=== PATIENT | female | born 1960 | race Caucasian/White ===

== ENCOUNTER → 2018-01-16 12:26 | Outpatient (CLI) | payer OTHER, SELFPAY ==
--- NOTE | 2018-01-16 12:26 | DT_ITS ---
This patient was seen during an EMR downtime January 14, 2018 - January 21, 2018. This patient may have a combination of paper and electronic documentation or all paper documentation. All documentation is viewable within the e-chart portion of [facility] for each patient visit.
[2018-01-21 12:39] LABS: AST(SGOT) 19 U/L (15-37); Alanine Aminotransfer ALT/SGPT 33 U/L (13-56); Albumin, Serum 4.2 g/dL (3.2-5.0); Alkaline Phosphatase 57 U/L (45-117); Bilirubin, Direct 0.09 mg/dL (0.00-0.30); Cholesterol 226 mg/dL (200); Globulin 3.7 g/dL (2.2-4.2); High Density Lipoprotein 50 mg/dL; Protein, Total 7.9 g/dL (6.4-8.2); Triglycerides 173 mg/dL; Very Low Density Lipoprotein 35 mg/dL (5-40)
== END ==
PROVIDERS: Family Provider Family Medicine; PCP Family Medicine; Visit Provider Internal Medicine Cardiovascular Disease
DX: I10 Essential (primary) hypertension (principal); I35.1 Nonrheumatic aortic (valve) insufficiency
CPT/HCPCS: 36415; 80061; 80076

== ENCOUNTER 2018-01-16 12:56 | Emergency (ER) | payer OTHER, SELFPAY ==
--- NOTE | 2018-01-16 12:56 | DT_ITS ---
This patient was seen during an EMR downtime January 14, 2018 - January 21, 2018. This patient may have a combination of paper and electronic documentation or all paper documentation. All documentation is viewable within the e-chart portion of [facility] for each patient visit.
== END 2018-01-16 13:50 | disposition home or self-care (01) ==
LOC: ED 01-17 13:41
PROVIDERS: Emergency Provider Emergency Medicine; Family Provider Family Medicine; PCP Family Medicine
DX: L03.115 Cellulitis of right lower limb (principal); I10 Essential (primary) hypertension; R01.1 Cardiac murmur, unspecified; Z90.710 Acquired absence of both cervix and uterus; Z90.89 Acquired absence of other organs; Z79.899 Other long term (current) drug therapy; Z87.891 Personal history of nicotine dependence
CPT/HCPCS: 99282

== ENCOUNTER → 2018-01-24 08:03 | Outpatient (CLI) | payer OTHER, SELFPAY ==
--- NOTE | 2018-01-24 08:06 | ECHOD_ITS ---
Reason For Study: Non rheumatic AV insufficiency, HTN. Procedure This was a 2D Doppler, Color Flow transthoracic echocardiogram. Exam performed in department. Left Ventricle Moderate concentric left ventricular hypertrophy. The estimated ejection fraction is 65 %. Stage 1 diastolic dysfunction. No regional wall motion abnormalities noted. Right Ventricle Normal size and thickness. Normal systolic function. Atria The left atrium is mildly enlarged. Normal right atrium. Normal atrial septum. Mitral Valve The mitral valve is structurally normal. No prolapse or stenosis seen. Tricuspid Valve Normal tricuspid valve. Trivial tricuspid valve insufficiency. Right ventricular systolic pressure estimated to be 27 mmHg. Aortic Valve Trisinus/trileaflet aortic valve. Mild diffuse aortic valve thickening. Mild-Moderate (1-2+) eccentric aortic valve insufficiency. Pulmonic Valve Normal pulmonic valve. Great Vessels Normal aortic root. Normal arch. Normal inferior vena cava. Inferior vena cava collapse with sniff. Pericardium/Pleural No pericardial effusion. MMode/2D Measurements & Calculations LVIDd: 4.6 cm IVSd: 1.4 cm Ao root diam: 3.1 cm LVIDs: 3.0 cm LVPWd: 1.4 cm LA dimension: 4.8 cm RVDd: 2.7 cm FS: 35.4 % LAV(MOD-bp): 59.5 ml LA A4 area: 20.5 cm2 RA A4 area: 18.6 cm2 LAV(MOD-bp) Indexed: 30.2 ml/m2 LAV(MOD-sp2): 55.7 ml LAV(MOD-sp4): 55.6 ml Doppler Measurements & Calculations MV E max tigre: 58.4 cm/sec Lat Peak E' Tigre: 6.7 cm/sec Med Peak E' Tigre: 7.3 cm/sec MV A max tigre: 113.1 cm/sec E/E' lat: 8.7 E/E' med: 8.0 MV E/A: 0.52 Ao V2 max: 206.0 cm/sec AI max tigre: 452.9 cm/sec LV V1 max: 141.4 cm/sec Ao max P.0 mmHg AI max P.1 mmHg LV V1 max P.0 mmHg Ao V2 mean: 138.3 cm/sec AI dec slope: 193.1 cm/sec2 LV V1 mean P.6 mmHg Ao mean P.7 mmHg AI P1/2t: 686.9 msec LV V1 mean: 103.1 cm/sec Ao V2 VTI: 45.9 cm LV V1 VTI: 34.1 cm PA V2 max: 99.0 cm/sec TR max tigre: 240.6 cm/sec TR max P.2 mmHg Interpretation Summary Moderate concentric left ventricular hypertrophy. The estimated ejection fraction is 65 %. Stage 1 diastolic dysfunction. Trivial tricuspid valve insufficiency. Right ventricular systolic pressure estimated to be 27 mmHg. Mild-Moderate (1-2+) eccentric aortic valve insufficiency. Compared to echo report dated 04/25/2010, no appreciable changes noted. Would consider a transesophageal echocardiogram if clinically indicated. Ordering Physician: Jimi Yi Referring Physician: Benny Ivy Performed By: Sharon Morillo, RDCS, RVT
== END ==
PROVIDERS: Family Provider Family Medicine; PCP Family Medicine; Visit Provider Internal Medicine Cardiovascular Disease
DX: I35.1 Nonrheumatic aortic (valve) insufficiency (principal); I10 Essential (primary) hypertension
CPT/HCPCS: 93306

== ENCOUNTER 2018-02-02 09:20 | Emergency (ER) | payer OTHER, SELFPAY ==
[2018-02-02 09:21] VITALS: BP 163/93; PULSE 74; RESP 16; TEMP 36.7; O2SAT 98; BMI 29.5
--- NOTE | 2018-02-02 09:32 | CT_ITS ---
STUDY: CT ABDOMEN AND PELVIS WITHOUT CONTRAST REASON FOR EXAM: Female, 57 years old. Abdominal pain and nausea RADIATION DOSAGE (If Supplied By Facility): CTDIvol = ( 11.37 ) mGy, DLP = ( 587.89 ) mGycm TECHNIQUE: Transaxial images were obtained from the lower chest to the upper thighs without oral contrast, and without intravenous contrast. Sagittal and coronal images were reconstructed. Individualized dose optimization techniques were used for this CT. COMPARISON: November 08, 2015 FINDINGS: There is minimal dependent atelectasis in both lung bases. There is no pleural effusion. The heart is normal in size. The liver is unremarkable. The gallbladder and biliary ducts are unremarkable. The spleen is unremarkable. The pancreas is unremarkable. The adrenal glands are unremarkable. The right kidney is unremarkable. There is no dilatation of the collecting system in the right kidney. The left kidney is unremarkable. There is no dilatation of the collecting system in the left kidney. The stomach is unremarkable. The small bowel is unremarkable. There are diverticula scattered throughout the colon without adjacent stranding. The appendix is surgically absent. There are minimal scattered vascular calcifications. The IVC is unremarkable. The retroperitoneum is unremarkable. There is no free fluid in the abdomen. The urinary bladder is unremarkable. There is absence of the uterus consistent with a prior hysterectomy. There are no abnormal masses in the adnexal regions. There are surgical changes along the anterior abdominal wall. There are mild degenerative changes in the visualized spine. CT/Abdomen/Pelvis without Cont IMPRESSION: No acute abnormalities are seen in the abdomen or pelvis. There is diverticulosis of the colon without findings to suggest acute diverticulitis. There are no acute bowel abnormalities. There is no ascites, free air, inflammation or significant lymphadenopathy. Electronically Signed: Angela Cherry MD at 10:40 EDT Tel Direct: [phone], Service support ,
--- NOTE | 2018-02-02 09:33 | ED.VISSUMM ---
- ER Visit Summary Date of Service: 02/02/18 Chief Complaint: []abdominal pain nausea since Sunday History of Present Illness: The patient is a 57 F [] history of being born with a twisted bowel , than 7 years ago she had a bowel obstruction related to adhesions, appendectomy, reports on Sunday she ate some unspecified food at a restaurant since then she has had protracted sense of nausea and abdominal pressure she is having normal bowel bladder habits she is not vomited and she is actually hungry, the sense of nausea intensified and she came in today for evaluation, no fever no cough bowel and bladder habits have been normal, she has a leaky heart valve being seen by Dr. Yi and that is stable otherwise she denies a past history except as above Physical Examination: [] Her vital signs are within normal range she is in no distress head exam is unremarkable nose and throat are clear the neck is supple the lungs are clear the heart tones are normal the abdomen is soft is a vague pain to the right upper quadrant, there is no rebound guarding organomegaly the upper lower extremities are unremarkable the backs unremarkable neurologically she is awake alert answering questions moving all 4 extremities with a negative neurologic exam Test Results: [] Emergency Department Course and Treatment: [] IV fluids pain management labs CT abdomen Patient's labs CT abdomen pelvis show nothing acute please see those reports on reevaluation she is feeling better She is asking if maybe lifting boxes could have caused her abdominal pain I respond to the exact etiology is unclear some of her pain was right-sided, some of it related to eating food at a restaurant have explained her the concept of hepatobiliary dysfunction need for follow-up avoid lifting the boxes bland diet she will see her surgeon Dr. saha for further management and return for change in symptoms Treatment Plan: [] Disposition: [] Home stable Impression: [] Abdominal pain and nausea resolved This note was generated with [employer] dictation software. It may contain incorrect words, spelling, and punctuation that were not noted in review of the chart prior to signing ED Disposition - Plan for ED Patient: Chief Complaint: Abd Pain Referrals: Sailaja Elizalde MD [Primary Care Provider] -
[2018-02-02 09:48] LABS: Bacteria 0 SEEN /hpf (None Seen); Mucous, Urine 0 SEEN /hpf (<or=2+); Squamous Epithelial Cells - UA 0 SEEN /hpf (5-10); White Blood Cells 0 SEEN /hpf (0-5)
[2018-02-02 09:50] LABS: Color, Urine Yellow (Yellow); Glucose, Dipstick Normal (Normal); Ketone-Dipstick Negative (Negative); Leukocyte Esterase-Dipstick Negative /ul (Negative); Nitrite-Dipstick Negative (Negative); Occult Blood-Urine 10 /ul (Negative); Protein-Dipstick Negative (Negative); Urine Bilirubin Dipstick Negative (Negative); Urine Clarity Clear (Clear); Urine Urobilinogen Normal (Normal)
[2018-02-02] MEDS: 0.9% Normal Saline 1,000 ML 1000 ML IV (09:56)
[2018-02-02] MEDS: Ondansetron 4 MG/2 ML Vial IV (09:56)
[2018-02-02 10:01] LABS: Red Blood Cells-Urine 0-5 SEEN /hpf (0-5)
[2018-02-02 10:06] LABS: Absolute Lymphocyte Count 2.01 X10^3/ul (0.83-4.51); Absolute Neutrophil Count 5.2 X10^3/uL (2.0-7.7); Basophil# 0.06 X10^3/uL; Basophil% 0.8 % (0-1); Eosinophil# 0.11 X10^3/uL; Eosinophils% 1.4 % (0-5); Hematocrit 41.7 % (37-47); Hemoglobin 14.3 g/dl (12.0-15.0); Lymphocyte # 2.01 X10^3/ul (4.0); Lymphocyte % 25.3 % (19-41); Mean Corp Hgb Conc 34.3 g/gl (32-36); Mean Corpuscular Hgb 30.2 pg (27.0-32.0); Mean Platelet Vol. 9.5 fl (6.2-12.0); Monocyte# 0.55 X10^3/uL; Monocyte% 6.9 % (0-10); Neutrophil % 65.3 % (47-70); POSITIVE COUNT NO; POSITIVE DIFFERENTIAL NO; POSITIVE MORPHOLOGY NO; Platelet Count 367 K/mm3 (150-450); RBC Distribution Width CV 13.9 % (11.6-14.6); RBC Distribution Width SD 44.5 fl (35.1-43.9); Red Blood Count 4.74 M/mm3 (4.2-5.4)
[2018-02-02 10:23] LABS: AST(SGOT) 19 U/L (15-37); Alanine Aminotransfer ALT/SGPT 33 U/L (13-56); Albumin, Serum 4.3 g/dL (3.2-5.0); Alkaline Phosphatase 85 U/L (45-117); Anion Gap 6 (5-15); BUN 13 mg/dL (7-18); BUN/Creat Ratio 16.4 RATIO (10-20); Bilirubin, Direct 0.16 mg/dL (0.00-0.30); Calcium,Total 9.5 mg/dL (8.5-10.1); Chloride 105 mmol/L (98-107); Creatinine, Serum 0.79 mg/dL (0.55-1.02); EST Glomerular Filtration Rate 79 mL/min (>60); Est Glom Filt Rate - Afr Amer 95 mL/min (>60); Estimated Creatinine Clearance 74.56 ml/min; Globulin 3.8 g/dL (2.2-4.2); Glucose 101 mg/dL (74-106); Lipase 100 U/L (73-393); Potassium 3.6 mmol/L (3.5-5.1); Protein, Total 8.1 g/dL (6.4-8.2); Sodium Level 138 mmol/L (136-145)
--- NOTE | 2018-02-02 11:22 | ED.DEP ---
ED Disposition - Plan for ED Patient: Chief Complaint: Abd Pain Instructions: ED Abdominal Pain Unkn Cause Prescriptions: Ondansetron [Zofran Odt] 4 mg PO Q8H PRN PRN #10 tab PRN Reason: Nausea Referrals: Sailaja Elizalde MD [Primary Care Provider] -
[2018-02-02 11:30] VITALS: BP 151/90; PULSE 63; RESP 16; O2SAT 94
== END 2018-02-02 11:32 | disposition home or self-care (01) ==
PROVIDERS: Emergency Provider Emergency Medicine; Family Provider Internal Medicine; PCP Internal Medicine
DX: R10.11 Right upper quadrant pain (principal); R11.0 Nausea; I38 Endocarditis, valve unspecified; Z87.19 Personal history of other diseases of the digestive system; Z90.89 Acquired absence of other organs; Z79.899 Other long term (current) drug therapy
CPT/HCPCS: 74176; 80048; 80076; 81001; 83690; 85025; 96361; 96374; 96375; 99284; J7030; A4216; J2405

== ENCOUNTER → 2018-02-18 08:27 | Outpatient (CLI) | payer OTHER, SELFPAY ==
--- NOTE | 2018-02-18 08:30 | STEWCON_ITS ---
Reason For Study: Valve Replacement-Eval Stress Results Protocol: Bobo Protocol Maximum Predicted HR: 161 bpm Target HR: 137 bpm% Max imum Predicted HR: 103 % DurationHeart Rate Stage (mm:ss) (bpm) BPCom ment Baseline 63 138/80 No Chest Pain; Definity 2 ML Diluted Given Bobo Protocol Stage I 3:00 12 9 140/72No Chest Pain; Mild Dyspnea Bobo Protocol Stage II 3:00 15 3 172/80No Chest Pain; Mild to Moderate Dyspnea Bobo Protocol Stage III 1:15 16 6 / No Chest Pain; Moderate Dyspnea Recovery 90 122/84 No Chest Pain Stress Duration: 7:15 mm:ss Maximum Stress HR: 166 bpmM ETS: 10 Baseline Echocardiogram Findings The estimated ejection fraction is 65 %. Stress Echo Wall motion Data Resting WMIntermediate WMStress WM Resting Wall Motion Wall Motion Stress No regional wall motion No regional wall motion abnormalities noted. abnormalities noted. EKG Data Normal intervals are noted. The patient exercised according to the regular Bobo protocol for a total duration of 7:15. The maximum heart rate attained was 171 beats per minute. This was 106% of maximum predicted heart rate. The patient exercised into stage 3 of the Bobo protocol. During stress, there were no ST or T wave changes noted to suggest ischemia. No clinical angina was noted. No arrhythmias noted. Interpretation Summary The study was technically difficult. Contrast injection was performed. The estimated ejection fraction is 65 %. Normal, adequate, treadmill echocardiogram. Negative for ischemia by EKG and echocardiographic criteria. No anginal symptoms noted. No arrhythmias noted. Appropriate blood pressure response to exercise. Average exercise capacity for age. Decreased sensitivity due to poor echo windows requiring Definity enhancement agent. Final LVEF of 75%. Ordering Physician: Jimi Yi Referring Physician: Jimi Yi Performed By: Sharon Morillo, MARIA INESCS, RVT
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
[2018-02-18 11:37] LABS: Anion Gap 12 (5-15); BUN 16 mg/dL (7-18); BUN/Creat Ratio 17.2 RATIO (10-20); Calcium,Total 9.3 mg/dL (8.5-10.1); Chloride 101 mmol/L (98-107); Creatinine, Serum 0.93 mg/dL (0.55-1.02); EST Glomerular Filtration Rate 66 mL/min (>60); Est Glom Filt Rate - Afr Amer 79 mL/min (>60); Glucose 96 mg/dL (74-106); Potassium 3.3 mmol/L (3.5-5.1); Sodium Level 143 mmol/L (136-145)
== END ==
PROVIDERS: Family Provider Internal Medicine; PCP Internal Medicine; Visit Provider Internal Medicine Cardiovascular Disease
DX: I10 Essential (primary) hypertension (principal); I35.1 Nonrheumatic aortic (valve) insufficiency; M51.26 Other intervertebral disc displacement, lumbar region; M99.03 Segmental and somatic dysfunction of lumbar region
CPT/HCPCS: 36415; 72100; 80048; 93017; 93350; Q9957; A4216; C8928

== ENCOUNTER 2018-03-11 16:36 | Outpatient (RCR) | payer OTHER, SELFPAY | END 2018-03-11 23:59 | LOC: NS 16:36 | PROVIDERS: Family Provider Internal Medicine; PCP Internal Medicine; Visit Provider Internal Medicine | DX: E66.3 Overweight (principal); Z71.3 Dietary counseling and surveillance | CPT/HCPCS: 97802 ==

== ENCOUNTER 2018-06-19 09:07 | Emergency (ER) | payer OTHER, SELFPAY ==
[2018-06-19 09:08] VITALS: BP 140/77; PULSE 98; RESP 16; TEMP 35.5; O2SAT 96; BMI 29.0
--- NOTE | 2018-06-19 09:35 | ED.DCSUM_ITS ---
- ER Visit Summary Date of Service: 06/19/18 Chief Complaint: Abdominal pain History of Present Illness: The patient is a 57 F who states that yesterday she developed a epigastric abdominal pain described as sharp and constant radiating around the sides and into her back. She notes nausea. She has had a prior bowel movements. She states that she has a history of malrotation with subsequent surgery, appendectomy, hysterectomy, as well as small bowel obstruction with adhesion of lysis. She denies any fevers. She states that today the pain was significantly worse she called her doctor's office and they advised her to come to the hospital. Physical Examination: Afebrile vital signs are stable Gen: Well-nourished well-developed Head: Normocephalic atraumatic Eyes: Perrl EOMI ENT: TMs clear no rhinorrhea moist mucous membranes Neck: Supple no lymphadenopathy no JVD nontender CVS: Regular rate rhythm 2 out of 6 diastolic murmur Respiratory: No distress clear to auscultation bilaterally chest nontender Abdomen: Soft tender to palpation in the upper abdomen with guarding. Nondistended normal bowel sounds no masses Back: Nontender Extremity: Nontender no edema Skin: Normal color no rash Neuro: alert orientated ?3 CN II-XII intact normal strength sensation reflexes gait cerebellar Psych: Normal affect normal mood Test Results: CBC CMP and lipase were normal except for potassium of 2.7. Magnesium 2.2. EKG shows sinus rhythm with first-degree AV block at a rate of 54. I have no old EKG to compare to. CT of the abdomen pelvis demonstrates sigmoid diverticulosis but no obvious intra-abdominal acute pathology. Emergency Department Course and Treatment: Patient received p.o. and IV potassium. We will increase the patient's potassium. I spoke with Dr. Yi who would prefer the patient to be on a diuretic with her aortic insufficiency. Patient is comfortable with her plan and will follow up return if worsening or concerns Impression: 1. Acute abdominal pain 2. Hypokalemia This note was generated with [employer] dictation software. It may contain incorrect words, spelling, and punctuation that were not noted in review of the chart prior to signing ED Disposition - Plan for ED Patient: Disposition: Home or Assisted Living Chief Complaint: Abd Pain Instructions: ED Potassium Deficiency Prescriptions: Potassium Chloride 20 meq PO DAILY #1 tab.er.prt Referrals: Sailaja Elizalde MD [Primary Care Provider] - 1 Week Additional Instructions: For the next 4 days take 40 mEq of potassium. Then after that take 20 mEq a day.
[2018-06-19 09:53] LABS: Absolute Lymphocyte Count 2.25 X10^3/ul (0.83-4.51); Basophil# 0.02 X10^3/uL; Basophil% 0.3 % (0-1); Eosinophil# 0.09 X10^3/uL; Eosinophils% 1.1 % (0-5); Hemoglobin 13.5 g/dl (12.0-15.0); Lymphocyte # 2.25 X10^3/ul (4.0); Lymphocyte % 28.3 % (19-41); Mean Corp Hgb Conc 32.9 g/gl (32-36); Mean Corpuscular Hgb 30.1 pg (27.0-32.0); Mean Corpuscular Volume 91.3 fL (81-99); Mean Platelet Vol. 9.3 fl (6.2-12.0); Monocyte# 0.57 X10^3/uL; Monocyte% 7.2 % (0-10); Neutrophil # 5.01 X10^3/uL (2.7-7.7); Neutrophil % 62.8 % (47-70); Platelet Count 337 K/mm3 (150-450); RBC Distribution Width CV 13.7 % (11.6-14.6); RBC Distribution Width SD 44.9 fl (35.1-43.9); Red Blood Count 4.49 M/mm3 (4.2-5.4)
[2018-06-19] MEDS: Ondansetron 4 MG/2 ML Vial IV (09:54)
[2018-06-19] MEDS: 0.9% Normal Saline 1,000 ML 1000 ML IV (09:54)
[2018-06-19 09:58] LABS: POSITIVE COUNT NO; POSITIVE DIFFERENTIAL NO; POSITIVE MORPHOLOGY NO
--- NOTE | 2018-06-19 10:17 | ED.RN ---
LAB RESULTED POTASSIUM 2.7, PHYSICIAN NOTIFIED
[2018-06-19 10:18] LABS: ALB/GLOB Ratio 0.9 RATIO (0.9-2.4); AST(SGOT) 23 U/L (15-37); Alanine Aminotransfer ALT/SGPT 36 U/L (13-56); Albumin, Serum 3.7 g/dL (3.2-5.0); Alkaline Phosphatase 85 U/L (45-117); Anion Gap 7 (5-15); BUN 13 mg/dL (7-18); Calcium,Total 8.8 mg/dL (8.5-10.1); Chloride 100 mmol/L (98-107); Creatinine, Serum 0.87 mg/dL (0.55-1.02); EST Glomerular Filtration Rate 71 mL/min (>60); Est Glom Filt Rate - Afr Amer 86 mL/min (>60); Estimated Creatinine Clearance 70.23 ml/min; Glucose 101 mg/dL (74-106); Lipase 97 U/L (73-393); Potassium 2.7 mmol/L (3.5-5.1); Protein, Total 7.7 g/dL (6.4-8.2); Sodium Level 141 mmol/L (136-145)
--- NOTE | 2018-06-19 10:18 | EKG12_ITS ---
Test Reason : HYPOKALEMIA Blood Pressure : / mmHG Vent. Rate : 054 BPM Atrial Rate : 054 BPM P-R Int : 220 ms QRS Dur : 096 ms QT Int : 514 ms P-R-T Axes : 043 -04 068 degrees QTc Int : 487 ms Sinus bradycardia with 1st degree A-V block Left ventricular hypertrophy with repolarization abnormality Prolonged QT Abnormal ECG Confirmed by MISSY MARTINEZ, PERRY ([id number]), editor magazine QUIN PHAM ([id number]) on 06/20/2018 3:45:29 PM Referred By: GLENN Confirmed By:PERRY LOUIS MD
--- NOTE | 2018-06-19 10:20 | CT_ITS ---
STUDY: CT ABDOMEN AND PELVIS WITH CONTRAST REASON FOR EXAM: Female, 57 years old. Abdominal pain and nausea. RADIATION DOSAGE (If Supplied By Facility): CTDIvol = ( 21.80 ) mGy, DLP = ( 1319.46 ) mGycm TECHNIQUE: Transaxial images were obtained from the dome of the diaphragm to the symphysis pubis without oral contrast. 100ML ml of Isovue 300 contrast was administered. Sagittal and coronal images were reconstructed. Individualized dose optimization techniques were used for this CT. COMPARISON: Comparison is made with prior study dated February 02, 2018. FINDINGS: Minimal degree of dependent bibasilar atelectasis. Coronary artery calcification. Normal liver. Normal gallbladder and extrahepatic biliary system. Normal spleen. Normal pancreas. Normal bilateral adrenal glands. Normal right kidney. Normal left kidney. Normal visualized stomach. Normal small intestine. There are multiple colonic diverticula consistent with diverticulosis. The appendix is visualized and appears normal. There is scattered atherosclerotic calcification of the abdominal aorta, without a demonstrated aneurysm. Normal inferior vena cava. Normal retroperitoneum. Normal urinary bladder. There is absence of the uterus consistent with a prior hysterectomy. Stable postsurgical changes in the anterior abdominal wall. There are mild degenerative changes of the visualized lumbar spine. CT/Abdomen/Pelvis W IV Cont ONLY IMPRESSION: Sigmoid diverticulosis. No acute abnormality is seen. Electronically Signed: Duy Coppola MD at 11:31 EST Tel [phone], Service support ,
--- NOTE | 2018-06-19 10:22 | NURSING ---
NO OLD EKGS
[2018-06-19 10:46] LABS: Magnesium 2.2 mg/dL (1.6-2.6)
[2018-06-19 11:07] VITALS: BP 114/68; PULSE 59; RESP 16; O2SAT 95
[2018-06-19 12:47] LABS: Bacteria 0 SEEN /hpf (None Seen); Mucous, Urine 0 SEEN /hpf (<or=2+); Red Blood Cells-Urine 0 SEEN /hpf (0-5); White Blood Cells 0 SEEN /hpf (0-5)
[2018-06-19 12:50] LABS: Color, Urine Yellow (Yellow); Specific Gravity, Urine 1.005 (1.002-1.030); Urine Clarity Sl Cldy (Clear)
[2018-06-19 12:51] LABS: Glucose, Dipstick NEGATIVE (Normal); Leukocyte Esterase-Dipstick Negative /ul (Negative); Nitrite-Dipstick Negative (Negative); Protein-Dipstick 15 mg/dl (Negative)
[2018-06-19 12:52] LABS: Ketone-Dipstick Negative (Negative); Occult Blood-Urine Negative /ul (Negative); Urine Bilirubin Dipstick Negative (Negative); Urine Urobilinogen Normal (Normal)
[2018-06-19 13:00] VITALS: PULSE 65; RESP 16; O2SAT 95
[2018-06-19 13:00] LABS: Squamous Epithelial Cells - UA 0-5 SEEN /hpf (5-10)
== END 2018-06-19 13:21 | disposition home or self-care (01) ==
PROVIDERS: Emergency Provider Emergency Medicine; Family Provider Internal Medicine; PCP Internal Medicine
DX: R10.13 Epigastric pain (principal); E87.6 Hypokalemia; R01.1 Cardiac murmur, unspecified; I44.0 Atrioventricular block, first degree; K57.30 Diverticulosis of large intestine without perforation or abscess without bleeding; I10 Essential (primary) hypertension; I35.1 Nonrheumatic aortic (valve) insufficiency; Z87.19 Personal history of other diseases of the digestive system; Z79.899 Other long term (current) drug therapy; Z72.0 Tobacco use
CPT/HCPCS: 74177; 80053; 81001; 83690; 83735; 85025; 93005; 96361; 96365; 96374; 99284; J7030; Q9967; A4216; J2405

== ENCOUNTER → 2018-06-25 12:24 | Outpatient (CLI) | payer OTHER, SELFPAY ==
[2018-06-25 14:03] LABS: Anion Gap 6 (5-15); BUN 13 mg/dL (7-18); Calcium,Total 8.9 mg/dL (8.5-10.1); Chloride 106 mmol/L (98-107); Creatinine, Serum 0.81 mg/dL (0.55-1.02); EST Glomerular Filtration Rate 76 mL/min (>60); Est Glom Filt Rate - Afr Amer 92 mL/min (>60); Glucose 82 mg/dL (74-106); Potassium 3.6 mmol/L (3.5-5.1); Sodium Level 143 mmol/L (136-145)
== END ==
PROVIDERS: Family Provider Internal Medicine; PCP Internal Medicine; Referring Provider Internal Medicine; Visit Provider Internal Medicine
DX: E87.6 Hypokalemia (principal)
CPT/HCPCS: 36415; 80048

== ENCOUNTER → 2018-11-14 07:25 | Outpatient (CLI) | payer OTHER, SELFPAY ==
[2018-09-20 14:45] VITALS: BMI 29.6
--- NOTE | 2018-11-14 07:00 | BI_ITS ---
MAMMOGRAPHY - BILATERAL SCREENING REASON FOR EXAM: Female, 58 years old. Routine annual screening examination. PERTINENT HISTORY: Non-contributory. TECHNIQUE: Digital bilateral breast vishnu (3D mammographic acquisition) in the CC and MLO projections. 2-D mediolateral oblique (MLO) and craniocaudad (CC) views of both breasts were obtained. CAD: Full Field Digital Mammography with Computer Added Detection was performed. COMPARISON: Comparison is made with prior osseous examination dated October 06, 2016. FINDINGS: Breast Composition: There are scattered areas of fibroglandular density. There are no dominant masses or suspicious calcifications. Stable bilateral axillary lymph nodes. No other significant abnormalities are identified. There has been no significant change since the prior study. BI/SCREEN MAMM (CAD) W/VISHNU BILAT IMPRESSION: Stable bilateral screening mammogram. Yearly follow-up mammogram recommended. (A) ASSESSMENT CATEGORY: BIRADS Category 2: Benign. A letter regarding these results will be sent to the patient by the facility within 30 days. Approximately 10% of breast cancers are not detected by mammography. A normal mammogram should not delay biopsy of a clinically suspicious abnormality. [id number] Electronically Signed: Duy Coppola, at 8:06 EDT , Service support ,
== END ==
PROVIDERS: Family Provider Internal Medicine; PCP Internal Medicine; Referring Provider Obstetrics & Gynecology; Visit Provider Obstetrics & Gynecology
DX: Z12.31 Encounter for screening mammogram for malignant neoplasm of breast (principal)
CPT/HCPCS: 77063; 77067

== ENCOUNTER → 2019-02-04 | Outpatient (CLI) | payer OTHER, SELFPAY ==
[2019-02-04 11:26] VITALS: BMI 31.1
--- NOTE | 2019-02-04 12:37 | RAD_ITS ---
STUDY: X-RAY CHEST REASON FOR EXAM: Female, 58 years old. Shortness of breath TECHNIQUE: PA and lateral views of the chest. COMPARISON: 08/18/2014 FINDINGS: The lungs are clear and expanded. There is no demonstrated pleural abnormality. Normal size heart. Normal mediastinum and alexandre. Normal visualized pulmonary arteries. There is atherosclerotic tortuosity of the aortic arch and descending thoracic aorta. Normal visualized thoracic spine. Normal visualized ribs, clavicles, and shoulders. There is no demonstrated abnormality of the visualized soft tissue structures of the upper abdomen. RAD/Chest PA and Lateral IMPRESSION: Normal x-ray examination of the chest. Electronically Signed: Jose Ttoh MD at 16:48 EDT Tel , Service support ,
== END | disposition home or self-care (01) ==
PROVIDERS: Family Provider Internal Medicine; PCP Internal Medicine; Referring Provider Internal Medicine Cardiovascular Disease; Visit Provider Internal Medicine Cardiovascular Disease
DX: R06.09 Other forms of dyspnea (principal); I35.1 Nonrheumatic aortic (valve) insufficiency; E78.5 Hyperlipidemia, unspecified; E66.9 Obesity, unspecified
CPT/HCPCS: 71046

== ENCOUNTER → 2019-02-06 | Outpatient (CLI) | payer OTHER, SELFPAY ==
[2019-02-04 11:26] VITALS: BMI 31.1
[2019-02-06 13:35] LABS: Hematocrit 41.3 % (37-47); Hemoglobin 13.8 g/dl (12.0-15.0); Mean Corp Hgb Conc 33.4 g/gl (32-36); Mean Corpuscular Hgb 29.4 pg (27.0-32.0); Mean Corpuscular Volume 88.1 fL (81-99); Mean Platelet Vol. 9.9 fl (6.2-12.0); Platelet Count 386 K/mm3 (150-450); RBC Distribution Width CV 13.5 % (11.6-14.6); RBC Distribution Width SD 43.3 fl (35.1-43.9); Red Blood Count 4.69 M/mm3 (4.2-5.4); Scan Indicated on CBC? Y/N NO; White Blood Count 6.8 K/mm3 (4.4-11.0)
[2019-02-06 13:53] LABS: Prothrombin Time (Protime)PT. 12.8 SECONDS (11.7-14.9)
[2019-02-06 13:55] LABS: Anion Gap 8 (5-15); BUN 14 mg/dL (7-18); BUN/Creat Ratio 17.6 RATIO (10-20); Calcium,Total 9.2 mg/dL (8.5-10.1); Chloride 107 mmol/L (98-107); Creatinine, Serum 0.79 mg/dL (0.55-1.02); EST Glomerular Filtration Rate 78 mL/min (>60); Est Glom Filt Rate - Afr Amer 95 mL/min (>60); Glucose 94 mg/dL (74-106); Partial Thromboplast Time 30.4 Seconds (24.1-36.2); Sodium Level 142 mmol/L (136-145)
== END | disposition home or self-care (01) ==
LOC: LAB 12:41
PROVIDERS: Family Provider Internal Medicine; PCP Internal Medicine; Referring Provider Internal Medicine Cardiovascular Disease; Visit Provider Internal Medicine Cardiovascular Disease
DX: I35.1 Nonrheumatic aortic (valve) insufficiency (principal); R06.09 Other forms of dyspnea; R07.9 Chest pain, unspecified
CPT/HCPCS: 36415; 80048; 85027; 85610; 85730

== ENCOUNTER 2019-02-10 08:03 | Day surgery (SDC) | payer OTHER, SELFPAY ==
[2019-02-04 11:26] VITALS: BMI 31.1
[2019-02-07 08:39] VITALS: BMI 31.1
--- NOTE | 2019-02-10 08:10 | ECHOTEE_ITS ---
Reason For Study: Aortic valve insufficiency Medication ALONDRA probe passed without difficulty. No complications were noted. [id number] gargled and swallowed. Cetacaine Topical [place] given X2 orally. Versed 2 mg given slow IVP. Fentanyl 25 mcg given slow IVP. Performed a rapid injection of agitated mix of 9 cc saline and 1cc air to assess for atrial septal defect. Left Ventricle Normal size and thickness. The estimated ejection fraction is 65 %. Unable to assess diastolic dysfunction. No regional wall motion abnormalities noted. Right Ventricle Normal size and thickness. The right ventricular wall motion is normal. Atria Normal atrial septum. Bubble contrast study negative for right to left interatrial shunt. Normal left atrium. Normal right atrium. Mitral Valve The mitral valve is structurally normal. No prolapse or stenosis seen. Tricuspid Valve Normal tricuspid valve. Trivial tricuspid valve insufficiency. Unable to estimate RV systolic pressure due to insufficient tricuspid regurgitant envelope. Aortic Valve Trisinus/trileaflet aortic valve. Mild focal aortic valve thickening. Moderately severe (3+) aortic valve insufficiency. Pulmonic Valve Normal pulmonic valve. Vessels Moderately dilated aortic root. Normal arch. The pulmonary artery is normal size. Pulmonary venous flow normal. Interpretation Summary The estimated ejection fraction is 65 %. Unable to assess diastolic dysfunction. Bubble contrast study negative for right to left interatrial shunt. Trivial tricuspid valve insufficiency. Unable to estimate RV systolic pressure due to insufficient tricuspid regurgitant envelope. Moderately severe (3+) aortic valve insufficiency. Moderately dilated aortic root of 4.2 cm. Pulmonary venous flow normal. Ordering Physician: Jimi Yi Referring Physician: Sailaja Elizalde Performed By: Hansa Alamo RDCS
[2019-02-10 11:45] LABS: Blood Gas Specimen Type VEN; VBG BASE EXCESS 0 mmol/L (-1.0-3.5); VBG Bicarbonate 26 mmol/L (22-26); VBG Oxygen Content 27 mmol/L (23-33); VBG PO2 37 mmHg (25-40); VBG SO2 68 % (50-70); VBG pCO2 45.8 mmHg (41-51); VBG pH 7.36 (7.32-7.42)
[2019-02-10 11:45] LABS: Blood Gas Specimen Type VEN; VBG BASE EXCESS -2 mmol/L (-1.0-3.5); VBG Bicarbonate 24 mmol/L (22-26); VBG Oxygen Content 25 mmol/L (23-33); VBG PO2 39 mmHg (25-40); VBG SO2 72 % (50-70); VBG pH 7.36 (7.32-7.42)
[2019-02-10 11:45] LABS: Base Excess -5 mmol/L (-2 to +2); Bicarbonate 21.4 mmol/L (22-26); Blood Gas Specimen Type ART; PO2 81 mmHG (75-100); SO2 94 % (95-99); Total Carbon Dioxide 23 mmol/L; pCO2 45.4 mmHg (35-45); pH 7.28 (7.35-7.45)
--- NOTE | 2019-02-10 11:57 | CL.D_ITS ---
Patient Name: JASSON GRIMALDO Study Date: 02/10/2019 Performing: Jimi Yi MD Ht: 66.92 inches 170 cm : 1960 Wt: 198.42 lbs 90 kg Age: 58 Gender: female BSA: 2.01 PROCEDURE(S) PERFORMED [id number]/LHC/COR/LV [id number]-AO ROOT ANGIO WITH HEART CATH CLINICAL PROFILE AND INDICATIONS Indications: Suspected CAD, Valvular Disease Heart Failure: None Stress/Imaging Date: 02/18/2018Stress Echocardiogram: Negative Angina Classification Anginal Classification w/in 2 Weeks: CCS III CAD Presentations: Other: Aortic insufficiency, dyspnea on exertion. Comorbidities/Risk Factors: Hypertension Dyslipidemia CONCLUSIONS Normal coronary arteries Normal LV size, wall motion,and systolic function Perserved Left Ventricular systolic function with normal EDP Cardiac output - Preserved Aortic Valve Insufficiency Moderate to severe The patient has normal pulmonary hemodynamics. Aortic Root dilated RECOMMENDATIONS Surgery consult for Valve Replacement and aortic root surgery Pt to notify Dr Yi regarding hospital to refer for AVR and Aortic root replacement. Manual sheath removal. DESCRIPTION OF PROCEDURE The patient arrived to the procedure lab. The risks and benefits of the procedure as well as a full d escription of our services here and current unavailability of surgical backup were fully explained to the patient and/or their significant other prior to the catheterization. The Timeout was completed, verifying the correct patient and procedure. The patient's procedural site was prepped and draped in the usual fashion. Local anesthetic was given subcutaneously to right groin region with Lidocaine 2%. Using a modified Seldinger technique, arterial access was obtained via the right femoral artery, a 4 Fr sheath was inserted Venous access was obtained via the right femoral vein, a 7Fr sheath was insert ed. A 7Fr thermal dilution catheter was inserted and right heart pressures were recorded, it was then advanced to PA position for cardiac outputs. Thermal dilution cardiac outputs were then recorded. O2 saturations were then obtained. Left Ventriculography was performed in GONZÁLES projection using a 4 Fr. Pigtail catheter. LV to AO pullback pressures were then recorded. Simultaneous pressure s were then recorded. The Thermal dilution catheter was then removed. Ascending (root) aorta selectiv e angiography was then performed in single view. Ascending (root) aorta selective angiography was the n performed in single view. Left Coronary Artery selective angiography was performed in multiple view s using a 4 Fr. JL5 catheter. Right Coronary Artery selective angiography was then performed in multi ple views using a 4 Fr. 3DRC catheter.The arterial sheath was pulled and manual compression applied u ntil hemostasis is achieved.. The venous sheath was then pulled and manual compression applied until hemostasis achieved CORONARY ANGIOGRAPHY DOMINANCE: Right Dominant LEFT HEART ASSESSMENT Left Ventricular Ejection Fraction: by LV Gram 65 % Normal LV wall motion Normal Left Ventricular systolic function LVEDP: 10 mmHg Normal Left Ventricular End Diastolic Pressure RIGHT HEART ASSESSMENT Thermal CO: 6.11 Thermal CI: 3.04 Deepti CO: 5.94 Deepti CI: 2.96 PW: 8/8 6 PA: 27/5 17 RV: 27/0 5 RA: 4 1 PVR: 144 SVR: 1362 Right Heart pressures - normal LEFT MAIN: Angiographically normal LEFT ANTERIOR DESCENDING ARTERY: Angiographically normal CIRCUMFLEX ARTERY: Angiographically normal RIGHT CORONARY ARTERY: Angiographically normal VALVE FINDINGS: Aortic Valve Insufficiency: Grade 3 to 4 COMPLICATIONS No Complications PROCEDURE MEDICATIONS Versed 1 mg IV Oxygen: 0 L/min via nasal cannula SUMMARY OF HEMODYNAMIC DATA Time AIR REST ECG 08:27:56 RA 4/4 (1) SV 11:22:21 RV 27/0, 5 11:22:32 PW 8/8 (6) PV 11:23:17 PA 27/5 (17) PA 11:23:29 LV 157/-7, 10 11:27:41 LV 154/-9, 10 11:27:47 LV 161/-7, 13 11:28:14 PW 15/8 (9) 11:28:14 LV 137/-9, 10 11:28:33 RV 28/-1, 4 11:28:33 LV 166/-11, 12 11:28:40 RV 27/-1, 4 11:28:40 LV 173/-9, 18 11:30:13 LVp 163/-6, 11 11:30:18 AOp 174/61 (107) 11:30:23 AO 164/73 (105) SA 11:30:30 Type SV CO (l/m) CI (l/m/ HR Time AIR REST Thermal 91.20 6.11 3.04 67 08:27:56 Deepti 88.70 5.94 2.96 67 08:27:56 Label % O2 Pres/Loc Time AIR REST AO 94 PV 11:34:40 PA 70 PA 11:34:48 Signed By Jimi Yi MD On 02/10/2019 11:57:05 Jimi Yi MD
== END 2019-02-10 16:08 | disposition home or self-care (01) ==
LOC: CVS 02-11 09:01
PROVIDERS: Family Provider Internal Medicine; PCP Internal Medicine; Referring Provider Internal Medicine Cardiovascular Disease; Visit Provider Internal Medicine Cardiovascular Disease
DX: I35.1 Nonrheumatic aortic (valve) insufficiency (principal); I77.819 Aortic ectasia, unspecified site; I10 Essential (primary) hypertension; E78.5 Hyperlipidemia, unspecified; I44.0 Atrioventricular block, first degree; E66.9 Obesity, unspecified; Z68.31 Body mass index [BMI] 31.0-31.9, adult; Z87.19 Personal history of other diseases of the digestive system; Z79.82 Long term (current) use of aspirin; Z79.899 Other long term (current) drug therapy
CPT/HCPCS: 82803; 93312; 93320; 93325; 93460; 93567; 99152; 99153; J7040; Q9967; A4216; C1751; C1769; C1894

== ENCOUNTER → 2019-04-11 | Outpatient (CLI) | payer OTHER, SELFPAY ==
[2019-02-20 16:39] VITALS: BMI 31.1
[2019-04-11 13:42] LABS: Creatinine, Serum 0.79 mg/dL (0.55-1.02); EST Glomerular Filtration Rate 79 mL/min (>60); Est Glom Filt Rate - Afr Amer 96 mL/min (>60)
== END | disposition home or self-care (01) ==
LOC: LAB 12:39
PROVIDERS: Family Provider Internal Medicine; PCP Internal Medicine
DX: I71.2 Thoracic aortic aneurysm, without rupture (principal); I35.1 Nonrheumatic aortic (valve) insufficiency
CPT/HCPCS: 36415; 82565

== ENCOUNTER 2019-04-29 10:22 | Emergency (ER) | payer OTHER, SELFPAY ==
[2019-02-20 16:39] VITALS: BMI 31.1
[2019-04-29 10:23] VITALS: BP 182/82; PULSE 73; RESP 16; TEMP 36.7; O2SAT 98; BMI 29.7
--- NOTE | 2019-04-29 10:43 | RAD_ITS ---
STUDY: X-RAY CHEST REASON FOR EXAM: Female, 58 years old. Dizziness, hypertension TECHNIQUE: PA and lateral views of the chest. COMPARISON: 02/04/2019 FINDINGS: The lungs are clear and expanded. There is no demonstrated pleural abnormality. Normal size heart. Normal mediastinum and alexandre. Normal visualized pulmonary arteries. There is atherosclerotic tortuosity of the aortic arch and descending thoracic aorta. Normal visualized thoracic spine. Normal visualized ribs, clavicles, and shoulders. There is no demonstrated abnormality of the visualized soft tissue structures of the upper abdomen. RAD/Chest PA and Lateral IMPRESSION: Normal x-ray examination of the chest. Electronically Signed: Jose Toth MD at 12:03 EDT Tel , Service support ,
--- NOTE | 2019-04-29 10:43 | EKG12_ITS ---
Test Reason : DIZZINESS Blood Pressure : / mmHG Vent. Rate : 059 BPM Atrial Rate : 059 BPM P-R Int : 190 ms QRS Dur : 088 ms QT Int : 450 ms P-R-T Axes : 028 -10 034 degrees QTc Int : 445 ms Sinus bradycardia Voltage criteria for left ventricular hypertrophy Abnormal ECG Confirmed by KYLAH MARTINEZ, SAHRA ([id number]), news copy editor KELY BRADFORD ([id number]) on 05/02/2019 1:54:59 PM Referred By: EROS Confirmed By:JUHI MONTERO MD
[2019-04-29 11:00] VITALS: BP 150/105; PULSE 62; RESP 18; O2SAT 95
[2019-04-29] MEDS: Meclizine HCl 25 MG Tablet PO (11:10)
[2019-04-29 11:11] LABS: Absolute Lymphocyte Count 2.16 X10^3/uL (0.83-4.51); Absolute Neutrophil Count 4.3 X10^3/uL (2.0-7.7); Basophil# 0.05 X10^3/uL; Basophil% 0.7 % (0-1); Eosinophil# 0.08 X10^3/uL; Eosinophils% 1.1 % (0-5); Hematocrit 42.8 % (37-47); Lymphocyte # 2.16 X10^3/ul (4.0); Lymphocyte % 30.3 % (19-41); Mean Corp Hgb Conc 32.7 g/dL (32-36); Mean Corpuscular Hgb 29.8 pg (27.0-32.0); Mean Corpuscular Volume 91.1 fL (81-99); Mean Platelet Vol. 9.6 fl (6.2-12.0); Monocyte# 0.54 X10^3/uL; Monocyte% 7.6 % (0-10); NRBC Flagged by Analyzer 0 % (0-5); Neutrophil # 4.27 X10^3/uL (2.7-7.7); Neutrophil % 59.9 % (47-70); Platelet Count 354 K/mm3 (150-450); RBC Distribution Width CV 13.2 % (11.6-14.6); RBC Distribution Width SD 43.7 fl (35.1-43.9); White Blood Count 7.1 K/mm3 (4.4-11.0)
[2019-04-29 11:24] LABS: Anion Gap 5 (5-15); BUN 10 mg/dL (7-18); BUN/Creat Ratio 12.5 RATIO (10-20); Calcium,Total 8.8 mg/dL (8.5-10.1); Chloride 108 mmol/L (98-107); EST Glomerular Filtration Rate 78 mL/min (>60); Est Glom Filt Rate - Afr Amer 94 mL/min (>60); Estimated Creatinine Clearance 72.72 ml/min; Glucose 109 mg/dL (74-106); Sodium Level 140 mmol/L (136-145)
--- NOTE | 2019-04-29 11:32 | ED.VIS.GEN ---
History of Present Illness Chief Complaint: Dizziness Informant: Patient Onset: Yesterday Narrative: Presents to ED being referred from nursing line from Dr. Yi's office for which she reports just dizzy spinning sensation since last night along with lightheaded symptoms. States has 10 minutes of palpitations last evening. History of aortic insufficiency with plan valve repair with root replacement this July by Dr. Montes at [facility]. Denies any syncopal episodes. Currently dizzy symptoms are subsiding states half of what it was last night. Patient currently on Benicar 10 mg. Reports had a heart cath February [address] Yi with confirmed insufficiency with recommendations. No recent upper respiratory illness. No recent vomiting or diarrhea. States blood pressure was lower systolic 107's at home on her watch. Denies any leg swelling, orthopnea, PND. Prior similar symptoms: No Past Medical History - Allergies and Home Meds Allergies/Adverse Reactions: Allergies hydrochlorothiazide Adverse Reaction (Severe, Verified 04/29/19 10:26) SEVERE HYPOKALEMIA, hospitalized for it bee venom protein (honey bee) Adverse Reaction (Verified 04/29/19 10:26) Swelling Primary Care Physician: Sailaja Elizalde MD [Primary Care Provider] - Surgical History: appendectomy, hysterectomy, - Smoking Status: Former smoker - Family History Maternal Family History: Family History (Last Reviewed 02/20/19 @ 15:58 by Jina Willis) Uncle Diabetes Aunt Diabetes Family History: Reports: No pertinent history Paternal Family History: Family History (Last Reviewed 02/20/19 @ 15:58 by Jina Willis) Uncle Diabetes Aunt Diabetes Family History: Reports: No pertinent history Review of Systems General: Denies: Chills, Fever, Sweats Eyes: Denies: Visual changes - bilaterally, Diplopia ENT: Denies: Rhinorrhea, Sore throat Cardiovascular: Denies: Chest pain, Palpitations Respiratory: Denies: Dyspnea, Cough, Dyspnea on exertion Gastrointestinal: Denies: Abdominal pain, Nausea, Vomiting, Diarrhea, Melena, Hematochezia Genitourinary: Denies: Dysuria, Hematuria, Frequency Musculoskeletal: Denies: Back pain, Extremity Pain Skin: Denies: Rash, Wounds Neurological: Denies: Headache, Weakness, Numbness Physical Exam Vital Signs/Narrative: Vital Signs Temp Pulse Resp BP Pulse Ox 04/29/19 11:00 62 18 150/105 H 95 04/29/19 10:23 98.1 F 73 16 182/82 H 98 Inital Vital Signs reviewed: Yes General: Well nourished, Well developed, No Acute Distress Head: Normocephalic, Atraumatic Eyes: Perrl, EOMI, - - Patient no nystagmus ENT: Moist mucous membranes, No rhinorrhea Neck: Supple, Nontender Cardiovascular: Regular rate, Regular rhythm, Murmur Respiratory: No distress, CTA bilaterally, Chest nontender Abdomen: Soft, Nontender, Nondistended, Normal bowel sounds Back: Nontender, Normal Inspection Extremities: Nontender, No edema Skin: Normal color, No rash Neurological: Alert, Oriented x3, Cranial nerves II-XII grossly intact, Normal Strength, Normal Sensation, - - Melita-Hallpike negative bilaterally. Psychological: Normal affect, Normal Mood Diagnostic/Tx/Re-eval Clinical Impression(s) from Imaging Studies Chest X-Ray 04/29/19 10:43 IMPRESSION: Normal x-ray examination of the chest. Electronically Signed: Jose Toth MD at 12:03 EDT Tel , Service support , Abnormal Lab Results 04/29/19 04/29/19 04/29/19 10:55 10:55 10:55 WBC 7.1 RBC 4.70 Hgb 14.0 Hct 42.8 MCV 91.1 MCH 29.8 MCHC 32.7 RDW Std Deviation 43.7 RDW Coeff of Bhavya 13.2 Plt Count 354 MPV 9.6 Immature Gran % (Auto) 0.400 Neut % (Auto) 59.9 Lymph % (Auto) 30.3 [place] % (Auto) 7.6 Eos % (Auto) 1.1 Baso % (Auto) 0.7 Absolute Neuts (auto) 4.3 Absolute Lymphs (auto) 2.16 Nucleated RBC % 0 Sodium 140 Potassium 4.0 Chloride 108 H Carbon Dioxide 27.0 Anion Gap 5 BUN 10 Creatinine 0.80 Estim Creat Clear Calc 72.72 Est GFR (MDRD) Af Amer 94 Est GFR (MDRD) Non-Af 78 BUN/Creatinine Ratio 12.5 Glucose 109 H Calcium 8.8 B-Natriuretic Peptide 51.8 Patient EKG no acute changes. Present with both lightheaded symptoms and vertigo. She is given meclizine with improvement of symptoms. Labs including BMP normal. Her monitor her blood pressure went down to 150s, was given 500 cc bolus with her known history of both aortic stenosis and aortic insufficiency. Blood pressure went up to 160 systolic. Patient was ambulated, had slight lightheaded symptoms upon standing and then a couple times while walking per nursing. 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 Yi, feels patient is stable for discharge with outpatient follow-up in the office within a week. Orthostatics were obtained per discussion and was negative. She will continue her Benicar at 10 mg at night. Patient will pick remover a blood pressure cuff and check her blood pressures prior to her medication and not use her watch. Discussed if low and symptomatic to hold this medication. She will be treated with meclizine as needed. Return if any worsening symptoms. All questions were answered. - EKG Initial EKG Interpretation: Sinus Rhythm - Sinus rate of 59, no ST changes. Isolated T wave inversion in leads III. ED Disposition - Plan for ED Patient: Disposition: Home or Assisted Living Diagnosis: Vertigo, Near syncope Instructions: VERTIGO, Unspecified, NEAR SYNCOPE, Unknown Referrals: Sailaja Elizalde MD [Primary Care Provider] - Jimi Yi MD [STAFF PHYSICIAN] - 5-7 Days Additional Instructions: Use medication as needed for spinning sensations. 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 If systolic blood pressure less than 140, may want to hold Benicar especially if lightheaded. Keep a record of your blood pressures. Follow-up with Dr. Yi in 1 week's time.
[2019-04-29 11:40] VITALS: BP 151/76; PULSE 67; RESP 14; O2SAT 95
[2019-04-29 11:43] LABS: BNP,B-Type NATRIURETIC PEPTIDE 51.8 pg/mL (0-100)
--- NOTE | 2019-04-29 12:50 | ED.RN ---
ASSISTED PT TO AMBULATE IN THE [facility]. PT C/O LIGHTHEADED AND THROBBING HEAD.
[2019-04-29 12:59] VITALS: BP 178/92; BP 179/79; BP 183/86; PULSE 59; PULSE 61; PULSE 65
--- NOTE | 2019-04-29 13:17 | ED.DCSUM_ITS ---
History of Present Illness Chief Complaint: Dizziness Informant: Patient Past Medical History - Allergies and Home Meds Allergies/Adverse Reactions: Allergies hydrochlorothiazide Adverse Reaction (Severe, Verified 04/29/19 10:26) SEVERE HYPOKALEMIA, hospitalized for it bee venom protein (honey bee) Adverse Reaction (Verified 04/29/19 10:26) Swelling Primary Care Physician: Jimi Yi MD [STAFF PHYSICIAN] - 5-7 Days Sailaja Elizalde MD [Primary Care Provider] - Surgical History: appendectomy, hysterectomy, - Smoking Status: Former smoker - Family History Maternal Family History: Family History (Last Reviewed 02/20/19 @ 15:58 by Jina Willis) Uncle Diabetes Aunt Diabetes Family History: Reports: No pertinent history Paternal Family History: Family History (Last Reviewed 02/20/19 @ 15:58 by Jina Willis) Uncle Diabetes Aunt Diabetes Family History: Reports: No pertinent history Physical Exam Vital Signs/Narrative: Vital Signs Temp Pulse Pulse Pulse Pulse Resp BP 04/29/19 12:59 59 L 61 65 04/29/19 11:40 67 14 151/76 H 04/29/19 11:00 62 18 150/105 H 04/29/19 10:23 98.1 F 73 16 182/82 H BP BP BP Pulse Ox 04/29/19 12:59 179/79 H 183/86 H 178/92 H 04/29/19 11:40 95 04/29/19 11:00 95 04/29/19 10:23 98 ED Disposition - Plan for ED Patient: Disposition: Home or Assisted Living Diagnosis: Vertigo, Near syncope Instructions: NEAR SYNCOPE, Unknown, VERTIGO, Unspecified Prescriptions: Meclizine HCl [Antivert] 25 mg PO TID PRN PRN #12 tablet PRN Reason: Dizziness Referrals: Jimi Yi MD [STAFF PHYSICIAN] - 5-7 Days Sailaja Elizalde MD [Primary Care Provider] - Additional Instructions: Use medication as needed for spinning sensations. 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 If systolic blood pressure less than 140, may want to hold Benicar especially if lightheaded. Keep a record of your blood pressures. Follow-up with Dr. Yi in 1 week's time.
[2019-04-29 13:27] VITALS: PULSE 67; RESP 18; O2SAT 95
== END 2019-04-29 13:28 | disposition home or self-care (01) ==
PROVIDERS: Emergency Provider Emergency Medicine; Family Provider Internal Medicine; PCP Internal Medicine
DX: R42 Dizziness and giddiness (principal); R55 Syncope and collapse; I35.2 Nonrheumatic aortic (valve) stenosis with insufficiency; I10 Essential (primary) hypertension; Z79.82 Long term (current) use of aspirin; Z79.899 Other long term (current) drug therapy; Z87.891 Personal history of nicotine dependence
CPT/HCPCS: 71046; 80048; 83880; 85025; 93005; 96360; 99285; J7040; A4216

== ENCOUNTER 2019-07-30 14:08 | Inpatient (IN) | payer OTHER, SELFPAY ==
[2019-07-30 14:09] VITALS: BP 145/83; PULSE 89; RESP 16; TEMP 36.7; O2SAT 98; BMI 31.6
--- NOTE | 2019-07-30 14:31 | CT_ITS ---
STUDY: CT ABDOMEN AND PELVIS WITHOUT CONTRAST REASON FOR EXAM: Female, 58 years old. Diffuse abdominal pain and nausea. History of prior small bowel obstruction. RADIATION DOSAGE (If Supplied By Facility): CTDIvol = ( 17.09 ) mGy, DLP = ( 1053.24 ) mGycm TECHNIQUE: Transaxial images were obtained from the dome of the diaphragm to the symphysis pubis without oral contrast, and without intravenous contrast. Sagittal and coronal images were reconstructed. Individualized dose optimization techniques were used for this CT. COMPARISON: Comparison is made with prior study dated June 19, 2018. FINDINGS: The visualized lung bases are unremarkable. The visualized portions of the heart are within normal limits. There is decreased attenuation of the liver consistent with steatosis. Normal gallbladder and extrahepatic biliary system. Normal spleen. Normal pancreas. Normal bilateral adrenal glands. Normal right kidney. Normal left kidney. Fluid distention of the stomach. Mildly dilated fluid-filled small bowel loops. Moderate amount of fecal material is seen in the colon. This may represent early small bowel obstruction. Follow-up is recommended. There are multiple colonic diverticula consistent with diverticulosis. The appendix is visualized and appears normal. There is scattered atherosclerotic calcification of the abdominal aorta, without a demonstrated aneurysm. Normal inferior vena cava. Normal retroperitoneum. Normal urinary bladder. There is absence of the uterus consistent with a prior hysterectomy. Segments of prior anterior abdominal wall surgery. Mild degree of disc space narrowing at the L5-S1 level. CT/Abdomen/Pelvis W IV Cont ONLY IMPRESSION: Mildly dilated fluid distended small bowel loops. Fecal material is seen throughout the colon in a decompressed colon. Early small bowel obstruction should be ruled out. Follow up is recommended. Electronically Signed: Duy Coppola, at 15:43 EST , Service support ,
--- NOTE | 2019-07-30 14:32 | ED.DCSUM_ITS ---
History of Present Illness Chief Complaint: Abd Pain Informant: Patient - Abdominal Pain/Flank Pain Onset: Hours - 5-6 Context: Gradual Onset Timing: Continuous Quality: Aching, Burning Location: Diffuse Current Severity: Moderate Maximum Severity: Moderate Worsened by: Nothing Relieved by: Nothing - Nausea/Vomiting/Emesis GI Symptom: Nausea. Negative for: Vomiting - Diarrhea/Melena/Hematochezia GI Symptom: Negative for: Diarrhea, Melena, Hematochezia Associated Symptoms: Negative for: Dysuria, Frequency, Hematuria, Urgency Narrative: Started having symptoms earlier, she had a normal fairly good sized bowel movement earlier this morning prior to the onset of symptoms but not just prior. Symptoms have progressed, distention and pain along with nausea she has not vomited. No urinary issues. She has had a small bowel obstruction in the past and states she has some valvular issues in her heart that need repaired but not emergently, she was diagnosed with those earlier this year. - Past Medical History (1) First degree AV block Status: Chronic (2) Hyperlipidemia Status: Chronic (3) Hypertension Status: Chronic (4) Lichen sclerosus et atrophicus Status: Chronic Comment: clobetasol, discussed usage intructions, recommend derm evaluation due to persistence despite clobetasol therapy (5) Nonrheumatic aortic valve insufficiency Status: Chronic Comment: Mild to Moderate (1-2+) per echo 01/24/2018, RVSP 27mmhg. EF 65%. Past Medical History - Allergies and Home Meds Allergies/Adverse Reactions: Allergies hydrochlorothiazide Adverse Reaction (Severe, Verified 07/30/19 14:11) SEVERE HYPOKALEMIA, hospitalized for it bee venom protein (honey bee) Adverse Reaction (Verified 07/30/19 14:11) Swelling Primary Care Physician: Sailaja Elizalde MD [Primary Care Provider] - Surgical History: appendectomy, hysterectomy, - Lives: Spouse/ Significant Other Smoking Status: Former smoker - Family History Maternal Family History: Family History (Last Reviewed 02/20/19 @ 15:58 by Jina Willis) Uncle Diabetes Aunt Diabetes Family History: Reports: No pertinent history Paternal Family History: Family History (Last Reviewed 02/20/19 @ 15:58 by Jina Willis) Uncle Diabetes Aunt Diabetes Family History: Reports: No pertinent history Review of Systems General: Denies: Chills, Fever, Sweats Eyes: Denies: Visual changes - bilaterally, Diplopia ENT: Denies: Rhinorrhea, Sore throat Cardiovascular: Denies: Chest pain, Palpitations Respiratory: Denies: Dyspnea, Cough, Dyspnea on exertion Gastrointestinal: Reports: Abdominal pain, Nausea. Denies: Vomiting, Diarrhea, Melena, Hematochezia Genitourinary: Denies: Dysuria, Hematuria, Frequency Musculoskeletal: Reports: Back pain. Denies: Extremity Pain Skin: Denies: Rash, Wounds Neurological: Denies: Headache, Weakness, Numbness Physical Exam Vital Signs/Narrative: Vital Signs Temp Pulse Resp BP Pulse Ox 07/30/19 14:09 98.0 F 89 16 145/83 H 98 Inital Vital Signs reviewed: Yes General: Well nourished, Well developed, No Acute Distress Head: Normocephalic, Atraumatic Eyes: Perrl, EOMI ENT: Moist mucous membranes, No rhinorrhea Neck: Supple, Nontender Cardiovascular: Regular rate, Regular rhythm, No murmurs Respiratory: No distress, CTA bilaterally, Chest nontender Abdomen: Soft, No masses, Tender - diffusely moderately tender; distended., Hypoactive bowel sounds. Negative for: Guarding, Rebound tenderness Back: Nontender, Normal Inspection. Negative for: CVA tenderness Extremities: Nontender, No edema. Negative for: Calf Tenderness Skin: Normal color, No rash, No Trauma Neurological: Alert, Oriented x3, Cranial nerves II-XII grossly intact, Normal Strength, Normal Sensation Psychological: Normal affect, Normal Mood Diagnostic/Tx/Re-eval Impressions Abdomen/Pelvis CT 07/30/19 14:31 IMPRESSION: Mildly dilated fluid distended small bowel loops. Fecal material is seen throughout the colon in a decompressed colon. Early small bowel obstruction should be ruled out. Follow up is recommended. Electronically Signed: Duy Coppola, at 15:43 EST , Service support , 07/30/19 14:31 Abdomen/Pelvis W IV Cont ONLY [CT] Stat Laboratory Results 07/30/19 07/30/19 07/30/19 14:40 14:40 15:25 WBC 10.3 RBC 4.97 Hgb 14.8 Hct 44.8 MCV 90.1 MCH 29.8 MCHC 33.0 RDW Std Deviation 42.8 RDW Coeff of Bhavya 13.1 Plt Count 389 MPV 9.5 Immature Gran % (Auto) 0.800 Neut % (Auto) 71.0 H Lymph % (Auto) 19.8 [place] % (Auto) 7.1 Eos % (Auto) 0.7 Baso % (Auto) 0.6 Absolute Neuts (auto) 7.3 Absolute Lymphs (auto) 2.05 Nucleated RBC % 0 Sodium 139 Potassium 3.7 Chloride 103 Carbon Dioxide 29.0 Anion Gap 7 BUN 15 Creatinine 0.92 Estim Creat Clear Calc 63.24 Est GFR (MDRD) Af Amer 80 Est GFR (MDRD) Non-Af 66 BUN/Creatinine Ratio 16.4 Glucose 110 H Calcium 9.4 Total Bilirubin 0.40 AST 23 ALT 41 Alkaline Phosphatase 98 Total Protein 8.6 H Albumin 4.3 Globulin 4.3 H Albumin/Globulin Ratio 1.0 Lipase 103 Urine Color Yellow Urine Clarity Clear Urine pH 5.0 Ur Specific [place] 1.025 Urine Protein 15 H Urine Glucose (UA) Normal Urine Ketones 5 H Urine Occult Blood 25 H Urine Nitrite Negative Urine Bilirubin Negative Urine Urobilinogen Normal Ur Leukocyte Esterase 25 H Urine RBC 0 SEEN Urine WBC 0 SEEN Ur Squamous Epith Cells 0-5 SEEN Other Crystals Urine Bacteria RARE Urine Mucus 0 SEEN - Medical Decision Making CT consistent with early small bowel obstruction which is consistent with her symptoms and exam. She does not have symptoms of gastroenteritis, and she has a quiet abdomen so I do not think the CT findings indicate ileus. Discussed with Drs. Shrestah and Cam, will admit her to medicine with an NG tube for surgery consultation. ED Disposition - Plan for ED Patient: Disposition: [facility] Diagnosis: Small bowel obstruction Referrals: Sailaja Elizalde MD [Primary Care Provider] -
[2019-07-30] MEDS: 0.9% Normal Saline 1,000 ML 1000 ML IV (14:53)
[2019-07-30] MEDS: Ondansetron 4 MG/2 ML Vial IV ×2 (14:53→21:24)
[2019-07-30] MEDS: Morphine 4 MG/ML Syringe IV ×2 (14:53→17:15)
[2019-07-30 14:57] LABS: Absolute Lymphocyte Count 2.05 X10^3/uL (0.83-4.51); Absolute Neutrophil Count 7.3 X10^3/uL (2.0-7.7); Basophil# 0.06 X10^3/uL; Basophil% 0.6 % (0-1); Eosinophil# 0.07 X10^3/uL; Eosinophils% 0.7 % (0-5); Hematocrit 44.8 % (37-47); Hemoglobin 14.8 g/dL (12.0-15.0); Lymphocyte # 2.05 X10^3/ul (4.0); Lymphocyte % 19.8 % (19-41); Mean Corpuscular Hgb 29.8 pg (27.0-32.0); Mean Corpuscular Volume 90.1 fL (81-99); Mean Platelet Vol. 9.5 fl (6.2-12.0); Monocyte# 0.73 X10^3/uL; Monocyte% 7.1 % (0-10); NRBC Flagged by Analyzer 0 % (0-5); Neutrophil # 7.34 X10^3/uL (2.7-7.7); Platelet Count 389 K/mm3 (150-450); RBC Distribution Width CV 13.1 % (11.6-14.6); RBC Distribution Width SD 42.8 fl (35.1-43.9); Red Blood Count 4.97 M/mm3 (4.2-5.4); White Blood Count 10.3 K/mm3 (4.4-11.0)
[2019-07-30 15:12] LABS: AST(SGOT) 23 U/L (15-37); Alanine Aminotransfer ALT/SGPT 41 U/L (13-56); Albumin, Serum 4.3 g/dL (3.2-5.0); Alkaline Phosphatase 98 U/L (45-117); Anion Gap 7 (5-15); BUN 15 mg/dL (7-18); BUN/Creat Ratio 16.4 RATIO (10-20); Calcium,Total 9.4 mg/dL (8.5-10.1); Chloride 103 mmol/L (98-107); Creatinine, Serum 0.92 mg/dL (0.55-1.02); EST Glomerular Filtration Rate 66 mL/min (>60); Est Glom Filt Rate - Afr Amer 80 mL/min (>60); Estimated Creatinine Clearance 63.24 ml/min; Globulin 4.3 g/dL (2.2-4.2); Glucose 110 mg/dL (74-106); Lipase 103 U/L (73-393); Potassium 3.7 mmol/L (3.5-5.1); Protein, Total 8.6 g/dL (6.4-8.2); Sodium Level 139 mmol/L (136-145)
[2019-07-30 15:31] LABS: Mucous, Urine 0 SEEN /hpf (<or=2+); Red Blood Cells-Urine 0 SEEN /hpf (0-5); White Blood Cells 0 SEEN /hpf (0-5)
[2019-07-30 15:36] LABS: Color, Urine Yellow (Yellow); Glucose, Dipstick Normal (Normal); Ketone-Dipstick 5 mg/dl (Negative); Leukocyte Esterase-Dipstick 25 /ul (Negative); Nitrite-Dipstick Negative (Negative); Occult Blood-Urine 25 /ul (Negative); Protein-Dipstick 15 mg/dl (Negative); Specific Gravity, Urine 1.025 (1.002-1.030); Urine Bilirubin Dipstick Negative (Negative); Urine Clarity Clear (Clear); Urine Urobilinogen Normal (Normal)
[2019-07-30 15:49] LABS: Bacteria RARE /hpf (None Seen); Squamous Epithelial Cells - UA 0-5 SEEN /hpf (5-10)
[2019-07-30] MEDS: Lidocaine 2% Jelly 1 APPLIC Tube 3 APPLIC TOPICAL (17:15)
[2019-07-30] MEDS: Oxymetazoline 0.05% 1 SPRAY SPRAY.BTL 2 SPRAY NASAL (17:15)
--- NOTE | 2019-07-30 17:19 | RAD_ITS ---
STUDY: X-RAY - ABDOMEN/PELVIS REASON FOR EXAM: Female, 58 years old. Enteric tube placement TECHNIQUE: Single AP view of the abdomen / pelvis. COMPARISON: None. FINDINGS: Enteric tube extends in the left upper abdomen/stomach. Much of the abdomen is excluded. RAD/Abdomen Single View (Portable) IMPRESSION: Satisfactory position of enteric tube. Electronically Signed: Jhoan Beltran MD ([place]) at 17:33 EST , Service support ,
--- NOTE | 2019-07-30 17:25 | PCM.CONS.GEN ---
Problem List (1) Small bowel obstruction Status: Acute Reason for Consult Date of Consultation: 07/30/19 History of Present Illness: The patient is a 58 year old F who presents to the emergency room with recurrent episode of significant abdominal pain distention nausea vomiting. She has had multiple previous small bowel obstructions. The vast majority of these have resolved with nonoperative management. 2011 because of non-resolution performed a laparoscopy and had to convert to an open procedure due to dense adhesions involving the small bowel. 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 Her most recent hospitalization was 2014 where she resolved with nonoperative management. Her abdominal operations include the malrotation as a she has had a previous appendectomy tubal ligation total abdominal hysterectomy and is noted the laparoscopy/open laparotomy for small bowel obstruction. She has been received doing well. She has been diagnosed as having aortic valvular issues and is to be seen in 2 days at [facility] for consideration of heart catheterization and further work-up for possible aortic valvular replacement or repair. She denies any change in her dietary habits. She has been painful since 10:00 this morning. She is complaining of a right mid abdominal pain. Her laboratory demonstrates a white count of 10.3 hemoglobin 14.8 hematocrit 44.8 platelet count 389,000 with 71% neutrophils BUN is 15 creatinine 0.92. Liver function tests essentially normal. A CT scan was obtained with IV only contrast no oral contrast. There is a large amount of food material within the stomach and small bowel throughout there is some air and stool in the colon. Early small bowel obstruction was felt to been identified. Patient has a chronic significant anxiety syndrome. 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 She did allow an NG tube to be placed in the emergency room today. It has been recommended the patient in the past that she utilize MiraLAX on a more routine basis. It is been felt that she has had food bezoars complicating her bowel obstruction picture. Past Medical History Past Medical History (Chronic Problems): Chronic Problems (Last Reviewed 02/20/19 @ 15:58 by Jina Willis) History of right and left heart catheterization (Chronic 02/10/19) Normal coronary arteries; Normal LV size, wall motion,and systolic function; Aortic Valve Insufficiency Moderate to severe; The patient has normal pulmonary hemodynamics. Aortic Root dilated. RECOMMENDATIONS: Surgery consult for Valve Replacement and aortic root surgery Pt to notify Dr Yi regarding hospital to refer for AVR and Aortic root replacement. Abnormal EKG (Chronic) Prolonged QT interval (Chronic) First degree AV block (Chronic) Obesity (Chronic) Hyperlipidemia (Chronic) Lichen sclerosus et atrophicus (Chronic) clobetasol, discussed usage intructions, recommend derm evaluation due to persistence despite clobetasol therapy Nonrheumatic aortic valve insufficiency (Chronic) Mild to Moderate (1-2+) per echo 01/24/2018, RVSP 27mmhg. EF 65%. Hypertension (Chronic) Medical History: Medical History (Last Reviewed 02/20/19 @ 15:58 by Jina Willis) Chest pain (Acute) R07.9 Fatigue (Acute) R53.83 Dyspnea on exertion (Acute) R06.09 Abnormal EKG (Chronic) R94.31 Prolonged QT interval (Chronic) R94.31 First degree AV block (Chronic) I44.0 Nonrheumatic aortic valve insufficiency (Chronic) I35.1 Mild to Moderate (1-2+) per echo 01/24/2018, RVSP 27mmhg. EF 65%. Hypertension (Chronic) I10 Obesity E66.9 SBO (small bowel obstruction) K56.609 Allergies hydrochlorothiazide Adverse Reaction (Severe, Verified 07/30/19 14:11) SEVERE HYPOKALEMIA, hospitalized for it bee venom protein (honey bee) Adverse Reaction (Verified 07/30/19 14:11) Swelling Home Medications: Ambulatory Orders Medication Instructions Recorded Olmesartan Medoxomil [Benicar] 10 mg PO DAILY 07/30/19 Potassium Chloride [K-Dur] 20 meq PO DAILY 07/30/19 Surgical History: Surgical History (Last Updated 02/21/19 @ 03:23 by Katya Marshall MD) History of right and left heart catheterization (Chronic) Onset Date: 02/10/19 Z98.890 Normal coronary arteries; Normal LV size, wall motion,and systolic function; Aortic Valve Insufficiency Moderate to severe; The patient has normal pulmonary hemodynamics. Aortic Root dilated. RECOMMENDATIONS: Surgery consult for Valve Replacement and aortic root surgery Pt to notify Dr Yi regarding hospital to refer for AVR and Aortic root replacement. 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 Lives: Spouse/ Significant Other Smoking Status: Never smoker - *Family History Maternal Family History: Family History (Last Reviewed 02/20/19 @ 15:58 by Jina Willis) Uncle Diabetes Aunt Diabetes History Items: No pertinent history Paternal Family History: Family History (Last Reviewed 02/20/19 @ 15:58 by Jina Willis) Uncle Diabetes Aunt Diabetes History Items: No pertinent history Review of Systems Constitutional: Denies: Anorexia HEENT: Denies: Difficulty Swallowing Cardiovascular: Reports: - - Dyspnea on exertion Gastrointestinal: Reports: Abdominal Pain, - - Bowel movement earlier today with no bright red blood per rectum or melena. Denies: Diarrhea Psychiatric: Reports: Anxiety Endocrine: Reports: - - Because of the aortic valve issue the patient was not able to continue her spinning classes where she had been losing weight. She has had a recent weight regain Patient Problems: Active and Suspected Problems (Last Reviewed 02/20/19 @ 15:58 by Jina Willis) Small bowel obstruction (Acute) - Physical Exam Vitals/I&O's: Vital Signs Temp Pulse Resp BP Pulse Ox 98.0 F 89 16 145/83 H 98 07/30/19 14:09 07/30/19 14:09 07/30/19 14:09 07/30/19 14:09 07/30/19 14:09 Oxygen Delivery Method Room Air Weight: 201 lb 11.567 oz Body Mass Index (BMI) 31.6 Intake and Output for Last 24 Hours 07/28/19 07/29/19 07/30/19 23:59 23:59 23:59 Intake Total 1000 / 1000 Balance 1000 / 1000 General: Alert, Oriented x3, Cooperative, No apparent distress HEENT: Atraumatic Oral: Moist Mucosa Lungs: Clear to auscultation, Normal air movement Cardiovascular: Regular rate, Regular Rhythm Abdomen: Soft, Bowel Sounds Not Present, Tender, - - Well-healed vertical abdominal incisions to the right of the umbilicus Skin: No rashes Neurological: - - Cognition intact Psych/Mental Status: Anxious Laboratory Results 07/30/19 14:40: WBC 10.3, RBC 4.97, Hgb 14.8, Hct 44.8, MCV 90.1, MCH 29.8, MCHC 33.0, RDW Std Deviation 42.8, RDW Coeff of Bhavya 13.1, Plt Count 389, MPV 9.5, Immature Gran % (Auto) 0.800, Neut % (Auto) 71.0 H, Lymph % (Auto) 19.8, [place] % (Auto) 7.1, Eos % (Auto) 0.7, Baso % (Auto) 0.6, Absolute Neuts (auto) 7.3, Absolute Lymphs (auto) 2.05, Nucleated RBC % 0 07/30/19 14:40: Sodium 139, Potassium 3.7, Chloride 103, Carbon Dioxide 29.0, Anion Gap 7, BUN 15, Creatinine 0.92, Estim Creat Clear Calc 63.24, Est GFR (MDRD) Af Amer 80, Est GFR (MDRD) Non-Af 66, BUN/Creatinine Ratio 16.4, Glucose 110 H, Calcium 9.4, Total Bilirubin 0.40, AST 23, ALT 41, Alkaline Phosphatase 98, Total Protein 8.6 H, Albumin 4.3, Globulin 4.3 H, Albumin/Globulin Ratio 1.0, Lipase 103 07/30/19 15:25: Urine Color Yellow, Urine Clarity Clear, Urine pH 5.0, Ur Specific [place] 1.025, Urine Protein 15 H, Urine Glucose (UA) Normal, Urine Ketones 5 H, Urine Occult Blood 25 H, Urine Nitrite Negative, Urine Bilirubin Negative, Urine Urobilinogen Normal, Ur Leukocyte Esterase 25 H, Urine RBC 0 SEEN, Urine WBC 0 SEEN, Ur Squamous Epith Cells 0-5 SEEN, Other Crystals , Urine Bacteria RARE, Urine Mucus 0 SEEN Assessment/Plan All Active Problems (Last Reviewed 02/20/19 @ 15:58 by Jina Willis) Small bowel obstruction (Acute) Acute stress reaction (Acute) Chest pain (Acute) Fatigue (Acute) Dyspnea on exertion (Acute) Upper respiratory infection (Acute) Segmental and somatic dysfunction of pelvic region (Acute) Segmental and somatic dysfunction of lumbar region (Acute) 58-year-old female with findings very much consistent with recurrent small bowel obstruction. This is likely in large part due to inspissated succus entericus/food bezoar obstructive issues perhaps with the addition of adhesive disease. By her report she has significant aortic valvular disease which likely would preclude surgical intervention. I do not believe that she has a surgical abdomen at this time. NG tube to suction is a good alternative. Pending her progress tomorrow might consider administering Gastrografin per the NG tube in an effort to facilitate resolution. She has had an opportunity to ask and have questions answered. I appreciate the ongoing opportunity of assisting with her surgical care and will follow with you. Lenny Shrestha M.D., F.A.C.S.
--- NOTE | 2019-07-30 17:42 | PCM.HP.STD ---
Problem List (1) Small bowel obstruction Status: Acute (2) Acute stress reaction Status: Chronic Comment: celexa ordered, encouraged counseling, undergoing open heart surgery soon. (3) History of right and left heart catheterization Status: Chronic Comment: Normal coronary arteries; Normal LV size, wall motion,and systolic function; Aortic Valve Insufficiency Moderate to severe; The patient has normal pulmonary hemodynamics. Aortic Root dilated. RECOMMENDATIONS: Surgery consult for Valve Replacement and aortic root surgery Pt to notify Dr Yi regarding hospital to refer for AVR and Aortic root replacement. (4) Chest pain Status: Inactive (5) Fatigue Status: Acute (6) Dyspnea on exertion Status: Acute (7) Abnormal EKG Status: Chronic (8) Prolonged QT interval Status: Chronic (9) First degree AV block Status: Chronic (10) Upper respiratory infection Status: Acute (11) Segmental and somatic dysfunction of pelvic region Status: Acute (12) Segmental and somatic dysfunction of lumbar region Status: Acute (13) Obesity Status: Chronic (14) Hyperlipidemia Status: Chronic (15) Lichen sclerosus et atrophicus Status: Chronic Comment: clobetasol, discussed usage intructions, recommend derm evaluation due to persistence despite clobetasol therapy (16) Nonrheumatic aortic valve insufficiency Status: Chronic Comment: Mild to Moderate (1-2+) per echo 01/24/2018, RVSP 27mmhg. EF 65%. 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 Patient also felt abdominal distention. Her abdominal pain states more burning, persistent and on upper abdominal from right to left. Patient denies any fever or chills. Patient has history of hysterectomy, tubal ligation and previous laparotomy for obstruction Last major bowel obstruction secondary to adhesions was in 2011 which did not resolve with conservative measures and required lap converted to laparotomy and adhesiolysis. CT abdomen without IV and oral contrast was reviewed. Fluid distention of the stomach, duodenum and in rest of the small bowel. Moderate amount of fecal material in colon which seems dry. Reported as early small bowel obstruction. Multiple colonic diverticula were noted. The patient also has aortic valve regurgitation diagnosed as per echo in February 10, [address] Yi. Patient was referred to valve surgery and has appointment on 08/01/2019 for surgery Past Medical History Past Medical History (Chronic Problems): Chronic Problems (Last Reviewed 02/20/19 @ 15:58 by Jina Willis) Acute stress reaction (Chronic) celexa ordered, encouraged counseling, undergoing open heart surgery soon. History of right and left heart catheterization (Chronic 02/10/19) Normal coronary arteries; Normal LV size, wall motion,and systolic function; Aortic Valve Insufficiency Moderate to severe; The patient has normal pulmonary hemodynamics. Aortic Root dilated. RECOMMENDATIONS: Surgery consult for Valve Replacement and aortic root surgery Pt to notify Dr Yi regarding hospital to refer for AVR and Aortic root replacement. Abnormal EKG (Chronic) Prolonged QT interval (Chronic) First degree AV block (Chronic) Obesity (Chronic) Hyperlipidemia (Chronic) Lichen sclerosus et atrophicus (Chronic) clobetasol, discussed usage intructions, recommend derm evaluation due to persistence despite clobetasol therapy Nonrheumatic aortic valve insufficiency (Chronic) Mild to Moderate (1-2+) per echo 01/24/2018, RVSP 27mmhg. EF 65%. Hypertension (Chronic) Medical History: Medical History (Last Reviewed 02/20/19 @ 15:58 by Jina Willis) Chest pain (Acute) R07.9 Fatigue (Acute) R53.83 Dyspnea on exertion (Acute) R06.09 Abnormal EKG (Chronic) R94.31 Prolonged QT interval (Chronic) R94.31 First degree AV block (Chronic) I44.0 Nonrheumatic aortic valve insufficiency (Chronic) I35.1 Mild to Moderate (1-2+) per echo 01/24/2018, RVSP 27mmhg. EF 65%. Hypertension (Chronic) I10 Obesity E66.9 SBO (small bowel obstruction) K56.609 Allergies hydrochlorothiazide Adverse Reaction (Severe, Verified 07/30/19 14:11) SEVERE HYPOKALEMIA, hospitalized for it bee venom protein (honey bee) Adverse Reaction (Verified 07/30/19 14:11) Swelling Home Medications: Ambulatory Orders Medication Instructions Recorded Olmesartan Medoxomil [Benicar] 10 mg PO DAILY 07/30/19 Potassium Chloride [K-Dur] 20 meq PO DAILY 07/30/19 Surgical History: Surgical History (Last Updated 02/21/19 @ 03:23 by Katya Marshall MD) History of right and left heart catheterization (Chronic) Onset Date: 02/10/19 Z98.890 Normal coronary arteries; Normal LV size, wall motion,and systolic function; Aortic Valve Insufficiency Moderate to severe; The patient has normal pulmonary hemodynamics. Aortic Root dilated. RECOMMENDATIONS: Surgery consult for Valve Replacement and aortic root surgery Pt to notify Dr Yi regarding hospital to refer for AVR and Aortic root replacement. 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 Denies: Chills, Fever HEENT: Denies: Head Aches, Sinus Congestion, Sinus Drainage Cardiovascular: Denies: Chest Pain, Palpitations Respiratory: Denies: Cough, Shortness of breath at rest, Sputum production Gastrointestinal: Reports: Abdominal Pain, Constipation, Nausea. Denies: Hematemesis, Hematochezia, Melena, Vomiting Genitourinary: Denies: Dysuria, Frequency, Hesitancy Musculoskeletal: Denies: Joint Pain, Joint Tenderness Skin: Denies: Rash, Wounds Neurological: Denies: Numbness, Tingling, Focal weakness Psychiatric: Denies: Anxiety, Depression, Homicidal Ideations, Suicidal Ideations Hematologic/ Lymphatic: Denies: Easy Bruising, Easy Bleeding VTE Information - Inpt Only VTE Present on Admission: No VTE Mechan Device Prophylaxis: None VTE Pharm Prophylaxis ordered?: Yes Patient Problems: Active and Suspected Problems (Last Reviewed 07/11/19 @ 15:58 by Jina Willis) Small bowel obstruction (Acute) - Physical Exam Vitals/I&O's: Vital Signs Temp Pulse Resp BP Pulse Ox 98.0 F 89 16 145/83 H 98 07/30/19 14:09 07/30/19 14:09 07/30/19 14:09 07/30/19 14:09 07/30/19 14:09 Oxygen Delivery Method Room Air Weight: 201 lb 11.567 oz Body Mass Index (BMI) 31.6 Intake and Output for Last 24 Hours 07/28/19 07/29/19 07/30/19 23:59 23:59 23:59 Intake Total 1000 / 1000 Balance 1000 / 1000 General: Alert, Oriented x3, Cooperative HEENT: Atraumatic, PERRLA, EOMI, Normocephalic Oral: Dry Mucosa Neck: Supple, No JVD, Negative Carotid Bruits Lungs: Clear to auscultation, Normal air movement, No rhonchi, No wheeze Cardiovascular: Regular rate, Regular Rhythm, Normal S1, Normal S2, Murmur - Diastolic murmur grade 3/6 heard over aortic area Abdomen: Bowel Sounds Present, Soft, Hypoactive Bowel Sounds, Guarding, Tender - Tenderness present on right and left upper quadrants. Generalized abdominal distention. Extremities: No edema, Capillary Refill Less than 3 Seconds Skin: No rashes, No breakdown Musculoskeletal: No Tenderness to Palpation of Joints or Extremities, Arthritic Changes Neurological: Cranial nerves II-XII grossly intact, Deep Tendon Reflexes 2+/4 and Symmetrical, Neuro grossly intact Psych/Mental Status: Normal Affect, Appropriate Laboratory Results 07/30/19 14:40: WBC 10.3, RBC 4.97, Hgb 14.8, Hct 44.8, MCV 90.1, MCH 29.8, MCHC 33.0, RDW Std Deviation 42.8, RDW Coeff of Bhavya 13.1, Plt Count 389, MPV 9.5, Immature Gran % (Auto) 0.800, Neut % (Auto) 71.0 H, Lymph % (Auto) 19.8, [place] % (Auto) 7.1, Eos % (Auto) 0.7, Baso % (Auto) 0.6, Absolute Neuts (auto) 7.3, Absolute Lymphs (auto) 2.05, Nucleated RBC % 0 07/30/19 14:40: Sodium 139, Potassium 3.7, Chloride 103, Carbon Dioxide 29.0, Anion Gap 7, BUN 15, Creatinine 0.92, Estim Creat Clear Calc 63.24, Est GFR (MDRD) Af Amer 80, Est GFR (MDRD) Non-Af 66, BUN/Creatinine Ratio 16.4, Glucose 110 H, Calcium 9.4, Total Bilirubin 0.40, AST 23, ALT 41, Alkaline Phosphatase 98, Total Protein 8.6 H, Albumin 4.3, Globulin 4.3 H, Albumin/Globulin Ratio 1.0, Lipase 103 07/30/19 15:25: Urine Color Yellow, Urine Clarity Clear, Urine pH 5.0, Ur Specific [place] 1.025, Urine Protein 15 H, Urine Glucose (UA) Normal, Urine Ketones 5 H, Urine Occult Blood 25 H, Urine Nitrite Negative, Urine Bilirubin Negative, Urine Urobilinogen Normal, Ur Leukocyte Esterase 25 H, Urine RBC 0 SEEN, Urine WBC 0 SEEN, Ur Squamous Epith Cells 0-5 SEEN, Other Crystals , Urine Bacteria RARE, Urine Mucus 0 SEEN Current Medications Throat Lozenges (Cepacol Sore Throat Lozenge) 2 lozenge MUCOUS MEM Q2H PRN PRN PRN Reason: SORE THROAT Assessment/Plan All Active Problems (Last Reviewed 02/20/19 @ 15:58 by Jina Willis) Small bowel obstruction (Acute) Fatigue (Acute) Dyspnea on exertion (Acute) Upper respiratory infection (Acute) Segmental and somatic dysfunction of pelvic region (Acute) Segmental and somatic dysfunction of lumbar region (Acute) The patient is a 58 year old F with 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 Patient also felt abdominal distention. Her abdominal pain states more burning, persistent and on upper abdominal from right to left. Patient denies any fever or chills. Patient has history of hysterectomy, tubal ligation and previous laparotomy for obstruction Last major bowel obstruction secondary to adhesions was in 2011 which did not resolve with conservative measures and required lap converted to laparotomy and adhesiolysis. 1. Acute on recurrent small bowel obstruction with dry fecal matter in colon: The patient is being admitted to [facility] floor. Patient seen by Dr. Shrestha in ER. CT abdomen without IV and oral contrast was reviewed. Fluid distention of the stomach, duodenum and in rest of the small bowel. Moderate amount of fecal material in colon which seems dry. Reported as early small bowel obstruction. Multiple colonic diverticula were noted. Started on conservative management including n.p.o., IV fluid Ringer lactate, NG tube insertion and suction, monitor intake and output. Surgeon suggested possible KUB x-ray tomorrow with Gastrografin pending progress tomorrow. 2. Severe aortic insufficiency and hypertension: She had Echo in February 10, 2019. Her all round logger is Dr. Yi. The estimated ejection fraction is 65 %. Moderately severe (3+) aortic valve insufficiency. Moderately dilated aortic root of 4.2 cm. Pulmonary venous flow normal. Try to avoid hypotension. Keep the systolic blood pressure in the range of 110 to 130 mmHg. Patient on Benicar 10 mg daily at home currently on hold as she is n.p.o. Patient was referred to valve surgery and has appointment on 08/01/2019 for surgery 3. Other comorbidities include lichen sclerosis at atrophicus, obesity, dyslipidemia Code Visit Inpatient E&M: 32606 Init Hosp L3
[2019-07-30 17:55] VITALS: BMI 30.7
[2019-07-30 18:10] VITALS: BP 151/74; PULSE 66; RESP 16; TEMP 36.7; O2SAT 97
[2019-07-30 18:25] LABS: Magnesium 2.4 mg/dL (1.6-2.6)
[2019-07-30 18:58] LABS: Hemoglobin A1c 5.8 % (4.2-6.3)
[2019-07-30 20:00] VITALS: BP 164/87; PULSE 60; RESP 18; TEMP 36.7; O2SAT 97
[2019-07-30] MEDS: Lactated Ringers 1,000 ML 100 ML IV (20:16)
[2019-07-30] MEDS: 0.9% Saline Lock 10 ML Syringe IV (20:17)
[2019-07-30] MEDS: Enalaprilat 1.25 MG/ML Vial IV (21:24)
[2019-07-30] MEDS: Morphine 2 MG/ML Syringe IV (21:24)
[2019-07-30 21:45] VITALS: O2SAT 98
[2019-07-31] VITALS (7 sets, daily range): BP systolic 140–183; BP diastolic 73–89; PULSE 65–83; RESP 14–18; TEMP 36.5–37.4; O2SAT 94–98
[2019-07-31] MEDS: Lactated Ringers 1,000 ML 100 ML IV ×2 (04:57→16:56)
[2019-07-31] MEDS: BENZOCAINE/MENTHOL 1 LOZENGE 2 LOZENGE MUCOUS MEM (05:00)
[2019-07-31 05:35] LABS: Absolute Lymphocyte Count 1.54 X10^3/uL (0.83-4.51); Absolute Neutrophil Count 6.9 X10^3/uL (2.0-7.7); Basophil# 0.03 X10^3/uL; Basophil% 0.3 % (0-1); Eosinophil# 0.09 X10^3/uL; Hematocrit 39.5 % (37-47); Hemoglobin 12.9 g/dL (12.0-15.0); Lymphocyte # 1.54 X10^3/ul (4.0); Lymphocyte % 16.5 % (19-41); Mean Corp Hgb Conc 32.7 g/dL (32-36); Mean Corpuscular Hgb 29.8 pg (27.0-32.0); Mean Corpuscular Volume 91.2 fL (81-99); Mean Platelet Vol. 9.7 fl (6.2-12.0); Monocyte# 0.79 X10^3/uL; Monocyte% 8.5 % (0-10); NRBC Flagged by Analyzer 0 % (0-5); Neutrophil # 6.85 X10^3/uL (2.7-7.7); Neutrophil % 73.4 % (47-70); Platelet Count 337 K/mm3 (150-450); RBC Distribution Width CV 13.4 % (11.6-14.6); RBC Distribution Width SD 45.1 fl (35.1-43.9); Red Blood Count 4.33 M/mm3 (4.2-5.4); White Blood Count 9.3 K/mm3 (4.4-11.0)
--- NOTE | 2019-07-31 06:01 | PN.SURG_ITS ---
Patient Problems: Active and Suspected Problems (Last Reviewed 02/20/19 @ 15:58 by Jina Willis) Small bowel obstruction (Acute) Subjective: Patient is still sore this morning but less painful than upon admission, 700 cc out per NG tube, no flatus or stool - Physical Exam Vitals/I&O's: Vital Signs Temp Pulse Resp BP Pulse Ox 98.8 F 72 18 140/78 H 98 07/31/19 02:00 07/31/19 02:00 07/31/19 02:00 07/31/19 02:00 07/31/19 02:00 Oxygen Delivery Method Room Air Weight: 201 lb 15.095 oz Body Mass Index (BMI) 30.7 Intake and Output for Last 24 Hours 07/29/19 07/30/19 07/31/19 23:59 23:59 23:59 Intake Total 1050 / 1050 918.33 / 918.33 Output Total 1200 / 1200 Balance 1050 / -150 -281.67 / -281.67 Abdomen: Soft, Hypoactive Bowel Sounds, - - Softer than on admission, mildly diffusely tender Laboratory Results 07/30/19 14:40: WBC 10.3, RBC 4.97, Hgb 14.8, Hct 44.8, MCV 90.1, MCH 29.8, MCHC 33.0, RDW Std Deviation 42.8, RDW Coeff of Bhavya 13.1, Plt Count 389, MPV 9.5, Immature Gran % (Auto) 0.800, Neut % (Auto) 71.0 H, Lymph % (Auto) 19.8, Cascade % (Auto) 7.1, Eos % (Auto) 0.7, Baso % (Auto) 0.6, Absolute Neuts (auto) 7.3, Absolute Lymphs (auto) 2.05, Nucleated RBC % 0 07/30/19 14:40: Sodium 139, Potassium 3.7, Chloride 103, Carbon Dioxide 29.0, Anion Gap 7, BUN 15, Creatinine 0.92, Estim Creat Clear Calc 63.24, Est GFR (MDRD) Af Amer 80, Est GFR (MDRD) Non-Af 66, BUN/Creatinine Ratio 16.4, Glucose 110 H, Calcium 9.4, Total Bilirubin 0.40, AST 23, ALT 41, Alkaline Phosphatase 98, Total Protein 8.6 H, Albumin 4.3, Globulin 4.3 H, Albumin/Globulin Ratio 1.0, Lipase 103 07/30/19 14:40: Hemoglobin A1c 5.8 07/30/19 14:40: Magnesium 2.4 07/30/19 15:25: Urine Color Yellow, Urine Clarity Clear, Urine pH 5.0, Ur Specific [place] 1.025, Urine Protein 15 H, Urine Glucose (UA) Normal, Urine Ketones 5 H, Urine Occult Blood 25 H, Urine Nitrite Negative, Urine Bilirubin Negative, Urine Urobilinogen Normal, Ur Leukocyte Esterase 25 H, Urine RBC 0 SEEN, Urine WBC 0 SEEN, Ur Squamous Epith Cells 0-5 SEEN, Other Crystals , Urine Bacteria RARE, Urine Mucus 0 SEEN 07/31/19 04:56: WBC 9.3, RBC 4.33, Hgb 12.9, Hct 39.5, MCV 91.2, MCH 29.8, MCHC 32.7, RDW Std Deviation 45.1 H, RDW Coeff of Bhavya 13.4, Plt Count 337, MPV 9.7, Immature Gran % (Auto) 0.300, Neut % (Auto) 73.4 H, Lymph % (Auto) 16.5 L, Cascade % (Auto) 8.5, Eos % (Auto) 1.0, Baso % (Auto) 0.3, Absolute Neuts (auto) 6.9, Absolute Lymphs (auto) 1.54, Nucleated RBC % 0 07/31/19 04:56: Sodium Pending, Potassium Pending, Chloride Pending, Carbon Dioxide Pending, Anion Gap Pending, BUN Pending, Creatinine Pending, Est GFR (MDRD) Af Amer Pending, Est GFR (MDRD) Non-Af Pending, BUN/Creatinine Ratio Pending, Glucose Pending, Calcium Pending, TSH Pending Current Medications Acetaminophen (Tylenol) 650 mg PO Q6H PRN PRN PRN Reason: Pain Score 1-3/Temp > 100.7 F Enalaprilat (Vasotec) 1.25 mg IV Q6H PRN PRN PRN Reason: SBP>160 mmhg Last Admin: 07/30/19 21:24 Dose: 1.25 mg Documented by: Enoxaparin Sodium (Lovenox) 40 mg SC DAILY [facility] Last Admin: 07/30/19 19:01 Dose: Not Given Documented by: Glucagon () 1 mg IM .X1 PRN PRN Reason: Hypoglycemia Hydromorphone HCl (Dilaudid Inj) 0.5 mg IV Q4H PRN PRN PRN Reason: Pain Score 6-10/10 Lactated Ringer's () 1,000 mls @ 100 mls/hr IV .Q10H [facility] Last Admin: 07/31/19 04:57 Dose: 100 mls/hr Documented by: Dextrose (Dextrose 10%-Water) 250 mls @ 999 mls/hr IV .Q16M PRN; Protocol PRN Reason: HYPOGLYCEMIA Morphine Sulfate () 2 mg IV Q3H PRN PRN PRN Reason: Pain Score 4-5/10 Last Admin: 07/30/19 21:24 Dose: 2 mg Documented by: Nitroglycerin (Nitrostat) 0.4 mg SUBLINGUAL Q5M PRN PRN Reason: CARDIAC/CHEST PAIN Ondansetron HCl (Zofran) 4 mg IV Q8H PRN PRN PRN Reason: NAUSEA/VOMITING Last Admin: 07/30/19 21:24 Dose: 4 mg Documented by: Prochlorperazine Edisylate (Compazine Iv) 5 mg IV Q4H PRN PRN PRN Reason: Breakthrough nausea/vomiting Sodium Chloride () 10 - 40 ml IV UD PRN PRN Reason: SALINE FLUSH Last Admin: 07/30/19 20:17 Dose: 10 ml Documented by: Throat Lozenges (Cepacol Sore Throat Lozenge) 2 lozenge MUCOUS MEM Q2H PRN PRN PRN Reason: SORE THROAT Last Admin: 07/31/19 05:00 Dose: 2 lozenge Documented by: Medical Necessity - Tobacco Use Smoking Status: Former smoker Assessment/Plan All Active Problems (Last Reviewed 02/20/19 @ 15:58 by Jina Willis) Small bowel obstruction (Acute) Fatigue (Acute) Dyspnea on exertion (Acute) Upper respiratory infection (Acute) Segmental and somatic dysfunction of pelvic region (Acute) Segmental and somatic dysfunction of lumbar region (Acute) We will plan Gastrografin small bowel study via NG tube per SBO protocol Patient encouraged to ambulate
[2019-07-31 06:21] LABS: Anion Gap 5 (5-15); BUN 15 mg/dL (7-18); BUN/Creat Ratio 19.1 RATIO (10-20); Calcium,Total 8.2 mg/dL (8.5-10.1); Chloride 108 mmol/L (98-107); Creatinine, Serum 0.78 mg/dL (0.55-1.02); EST Glomerular Filtration Rate 79 mL/min (>60); Est Glom Filt Rate - Afr Amer 96 mL/min (>60); Estimated Creatinine Clearance 77.37 ml/min; Glucose 110 mg/dL (74-106); Potassium 3.8 mmol/L (3.5-5.1); Sodium Level 139 mmol/L (136-145); Thyroid Stim Hormone (TSH) 2.15 uIU/mL (0.358-3.74)
[2019-07-31] MEDS: 0.9% Saline Lock 10 ML Syringe IV (09:21)
[2019-07-31] MEDS: Enalaprilat 1.25 MG/ML Vial IV ×2 (09:22→22:26)
--- NOTE | 2019-07-31 09:40 | RAD_ITS ---
STUDY: GASTROGRAFIN SMALL BOWEL FOLLOW-THROUGH EXAMINATION. REASON FOR EXAM: Female, 58 years old. Small bowel obstruction. 15 images were obtained. TECHNIQUE: Gastrografin was introduced through the nasogastric tube. A small bowel follow-through examination was obtained. COMPARISON: Comparison is made with prior abdominal series dated July 30, 2019. FINDINGS: There is evidence of a partial small bowel obstruction. The colon is seen at the 240 minute image. Findings are in keeping with an incomplete small bowel obstruction. RAD/Small Bowel Series Only IMPRESSION: Findings suggestive of a partial small bowel obstruction with delayed emptying into the colon at 4 hours. Electronically Signed: Duy Coppola, at 15:42 EST , Service support ,
--- NOTE | 2019-07-31 10:39 | CASEMGMT ---
RN CM Assessment Introduced role of RN CM to patient Praful at bedside as patient is currently in a procedure.? Care providers, pharmacy, and demographics verified. Presentation: Gradually progressing worsening pain, H/o recurrent SBO w/congenital small bowel rotation and had laparotomy at time of . Admit Dx: SBO Re-Admit: No Barriers/Issues: None PCP: Sailaja Elizalde (Per unsure if this is her PCP) per Chart review patient last seen close to 1yr ago Specialists: Cardio- Dr Yi, Cardio Surg- At [facility] Dr Montes, Gen Surg- Dr Shrestha Preferred Pharmacy: [facility] Insurance: [employer] Rx Benefit: Yes? ?LNOK: Praful Umana LW/HPOA: Both on file at [facility], HPOA- Praful Umana Living Arrangements:? Lives with in a [address] fl apartment with approx 17 steps during the week, states lives in a house on the weekends somewhere else. ADL?s: Independent with ambulation and ADLs Transportation: Both patient and drive DME: None HHC: None SNF: None Goal: Home and does not think his will have any needs upon DC. States that she has been through this 5yrs ago. States patient is very Independent and healthy. Denies any issues, questions, or concerns with DC planning at this time. Aware CM remains available for any emerging needs. DC PLAN: Home with no anticipated needs identified at this time. DAVID Sesay
--- NOTE | 2019-07-31 13:40 | CASEMGMT ---
LW/POA forms scanned into summary tab of echart, pt's is listed as pt's medical POA. MIRYAM Givens
--- NOTE | 2019-07-31 16:40 | PCM.PROGNOTE ---
Patient Problems: Active and Suspected Problems (Last Reviewed 02/20/19 @ 15:58 by Jina Willis) Small bowel obstruction (Acute) Subjective: Patient was seen and examined today, she had an upper GI with small bowel follow-through performed today, there was delayed transit of the contrast into the colon at 4 hours. Patient's was in the room and I talked with him briefly today also. - Physical Exam Vitals/I&O's: Vital Signs Temp Pulse Resp BP Pulse Ox 99.4 F H 66 18 151/81 H 97 07/31/19 15:21 07/31/19 15:21 07/31/19 15:21 07/31/19 15:21 07/31/19 15:21 Oxygen Delivery Method Room Air Weight: 91.6 kg Body Mass Index (BMI) 30.7 Intake and Output for Last 24 Hours 07/29/19 07/30/19 07/31/19 23:59 23:59 23:59 Intake Total 1050 / 1050 1561.66 / 1561.66 Output Total 1900 / 1900 Balance 1050 / -150 -338.34 / -338.34 General: Alert, Oriented x3, Cooperative, No apparent distress, Well developed HEENT: Atraumatic, PERRLA, EOMI, Normocephalic Oral: Moist Mucosa Neck: Supple, Trachea Midline, Thyroid Normal Size and Texture Lungs: Clear to auscultation, Normal air movement, No rhonchi, No wheeze, No rales Cardiovascular: Regular rate, Regular Rhythm, Murmur - He is a 2/6 systolic murmur noted at the right sternal border and left sternal border Abdomen: Bowel Sounds Present, Soft, Non Tender, Non-Distended, Hypoactive Bowel Sounds Extremities: No clubbing, No cyanosis, No edema, Capillary Refill Less than 3 Seconds Skin: No rashes, No breakdown Musculoskeletal: No Tenderness to Palpation of Joints or Extremities Neurological: Cranial nerves II-XII grossly intact, Neuro grossly intact, Sensory exam intact to light touch and pain, Coordination normal Psych/Mental Status: Normal Affect, Appropriate, Alert and oriented to time, place, person, mood and affect Laboratory Results 07/30/19 14:40: Hemoglobin A1c 5.8 07/30/19 14:40: Magnesium 2.4 07/31/19 04:56: WBC 9.3, RBC 4.33, Hgb 12.9, Hct 39.5, MCV 91.2, MCH 29.8, MCHC 32.7, RDW Std Deviation 45.1 H, RDW Coeff of Bhavya 13.4, Plt Count 337, MPV 9.7, Immature Gran % (Auto) 0.300, Neut % (Auto) 73.4 H, Lymph % (Auto) 16.5 L, [place] % (Auto) 8.5, Eos % (Auto) 1.0, Baso % (Auto) 0.3, Absolute Neuts (auto) 6.9, Absolute Lymphs (auto) 1.54, Nucleated RBC % 0 07/31/19 04:56: Sodium 139, Potassium 3.8, Chloride 108 H, Carbon Dioxide 26.0, Anion Gap 5, BUN 15, Creatinine 0.78, Estim Creat Clear Calc 77.37, Est GFR (MDRD) Af Amer 96, Est GFR (MDRD) Non-Af 79, BUN/Creatinine Ratio 19.1, Glucose 110 H, Calcium 8.2 L, TSH 2.15 Current Medications Acetaminophen (Tylenol) 650 mg PO Q6H PRN PRN PRN Reason: Pain Score 1-3/Temp > 100.7 F Enalaprilat (Vasotec) 1.25 mg IV Q6H PRN PRN PRN Reason: SBP>160 mmhg Last Admin: 07/31/19 09:22 Dose: 1.25 mg Documented by: Enoxaparin Sodium (Lovenox) 40 mg SC DAILY [facility] Last Admin: 07/31/19 08:32 Dose: Not Given Documented by: Glucagon () 1 mg IM .X1 PRN PRN Reason: Hypoglycemia Hydromorphone HCl (Dilaudid Inj) 0.5 mg IV Q4H PRN PRN PRN Reason: Pain Score 6-10/10 Lactated Ringer's () 1,000 mls @ 100 mls/hr IV .Q10H [facility] Last Infusion: 07/31/19 12:13 Dose: 100 mls/hr Documented by: Dextrose (Dextrose 10%-Water) 250 mls @ 999 mls/hr IV .Q16M PRN; Protocol PRN Reason: HYPOGLYCEMIA Morphine Sulfate () 2 mg IV Q3H PRN PRN PRN Reason: Pain Score 4-5/10 Last Admin: 07/30/19 21:24 Dose: 2 mg Documented by: Nitroglycerin (Nitrostat) 0.4 mg SUBLINGUAL Q5M PRN PRN Reason: CARDIAC/CHEST PAIN Ondansetron HCl (Zofran) 4 mg IV Q8H PRN PRN PRN Reason: NAUSEA/VOMITING Last Admin: 07/30/19 21:24 Dose: 4 mg Documented by: Prochlorperazine Edisylate (Compazine Iv) 5 mg IV Q4H PRN PRN PRN Reason: Breakthrough nausea/vomiting Sodium Chloride () 10 - 40 ml IV UD PRN PRN Reason: SALINE FLUSH Last Admin: 07/31/19 09:21 Dose: 10 ml Documented by: Throat Lozenges (Cepacol Sore Throat Lozenge) 2 lozenge MUCOUS MEM Q2H PRN PRN PRN Reason: SORE THROAT Last Admin: 07/31/19 05:00 Dose: 2 lozenge Documented by: Medical Necessity - Tobacco Use Smoking Status: Former smoker Assessment/Plan All Active Problems (Last Reviewed 02/20/19 @ 15:58 by Jina Willis) Small bowel obstruction (Acute) Fatigue (Acute) Dyspnea on exertion (Acute) Upper respiratory infection (Acute) Segmental and somatic dysfunction of pelvic region (Acute) Segmental and somatic dysfunction of lumbar region (Acute) #1 partial small bowel obstruction-continue NG suction and management per surgery #2 aortic regurg #3 essential hypertension-continue to observe blood pressure, if it becomes necessary to give the patient blood pressure medication, I would advise enalapril IV, for now I will continue to observe blood pressure. Code Visit Inpatient E&M: 19681 Subs Hosp L2
--- NOTE | 2019-07-31 22:30 | NURSING ---
prn vacotec given for BP 183/89. Flushed NG with 50cc NS. Pt denies n&v, active BS.
--- NOTE | 2019-07-31 22:50 | NURSING ---
pt ambulating in [place] with
[2019-08-01] MEDS: Lactated Ringers 1,000 ML 100 ML IV (02:38)
[2019-08-01 05:00] VITALS: BP 159/83; PULSE 78; RESP 18; TEMP 36.7; O2SAT 95
--- NOTE | 2019-08-01 06:16 | PCM.PN.SRG ---
Patient Problems: Active and Suspected Problems (Last Reviewed 02/20/19 @ 15:58 by Jina Willis) Small bowel obstruction (Acute) Subjective: 58-year-old female. NG tube has decreasing output. It is now a light brown. Gastrografin small bowel follow-through yesterday demonstrated partial obstruction. 4 hours required transit to the large bowel. She did have a small bowel movement this morning. She denies pain but notes generalized soreness. No current nausea. - Physical Exam Vitals/I&O's: Vital Signs Temp Pulse Resp BP Pulse Ox 98.1 F 78 18 159/83 H 95 08/01/19 05:00 08/01/19 05:00 08/01/19 05:00 08/01/19 05:00 08/01/19 05:00 Oxygen Delivery Method Room Air Weight: 197 lb 15.602 oz Body Mass Index (BMI) 30.7 Intake and Output for Last 24 Hours 07/30/19 07/31/19 08/01/19 23:59 23:59 23:59 Intake Total 1050 / 1050 2133.33 / 2183.33 1120 / 1120 Output Total 3000 / 3600 1300 / 1300 Balance 1050 / -150 -866.67 / -1416.67 -180 / -180 Abdomen: Bowel Sounds Present - Mild diffuse tenderness, improved, Soft Laboratory Results 07/31/19 04:56: Sodium 139, Potassium 3.8, Chloride 108 H, Carbon Dioxide 26.0, Anion Gap 5, BUN 15, Creatinine 0.78, Estim Creat Clear Calc 77.37, Est GFR (MDRD) Af Amer 96, Est GFR (MDRD) Non-Af 79, BUN/Creatinine Ratio 19.1, Glucose 110 H, Calcium 8.2 L, TSH 2.15 Current Medications Acetaminophen (Tylenol) 650 mg PO Q6H PRN PRN PRN Reason: Pain Score 1-3/Temp > 100.7 F Enalaprilat (Vasotec) 1.25 mg IV Q6H PRN PRN PRN Reason: SBP>160 mmhg Last Admin: 07/31/19 22:26 Dose: 1.25 mg Documented by: Enoxaparin Sodium (Lovenox) 40 mg SC DAILY [facility] Last Admin: 07/31/19 08:32 Dose: Not Given Documented by: Glucagon () 1 mg IM .X1 PRN PRN Reason: Hypoglycemia Hydromorphone HCl (Dilaudid Inj) 0.5 mg IV Q4H PRN PRN PRN Reason: Pain Score 6-10/10 Lactated Ringer's () 1,000 mls @ 100 mls/hr IV .Q10H [facility] Last Admin: 08/01/19 02:38 Dose: 100 mls/hr Documented by: Dextrose (Dextrose 10%-Water) 250 mls @ 999 mls/hr IV .Q16M PRN; Protocol PRN Reason: HYPOGLYCEMIA Morphine Sulfate () 2 mg IV Q3H PRN PRN PRN Reason: Pain Score 4-5/10 Last Admin: 07/30/19 21:24 Dose: 2 mg Documented by: Nitroglycerin (Nitrostat) 0.4 mg SUBLINGUAL Q5M PRN PRN Reason: CARDIAC/CHEST PAIN Ondansetron HCl (Zofran) 4 mg IV Q8H PRN PRN PRN Reason: NAUSEA/VOMITING Last Admin: 07/30/19 21:24 Dose: 4 mg Documented by: Prochlorperazine Edisylate (Compazine Iv) 5 mg IV Q4H PRN PRN PRN Reason: Breakthrough nausea/vomiting Sodium Chloride () 10 - 40 ml IV UD PRN PRN Reason: SALINE FLUSH Last Admin: 07/31/19 09:21 Dose: 10 ml Documented by: Throat Lozenges (Cepacol Sore Throat Lozenge) 2 lozenge MUCOUS MEM Q2H PRN PRN PRN Reason: SORE THROAT Last Admin: 07/31/19 05:00 Dose: 2 lozenge Documented by: Medical Necessity - Tobacco Use Smoking Status: Former smoker Assessment/Plan All Active Problems (Last Reviewed 02/20/19 @ 15:58 by Jina Willis) Small bowel obstruction (Acute) Fatigue (Acute) Dyspnea on exertion (Acute) Upper respiratory infection (Acute) Segmental and somatic dysfunction of pelvic region (Acute) Segmental and somatic dysfunction of lumbar region (Acute) We will remove the NG tube. Start clear liquids advance as tolerated. I anticipate that she may make progress to allow for discharge later today. The patient has remained out of the hospital for 4 years likely secondary to her spinning bicycle exercise routine and walking routine which is assisted her bowel function. Because of her aortic valvular situation she has been instructed by cardiology not to exercise. With that in mind I have instructed her to initiate a MiraLAX product daily starting with 1/2-1 capful. Hopefully she will be able to proceed on directly with surgical treatment of her valve so that she can reinitiate her exercise routine to facilitate her bowel function. Lenny Shrestha M.D., F.A.C.S.
--- NOTE | 2019-08-01 06:40 | NURSING ---
NG removed per Dr. Chance order. Pt tolerated well.
[2019-08-01 08:06] VITALS: BP 172/88; PULSE 77; RESP 18; TEMP 36.6; O2SAT 98
--- NOTE | 2019-08-01 08:38 | NURSING ---
Patient's BP 172/88. Did not want to take PRN IV vasotec for her high BP.
--- NOTE | 2019-08-01 11:49 | DCINST_ITS ---
- Discharge Diagnoses Current Active Problems: Current Active and Chronic Problems (Last Reviewed 02/20/19 @ 15:58 by Jina Willis) Small bowel obstruction (Acute) You will use the following diet at home:: No restrictions Your food should be the consistency of: Regular Your liquids should be the consistency of: Regular/Thin Discharge Activity: Return to Normal Activity Weight Bearing Status: Full weight bearing Additional Instructions: take Miralax 17 grams daily Allergies/Adverse Reactions: Allergies hydrochlorothiazide Adverse Reaction (Severe, Verified 07/30/19 14:11) SEVERE HYPOKALEMIA, hospitalized for it bee venom protein (honey bee) Adverse Reaction (Verified 07/30/19 14:11) Swelling Medications to take at Discharge Olmesartan Medoxomil [Benicar] 10 mg PO DAILY 07/30/19 Potassium Chloride [K-Dur] 20 meq PO DAILY 07/30/19 Primary Care Physician: Sailaja Elizalde MD [Primary Care Provider] - Please follow up with your Primary Care Physician in: at scheduled visit Test Results: Test results from this visit will be discussed in further detail at your follow- up appointment, if applicable.
--- NOTE | 2019-08-01 18:27 | PCM.DC.SUM ---
Discharge Date and Diagnosis Date of Admission: 07/30/19 Date of Discharge: 08/01/19 - Primary Discharge Diagnosis #1 partial small bowel obstruction-resolved with NG suction #2 aortic regurg #3 essential hypertension - Secondary Discharge Diagnosis Chronic Problems (Last Reviewed 02/20/19 @ 15:58 by Jina Willis) Acute stress reaction (Chronic) celexa ordered, encouraged counseling, undergoing open heart surgery soon. History of right and left heart catheterization (Chronic 02/10/19) Normal coronary arteries; Normal LV size, wall motion,and systolic function; Aortic Valve Insufficiency Moderate to severe; The patient has normal pulmonary hemodynamics. Aortic Root dilated. RECOMMENDATIONS: Surgery consult for Valve Replacement and aortic root surgery Pt to notify Dr Yi regarding hospital to refer for AVR and Aortic root replacement. Abnormal EKG (Chronic) Prolonged QT interval (Chronic) First degree AV block (Chronic) Obesity (Chronic) Hyperlipidemia (Chronic) Lichen sclerosus et atrophicus (Chronic) clobetasol, discussed usage intructions, recommend derm evaluation due to persistence despite clobetasol therapy Nonrheumatic aortic valve insufficiency (Chronic) Mild to Moderate (1-2+) per echo 01/24/2018, RVSP 27mmhg. EF 65%. Hypertension (Chronic) Hospital Course and Treatment Operations: None Procedures: None Summary of Care Provided: The patient is a 58 year old F was seen in the emergency room at [facility] with a chief complaint of nausea and diffuse abdominal pain. Patient denied any diarrhea or hematochezia. Patient was negative for emesis. Work-up in the emergency room included a CT of the abdomen was was consistent for an early small bowel obstruction, general surgery was contacted and the patient was admitted to [place] [address] under the hospitalist service. NG tube was inserted and patient was given IV fluids. Upper GI was performed which showed transit of the contrast into the colon. On 08/01/2019, patient was seen and examined by general surgery and her NG was removed and patient was able to advance diet without difficulty. On 08/01/2019, patient was seen and examined: On examination she appeared in good health and spirits. Vital signs as documented. Skin warm and dry and without overt rashes. Neck without JVD. Lungs clear. Heart exam notable for regular rhythm, normal sounds and absence of murmurs, rubs or gallops. Abdomen unremarkable and without evidence of organomegaly, masses, or abdominal aortic enlargement. Extremities nonedematous. Neuro: Cranial nerves II through XII are grossly intact, no focal motor deficits were noted, sensation to light touch and pinprick is intact. Psych: Patient is alert and oriented x3, she does not appear anxious or depressed On 08/01/2019, patient was seen and examined and felt to be in stable condition for discharge home - Physical Exam Vitals/I&O's: Vital Signs Temp Pulse Resp BP Pulse Ox 97.9 F 77 18 172/88 H 98 08/01/19 08:06 08/01/19 08:06 08/01/19 08:06 08/01/19 08:06 08/01/19 08:06 Oxygen Delivery Method Room Air Weight: 89.8 kg Body Mass Index (BMI) 30.7 Intake and Output for Last 24 Hours 07/30/19 07/31/19 08/01/19 23:59 23:59 23:59 Intake Total 1050 / 1050 2133.33 / 2183.33 2331.67 / 2331.67 Output Total 3000 / 3600 2400 / 2400 Balance 1050 / -150 -866.67 / -1416.67 -68.33 / -68.33 Discharge Activity: Return to Normal Activity Weight Bearing Status: Full weight bearing Home Medications: Medications to take at Discharge Olmesartan Medoxomil [Benicar] 10 mg PO DAILY 07/30/19 Potassium Chloride [K-Dur] 20 meq PO DAILY 07/30/19 Primary Care Physician: Sailaja Elizalde MD [Primary Care Provider] - Please follow up with your Primary Care Physician in: at scheduled visit Disposition: Home Minutes spent on discharge:: 31 Patient Condition:: Stable Medical Necessity - Tobacco Use Smoking Status: Former smoker Meaningful Use Info Meaningful Use Diagnoses (Choose all that apply): None applicable Code Visit Inpatient E&M: 88694 Disch Hosp
== END 2019-08-01 12:51 | disposition home or self-care (01) | DRG 390 ==
LOC: ED 16:34 → MS3 18:08
PROVIDERS: Admitting Provider Internal Medicine; Emergency Provider Emergency Medicine; Family Provider Internal Medicine; PCP Internal Medicine; Visit Provider Internal Medicine
DX: K56.600 Partial intestinal obstruction, unspecified as to cause (principal); I10 Essential (primary) hypertension; I35.1 Nonrheumatic aortic (valve) insufficiency; L90.0 Lichen sclerosus et atrophicus; Z87.891 Personal history of nicotine dependence; I44.0 Atrioventricular block, first degree; E66.9 Obesity, unspecified; E78.5 Hyperlipidemia, unspecified; Z68.30 Body mass index [BMI] 30.0-30.9, adult
CPT/HCPCS: 36415; 74018; 74177; 74250; 80048; 80053; 81001; 83036; 83690; 83735; 84443; 85025; 97802; 99251; 99285; J7120; Q9967; A4216; G0463; J2405

== ENCOUNTER → 2020-02-03 11:54 | Outpatient (CLI) | payer OTHER, SELFPAY ==
[2019-10-13 13:09] VITALS: BMI 29.9
[2020-02-03 15:25] LABS: Absolute Lymphocyte Count 2.18 X10^3/uL (0.83-4.51); Basophil# 0.05 X10^3/uL; Basophil% 0.6 % (0-1); Eosinophils% 1.3 % (0-5); Hematocrit 38.5 % (37-47); Hemoglobin 12.5 g/dL (12.0-15.0); Lymphocyte # 2.18 X10^3/ul (4.0); Lymphocyte % 27.5 % (19-41); Mean Corp Hgb Conc 32.5 g/dL (32-36); Mean Corpuscular Volume 95.5 fL (81-99); Mean Platelet Vol. 9.8 fl (6.2-12.0); Monocyte# 0.58 X10^3/uL; Monocyte% 7.3 % (0-10); NRBC Flagged by Analyzer 0 % (0-5); Neutrophil # 4.96 X10^3/uL (2.7-7.7); Neutrophil % 62.5 % (47-70); Platelet Count 564 K/mm3 (150-450); RBC Distribution Width CV 13.3 % (11.6-14.6); RBC Distribution Width SD 45.1 fl (35.1-43.9); Red Blood Count 4.03 M/mm3 (4.2-5.4); White Blood Count 7.9 K/mm3 (4.4-11.0)
[2020-02-03 16:09] LABS: ALB/GLOB Ratio 0.8 RATIO (0.9-2.4); AST(SGOT) 19 U/L (15-37); Alanine Aminotransfer ALT/SGPT 37 U/L (13-56); Albumin, Serum 3.7 g/dL (3.2-5.0); Alkaline Phosphatase 87 U/L (45-117); Anion Gap 8 (5-15); BUN 12 mg/dL (7-18); BUN/Creat Ratio 14.3 RATIO (10-20); Calcium,Total 9.4 mg/dL (8.5-10.1); Chloride 106 mmol/L (98-107); Creatinine, Serum 0.84 mg/dL (0.55-1.02); EST Glomerular Filtration Rate 73 mL/min (>60); Est Glom Filt Rate - Afr Amer 89 mL/min (>60); Globulin 4.5 g/dL (2.2-4.2); Glucose 87 mg/dL (74-106); Magnesium 2.6 mg/dL (1.6-2.6); Potassium 4.4 mmol/L (3.5-5.1); Protein, Total 8.2 g/dL (6.4-8.2); Sodium Level 140 mmol/L (136-145); Thyroid Stim Hormone (TSH) 2.64 uIU/mL (0.358-3.74)
== END ==
PROVIDERS: PCP Family Medicine; Referring Provider Family Medicine; Visit Provider Family Medicine
DX: I10 Essential (primary) hypertension (principal)
CPT/HCPCS: 36415; 80053; 83735; 84443; 85025

== ENCOUNTER → 2020-02-16 14:13 | Outpatient (CLI) | payer OTHER, SELFPAY ==
[2019-10-13 13:09] VITALS: BMI 29.9
--- NOTE | 2020-02-16 14:17 | ECHOD_ITS ---
Reason For Study: AORTIC INS Procedure This was a 2D Doppler, Color Flow transthoracic echocardiogram. Technically difficult parasternal images. Exam performed in department. Left Ventricle Mild concentric left ventricular hypertrophy. The estimated ejection fraction is 65 %. Stage 1 diastolic dysfunction. No regional wall motion abnormalities noted. Right Ventricle Normal size and thickness. Normal systolic function. Atria Normal left atrium. Normal right atrium. Normal atrial septum. Mitral Valve The mitral valve is structurally normal. No prolapse or stenosis seen. Tricuspid Valve Normal tricuspid valve. Trivial tricuspid valve insufficiency. Right ventricular systolic pressure estimated to be 33 mmHg. Aortic Valve Trisinus/trileaflet aortic valve. Mild aortic stenosis. Peak aortic valve gradient 33 mmHg. Mean aortic valve gradient 17 mmHg. Calculated aortic valve area (continuity equation) is 2.1 cm2. Mild- Moderate (1-2+) aortic valve insufficiency. Pulmonic Valve Normal pulmonic valve. Great Vessels Mildly dilated aortic root. Normal arch. Normal inferior vena cava. Inferior vena cava collapse with sniff. Pericardium/Pleural No pericardial effusion. MMode/2D Measurements & Calculations LVIDd: 3.6 cm IVSd: 1.4 cm LVOT diam: 2.0 cm LVIDs: 2.2 cm LVPWd: 1.4 cm LVOT area: 3.2 cm2 RVDd: 3.3 cm FS: 38.4 % Ao root diam: 4.2 cm LAV(MOD-bp): 56.8 ml LA A4 area: 16.1 cm2 LAV(MOD-bp) Indexed: 28.4 ml/m2 LAV(MOD-sp2): 80.6 ml LAV(MOD-sp4): 40.8 ml LA dimension(2D): 4.0 cm RA A4 area: 14.4 cm2 Time Measurements MV dec time: 0.31 sec Doppler Measurements & Calculations MV E max tigre: 79.6 cm/sec Lat Peak E' Tigre: 7.8 cm/sec Med Peak E' Tigre: 5.7 cm/sec MV A max tigre: 96.9 cm/sec E/E' lat: 10.2 E/E' med: 13.9 MV E/A: 0.82 Ao V2 max: 286.1 cm/sec AI max tigre: 456.7 cm/sec LV V1 max: 188.7 cm/sec Ao max P.8 mmHg AI max P.5 mmHg LV V1 max P.3 mmHg Ao V2 mean: 190.6 cm/sec AI dec slope: 283.3 cm/sec2 LV V1 mean P.3 mmHg Ao mean P.5 mmHg AI P1/2t: 472.2 msec LV V1 mean: 127.3 cm/sec Ao V2 VTI: 52.7 cm LV V1 VTI: 36.3 cm THIAGO(I,D): 2.2 cm2 THIAGO(V,D): 2.1 cm2 SV(LVOT): 117.9 ml PA V2 max: 117.5 cm/sec TR max tigre: 263.9 cm/sec TR max P.9 mmHg Interpretation Summary Mild concentric left ventricular hypertrophy. The estimated ejection fraction is 65 %. Stage 1 diastolic dysfunction. Trivial tricuspid valve insufficiency. Right ventricular systolic pressure estimated to be 33 mmHg. Mild-Moderate (1-2+) aortic valve insufficiency. Mild aortic stenosis. Peak aortic valve gradient 33 mmHg. Mean aortic valve gradient 17 mmHg. Calculated aortic valve area (continuity equation) is 2.1 cm2. Mildly dilated aortic root. Compared to echo report dated 01/28/2018, LV function and degree of aortic insufficiency have remained the same. RVSP has increased from 27 to 33 mmHg. Ordering Physician: ROSANGELA ESPARZA Referring Physician: DR NITO DAVIES Performed By: Tina MARE, BLANCA, Lennie and Student
== END ==
PROVIDERS: PCP Family Medicine
DX: I35.1 Nonrheumatic aortic (valve) insufficiency (principal)
CPT/HCPCS: 93306

== ENCOUNTER → 2020-03-22 13:43 | Outpatient (CLI) | payer OTHER, SELFPAY ==
[2019-10-13 13:09] VITALS: BMI 29.9
--- NOTE | 2020-03-22 13:43 | STEWCON_ITS ---
Reason For Study: Valve Replacement-Eval; Dyspnea Stress Results Protocol: Bobo Protocol WITH DEFINITY Maximum Predicted HR: 159 bpm Target HR: 135 bpm % Maximum Predicted HR: 101 % DurationHeart Rate Stage (mm:ss) (bpm) BP Comment Baseline 68 152/92No Chest Pain; 3 ML Diluted Definity Bobo Protocol Stage I 3:00 115 146/70No Chest Pain; Mild Dyspnea Bobo Protocol Stage II 3:00 141 160/78No Chest Pain; Moderate Dyspnea Bobo Protocol Stage III 1:15 160 / No Chest Pain; Mod To Severe Dyspnea Recovery 82 126/78No Chest Pain; No Dyspnea Stress Duration: 7:15 mm:ss Maximum Stress HR: 160 bpm METS: 10 Baseline Echocardiogram Findings The estimated ejection fraction is 65 %. Stress Echo Wall motion Data Resting WM Intermediate WM Stress WM Resting Wall Motion Wall Motion Stress No regional wall motion No regional wall motion abnormalities noted. abnormalities noted. EKG Data The baseline ECG displays normal sinus rhythm. The patient exercised according to the regular Bobo protocol for a total duration of 7:15. The maximum heart rate attained was 160 beats per minute. This was 100% of maximum predicted heart rate. The patient exercised into stage 3 of the Bobo protocol. During stress, there were no ST or T wave changes noted to suggest ischemia. No clinical angina was noted. Interpretation Summary The estimated ejection fraction is 65 %. Normal, adequate, treadmill echocardiogram. Negative for ischemia by EKG and echocardiographic criteria. No anginal symptoms noted. Rare PAC noted. Appropriate blood pressure response to exercise. Average exercise capacity for age. No change in exercise capacity from previous stress echocardiogram. Final LVEF is 75%. Decrease sensitivity due to poor echo windows. Test terminated due to dyspnea. Patient tolerate procedure well. Peak aortic valve gradient of 42 mmHg at peak exercise. The study was technically difficult. Contrast injection was performed. Ordering Physician: Jimi Yi Referring Physician: Benny Villalobos Performed By: Brodwolf, , RCS
== END ==
PROVIDERS: PCP Family Medicine; Referring Provider Internal Medicine Cardiovascular Disease; Visit Provider Internal Medicine Cardiovascular Disease
DX: I35.1 Nonrheumatic aortic (valve) insufficiency (principal); E78.5 Hyperlipidemia, unspecified; I10 Essential (primary) hypertension; Z95.2 Presence of prosthetic heart valve
CPT/HCPCS: 93017; 93350; Q9957; A4216; C8928

== ENCOUNTER → 2020-04-02 16:24 | Outpatient (CLI) | payer OTHER, SELFPAY ==
[2019-10-13 13:09] VITALS: BMI 29.9
--- NOTE | 2020-04-02 16:27 | RAD_ITS ---
STUDY: X-RAY - RIGHT WRIST REASON FOR EXAM: Female, 59 years old. Right wrist pain/swelling since pulling weeds 2 weeks ago TECHNIQUE: 3 view(s) of the wrist were obtained. COMPARISON: None. FINDINGS: Normal visualized distal radius and ulna. Normal radiocarpal articulation. Normal distal radioulnar articulation. Normal carpal bones. Normal carpal articulations. Mild degenerative changes at the carpometacarpal articulation of the thumb. Normal second through fifth carpometacarpal articulations. Normal visualized metacarpal bones. The soft tissue structures are unremarkable. RAD/Wrist min 3 Views IMPRESSION: No acute bony pathology of the wrist. Electronically Signed: Thiago Persaud DO at 18:45 EDT Tel [phone], Service support ,
== END ==
LOC: MTLAB 16:25 → MTRAD 16:26
PROVIDERS: PCP Family Medicine; Referring Provider Family Medicine; Visit Provider Family Medicine
DX: M25.431 Effusion, right wrist (principal)
CPT/HCPCS: 73110

== ENCOUNTER → 2020-04-22 10:41 | Outpatient (CLI) | payer OTHER, SELFPAY ==
[2019-07-30 17:55] VITALS: BMI 30.7
[2019-10-13 13:09] VITALS: BMI 29.9
--- NOTE | 2020-04-22 10:41 | BI_ITS ---
MAMMOGRAPHY - BILATERAL SCREENING REASON FOR EXAM: Female, 59 years old. Routine annual screening examination. PERTINENT HISTORY: Non-contributory. TECHNIQUE: Digital bilateral breast vishnu (3D mammographic acquisition) in the CC and MLO projections. 2-D mediolateral oblique (MLO) and craniocaudad (CC) views of both breasts were obtained. CAD: Full Field Digital Mammography with Computer Added Detection was performed. COMPARISON: Comparison is made with prior study dated 11/14/2018. FINDINGS: Breast Composition: There are scattered areas of fibroglandular density. There are no dominant masses or suspicious calcifications. Stable benign-appearing bilateral axillary lymph nodes. No other significant abnormalities are identified. There has been no significant change since the prior study. BI/SCREEN MAMM (CAD) W/VISHNU BILAT IMPRESSION: Stable bilateral screening mammogram. Yearly follow-up mammogram recommended. (A) ASSESSMENT CATEGORY: Approximately 10% of breast cancers are not detected by mammography. A normal mammogram should not delay biopsy of a clinically suspicious abnormality. [id number] Electronically Signed: Duy Coppola, at 11:56 EDT , Service support ,
== END ==
PROVIDERS: PCP Family Medicine; Referring Provider Obstetrics & Gynecology; Visit Provider Obstetrics & Gynecology
DX: Z12.31 Encounter for screening mammogram for malignant neoplasm of breast (principal)
CPT/HCPCS: 77063; 77067

== ENCOUNTER → 2020-10-28 09:00 | Outpatient (CLI) | payer OTHER, SELFPAY ==
[2020-06-14 16:17] VITALS: BMI 34.3
--- NOTE | 2020-10-28 09:18 | RAD_ITS ---
INDICATION: VASOMOTOR FLUSHING EXAMINATION/TECHNIQUE: X-RAY - XR Chest 2 Views COMPARISON: 04/29/2019. FINDINGS: LINES/DEVICES: None. LUNGS: No consolidation, edema or effusion. No pneumothorax. MEDIASTINUM AND CARDIOVASCULAR STRUCTURES: Cardiac silhouette not enlarged. Central airways and mediastinal contour are unremarkable. BONES AND SOFT TISSUES: Unremarkable. RAD/Chest PA and Lateral IMPRESSION: No radiographic evidence of acute cardiopulmonary disease. Electronically Signed: Jeancarlos Arshad MD at 17:56 EDT , Service support ,
[2020-10-28 10:21] LABS: Erythrocyte Sedimentation Rate 12 mm/hr (0-30)
[2020-10-28 10:23] LABS: Absolute Lymphocyte Count 2.54 X10^3/uL (0.83-4.51); Absolute Neutrophil Count 3.1 X10^3/uL (2.0-7.7); Basophil# 0.05 X10^3/uL; Basophil% 0.8 % (0-1); Eosinophil# 0.15 X10^3/uL; Eosinophils% 2.4 % (0-5); Hematocrit 44.1 % (37-47); Hemoglobin 14.2 g/dL (12.0-15.0); Lymphocyte # 2.54 X10^3/ul (4.0); Lymphocyte % 40.4 % (19-41); Mean Corp Hgb Conc 32.2 g/dL (32-36); Mean Corpuscular Hgb 29.4 pg (27.0-32.0); Mean Corpuscular Volume 91.3 fL (81-99); Mean Platelet Vol. 9.8 fl (6.2-12.0); Monocyte# 0.44 X10^3/uL; NRBC Flagged by Analyzer 0 % (0-5); Neutrophil # 3.09 X10^3/uL (2.7-7.7); Neutrophil % 49.1 % (47-70); POSITIVE MORPHOLOGY YES; Platelet Count 394 K/mm3 (150-450); RBC Distribution Width CV 12.9 % (11.6-14.6); RBC Distribution Width SD 43.2 fl (35.1-43.9); Red Blood Count 4.83 M/mm3 (4.2-5.4); White Blood Count 6.3 K/mm3 (4.4-11.0)
[2020-10-28 10:25] LABS: Differential Indicated SCAN CRITERIA MET
[2020-10-28 10:49] LABS: Microalbumin,Random Urine 11.1 mg/L (NO RANGE EST.)
[2020-10-28 10:50] LABS: Reactive Lymphocyte 1+
[2020-10-28 11:21] LABS: ALB/GLOB Ratio 1.1 RATIO (0.9-2.4); AST(SGOT) 24 U/L (15-37); Alanine Aminotransfer ALT/SGPT 43 U/L (13-56); Albumin, Serum 4.2 g/dL (3.2-5.0); Alkaline Phosphatase 84 U/L (45-117); Anion Gap 7 (5-15); BUN 13 mg/dL (7-18); BUN/Creat Ratio 15.3 RATIO (10-20); CRP < 2.90 mg/L (0.0-3.0); Calcium,Total 9.2 mg/dL (8.5-10.1); Chloride 106 mmol/L (98-107); Creatinine, Serum 0.85 mg/dL (0.55-1.02); EST Glomerular Filtration Rate 72 mL/min (>60); Est Glom Filt Rate - Afr Amer 87 mL/min (>60); Globulin 3.8 g/dL (2.2-4.2); Glucose 93 mg/dL (74-106); Sodium Level 141 mmol/L (136-145); T4 Free Direct 0.87 ng/dL (0.76-1.46); Thyroid Stim Hormone (TSH) 3.52 uIU/mL (0.358-3.74)
[2020-10-29 13:06] LABS: ANTINUCLEAR ANTIBODIES DIRECT Negative (Negative)
== END ==
PROVIDERS: PCP Family Medicine; Referring Provider Family Medicine; Visit Provider Family Medicine
DX: I10 Essential (primary) hypertension (principal); R23.2 Flushing
CPT/HCPCS: 36415; 71046; 80053; 82043; 82570; 84439; 84443; 85025; 85652; 86038; 86140; 86480

== ENCOUNTER → 2020-11-24 08:58 | Outpatient (CLI) | payer OTHER, SELFPAY ==
[2020-06-14 16:17] VITALS: BMI 34.3
--- NOTE | 2020-11-24 08:59 | RAD_ITS ---
STUDY: X-RAY CHEST REASON FOR EXAM: Female, 60 years old. Productive cough. TECHNIQUE: PA and lateral views of the chest. COMPARISON: 10/28/2020 FINDINGS: The lungs are clear and expanded. There is no demonstrated pleural abnormality. Normal size heart. Normal mediastinum and alexandre. Normal visualized pulmonary arteries. There is atherosclerotic calcification of the aortic arch with tortuosity. There are diffuse degenerative changes of the visualized thoracic spine. There is degenerative osteoarthritis of the bilateral shoulders. There is no demonstrated abnormality of the visualized soft tissue structures of the upper abdomen. RAD/Chest PA and Lateral IMPRESSION: Degenerative changes, as described above. No demonstrated acute cardiopulmonary process. There is no major interval change. Electronically Signed: Jadiel Larose DO at 17:06 EDT Tel [phone], Service support ,
== END ==
PROVIDERS: PCP Family Medicine; Referring Provider Family Medicine; Visit Provider Family Medicine
DX: J20.9 Acute bronchitis, unspecified (principal); R09.89 Other specified symptoms and signs involving the circulatory and respiratory systems
CPT/HCPCS: 71046; 87633; 87635; U0002

== ENCOUNTER → 2020-12-16 | Outpatient (CLI) | payer OTHER, SELFPAY ==
[2020-06-14 16:17] VITALS: BMI 34.3
== END | disposition home or self-care (01) ==
LOC: LABSPEC 10:38
PROVIDERS: PCP Family Medicine; Referring Provider Family Medicine; Visit Provider Family Medicine
DX: J32.9 Chronic sinusitis, unspecified (principal)
CPT/HCPCS: 87070; 87205

== ENCOUNTER → 2021-02-16 15:11 | Outpatient (CLI) | payer OTHER, SELFPAY ==
[2021-02-07 15:51] VITALS: BMI 29.9
--- NOTE | 2021-02-16 15:13 | ECHOD_ITS ---
Reason For Study: AORTIC VALVE INSUFFICIENCY Procedure This was a 2D Doppler, Color Flow transthoracic echocardiogram. The study was technically difficult. Exam performed in department. Left Ventricle Normal LV size. Left ventricular systolic function is normal. The estimated ejection fraction is 65 %. No evidence for diastolic dysfunction. No regional wall motion abnormalities noted. Right Ventricle Normal RV size. Normal systolic function. Atria Normal left atrium. Normal right atrium. No doppler evidence for ASD. Mitral Valve There is no mitral annular calcification. Normal mitral valve. Trivial mitral valve insufficiency. Tricuspid Valve Normal tricuspid valve. Trivial tricuspid valve insufficiency. Right ventricular systolic pressure estimated to be 29 mmHg. Aortic Valve Trisinus/trileaflet aortic valve. Mild focal aortic valve calcification. Mild-Moderate (1-2+) aortic valve insufficiency. Pulmonic Valve The pulmonic valve is not well visualized. Great Vessels Mildly dilated aortic root. Pericardium/Pleural No pericardial effusion. MMode/2D Measurements & Calculations LVIDd: 4.5 cm IVSd: 1.2 cm LVOT diam: 2.0 cm LVIDs: 2.7 cm LVPWd: 1.2 cm LVOT area: 3.1 cm2 RVDd: 3.2 cm FS: 40.0 % Ao root diam: 3.6 cm LAV(MOD-bp): 41.8 ml LVAd ap4: 31.5 cm2 LAV(MOD-bp) Indexed: 21.1 ml/m2 LVLd ap4: 7.7 cm LAV(MOD-sp2): 50.0 ml EDV(MOD-sp4): 106.5 ml LAV(MOD-sp4): 30.8 ml EDV(sp4-el): 109.4 ml LVAs ap4: 15.7 cm2 LVLs ap4: 6.6 cm ESV(MOD-sp4): 31.6 ml ESV(sp4-el): 31.6 ml EF(MOD-sp4): 70.4 % EF(sp4-el): 71.1 % SV(MOD-sp4): 74.9 ml SV(sp4-el): 77.7 ml LA A4 area: 13.3 cm2 LA dimension(2D): 3.5 cm RA A4 area: 12.5 cm2 Time Measurements MV dec time: 0.30 sec Doppler Measurements & Calculations MV E max tigre: 62.4 cm/sec Lat Peak E' Tigre: 8.4 cm/sec Med Peak E' Tigre: 6.4 cm/sec MV A max tigre: 94.1 cm/sec E/E' lat: 7.4 E/E' med: 9.8 MV E/A: 0.66 Ao V2 max: 240.1 cm/sec AI max tigre: 464.0 cm/sec LV V1 max: 171.4 cm/sec Ao max P.1 mmHg AI max P.1 mmHg LV V1 max P.8 mmHg Ao V2 mean: 163.8 cm/sec LV V1 mean P.9 mmHg Ao mean P.3 mmHg AI dec slope: 252.7 cm/sec2 LV V1 mean: 110.4 cm/sec Ao V2 VTI: 51.9 cm AI P1/2t: 537.7 msec LV V1 VTI: 40.3 cm THIAGO(I,D): 2.4 cm2 THIAGO(V,D): 2.2 cm2 SV(LVOT): 123.3 ml PA V2 max: 102.5 cm/sec TR max tigre: 254.4 cm/sec TR max P.9 mmHg ECHO/Echo Complete Interpretation Summary The study was technically difficult. Left ventricular systolic function is normal. The estimated ejection fraction is 65 %. Trivial mitral valve insufficiency. Trivial tricuspid valve insufficiency. Mild focal aortic valve calcification. Mild-Moderate (1-2+) aortic valve insufficiency. Mildly dilated aortic root. Right ventricular systolic pressure estimated to be 29 mmHg. No evidence for diastolic dysfunction. Ordering Physician: Johnnie Taylor Referring Physician: NITO DAVIES Performed By: Sara Adrian RDCS
== END ==
PROVIDERS: PCP Family Medicine; Referring Provider Internal Medicine Cardiovascular Disease; Visit Provider Internal Medicine Cardiovascular Disease
DX: I35.1 Nonrheumatic aortic (valve) insufficiency (principal); E78.5 Hyperlipidemia, unspecified; I10 Essential (primary) hypertension
CPT/HCPCS: 93306

== ENCOUNTER → 2021-04-25 14:30 | Outpatient (CLI) | payer OTHER, SELFPAY ==
[2020-04-22 11:20] VITALS: BMI 29.9
--- NOTE | 2021-04-25 14:34 | BI_ITS ---
MAMMOGRAPHY - BILATERAL SCREENING REASON FOR EXAM: Female, 60 years old. Routine annual screening examination. PERTINENT HISTORY: Non-contributory. TECHNIQUE: Digital bilateral breast vishnu (3D mammographic acquisition) in the CC and MLO projections. 2-D mediolateral oblique (MLO) and craniocaudad (CC) views of both breasts were obtained. CAD: Full Field Digital Mammography with Computer Added Detection was performed. COMPARISON: Comparison is made with prior study dated 04/22/2020 and 11/14/2018. FINDINGS: Breast Composition: There are scattered areas of fibroglandular density. There are no dominant masses or suspicious calcifications. Stable small benign appearing bilateral axillary nodes. No other significant abnormalities are identified. There has been no significant change since the prior study. BI/SCRN MAMM (CAD)W/VISHNU BILAT IMPRESSION: Stable bilateral screening mammogram. Yearly follow-up mammogram recommended. (A) ASSESSMENT CATEGORY: BIRADS Category 2: Benign. A letter regarding these results will be sent to the patient by the facility within 30 days. Approximately 10% of breast cancers are not detected by mammography. A normal mammogram should not delay biopsy of a clinically suspicious abnormality. [id number] Electronically Signed: Duy Coppola MD at 15:32 EDT , Service support ,
== END ==
PROVIDERS: PCP Family Medicine; Referring Provider Obstetrics & Gynecology; Visit Provider Obstetrics & Gynecology
DX: Z12.31 Encounter for screening mammogram for malignant neoplasm of breast (principal)
CPT/HCPCS: 77063; 77067

== ENCOUNTER → 2021-06-28 | Outpatient (CLI) | payer OTHER, SELFPAY | END | disposition home or self-care (01) | LOC: LABSPEC 11:15 | PROVIDERS: PCP Family Medicine; Visit Provider Family Medicine | DX: R39.9 Unspecified symptoms and signs involving the genitourinary system (principal) | CPT/HCPCS: 87086; 87088 ==

== ENCOUNTER → 2021-07-28 14:18 | Outpatient (CLI) | payer OTHER, SELFPAY ==
--- NOTE | 2021-07-28 14:21 | RAD_ITS ---
STUDY: X-RAY - LUMBAR SPINE REASON FOR EXAM: Female, 60 years old. pt began to fall down steps, grabbed railing and twisted back 2 days ago, back pain nowR BACK STRAIN TECHNIQUE: XR Spine Lumbar Comp W/ Bending Min 6 Views COMPARISON: None FINDINGS: Normal lumbar lordosis. There is a dextroscoliosis of the lumbar spine. There is a normal alignment of the vertebrae. There is multilevel endplate spondylosis of the lumbar vertebrae. There is multi-level degenerative disc disease with multi-level disc space narrowing. There are atherosclerotic vascular calcifications. The soft tissue structures are unremarkable. RAD/L/S Spine w Bend Min 6 Vw IMPRESSION: There are no acute findings. Electronically Signed: Suresh Mathis MD at 16:59 EST , Service support ,
== END ==
PROVIDERS: PCP Family Medicine; Referring Provider Family Medicine; Visit Provider Family Medicine
DX: S39.012A Strain of muscle, fascia and tendon of lower back, initial encounter (principal)
CPT/HCPCS: 72114

== ENCOUNTER → 2022-02-20 | Outpatient (CLI) | payer OTHER, SELFPAY ==
--- NOTE | 2022-02-20 11:45 | RAD_ITS ---
STUDY: AP ABDOMEN AND PELVIS X-RAY SERIES OF 1146 HOURS ON 02/20/2022 REASON FOR EXAM: 61-year-old female with symptoms of a gastroenteritis. TECHNIQUE: 4 views of the abdomen and pelvis were obtained. COMPARISON: None. FINDINGS: Mild demineralization. Mild lumbar dextroscoliosis. No abdominal organomegaly. Findings may be indicative of mild constipation. No abnormal intra-abdominal calcifications or collections of air. Normal lung bases. RAD/Abd Inc Decub and/or Erect IMPRESSION: 1. No abdominal organomegaly. 2. No abnormal intra-abdominal calcifications or collections of air. 3. Findings suggestive of mild constipation. 4. Mild demineralization and a mild lumbar dextroscoliosis. Electronically Signed: Jw Fink MD at 17:31 EDT ,
[2022-02-20 14:50] LABS: Absolute Lymphocyte Count 2.89 X10^3/uL (0.83-4.51); Absolute Neutrophil Count 5.2 X10^3/uL (2.0-7.7); Basophil# 0.07 X10^3/uL; Basophil% 0.8 % (0-1); Eosinophil# 0.09 X10^3/uL; Hematocrit 46.2 % (37-47); Hemoglobin 14.8 g/dL (12.0-15.0); Lymphocyte # 2.89 X10^3/ul (0.83-4.51); Lymphocyte % 32.8 % (19-41); Mean Corpuscular Hgb 29.4 pg (27.0-32.0); Mean Corpuscular Volume 91.7 fL (81-99); Mean Platelet Vol. 9.7 fl (6.2-12.0); Monocyte# 0.53 X10^3/uL; NRBC Flagged by Analyzer 0 % (0-5); Neutrophil % 58.9 % (47-70); Platelet Count 393 K/mm3 (150-450); RBC Distribution Width CV 13.4 % (11.6-14.6); RBC Distribution Width SD 44.8 fl (35.1-43.9); Red Blood Count 5.04 M/mm3 (4.2-5.4); White Blood Count 8.8 K/mm3 (4.4-11.0)
[2022-02-20 15:07] LABS: AST(SGOT) 23 U/L (15-37); Alanine Aminotransfer ALT/SGPT 40 U/L (13-56); Albumin, Serum 4.1 g/dL (3.2-5.0); Alkaline Phosphatase 83 U/L (45-117); Anion Gap 9 (5-15); BUN 10 mg/dL (7-18); BUN/Creat Ratio 12.3 RATIO (10-20); Calcium,Total 9.3 mg/dL (8.5-10.1); Chloride 105 mmol/L (98-107); Creatinine, Serum 0.81 mg/dL (0.55-1.02); EST Glomerular Filtration Rate 76 mL/min (>60); Est Glom Filt Rate - Afr Amer 92 mL/min (>60); Glucose 93 mg/dL (74-106); Magnesium 2.5 mg/dL (1.6-2.6); Potassium 3.9 mmol/L (3.5-5.1); Protein, Total 8.1 g/dL (6.4-8.2); Sodium Level 141 mmol/L (136-145)
== END | disposition home or self-care (01) ==
PROVIDERS: PCP Family Medicine; Referring Provider Family Medicine; Visit Provider Family Medicine
DX: K52.9 Noninfective gastroenteritis and colitis, unspecified (principal); R42 Dizziness and giddiness
CPT/HCPCS: 36415; 74019; 80053; 83735; 85025; 86140

== ENCOUNTER → 2022-03-23 | Outpatient (CLI) | payer OTHER, SELFPAY ==
[2022-03-23 18:05] LABS: ALB/GLOB Ratio 0.9 RATIO (0.9-2.4); AST(SGOT) 26 U/L (15-37); Alanine Aminotransfer ALT/SGPT 47 U/L (13-56); Albumin, Serum 3.7 g/dL (3.2-5.0); Alkaline Phosphatase 83 U/L (45-117); Anion Gap 5 (5-15); BUN 16 mg/dL (7-18); BUN/Creat Ratio 16.2 RATIO (10-20); Calcium,Total 8.5 mg/dL (8.5-10.1); Chloride 108 mmol/L (98-107); Cholesterol 231 mg/dL (200); Creatinine, Serum 0.99 mg/dL (0.55-1.02); EST Glomerular Filtration Rate 60 mL/min (>60); Est Glom Filt Rate - Afr Amer 73 mL/min (>60); Globulin 3.9 g/dL (2.2-4.2); Glucose 119 mg/dL (74-106); High Density Lipoprotein 49 mg/dL; Potassium 3.6 mmol/L (3.5-5.1); Protein, Total 7.6 g/dL (6.4-8.2); Sodium Level 140 mmol/L (136-145); Triglycerides 194 mg/dL; Very Low Density Lipoprotein 39 mg/dL (5-40)
== END | disposition home or self-care (01) ==
LOC: MTLAB 16:25
PROVIDERS: PCP Family Medicine; Referring Provider Family Medicine; Visit Provider Family Medicine
DX: I10 Essential (primary) hypertension (principal); Z13.220 Encounter for screening for lipoid disorders
CPT/HCPCS: 36415; 80053; 80061

== ENCOUNTER → 2022-04-27 | Outpatient (CLI) | payer OTHER, SELFPAY ==
--- NOTE | 2022-04-27 07:36 | BI_ITS ---
MAMMOGRAPHY - BILATERAL SCREENING REASON FOR EXAM: Female, 61 years old. Routine annual screening examination. PERTINENT HISTORY: Non-contributory. TECHNIQUE: Digital bilateral breast vishnu (3D mammographic acquisition) in the CC and MLO projections. 2-D mediolateral oblique (MLO) and craniocaudad (CC) views of both breasts were obtained. CAD: Full Field Digital Mammography with Computer Added Detection was performed. COMPARISON: Comparison is made with prior study dated 04/25/2021 and 04/22/2020. FINDINGS: Breast Composition: There are scattered areas of fibroglandular density. There are no dominant masses or suspicious calcifications. Stable small benign-appearing bilateral axillary lymph nodes. No other significant abnormalities are identified. There has been no significant change since the prior study. BI/SCRN MAMM (CAD)W/VISHNU BILAT IMPRESSION: Stable bilateral screening mammogram. Yearly follow-up mammogram recommended. (A) ASSESSMENT CATEGORY: BIRADS Category 2: Benign. A letter regarding these results will be sent to the patient by the facility within 30 days. Approximately 10% of breast cancers are not detected by mammography. A normal mammogram should not delay biopsy of a clinically suspicious abnormality. [id number] Electronically Signed: Duy Coppola MD at 8:47 EDT ,
[2022-05-03 13:04] LABS: HPV APTIMA, High Risk Negative (Negative)
== END | disposition home or self-care (01) ==
PROVIDERS: PCP Family Medicine; Referring Provider Obstetrics & Gynecology; Visit Provider Obstetrics & Gynecology
DX: Z12.31 Encounter for screening mammogram for malignant neoplasm of breast (principal); Z12.4 Encounter for screening for malignant neoplasm of cervix
CPT/HCPCS: 77063; 77067; 87624; 88175; G0145

== ENCOUNTER → 2022-05-24 | Outpatient (CLI) | payer OTHER, SELFPAY ==
--- NOTE | 2022-05-24 13:34 | US_ITS ---
STUDY: ABDOMINAL ULTRASOUND REASON FOR EXAM: Female, 61 years old. hx of bowel extrusion as child. full abdominal ultrasound desire -- pain TECHNIQUE: Transabdominal ultrasound was performed with real-time and static schafer scale imaging. TECHNICAL QUALITY: Adequate. COMPARISON: None. FINDINGS: Liver: The liver measures 16.8 cm. There is diffusely increased echogenicity of the liver. The bile ducts are within normal limits. There is hepatic color flow. The direction of portal flow is hepatopetal. There is no demonstrated mass lesion. Portal vein measurement: Gallbladder: Normal distended gallbladder. The gallbladder wall measures 1.3 mm. There is a negative sonographic Stevenson''s sign. There is no pericholecystic fluid. There are no gallstones. Common Bile Duct (C.B.D.): The common bile duct measures 3.4 mm. Pancreas: Normal size of the head, body and tail of the pancreas. There is normal echogenicity of the pancreas. There is no demonstrated pancreatic mass or cyst. Spleen: Normal size of the spleen. The spleen measures 9.9 x 4.3 x 4.2 cm. Right Kidney: Normal size of the right kidney. The right kidney measures 11.5 x 4.9 x 4.4 cm. Normal renal cortex. The right cortex measures 1.5 cm. There is no demonstrated renal mass or cyst. There is no right hydronephrosis. Left Kidney: Normal size of the left kidney. The left kidney measures 11 x 5 x 5.8 cm. Normal renal cortex. The left cortex measures 1.4 cm. There is no demonstrated renal mass or cyst. There is no left hydronephrosis. Aorta: No evidence for aortic aneurysm I.V.C.: The IVC is patent. There is no ascites. US/Abdomen Complete IMPRESSION: Enlarged nonspecific fatty infiltrated liver. Otherwise normal study Electronically Signed: Jeovanny Jacques MD at 22:27 EDT ,
== END | disposition home or self-care (01) ==
LOC: US 13:32
PROVIDERS: PCP Family Medicine; Referring Provider Family Medicine; Visit Provider Family Medicine
DX: R10.11 Right upper quadrant pain (principal)
CPT/HCPCS: 76700

== ENCOUNTER → 2022-08-23 | Outpatient (CLI) | payer OTHER, SELFPAY | END | disposition home or self-care (01) | LOC: LABSPEC 12:47 | PROVIDERS: PCP Family Medicine; Referring Provider Family Medicine; Visit Provider Family Medicine | DX: J02.9 Acute pharyngitis, unspecified (principal) | CPT/HCPCS: 87070; 87077 ==

== ENCOUNTER 2022-11-21 12:24 | Emergency (ER) | payer OTHER, SELFPAY ==
[2022-11-21 12:25] VITALS: BP 158/89; PULSE 90; RESP 18; TEMP 35.5; O2SAT 100; BMI 29.9
--- NOTE | 2022-11-21 12:39 | US_ITS ---
EXAM: US ABDOMEN LIMITED, RIGHT UPPER QUADRANT CLINICAL INDICATION: PAIN TECHNIQUE: Real-time ultrasound of the right upper quadrant with image documentation. This report was created using [employer] report generation technology. COMPARISON: None. FINDINGS: LIVER: Normal. There is normal echotexture. No focal hepatic lesion. No intrahepatic biliary ductal dilation. GALLBLADDER: Normal. No shadowing gallstone. No gallbladder wall thickening is demonstrated. No pericholecystic fluid. Negative sonographic Stevenson''s sign. COMMON BILE DUCT: Unremarkable as visualized. The proximal common bile duct is within normal limits for the patient''s age. PANCREAS: Unremarkable as visualized. No focal abnormality is demonstrated in the pancreas. No pancreatic ductal dilatation. RIGHT KIDNEY: Normal. There is no hydronephrosis. No shadowing calculus. No focal lesion or perinephric collection is demonstrated. US/Gallbladder IMPRESSION: Normal right upper quadrant ultrasound. Electronically Signed: Zion Domínguez MD at 14:21 EDT ,
--- NOTE | 2022-11-21 12:49 | EDS_ITS ---
HPI <NORBERT Mann - Last Filed: 11/21/22 15:16> History of Present Illness Chief Complaint: Abd Pain Narrative Narrative: 62-year-old female with history of hypertension, hyperlipidemia, obesity who presents to the emergency department for 1 day of right upper quadrant abdominal pain. Patient states that she had a sausage sandwich last evening, has not ate anything since. Patient states the pain started in her right upper quadrant she described it as dull however over the last few hours it has been more sharp and more intense. Patient states it does radiated around the right flank. She denies any fever or chills. Positive for nausea PFSH <NORBERT Mann - Last Filed: 11/21/22 15:16> PFSH Medical History Abnormal EKG Dyspnea on exertion Essential hypertension Fatigue First degree AV block Nonrheumatic aortic valve insufficiency Obesity Prolonged QT interval SBO (small bowel obstruction) Small bowel obstruction Home Medications potassium chloride 20 mEq tablet,extended release(part/cryst) (Klor-Con M) 20 meq PO DAILY #90 tabs 06/14/20 [Rx Last Taken Unknown] olmesartan 40 mg tablet 20 mg PO DAILY 08/30/21 [History Last Taken Unknown] clobetasol 0.05 % topical ointment See Rx Instructions .Route .COMPLEX #30 grams 05/09/22 [Rx Last Taken Unknown] Allergy/AdvReac Type Severity Reaction Status Date / Time hydrochlorothiazide AdvReac Severe SEVERE Verified 11/21/22 12:28 HYPOKALEMIA, hospitalized for it bee venom protein (honey bee) AdvReac Swelling Verified 11/21/22 12:28 Family History Uncle Diabetes Aunt Diabetes Surgical History H/O total hysterectomy History of appendectomy History of bowel resection History of right and left heart catheterization (02/10/19) Social History (Updated 04/27/22 @ 08:07 by Jina Willis) Smoking Status: Former smoker quit date: 08/13/12 pack-years: 10 alcohol intake: current details: social substance use type: does not use caffeine: Yes what type of physical activity do you participate in: bicycling and yoga frequency: 5-6 times per week seatbelt use: always do you feel safe at home: Yes 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 <NORBERT Mann - Last Filed: 11/21/22 15:16> ROS ED ROS Narrative Constitutional: Negative for fever, chills, weight loss, weakness Eyes: Negative for vision loss, vision change, double vision ENT: Negative for any sore throat, ear pain, congestion Cardiovascular: Negative for any chest pain, tightness, palpitations Respiratory: Negative for any cough, sputum production, hemoptysis, dyspnea, dyspnea on exertion, orthopnea Gastrointestinal: Negative for any vomiting, diarrhea, constipation, blood in stool, blood in vomit. Positive right upper quad abdominal pain, nausea : Negative for any urinary frequency, dysuria, retention, blood in urine Muscle skeletal: Negative for any muscle joint pain, stiffness, myalgias, arthralgias, neck pain, back pain Neurological: Negative for any headache, syncope, numbness or tingling, dizziness Skin: Negative for any rashes, lumps, itching, abrasions, lacerations Psychiatric: Negative for any depression, anxiety, stress, suicidal ideation, homicidal ideation Hematologic: Negative for any easy bruising, excessive bruising, easy bleeding Allergies: Negative for any eczema, hives, rash EXAM <NORBERT Mann - Last Filed: 11/21/22 15:16> Physical Exam Narrative Exam Narrative: Vital signs reviewed. Patient does appear uncomfortable, patient has pain to the right upper quadrant. HEET: Head normocephalic atraumatic, TMs clear bilaterally. Posterior pharynx is clear, moist mucous membranes. Nares clear bilaterally. Neck: Supple with no lymphadenopathy or tenderness. No signs of meningismus, negative jolt sign. Cardiac: Regular rate and rhythm no murmurs gallops or rubs, equal peripheral pulses bilaterally. Respiratory: Lungs clear to auscultation bilaterally. No chest tenderness. Abdomen: Soft, nondistended. No abdominal bruit or pulsatile masses. No hepatosplenomegaly. Patient has pain to the right upper quadrant, epigastric area. Positive Stevenson sign. Active bowel sounds in all quadrants. When pressing to other areas of the abdomen, patient states the pain is just worse in the right upper quadrant Extremities: No peripheral edema, no signs of gross trauma or deformity. Active full range of motion of all extremities. Neuro: Cranial nerves II through XII intact, no focal neurological deficits. Skin: Clean dry and intact with no rash, purpura, petechiae, vesicles or pustules. Backs/flank: No CVA tenderness, no midline spinal tenderness, no deformity. Psych: Normal mood and affect. No SI, HI or acute psychosis. Const Vital Signs: 11/21/22 12:25 Temperature 96 F L Temperature Source Temporal Pulse Rate 90 Respiratory Rate 18 Blood Pressure 158/89 H Blood Pressure Mean 112 Pulse Ox 100 Oxygen Delivery Method Room Air Positive well nourished and well developed General Appearance ED: well developed <Dr. Lloyd Salazar MD - Last Filed: 11/21/22 14:34> Physical Exam Const Vital Signs: 11/21/22 12:25 Temperature 96 F L Temperature Source Temporal Pulse Rate 90 Respiratory Rate 18 Blood Pressure 158/89 H Blood Pressure Mean 112 Pulse Ox 100 Oxygen Delivery Method Room Air MDM <NORBERT Mann - Last Filed: 11/21/22 15:16> [facility] Lab Data Labs: Laboratory Results - last 24 hr 11/21/22 11/21/22 13:00 13:17 WBC 11.4 H RBC 4.96 Hgb 14.7 Hct 47.2 H MCV 95.2 MCH 29.6 MCHC 31.1 L RDW Std Deviation 46.9 H RDW Coeff of Bhavya 13.4 Plt Count 384 MPV 9.8 Immature Gran % (Auto) 0.500 Neut % (Auto) 70.5 H Lymph % (Auto) 20.4 Woodruff % (Auto) 7.1 Eos % (Auto) 0.8 Baso % (Auto) 0.7 Absolute Neuts (auto) 8.1 H Absolute Lymphs (auto) 2.33 Nucleated RBC % 0 Sodium 139 Potassium 3.6 Chloride 107 Carbon Dioxide 25.0 Anion Gap 7 BUN 9 Creatinine 0.78 Estim Creat Clear Calc 70.86 Est GFR (MDRD) Af Amer 96 Est GFR (MDRD) Non-Af 79 BUN/Creatinine Ratio 11.6 Glucose 99 Calcium 9.3 Total Bilirubin 0.50 Direct Bilirubin 0.12 AST 20 ALT 30 Alkaline Phosphatase 84 Total Protein 7.5 Albumin 4.0 Globulin 3.5 Lipase 37 Radiography Diagnostic Testing: Clinical Impression(s) from Imaging Studies Gallbladder Ultrasound 11/21/22 12:39 IMPRESSION: Normal right upper quadrant ultrasound. Electronically Signed: Zion Domínguez MD at 14:21 EDT , Treatment and Re-Evaluation :: All radiologic examinations were read, reviewed by the emergency department attending. From these reads, a plan of care will be put in place. Patient arrives in mild distress secondary to right upper quadrant abdominal pain. Patient's physical examination was concerning for acute cholecystitis. Patient did receive laboratory values, patient's CBC showed leukocytosis with a white blood count 11.4. Patient's chemistries liver panel was grossly unremarkable. Patient's right upper quadrant ultrasound was negative for any acute process, it showed a normal right upper quadrant ultrasound. Patient received IV fluids, IV Zofran, IV Dilaudid. On reassessment, the patient still had significant pain. Patient then will be given an CT scan of the abdomen pelvis with IV contrast this will be to rule out any other abdominal process as well as diverticulitis, bowel obstruction. <Dr. Lloyd Salazar MD - Last Filed: 11/21/22 14:34> [facility] Narrative Medical decision making narrative: I have personally performed a face to face assessment of the patient and have reviewed the CAROL ANN Note. I performed a substantive portion of the visit including all aspects of the following. My mitchell findings include: History is [62-year-old female that I am evaluate with our nurse practitioner. Patient complaining of right upper quadrant abdominal pain that began this morning. Denies fever. Denies any history of gallbladder disease. Still does have her gallbladder. No dysuria.] Exam is [62-year-old female. Vital signs are stable and afebrile. HEENT exam unremarkable. Lungs clear. Heart regular rhythm. Abdomen soft nondistended normal bowel sounds she does have right upper quadrant and right side tenderness. No peritoneal signs. No pulsatile mass. No distention consistent with an obstruction. Moving all 4 extremities. Nontender no edema. Neurologically awake and alert. Back nontender.] Medical Decision Making [62-year-old with right-sided abdominal pain primarily right upper quadrant. We will start with screening abdominal labs with the ultrasound.] Other additions or changes: [Ultrasound was read as normal. Labs are basically unremarkable other than a white count of 11.4. On repeat exam her pain seem more diffuse so we ordered a CT of the abdomen pelvis with IV contrast.] History & Record Review Discussion w/independent historian: Patient Lab Data Attestation: I reviewed the patient's lab results. Lab results narrative: CBC shows white count 9.4. H&H 14 and 47. Platelets 384. Electrolytes unremarkable. Liver enzymes and lipase unremarkable. Gallbladder ultrasound as read by the radiologist was unremarkable. Labs: Laboratory Results - last 24 hr 11/21/22 11/21/22 13:00 13:17 WBC 11.4 H RBC 4.96 Hgb 14.7 Hct 47.2 H MCV 95.2 MCH 29.6 MCHC 31.1 L RDW Std Deviation 46.9 H RDW Coeff of Bhavya 13.4 Plt Count 384 MPV 9.8 Immature Gran % (Auto) 0.500 Neut % (Auto) 70.5 H Lymph % (Auto) 20.4 Woodruff % (Auto) 7.1 Eos % (Auto) 0.8 Baso % (Auto) 0.7 Absolute Neuts (auto) 8.1 H Absolute Lymphs (auto) 2.33 Nucleated RBC % 0 Sodium 139 Potassium 3.6 Chloride 107 Carbon Dioxide 25.0 Anion Gap 7 BUN 9 Creatinine 0.78 Estim Creat Clear Calc 70.86 Est GFR (MDRD) Af Amer 96 Est GFR (MDRD) Non-Af 79 BUN/Creatinine Ratio 11.6 Glucose 99 Calcium 9.3 Total Bilirubin 0.50 Direct Bilirubin 0.12 AST 20 ALT 30 Alkaline Phosphatase 84 Total Protein 7.5 Albumin 4.0 Globulin 3.5 Lipase 37 Radiography Diagnostic Testing: Clinical Impression(s) from Imaging Studies Gallbladder Ultrasound 11/21/22 12:39 IMPRESSION: Normal right upper quadrant ultrasound. Electronically Signed: Zion Domínguez MD at 14:21 EDT , Discharge Plan Triage Chief Complaint: Abd Pain Other Complaint: Chest Other ED Midlevel Provider: Johnnie Sequeira ED Provider: Lloyd Salazar Dx/Rx/DC Orders Prescriptions: No Action potassium chloride [Klor-Con M20] 20 mEq tablet,ER particles/crystals 20 meq PO DAILY Qty: 90 1RF olmesartan 40 mg tablet 20 mg PO DAILY clobetasol 0.05 % ointment See Rx Instructions .ROUTE .COMPLEX Qty: 30 3RF Dose Instruction: APPLY TOPICALLY TO AFFECTEDAREA AT BEDTIME. MASSAGE IN GENTLY Rx Instructions: APPLY TOPICALLY TO AFFECTEDAREA AT BEDTIME. MASSAGE IN GENTLY Primary Care Provider: Benny Villalobos Referrals: Benny Villalobos MD [Primary Care Provider] -
[2022-11-21] MEDS: HYDROmorphone 1 MG/ML Syringe 0.5 MG IV (13:01)
[2022-11-21] MEDS: Ondansetron 4 MG/2 ML Vial IV (13:01)
[2022-11-21] MEDS: 0.9% Normal Saline 1,000 ML 1000 ML IV (13:02)
[2022-11-21 13:19] LABS: Absolute Lymphocyte Count 2.33 X10^3/uL (0.83-4.51); Absolute Neutrophil Count 8.1 X10^3/uL (2.0-7.7); Basophil# 0.08 X10^3/uL; Basophil% 0.7 % (0-1); Eosinophil# 0.09 X10^3/uL; Eosinophils% 0.8 % (0-5); Hematocrit 47.2 % (37-47); Hemoglobin 14.7 g/dL (12.0-15.0); Lymphocyte # 2.33 X10^3/ul (0.83-4.51); Lymphocyte % 20.4 % (19-41); Mean Corp Hgb Conc 31.1 g/dL (32-36); Mean Corpuscular Hgb 29.6 pg (27.0-32.0); Mean Corpuscular Volume 95.2 fL (81-99); Mean Platelet Vol. 9.8 fl (6.2-12.0); Monocyte# 0.81 X10^3/uL; Monocyte% 7.1 % (0-10); NRBC Flagged by Analyzer 0 % (0-5); Neutrophil # 8.07 X10^3/uL (2.7-7.7); Neutrophil % 70.5 % (47-70); Platelet Count 384 K/mm3 (150-450); RBC Distribution Width CV 13.4 % (11.6-14.6); RBC Distribution Width SD 46.9 fl (35.1-43.9); Red Blood Count 4.96 M/mm3 (4.2-5.4); White Blood Count 11.4 K/mm3 (4.4-11.0)
[2022-11-21 13:38] LABS: AST(SGOT) 20 U/L (15-37); Alanine Aminotransfer ALT/SGPT 30 U/L (13-56); Alkaline Phosphatase 84 U/L (45-117); Anion Gap 7 (5-15); BUN 9 mg/dL (7-18); BUN/Creat Ratio 11.6 RATIO (10-20); Bilirubin, Direct 0.12 mg/dL (0.00-0.30); Calcium,Total 9.3 mg/dL (8.5-10.1); Chloride 107 mmol/L (98-107); Creatinine, Serum 0.78 mg/dL (0.55-1.02); EST Glomerular Filtration Rate 79 mL/min (>60); Est Glom Filt Rate - Afr Amer 96 mL/min (>60); Estimated Creatinine Clearance 70.86 ml/min; Globulin 3.5 g/dL (2.2-4.2); Glucose 99 mg/dL (74-106); Lipase 37 U/L (13-75); Potassium 3.6 mmol/L (3.5-5.1); Protein, Total 7.5 g/dL (6.4-8.2); Sodium Level 139 mmol/L (136-145)
--- NOTE | 2022-11-21 14:27 | CT_ITS ---
EXAM: CT ABDOMEN AND PELVIS WITH INTRAVENOUS CONTRAST CLINICAL INDICATION: abdominal pain TECHNIQUE: Helically acquired images were obtained of the abdomen and pelvis with intravenous contrast. This CT exam was performed using one or more of the following dose reduction techniques: automated exposure control, adjustment of the mA and/or kV according to patient size, and/or use of iterative reconstruction technique. This report was created using [employer] report generation technology. CONTRAST: IV 100mL Isovue-300 COMPARISON: CT Abdomen Pelvis dated 07/30/2019 FINDINGS: LOWER THORAX: Normal. Lung bases are clear. No cardiomegaly. No pericardial effusion. ABDOMEN: LIVER: Normal. Homogeneous. No focal mass. GALLBLADDER AND BILE DUCTS: Normal. No calcified gallstones. No gallbladder distention or wall edema. No intra- or extrahepatic biliary ductal dilation. PANCREAS: Normal. No focal cystic or solid mass. SPLEEN: Normal. Normal size without focal cystic or solid mass. ADRENALS: Normal. No nodules. KIDNEYS AND URETERS: Normal. Normal renal size and position. No hydronephrosis. STOMACH AND BOWEL: Localized bowel wall thickening and adjacent fat stranding involving the proximal transverse colon consistent with acute diverticulitis. No evidence of abscess or perforation. PELVIS: APPENDIX: No evidence of acute appendicitis. BLADDER: Normal. REPRODUCTIVE: Uterus is absent. ABDOMEN and PELVIS: INTRAPERITONEAL SPACE: Normal. No ascites or other fluid collection. No free air. BONES/JOINTS: No suspicious lytic or blastic abnormality. SOFT TISSUES: Normal. No discrete abdominal or pelvic wall hernia. VASCULATURE: Normal. Abdominal aorta is non-dilated. LYMPH NODES: Normal. No enlarged lymph nodes. CT/Abdomen/Pelvis W IV Cont ONLY IMPRESSION: Acute diverticulitis of the proximal transverse colon without evidence of abscess or perforation. Electronically Signed: Zion Domínguez MD at 15:39 EDT ,
[2022-11-21 14:45] VITALS: BP 136/82; PULSE 66; RESP 16; O2SAT 98
[2022-11-21] MEDS: metroNIDAZOLE 500 MG Tablet PO (16:11)
[2022-11-21] MEDS: Ciprofloxacin 500 MG Tablet PO (16:11)
== END 2022-11-21 16:36 | disposition home or self-care (01) ==
PROVIDERS: Nurse Practitioner; Emergency Provider Emergency Medicine; PCP Family Medicine; Visit Provider Emergency Medicine
DX: R10.11 Right upper quadrant pain (principal); E78.5 Hyperlipidemia, unspecified; I10 Essential (primary) hypertension; R11.0 Nausea; E66.9 Obesity, unspecified; Z87.891 Personal history of nicotine dependence; Z90.49 Acquired absence of other specified parts of digestive tract; Z90.710 Acquired absence of both cervix and uterus; Z79.899 Other long term (current) drug therapy
CPT/HCPCS: 36415; 74177; 76705; 80048; 80076; 83690; 85025; 96361; 96374; 96375; 99283; J7030; Q9967; A4216; J2405

== ENCOUNTER 2022-11-23 12:49 | Inpatient (IN) | payer OTHER, SELFPAY ==
[2022-11-23 12:50] VITALS: BP 113/71; PULSE 101; RESP 18; TEMP 35.8; O2SAT 97; BMI 29.1
[2022-11-23 13:11] VITALS: BP 113/71; PULSE 101; RESP 18; TEMP 35.8; O2SAT 97
--- NOTE | 2022-11-23 13:14 | CT_ITS ---
STUDY: CT ABDOMEN AND PELVIS WITH CONTRAST REASON FOR EXAM: Female, 62 years old. Abdominal pain and fever RADIATION DOSAGE (If Supplied By Facility): CTDIvol = ( 11.38 ) mGy, DLP = ( 703.38 ) mGycm TECHNIQUE: Transaxial images were obtained from the dome of the diaphragm to the symphysis pubis without oral contrast. IV 100mL Isovue-370 was administered. Sagittal and coronal images were reconstructed. Individualized dose optimization techniques were used for this CT. COMPARISON: 11/21/2012 FINDINGS: The visualized lung bases are unremarkable. The visualized portions of the heart are within normal limits. Normal liver. Normal gallbladder and extrahepatic biliary system. Normal spleen. Normal pancreas. Normal bilateral adrenal glands. Normal right kidney. Normal left kidney. Normal visualized stomach. Previously noted acute diverticulitis in the proximal transverse colon has slightly worsened in appearance since the previous study with more of the transverse colon involved in an increase in pericolonic inflammatory stranding. There is no evidence of abscess but there is now evidence to suspect microperforation. Persistent colonic diverticulosis throughout the remainder the colon critically in the sigmoid colon without other evidence of acute diverticulitis. Nondistended fluid-filled small bowel loops are noted consistent with a focal ileus. Appendix not visualized. Normal abdominal aorta. Normal inferior vena cava. Normal retroperitoneum. Normal urinary bladder. Normal abdominal wall. Mild degenerative bony changes CT/Abdomen/Pelvis W IV Cont ONLY IMPRESSION: Interval worsening of previously noted acute diverticulitis involving the proximal transverse colon, the amount of colon involvement appears to have increased as has the amount of pericolonic inflammatory stranding and there is also now evidence to suspect microperforation although there is no organized abscess. Scattered colonic diverticulosis elsewhere particularly in the sigmoid colon without other evidence of acute diverticulitis. Small bowel ileus No suspicious solid organ abnormality Electronically Signed: Alexsander Clarke MD at 14:11 EDT ,
--- NOTE | 2022-11-23 13:15 | EDS_ITS ---
HPI HPI - GI History of Present Illness Chief Complaint: Abd Pain Informant: patient Abdominal Pain/Flank Pain Onset: Days (3) Context: Sudden Onset Timing: Continuous Quality: Aching Location: RUQ Current Severity: Severe Maximum Severity: Severe Worsened by: Movement Relieved by: Nothing Nausea/Vomiting/Emesis GI Symptom: Positive for Nausea; Negative for Vomiting Diarrhea/Melena/Hematochezia GI Symptom: Negative for Melena or Hematochezia Narrative Narrative: 62-year-old female was seen here 2 days ago and diagnosed with transverse colon diverticulitis for which she was started on Cipro and Flagyl. She has been nauseated but keeping her medications down, but she has been in an increasing amount of pain, it has been severe. She now is developed fevers. [facility] Medical History Abnormal EKG Dyspnea on exertion Essential hypertension Fatigue First degree AV block Nonrheumatic aortic valve insufficiency Obesity Prolonged QT interval SBO (small bowel obstruction) Small bowel obstruction Home Medications potassium chloride 20 mEq tablet,extended release(part/cryst) (Klor-Con M) 20 meq PO DAILY #90 tabs 06/14/20 [Rx Last Taken Unknown] olmesartan 40 mg tablet 20 mg PO DAILY 08/30/21 [History Last Taken Unknown] clobetasol 0.05 % topical ointment See Rx Instructions .Route .COMPLEX #30 grams 05/09/22 [Rx Last Taken Unknown] ciprofloxacin HCl 500 mg tablet (Cipro) 500 mg PO BID #20 tabs 11/21/22 [Rx Last Taken Unknown] metronidazole 500 mg tablet 500 mg PO TID 10 days #30 tabs 11/21/22 [Rx Last Taken Unknown] ondansetron 4 mg disintegrating tablet 4 mg PO Q8H PRN PRN Nausea #10 tabs 11/21/22 [Rx Last Taken Unknown] Allergy/AdvReac Type Severity Reaction Status Date / Time hydrochlorothiazide AdvReac Severe SEVERE Verified 11/23/22 12:52 HYPOKALEMIA, hospitalized for it bee venom protein (honey bee) AdvReac Swelling Verified 11/23/22 12:52 Family History Uncle Diabetes Aunt Diabetes Surgical History H/O total hysterectomy History of appendectomy History of bowel resection History of right and left heart catheterization (02/10/19) Social History Smoking Status: Former smoker quit date: 08/13/12 pack-years: 10 alcohol intake: current details: social substance use type: does not use caffeine: Yes what type of physical activity do you participate in: bicycling and yoga frequency: 5-6 times per week seatbelt use: always do you feel safe at home: Yes 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 ED Constitutional Constitutional ED: Reports chills, fever(s) and malaise Eyes Eyes: Denies change in vision or diplopia ENT ENT ED: Denies rhinorrhea or sore throat Cardiovascular Cardiovascular: Denies chest pain or palpitations Respiratory/Chest Respiratory/Chest: Denies cough or dyspnea Gastrointestinal Gastrointestinal: Reports abdominal pain and nausea; Denies diarrhea, melena or vomiting Genitourinary Genitourinary ED: Denies dysuria or hematuria Musculoskeletal Musculoskeletal: Denies back pain or neck pain Integumentary Denies abscess or rash Neurologic Neurologic: Denies headache(s), paresthesias or weakness Psychiatric Psychiatric: Reports anxiety; Denies suicidal thoughts EXAM Physical Exam Const Vital Signs: 11/23/22 12:50 11/23/22 13:11 11/23/22 14:52 Temperature 96.5 F L 96.5 F L 97.7 F L Temperature Source Temporal Temporal Oral Pulse Rate 101 H 101 H 84 Respiratory Rate 18 18 16 Blood Pressure 113/71 113/71 138/74 H Blood Pressure Mean 85 85 95 Pulse Ox 97 97 97 Oxygen Delivery Method Room Air Room Air Room Air Positive well nourished and well developed General Appearance ED: well developed and NAD HEENT Reports moist mucous membranes normocephalic and atraumatic Eyes PERRL and EOMs intact bilaterally Neck full ROM and supple Resp normal respiratory effort and clear to auscultation bilaterally Cardio regular rate, regular rhythm and peripheral pulses 2+ throughout Rate: tachycardic Heart Sounds: murmur systolic III/ crescendo-decrescendo GI non-distended GI Narrative: Tender from the midpoint of the abdomen over to the right worst in the right upper quadrant voluntary guarding, with the patient grabbing the examiner's hand. There is no rebound tenderness. Abdomen is soft. Auscultation: normoactive bowel sounds Palpation: soft Back/Spine no CVA tenderness General Back: other FROM Extremity normal to inspection General Extremety ED: Negative for edema, pulses abnormal or tenderness General Extremity: Negative for edema or pulses abnormal Neuro oriented x3, CN's II-XII intact bilaterally and no sensory deficits noted Sensorium / Orientation: awake and alert Motor Exam: strength 5/5 throughout Psych thought process normal Mood & Affect: anxious and tearful Skin no rashes or lesions noted and no wounds MDM MDM MDM Narrative Medical decision making narrative: I repeated labs and CT with IV contrast on this patient while treating her pain and nausea and given her IV fluids. Her vital signs remained stable, she felt better after Dilaudid, the white blood count has gone up, and her CT shows evidence of worsening with likely microperforation but no organized abscess formation. Given IV cefepime, plan is for admission to medical surgical floor. Discussed with hospitalist. History & Record Review Additional record(s) reviewed:: Prior ED visit and Prior labs Lab Data Attestation: I reviewed the patient's lab results. Labs: Laboratory Results - last 24 hr 11/23/22 11/23/22 13:25 13:25 WBC 13.5 H RBC 4.67 Hgb 13.9 Hct 42.1 MCV 90.1 D MCH 29.8 MCHC 33.0 D RDW Std Deviation 44.1 H RDW Coeff of Bhavya 13.4 Plt Count 362 MPV 9.5 Immature Gran % (Auto) 0.400 Neut % (Auto) 76.2 H Lymph % (Auto) 13.5 L Wilkes % (Auto) 9.0 Eos % (Auto) 0.5 Baso % (Auto) 0.4 Absolute Neuts (auto) 10.3 H Absolute Lymphs (auto) 1.82 Nucleated RBC % 0 Sodium 136 Potassium 3.6 Chloride 104 Carbon Dioxide 24.0 Anion Gap 8 BUN 11 Creatinine 0.84 Estim Creat Clear Calc 65.80 Est GFR (MDRD) Af Amer 87 Est GFR (MDRD) Non-Af 72 BUN/Creatinine Ratio 13.0 Glucose 106 Calcium 9.4 Radiography Diagnostic Testing: Clinical Impression(s) from Imaging Studies Abdomen/Pelvis CT 11/23/22 13:14 IMPRESSION: Interval worsening of previously noted acute diverticulitis involving the proximal transverse colon, the amount of colon involvement appears to have increased as has the amount of pericolonic inflammatory stranding and there is also now evidence to suspect microperforation although there is no organized abscess. Scattered colonic diverticulosis elsewhere particularly in the sigmoid colon without other evidence of acute diverticulitis. Small bowel ileus No suspicious solid organ abnormality Electronically Signed: Alexsander Clarke MD at 14:11 EDT , Management Discussion w/another healthcare provider: Hospitalist Discharge Plan Dx/Rx/DC Orders Clinical Impression: Acute diverticulitis, Failure of outpatient treatment Disposition Disposition: Acute Care [facility]
[2022-11-23] MEDS: Ondansetron 4 MG/2 ML Vial IV (13:31)
[2022-11-23] MEDS: HYDROmorphone 1 MG/ML Syringe IV (13:31)
[2022-11-23] MEDS: 0.9% Normal Saline 1,000 ML 1000 ML IV (13:31)
[2022-11-23 13:33] LABS: Absolute Lymphocyte Count 1.82 X10^3/uL (0.83-4.51); Absolute Neutrophil Count 10.3 X10^3/uL (2.0-7.7); Basophil# 0.06 X10^3/uL; Basophil% 0.4 % (0-1); Eosinophil# 0.07 X10^3/uL; Eosinophils% 0.5 % (0-5); Hematocrit 42.1 % (37-47); Hemoglobin 13.9 g/dL (12.0-15.0); Lymphocyte # 1.82 X10^3/ul (0.83-4.51); Lymphocyte % 13.5 % (19-41); Mean Corpuscular Hgb 29.8 pg (27.0-32.0); Mean Corpuscular Volume 90.1 fL (81-99); Mean Platelet Vol. 9.5 fl (6.2-12.0); Monocyte# 1.22 X10^3/uL; NRBC Flagged by Analyzer 0 % (0-5); Neutrophil # 10.26 X10^3/uL (2.7-7.7); Neutrophil % 76.2 % (47-70); Platelet Count 362 K/mm3 (150-450); RBC Distribution Width CV 13.4 % (11.6-14.6); RBC Distribution Width SD 44.1 fl (35.1-43.9); Red Blood Count 4.67 M/mm3 (4.2-5.4); White Blood Count 13.5 K/mm3 (4.4-11.0)
[2022-11-23 13:42] LABS: Anion Gap 8 (5-15); BUN 11 mg/dL (7-18); Calcium,Total 9.4 mg/dL (8.5-10.1); Chloride 104 mmol/L (98-107); Creatinine, Serum 0.84 mg/dL (0.55-1.02); EST Glomerular Filtration Rate 72 mL/min (>60); Est Glom Filt Rate - Afr Amer 87 mL/min (>60); Glucose 106 mg/dL (74-106); Potassium 3.6 mmol/L (3.5-5.1); Sodium Level 136 mmol/L (136-145)
[2022-11-23 14:52] VITALS: BP 138/74; PULSE 84; RESP 16; TEMP 36.5; O2SAT 97
[2022-11-23 16:25] VITALS: BP 127/78; PULSE 78; RESP 16; TEMP 36.9; O2SAT 94
[2022-11-23 17:06] VITALS: BP 124/65; PULSE 74; RESP 18; TEMP 37.4; O2SAT 93; BMI 29.5
--- NOTE | 2022-11-23 17:30 | PCM.HP.STD ---
HPI - General General Date of Admission: 11/23/22 Date of Service: 11/23/22 Chief Complaint: Abdominal pain HPI Narrative JASSON GRIMALDO, is a very pleasant 62 F who presents to the emergency department with several days history of right upper quadrant pain. Spouse at the bedside who adds some to the history. Few days ago was diagnosed with acute diverticulitis involving the proximal transverse colon and was started on antibiotics as an outpatient. Compliant with oral antibiotics however symptoms continued to worsen and progress thus prompting her to present once again to the emergency department. CT scan done showing a progression of inflammatory changes and now microperforation. Images personally reviewed and I wonder if there may be a early development of phlegmon. Patient developed a fever today no chills. Appetite has been poor. Denies any nausea or vomiting. States urine is dark last bowel movement was about 2 days ago and was largely normal. [facility] Medical History Abnormal EKG Dyspnea on exertion Essential hypertension Fatigue First degree AV block Nonrheumatic aortic valve insufficiency Obesity Prolonged QT interval SBO (small bowel obstruction) Small bowel obstruction Home Medications olmesartan 40 mg tablet 20 mg PO QHS bp 08/30/21 [History Last Taken 11/22/22 21:00] ondansetron 4 mg disintegrating tablet 4 mg PO Q8H PRN PRN Nausea #10 tabs 11/21/22 [Rx Last Taken Unknown] ciprofloxacin HCl 500 mg tablet (Cipro) 500 mg PO BID infection 11/23/22 [History Last Taken 11/23/22 09:00] clobetasol 0.05 % topical ointment See Rx Instructions .Route .COMPLEX personal 11/23/22 [History Last Taken Unknown] metronidazole 500 mg tablet 500 mg PO TID infection 11/23/22 [History Last Taken 11/23/22 09:00] potassium chloride 20 mEq tablet,extended release(part/cryst) (Klor-Con M) 20 meq PO DAILY potassium supplement 11/23/22 [History Last Taken 11/22/22 21:00] Allergy/AdvReac Type Severity Reaction Status Date / Time hydrochlorothiazide AdvReac Severe SEVERE Verified 11/23/22 12:52 HYPOKALEMIA, hospitalized for it bee venom protein (honey bee) AdvReac Swelling Verified 11/23/22 12:52 Family History Uncle Diabetes Aunt Diabetes Surgical History H/O total hysterectomy History of appendectomy History of bowel resection History of right and left heart catheterization (02/10/19) Social History Smoking Status: Former smoker quit date: 08/13/12 pack-years: 10 alcohol intake: current details: social substance use type: does not use caffeine: Yes what type of physical activity do you participate in: bicycling and yoga frequency: 5-6 times per week seatbelt use: always do you feel safe at home: Yes 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 Narrative Patient denies any chest pain or shortness of breath. All other systems reviewed and essentially negative as above in the body of the history. Vital Signs Vital Signs Vital Signs: 11/23/22 12:50 11/23/22 13:11 11/23/22 14:52 Temperature 35.8 C L 35.8 C L 36.5 C L Temperature Source Temporal Temporal Oral Pulse Rate 101 H 101 H 84 Respiratory Rate 18 18 16 Blood Pressure 113/71 113/71 138/74 H Blood Pressure Mean 85 85 95 Pulse Ox 97 97 97 Oxygen Delivery Method Room Air Room Air Room Air 11/23/22 16:25 11/23/22 17:06 Temperature 36.9 C 37.4 C H Temperature Source Oral Oral Pulse Rate 78 74 Respiratory Rate 16 18 Blood Pressure 127/78 H 124/65 H Blood Pressure Mean 94 84 Pulse Ox 94 93 Oxygen Delivery Method Room Air Room Air Weight Weight: 85.411 kg Body Mass Index (BMI) 29.5 Physical Exam Narrative General exam. Middle-aged woman, acutely ill-appearing, anxious appearing in some painful distress. HEENT. Oral mucosa is dry no pallor or jaundice. Neck. Neck is supple Lungs. Nonlabored breathing, vesicular breath sounds and no adventitious breath sounds. Heart. First and second heart sounds heard, grade 3/6 to 4/6 ejection systolic murmur maximal over the right upper sternal border radiating to the neck. Abdomen. Exquisite tenderness in the right upper quadrants with associated guarding and rebound tenderness. Rovsing's sign positive. Bowel sounds normoactive. Extremities. No pedal edema. 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 Cranial 2-12 grossly intact. All other organ systems examined and essentially negative. Results Medical Records Data Attestation: I reviewed the patient's medical records Lab / Micro Data Attestation: I reviewed the patient's lab results. Result Diagrams: 11/23/22 13:25 11/23/22 13:25 Labs: Laboratory Results - last 24 hr 11/23/22 13:25: WBC 13.5 H, RBC 4.67, Hgb 13.9, Hct 42.1, MCV 90.1 D, MCH 29.8, MCHC 33.0 D, RDW Std Deviation 44.1 H, RDW Coeff of Bhavya 13.4, Plt Count 362, MPV 9.5, Immature Gran % (Auto) 0.400, Neut % (Auto) 76.2 H, Lymph % (Auto) 13.5 L, [place] % (Auto) 9.0, Eos % (Auto) 0.5, Baso % (Auto) 0.4, Absolute Neuts (auto) 10.3 H, Absolute Lymphs (auto) 1.82, Nucleated RBC % 0 11/23/22 13:25: Sodium 136, Potassium 3.6, Chloride 104, Carbon Dioxide 24.0, Anion Gap 8, BUN 11, Creatinine 0.84, Estim Creat Clear Calc 65.80, Est GFR (MDRD) Af Amer 87, Est GFR (MDRD) Non-Af 72, BUN/Creatinine Ratio 13.0, Glucose 106, Calcium 9.4 Radiology Impression Abdomen/Pelvis CT 11/23/22 13:14 IMPRESSION: Interval worsening of previously noted acute diverticulitis involving the proximal transverse colon, the amount of colon involvement appears to have increased as has the amount of pericolonic inflammatory stranding and there is also now evidence to suspect microperforation although there is no organized abscess. Scattered colonic diverticulosis elsewhere particularly in the sigmoid colon without other evidence of acute diverticulitis. Small bowel ileus No suspicious solid organ abnormality Electronically Signed: Alexsander Clarke MD at 14:11 EDT , Assessment & Plan Assessment/Plan (1) Acute diverticulitis: PLAN: Plan Assessment and plan 1. Acute diverticulitis involving the proximal transverse colon with associated microperforation. Failed outpatient treatment with oral antibiotics. Suspect possible early phlegmous changes. To place patient on clear liquids. IV antibiotics with Zosyn to cover for gram-negatives and anaerobes. Multimodal pain control. Maintain low threshold for surgical consultation. Serial abdominal exams. 2. History of aortic regurgitation. Serially being monitored by cardiology. No symptoms of cardiac decompensation at this time.
[2022-11-23] MEDS: KCL 20MEQ in D5.45NS 20 MEQ/1,000 ML IV.SOLN. 100 MEQ IV (17:40)
[2022-11-23] MEDS: oxyCODONE 5 MG Tablet 10 MG PO ×2 (17:50→21:28)
[2022-11-23 21:28] VITALS: BP 113/71; PULSE 74; RESP 18; TEMP 37.1; O2SAT 94
[2022-11-23] MEDS: Losartan Potassium 50 MG Tablet PO (21:28)
[2022-11-24] MEDS: Acetaminophen 500 MG Tablet 1000 MG PO ×3 (05:03→22:22)
[2022-11-24] MEDS: KCL 20MEQ in D5.45NS 20 MEQ/1,000 ML IV.SOLN. 100 MEQ IV ×2 (05:03→16:05)
[2022-11-24] MEDS: oxyCODONE 5 MG Tablet 10 MG PO (05:04)
[2022-11-24 05:13] VITALS: BP 122/70; PULSE 65; RESP 16; TEMP 36.8; O2SAT 96
[2022-11-24 06:55] LABS: Absolute Lymphocyte Count 1.57 X10^3/uL (0.83-4.51); Absolute Neutrophil Count 7.1 X10^3/uL (2.0-7.7); Basophil# 0.07 X10^3/uL; Basophil% 0.7 % (0-1); Eosinophil# 0.12 X10^3/uL; Eosinophils% 1.2 % (0-5); Hematocrit 37.4 % (37-47); Hemoglobin 11.8 g/dL (12.0-15.0); Lymphocyte # 1.57 X10^3/ul (0.83-4.51); Lymphocyte % 15.9 % (19-41); Mean Corp Hgb Conc 31.6 g/dL (32-36); Mean Corpuscular Hgb 29.3 pg (27.0-32.0); Mean Corpuscular Volume 92.8 fL (81-99); Mean Platelet Vol. 9.9 fl (6.2-12.0); Monocyte# 0.93 X10^3/uL; Monocyte% 9.4 % (0-10); NRBC Flagged by Analyzer 0 % (0-5); Neutrophil # 7.14 X10^3/uL (2.7-7.7); Neutrophil % 72.3 % (47-70); Platelet Count 329 K/mm3 (150-450); RBC Distribution Width CV 13.2 % (11.6-14.6); RBC Distribution Width SD 45.4 fl (35.1-43.9); Red Blood Count 4.03 M/mm3 (4.2-5.4); White Blood Count 9.9 K/mm3 (4.4-11.0)
[2022-11-24 07:35] LABS: ALB/GLOB Ratio 0.7 RATIO (0.9-2.4); AST(SGOT) 10 U/L (15-37); Alanine Aminotransfer ALT/SGPT 18 U/L (13-56); Albumin, Serum 2.9 g/dL (3.2-5.0); Alkaline Phosphatase 65 U/L (45-117); Anion Gap 5 (5-15); BUN 10 mg/dL (7-18); BUN/Creat Ratio 13.4 RATIO (10-20); Calcium,Total 8.7 mg/dL (8.5-10.1); Chloride 107 mmol/L (98-107); Creatinine, Serum 0.75 mg/dL (0.55-1.02); EST Glomerular Filtration Rate 83 mL/min (>60); Est Glom Filt Rate - Afr Amer 101 mL/min (>60); Estimated Creatinine Clearance 73.69 ml/min; Globulin 4.1 g/dL (2.2-4.2); Glucose 122 mg/dL (74-106); Magnesium 2.5 mg/dL (1.6-2.6); Phosphorus 2.9 mg/dL (2.5-4.9); Potassium 3.6 mmol/L (3.5-5.1); Sodium Level 136 mmol/L (136-145)
--- NOTE | 2022-11-24 09:30 | CASEMGMT ---
MEHNAZ GARDNER Assessment: Face to Face with pt for initial transition planning/care coordination assessment. RN JJ introduced self and role at [facility], pt voices understanding and consents to assessment. Pt is A/O x4 and answers all questions appropriately at this time. Pt lying in bed in no distress. Care providers, pharmacy, and demographics verified/updated. Admitting Dx: diverticulitis PCP:Wilfredo Specialists: Brandon cardio Preferred Pharmacy: [facility] Insurance: [employer] Prescription Benefit: yes LNOK: Praful Iyer, Living Arrangements: Pt lives with in a split level home with 2 steps to enter. Pt reports she is I in ADL's and denies concerns at home. Transportation: Pt drives self and denies concerns with transportation. DME/HHC/SNF: Pt denies having any DME in the home, previous HHC or SNF stays. Pt states no concerns with going home at time of dc. Pt states no further concerns/needs. CM to follow. Advised pt to ask CM if any further question/concerns/needs arise, voices understanding. Pt Goal: Home Plan: Home
[2022-11-24 10:34] VITALS: BP 126/72; PULSE 62; RESP 18; TEMP 36.7; O2SAT 94
[2022-11-24 16:05] VITALS: BP 143/68; PULSE 74; RESP 18; TEMP 36.4; O2SAT 97
[2022-11-24] MEDS: 0.9% Saline Lock 10 ML Syringe IV (17:18)
--- NOTE | 2022-11-24 19:49 | PCM.PN.HOSP ---
Reason for Visit Reason for Visit: Diagnoses Diverticulitis of intestine, part unspecified, without perforation or abscess without bleeding (11/23/22) Subjective Subjective Patient was seen and examined today, she states she feels much better and has less abdominal pain. Patient states she had an emesis today and then afterward she felt much better. I have decided to advance her diet to full liquid diet today, I will most likely put her on a regular diet starting tomorrow morning and see how she does. Patient's white blood cell count today was 9.9. Objective Data Objective Data Vital Signs: Vital Signs Temp Pulse Resp BP Pulse Ox O2 Del Method 97.5 F L 74 18 143/68 H 97 Room Air 11/24/22 16:05 11/24/22 16:05 11/24/22 16:05 11/24/22 16:05 11/24/22 16:05 11/24/22 16:05 Oxygen Delivery Method Room Air Weight: 85.411 kg Body Mass Index (BMI) 29.5 Intake & Output: Intake and Output for Last 24 Hours 11/22/22 11/23/22 11/24/22 23:59 23:59 23:59 Intake Total 1431.67 / 1431.67 2085 / 2085 Output Total 500 / 500 Balance 1431.67 / 1431.67 1585 / 1585 Lab / Micro Data Result Diagrams: 11/24/22 06:36 11/24/22 06:36 Labs: Laboratory Results - last 24 hr 11/24/22 06:36: WBC 9.9, RBC 4.03 L, Hgb 11.8 L, Hct 37.4, MCV 92.8, MCH 29.3, MCHC 31.6 L, RDW Std Deviation 45.4 H, RDW Coeff of Bhavya 13.2, Plt Count 329, MPV 9.9, Immature Gran % (Auto) 0.500, Neut % (Auto) 72.3 H, Lymph % (Auto) 15.9 L, [place] % (Auto) 9.4, Eos % (Auto) 1.2, Baso % (Auto) 0.7, Absolute Neuts (auto) 7.1, Absolute Lymphs (auto) 1.57, Nucleated RBC % 0 11/24/22 06:36: Sodium 136, Potassium 3.6, Chloride 107, Carbon Dioxide 24.0, Anion Gap 5, BUN 10, Creatinine 0.75, Estim Creat Clear Calc 73.69, Est GFR (MDRD) Af Amer 101, Est GFR (MDRD) Non-Af 83, BUN/Creatinine Ratio 13.4, Glucose 122 H, Calcium 8.7, Phosphorus 2.9, Magnesium 2.5, Total Bilirubin 0.50, AST 10 L, ALT 18, Alkaline Phosphatase 65, Total Protein 7.0, Albumin 2.9 L, Globulin 4.1, Albumin/Globulin Ratio 0.7 L Physical Exam Const alert, oriented x3, no apparent distress, average body habitus and healthy appearing General Appearance: cooperative, well kempt and well developed Orientation / Consciousness: awake, oriented to person, oriented to place and oriented to time HEENT normocephalic and moist oral mucous membranes Eyes PERRL, EOMs intact bilaterally and conjunctivae normal Neck supple, no JVD, thyroid normal and no carotid bruits General: trachea midline Resp normal respiratory effort and clear to auscultation bilaterally Auscultation: Negative for rales, rhonchi or wheezes Cardio regular rate, regular rhythm, no murmurs, no rub and no gallops GI normal to inspection, nondistended, normoactive bowel sounds, soft to palpation, non-tender and non-distended Extremity no clubbing, cyanosis or edema Skin no rashes or lesions noted General Skin Exam: no breakdown Neuro oriented x3, CN's II-XII intact bilaterally, no focal motor deficits and no sensory deficits noted Sensorium / Orientation: awake and alert Speech: speech normal Psych affect normal Assessment & Plan Assessment/Plan (1) Diverticulitis: PLAN: Plan 1. Acute diverticulitis involving the proximal transverse colon, associated with microperforation, with failed outpatient treatment-continue IV antibiotics #2 essential hypertension Total clinical time spent by myself addressing the patient's medical issues, reviewing all of her data, and collaborating with patient's care team: 25 minutes Charges/Coding Visit Charges Inpatient E&M: 48137 [facility] Hosp L1
[2022-11-24 22:00] VITALS: BP 149/80; PULSE 66; RESP 14; TEMP 36.7; O2SAT 97
[2022-11-25 02:20] VITALS: BP 134/93; PULSE 65; RESP 14; TEMP 36.5; O2SAT 95
[2022-11-25] MEDS: KCL 20MEQ in D5.45NS 20 MEQ/1,000 ML IV.SOLN. 100 MEQ IV (02:20)
[2022-11-25] MEDS: Acetaminophen 500 MG Tablet 1000 MG PO (06:11)
[2022-11-25 08:10] VITALS: BP 145/86; PULSE 70; RESP 18; TEMP 37.1; O2SAT 94
--- NOTE | 2022-11-25 09:23 | DCINST_ITS ---
Discharge Instructions Diet Discharge Diet: No restrictions Activity Discharge Activity: Return to Normal Activity Weight Bearing Status: Full weight bearing Follow Up Care Test Results: Test results from this visit will be discussed in further detail at your follow- up appointment, if applicable. Discharge Plan Admission Admit Date/Time: 11/23/22 16:54 Primary Reason for Your Visit: diverticulitis Attending Provider: Paul Kapadia Primary Care Provider: Benny Villalobos Consulting Providers: Stephanie Elizalde Discharge Orders/Prescriptions Prescriptions: Continued ondansetron 4 mg tablet,disintegrating 4 mg PO Q8H PRN PRN (Reason: Nausea) Qty: 10 0RF metronidazole 500 mg tablet 500 mg PO TID ciprofloxacin HCl [Cipro] 500 mg tablet 500 mg PO BID potassium chloride [Klor-Con M20] 20 mEq tablet,ER particles/crystals 20 meq PO DAILY clobetasol 0.05 % ointment See Rx Instructions .ROUTE .COMPLEX Rx Instructions: APPLY TOPICALLY TO AFFECTEDAREA AT BEDTIME. MASSAGE IN GENTLY olmesartan 40 mg tablet 20 mg PO QHS Referrals / Follow Up: Benny Villalobos MD [Primary Care Provider] - Within 2 Weeks Disposition Disposition (needs filled in before D/C Order can be placed): Home, Self Care
--- NOTE | 2022-11-25 09:25 | DS.PCM_ITS ---
Providers Date of Admission: 11/23/22 Date of Discharge: 11/25/22 Primary Care Physician: Dr. Benny Villalobos MD Reason For Visit: DIVERTICULITIS Diagnosis Discharge Diagnosis (1) Acute diverticulitis: Status: Acute Code(s): K57.92 - Diverticulitis of intestine, part unspecified, without perforation or abscess without bleeding Plan Acute diverticulitis with microperforation of the colon #2 essential hypertension Medications at Discharge Home Medications olmesartan 40 mg tablet 20 mg PO QHS bp 08/30/21 ondansetron 4 mg disintegrating tablet 4 mg PO Q8H PRN PRN Nausea #10 tabs 11/21/22 ciprofloxacin HCl 500 mg tablet (Cipro) 500 mg PO BID infection 11/23/22 clobetasol 0.05 % topical ointment See Rx Instructions .Route .COMPLEX personal 11/23/22 metronidazole 500 mg tablet 500 mg PO TID infection 11/23/22 potassium chloride 20 mEq tablet,extended release(part/cryst) (Klor-Con M) 20 meq PO DAILY potassium supplement 11/23/22 Hospital Course Operations None Procedures None Summary of Care Provided Minutes Spent on Discharge: 31 Hospital Course: 62-year-old white female was seen in the emergency room with complaints of abdominal pain, she had been diagnosed a few days previously with diverticulitis after being seen in the emergency room. Patient was taking outpatient antibiotics. Work-up in the emergency revealed progression of inflammatory changes and microperforation, patient was admitted to [facility] placed on IV antibiotics, the following day she was evaluated and felt better but still had some abdominal tenderness. Patient diet was advanced. On 11/25/2022, patient was seen and examined: On examination she appeared in good health and spirits, she does not appear to be in any distress. Vital signs as documented. Skin warm and dry and without overt rashes. Neck without JVD, thyroid appears normal, trachea is midline, neck is supple. Lungs clear, normal air movement was noted. Heart exam notable for regular rhythm, normal sounds and absence of murmurs, rubs or gallops. Abdomen unremarkable and without evidence of organomegaly, masses, or abdominal aortic enlargement, bowel sounds are present in all 4 quadrants, no abdominal tenderness was noted. Extremities nonedematous, no cyanosis was noted, no clubbing was noted. Neuro: Cranial nerves II through XII are grossly intact, no focal motor deficits were noted, sensation to light touch and pinprick is intact, motor exam 5/5 throughout. Psych: Patient is alert and oriented x3, she does not appear anxious or depressed, she does not appear agitated. Patient was felt to be stable for discharge home on 11/25/2022. Weight / BMI Weight Weight: 85.411 kg Body Mass Index (BMI) 29.5 ABG / Lab / Microbiology Data Result Diagrams: 11/24/22 06:36 11/24/22 06:36 D/C Instructions Discharge Diet: No restrictions Weight Bearing Status: Full weight bearing Meaningful Use Info Meaningful Use Diagnoses (Choose all that apply): None applicable Discharge Plan Admission Admit Date/Time: 11/23/22 16:54 Primary Reason for Your Visit: diverticulitis Attending Provider: Paul Kapadia Primary Care Provider: Benny Villalobos Consulting Providers: Stephanie Elizalde Discharge Orders/Prescriptions Prescriptions: Continued ondansetron 4 mg tablet,disintegrating 4 mg PO Q8H PRN PRN (Reason: Nausea) Qty: 10 0RF metronidazole 500 mg tablet 500 mg PO TID ciprofloxacin HCl [Cipro] 500 mg tablet 500 mg PO BID potassium chloride [Klor-Con M20] 20 mEq tablet,ER particles/crystals 20 meq PO DAILY clobetasol 0.05 % ointment See Rx Instructions .ROUTE .COMPLEX Rx Instructions: APPLY TOPICALLY TO AFFECTEDAREA AT BEDTIME. MASSAGE IN GENTLY olmesartan 40 mg tablet 20 mg PO QHS Referrals / Follow Up: Benny Villalobos MD [Primary Care Provider] - Within 2 Weeks Disposition Disposition (needs filled in before D/C Order can be placed): Home, Self Care Charges/Coding Visit Charges Inpatient E&M: 86714 Disch Hosp >30min
== END 2022-11-25 10:23 | disposition home or self-care (01) | DRG 392 ==
LOC: ED 14:51 → MS3 17:21
PROVIDERS: Admitting Provider Internal Medicine; Emergency Provider Emergency Medicine; PCP Family Medicine; Visit Provider Internal Medicine
DX: K57.32 Diverticulitis of large intestine without perforation or abscess without bleeding (principal); I10 Essential (primary) hypertension; Z87.891 Personal history of nicotine dependence
CPT/HCPCS: 36415; 74177; 80048; 80053; 83735; 84100; 85025; 97802; 99284; J7030; Q9967; A4216; J2405

== ENCOUNTER → 2022-12-28 | Outpatient (CLI) | payer OTHER, SELFPAY ==
[2022-12-28 16:10] LABS: Absolute Lymphocyte Count 3.05 X10^3/uL (0.83-4.51); Absolute Neutrophil Count 4.3 X10^3/uL (2.0-7.7); Basophil# 0.07 X10^3/uL; Basophil% 0.9 % (0-1); Eosinophil# 0.16 X10^3/uL; Eosinophils% 1.9 % (0-5); Hematocrit 43.5 % (37-47); Hemoglobin 14.2 g/dL (12.0-15.0); Lymphocyte # 3.05 X10^3/ul (0.83-4.51); Lymphocyte % 37.1 % (19-41); Mean Corp Hgb Conc 32.6 g/dL (32-36); Mean Corpuscular Hgb 29.7 pg (27.0-32.0); Mean Platelet Vol. 9.8 fl (6.2-12.0); Monocyte# 0.62 X10^3/uL; Monocyte% 7.5 % (0-10); NRBC Flagged by Analyzer 0 % (0-5); Neutrophil % 52.2 % (47-70); Platelet Count 343 K/mm3 (150-450); RBC Distribution Width CV 13.4 % (11.6-14.6); Red Blood Count 4.78 M/mm3 (4.2-5.4); White Blood Count 8.2 K/mm3 (4.4-11.0)
[2022-12-28 16:38] LABS: Erythrocyte Sedimentation Rate 13 mm/hr (0-30)
[2022-12-28 16:55] LABS: ALB/GLOB Ratio 1.2 RATIO (0.9-2.4); AST(SGOT) 24 U/L (15-37); Alanine Aminotransfer ALT/SGPT 38 U/L (13-56); Albumin, Serum 4.2 g/dL (3.2-5.0); Alkaline Phosphatase 86 U/L (45-117); Anion Gap 8 (5-15); BUN 11 mg/dL (7-18); BUN/Creat Ratio 13.7 RATIO (10-20); CRP 4.09 mg/L (0.0-3.0); Calcium,Total 9.5 mg/dL (8.5-10.1); Chloride 107 mmol/L (98-107); EST Glomerular Filtration Rate 77 mL/min (>60); Est Glom Filt Rate - Afr Amer 93 mL/min (>60); Globulin 3.6 g/dL (2.2-4.2); Glucose 96 mg/dL (74-106); Protein, Total 7.8 g/dL (6.4-8.2); Sodium Level 142 mmol/L (136-145)
== END | disposition home or self-care (01) ==
LOC: LAB 15:22
PROVIDERS: PCP Family Medicine; Referring Provider Surgery; Visit Provider Surgery
DX: Z87.19 Personal history of other diseases of the digestive system (principal)
CPT/HCPCS: 36415; 80053; 85025; 85652; 86140

== ENCOUNTER 2023-02-02 09:26 | Day surgery (SDC) | payer OTHER, SELFPAY ==
[2023-02-02] VITALS (7 sets, daily range): BP systolic 91–128; BP diastolic 56–80; PULSE 62–72; RESP 14–16; TEMP 36–36.2; O2SAT 95–98; BMI 29.5
--- NOTE | 2023-02-02 09:47 | HP.PCM_ITS ---
Assessment & Plan Assessment/Plan (1) Acute diverticulitis: PLAN: Plan Visit Reasons:?DIVERTICULTIS COLONOSCOPY Chief Complaint: diverticulitis colonoscopy Is patient in pain?: No Allergies hydrochlorothiazide Adverse Reaction (Severe, Verified 12/28/22 14:07) SEVERE HYPOKALEMIA, hospitalized for itbee venom protein (honey bee) Adverse Reaction (Verified 12/28/22 14:07) Swelling PFSH Medical History? Abnormal EKG Dyspnea on exertion Essential hypertension Fatigue First degree AV block Nonrheumatic aortic valve insufficiency Obesity Prolonged QT interval SBO (small bowel obstruction) Small bowel obstruction Surgical History? H/O total hysterectomy History of appendectomy History of bowel resection History of right and left heart catheterization (02/10/19) Family History? Uncle DiabetesAunt Diabetes Social History? Smoking Status:? Former smoker quit date: 08/13/12 pack-years: 10 alcohol intake:? current details:? social substance use type:? does not use caffeine:? Yes what type of physical activity do you participate in:? bicycling and yoga frequency:? 5-6 times per week seatbelt use:? always do you feel safe at home:? Yes additional social history:? Dante HPI HPI HPI: 62-year-old female was referred by Dr. Benny Villalobos for surgical consultation regarding diverticulitis.? Written compromise surgical consult recommendations will return to him.? By report it appears the patient's most recent colonoscopy was per myself October 2012 with findings of hyperplastic rectal polyps. Patient was hospitalized July 2019 with a partial small bowel obstruction.? 4 years prior to that she had had a similar episode.? She has had several previous episodes as well.? Going back to 2010 she had a laparoscopy with conversion to open lysis of adhesions and release of small bowel obstruction.? 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 Apparently she had surgery as a some type of small bowel resection due to malrotation.? She has also had a previous appendectomy and is previous hysterectomy. Her most recent hospitalization was November 23 through November 25, 2022 which what was felt to be the proximal transverse colon acute diverticulitis with pericolonic inflammation and stranding.? No abscess but felt to represent microperforation.? Fortunately she improved with conservative measures and did not require surgery.? Although diverticular disease is noted in the sigmoid colon there was no evidence of acute inflammation at that site.? I have personally reviewed these images.? There is significant inflammatory changes of the proximal transverse colon.? Somewhat remarkable that she resolved with conservative measures. The patient presents with her today.? She states that she still feels bloated.? No fever or chills.? No bright red blood per rectum or melena.? Previous colonoscopy now 10 years ago. It became apparent discussing things with the patient that she had instituted a rigorous exercise protocol in the gym that required 100 abdominal crunches.? wondered whether this could possibly have been contributory to the bout of acute diverticulitis in the proximal transverse colon which would otherwise be an unusual site.? I did concur that the potential for sudden Valsalva maneuvers could potentially have affected that bowel.? In addition as we continue to discuss possible aggravating factors it is apparent that the patient does enjoy eating nuts and does so frequently. ROS General General: Yes fatigue; No weight change, appetite, colon cancer, breast cancer or weakness HEENT HEENT: No difficulty swallowing, eye injury, eye surgery, swollen glands or hoarseness Endo Endocrine: No thyroid disease, diabetes mellitus, thyroid cancer, Hair loss, heat intolerance or cold intolerance Skin Skin: No rash or changing moles Musc Musculoskeletal: No back problems, arthritis, rheumatoid arthritis, gout or joint pain Cardio Cardiovascular: Yes murmur and high blood pressure; No pacemaker, heart disease, atrial fibrillation, heart attack, heart stent, palpitations, shortness of breat with exertion or chest pain Psych Psychiatric: No depression, anxiety or hearing voices Resp Respiratory: No shortness of breath, No sleep apnea, No cough, No COPD, No asthma, No emphysema and No wheezing Gastro Gastrointestinal: No abdominal pain, No nausea or vomiting, No diarrhea, No constipation, No blood in stool, No acid reflux, No hemorrhoids, No ulcers, No gallbladder problem and No black,tarry stools [place] Hematologic: No blood thinners, No blood disorders, No bleeding, No anemia and No blood clots Neuro Neurologic: No system reviewed and no additional complaints, except as documented, No as per HPI, No abnormal gait, No abnormal hearing, No abnormal movements, No abnormal speech, No behavioral changes, No burning sensations, No confusion, No convulsions, No disequilibrium, No dizziness, No localized weak ness, No frequent falls, No headache(s), No lack of coordination, No loss of vision, No memory loss, No numbness, No other visual disturbances, No radicular pain, No restless legs, No sensory deficit, No syncope, No tingling, No tremor(s), No weakness and No other Exam Const General: cooperative, healthy appearing, comfortable and no acute distress Nutritional Appearance: overweight HENMT Head: normal to inspection Eyes General: appearance normal, both eyes and all related structures Neck Neck: normal visual inspection Resp Effort & Inspection: normal respiratory effort Auscultation: clear to auscultation bilaterally Cardio Rate: regular rate Rhythm: regular rhythm GI Inspection: normal to inspection Other: Mild tenderness palpation right lower quadrant and right mid abdomen and right upper quadrant and mid epigastrium.? Some slight guarding in the mid epigastrium.? No distinct focal mass.? Bowel sounds present and unremarkable. Well-healed infraumbilical midline incision by patient report from my laparoscopy/exploratory laparotomy with lysis of adhesions for small bowel obstruction.? Long right pararectus incision from the costal margin all the way down to the right lower quadrant from her bowel resection malrotation surgery of infancy. Musc Cervical Spine: normal cervical lordosis Skin General: no rashes or lesions noted Neuro General: patient alert, patient awake and patient oriented x3 Extrem General: no calf tenderness Psych Appearance: grossly normal, well kempt and disheveled Assessment and Plan Assessment and Plan (1) History of diverticulitis of colon: ?Status:?Acute ?Plan: At this point does not completely clear to me that the patient has had of 100% resolution of her proximal transverse colon diverticulitis.? I would like to obtain a CMP and a CBC with differential and a ESR and a CRP today trying to help evaluate whether there is chronic smoldering residual inflammation.? She was somewhat tender to palpation throughout the right side of the abdomen in the epigastrium.? Based upon her CT images which I have reviewed there was a significant amount of stranding and inflammation around the proximal transverse colon and it is possible that she could have a contained smoldering process enveloped by pericolonic fatty structures.? If abnormal laboratory is detected then I will recommend a follow-up CT scan with at least oral contrast to better define that situation.? I have cautioned the patient however that this is a much less common site for diverticular disease and if a colectomy in this area is required then I would not be able to assure her that she would not develop future recurrent diverticulitis and another segment of her bowel.? I am not recommending surgery for her at this time and hopefully we can continue to manage her conservatively. I do recommend to her a colonoscopy with possible biopsy or polypectomy as indicated.? She is aware that I will be out of town however it then became apparent that the patient herself has social issues with graduation and out-of-town vacation plans as well.? We will schedule her at her earliest convenience.? She is aware of the technique, benefit, risk, alternatives.? I anticipate performing this with monitored anesthesia care.? Likely will require an adult colonoscope as well. I appreciate the ongoing opportunity of assisting with her surgical care. Copy: Dr. Benny Shrestha M.D., F.A.C.S I have examined the patient and the H&P has been reviewed. There are no clinical changes since date of exam. Lenny Shrestha M.D., F.A.C.S.
[2023-02-02] MEDS: Lactated Ringers 1,000 ML 15 ML IV (09:59)
--- NOTE | 2023-02-02 11:32 | OP.COLON_ITS ---
Patient Name: Ivory Iyer Procedure Date: 02/02/2023 10:55 AM Date of : 1960 Age: 62 Procedure: Colonoscopy Indications: Abnormal CT of the GI tract Providers: Lenny Shrestha MD Medicines: See the Anesthesia note for documentation of the administered medications Patient Profile: Last Colonoscopy: date unknown. Complications: No immediate complications. Procedure: Pre-Anesthesia Assessment: - Prior to the procedure, a History and Physical was performed, and patient medications and allergies were reviewed. The patient's tolerance of previous anesthesia was also reviewed. The risks and benefits of the procedure and the sedation options and risks were discussed with the patient. All questions were answered, and informed consent was obtained. Prior Anticoagulants: The patient has taken no previous anticoagulant or antiplatelet agents. ASA Grade Assessment: II - A patient with mild systemic disease. After reviewing the risks and benefits, the patient was deemed in satisfactory condition to undergo the procedure. After I obtained informed consent, the scope was passed under direct vision. Throughout the procedure, the patient's blood pressure, pulse, and oxygen saturations were monitored continuously. The colonoscope was introduced through the anus and advanced to the cecum, identified by appendiceal orifice and ileocecal valve. The colonoscopy was technically difficult and complex due to multiple diverticula in the colon. Successful completion of the procedure was aided by changing endoscopes. The patient tolerated the procedure well. The quality of the bowel preparation was adequate to identify polyps. The ileocecal valve and the appendiceal orifice were photographed. Scope In: 11:03:57 AM Scope Withdrawal Time 0 hours 4 minutes 39 seconds Scope Out: 11:26:53 AM Total Procedure Duration Time 0 hours 22 minutes 56 seconds Findings: Hemorrhoids were found on perianal exam. Multiple diverticula were found in the entire colon. Impression: - Hemorrhoids found on perianal exam. - Diverticulosis in the entire examined colon. - No specimens collected. Unable to get the adult colonoscope to advance through a very tortuous sigmoid colon with extensive diverticulosis present. I switched to a pediatric scope and was able to get that scope to advance. Was able to get to the cecum. Inspection of the ascending colon was unremarkable. There was diverticulosis already noted in the proximal transverse colon but the lumen appeared to be patent I did not see any inflammatory changes. The descending and sigmoid colon has very severe diverticular disease. The lumen however again patent. Recommendation: - Discharge patient to home. - Resume previous diet. - Continue present medications. - Repeat colonoscopy in 10 years for screening purposes. Ongoing nonoperative management will be recommended Procedure Code(s): --- Professional --- 72388, Colonoscopy, flexible; diagnostic, including collection of specimen(s) by brushing or washing, when performed (separate procedure) Diagnosis Code(s): --- Professional --- K64.9, Unspecified hemorrhoids K57.30, Diverticulosis of large intestine without perforation or abscess without bleeding R93.3, Abnormal findings on diagnostic imaging of other parts of digestive tract CPT copyright 2017 [employer]. All rights reserved. The codes documented in this report are preliminary and upon marine extension agent review may be revised to meet current compliance requirements. Lenny Shrestha MD 02/02/2023 11:31:57 AM This report has been signed electronically. Number of Addenda: 0 Note Initiated On: 02/02/2023 10:55 AM
--- NOTE | 2023-02-02 11:33 | OP.CCLET_ITS ---
02/02/2023 Benny Villalobos [address] [facility] [place] [address] [place] [address] Re : Colonoscopy procedure for Ivory Iyer Dear Dr. Villalobos This procedure was performed on Thursday, February 02, 2023. My impressions and recommendations are as follows: Impressions : - Hemorrhoids found on perianal exam. - Diverticulosis in the entire examined colon. - No specimens collected. Unable to get the adult colonoscope to advance through a very tortuous sigmoid colon with extensive diverticulosis present. I switched to a pediatric scope and was able to get that scope to advance. Was able to get to the cecum. Inspection of the ascending colon was unremarkable. There was diverticulosis already noted in the proximal transverse colon but the lumen appeared to be patent I did not see any inflammatory changes. The descending and sigmoid colon has very severe diverticular disease. The lumen however again patent. Recommendations : - Discharge patient to home. - Resume previous diet. - Continue present medications. - Repeat colonoscopy in 10 years for screening purposes. Ongoing nonoperative management will be recommended My findings are described in the full procedure note, which is enclosed. If I can be of further assistance, please feel free to contact me at Doctor phone number(s): Work: . Sincerely, Lenny Shrestha MD 02/02/2023 11:31:57 AM This report has been signed electronically.
== END 2023-02-02 12:18 | disposition home or self-care (01) ==
LOC: EN 09:28 → AC 09:29
PROVIDERS: PCP Family Medicine; Referring Provider Family Medicine; Visit Provider Surgery
PROC: 0DJD8ZZ Inspection of Lower Intestinal Tract, Via Natural or Artificial Opening Endoscopic (ICD-10-PCS; CPT 45378; principal; 2023-02-02 10:25)
DX: K57.30 Diverticulosis of large intestine without perforation or abscess without bleeding (principal); K64.9 Unspecified hemorrhoids; Z87.891 Personal history of nicotine dependence; R93.3 Abnormal findings on diagnostic imaging of other parts of digestive tract; I10 Essential (primary) hypertension
CPT/HCPCS: 45378; J7120; J2405

== ENCOUNTER → 2023-03-01 | Outpatient (CLI) | payer OTHER, SELFPAY ==
--- NOTE | 2023-03-01 09:11 | ECHOD_ITS ---
Reason For Study: Aortic Insufficiency Procedure This was a 2D Doppler, Color Flow transthoracic echocardiogram. Exam performed in department. Left Ventricle Normal LV size. Mild concentric left ventricular hypertrophy. Left ventricular systolic function is normal. The estimated ejection fraction is 60 %. Diastolic function is indeterminate. No regional wall motion abnormalities noted. Right Ventricle Normal RV size. Normal systolic function. Atria The left atrium is mildly enlarged. Normal right atrium. Mitral Valve There is Mild focal posterior mitral annular calcification. There is no mitral valve stenosis. Mild (1+) mitral valve insufficiency. Tricuspid Valve Normal tricuspid valve. Mild (1+) tricuspid valve insufficiency. Right ventricular systolic pressure estimated to be 30 mmHg. Aortic Valve Trisinus/trileaflet aortic valve. Mild diffuse aortic valve thickening. Mild focal aortic valve calcification. Mild aortic stenosis. Peak aortic valve gradient 30 mmHg. Mean aortic valve gradient 16 mmHg. Moderate (2+) aortic valve insufficiency. Pulmonic Valve Normal pulmonic valve. Great Vessels Mildly dilated aortic root. Pericardium/Pleural No pericardial effusion. MMode/2D Measurements & Calculations LVIDd: 4.2 cm IVSd: 1.3 cm LVOT diam: 2.0 cm LVIDs: 2.9 cm LVPWd: 1.3 cm LVOT area: 3.1 cm2 RVDd: 3.3 cm FS: 29.5 % Ao root diam: 4.2 cm LAV(MOD-bp): 68.0 ml LVAd ap4: 32.2 cm2 LAV(MOD-bp) Indexed: 34.1 ml/m2 LVLd ap4: 8.1 cm LAV(MOD-sp2): 73.9 ml EDV(MOD-sp4): 106.7 ml LAV(MOD-sp4): 53.8 ml EDV(sp4-el): 109.0 ml LVAs ap4: 19.5 cm2 LVLs ap4: 6.9 cm ESV(MOD-sp4): 45.6 ml ESV(sp4-el): 46.8 ml EF(MOD-sp4): 57.3 % EF(sp4-el): 57.1 % LVAd ap2: 30.5 cm2 SV(MOD-sp4): 61.1 ml SV(MOD-sp2): 54.4 ml LVLd ap2: 8.2 cm EDV(MOD-sp2): 97.6 ml EDV(sp2-el): 96.3 ml LVAs ap2: 19.0 cm2 LVLs ap2: 7.2 cm ESV(MOD-sp2): 43.2 ml ESV(sp2-el): 42.3 ml EF(MOD-sp2): 55.8 % SV(sp4-el): 62.3 ml LA dimension(2D): 4.7 cm LA A4 area: 19.7 cm2 RA A4 area: 17.8 cm2 TAPSE: 2.0 cm Time Measurements MV dec time: 0.37 sec Doppler Measurements & Calculations MV E max tigre: 57.1 cm/sec Lat Peak E' Tigre: 6.2 cm/sec Med Peak E' Tigre: 4.2 cm/sec MV A max tigre: 107.2 cm/sec E/E' lat: 9.3 E/E' med: 13.7 MV E/A: 0.53 Ao V2 max: 275.0 cm/sec AI max tigre: 525.4 cm/sec MV dec slope: 155.5 cm/sec2 Ao max P.3 mmHg AI max P.5 mmHg Ao V2 mean: 184.0 cm/sec Ao mean P.8 mmHg AI dec slope: 283.4 cm/sec2 Ao V2 VTI: 64.2 cm AI P1/2t: 543.1 msec AV (velocity ratio): 0.60 THIAGO(I,D): 1.9 cm2 THIAGO(V,D): 1.7 cm2 LV V1 max: 148.0 cm/sec SV(LVOT): 119.5 ml PA V2 max: 94.8 cm/sec LV V1 max P.8 mmHg LV V1 mean P.3 mmHg LV V1 mean: 109.0 cm/sec LV V1 VTI: 38.4 cm TR max tigre: 233.8 cm/sec TR max P.9 mmHg ECHO/Echo Complete Interpretation Summary The estimated ejection fraction is 60 %. The left atrium is mildly enlarged. Mild (1+) mitral valve insufficiency. Mild (1+) tricuspid valve insufficiency. Right ventricular systolic pressure estimated to be 30 mmHg. Mild aortic stenosis. Moderate (2+) aortic valve insufficiency. Ordering Physician: Graeth Bryant Referring Physician: Benny Villalobos MD Performed By: Hansa Alamo RDCS
== END | disposition home or self-care (01) ==
LOC: PSN 09:09
PROVIDERS: PCP Family Medicine; Referring Provider Nurse Practitioner Family; Visit Provider Nurse Practitioner Family
DX: I35.1 Nonrheumatic aortic (valve) insufficiency (principal)
CPT/HCPCS: 93225; 93226; 93306

== ENCOUNTER → 2023-05-07 | Outpatient (CLI) | payer OTHER, SELFPAY ==
--- NOTE | 2023-05-07 13:03 | BI_ITS ---
MAMMOGRAPHY - BILATERAL SCREENING REASON FOR EXAM: Female, 62 years old. Routine annual screening examination. PERTINENT HISTORY: Non-contributory. TECHNIQUE: Digital bilateral breast vishnu (3D mammographic acquisition) in the CC and MLO projections. 2-D mediolateral oblique (MLO) and craniocaudad (CC) views of both breasts were obtained. CAD: Full Field Digital Mammography with Computer Added Detection was performed. COMPARISON: Comparison is made with prior study dated April 27, 2022 and April 25, 2021. FINDINGS: Breast Composition: There are scattered areas of fibroglandular density. There are no dominant masses or suspicious calcifications. Stable benign appearing bilateral axillary lymph nodes. No other significant abnormalities are identified. There has been no significant change since the prior study. BI/SCRN MAMM (CAD)W/VISHNU BILAT IMPRESSION: Stable bilateral screening mammogram. Yearly follow-up mammogram recommended. (A) ASSESSMENT CATEGORY: BIRADS Category 2: Benign. A letter regarding these results will be sent to the patient by the facility within 30 days. Approximately 10% of breast cancers are not detected by mammography. A normal mammogram should not delay biopsy of a clinically suspicious abnormality. [id number] Electronically Signed: Duy Coppola MD at 15:22 EDT ,
== END | disposition home or self-care (01) ==
LOC: OPBI 13:02
PROVIDERS: PCP Family Medicine; Referring Provider Obstetrics & Gynecology; Visit Provider Obstetrics & Gynecology
DX: Z12.31 Encounter for screening mammogram for malignant neoplasm of breast (principal)
CPT/HCPCS: 77063; 77067

== ENCOUNTER → 2023-05-18 | Outpatient (CLI) | payer OTHER, SELFPAY ==
--- NOTE | 2023-05-18 08:02 | RAD_ITS ---
STUDY: XR Knee Complete 4 Views or More 05/20/2023 2:35 PM REASON FOR EXAM: Female, 62 years old. R inferior lateral knee pain TECHNIQUE: XR Knee Complete 4 Views or More RIGHT COMPARISON: None FINDINGS: Normal visualized distal femur. Normal visualized proximal tibia and fibula. Normal proximal tibiofibular articulation. There is mild degenerative arthrosis of the medial femorotibial compartment. There is mild degenerative arthrosis of the lateral femorotibial compartment. There is mild degenerative arthrosis of the patellofemoral articulation. The soft tissue structures are unremarkable. RAD/Knee 4 or More Views IMPRESSION: Degenerative arthrosis. Electronically Signed: Suresh Mathis MD at 14:37 EDT ,
== END | disposition home or self-care (01) ==
PROVIDERS: PCP Family Medicine; Referring Provider Family Medicine; Visit Provider Family Medicine
DX: M25.561 Pain in right knee (principal)
CPT/HCPCS: 73564

== ENCOUNTER → 2023-06-02 | Outpatient (CLI) | payer OTHER, SELFPAY ==
--- NOTE | 2023-06-02 07:00 | MRI_ITS ---
INDICATION: RT KNEE OSTEOARTHRITIS EXAMINATION: MRI - RIGHT MR Knee W/O Contrast TECHNIQUE: Multiplanar and multisequence MR images of the RIGHT knee. IV Contrast Dosage and Agent: None. COMPARISON: FINDINGS: BONE: Tricompartmental chondromalacia and osteoarthritis. JOINT: Small suprapatellar joint effusion. No synovial hypertrophy, or intra-articular body. MUSCLES: Unremarkable. MENISCI: Medial and lateral menisci unremarkable. CRUCIATE LIGAMENTS: Anterior and posterior cruciate ligaments are intact. COLLATERAL LIGAMENTS: Medial collateral ligament and lateral collateral ligamentous complex, inclusive of the popliteal tendon, are intact. CARTILAGE: See above. OTHER SOFT TISSUES: Moderate sized Bishop''s cyst. This partially ruptured with fluid tracking along the medial head of the gastrocnemius. Moderate subcutaneous edema anterior to the patella and patellar tendon. MRI/Lower Ext Joint Only (Routine) IMPRESSION: Moderate sized Bishop''s cyst which is partially ruptured. Small suprapatellar joint effusion. Subcutaneous edema anterior to patella and patellar tendon. Tricompartmental chondromalacia and osteoarthritis as above. Electronically Signed: Paul Barber MD at 11:52 EDT ,
== END | disposition home or self-care (01) ==
LOC: MRI 06:56
PROVIDERS: PCP Family Medicine; Referring Provider Orthopaedic Surgery; Visit Provider Orthopaedic Surgery
DX: M17.11 Unilateral primary osteoarthritis, right knee (principal)
CPT/HCPCS: 73721

== ENCOUNTER 2023-06-20 19:35 | Inpatient (IN) | payer OTHER, SELFPAY ==
[2023-06-20 19:37] VITALS: BP 194/86; PULSE 78; RESP 18; TEMP 36.6; O2SAT 98; BMI 32.1
--- NOTE | 2023-06-20 19:46 | NURSING ---
OFFERED TO PLACE AN IV IN THE PT AND SHE BECAME VERY DEFENSIVE AND ASKED,'WHY? MADE PT AWARE IT WOULD BE USED FOR LAB DRAWS, IV CONTRAST AND TO GIVE MEDICATION. PLACED TOURNEQUET ON AND THE PT ASKED,DO I NEED TO GO TO [place]? PT INFORMED THAT SHE IS FREE TO GO TO ANY PLACE SHE WOULD LIKE.PT WAS CLEAR SHE WAS STAYING FOR NOW BEFORE THIS NURSE ATTEMPTED IV. ATTEMPTED IV IN [facility] AND WAS UNSUCCESSFUL. PT NOT HAPPY.VOICED,'THEY ALWAYS GO IN MY HAND. EXPLAINED TO HER ABOUT CAT SCAN AND IV DYE. PT DID NOT APPEAR TO BE CONVINCED. DID NOT ATTEMPT AGAIN.EMPATHY GIVEN
[2023-06-20 21:12] LABS: Absolute Lymphocyte Count 3.28 X10^3/uL (0.83-4.51); Absolute Neutrophil Count 5.7 X10^3/uL (2.0-7.7); Basophil# 0.09 X10^3/uL; Basophil% 0.9 % (0-1); Eosinophil# 0.19 X10^3/uL; Eosinophils% 1.9 % (0-5); Hematocrit 44.4 % (37-47); Lymphocyte # 3.28 X10^3/ul (0.83-4.51); Lymphocyte % 32.4 % (19-41); Mean Corp Hgb Conc 31.5 g/dL (32-36); Mean Corpuscular Volume 92.1 fL (81-99); Mean Platelet Vol. 9.8 fl (6.2-12.0); Monocyte# 0.76 X10^3/uL; Monocyte% 7.5 % (0-10); NRBC Flagged by Analyzer 0 % (0-5); Neutrophil # 5.74 X10^3/uL (2.7-7.7); Neutrophil % 56.8 % (47-70); Platelet Count 416 K/mm3 (150-450); RBC Distribution Width CV 13.2 % (11.6-14.6); RBC Distribution Width SD 44.4 fl (35.1-43.9); Red Blood Count 4.82 M/mm3 (4.2-5.4); White Blood Count 10.1 K/mm3 (4.4-11.0)
--- NOTE | 2023-06-20 21:22 | CT_ITS ---
STUDY: CT ABDOMEN AND PELVIS WITH CONTRAST REASON FOR EXAM: Female, 62 years old. Abdominal pain RADIATION DOSAGE (If Supplied By Facility): CTDIvol = ( 21.19 ) mGy, DLP = ( 1175.73 ) mGycm TECHNIQUE: Spiral CT imaging of the abdomen and pelvis was performed with intravenous contrast material (Gastrografin and amp; 100mL Isovue-370 / ), followed by coronal and sagittal reformatting. Individualized dose optimization techniques were used for this CT. COMPARISON: No relevant priors. FINDINGS: LOWER CHEST: Mild bibasilar dependent atelectasis versus scar formation. Borderline cardiomegaly. Aortic root and mitral annular calcification. Normal pericardium. LIVER: Mild diffuse homogeneous hypoattenuation of the liver parenchyma. GALLBLADDER AND BILIARY TREE: Normal gallbladder. Normal biliary ductal system. SPLEEN: Normal PANCREAS: Normal. ADRENAL GLANDS: Normal KIDNEYS AND URETERS: Normal kidneys. Normal ureters. BOWEL: Stomach is normal. There is moderate fluid and gaseous distention of short segment small bowel in the lower left anterior pelvic cavity which measures up to 6 cm and which appears to be partially twisted upon its mesentery. There is moderate diverticular disease of the descending and sigmoid colonic segments without pericolonic inflammatory stranding.. PERITONEUM: No free intraperitoneal air or fluid. No intra-abdominal fluid collection. LYMPH NODES: No mesenteric, retroperitoneal, or pelvic lymphadenopathy. VESSELS: Normal URINARY BLADDER: Normal REPRODUCTIVE ORGANS: Uterus is surgically absent. ABDOMINAL WALL: Normal BONES: Normal CT/Abdomen/Pelvis WITH Contrast IMPRESSION: 1. Partial small bowel obstruction in the lower left anterior pelvic cavity with short segment of small bowel measuring up to 6 cm in diameter 2. Descending and sigmoid colonic diverticulosis without evidence of acute articularis. 3. Mild fatty infiltration of the liver. Electronically Signed: Brett Morfin MD at 23:38 EST ,
--- NOTE | 2023-06-20 21:23 | ED.VIS.GI ---
HPI HPI - GI History of Present Illness Chief Complaint: Abd Pain Detail of Chief Complaint: Abdominal pain Informant: patient Narrative Narrative: Patient presents to the emergency department complaint of abdominal pain that started this morning. Patient states that she was then weeding for about an hour and then started having more pain in her abdomen. She is concerned because about 6 months ago she had diverticulitis with microperforation requiring surgery. She has had partial bowel resection. She has history of bowel obstruction. She has had prior hysterectomy and prior appendectomy. Patient describes nausea but no vomiting. She denies blood in her stool or black tarry stool. She denies fevers. She denies urinary symptoms. [facility] Medical History Abnormal EKG Acute diverticulitis Anxiety Cardiology follow-up encounter Dyspnea on exertion Essential hypertension Failure of outpatient treatment Fatigue First degree AV block Former smoker History of diverticulitis History of echocardiogram History of transesophageal echocardiography (ALONDRA) Hx of small bowel obstruction Nonrheumatic aortic valve insufficiency Obesity Post-menopausal Prolonged QT interval SBO (small bowel obstruction) Small bowel obstruction Wears glasses Home Medications olmesartan 40 mg tablet 20 mg PO QHS bp 08/30/21 [History Last Taken 11/22/22 21:00] potassium chloride 20 mEq tablet,extended release(part/cryst) (Klor-Con M) 20 meq PO DAILY potassium supplement 11/23/22 [History Last Taken 11/22/22 21:00] iodine 150 mcg tablet 150 mcg PO DAILY 06/20/23 [History Last Taken Unknown] multivitamin (Daily Multi-Vitamin tablet) 1 tab PO DAILY 06/20/23 [History Last Taken Unknown] vitamin B complex (B Complex-Vitamin B12 tablet) 1 tab PO DAILY 06/20/23 [History Last Taken Unknown] Allergy/AdvReac Type Severity Reaction Status Date / Time hydrochlorothiazide AdvReac Severe SEVERE Verified 06/20/23 19:40 HYPOKALEMIA, hospitalized for it bee venom protein (honey bee) AdvReac Swelling Verified 06/20/23 19:40 codeine AdvReac Other Verified 06/20/23 19:40 Family History Uncle Diabetes Aunt Diabetes Surgical History H/O total hysterectomy History of appendectomy History of bowel resection History of cardiac catheterization History of right and left heart catheterization (02/10/19) Social History Smoking Status: Former smoker quit date: 08/13/12 pack-years: 10 alcohol intake: current details: social substance use type: does not use caffeine: Yes what type of physical activity do you participate in: bicycling and yoga frequency: 5-6 times per week seatbelt use: always do you feel safe at home: Yes 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 ROS ED Review of Systems ROS Unobtainable: other Constitutional Constitutional ED: Reports lethargy; Denies chills, fever(s), sweats or weight loss Eyes Eyes: Denies blurry vision, change in vision or diplopia ENT ENT ED: Denies rhinorrhea or sore throat Cardiovascular Cardiovascular: Denies chest pain, orthopnea or racing heartbeat Respiratory/Chest Respiratory/Chest: Denies cough, dyspnea, dyspnea on exertion, orthopnea or sputum Gastrointestinal Gastrointestinal: Reports abdominal pain and nausea; Denies diarrhea or vomiting Genitourinary Genitourinary ED: Denies dysuria, hematuria or urinary frequency Musculoskeletal Musculoskeletal: Denies arthralgias, back pain, myalgias or neck pain Integumentary Denies abscess, Abrasions or rash Neurologic Neurologic: Denies headache(s) or weakness Psychiatric Psychiatric: Denies anxiety, depression or suicidal thoughts Endocrine Endocrinology: Denies polydipsia, polyphagia or polyuria Hematologic/Lymphatic Hematologic/Lymphatic: Denies easy bleeding, easy bruising or lymphadenopathy Allergic/Immunologic Allergic/Immunologic ED: Denies mouth swelling, tongue swelling or urticaria EXAM Physical Exam Const Vital Signs: 06/20/23 19:37 Temperature 97.9 F Temperature Source Temporal Pulse Rate 78 Respiratory Rate 18 Blood Pressure 194/86 H Blood Pressure Mean 122 Pulse Ox 98 Oxygen Delivery Method Room Air Positive well nourished and well developed General Appearance ED: well developed and NAD HEENT Reports TM's clear and moist mucous membranes normocephalic and atraumatic; Negative for trauma or tenderness Tympanic Membrane ED: Yes TM's clear Eyes PERRL and EOMs intact bilaterally General Eye ED: Negative for pale conjunctiva or scleral icterus Neck no lymphadenopathy, supple and no JVD General: Negative for tenderness Chest Wall inspection of chest normal and palpation of chest normal Chest: Negative for tenderness Resp normal respiratory effort and clear to auscultation bilaterally Effort and Inspection: Negative for respiratory distress or pain with movement Auscultation: Negative for rhonchi, wheezes or diminished lung sounds Cardio regular rate, regular rhythm, S1 normal heart sound, S2 normal heart sound and no murmurs Peripheral Pulses: pulses 2+ throughout GI soft to palpation, non-distended and no masses GI Narrative: Patient's abdomen with hyperactive bowel sounds and slightly distended. Diffuse tenderness to palpation but especially to the right lower abdomen. There is guarding. There is no rebound, rigidity, or peritoneal signs Back/Spine no CVA tenderness and no thoracic nor lumbar tenderness Extremity normal to inspection General Extremety ED: Negative for edema General Extremity: Negative for edema Neuro oriented x3, CN's II-XII intact bilaterally, no sensory deficits noted and gait normal Sensorium / Orientation: awake, alert, oriented to person, oriented to place and oriented to time Motor Exam: strength 5/5 throughout and strength abnormal Psych mental status grossly normal Skin no rashes or lesions noted and no wounds MDM MDM MDM Narrative Medical decision making narrative: Presented with abdominal pain that started earlier this morning. Patient with history of prior bowel obstruction and bowel perforation that required partial colectomy. IV line established. CBC with differential white count of 10.1 with hemoglobin 14 and platelet count of 416. Chemistries unremarkable. BUN 15 and creatinine 1.07. Lactate was normal at 1.2. LFTs were normal. Urinalysis unremarkable. CT scan of the abdomen pelvis with IV and p.o. contrast showed partial small bowel obstruction. Case discussed with general surgeon on-call Dr. Villafuerte who recommended NG to low intermittent suction and she will likely require a small bowel follow-through tomorrow. We will discuss case with hospitalist to evaluate patient for admission. Patient initially medicated with morphine and Zofran. She continued to complain of pain and will order a milligram of Dilaudid IV. Lab Data Labs: Laboratory Results - last 24 hr 06/20/23 06/20/23 06/20/23 20:50 21:10 23:02 WBC 10.1 RBC 4.82 Hgb 14.0 Hct 44.4 MCV 92.1 MCH 29.0 MCHC 31.5 L RDW Std Deviation 44.4 H RDW Coeff of Bhavya 13.2 Plt Count 416 MPV 9.8 Immature Gran % (Auto) 0.500 Neut % (Auto) 56.8 Lymph % (Auto) 32.4 [place] % (Auto) 7.5 Eos % (Auto) 1.9 Baso % (Auto) 0.9 Absolute Neuts (auto) 5.7 Absolute Lymphs (auto) 3.28 Nucleated RBC % 0 Sodium 138 Potassium 3.5 Chloride 106 Carbon Dioxide 27.0 Anion Gap 5 BUN 15 Creatinine 1.07 H Estim Creat Clear Calc 51.65 Est GFR (MDRD) Af Amer 66 Est GFR (MDRD) Non-Af 55 L BUN/Creatinine Ratio 14.0 Glucose 118 H Lactic Acid 1.2 Calcium 9.1 Total Bilirubin 0.30 AST 27 ALT 50 Alkaline Phosphatase 94 Total Protein 7.7 Albumin 4.0 Globulin 3.7 Albumin/Globulin Ratio 1.1 Urine Color Cancelled Urine Clarity Cancelled Urine pH Cancelled Ur Specific [place] Cancelled U Specif Grav (Refrac) Cancelled Urine Protein Cancelled Urine Glucose (UA) Cancelled Urine Ketones Cancelled Urine Occult Blood Cancelled Urine Nitrite Cancelled Urine Bilirubin Cancelled Urine Urobilinogen Cancelled Ur Leukocyte Esterase Cancelled Urine RBC Cancelled Urine WBC Cancelled Ur Squamous Epith Cells Cancelled Ur Transition Epith Cell Cancelled Ur Renal Epithelial Cell Cancelled Calcium Oxalate Crystal Cancelled Uric Acid Crystals Cancelled Triple Phos Crystals Cancelled Other Crystals Cancelled Amorphous Sediment Cancelled Urine Bacteria Cancelled Hyaline Casts Cancelled Fine Granular Casts Cancelled Coarse Granular Casts Cancelled Waxy Casts Cancelled RBC Casts Cancelled WBC Casts Cancelled Urine Mucus Cancelled Urine Trichomonas Cancelled Urine Yeast Cancelled Radiography Diagnostic Testing: Clinical Impression(s) from Imaging Studies Abdomen/Pelvis CT 06/20/23 21:22 IMPRESSION: 1. Partial small bowel obstruction in the lower left anterior pelvic cavity with short segment of small bowel measuring up to 6 cm in diameter 2. Descending and sigmoid colonic diverticulosis without evidence of acute articularis. 3. Mild fatty infiltration of the liver. Electronically Signed: Brett Morfin MD at 23:38 EST , Discharge Plan Triage Chief Complaint: Abd Pain ED Provider: Patrice Schmidt Dx/Rx/DC Orders Clinical Impression: Small bowel obstruction, Abdominal pain, Hypertension Prescriptions: No Action potassium chloride [Klor-Con M20] 20 mEq tablet,ER particles/crystals 20 meq PO DAILY vitamin B complex [B Complex-Vitamin B12] Tablet 1 tab PO DAILY iodine 150 mcg tablet 150 mcg PO DAILY multivitamin [Daily Multi-Vitamin] Tablet 1 tab PO DAILY olmesartan 40 mg tablet 20 mg PO QHS Primary Care Provider: Benny Villalobos Referrals: Benny Villalobos MD [Primary Care Provider] - Disposition Disposition: Acute Care Hospital [facility]
[2023-06-20 21:33] LABS: ALB/GLOB Ratio 1.1 RATIO (0.9-2.4); AST(SGOT) 27 U/L (15-37); Alanine Aminotransfer ALT/SGPT 50 U/L (13-56); Alkaline Phosphatase 94 U/L (45-117); Anion Gap 5 (5-15); BUN 15 mg/dL (7-18); Calcium,Total 9.1 mg/dL (8.5-10.1); Chloride 106 mmol/L (98-107); Creatinine, Serum 1.07 mg/dL (0.55-1.02); EST Glomerular Filtration Rate 55 mL/min (>60); Est Glom Filt Rate - Afr Amer 66 mL/min (>60); Estimated Creatinine Clearance 51.65 ml/min; Globulin 3.7 g/dL (2.2-4.2); Glucose 118 mg/dL (74-106); Potassium 3.5 mmol/L (3.5-5.1); Protein, Total 7.7 g/dL (6.4-8.2); Sodium Level 138 mmol/L (136-145)
[2023-06-20] MEDS: Ondansetron 4 MG/2 ML Vial IV (21:52)
[2023-06-20] MEDS: 0.9% Normal Saline (1000mL) 1,000 ML 150 ML IV (21:52)
[2023-06-20] MEDS: Morphine 4 MG/ML Syringe IV (21:54)
[2023-06-20 22:20] LABS: Lactic Acid 1.2 mmol/L (0.4-1.9)
[2023-06-21] VITALS (8 sets, daily range): BP systolic 124–172; BP diastolic 66–86; PULSE 64–89; RESP 14–18; TEMP 36.5–36.8; O2SAT 95–100; BMI 31.7; BMI 33.8
[2023-06-21] MEDS: HYDROmorphone 1 MG/ML Syringe IV (00:07)
--- NOTE | 2023-06-21 00:08 | HP.PCM.HOS_ITS ---
[facility] - General General Date of Admission: 06/21/23 Date of Service: 06/21/23 Chief Complaint: Abdominal pain HPI Narrative JASSON GRIMALDO, is a 62 F with a past medical history of essential hypertension, former history of tobacco abuse (quit 2012), history of nonrheumatic aortic valve insufficiency, obesity with BMI of 32.1 this admission, history of small bowel obstruction and history of diverticulitis with microperforation requiring surgery approximately 6 months ago who presents to [facility] ER complaining of abdominal pain. Ms. Grimaldo reports her symptoms began on the morning of 06/20/2023 with her abdominal pain being made worse after she spent an hour weeding and gardening. She admits to nausea but denies vomiting. She claims she is still having flatus and able to have bowel movements. She denies blood in her stools or black and tarry stools. She also denies fevers, chills or dysuria. In the ER her CT scan of the abdomen and pelvis was positive for evidence of a partial small bowel obstruction with associated clinical evidence of intractable abdominal pain and she was then admitted to the general medical floor for ongoing care for a stay that is expected to be greater than 48 hours. [facility] Medical History Abnormal EKG Acute diverticulitis Anxiety Cardiology follow-up encounter Dyspnea on exertion Essential hypertension Failure of outpatient treatment Fatigue First degree AV block Former smoker History of diverticulitis History of echocardiogram History of transesophageal echocardiography (ALONDRA) Hx of small bowel obstruction Nonrheumatic aortic valve insufficiency Obesity Post-menopausal Prolonged QT interval SBO (small bowel obstruction) Small bowel obstruction Wears glasses Home Medications olmesartan 40 mg tablet 20 mg PO QHS bp 08/30/21 [History Last Taken 11/22/22 21:00] potassium chloride 20 mEq tablet,extended release(part/cryst) (Klor-Con M) 20 meq PO DAILY potassium supplement 11/23/22 [History Last Taken 11/22/22 21:00] iodine 150 mcg tablet 150 mcg PO DAILY 06/20/23 [History Last Taken Unknown] multivitamin (Daily Multi-Vitamin tablet) 1 tab PO DAILY 06/20/23 [History Last Taken Unknown] vitamin B complex (B Complex-Vitamin B12 tablet) 1 tab PO DAILY 06/20/23 [History Last Taken Unknown] Allergy/AdvReac Type Severity Reaction Status Date / Time hydrochlorothiazide AdvReac Severe SEVERE Verified 06/20/23 19:40 HYPOKALEMIA, hospitalized for it bee venom protein (honey bee) AdvReac Swelling Verified 06/20/23 19:40 codeine AdvReac Other Verified 06/20/23 19:40 Family History Uncle Diabetes Aunt Diabetes Surgical History H/O total hysterectomy History of appendectomy History of bowel resection History of cardiac catheterization History of right and left heart catheterization (02/10/19) Social History Smoking Status: Former smoker quit date: 08/13/12 pack-years: 10 alcohol intake: current details: social substance use type: does not use caffeine: Yes what type of physical activity do you participate in: bicycling and yoga frequency: 5-6 times per week seatbelt use: always do you feel safe at home: Yes 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 Narrative Review of systems: Constitutional: She admits to lethargy but denies fevers, chills, sweats or weight loss Eyes: Patient denies blurry vision or changes in her vision ENT: Patient denies runny nose or sore throat Cardiovascular: Patient denies chest pain or palpitations Respiratory: Patient denies shortness of breath or cough Gastrointestinal: Patient reports abdominal pain and nausea but denies diarrhea or vomiting Genitourinary: Patient denies dysuria hematuria or urinary frequency Musculoskeletal: Patient denies back pain, neck pain, arthralgias and myalgias Integumentary: Patient denies abrasions abscess or rash Neurologic: Patient denies headache or focal neurologic deficits Psychiatric: Patient denies anxiety depression or suicidal thoughts Endocrine: Patient denies polydipsia polyphagia or polyuria Hematologic: She denies easy bleeding, easy bruising or lymphadenopathy Allergic: Denies mild swelling, tongue swelling or urticaria 14 point review of systems otherwise negative except for positives noted in HPI above. Vital Signs Vital Signs Vital Signs: 06/20/23 19:37 Temperature 97.9 F Temperature Source Temporal Pulse Rate 78 Respiratory Rate 18 Blood Pressure 194/86 H Blood Pressure Mean 122 Pulse Ox 98 Oxygen Delivery Method Room Air Weight Weight: 205 lb Body Mass Index (BMI) 32.1 Physical Exam Const alert, oriented x3 and no apparent distress General Appearance: cooperative HEENT normocephalic, head/scalp atraumatic, hearing grossly normal bilaterally and moist oral mucous membranes HEENT Narrative: Oropharynx dry. Eyes PERRL, EOMs intact bilaterally and conjunctivae normal Neck no lymphadenopathy, supple, no JVD and no carotid bruits Resp normal respiratory effort, no retractions, no use of accessory muscles and clear to auscultation bilaterally Cardio regular rate and regular rhythm GI GI Narrative: Patient's abdomen is distended but not tender. Has an NG tube placed to intermittent wall suction with approximately 100 cc of NG tube aspirate in Vacutainer. Auscultation: hypoactive bowel sounds Extremity normal to inspection, full ROM and no clubbing, cyanosis or edema Neuro oriented x3, CN's II-XII intact bilaterally and moves all extremities Sensorium / Orientation: awake, alert, oriented to person, oriented to place and oriented to time Speech: speech normal Motor Exam: strength 5/5 throughout Psych affect normal Results Medical Records Data Attestation: I reviewed the patient's medical records Lab / Micro Data Attestation: I reviewed the patient's lab results. 06/21/23 03:58 06/21/23 03:58 Labs: Laboratory Results - last 24 hr 06/20/23 20:50: WBC 10.1, RBC 4.82, Hgb 14.0, Hct 44.4, MCV 92.1, MCH 29.0, MCHC 31.5 L, RDW Std Deviation 44.4 H, RDW Coeff of Bhavya 13.2, Plt Count 416, MPV 9.8, Immature Gran % (Auto) 0.500, Neut % (Auto) 56.8, Lymph % (Auto) 32.4, [place] % (Auto) 7.5, Eos % (Auto) 1.9, Baso % (Auto) 0.9, Absolute Neuts (auto) 5.7, Absolute Lymphs (auto) 3.28, Nucleated RBC % 0, Sodium 138, Potassium 3.5, Chloride 106, Carbon Dioxide 27.0, Anion Gap 5, BUN 15, Creatinine 1.07 H, Estim Creat Clear Calc 51.65, Est GFR (MDRD) Af Amer 66, Est GFR (MDRD) Non-Af 55 L, BUN/Creatinine Ratio 14.0, Glucose 118 H, Calcium 9.1, Total Bilirubin 0.30, AST 27, ALT 50, Alkaline Phosphatase 94, Total Protein 7.7, Albumin 4.0, Globulin 3.7, Albumin/Globulin Ratio 1.1 06/20/23 21:10: Lactic Acid 1.2 06/20/23 23:02: Urine Color Cancelled, Urine Clarity Cancelled, Urine pH Cancelled, Ur Specific Social Circle Cancelled, U Specif Grav (Refrac) Cancelled, Urine Protein Cancelled, Urine Glucose (UA) Cancelled, Urine Ketones Cancelled, Urine Occult Blood Cancelled, Urine Nitrite Cancelled, Urine Bilirubin Cancelled, Urine Urobilinogen Cancelled, Ur Leukocyte Esterase Cancelled, Urine RBC Cancelled, Urine WBC Cancelled, Ur Squamous Epith Cells Cancelled, Ur Transition Epith Cell Cancelled, Ur Renal Epithelial Cell Cancelled, Calcium Oxalate Crystal Cancelled, Uric Acid Crystals Cancelled, Triple Phos Crystals Cancelled, Other Crystals Cancelled, Amorphous Sediment Cancelled, Urine Bacteria Cancelled, Hyaline Casts Cancelled, Fine Granular Casts Cancelled, Coarse Granular Casts Cancelled, Waxy Casts Cancelled, RBC Casts Cancelled, WBC Casts Cancelled, Urine Mucus Cancelled, Urine Trichomonas Cancelled, Urine Yeast Cancelled Radiology Impression Abdomen/Pelvis CT 06/20/23 21:22 IMPRESSION: 1. Partial small bowel obstruction in the lower left anterior pelvic cavity with short segment of small bowel measuring up to 6 cm in diameter 2. Descending and sigmoid colonic diverticulosis without evidence of acute articularis. 3. Mild fatty infiltration of the liver. Electronically Signed: Brett Morfin MD at 23:38 EST , Assessment & Plan Assessment/Plan (1) Partial small bowel obstruction: PLAN: Plan 1. Partial small bowel obstruction with severe abdominal pain - Admit to general medical floor. Continue NG tube to intermittent wall suction. Volume resuscitate and give IV antiemetics and IV pain medications as needed. Finally, we will consult Dr. Villafuerte of general surgery to see this patient on rounds in the a.m. for further recommendations with help appreciated in advance. 2. Essential hypertension - Give IV hydralazine as needed for systolic blood pressure greater than 160 mmHg. 3. Obesity with BMI of 32.1 this admission - Weight loss will be recommended. 4. History of nonrheumatic aortic valve insufficiency - Stable. 5. DVT prophylaxis - Lovenox 40 mg subcu daily. Total time: Approximately 40 minutes. Charges/Coding Visit Charges Inpatient E&M: 68371 Init Hosp L1
--- NOTE | 2023-06-21 00:16 | RAD_ITS ---
STUDY: X-RAY - ABDOMEN/PELVIS REASON FOR EXAM: Female, 62 years old. ng placement -- KUB with both diaphragms for NG/OG Verification TECHNIQUE: Single AP view of the abdomen / pelvis. COMPARISON: None. FINDINGS: Normal visualized lung bases. There is a nasogastric tube with the tip in the mid gastric region. Increased fecal debris within the colon suggestive of constipation. There is no demonstrated free abdominal air. Contrast material within the renal collecting system. Otherwise the visualized liver, spleen and kidneys are grossly normal in size and morphology. Normal soft tissue structures. Normal visualized osseous structures. RAD/Abdomen Single View (Portable) IMPRESSION: Nasogastric tube as described and in normal location. Electronically Signed: Rosanna Yarbrough MD at 1:22 EST ,
[2023-06-21] MEDS: Oxymetazoline 0.05% 1 SPRAY SPRAY.BTL 2 SPRAY NASAL (00:41)
[2023-06-21] MEDS: 0.9% Normal Saline (1000mL) 1,000 ML 100 ML IV ×3 (02:20→18:16)
--- NOTE | 2023-06-21 02:35 | RAD_ITS ---
STUDY: X-RAY - ABDOMEN/PELVIS REASON FOR EXAM: Female, 62 years old. Abdominal pain and distention compared TECHNIQUE: Two AP supine views of the abdomen and pelvis. COMPARISON: Earlier today FINDINGS: Normal visualized lung bases. Stable appearance of an NG tube There is an abundance of fecal material throughout the colon. There is no demonstrated free abdominal air. The visualized liver, spleen and kidneys are grossly normal in size and morphology. Normal soft tissue structures. Normal visualized osseous structures. RAD/Abdomen Single View (Portable) IMPRESSION: Retained stool throughout the colon No demonstrated ileus or obstruction, no demonstrated free air Stable appearance of a NG tube Electronically Signed: Alexsander Clarke MD at 10:11 EST ,
[2023-06-21 05:11] LABS: Absolute Lymphocyte Count 2.37 X10^3/uL (0.83-4.51); Absolute Neutrophil Count 5.9 X10^3/uL (2.0-7.7); Basophil# 0.07 X10^3/uL; Basophil% 0.8 % (0-1); Eosinophil# 0.13 X10^3/uL; Eosinophils% 1.4 % (0-5); Hematocrit 41.4 % (37-47); Hemoglobin 12.8 g/dL (12.0-15.0); Lymphocyte # 2.37 X10^3/ul (0.83-4.51); Lymphocyte % 25.7 % (19-41); Mean Corp Hgb Conc 30.9 g/dL (32-36); Mean Corpuscular Volume 93.9 fL (81-99); Mean Platelet Vol. 9.8 fl (6.2-12.0); Monocyte# 0.75 X10^3/uL; Monocyte% 8.1 % (0-10); NRBC Flagged by Analyzer 0 % (0-5); Neutrophil # 5.85 X10^3/uL (2.7-7.7); Neutrophil % 63.6 % (47-70); Platelet Count 376 K/mm3 (150-450); RBC Distribution Width CV 13.3 % (11.6-14.6); RBC Distribution Width SD 45.9 fl (35.1-43.9); Red Blood Count 4.41 M/mm3 (4.2-5.4); White Blood Count 9.2 K/mm3 (4.4-11.0)
[2023-06-21 05:46] LABS: ALB/GLOB Ratio 1.1 RATIO (0.9-2.4); AST(SGOT) 26 U/L (15-37); Alanine Aminotransfer ALT/SGPT 48 U/L (13-56); Albumin, Serum 3.6 g/dL (3.2-5.0); Alkaline Phosphatase 84 U/L (45-117); Anion Gap 7 (5-15); BUN 14 mg/dL (7-18); BUN/Creat Ratio 15.6 RATIO (10-20); Calcium,Total 8.7 mg/dL (8.5-10.1); Chloride 104 mmol/L (98-107); EST Glomerular Filtration Rate 67 mL/min (>60); Est Glom Filt Rate - Afr Amer 81 mL/min (>60); Estimated Creatinine Clearance 61.41 ml/min; Globulin 3.2 g/dL (2.2-4.2); Glucose 107 mg/dL (74-106); Magnesium 2.5 mg/dL (1.6-2.6); Potassium 4.1 mmol/L (3.5-5.1); Protein, Total 6.8 g/dL (6.4-8.2); Sodium Level 140 mmol/L (136-145)
[2023-06-21 06:29] LABS: Phosphorus 4.5 mg/dL (2.5-4.9)
--- NOTE | 2023-06-21 08:00 | RAD_ITS ---
CLINICAL HISTORY: Female, 62 years old. Limited Gastrografin small bowel follow-through examination. PROCEDURE: Gastrografin was introduced through the indwelling nasogastric tube. Immediate and 6 hour imaging was performed. Findings: On the immediate image, contrast is seen within the fundal portion of the stomach. At 6 hours, the entire colon down to the rectum is opacified. No evidence of bowel obstruction. Contrast is seen within the bladder from prior CT scan examination. RAD/Small Bowel Series Only IMPRESSION: On the 6 hour image, there is opacification of the entire bowel. Electronically Signed: Duy Coppola MD at 8:13 EST ,
--- NOTE | 2023-06-21 10:29 | EX.PCM.CON.S ---
Assessment & Plan Assessment/Plan (1) Partial small bowel obstruction: PLAN: This is a 62-year-old female who presents with signs and symptoms of a partial small bowel obstruction. She has a rather focally dilated loop of small bowel in the left lower quadrant that appeared twisted on CT scan, however there was not a clear transition point and patient's labs were all within normal limits. This morning her exam is relatively unremarkable. Based on the rather large diameter of this bowel in the absence of significant discomfort, I would question whether or not the patient has a bit of a chronic obstruction due to adhesions from her prior surgeries. With her normal labs and minimal tenderness on exam she has also minimal clear output from her nasogastric tube. Taking all of this together, I am hopeful this points to a high likelihood of success for a conservative approach to her small bowel obstruction. To this end I am recommending and initiating a small bowel follow-through via her nasogastric tube. I have shared with her, however, that if her clinical picture suggests that she would need an operation to resolve this issue, we would need further cardiac work-up and a transfer to a higher level of care for an operation?given her pre-existing aortic valvular insufficiency?may not be out of the question. She initially expresses resistance to this idea, but ultimately expresses understanding of her potentially heightened perioperative risk. ? Continue n.p.o. status ? Keep nasogastric tube clamped during small bowel follow-through unless patient expresses severe nausea, then return to suction and notify surgery immediately ? Maintain patient in aspiration precautions during small bowel follow-through ? Surgery will continue to follow and trend patient's abdominal exams HPI Consult Data Date of Consult: 06/21/23 HPI Narrative Reason for Consultation: Small bowel obstruction HPI Narrative: JASSON GRIMALDO, is a 62 F who presented to [facility] ER yesterday after experiencing approximately 1 hour of right-sided abdominal pain and associated nausea. She confirms that she has experienced rather regular bowel function and this included a bowel movement yesterday afternoon that was relatively unremarkable. She does admit, however, that she has not passed regular flatus. Her ER work-up was notable for normal CBC and lactic acid. CT imaging of the abdomen pelvis seem to show a partial small bowel obstruction with a segment of small bowel in the left lower quadrant that measured up to 6 cm in diameter. Given that her laboratories were normal and her exam was not consistent with a surgical abdomen she was admitted to the hospitalist service after placement of a nasogastric tube. Patient has a history of prior small bowel obstructions. 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 Shrestha which required a small bowel resection and anastomosis. More recently, however, in 2019 she was admitted for conservative management of a small bowel obstruction which was successful. This represents her latest obstructive episode from the past 24 hours. Beyond the above surgical history, patient has a history of transabdominal hysterectomy and then a appendectomy by Senior Karl. Patient's past medical history includes a diagnosis of aortic valvular insufficiency. She denies ever requiring any intervention for this diagnosis. She states that it has remained stable through all of her echocardiogram surveillance. She previously followed with Dr. Taylor, and generally follows with the heart group here in [place]. [facility] Medical History Abnormal EKG Acute diverticulitis Anxiety Cardiology follow-up encounter Dyspnea on exertion Essential hypertension Failure of outpatient treatment Fatigue First degree AV block Former smoker History of diverticulitis History of echocardiogram History of transesophageal echocardiography (ALONDRA) Hx of small bowel obstruction Nonrheumatic aortic valve insufficiency Obesity Post-menopausal Prolonged QT interval SBO (small bowel obstruction) Small bowel obstruction Wears glasses Home Medications olmesartan 40 mg tablet 20 mg PO QHS bp 08/30/21 [History Last Taken 11/22/22 21:00] potassium chloride 20 mEq tablet,extended release(part/cryst) (Klor-Con M) 20 meq PO DAILY potassium supplement 11/23/22 [History Last Taken 11/22/22 21:00] iodine 150 mcg tablet 150 mcg PO DAILY 06/20/23 [History Last Taken Unknown] multivitamin (Daily Multi-Vitamin tablet) 1 tab PO DAILY 06/20/23 [History Last Taken Unknown] vitamin B complex (B Complex-Vitamin B12 tablet) 1 tab PO DAILY 06/20/23 [History Last Taken Unknown] Allergy/AdvReac Type Severity Reaction Status Date / Time hydrochlorothiazide AdvReac Severe SEVERE Verified 06/20/23 19:40 HYPOKALEMIA, hospitalized for it bee venom protein (honey bee) AdvReac Swelling Verified 06/20/23 19:40 codeine AdvReac Other Verified 06/20/23 19:40 Family History Uncle Diabetes Aunt Diabetes Surgical History H/O total hysterectomy History of appendectomy History of bowel resection History of cardiac catheterization History of right and left heart catheterization (02/10/19) Social History Smoking Status: Former smoker quit date: 08/13/12 pack-years: 10 alcohol intake: current details: social substance use type: does not use caffeine: Yes what type of physical activity do you participate in: bicycling and yoga frequency: 5-6 times per week seatbelt use: always do you feel safe at home: Yes additional social history: Dante Physical Exam Const alert and oriented x3 Constitutional Narrative: Patient able to joke throughout her history taking Resp normal respiratory effort GI GI Narrative: Mildly distended, right paramedian scar well-healed. Lower midline laparotomy scar well-healed. Soft and minimal tenderness with palpation for all quadrants. Lab / Micro Data 06/21/23 03:58 06/21/23 03:58 Labs: Laboratory Results - last 24 hr 06/20/23 20:50: WBC 10.1, RBC 4.82, Hgb 14.0, Hct 44.4, MCV 92.1, MCH 29.0, MCHC 31.5 L, RDW Std Deviation 44.4 H, RDW Coeff of Bhavya 13.2, Plt Count 416, MPV 9.8, Immature Gran % (Auto) 0.500, Neut % (Auto) 56.8, Lymph % (Auto) 32.4, [place] % (Auto) 7.5, Eos % (Auto) 1.9, Baso % (Auto) 0.9, Absolute Neuts (auto) 5.7, Absolute Lymphs (auto) 3.28, Nucleated RBC % 0, Sodium 138, Potassium 3.5, Chloride 106, Carbon Dioxide 27.0, Anion Gap 5, BUN 15, Creatinine 1.07 H, Estim Creat Clear Calc 51.65, Est GFR (MDRD) Af Amer 66, Est GFR (MDRD) Non-Af 55 L, BUN/Creatinine Ratio 14.0, Glucose 118 H, Calcium 9.1, Total Bilirubin 0.30, AST 27, ALT 50, Alkaline Phosphatase 94, Total Protein 7.7, Albumin 4.0, Globulin 3.7, Albumin/Globulin Ratio 1.1 06/20/23 21:10: Lactic Acid 1.2 06/20/23 23:02: Urine Color Cancelled, Urine Clarity Cancelled, Urine pH Cancelled, Ur Specific [place] Cancelled, U Specif Grav (Refrac) Cancelled, Urine Protein Cancelled, Urine Glucose (UA) Cancelled, Urine Ketones Cancelled, Urine Occult Blood Cancelled, Urine Nitrite Cancelled, Urine Bilirubin Cancelled, Urine Urobilinogen Cancelled, Ur Leukocyte Esterase Cancelled, Urine RBC Cancelled, Urine WBC Cancelled, Ur Squamous Epith Cells Cancelled, Ur Transition Epith Cell Cancelled, Ur Renal Epithelial Cell Cancelled, Calcium Oxalate Crystal Cancelled, Uric Acid Crystals Cancelled, Triple Phos Crystals Cancelled, Other Crystals Cancelled, Amorphous Sediment Cancelled, Urine Bacteria Cancelled, Hyaline Casts Cancelled, Fine Granular Casts Cancelled, Coarse Granular Casts Cancelled, Waxy Casts Cancelled, RBC Casts Cancelled, WBC Casts Cancelled, Urine Mucus Cancelled, Urine Trichomonas Cancelled, Urine Yeast Cancelled 06/21/23 03:58: WBC 9.2, RBC 4.41, Hgb 12.8, Hct 41.4, MCV 93.9, MCH 29.0, MCHC 30.9 L, RDW Std Deviation 45.9 H, RDW Coeff of Bhavya 13.3, Plt Count 376, MPV 9.8, Immature Gran % (Auto) 0.400, Neut % (Auto) 63.6, Lymph % (Auto) 25.7, [place] % (Auto) 8.1, Eos % (Auto) 1.4, Baso % (Auto) 0.8, Absolute Neuts (auto) 5.9, Absolute Lymphs (auto) 2.37, Nucleated RBC % 0, Sodium 140, Potassium 4.1, Chloride 104, Carbon Dioxide 29.0, Anion Gap 7, BUN 14, Creatinine 0.90, Estim Creat Clear Calc 61.41, Est GFR (MDRD) Af Amer 81, Est GFR (MDRD) Non-Af 67, BUN/Creatinine Ratio 15.6, Glucose 107 H, Calcium 8.7, Phosphorus 4.5, Magnesium 2.5, Total Bilirubin 0.50, AST 26, ALT 48, Alkaline Phosphatase 84, Total Protein 6.8, Albumin 3.6, Globulin 3.2, Albumin/Globulin Ratio 1.1 Radiology Impression Abdomen/Pelvis CT 06/20/23 21:22 IMPRESSION: 1. Partial small bowel obstruction in the lower left anterior pelvic cavity with short segment of small bowel measuring up to 6 cm in diameter 2. Descending and sigmoid colonic diverticulosis without evidence of acute articularis. 3. Mild fatty infiltration of the liver. Electronically Signed: Brett Morfin MD at 23:38 EST , KUB X-Ray 06/21/23 00:16 IMPRESSION: Nasogastric tube as described and in normal location. Electronically Signed: Rosanna Yarbrough MD at 1:22 EST , KUB X-Ray 06/21/23 02:35 IMPRESSION: Retained stool throughout the colon No demonstrated ileus or obstruction, no demonstrated free air Stable appearance of a NG tube Electronically Signed: Alexsander Clarke MD at 10:11 EST , Charges/Coding Visit Charges Inpatient E&M: 48933 Init Hosp L2
--- NOTE | 2023-06-21 10:30 | CASEMGMT ---
RN CM Face to Face with patient for initial transition planning/care coordination assessment. RN CM introduced self and role at [facility]. Patient lying in bed, alert and oriented. Patient willing to participate in assessment and is able to answer all questions appropriately. Care providers, pharmacy, and demographics verified. Patient wishes to discharge home, denies need for home health at this time. Patient states she has no further needs or concerns at this time. CM to follow for discharge planning needs that may arise. PCP: [facility] Specialists: JOSE, whanau support worker Preferred Pharmacy: [facility] Insurance: [employer] Prescription Benefit: yes Living Will/HPOA: yes, Praful Iyer LNOK: Living Arrangements: Patient lives with in a split level home with 6 steps and railing between levels. Patient states she is independent and able to ambulate stairs. Transportation: self, DME/HHC: Patient has crutches. No previous HHC or SNF Disposition Plan: Patient to discharge home with family support and follow-up plans in place. Kiesha LIUN, RN, CM
[2023-06-21] MEDS: Pantoprazole Sodium 40 MG in 0.9% Normal Saline (100mL MB+) 100 ML 330 MG IV (10:40)
--- NOTE | 2023-06-21 11:51 | PCM.HOSP.N ---
Hospitalist Note Patient reports feeling better than yesterday but still not passing flatus or having bowel movements. Surgery following, maintain n.p.o., NG tube clamped and patient undergoing small bowel follow-through. We will continue present management
[2023-06-21] MEDS: hydrALAZINE 20 MG/ML Vial 5 MG IV (14:33)
[2023-06-22] MEDS: Acetaminophen 325 MG Tablet 650 MG PO
[2023-06-22] MEDS: 0.9% Normal Saline (1000mL) 1,000 ML 100 ML IV (03:31)
[2023-06-22 03:38] VITALS: BP 159/72; PULSE 70; RESP 16; TEMP 36.8; O2SAT 96
[2023-06-22 05:39] VITALS: BMI 31.8
--- NOTE | 2023-06-22 08:15 | PCM.PN.SRG ---
Subjective Subjective Patient had multiple bowel movements overnight. Tolerated clear liquids, ready go home Objective Data Objective Data Vital Signs: Vital Signs Temp Pulse Resp BP Pulse Ox O2 Del Method 98.3 F 70 16 159/72 H 96 Room Air 06/22/23 03:38 06/22/23 03:38 06/22/23 03:38 06/22/23 03:38 06/22/23 03:38 06/22/23 03:40 Oxygen Delivery Method Room Air Weight: 203 lb 4.259 oz Body Mass Index (BMI) 31.8 Intake & Output: Intake and Output for Last 24 Hours 06/20/23 06/21/23 06/22/23 23:59 23:59 23:59 Intake Total 2703.34 / 2703.34 925 / 925 Output Total 800 / 800 Balance 1903.34 / 1903.34 925 / 925 Lab / Micro Data 06/21/23 03:58 06/21/23 03:58 Radiography Diagnostic Testing: Radiology Impression KUB X-Ray 06/21/23 02:35 IMPRESSION: Retained stool throughout the colon No demonstrated ileus or obstruction, no demonstrated free air Stable appearance of a NG tube Electronically Signed: Alexsander Clarke MD at 10:11 EST , Small Bowel X-Ray 06/21/23 08:00 IMPRESSION: On the 6 hour image, there is opacification of the entire bowel. Electronically Signed: Duy Coppola MD at 8:13 EST , Physical Exam Const oriented x3 Resp normal respiratory effort Cardio regular rate GI soft to palpation and non-tender Inspection: Negative for abdominal distention Assessment & Plan Assessment/Plan (1) Partial small bowel obstruction: PLAN: Plan Patient small bowel follow-through did make it to the colon and patient on multiple bowel movements overnight. Tolerating clears. Will advance to fulls. If patient tolerates will DC home. Patient is agreeable plan. Kristin Caldwell M.D. Pager: [phone] [facility] [address] [place] [address], [facility], [address] [place] [address] Office: [phone] Charges/Coding Visit Charges Inpatient E&M: 49040 Subs Hosp L2
[2023-06-22 09:17] VITALS: BP 169/86; PULSE 80; RESP 16; TEMP 37.2; O2SAT 97
[2023-06-22] MEDS: Pantoprazole Sodium 40 MG in 0.9% Normal Saline (100mL MB+) 100 ML 330 MG IV (09:19)
--- NOTE | 2023-06-22 10:53 | DCINST_ITS ---
Discharge Instructions Diet Discharge Diet: Light diet - advance as tolerated Activity Discharge Activity: Return to Normal Activity Follow Up Care Test Results: Test results from this visit will be discussed in further detail at your follow- up appointment, if applicable. Discharge Plan Admission Admit Date/Time: 06/21/23 00:25 Primary Reason for Your Visit: Partial bowel obstruction Attending Provider: Carly Lorenz Primary Care Provider: Benny Villalobos Consulting Providers: Ben Villafuerte; Praful Vincent Instructions Patient Instructions: Bowel Obstruction Discharge Orders/Prescriptions Prescriptions: Continued potassium chloride [Klor-Con M20] 20 mEq tablet,ER particles/crystals 20 meq PO DAILY vitamin B complex [B Complex-Vitamin B12] Tablet 1 tab PO DAILY iodine 150 mcg tablet 150 mcg PO DAILY multivitamin [Daily Multi-Vitamin] Tablet 1 tab PO DAILY cholecalciferol (vitamin D3) [Vitamin D3] 1 tab PO DAILY vitamin B complex Tablet 1 tab PO DAILY coenzyme Q10 10 mg capsule PO clobetasol 0.05 % ointment 1 applic TOPICAL PRN olmesartan 40 mg tablet 20 mg PO QHS Referrals / Follow Up: Benny Villalobos MD [Primary Care Provider] - Within 1 Week Disposition Disposition (needs filled in before D/C Order can be placed): Home, Self Care
--- NOTE | 2023-06-22 10:55 | PCM.DC.SUM ---
Providers Date of Admission: 06/21/23 Date of Discharge: 06/22/23 Primary Care Physician: Dr. Benny Villalobos MD Consultations 06/21/23 00:35 Consult: General Surgery Routine Consulting Provider: Ben Villafuerte Reason for Consult: Partial small bowel obstruction EMERGENT Consult: No MD Notified: Yes Date Notified: 06/21/23 Time Notified: 00:35 Method of Notification: ED Physician Initiated Reason For Visit: ABDOMINAL PAIN, PARTIAL SMALL BOWEL OBSTRUCTION Diagnosis Discharge Diagnosis (1) Partial small bowel obstruction: Status: Resolved Code(s): K56.600 - Partial intestinal obstruction, unspecified as to cause Medications at Discharge Home Medications olmesartan 40 mg tablet 20 mg PO QHS bp 08/30/21 potassium chloride 20 mEq tablet,extended release(part/cryst) (Klor-Con M) 20 meq PO DAILY potassium supplement 11/23/22 iodine 150 mcg tablet 150 mcg PO DAILY supplement 06/20/23 multivitamin (Daily Multi-Vitamin tablet) 1 tab PO DAILY vitamin 06/20/23 vitamin B complex (B Complex-Vitamin B12 tablet) 1 tab PO DAILY vitamin 06/20/23 cholecalciferol (vitamin D3) 1 tab PO DAILY vitamin 06/21/23 clobetasol 0.05 % topical ointment 1 applic topical PRN health 06/21/23 coenzyme Q10 10 mg capsule mg PO supplement 06/21/23 vitamin B complex 1 tab PO DAILY vitamin 06/21/23 Hospital Course Summary of Care Provided Minutes Spent on Discharge: 31 Hospital Course: JASSON GRIMALDO, is a 62 F with a past medical history of essential hypertension, former history of tobacco abuse (quit 2012), history of nonrheumatic aortic valve insufficiency, obesity with BMI of 32.1 this admission, history of small bowel obstruction and history of diverticulitis with microperforation requiring surgery approximately 6 months ago who presents to [facility] ER complaining of abdominal pain. She was found to have a partial small bowel obstruction and NG tube was placed and general surgery consulted. Patient had small bowel follow-through that did make it to the colon with multiple bowel movements and resolution of symptoms, and she was removed and she tolerated clears and subsequent advance to full's. Patient feeling well and would like to go home, discussed with surgery. Patient discharged home in stable condition Physical Exam Narrative General: Alert, oriented, no apparent distress HEENT: Atraumatic, normocephalic Eyes: Anicteric, normal conjunctiva, extraocular movements grossly intact Neck: Supple Respiratory: Clear to auscultation bilaterally, normal respiratory effort Cardiovascular: Regular rate and rhythm GI: Soft, nontender, nondistended Extremities: No edema Musculoskeletal: Moving all extremities Neuro: No overt focal neurological deficits Skin: No rashes appreciated Psych: Cooperative Weight / BMI Weight Weight: 92.2 kg Body Mass Index (BMI) 31.8 ABG / Lab / Microbiology Data 06/21/23 03:58 06/21/23 03:58 Radiography Diagnostic Testing: Radiology Impression Small Bowel X-Ray 06/21/23 08:00 IMPRESSION: On the 6 hour image, there is opacification of the entire bowel. Electronically Signed: Duy Coppola MD at 8:13 EST , D/C Instructions Discharge Diet: Light diet - advance as tolerated Meaningful Use Info Meaningful Use Diagnoses (Choose all that apply): None applicable Discharge Plan Admission Admit Date/Time: 06/21/23 00:25 Primary Reason for Your Visit: Partial bowel obstruction Attending Provider: Carly Lorenz Primary Care Provider: Benny Villalobos Consulting Providers: Ben Villafuerte; Praful Vincent Instructions Patient Instructions: Bowel Obstruction Discharge Orders/Prescriptions Prescriptions: Continued potassium chloride [Klor-Con M20] 20 mEq tablet,ER particles/crystals 20 meq PO DAILY vitamin B complex [B Complex-Vitamin B12] Tablet 1 tab PO DAILY iodine 150 mcg tablet 150 mcg PO DAILY multivitamin [Daily Multi-Vitamin] Tablet 1 tab PO DAILY cholecalciferol (vitamin D3) [Vitamin D3] 1 tab PO DAILY vitamin B complex Tablet 1 tab PO DAILY coenzyme Q10 10 mg capsule PO clobetasol 0.05 % ointment 1 applic TOPICAL PRN olmesartan 40 mg tablet 20 mg PO QHS Referrals / Follow Up: Benny Villalobos MD [Primary Care Provider] - Within 1 Week Disposition Disposition (needs filled in before D/C Order can be placed): Home, Self Care Charges/Coding Visit Charges Inpatient E&M: 40193 Disch Hosp >30min
--- NOTE | 2023-06-22 11:07 | PHA.DC.MR.R ---
Pharmacy [facility] Med Reconciliation Pharmacy Service has performed discharge medication reconciliation for this patient. The patient's discharge medication list was reviewed for discrepancies and discrepancies were resolved. Medications at Discharge Home Medications olmesartan 40 mg tablet 20 mg PO QHS bp 08/30/21 potassium chloride 20 mEq tablet,extended release(part/cryst) (Klor-Con M) 20 meq PO DAILY potassium supplement 11/23/22 iodine 150 mcg tablet 150 mcg PO DAILY supplement 06/20/23 multivitamin (Daily Multi-Vitamin tablet) 1 tab PO DAILY vitamin 06/20/23 vitamin B complex (B Complex-Vitamin B12 tablet) 1 tab PO DAILY vitamin 06/20/23 cholecalciferol (vitamin D3) 1 tab PO DAILY vitamin 06/21/23 clobetasol 0.05 % topical ointment 1 applic topical PRN health 06/21/23 coenzyme Q10 10 mg capsule mg PO supplement 06/21/23 vitamin B complex 1 tab PO DAILY vitamin 06/21/23
== END 2023-06-22 12:01 | disposition home or self-care (01) | DRG 390 ==
LOC: ED 06-21 00:02 → PCU 06-21 01:13
PROVIDERS: Admitting Provider Internal Medicine; Emergency Provider Emergency Medicine; PCP Family Medicine; Visit Provider Internal Medicine
DX: K56.600 Partial intestinal obstruction, unspecified as to cause (principal); E66.9 Obesity, unspecified; I10 Essential (primary) hypertension; I35.1 Nonrheumatic aortic (valve) insufficiency; Z68.32 Body mass index [BMI] 32.0-32.9, adult; Z87.891 Personal history of nicotine dependence
CPT/HCPCS: 36415; 74018; 74177; 74250; 80053; 83605; 83735; 84100; 85025; 99285; J7030; J7040; Q9967; A4216; J2405

== ENCOUNTER → 2023-08-14 | Outpatient (CLI) | payer OTHER, SELFPAY ==
--- OUTSIDE RECORDS SUMMARY | 2023-08-14 12:12 | XMS RPT_ITS | CCD ---
Author Name Unknown Address [address] [place] [address] Organization [facility] Care Team Providers Care Bobcat Operator Name Role Phone Tizzano, Dangelo P Unavailable Unavailable No Doctor Assigned, Nodr Unavailable Unavail able Tizzano, Dangelo P Unavailable Unavailable Tizzano, Dangelo P Unavailable Unavailable No Doctor Assigned, Nodr Unavailable Unavail able Tizzano, Dangelo P Unavailable Unavailable No Doctor Assigned, Nodr Unavailable Unavail able Jimi Yi MD Unavailable [phone] Nito Villalobos MD Primary Care Provider Nito Villalobos MD Primary Care Provider NITO VILLALOBOS Primary Care Unavailable NITO VILLALOBOS Primary Care Unavailable Allergies Allergy Classification Reported Allergen(s) Allergy Type Date of Onset Reaction(s) Facility (1 source) No Known Medication Allergies; Translations: [No Known Medication Allergies] Propensity to adverse reactions to drug (disorder) [facility] Repository (4 sources) Codeine; Translations: [CODEINE] Drug Allergy 7 Intolerance [facility] Work Phone: (4 sources) FLUoxetine; Translations: [FLUOXETINE HCL] Drug Allergy 7 [facility] Work Phone: Medications Completed/Discontinued Medications Medication Drug Class(es) Dates Sig (Normalized) Sig (Original) benzonatate 100 mg oral capsule (3 sources) Non-narcotic Antitussive Start: 08-21-2022 take 1 capsule by mouth every eight hours as needed benzonatate (TESSALON PERLES) 100 mg capsule Take 1 capsule by mouth three times daily as needed for cough. 12 capsule 0 08/21/2022 Active Problems Active Problems Problem Classification Problem Date Documented Da te Episodic/Chronic Aortic; peripheral; and visceral artery aneurysms (3 sources) Dilatation of aorta; Translations: [Aortic ectasia, unspecified site] Onset: 07-17-2019 07-17-2019 Chronic Essential hypertension (3 sources) Essential hypertension; Translations: [Essential (primary) hypertension] Onset: 09-25-2012 06-21-2015 Chronic Heart valve disorders (6 sources) Nonrheumatic aortic (valve) insufficiency; Translations: [Aortic valve disorders] Onset: 11-30-2016 11-30-2016 Chronic Other nutritional; endocrine; and metabolic disorders (3 sources) Obese class I; Translations: [Obesity, unspecified] Onset: 07-17-2019 07-17-2019 Chronic Other upper respiratory infections (2 sources) Pharyngitis; Translations: [Acute pharyngitis, unspecified] Episodic Viral infection (1 source) Viral disease; Translations: [Viral infection, unspecified] Episodic Past or Other Problems Problem Classification Problem Date Documented Da te Episodic/Chronic Abdominal pain (3 sources) Generalized abdominal pain; Translations: [Generalized abdominal pain] Onset: 11-08-2015 11-08-2015 Episodic Intestinal obstruction without hernia (3 sources) Small bowel obstruction; Translations: [Unspecified intestinal obstruction, unspecified as to partial versus complete obstruction] Onset: 12-25-2013 12-25-2013 Episodic Other and unspecified benign neoplasm (3 sources) Benign neoplasm of colon; Translations: [Benign neoplasm of colon, unspecified] Onset: 10-11-2012 10-11-2012 Episodic Other gastrointestinal disorders (3 sources) Personal history of other diseases of the digestive system; Translations: [Personal history of other diseases of digestive system] Onset: 02-24-2011 02-24-2011 Episodic Other screening for suspected conditions (not mental disorders or infectious disease) (3 sources) Patient encounter status; Translations: [Encounter for screening for malignant neoplasm of colon] Onset: 09-26-2012 09-26-2012 Episodic Residual codes; unclassified (3 sources) History of supracervical hysterectomy; Translations: [Acquired absence of uterus with remaining cervical stump] Onset: 09-25-2012 09-25-2012 Episodic Results Test Name Value Interpretation Reference Range Facil ity Vital Signs Date Time Vital Sign Value Performing Clinician Conor hester 06-02-2023 08:10-0400 Body temperature 99.19 [degF] Kyara Athy PA-C Work Phone: [facility] 06-02-2023 08:10-0400 Body weight 91.17 kg Kyara Athy PA-C Work Phone: [facility] 06-02-2023 08:10-0400 Diastolic blood pressure 80 mm[Hg] Kyara Athy PA-C Work Phone: [facility] 06-02-2023 08:10-0400 Heart rate 82 /min Kyara Athy PA-C Work Phone: [facility] 06-02-2023 08:10-0400 Respiratory rate 16 /min Kyara Athy PA-C Work Phone: [facility] 06-02-2023 08:10-0400 SaO2% (BldA) [Mass fraction] 97 % Kyara Athy PA-C Work Phone: [facility] 06-02-2023 08:10-0400 Systolic blood pressure 122 mm[Hg] Kyara Athy PA-C Work Phone: [facility] 08-21-2022 13:37-0500 Body temperature 98.2 [degF] Jeovanny Pendlebury REPRODUCTIVE ENDOCRINOLOGIST.GRAPHIC MANAGER Work Phone: [facility] 08-21-2022 13:37-0500 Body weight 84.91 kg Jeovanny Pendlisa REPRODUCTIVE ENDOCRINOLOGIST.GRAPHIC MANAGER Work Phone: [facility] 08-21-2022 13:37-0500 Diastolic blood pressure 82 mm[Hg] Jeovanny Pendlebury REPRODUCTIVE ENDOCRINOLOGIST.GRAPHIC MANAGER Work Phone: [facility] 08-21-2022 13:37-0500 Heart rate 87 /min Jeovanny Pendlebury REPRODUCTIVE ENDOCRINOLOGIST.GRAPHIC MANAGER Work Phone: [facility] 08-21-2022 13:37-0500 Respiratory rate 20 /min Jeovanny Pendlebury REPRODUCTIVE ENDOCRINOLOGIST.GRAPHIC MANAGER Work Phone: [facility] 08-21-2022 13:37-0500 SaO2% (BldA) [Mass fraction] 98 % Jeovanny Pendlebury REPRODUCTIVE ENDOCRINOLOGIST.KADE Work Phone: [facility] 08-21-2022 13:37-0500 Systolic blood pressure 148 mm[Hg] Jeovanny Almanza APRN.GRAPHIC MANAGER Work Phone: [facility] Encounters Encounter Date Encounter Type Care Provider Facility Start: 06-02-2023 End: 06-02-2023 ambulatory NITO Amber VILLALOBOS Facility:[facility] Start: 06-02-2023 End: 06-02-2023 Patient encounter procedure Kyara Sierra PA-C Work Phone: [facility] Procedures Date Procedure Procedure Detail Performing Clinician Start: 06-02-2023 STREP A MOLECULAR (POC) Kyara Sierra PA-C Work Phone: Start: 08-21-2022 STREP A MOLECULAR (POC) Jeovanny Almanza REPRODUCTIVE ENDOCRINOLOGIST.KADE Work Phone: Start: 01-16-2018 Lipid 1996 panel - S carlos or Plasma Kyara Sierra PA-C Work Phone: Start: 10-06-2016 Mammography Jeovannyrah manzano REPRODUCTIVE ENDOCRINOLOGIST.GRAPHIC MANAGER Work Phone: Start: 10-11-2012 Colonoscopy Jeovanny manzano REPRODUCTIVE ENDOCRINOLOGIST.GRAPHIC MANAGER Work Phone: Plan of Treatment Date Care Activity Detail Author Start: 05-01-2025 Urine microalbumin profile DTaP,Tdap,Td Vaccine (5 - Td or Tdap) [facility] Start: 01-16-2023 Lipid 1996 panel - Serum or Plasma Lipid Screening [facility] Start: 01-16-2023 LIPID SCREEN LIPID SCREEN [facility] Start: 10-11-2022 Colonoscopy COLONOSCOPY [facility] Start: 10-11-2022 COLORECTAL CANCER SCREENING COLORECTAL CANCER SCREENING [facility] Start: 08-21-2022 End: 09-04-2022 Influenza virus A and B RNA and SARS-CoV-2 (COVID-19) N gene panel - Respiratory specimen by [facility] with probe detection [facility] Work Phone: Immunizations Immunization Date Immunization Notes Care Provider Fa sylvia 06-16-2019 influenza, injectabl e, quadrivalent, contains preservative Jeovanny Vargaslisa REPRODUCTIVE ENDOCRINOLOGIST.GRAPHIC MANAGER Work Phone: [facility] 02-14-2012 tetanus toxoid, redu sixto diphtheria toxoid, and acellular pertussis vaccine, adsorbed Jeovanny Samlisa REPRODUCTIVE ENDOCRINOLOGIST.GRAPHIC MANAGER Work Phone: [facility] Payers Date Payer Category Payer Private Health Insurance 2017 Private Health Insurance [id number] Social History Date Type Detail Facility Start: 08-21-2022 Tobacco smoking stat us NHIS Ex-smoker [facility] End: 08-13-2011 History of tobacco use Current smoker [facility] End: 08-13-2011 History of tobacco use Cigarette Smoker [facility] Start: 07-18-2020 End: 08-21-2022 Cigarettes smoked current (pack per day) - Reported 0.5 [facility] Start: 08-21-2022 Tobacco use and exposure Smoke less tobacco non-user [facility] Start: 08-21-2022 End: 06-02-2023 Alcohol intake Ex-drinker (finding) [facility] Start: 1960 Sex Assigned At Not on file [facility] Start: 07-18-2020 End: 06-02-2023 Tobacco use panel [facility] National Score (1-10 0), lower number is lower risk Not on file [facility] Start: 07-31-2019 Gender identity Identifies as female gender (finding) [facility] Start: 07-31-2019 Sexual orientation Heterosexual (fin ding) [facility] Progress note 06-02-2023 Note Date & Type Note Facility 06-02-2023 Note HNO ID: [id number] Author: Kyara Sierra PA-C Service: ? Author Type: Physician Systems Analyst Type: Progress Notes Filed: 06/02/2023 9:03 AM Note Text: This note was created using Sharethroughriter. Subjective Ivory Iyer is a 62 year old female. HPI Patient presents with a chief complaint of sore throat, cough, congestion over the past 2 days. She denies fever at home, temp here 99.2. She did take some NyQuil last night. States she started to feel worse last evening. No chest pain or shortness of breath. Denies history of asthma. Denies sick contacts. Review of Systems Constitutional: Positive for fatigue and fever. HENT: Positive for congestion and sore throat. Negative for ear pain. Respiratory: Positive for cough. Negative for choking, chest tightness, shortness of breath, wheezing and stridor. Cardiovascular: Negative. Gastrointestinal: Negative. Genitourinary: Negative. Musculoskeletal: Positive for myalgias. Neurological: Positive for headaches. All other systems reviewed and are negative. PAST MEDICAL HISTORY Diagnosis Date Dyspnea on exertion Fatigue First degree AV block HTN (hypertension) Marfan's syndrome with aortic dilation Nonrheumatic aortic valve insufficiency Obesity Prolonged QT interval chronic SBO (small bowel obstruction) ([facility]) 02/10/2011 Current Outpatient Medications Medication Sig Dispense Refill clobetasol (TEMOVATE) 0.05 % cream APPLY THIN LAYER TWICE A DAY X 2 WEEKS THEN DAILY X2 WEEKS APPLY THIN LAYER MASSAGE IN TO COVER AREA olmesartan (BENICAR) 40 mg tablet TAKE 1 TABLET BY MOUTH EVERY DAY 90 tablet 2 coenzyme Q10 (CO Q-10) 100 mg cap capsule Take 100 mg by mouth twice daily. potassium chloride (KLOR-CON M20 ORAL) Take 1 tablet by mouth once daily. Cholecalciferol, Vitamin D3, 1,000 unit cap Take 3 capsules by mouth once daily. 0 Calcium Carbonate 390 mg (1,000 mg) tab Take 3 tablets by mouth once daily. 0 vitamin b complex (B COMPLETE) tab Take 1 tablet by mouth once daily. 0 omega-3 fatty acids 1,000 mg cap Take 5 capsules by mouth once daily. benzonatate (TESSALON PERLES) 100 mg capsule Take 1 capsule by mouth three times daily as needed for cough. (Patient not taking: Reported on 06/02/2023) 12 capsule 0 No current facility-administered medications for this visit. PAST SURGICAL HISTORY Procedure Laterality Date APPENDECTOMY COLSC FLX W/RMVL OF TUMOR POLYP LESION SNARE TQ 10/11/2012 hyperplasstic rectal polyp ECHO TRANSESOPHAG CONGEN PROBE [facility] IANDR 02/10/2019 [facility] by Jimi Yi MD LIG/TRNSXJ FLP TUBE ABDL/VAG APPR UNI/BI Tubal ligation PAST SURGICAL HISTORY OF and 2012 bowel surgery TOTAL ABDOMINAL HYSTERECT W/WO RMVL TUBE OVARY Hysterectomy, TIFFANIE FAMILY HISTORY Problem Relation Age of Onset Hyperlipidemia Mother Hypertension Mother Hyperlipidemia Father Heart Failure Father Stroke Father Heart Maternal Grandmother Diabetes Paternal Aunt Diabetes Paternal Uncle Social History Tobacco Use Smoking status: Former Packs/day: 0.50 Years: 12.00 Additional pack years: 0.00 Total pack years: 6.00 Types: Cigarettes Quit date: 2011 Years since quittin.8 Smokeless tobacco: Never Vaping Use Vaping Use: Never used Substance Use Topics Alcohol use: Not Currently Drug use: No Objective BP 122/80 Pulse 82 Temp 37.3 ?C (99.2 ?F) Resp 16 Wt 91.2 kg (201 lb) SpO2 97% BMI 31.48 kg/m? Physical Exam Vitals reviewed. Constitutional: Appearance: Normal appearance. HENT: Head: Normocephalic and atraumatic. Right Ear: Tympanic membrane, ear canal and external ear normal. Left Ear: Tympanic membrane, ear canal and external ear normal. Nose: Congestion present. Mouth/Throat: Lips: [place]. Mouth: Mucous membranes are moist. Pharynx: Pharyngeal swelling and posterior oropharyngeal erythema present. No oropharyngeal exudate. Cardiovascular: Rate and Rhythm: Normal rate and regular rhythm. Heart sounds: Normal heart sounds. Pulmonary: Effort: Pulmonary effort is normal. Breath sounds: Normal breath sounds. Musculoskeletal: Cervical back: Neck supple. Neurological: Mental Status: She is alert. Assessment and Plan ASSESSMENT/PLAN: 1. Viral URI - ICD9: 465.9, ICD10: J06.9 - Discussed viral etiology and rationale for treatment. - Symptomatic treatment with prn analgesia - Supportive care with fluids and rest - Follow up in 3-5 days if symptoms persist or sooner if worsening of symptoms - STREP A MOLECULAR (POC) - COVID AND INFLUENZA A/B AND RSV NAAT, ROUTINE - COVID NAAT, UPPER RESPIRATORY, ROUTINE - ROUTINE FLU A/B + RSV Kyara Sierra PA-C [facility] History of Present illness Narrative 06-02-2023 Kyara Sierra PA-C - 06/02/2023 8:55 AM EDT Note Date & Type Note Facility 06-02-2023 History of Presen t illness Narrative This note was created using NoteWriter. Subjective Ivory Iyer is a 62 year old female. HPI Patient presents with a chief complaint of sore throat, cough, congestion over the past 2 days. She denies fever at home, temp here 99.2. She did take some NyQuil last night. States she started to feel worse last evening. No chest pain or shortness of breath. Denies history of asthma. Denies sick contacts. Review of Systems Constitutional: Positive for fatigue and fever. HENT: Positive for congestion and sore throat. Negative for ear pain. Respiratory: Positive for cough. Negative for choking, chest tightness, shortness of breath, wheezing and stridor. Cardiovascular: Negative. Gastrointestinal: Negative. Genitourinary: Negative. Musculoskeletal: Positive for myalgias. Neurological: Positive for headaches. All other systems reviewed and are negative. PAST MEDICAL HISTORY Diagnosis Date Dyspnea on exertion Fatigue First degree AV block HTN (hypertension) Marfan's syndrome with aortic dilation Nonrheumatic aortic valve insufficiency Obesity Prolonged QT interval chronic SBO (small bowel obstruction) ([facility]) 02/10/2011 Current Outpatient Medications Medication Sig Dispense Refill clobetasol (TEMOVATE) 0.05 % cream APPLY THIN LAYER TWICE A DAY X 2 WEEKS THEN DAILY X2 WEEKS APPLY THIN LAYER MASSAGE IN TO COVER AREA olmesartan (BENICAR) 40 mg tablet TAKE 1 TABLET BY MOUTH EVERY DAY 90 tablet 2 coenzyme Q10 (CO Q-10) 100 mg cap capsule Take 100 mg by mouth twice daily. potassium chloride (KLOR-CON M20 ORAL) Take 1 tablet by mouth once daily. Cholecalciferol, Vitamin D3, 1,000 unit cap Take 3 capsules by mouth once daily. 0 Calcium Carbonate 390 mg (1,000 mg) tab Take 3 tablets by mouth once daily. 0 vitamin b complex (B COMPLETE) tab Take 1 tablet by mouth once daily. 0 omega-3 fatty acids 1,000 mg cap Take 5 capsules by mouth once daily. benzonatate (TESSALON PERLES) 100 mg capsule Take 1 capsule by mouth three times daily as needed for cough. (Patient not taking: Reported on 06/02/2023) 12 capsule 0 No current facility-administered medications for this visit. PAST SURGICAL HISTORY Procedure Laterality Date APPENDECTOMY COLSC FLX W/RMVL OF TUMOR POLYP LESION SNARE TQ 10/11/2012 hyperplasstic rectal polyp [facility] by Jimi Yi MD LIG/TRNSXJ FLP TUBE ABDL/VAG APPR UNI/BI Tubal ligation PAST SURGICAL HISTORY OF and 2012 bowel surgery TOTAL ABDOMINAL HYSTERECT W/WO RMVL TUBE OVARY Hysterectomy, TIFFANIE FAMILY HISTORY Problem Relation Age of Onset Hyperlipidemia Mother Hypertension Mother Hyperlipidemia Father Heart Failure Father Stroke Father Heart Maternal Grandmother Diabetes Paternal Aunt Diabetes Paternal Uncle Social History Tobacco Use Smoking status: Former Packs/day: 0.50 Years: 12.00 Additional pack years: 0.00 Total pack years: 6.00 Types: Cigarettes Quit date: 2011 Years since quittin.8 Smokeless tobacco: Never Vaping Use Vaping Use: Never used Substance Use Topics Alcohol use: Not Currently Drug use: No Objective BP 122/80 Pulse 82 Temp 37.3 C (99.2 F) Resp 16 Wt 91.2 kg (201 lb) SpO2 97% BMI 31.48 kg/m Physical Exam Vitals reviewed. Constitutional: Appearance: Normal appearance. HENT: Head: Normocephalic and atraumatic. Right Ear: Tympanic membrane, ear canal and external ear normal. Left Ear: Tympanic membrane, ear canal and external ear normal. Nose: Congestion present. Mouth/Throat: Lips: [place]. Mouth: Mucous membranes are moist. Pharynx: Pharyngeal swelling and posterior oropharyngeal erythema present. No oropharyngeal exudate. Cardiovascular: Rate and Rhythm: Normal rate and regular rhythm. Heart sounds: Normal heart sounds. Pulmonary: Effort: Pulmonary effort is normal. Breath sounds: Normal breath sounds. Musculoskeletal: Cervical back: Neck supple. Neurological: Mental Status: She is alert. Assessment and Plan ASSESSMENT/PLAN: 1. Viral URI - ICD9: 465.9, ICD10: J06.9 - Discussed viral etiology and rationale for treatment. - Symptomatic treatment with prn analgesia - Supportive care with fluids and rest - Follow up in 3-5 days if symptoms persist or sooner if worsening of symptoms - STREP A MOLECULAR (POC) - COVID & INFLUENZA A/B & RSV NAAT, ROUTINE - COVID NAAT, UPPER RESPIRATORY, ROUTINE - ROUTINE FLU A/B + RSV Kyara Sierra PA-C documented in this encounter [facility] Note 08-22-2022 Telephone Encounter - Vivian Fernandezhl SILVERWARE CLEANER - 08/22/2022 11:34 AM ESTTelephone Encounter - Mallory Beslindsey WILKINSON - 08/22/2022 8:06 AM EST Note Date & Type Note Facility 08-22-2022 Miscellaneous Notes Formattin g of this note might be different from the original. Phone call placed no answer unable to leave a message, mailbox reported as full, [employer] logon 08/21/2022 results viewed. Vivian Weller LPN Unable to reach patient and mailbox is full-try later.Mallory Casillas LPN Please let patient know negative for covid and flu. documented in this encounter [facility] Influenza virus A and B RNA and SARS-CoV-2 (COVID-19) N gene panel HOMAR+probe (Resp) 08-21-2022 Note Date & Type Note Facility 08-21-2022 Influenza virus A and B RNA and SARS-CoV-2 (COVID-19) N gene panel HOMAR+probe (Resp) COVID 19 RESULT: SARS-CoV-2 (Agent of COVID-19) Not Detected by RT-PCR or equivalent method. This test was developed and its performance characteristics determined by [facility] [place]. This test has been authorized by FDA under an Emergency Use Authorization (EUA). This test has been validated in accordance with the FDA's Guidance Document Policy for Diagnostics Testing in Laboratories Certified to Perform High Complexity Testing under CLIA prior to Emergency use Authorization for Coronavirus Disease 2019 during the Public Health Emergency issued on October 11, 2019. Test performed by [facility], [facility] [place], [address] [place] [address]. INFLUENZA A PCR: Negative for Influenza A by RT-PCR INFLUENZA B PCR: Negative for Influenza B by RT-PCR [facility] Progress note 08-21-2022 Note Date & Type Note Facility 08-21-2022 Note HNO ID: [id number] Author: Jeovanny Almanza APRN.GRAPHIC MANAGER Service: ? Author Type: Nurse Practitioner Type: Progress Notes Filed: 08/21/2022 2:22 PM Note Text: Subjective HPI Nontoxic-appearing female presents urgent care chief complaint cough sore throat. Duration of symptoms 3 days. Associated symptoms with today's chief complaint are on and off headache, muscle aches, fatigue, nonproductive cough, and fever. Highest recorded temperature 100 last night. Patient stated symptoms started abruptly. No OTC medications. States granddaughter had stuffy nose and cough. She was around her granddaughter recently.. Patient denies any pain at this time. Patient denies any visual changes, visual disturbance, shortness of breath, rash, exercise intolerance, pleuritic pain, productive cough, abdominal pain, nausea, vomiting, chest pain, or change in bowel or bladder habits. Past medical history prescription medication use allergies reviewed. .Patient presents with: Cough: ST, intermittent low fevers, fatigue x3 days PAST MEDICAL HISTORY Diagnosis Date Dyspnea on exertion Fatigue First degree AV block HTN (hypertension) Marfan's syndrome with aortic dilation Nonrheumatic aortic valve insufficiency Obesity Prolonged QT interval chronic SBO (small bowel obstruction) ([facility]) 02/10/2011 PAST SURGICAL HISTORY Procedure Laterality Date APPENDECTOMY COLSC FLX W/RMVL OF TUMOR POLYP LESION SNARE TQ 10/11/2012 hyperplasstic rectal polyp ECHO TRANSESOPHAG CONGEN PROBE [facility] IANDR 02/10/2019 [facility] by Jimi Yi MD LIG/TRNSXJ FLP TUBE ABDL/VAG APPR UNI/BI Tubal ligation PAST SURGICAL HISTORY OF infant and 2012 bowel surgery TOTAL ABDOMINAL HYSTERECT W/WO RMVL TUBE OVARY Hysterectomy, TIFFANIE ALLERGIES Codeine and Prozac [Fluoxetine Hcl] MEDICATIONS clobetasol (TEMOVATE) 0.05 % cream APPLY THIN LAYER TWICE A DAY X 2 WEEKS THEN DAILY X2 WEEKS APPLY THIN LAYER MASSAGE IN TO COVER AREA olmesartan (BENICAR) 40 mg tablet TAKE 1 TABLET BY MOUTH EVERY DAY potassium chloride (KLOR-CON M20 ORAL) Take 1 tablet by mouth once daily. coenzyme Q10 (CO Q-10) 100 mg cap capsule Take 100 mg by mouth twice daily. Cholecalciferol, Vitamin D3, 1,000 unit cap Take 3 capsules by mouth once daily. Calcium Carbonate 390 mg (1,000 mg) tab Take 3 tablets by mouth once daily. vitamin b complex (B COMPLETE) tab Take 1 tablet by mouth once daily. omega-3 fatty acids 1,000 mg cap Take 5 capsules by mouth once daily. FAMILY HISTORY Problem Relation Age of Onset Hyperlipidemia Mother Hypertension Mother Hyperlipidemia Father Heart Failure Father Stroke Father Heart Maternal Grandmother Diabetes Paternal Aunt Diabetes Paternal Uncle Social History Tobacco Use Smoking status: Former Packs/day: 0.50 Years: 12.00 Pack years: 6.00 Types: Cigarettes Quit date: 2011 Years since quittin.0 Smokeless tobacco: Never Vaping Use Vaping Use: Never used Substance Use Topics Alcohol use: Not Currently Drug use: No BP 148/82 Pulse 87 Temp 36.8 ?C (98.2 ?F) Resp 20 Wt 84.9 kg (187 lb 3.2 oz) SpO2 98% BMI 29.32 kg/m? Review of Systems Constitutional: Positive for chills, fever and malaise/fatigue. HENT: Positive for congestion and sore throat. Negative for ear discharge, ear pain and sinus pain. Eyes: Negative for blurred vision, pain, discharge and redness. Respiratory: Positive for cough. Negative for hemoptysis, sputum production, shortness of breath, wheezing and stridor. Cardiovascular: Negative for chest pain. Gastrointestinal: Negative for abdominal pain, diarrhea, nausea and vomiting. Musculoskeletal: Positive for myalgias. Skin: Negative for itching and rash. Neurological: Positive for headaches. Negative for dizziness. Objective Physical Exam Constitutional: General: She is not in acute distress. Appearance: She is not diaphoretic. HENT: Head: Normocephalic. Jaw: No trismus, tenderness or pain on movement. Right Ear: Tympanic membrane, ear canal and external ear normal. Left Ear: Tympanic membrane, ear canal and external ear normal. Nose: Congestion present. Mouth/Throat: Lips: [place]. Mouth: Mucous membranes are moist. Pharynx: Oropharynx is clear. Uvula midline. Posterior oropharyngeal erythema present. No pharyngeal swelling, oropharyngeal exudate or uvula swelling. Eyes: Conjunctiva/sclera: Conjunctivae normal. Pupils: Pupils are equal, round, and reactive to light. Cardiovascular: Rate and Rhythm: Normal rate and regular rhythm. Heart sounds: Normal heart sounds. Pulmonary: Effort: Pulmonary effort is normal. No tachypnea, accessory muscle usage or respiratory distress. Breath sounds: Normal breath sounds. No stridor. No wheezing, rhonchi or rales. Abdominal: General: There is no distension. Palpations: Abdomen is soft. Tenderness: There is no abdominal tenderness. There is no guarding o (more content not included)... [facility] Instructions 08-21-2022 Patient Instructions Note Date & Type Note Facility 08-21-2022 Instructions Jeovanny Almanza APRN.GRAPHIC MANAGER - 08/21/2022 1:52 PM EST How to Manage Common Symptoms Associated with COVID for Adults Fever- Fever is a temperature over 100.4 F and can occur when the body is fighting an infection. To help treat a fever: Drink plenty of fluids and stay well hydrated. Eat small amounts of easy to digest food. Rest. Your body needs rest to recover, but getting up and moving around the house frequently is a good idea. You should try to continue doing your normal daily activities (bathing, toileting, grooming, cooking), though you will probably feel tired, and need to rest often. Avoid any heavy activity or exercise, as this will increase your body temperature. Dress in light clothing and stay covered in a light sheet. Keep the room temperature cool. Take a slightly warm (not cold or cool) bath, or apply damp washcloths to the forehead and wrists. Cough- Cough is a common symptom associated with COVID and can be bothersome. To help treat a cough: Stay well hydrated. Try warm water or tea with lemon and/or honey to help soothe the cough. Use a humidifier to add moisture to the air. Try a product with menthol, like a cough drop or a rub for your chest such as Vicks, which can help reduce cough. Try cough drops. Avoid smoking and other strong odors or perfumes. Try breathing exercises to keep your lungs open and clear. Take a big deep breath through your nose and hold for 5 seconds before slowly releasing. Repeat frequently, while you are awake. Congestion- Runny nose or nasal congestion can occur with COVID. Treatment can help relieve symptoms: Try OTC nasal saline spray, or nasal saline rinse to relieve mucus congestion. Nasal strips can help keep nasal passages open, to increase airflow. Elevating your head with an extra pillow in bed can help reduce congestion. Using a humidifier can increase moisture in the air, and make breathing easier. Sore Throat- Another common symptom with COVID, can be managed at home by: Stay well hydrated. Gargle with salt water - mix teaspoon salt with 1 cup of warm water and gargle. This helps to loosen mucus in the back of the throat and may reduce discomfort. Try ice chips, popsicles or lozenges to soothe the throat. Nausea/Vomiting/Diarrhea- These are common symptoms, and staying hydrated is most important. If you are nauseous or vomiting, start with small sips of water every 10-15 minutes and increase as tolerated. You can try sucking an ice cube too. If tolerating, you can try pedialyte or Gatorade, or flat sprite or eris-bert. Start slowly and increase as you are able to. Instead of meals, try smaller, more frequent snacks. Try eating bland foods like crackers, toast, rice, and applesauce. Avoid spicy, greasy or fried foods and dairy containing foods. Even if you aren't feeling hungry due to lack of smell or taste, it is important to try to take in some food when you are able. After drinking and eating, rest in an upright position for up to two hours as needed to help decrease nauseous feelings. Try closing your eyes, avoid moving and watching TV. Avoid strong odors that can make you feel more nauseated. When to seek emergency medical attention Look for emergency warning signs for COVID-19. If having any of these symptoms, seek emergency medical care immediately: Trouble breathing Persistent pain or pressure in the chest New confusion Inability to wake or stay awake Bluish lips or face *This list is not all possible symptoms. Please call your medical provider for any other symptoms that are severe or concerning to you. documented in this encounter [facility] History of Present illness Narrative 08-21-2022 Jeovanny Almanza APRN.CNP - 08/21/2022 1:40 PM EST Note Date & Type Note Facility 08-21-2022 History of Presen t illness Narrative Subjective HPI Nontoxic-appearing female presents urgent care chief complaint cough sore throat. Duration of symptoms 3 days. Associated symptoms with today's chief complaint are on and off headache, muscle aches, fatigue, nonproductive cough, and fever. Highest recorded temperature 100 last night. Patient stated symptoms started abruptly. No OTC medications. States granddaughter had stuffy nose and cough. She was around her granddaughter recently.. Patient denies any pain at this time. Patient denies any visual changes, visual disturbance, shortness of breath, rash, exercise intolerance, pleuritic pain, productive cough, abdominal pain, nausea, vomiting, chest pain, or change in bowel or bladder habits. Past medical history prescription medication use allergies reviewed. .Patient presents with: Cough: ST, intermittent low fevers, fatigue x3 days PAST MEDICAL HISTORY Diagnosis Date Dyspnea on exertion Fatigue First degree AV block HTN (hypertension) Marfan's syndrome with aortic dilation Nonrheumatic aortic valve insufficiency Obesity Prolonged QT interval chronic SBO (small bowel obstruction) (HCC) 02/10/2011 PAST SURGICAL HISTORY Procedure Laterality Date APPENDECTOMY COLSC FLX W/RMVL OF TUMOR POLYP LESION SNARE TQ 10/11/2012 hyperplasstic rectal polyp ECHO TRANSESOPHAG CONGEN PROBE [facility] IMG I&R 02/10/2019 [facility] by Jimi Yi MD LIG/TRNSXJ FLP TUBE ABDL/VAG APPR UNI/BI Tubal ligation PAST SURGICAL HISTORY OF infant and 2012 bowel surgery TOTAL ABDOMINAL HYSTERECT W/WO RMVL TUBE OVARY Hysterectomy, TIFFANIE ALLERGIES Codeine and Prozac [Fluoxetine Hcl] MEDICATIONS clobetasol (TEMOVATE) 0.05 % cream APPLY THIN LAYER TWICE A DAY X 2 WEEKS THEN DAILY X2 WEEKS APPLY THIN LAYER MASSAGE IN TO COVER AREA olmesartan (BENICAR) 40 mg tablet TAKE 1 TABLET BY MOUTH EVERY DAY potassium chloride (KLOR-CON M20 ORAL) Take 1 tablet by mouth once daily. coenzyme Q10 (CO Q-10) 100 mg cap capsule Take 100 mg by mouth twice daily. Cholecalciferol, Vitamin D3, 1,000 unit cap Take 3 capsules by mouth once daily. Calcium Carbonate 390 mg (1,000 mg) tab Take 3 tablets by mouth once daily. vitamin b complex (B COMPLETE) tab Take 1 tablet by mouth once daily. omega-3 fatty acids 1,000 mg cap Take 5 capsules by mouth once daily. FAMILY HISTORY Problem Relation Age of Onset Hyperlipidemia Mother Hypertension Mother Hyperlipidemia Father Heart Failure Father Stroke Father Heart Maternal Grandmother Diabetes Paternal Aunt Diabetes Paternal Uncle Social History Tobacco Use Smoking status: Former Packs/day: 0.50 Years: 12.00 Pack years: 6.00 Types: Cigarettes Quit date: 2011 Years since quittin.0 Smokeless tobacco: Never Vaping Use Vaping Use: Never used Substance Use Topics Alcohol use: Not Currently Drug use: No BP 148/82 Pulse 87 Temp 36.8 C (98.2 F) Resp 20 Wt 84.9 kg (187 lb 3.2 oz) SpO2 98% BMI 29.32 kg/m Review of Systems Constitutional: Positive for chills, fever and malaise/fatigue. HENT: Positive for congestion and sore throat. Negative for ear discharge, ear pain and sinus pain. Eyes: Negative for blurred vision, pain, discharge and redness. Respiratory: Positive for cough. Negative for hemoptysis, sputum production, shortness of breath, wheezing and stridor. Cardiovascular: Negative for chest pain. Gastrointestinal: Negative for abdominal pain, diarrhea, nausea and vomiting. Musculoskeletal: Positive for myalgias. Skin: Negative for itching and rash. Neurological: Positive for headaches. Negative for dizziness. Objective Physical Exam Constitutional: General: She is not in acute distress. Appearance: She is not diaphoretic. HENT: Head: Normocephalic. Jaw: No trismus, tenderness or pain on movement. Right Ear: Tympanic membrane, ear canal and external ear normal. Left Ear: Tympanic membrane, ear canal and external ear normal. Nose: Congestion present. Mouth/Throat: Lips: [place]. Mouth: Mucous membranes are moist. Pharynx: Oropharynx is clear. Uvula midline. Posterior oropharyngeal erythema present. No pharyngeal swelling, oropharyngeal exudate or uvula swelling. Eyes: Conjunctiva/sclera: Conjunctivae normal. Pupils: Pupils are equal, round, and reactive to light. Cardiovascular: Rate and Rhythm: Normal rate and regular rhythm. Heart sounds: Normal heart sounds. Pulmonary: Effort: Pulmonary effort is normal. No tachypnea, accessory muscle usage or respiratory distress. Breath sounds: Normal breath sounds. No stridor. No wheezing, rhonchi or rales. Abdominal: General: There is no distension. Palpations: Abdomen is soft. Tenderness: There is no abdominal tenderness. There is no guarding or rebound. Musculoskeletal: Cervical back: Normal range of motion and neck supple. No rigidity or tenderness. Lymphadenopathy: Cervical: No cervical adenopathy. Skin: General: Skin is warm and dry. Neurological: Mental Status: She is alert and oriented to person, place, and time. ASSESSMENT/PLAN: 1. Pharyngitis, unspecified etiology - ICD9: 462, ICD10: J02.9 (primary diagnosis) - STREP A MOLECULAR (POC) - COVID WITH FLUA+B, ROUTINE 2. Viral illness - ICD9: 079.99, ICD10: B34.9 - Discussed viral etiology and rationale for treatment. - Symptomatic treatment with prn analgesia - Supportive care with fluids and rest - COVID WITH FLUA+B, ROUTINE Day 3 of symptoms. Suspicious of viral cause of illness. Sick contacts similar signs symptoms. Strep test negative. Cough suppressant called into pharmacy. Follow-up with PCP 3 to 5 days symptoms or not improving. Patient was instructed to immediately proceed to emergency room for any new, worsening, or symptoms lasting longer than anticipated. The patient's clinical presentation is otherwise unremarkable at this time. Based on exam and clinical finding, the patient is stable for discharge. Plan of care was discussed with patient. Patient verbalizes understanding and agrees to plan of care. This note was generated using YesGraph software. It may contain errors in wording, punctuation, or spelling. 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 Advance Directive(s) 09/29/2019 8:57 AM Advance Directive(s) 09/29/2019 8:59 AM Documents on File Type Date 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 Advance Directive(s) 09/29/2019 8:59 AM Advance Directive(s) 09/29/2019 8:57 AM Health Concerns Infection Onset Date Last Indicated Resolved Time COVID-19 Rule-Out 08/21/2022 08/21/2022 Infection Onset Date Last Indicated Resolved Time COVID-19 Rule-Out 08/21/2022 08/21/2022 08/22/2022 12:09 AM EST Additional Source Comments INFORMATION SOURCE (unrecogn ized section and content) DATE CREATED AUTHOR AUTHOR'S ORGANIZ ATION 04/02/2019 [facility] DATE CREATED AUTHOR AUTHOR'S ORGANIZ ATION 06/03/2023 [facility] Source Comments (unrecognize d section and content) In the event this informatio n is protected by the Federal Confidentiality of Alcohol and Drug Abuse Patient Records regulations: The Federal rules restrict any use of the information to criminally investigate or prosecute any alcohol or drug abuse patient.[facility] the event this information is protected by the Federal Confidentiality of Alcohol and Drug Abuse Patient Records regulations: The Federal rules restrict any use of the information to criminally investigate or prosecute any alcohol or drug abuse patient.[facility] the event this information is protected by the Federal Confidentiality of Alcohol and Drug Abuse Patient Records regulations: The Federal rules restrict any use of the information to criminally investigate or prosecute any alcohol or drug abuse patient.[facility] Reason for Visit (unrecogniz ed section and content) Reason Comments Results Reason Comments Nasal Congestion sore throat and feve r x 2 days Care Teams (unrecognized sec tion and content) 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 This clinical summary was aggregated from multiple sources. Caution should be exercised in using it in the provision of clinical care. This summary normalizes information from multiple sources, and as a consequence, information in this document may materially change the coding, format and clinical context of patient data. In addition, data may be omitted in some cases. CLINICAL DECISIONS SHOULD BE BASED ON THE PRIMARY CLINICAL RECORDS. [facility]. provides no warranty or guarantee of the accuracy or completeness of information in this document.
[2023-08-14 15:15] LABS: Absolute Lymphocyte Count 2.45 X10^3/uL (0.83-4.51); Absolute Neutrophil Count 4.6 X10^3/uL (2.0-7.7); Basophil# 0.08 X10^3/uL; Eosinophil# 0.13 X10^3/uL; Eosinophils% 1.7 % (0-5); Hematocrit 46.6 % (37-47); Hemoglobin 14.3 g/dL (12.0-15.0); Lymphocyte # 2.45 X10^3/ul (0.83-4.51); Lymphocyte % 31.4 % (19-41); Mean Corp Hgb Conc 30.7 g/dL (32-36); Mean Corpuscular Hgb 28.5 pg (27.0-32.0); Monocyte% 6.4 % (0-10); NRBC Flagged by Analyzer 0 % (0-5); Platelet Count 409 K/mm3 (150-450); RBC Distribution Width CV 13.6 % (11.6-14.6); RBC Distribution Width SD 45.9 fl (35.1-43.9); Red Blood Count 5.01 M/mm3 (4.2-5.4); White Blood Count 7.8 K/mm3 (4.4-11.0)
[2023-08-14 15:45] LABS: AST(SGOT) 21 U/L (15-37); Alanine Aminotransfer ALT/SGPT 35 U/L (13-56); Albumin, Serum 4.1 g/dL (3.2-5.0); Alkaline Phosphatase 88 U/L (45-117); Anion Gap 5 (5-15); BUN 12 mg/dL (7-18); BUN/Creat Ratio 12.7 RATIO (10-20); Calcium,Total 9.5 mg/dL (8.5-10.1); Chloride 106 mmol/L (98-107); Creatinine, Serum 0.94 mg/dL (0.55-1.02); EST Glomerular Filtration Rate 63 mL/min (>60); Est Glom Filt Rate - Afr Amer 76 mL/min (>60); Glucose 123 mg/dL (74-106); Potassium 4.2 mmol/L (3.5-5.1); Protein, Total 8.1 g/dL (6.4-8.2); Sodium Level 139 mmol/L (136-145); T4 Free Direct 0.85 ng/dL (0.76-1.46); Thyroid Stim Hormone (TSH) 4.63 uIU/mL (0.358-3.74); Vitamin D,25 Hydroxy 35.3 ng/mL
== END | disposition home or self-care (01) ==
PROVIDERS: PCP Family Medicine; Visit Provider Family Medicine
DX: K56.609 Unspecified intestinal obstruction, unspecified as to partial versus complete obstruction (principal); Z13.21 Encounter for screening for nutritional disorder; E66.9 Obesity, unspecified
CPT/HCPCS: 36415; 80053; 82306; 84439; 84443; 85025

== ENCOUNTER → 2023-09-04 | Outpatient (CLI) | payer OTHER, SELFPAY ==
--- OUTSIDE RECORDS SUMMARY | 2023-09-04 11:06 | XMS RPT_ITS | CCD ---
Author Name Unknown Address [address] [place] [address] Organization [facility] Care Team Providers Care Passenger Service Agent Name Role Phone Tizzano, Dangelo P Unavailable Unavailable No Doctor Assigned, Nodr Unavailable Unavail able Tizzano, Dangelo P Unavailable Unavailable Tizzano, Dangelo P Unavailable Unavailable No Doctor Assigned, Nodr Unavailable Unavail able Tizzano, Dangelo P Unavailable Unavailable No Doctor Assigned, Nodr Unavailable Unavail able Jimi Yi MD Unavailable Nito Villalobos MD Primary Care Provider Nito Villalobos MD Primary Care Provider [phone] NITO VILLALOBOS Primary Care Unavailable NITO VILLALOBOS Primary Care Unavailable Allergies Allergy Classification Reported Allergen(s) Allergy Type Date of Onset Reaction(s) Facility (1 source) No Known Medication Allergies; Translations: [No Known Medication Allergies] Propensity to adverse reactions to drug (disorder) [facility] Repository (4 sources) Codeine; Translations: [CODEINE] Drug Allergy 7 Intolerance [facility] Work Phone: (4 sources) FLUoxetine; Translations: [FLUOXETINE HCL] Drug Allergy 7 [facility] Work Phone: Medications Completed/Discontinued Medications Medication Drug [...] 99.19 [degF] Kyara Athy PA-C Work Phone: [facility] 06-02-2023 08:10-0400 Body weight 91.17 kg Kyara Athy PA-C Work Phone: [facility] 06-02-2023 08:10-0400 Diastolic blood pressure 80 mm[Hg] Kyara Athy PA-C Work Phone: [facility] 06-02-2023 08:10-0400 Heart rate 82 /min Kyara Athy PA-C Work Phone: [facility] 06-02-2023 08:10-0400 Respiratory rate 16 /min Kyara Athy PA-C Work Phone: [facility] 06-02-2023 08:10-0400 SaO2% (BldA) [Mass fraction] 97 % Kyara Athy PA-C Work Phone: [facility] 06-02-2023 08:10-0400 Systolic blood pressure 122 mm[Hg] Kyara Athy PA-C Work Phone: [facility] 08-21-2022 13:37-0500 Body temperature 98.2 [degF] Jeovanny Pendlebury WEATHERIZATION FIELD TECHNICIAN.SHOT HOLE DRILLER Work Phone: [facility] 08-21-2022 13:37-0500 Body weight 84.91 kg Ejovanny Pendlisa WEATHERIZATION FIELD TECHNICIAN.SHOT HOLE DRILLER Work Phone: [facility] 08-21-2022 13:37-0500 Diastolic blood pressure 82 mm[Hg] Jeovanny Pendlebury WEATHERIZATION FIELD TECHNICIAN.SHOT HOLE DRILLER Work Phone: [facility] 08-21-2022 13:37-0500 Heart rate 87 /min Jeovanny Pendlebury WEATHERIZATION FIELD TECHNICIAN.SHOT HOLE DRILLER Work Phone: [facility] 08-21-2022 13:37-0500 Respiratory rate 20 /min Jeovanny Pendlebury WEATHERIZATION FIELD TECHNICIAN.SHOT HOLE DRILLER Work Phone: [facility] 08-21-2022 13:37-0500 SaO2% (BldA) [Mass fraction] 98 % Jeovanny Pendlebury WEATHERIZATION FIELD TECHNICIAN.KADE Work Phone: [facility] 08-21-2022 13:37-0500 Systolic blood pressure 148 mm[Hg] Jeovanny Almanza APRN.SHOT HOLE DRILLER Work Phone: [facility] Encounters Encounter Date Encounter Type Care Provider Facility Start: 06-02-2023 End: 06-02-2023 ambulatory NITO Amber VILLALOBOS Facility:[facility] Start: 06-02-2023 End: 06-02-2023 Patient encounter procedure Kyara Sierra PA-C Work Phone: [facility] Procedures Date Procedure Procedure Detail Performing Clinician Start: 06-02-2023 STREP A MOLECULAR (POC) Kyara Sierra PA-C Work Phone: Start: 08-21-2022 STREP A MOLECULAR (POC) Jeovanny Almanza WEATHERIZATION FIELD TECHNICIAN.KADE Work Phone: Start: 01-16-2018 Lipid 1996 panel - S carlos or Plasma Kyara Sierra PA-C Work Phone: Start: 10-06-2016 Mammography Jeovannyrah manzano WEATHERIZATION FIELD TECHNICIAN.SHOT HOLE DRILLER Work Phone: Start: 10-11-2012 Colonoscopy Jeovanny manzano WEATHERIZATION FIELD TECHNICIAN.SHOT HOLE DRILLER Work Phone: Plan of Treatment Date Care Activity Detail Author Start: 05-01-2025 Urine microalbumin profile DTaP,Tdap,Td Vaccine (5 - Td or Tdap) [facility] Start: 01-16-2023 Lipid 1996 panel - Serum or Plasma Lipid Screening [facility] Start: 01-16-2023 LIPID SCREEN LIPID SCREEN [facility] Start: 10-11-2022 Colonoscopy COLONOSCOPY [facility] Start: 10-11-2022 COLORECTAL CANCER SCREENING COLORECTAL CANCER SCREENING [facility] Start: 08-21-2022 End: 09-04-2022 Influenza virus A and B RNA and SARS-CoV-2 (COVID-19) N gene panel - Respiratory specimen by HOMAR with probe detection [facility] Work Phone: Immunizations Immunization Date Immunization Notes Care Provider Fa sylvia 06-16-2019 influenza, injectabl e, quadrivalent, contains preservative Jeovanny Vargaslisa WEATHERIZATION FIELD TECHNICIAN.SHOT HOLE DRILLER Work Phone: [facility] 02-14-2012 tetanus toxoid, redu sixto diphtheria toxoid, and acellular pertussis vaccine, adsorbed Jeovanny Samlisa WEATHERIZATION FIELD TECHNICIAN.SHOT HOLE DRILLER Work Phone: [facility] Payers Date Payer Category Payer Private Health Insurance 2017 Private Health Insurance [id number] Social History Date Type Detail Facility Start: 08-21-2022 Tobacco smoking stat us NHIS Ex-smoker [facility] End: 08-13-2011 History of tobacco use Current smoker [facility] End: 08-13-2011 History of tobacco use Cigarette Smoker [facility] Start: 07-18-2020 End: 08-21-2022 Cigarettes smoked current (pack per day) - Reported 0.5 [facility] Start: 08-21-2022 Tobacco use and exposure Smoke less tobacco non-user [facility] Start: 08-21-2022 End: 06-02-2023 Alcohol intake Ex-drinker (finding) [facility] Start: 1960 Sex Assigned At Not on file [facility] Start: 07-18-2020 End: 06-02-2023 Tobacco use panel [facility] National Score (1-10 0), lower number is lower risk Not on file [facility] Start: 07-31-2019 Gender identity Identifies as female gender (finding) [facility] Start: 07-31-2019 Sexual orientation Heterosexual (fin ding) [facility] Progress note 06-02-2023 Note Date & Type Note Facility 06-02-2023 Note HNO ID: [id number] Author: Kyara Sierra PA-C Service: ? Author Type: Physician Senior Dot Net Developer Type: Progress Notes Filed: 06/02/2023 9:03 AM Note Text: This note was created using SpringCMriter. Subjective Ivory Iyer is a 62 year [...] QT interval chronic SBO (small bowel obstruction) ([facility]) 02/10/2011 Current Outpatient Medications Medication Sig Dispense [...] polyp ECHO TRANSESOPHAG CONGEN PROBE [facility] IMGNG IANDR 02/10/2019 [facility] by Jimi Yi MD LIG/TRNSXJ FLP [...] ear normal. Nose: Congestion present. Mouth/Throat: Lips: [place]. Mouth: Mucous membranes are moist. Pharynx: Pharyngeal [...] FLU A/B + RSV Kyara Sierra PA-C [facility] History of Present illness Narrative 06-02-2023 [...] QT interval chronic SBO (small bowel obstruction) ([facility]) 02/10/2011 Current Outpatient Medications Medication Sig Dispense [...] hyperplasstic rectal polyp [facility]2019 [facility] by Jimi Yi MD LIG/TRNSXJ FLP [...] ear normal. Nose: Congestion present. Mouth/Throat: Lips: [place]. Mouth: Mucous membranes are moist. Pharynx: Pharyngeal [...] Kyara Sierra PA-C documented in this encounter [facility] Note 08-22-2022 Telephone Encounter - Vivian Fernandezhl EVENT SERVICES MANAGER - 08/22/2022 11:34 AM ESTTelephone Encounter - Mallory Beslindsey WILKINSON - 08/22/2022 8:06 AM EST Note Date & Type Note Facility 08-22-2022 Miscellaneous Notes Formattin g of this note might be different from the original. Phone call placed no answer unable to leave a message, mailbox reported as full, [employer] logon 08/21/2022 results viewed. Vivian Weller LPN Unable to reach patient and mailbox is full-try later.Mallory Casillas LPN Please let patient know negative for covid and flu. documented in this encounter [facility] Influenza virus A and B RNA and SARS-CoV-2 (COVID-19) N gene panel HOMAR+probe (Resp) 08-21-2022 Note Date & Type Note Facility 08-21-2022 Influenza virus A and B RNA and SARS-CoV-2 (COVID-19) N gene panel HOMAR+probe (Resp) COVID 19 RESULT: SARS-CoV-2 (Agent of COVID-19) Not Detected by RT-PCR or equivalent method. This test was developed and its performance characteristics determined by [facility]'s [facility]. This test has been authorized by FDA under an Emergency Use Authorization (EUA). This test has been validated in accordance with the FDA's Guidance Document Policy for Diagnostics Testing in Laboratories Certified to Perform High Complexity Testing under CLIA prior to Emergency use Authorization for Coronavirus Disease 2019 during the Public Health Emergency issued on October 11, 2019. Test performed by [facility], [facility], [address] [place] [address]. INFLUENZA A PCR: Negative for Influenza A by RT-PCR INFLUENZA B PCR: Negative for Influenza B by RT-PCR [facility] Progress note 08-21-2022 Note Date & Type Note Facility 08-21-2022 Note HNO ID: [id number] Author: Jeovanny Almanza APRN.SHOT HOLE DRILLER Service: ? Author Type: Nurse Practitioner Type: [...] polyp ECHO TRANSESOPHAG CONGEN PROBE [facility] IMGNG IANDR 02/10/2019 [facility] by Jimi Yi MD LIG/TRNSXJ FLP [...] ear normal. Nose: Congestion present. Mouth/Throat: Lips: [place]. Mouth: Mucous membranes are moist. Pharynx: Oropharynx [...] no guarding o (more content not included)... [facility] Instructions 08-21-2022 Patient Instructions Note Date & Type Note Facility 08-21-2022 Instructions Jeovanny Almanza APRN.SHOT HOLE DRILLER - 08/21/2022 1:52 PM EST How to [...] concerning to you. documented in this encounter [facility] History of Present illness Narrative 08-21-2022 Jeovanny [...] polyp ECHO TRANSESOPHAG CONGEN PROBE [facility] IMG I&R 02/10/2019 [facility] by Jimi Yi MD LIG/TRNSXJ FLP [...] ear normal. Nose: Congestion present. Mouth/Throat: Lips: [place]. Mouth: Mucous membranes are moist. Pharynx: Oropharynx [...] of care. This note was generated using HuTerra software. It may contain errors in wording, punctuation, or spelling. Jeovanny Almanza APRN.KADE documented in this encounter [facility] Evaluation note Note Date & Type Note Facility documented in this encounter [facility] Evaluation note Note Date & Type Note Facility documented in this encounter [facility] Summary Purpose Family History No Family History Records FoundNo Family History Records FoundNo Family History Records Found Advance Directives No Advanced Directives Records FoundDocuments on File Type Date Recorded Patient Neurosurgery Spine Physician Expl anation Advance Directive(s) 09/29/2019 8:57 AM Advance Directive(s) 09/29/2019 8:59 AM Documents on File Type Date Recorded Patient Neurosurgery Spine Physician Expl anation Advance Directive(s) 09/29/2019 8:59 AM Advance Directive(s) 09/29/2019 8:57 AM Health Concerns Infection Onset Date Last Indicated Resolved Time COVID-19 Rule-Out 08/21/2022 08/21/2022 Infection Onset Date Last Indicated Resolved Time COVID-19 Rule-Out 08/21/2022 08/21/2022 08/22/2022 12:09 AM EST Additional Source Comments INFORMATION SOURCE (unrecogn ized section and content) DATE CREATED AUTHOR AUTHOR'S ORGANIZ ATION 04/02/2019 [facility] DATE CREATED AUTHOR AUTHOR'S ORGANIZ ATION 06/03/2023 [facility] Source Comments (unrecognize d section and content) In the event this informatio n is protected by the Federal Confidentiality of Alcohol and Drug Abuse Patient Records regulations: The Federal rules restrict any use of the information to criminally investigate or prosecute any alcohol or drug abuse patient.[facility] the event this information is protected by the Federal Confidentiality of Alcohol and Drug Abuse Patient Records regulations: The Federal rules restrict any use of the information to criminally investigate or prosecute any alcohol or drug abuse patient.[facility] the event this information is protected by the Federal Confidentiality of Alcohol and Drug Abuse Patient Records regulations: The Federal rules restrict any use of the information to criminally investigate or prosecute any alcohol or drug abuse patient.[facility] Reason for Visit (unrecogniz ed section and content) Reason Comments Results Reason Comments Nasal Congestion sore throat and feve r x 2 days Care Teams (unrecognized sec tion and content) Passenger Service Agent Relationship Specialty Start Date End Date Nito Villalobos MD [address] [place] [address] PCP - General Family Medicine 11/22/20 Jimi Yi MD Referring Cardiology 02/28/19 Passenger Service Agent Relationship Specialty Start Date End Date Nito Villalobos MD [address] [place] [id number] PCP - General Family Medicine 11/22/20 [...] BE BASED ON THE PRIMARY CLINICAL RECORDS. [employer] [facility]. provides no warranty or guarantee of the accuracy or completeness of information in this document.
[2023-09-04 12:47] LABS: Hemoglobin A1c 5.6 % (3.8-5.6)
[2023-09-04 12:53] LABS: Thyroid Stim Hormone (TSH) 3.37 uIU/mL (0.358-3.74)
[2023-09-05 08:11] LABS: Thyroid Peroxidase AB 9 IU/mL (0-34)
== END | disposition home or self-care (01) ==
LOC: MTLAB 10:31
PROVIDERS: PCP Family Medicine; Referring Provider Family Medicine; Visit Provider Family Medicine
DX: E03.8 Other specified hypothyroidism (principal); R73.09 Other abnormal glucose
CPT/HCPCS: 36415; 83036; 84443; 86376

== ENCOUNTER → 2023-11-23 | Outpatient (CLI) | payer MEDICARE, OTHER, SELFPAY ==
--- NOTE | 2023-11-23 10:42 | RAD_ITS ---
INDICATION: Pain EXAMINATION/TECHNIQUE: X-RAY - RIGHT XR Wrist 3 VIEWS COMPARISON: FINDINGS: SOFT TISSUES: No soft tissue swelling or gas. No radiopaque foreign body. BONES/JOINTS: No acute fracture or subluxation.. Normal alignment. Preservation of the joint space.. No sclerotic or destructive changes observed. RAD/Wrist min 3 Views IMPRESSION: No acute bony injury. Electronically Signed: Thiago Persaud DO at 17:10 EDT ,
== END | disposition home or self-care (01) ==
PROVIDERS: PCP Family Medicine; Referring Provider Family Medicine; Visit Provider Family Medicine
DX: M25.531 Pain in right wrist (principal)
CPT/HCPCS: 73110

== ENCOUNTER 2024-02-28 15:21 | Outpatient (CLI) | payer MEDICARE, OTHER, SELFPAY ==
[2024-02-28 18:02] LABS: Absolute Neutrophil Count 5.6 X10^3/uL (2.0-7.7); Basophil# 0.08 X10^3/uL; Basophil% 0.9 % (0-1); Eosinophil# 0.13 X10^3/uL; Eosinophils% 1.4 % (0-5); Hematocrit 43.5 % (37-47); Mean Corp Hgb Conc 32.2 g/dL (32-36); Mean Corpuscular Hgb 29.3 pg (27.0-32.0); Mean Platelet Vol. 9.8 fl (6.2-12.0); Monocyte# 0.72 X10^3/uL; Monocyte% 7.7 % (0-10); NRBC Flagged by Analyzer 0 % (0-5); Neutrophil # 5.55 X10^3/uL (2.7-7.7); Neutrophil % 59.6 % (47-70); Platelet Count 475 K/mm3 (150-450); RBC Distribution Width CV 13.6 % (11.6-14.6); RBC Distribution Width SD 45.4 fl (35.1-43.9); Red Blood Count 4.78 M/mm3 (4.2-5.4); White Blood Count 9.3 K/mm3 (4.4-11.0)
[2024-02-28 18:33] LABS: Hemoglobin A1c 5.5 % (3.8-5.6)
[2024-02-28 18:40] LABS: Cholesterol 263 mg/dL (200); High Density Lipoprotein 46 mg/dL; Triglycerides 303 mg/dL; Very Low Density Lipoprotein 61 mg/dL (5-40)
[2024-02-28 18:52] LABS: ALB/GLOB Ratio 0.9 RATIO (0.9-2.4); AST(SGOT) 22 U/L (15-37); Alanine Aminotransfer ALT/SGPT 31 U/L (13-56); Albumin, Serum 3.9 g/dL (3.2-5.0); Alkaline Phosphatase 92 U/L (45-117); Anion Gap 9 (5-15); BUN 11 mg/dL (7-18); BUN/Creat Ratio 13.6 RATIO (10-20); Calcium,Total 9.6 mg/dL (8.5-10.1); Chloride 106 mmol/L (98-107); Creatinine, Serum 0.81 mg/dL (0.55-1.02); EST Glomerular Filtration Rate 75 mL/min (>60); Est Glom Filt Rate - Afr Amer 91 mL/min (>60); Globulin 4.4 g/dL (2.2-4.2); Glucose 113 mg/dL (74-106); Potassium 3.4 mmol/L (3.5-5.1); Protein, Total 8.3 g/dL (6.4-8.2); Sodium Level 139 mmol/L (136-145); Thyroid Stim Hormone (TSH) 3.95 uIU/mL (0.358-3.74)
== END 2024-02-28 23:59 | disposition home or self-care (01) ==
LOC: MTLAB 15:22
PROVIDERS: Internal Medicine Cardiovascular Disease; PCP Family Medicine; Referring Provider Family Medicine; Visit Provider Family Medicine
DX: E03.8 Other specified hypothyroidism (principal); R94.31 Abnormal electrocardiogram [ECG] [EKG]; E78.5 Hyperlipidemia, unspecified; R73.09 Other abnormal glucose
CPT/HCPCS: 36415; 80053; 80061; 83036; 84443; 85025

== ENCOUNTER → 2024-03-24 | Outpatient (CLI) | payer MEDICARE, OTHER, SELFPAY ==
--- NOTE | 2024-03-24 14:10 | CT_ITS ---
STUDY: CTA CHEST REASON FOR EXAM: Female, 63 years old. Dilatation of thoracic aorta RADIATION DOSAGE (If Supplied By Facility): CTDIvol = ( 12.93 ) mGy, DLP = ( 584.04 ) mGycm TECHNIQUE: The examination was performed with the intravenous administration of IV 100mL Isovue-370. Post-processing of the angiographic images was performed, with multiplanar reformation and 3D reconstruction. Individualized dose optimization techniques were used for this CT. COMPARISON: None. FINDINGS: Normal enhancement of the main pulmonary artery and right and left pulmonary arteries. Normal enhancement of the bilateral peripheral pulmonary arteries. There is no demonstrated pulmonary embolism. There is aneurysmal dilatation of the ascending aorta. The transverse diameter of the ascending aorta measures 45.7 mm''s. Mild degree of atherosclerotic plaque formation of the aortic arch. There is no demonstrated aortic dissection. Normal heart and pericardium. No coronary artery calcification is seen. Normal mediastinum. Normal hilar regions. Normal visualized trachea and bronchi. The lungs are well expanded. Normal pulmonary parenchyma. Normal pleura. Normal chest wall structures. There are degenerative changes of thoracic spine. Diffuse fatty infiltration of the liver. CT/CTA Chest W/WO Contrast IMPRESSION: Dilatation of the root of the ascending thoracic aorta with a transverse dimension of 45.7 mm. Electronically Signed: Duy Coppola MD at 14:40 EDT ,
== END | disposition home or self-care (01) ==
LOC: CT 13:57
PROVIDERS: PCP Family Medicine; Referring Provider Internal Medicine Cardiovascular Disease; Visit Provider Internal Medicine Cardiovascular Disease
DX: I77.810 Thoracic aortic ectasia (principal); I35.1 Nonrheumatic aortic (valve) insufficiency
CPT/HCPCS: 71275; Q9967

== ENCOUNTER → 2024-04-21 | Outpatient (CLI) | payer MEDICARE, OTHER, SELFPAY ==
--- NOTE | 2024-04-21 08:03 | ECHOD_ITS ---
Reason For Study: Non Rheumatic AI Procedure This was a 2D Doppler, Color Flow transthoracic echocardiogram. Exam performed in department. Left Ventricle Normal LV size. Mild concentric left ventricular hypertrophy. The left ventricular ejection fraction is 65 %. Stage 1 diastolic dysfunction. Right Ventricle Normal right ventricle. Atria The left atrium is mildly enlarged. Normal right atrium. Mitral Valve Mild (1+) mitral valve insufficiency. Tricuspid Valve Mild tricuspid valve insufficiency. Normal pulmonary artery pressure. Aortic Valve Trisinus/trileaflet aortic valve. Mild aortic stenosis. Mild (1+) aortic valve insufficiency. Pulmonic Valve The pulmonic valve is not well visualized. Great Vessels Mildly dilated ascending aorta. Pericardium/Pleural No pericardial effusion. MMode/2D Measurements & Calculations LVIDd: 4.8 cm IVSd: 1.2 cm LVOT diam: 2.0 cm LVIDs: 3.3 cm LVPWd: 1.0 cm LVOT area: 3.1 cm2 FS: 31.3 % Ao root diam: 4.5 cm asc Aorta Diam: 4.7 cm LAV(MOD-bp): 69.1 ml LA dimension: 4.4 cm LAV(MOD-bp) Indexed: 34.3 ml/m2 LAV(MOD-sp2): 65.1 ml LAV(MOD-sp4): 63.7 ml SV(MOD-sp4): 49.7 ml SV(sp4-el): 55.1 ml LVAd ap4: 31.1 cm2 LVLd ap4: 8.3 cm EDV(MOD-sp4): 93.8 ml EDV(sp4-el): 99.1 ml LVAs ap4: 18.6 cm2 LVLs ap4: 6.7 cm ESV(MOD-sp4): 44.1 ml ESV(sp4-el): 44.0 ml EF(MOD-sp4): 53.0 % EF(sp4-el): 55.6 % LA A4 area: 22.2 cm2 RA A4 area: 16.3 cm2 TAPSE: 2.3 cm Time Measurements MV dec time: 0.23 sec Doppler Measurements & Calculations MV E max tigre: 73.5 cm/sec Lat Peak E' Tigre: 7.0 cm/sec Med Peak E' Tigre: 8.4 cm/sec MV A max tigre: 96.1 cm/sec E/E' lat: 10.5 E/E' med: 8.8 MV E/A: 0.76 MV V2 max: 113.2 cm/sec MV P1/2t max tigre: 109.4 cm/sec Ao V2 max: 260.8 cm/sec MV max P.1 mmHg MV P1/2t: 93.6 msec Ao max P.5 mmHg MV V2 mean: 56.9 cm/sec Ao V2 mean: 164.5 cm/sec MV mean P.6 mmHg MV dec slope: 342.5 cm/sec2 Ao mean P.0 mmHg MV V2 VTI: 39.7 cm MVA(P1/2t): 2.4 cm2 Ao V2 VTI: 64.4 cm AV (velocity ratio): 0.48 MVA(VTI): 2.5 cm2 THIAGO(I,D): 1.5 cm2 THIAGO(V,D): 1.6 cm2 AI max tigre: 483.3 cm/sec LV V1 max: 128.8 cm/sec SV(LVOT): 97.8 ml AI max P.6 mmHg LV V1 max P.7 mmHg LV V1 mean P.3 mmHg AI dec slope: 214.4 cm/sec2 LV V1 mean: 83.4 cm/sec AI P1/2t: 660.4 msec LV V1 VTI: 31.1 cm PA V2 max: 95.0 cm/sec TR max tigre: 263.2 cm/sec PA max PG (full): 1.1 mmHg TR max P.7 mmHg ECHO/Echo Complete Interpretation Summary Mild concentric left ventricular hypertrophy. The left ventricular ejection fraction is 65 %. Stage 1 diastolic dysfunction. The left atrium is mildly enlarged. Mild (1+) mitral valve insufficiency. Mild tricuspid valve insufficiency. Mild aortic stenosis. Mild (1+) aortic valve insufficiency. Mildly dilated ascending aorta. Ordering Physician: Carlyn Pickard Referring Physician: Gavino Melendez Performed By: Brodwolf, , RCS
== END | disposition home or self-care (01) ==
LOC: CVS 07:56
PROVIDERS: PCP Family Medicine; Referring Provider Internal Medicine Cardiovascular Disease; Visit Provider Internal Medicine Cardiovascular Disease
DX: I35.1 Nonrheumatic aortic (valve) insufficiency (principal); I77.810 Thoracic aortic ectasia; I10 Essential (primary) hypertension; R06.09 Other forms of dyspnea; R94.31 Abnormal electrocardiogram [ECG] [EKG]
CPT/HCPCS: 93306

== ENCOUNTER → 2024-05-08 | Outpatient (CLI) | payer MEDICARE, OTHER, SELFPAY ==
--- NOTE | 2024-05-08 08:16 | BI_ITS ---
MAMMOGRAPHY - BILATERAL SCREENING REASON FOR EXAM: Female, 63 years old. Routine annual screening examination. PERTINENT HISTORY: Non-contributory. TECHNIQUE: Digital bilateral breast vishnu (3D mammographic acquisition) in the CC and MLO projections. 2-D mediolateral oblique (MLO) and craniocaudad (CC) views of both breasts were obtained. CAD: Full Field Digital Mammography with Computer Added Detection was performed. COMPARISON: Comparison is made with prior study of May 07, 2023 and April 27, 2022. FINDINGS: Breast Composition: There are scattered areas of fibroglandular density. There are no dominant masses or suspicious calcifications. Stable benign-appearing bilateral axillary lymph nodes. No other significant abnormalities are identified. There has been no significant change since the prior study. BI/SCRN MAMM (CAD)W/VISHNU BILAT IMPRESSION: Stable bilateral screening mammogram. Yearly follow-up mammogram recommended. (A) ASSESSMENT CATEGORY: BIRADS Category 2: Benign. A letter regarding these results will be sent to the patient by the facility within 30 days. Approximately 10% of breast cancers are not detected by mammography. A normal mammogram should not delay biopsy of a clinically suspicious abnormality. [id number] Electronically Signed: Duy Coppola MD at 9:18 EDT ,
== END | disposition home or self-care (01) ==
LOC: OPBI 08:16
PROVIDERS: PCP Family Medicine; Referring Provider Obstetrics & Gynecology; Visit Provider Obstetrics & Gynecology
DX: Z12.31 Encounter for screening mammogram for malignant neoplasm of breast (principal)
CPT/HCPCS: 77063; 77067

== ENCOUNTER → 2024-06-03 | Outpatient (CLI) | payer MEDICARE, OTHER, SELFPAY ==
--- NOTE | 2024-06-03 11:28 | US_ITS ---
STUDY: ULTRASOUND TRANSVAGINAL CLINICAL: Female, 63 years old. intermittent pelvic pain TECHNIQUE: Transvaginal COMPARISON: None. FINDINGS: Status post hysterectomy.. 1.5 cm nabothian cyst within the cervix. The ovaries are not visualized.. There is no free fluid in the pelvis. Polycystic ovary disease: No. US/Transvaginal Non- IMPRESSION: Status post hysterectomy. 1.5 cm nabothian cyst within the remaining cervix. Nonvisualization of the ovaries. Electronically Signed: Jose Toth MD at 10:07 EDT ,
--- OUTSIDE RECORDS SUMMARY | 2024-06-03 11:45 | XMS RPT_ITS | CCD ---
Author Organization [facility] Care Team Providers Care Tutor Coordinator Name Role Phone Tizzano, Dangelo P Unavailable [...] Propensity to adverse reactions to drug (disorder) [facility] Repository (4 sources) Codeine; Translations: [CODEINE] Drug Allergy 7 Intolerance [facility] Work Phone: (4 sources) FLUoxetine; Translations: [FLUOXETINE HCL] Drug Allergy 7 [facility] Work Phone: Medications Completed/Discontinued Medications Medication Drug Class(es) Dates Sig (Normalized) Sig (Original) benzonatate 100 mg oral capsule (3 sources) Non-narcotic Antitussive Start: 08-21-2022 take 1 capsule by mouth every eight hours as needed benzonatate (TESSALON PERLES) 100 mg capsule Take 1 capsule by mouth three times daily as needed for cough. 12 capsule 0 08/21/2022 Active Comment on above: Take 1 capsule by [facility] three times daily as needed for cough. calcium carbonate 1000 mg oral tablet (3 sources) Start: 06-19-2013 take 3 tablets by mouth once daily Calcium Carbonate 390 mg (1,000 mg) tab Take 3 tablets by mouth once daily. 0 06/19/2013 Active Comment on above: Take 3 tablets by mo uth once daily. cholecalciferol 0.025 mg oral capsule (3 sources) Vitamin D Start: 06-19-2013 take 3 capsules by mouth once daily Cholecalciferol, Vitamin D3, 1,000 unit cap Take 3 capsules by mouth once daily. 0 06/19/2013 Active Comment on above: Take 3 capsules by m outh once daily. clobetasol propionate 0.5 mg/ml topical cream (3 sources) Corticosteroid Start: 12-31-2019 clobetasol (TEMOVATE) 0.05 % cream APPLY THIN LAYER TWICE A DAY X 2 WEEKS THEN DAILY X2 WEEKS APPLY THIN LAYER MASSAGE IN TO COVER AREA 0 12/31/2019 Active Comment on above: APPLY THIN LAYER TWI CE A DAY X 2 WEEKS THEN DAILY X2 WEEKS APPLY THIN LAYER MASSAGE IN TO COVER AREA olmesartan medoxomil 40 mg oral tablet (3 sources) Angiotensin 2 Receptor Dayo Start: 01-26-2020 take 1 tablet by mouth once daily olmesartan (BENICAR) 40 mg tablet TAKE 1 TABLET BY MOUTH EVERY DAY 90 tablet 2 01/26/2020 Active Comment on above: TAKE 1 TABLET BY RUDY EVERY DAY omega-3 fatty acids 1,000 mg cap (3 sources) Start: 09-13-2012 take 5 capsules by mouth once daily omega-3 fatty acids 1,000 mg cap Indications: Hyperlipidemia Take 5 capsules by mouth once daily. 0 09/13/2012 Active Comment on above: Take 5 capsules by m outh once daily. Potassium Chloride (3 sources) take 1 tablet by mouth once daily potassium chloride (KLOR-CON M20 ORAL) Take 1 tablet by mouth once daily. 0 Active Comment on above: Take 1 tablet by rudy once daily. ubidecarenone 100 mg oral capsule (3 sources) coenzyme Q10 (CO Q-10) 100 mg cap capsule Take 100 mg by mouth twice daily. 0 Active Comment on above: Take 100 mg by mouth twice daily. Vitamin B Complex (3 sources) Start: 06-19-2013 take 1 tablet by mouth once daily vitamin b complex (B COMPLETE) tab Take 1 tablet by mouth once daily. 0 06/19/2013 Active Comment on above: Take 1 tablet by rudy th once daily. Problems Active Problems Problem Classification Problem Date [...] Name Value Interpretation Reference Range Facil ity KOKOOVon 06-02-2023 CNOV Office Visit (UCWSTR ) IVORY IYER ([id number]) 1960 F Date Time Provider Department 06/02/23 8:15 AM JUAN HARRIS WSTR During your visit today, we recorded the following information about you: Temperature Pulse Respiration Blood pressure 99.2 degrees 82/minute 16/minute 122/80 Weight 91.2 kg Juan Harris PA-C 06/02/2023 9:03 AM Signed This note was created using Recommindriter. Subjective Ivory Iyer is a 62 year [...] QT interval chronic SBO (small bowel obstruction) ([facility]) 02/10/2011 Current Outpatient Medications Medication Sig Dispense [...] hyperplasstic rectal polyp ECHO TRANSESOPHAG CONGEN PROBE [facility] IMGNG IANDR 02/10/2019 [facility] by Jimi Yi MD LIG/TRNSXJ FLP [...] ear normal. Nose: Congestion present. Mouth/Throat: Lips: [place]. Mouth: Mucous membranes are moist. Pharynx: Pharyngeal [...] ROUTINE - ROUTINE FLU A/B + RSV Juan Harris (more content not included)... Normal [facility] ROUTINE FLU A/B + RSVon 10-2 FLUAV RNA HOMAR+probe Ql (Unsp spec) Not detected Normal Not Detected [facility] Comment on above: Order Comment: Speci men Type: SWAB OF INTERNAL NOSE Ordering Facility: [facility] Address: [address] [place] [address] Performed By: #### R TFRSV, 68368-6 #### [facility] CLIA [id number] [address] [place] [address] [place] FLUBV RNA HOMAR+probe Ql (Unsp spec) Not detected Normal Not Detected [facility] Comment on above: Order Comment: Speci men Type: SWAB OF INTERNAL NOSE Ordering Facility: [facility] Address: [address] [place] [address] Performed By: #### R TFRSV, 55297-6 #### [facility] CLIA [id number] [address] [place] [address] [place] RSV A RNA HOMAR+probe Ql (Unsp spec) Not detected Normal Not Detected [facility] Comment on above: Order Comment: Speci men Type: SWAB OF INTERNAL NOSE Ordering Facility: [facility] Address: [address] [place] [address] Performed By: #### R TFRSV, 16787-2 #### [facility] CLIA [id number] [facility] [address] OF [place] SARS-CoV-2 RNA Resp Ql HOMAR+p robeon 06-02-2023 SARS-CoV-2 (COVID-19) RNA HOMAR+probe Ql (Resp) COVID 19 RESULT: Not detected The method used is RT-PCR or an equivalent NAAT method. Reference Range (the expected result in uninfected individuals): Not detected Normal [facility] Comment on above: Performed By: #### R TFRSV, 28097-5 #### [facility] CLIA [id number] [address] [place] [address] OF [place] STREP A MOLECULAR (POC)on Procedural Control Valid [facility] Strep A (POCT) Negative Negative [facility]20[facility] IVORY IYER ([id number]) 1960 F Date Time Provider Department 08/22/22 MIRIAM LEUNG [facility] During your visit today, we recorded the following information about you: EDY Rendon 08/22/2022 7:40 AM Signed Please let patient know negative for covid and flu. Mallory Casillas LPN 08/22/2022 8:06 AM Signed Unable to reach patient and mailbox is full-try later.Mallory Weller LPN 08/22/2022 11:35 AM Signed Phone call placed no answer unable to leave a message, mailbox reported as full, [employer] logon 08/21/2022 results viewed. Jeffery Weller LPN Allergies As of Date: 08/22/2022 Noted Allergy Reaction CODEINE 01/24/2007 5 - Intolerance Comments: lightheadedness PROZAC (FLUOXETINE HCL) 01/24/2007 Date Reviewed: 08/21/2022 Reviewed by: Leticia Almanza APRN.NANOSCIENCE TECHNICIAN - Fully Assessed Reason for Visit: Results [95] Prescriptions as of 08/22/2022 - clobetasol (TEMOVATE) 0.05 % cream APPLY THIN LAYER TWICE A DAY X 2 WEEKS THEN DAILY X2 WEEKS APPLY THIN LAYER MASSAGE IN TO COVER AREA - benzonatate (TESSALON PERLES) 100 mg capsule Take 1 capsule by mouth three times daily as needed for cough. - olmesartan (BENICAR) 40 mg tablet TAKE 1 TABLET BY MOUTH EVERY DAY - coenzyme Q10 (CO Q-10) 100 mg cap capsule Take 100 mg by mouth twice daily. - potassium chloride (KLOR-CON M20 ORAL) Take 1 tablet by mouth once daily. - Cholecalciferol, Vitamin D3, 1,000 unit cap Take 3 capsules by mouth once daily. - Calcium Carbonate 390 mg (1,000 mg) tab Take 3 tablets by mouth once daily. - vitamin b complex (B COMPLETE) tab Take 1 tablet by mouth once daily. - omega-3 fatty acids 1,000 mg cap Take 5 capsules by mouth once daily. Meds Comments as of 01/26/2020: 01/26/20 Not taking Benicar, takes Losartan. Leela Rojas RN NOC Problem List As Of Date 08/22/2022 Noted Resolved History of small bowel obstruction [Z87.19] 02/24/2011 Essential hypertension [I10] 09/25/2012 S/P abdominal supracervical subtotal hysterecto*09/25/2012 Special screening for malignant neoplasms, colo*09/26/2012 Benign neoplasm of colon [D12.6] 10/11/2012 SBO (small bowel obstruction) (HCC) [K56.609] 12/25/2013 Generalized abdominal pain [R10.84] 11/08/2015 Moderate aortic insufficiency [I35.1] 11/30/2016 Mild aortic stenosis [I35.0] 11/30/2016 Obesity, Class I, BMI 30-34.9 [E66.9] 07/17/2019 Aortic dilatation (HCC) (4.3cm mid ascending) [*07/17/2019 Encounter Status:Closed by JEFFERY WELLER LPN on 08/22/22 [facility] CNOVon 08-21-2022 CNOV Office Visit (UCWSTR ) IVORY IYER ([id number]) 1960 F Date Time Provider Department 08/21/22 1:30 PM LETICIA ALMANZA [facility] During your visit today, we recorded the following information about you: Temperature Pulse Respiration Blood pressure 98.2 degrees 87/minute 20/minute 148/82 Weight 84.9 kg Leticia Almanza, CHIKA.NANOSCIENCE TECHNICIAN 08/21/2022 2:22 PM Signed Subjective HPI Nontoxic-appearing female presents urgent care [...] rectal polyp ECHO TRANSESOPHAG CONGEN PROBE [facility] IMGNG IANDR 02/10/2019 [facility] by Jimi Yi MD LIG/TRNSXJ FLP [...] ear normal. Nose: Congestion present. Mouth/Throat: Lips: [place]. Mouth: Mucous membranes are moist. Pharynx: Oropharynx is clear. Uvula midline. Posterior oropharyngeal erythema present. No pharyngeal swelling, oropharyngeal exudate or uvula swelling. Eyes: Conjunctiva/sclera: Conjunctivae normal. Pupils: Pupils are equal, round, and reactive to light. Cardiovascular: Rate and Rhythm: Normal rate and regular rhythm. Heart sounds: Normal heart sounds. Pulmonary: Effort: Pulmonary effort is normal. No tachypn (more content not included)... Normal [facility] STREP A MOLECULAR (POC)on Procedural Control Valid [facility] Strep A (POCT) Negative Negative [facility] CNCOon 04-02-2019 CNCO Letter Text Normal [facility] CNOVon 04-02-2019 CNOV Office Visit (AGVASACC) IVORY IYER ([id number]) 1960 F Date Time Provider Department 04/02/19 2:00 PM NIALL LOU During your visit today, we recorded the following information about you: Pulse Respiration Blood pressure Weight 83/minute 20/minute 140/74 92.5 kg Height 1.702 m Randi Kim LPN 04/02/2019 2:17 PM Signed CARDIAC REHAB 5 METER WALK TEST SERVICE DATE: 04/02/2019 SERVICE TIME: 1416 ASSESSMENT: SIGNATURE: Randi Kim LPN PATIENT NAME: Ivory Iyer DATE: April 02, 2019 TIME: 2:16 PM PAGER/CONTACT #: [id number] 1. 4.7 sec 2. 4.5 sec 3. 4.4 sec JAJA Arboleda APRN.KADE BRAUN 04/02/2019 2:54 PM Addendum You came in to see Dr. Lou today for surgical evaluation of your ascending aorta aneurysm with aorta valve insufficiency (leaky valve). We believe your symptom of shortness of breath is likely related to the leaky valve/aortic insufficiency. Dr. Lou thinks you have indication for ascending aorta aneurysm replacement with aortic valve sparing procedure. We will refer you to Dr. Isbell's for this issue. This is not an emergency, so can be proceeded accordingly. In preparation, you need a gated Chest CT and dental clearance. Continue to monitor your blood pressure and take your blood pressure medications as prescribed. Please avoid strenuous heavy lifting that involves bearing down. Should you have sudden onset of severe chest or back pain, go to the nearest emergency room and tell your caregivers that you have a dilated aorta. Thanks for coming in to see us today. Please call us if you have any concerns/questions: [phone] TIM Erickson MD 04/02/2019 3:21 PM Signed Ivory Iyer is a 58 year old woman referred by Dr. Antione Yi for evaluation of symptomatic aortic insufficiency. She is known to have AI and has been followed by Dr. Yi for approximatley 3 years. She has had serial echos. She has been asymptomatic until recently. She is now experiencing increasing exertional dyspnea, fatigue and limitation. SHe denies chest pressure, edema, orthopnea, etc. Her most recent echo shows a trileaflet aortic valve with 3+ AI and normal LV function with a dilated aortic root measuring 4.2 cm. Recent left heart cath shows normal coronary arteries. Aortic root injection confirms 3+ AI and aneurysmal dilatation of the root and ascending aorta. Right heart cath shows no PA hypertension. She has not had CT of the chest. She is treated for hypertension. There is no family history of aneurysm or dissection. PAST MEDICAL HISTORY Diagnosis Date - Aortic valve disease - Dyspnea on exertion - Fatigue - First degree AV block - HTN (hypertension) - Marfan's syndrome with aortic dilation - Nonrheumatic aortic valve insufficiency - Obesity - Prolonged QT interval chronic - SBO (small bowel obstruction) (HCC) PAST SURGICAL HISTORY Procedure Laterality Date - APPENDECTOMY - COLONOS W/REM POLYP SNARE 10-11-12 - LIGATE FALLOPIAN TUBE Tubal ligation - PAST SURGICAL HISTORY OF infant and 2012 bowel surgery - ALONDRA 02/10/2019 [facility] by Jimi Yi MD - TOTAL ABDOM HYSTERECTOMY Hysterectomy, TIFFANIE Current Outpatient Medications on File Prior to Visit: olmesartan (BENICAR) 20 mg tablet Take 10 mg by mouth once daily. potassium chloride (KLOR-CON M20 ORAL) Take by mouth once daily. Cholecalciferol, Vitamin D3, 1,000 unit cap Take 3 capsules by mouth once daily. vitamin b complex (B COMPLETE) tab Take 1 tablet by mouth once daily. coenzyme Q10 (CO Q-10) 100 mg cap Take 1 capsule by mouth once daily. omega-3 fatty acids 1,000 mg cap Take 5 capsules by mouth once daily. perflutren lipid microspheres (DEFIN[employer]ater [employer]) 1.1 mg/mL injection (to be provided with echo procedure) Inject 1.3 mL intravenously as directed. (Patient not taking: Reported on 04/02/2019 ) losartan (COZAAR) 100 mg tablet Take 1 tablet by mouth once daily. (Patient not taking: Reported on 04/02/2019 ) methylPREDNISolone (MEDROL DOSE-PACK) 4 mg Dose-Pack As Instructed per package (Patient not taking: Reported on 04/02/2019 ) albuterol HFA (PROVENTIL HFA, VENTOLIN HFA) 90 mcg/actuation inhaler Inhale 2 Puffs as instructed every 4 hours as needed for Wheezing/Shortness of Breath. (Patient not taking: Reported on 04/02/2019 ) Calcium Carbonate 390 mg (1,000 mg) tab Take 3 tablets by mouth once daily. (Patient not taking: Reported on 04/02/2019 ) multivitamin tablet Take 1 tablet by mouth once daily. (Patient not taking: Reported on 04/02/2019 ) No current facility-administered medications on file prior to visit. REVIEW OF SYSTEMS: GENERAL: Fever - No Chills - No Night sweats - No Changes in weight - No NEUROLOGICAL: Headaches - No Seizures - No Passing out - No History of stroke or mini-stroke - No Head injury or trauma - No Numbness, tingling or sensation of pins and needles - No HEAD, EYES, EARS, NOSE, AND THROAT: Changes in hearing - No Changes in vision - No Nose bleeds - No CARDIOVASCULAR: Chest pain or pressure - No Palpitations - No Valvular heart disease - Yes High blood pressure - Yes Irregular heart rate - No Heart attack - No Heart failure - No High Cholesterol - No History of rheumatic fever - No History of Scarlet fever - No History of atrial fibrillation - No RESPIRATORY: Cough - No Wheezing - No Shortness of breath - No Shortness of breath with exertion - Yes Coughing up blood - No Asthma - No Bronchitis - No Blood clot in your lung - No GASTROINTESTINAL: Abdominal discomfort - No Nausea - No Vomiting - No Diarrhea - No Constipation - No Difficulty swallowing - No Pain with swallowing - No Stomach pain after eating - No Passing blood with bowel movement - No Black tarry stool - No History of stomach ulcers - No Acid reflux or heartburn - No GENITOURINARY: GENITOURINARY: EXTREMITY: Edema (swelling) - No Intermittent claudication (pain with walking) - No MUSCULOSKELETAL: Joint pain - No Joint swelling - No Back pain - No Muscle pain or ache - No Skin: Rash - No Lesions - No Sores - No Ulcers - No Tenderness - No Skin cancer - No HEMATOLOGY: Bleeding disorder - No Easy bruising - No Anemia - No Cancer - No Blood transfusions - No Blood clots - No ENDOCRINE: Diabetes - No Thyroid disorder - No PSYCHOLOGICAL: Depression - No Anxiety - No OTHER: I have reviewed Heart Catherization and 2D echocardiogram. On examination, she appears well and is breathing comfortably. Vitals signs are BP 140/74 (BP Site: Left Arm) Pulse 83 Resp 20 Ht 5' 7 (1.702 m) Wt 204 lb (92.5 kg) SpO2 97% BMI 31.95 kg/m? . There is no JVD. No cervical or supraclavicular adenopathy is palpated. The chest is symmetrical without deformity. Breath sounds are clear bilaterally. The cardiac rhythm is regular. There is a 2/6 diastolic murmur and . The carotid, subclavian, and radial pulses are 2+ and equal bilaterally. The abdomen is soft and non-tender. There are no abdominal masses. There is no hepatojugular reflux. There is no pretibial edema. There is no clubbing or cyanosis. In summary, Ivory Iyer is a 58 year old woman with an aortic root and ascending aortic aneurysm and 3+ AI. SHe is experiencing new onset exertional symptoms. I do think that her symptoms are due to the AI. I think she is a good candidate for valve sparing root replacement. The size of the ascending aorta is certainly greater than 4.2 cm and I would estimate it at around 5+ based on the cath and echo; CT chest is now ordered. I will refer her to Dr. Nito Montes for consideration for valve sparing root replacement. Niall Lou MD Referring Provider: FADUMO VO [[id number]] Allergies As of Date: 04/02/2019 Noted Allergy Reaction CODEINE 01/24/2007 5 - Intolerance Comments: lightheadedness PROZAC (FLUOXETINE HCL) 01/24/2007 Date Reviewed: 04/02/2019 Reviewed by: Randi (Computing Machine Operator) Julio - Fully Assessed Reason for Visit: New Patient Evaluation [154] Cmt: Marfan syndrome, enlarged aorta, ref by Dr. Yi images from echo, cardiac cath in system Primary Visit Diagnosis:Moderate aortic insufficiency [I35.1] Other Visit Diagnosis:Thoracic aortic aneurysm without rupture (HCC) [I71.2] Order(s):CTA CHEST (GATED) W IVCON [[id number]] Order #: [id number] FUTURE CONSULT TO THORACIC [[id number]] Order #: [id number]: 1 CREATININE BLD [SQCRET] Order #: [id number] FUTURE Prescriptions as of 04/02/2019 Sig: OLMESARTAN 20 MG TABLET Take 10 mg by mouth once jeannine* KLOR-CON M20 ORAL Take by mouth once daily. CHOLECALCIFEROL (VITAMIN D3) * Take 3 capsules by mouth once* VITAMIN B COMPLEX TABLET Take 1 tablet by mouth once d* COENZYME Q10 100 MG CAPSULE Take 1 capsule by mouth once * OMEGA-3 FATTY ACIDS 1,000 MG * Take 5 capsules by mouth once* PERFLUTREN LIPID MICROSPHERES* Inject 1.3 mL intravenously a* Patient not taking: Reported on 04/02/2019 LOSARTAN 100 MG TABLET Take 1 tablet by mouth once d* Patient not taking: Reported on 04/02/2019 METHYLPREDNISOLONE 4 MG TABLE* As Instructed per package Patient not taking: Reported on 04/02/2019 ALBUTEROL SULFATE HFA 90 MCG/* Inhale 2 Puffs as instructed * Patient not taking: Reported on 04/02/2019 CALCIUM CARBONATE 390 MG CALC* Take 3 tablets by mouth once * Patient not taking: Reported on 04/02/2019 MULTIVITAMIN TABLET Take 1 tablet by mouth once d* Patient not taking: Reported on 04/02/2019 Problem List As Of Date 04/02/2019 Noted Resolved History of small bowel obstruction [Z87.19] INVALID FOR* Essential hypertension [I10] INVALID FOR* S/P abdominal supracervical subtotal hysterecto*INVALID FOR* Special screening for malignant neoplasms, colo*INVALID FOR* Benign neoplasm of colon [D12.6] INVALID FOR* SBO (small bowel obstruction) (HCC) [K56.609] INVALID FOR* Generalized abdominal pain [R10.84] INVALID FOR* Moderate aortic insufficiency [I35.1] INVALID FOR* Mild aortic stenosis [I35.0] INVALID FOR* Other instructions from your clinician: You came in to see Dr. Lou today for surgical evaluation of your ascending aorta aneurysm with aorta valve insufficiency (leaky valve). We believe your symptom of shortness of breath is likely related to the leaky valve/aortic insufficiency. Dr. Lou thinks you have indication for ascending aorta aneurysm replacement with aortic valve sparing procedure. We will refer you to Dr. Isbell's for this issue. This is not an emergency, so can be proceeded accordingly. In preparation, you need a gated Chest CT and dental clearance. Continue to monitor your blood pressure and take your blood pressure medications as prescribed. Please avoid strenuous heavy lifting that involves bearing down. Should you have sudden onset of severe chest or back pain, go to the nearest emergency room and tell your caregivers that you have a dilated aorta. Thanks for coming in to see us today. Please call us if you have any concerns/questions: [phone] Cortes Chong APRN.NANOSCIENCE TECHNICIAN Visit Notes: >> Randi Kim SunApr 02, 2019 2:16 PM Status: Signed CARDIAC REHAB 5 METER WALK TEST SERVICE DATE: 04/02/2019 SERVICE TIME: 1416 ASSESSMENT: SIGNATURE: Randi Kim LPN PATIENT NAME: Ivory Iyer DATE: April 02, 2019 TIME: 2:16 PM PAGER/CONTACT #: [id number] 1. 4.7 sec 2. 4.5 sec 3. 4.4 sec Randi Kim LPN Level of Service: NEW PATIENT VISIT LEVEL 4 [[id number]] Letter Text Encounter Status:Closed by NIALL LOU MD on 04/02/19 Normal [facility] HISTORY PHYSICALon 9 HISTORY PHYSICAL HNO ID: [id number] Author: Niall Lou Service: ? Author Type: Physician Type: HANDP Filed: 04/02/2019 3:21 PM Note Text: Ivory Iyer is a 58 year old woman referred by Dr. Antione Yi for evaluation of symptomatic aortic insufficiency. She is known to have AI and has been followed by Dr. Yi for approximatley 3 years. She has had serial echos. She has been asymptomatic until recently. She is now experiencing increasing exertional dyspnea, fatigue and limitation. SHe denies chest pressure, edema, orthopnea, etc. Her most recent echo shows a trileaflet aortic valve with 3+ AI and normal LV function with a dilated aortic root measuring 4.2 cm. Recent left heart cath shows normal coronary arteries. Aortic root injection confirms 3+ AI and aneurysmal dilatation of the root and ascending aorta. Right heart cath shows no PA hypertension. She has not had CT of the chest. She is treated for hypertension. There is no family history of aneurysm or dissection. PAST MEDICAL HISTORY Diagnosis Date - Aortic valve disease - Dyspnea on exertion - Fatigue - First degree AV block - HTN (hypertension) - Marfan's syndrome with aortic dilation - Nonrheumatic aortic valve insufficiency - Obesity - Prolonged QT interval chronic - SBO (small bowel obstruction) (HCC) PAST SURGICAL HISTORY Procedure Laterality Date - APPENDECTOMY - COLONOS W/REM POLYP SNARE 10-11-12 - LIGATE FALLOPIAN TUBE Tubal ligation - PAST SURGICAL HISTORY OF and 2012 bowel surgery - ALONDRA 02/10/2019 [facility] by iJmi Yi MD - TOTAL ABDOM HYSTERECTOMY Hysterectomy, TIFFANIE Current Outpatient Medications on File Prior to Visit: olmesartan (BENICAR) 20 mg tablet Take 10 mg by mouth once daily. potassium chloride (KLOR-CON M20 ORAL) Take by mouth once daily. Cholecalciferol, Vitamin D3, 1,000 unit cap Take 3 capsules by mouth once daily. vitamin b complex (B COMPLETE) tab Take 1 tablet by mouth once daily. coenzyme Q10 (CO Q-10) 100 mg cap Take 1 capsule by mouth once daily. omega-3 fatty acids 1,000 mg cap Take 5 capsules by mouth once daily. perflutren lipid microspheres (DEFINITY) 1.1 mg/mL injection (to be provided with echo procedure) Inject 1.3 mL intravenously as directed. (Patient not taking: Reported on 04/02/2019 ) losartan (COZAAR) 100 mg tablet Take 1 tablet by mouth once daily. (Patient not taking: Reported on 04/02/2019 ) methylPREDNISolone (MEDROL DOSE-PACK) 4 mg Dose-Pack As Instructed per package (Patient not taking: Reported on 04/02/2019 ) albuterol HFA (PROVENTIL HFA, VENTOLIN HFA) 90 mcg/actuation inhaler Inhale 2 Puffs as instructed every 4 hours as needed for Wheezing/Shortness of Breath. (Patient not taking: Reported on 04/02/2019 ) Calcium Carbonate 390 mg (1,000 mg) tab Take 3 tablets by mouth once daily. (Patient not taking: Reported on 04/02/2019 ) multivitamin tablet Take 1 tablet by mouth once daily. (Patient not taking: Reported on 04/02/2019 ) No current facility-administered medications on file prior to visit. REVIEW OF SYSTEMS: GENERAL: Fever - No Chills - No Night sweats - No Changes in weight - No NEUROLOGICAL: Headaches - No Seizures - No Passing out - No History of stroke or mini-stroke - No Head injury or trauma - No Numbness, tingling or sensation of pins and needles - No HEAD, EYES, EARS, NOSE, AND THROAT: Changes in hearing - No Changes in vision - No Nose bleeds - No CARDIOVASCULAR: Chest pain or pressure - No Palpitations - No Valvular heart disease - Yes High blood pressure - Yes Irregular heart rate - No Heart attack - No Heart failure - No High Cholesterol - No History of rheumatic fever - No History of Scarlet fever - No History of atrial fibrillation - No RESPIRATORY: Cough - No Wheezing - No Shortness of breath - No Shortness of breath with exertion - Yes Coughing up blood - No Asthma - No Bronchitis - No Blood clot in your lung - No GASTROINTESTINAL: Abdominal discomfort - No Nausea - No Vomiting - No Diarrhea - No Constipation - No Difficulty swallowing - No Pain with swallowing - No Stomach pain after eating - No Passing blood with bowel movement - No Black tarry stool - No History of stomach ulcers - No Acid reflux or heartburn - No GENITOURINARY: GENITOURINARY: EXTREMITY: Edema (swelling) - No Intermittent claudication (pain with walking) - No MUSCULOSKELETAL: Joint pain - No Joint swelling - No Back pain - No Muscle pain or ache - No Skin: Rash - No Lesions - No Sores - No Ulcers - No Tenderness - No Skin cancer - No HEMATOLOGY: Bleeding disorder - No Easy bruising - No Anemia - No Cancer - No Blood transfusions - No Blood clots - No ENDOCRINE: Diabetes - No Thyroid disorder - No PSYCHOLOGICAL: Depression - No Anxiety - No OTHER: I have reviewed Heart Catherization and 2D echocardiogram. On examination, she appears well and is breathing comfortably. Vitals signs are BP 140/74 (BP Site: Left Arm) Pulse 83 Resp 20 Ht 5' 7 (1.702 m) Wt 204 lb (92.5 kg) SpO2 97% BMI 31.95 kg/m? . There is no JVD. No cervical or supraclavicular adenopathy is palpated. The chest is symmetrical without deformity. Breath sounds are clear bilaterally. The cardiac rhythm is regular. There is a 2/6 diastolic murmur and . The carotid, subclavian, and radial pulses are 2+ and equal bilaterally. The abdomen is soft and non-tender. There are no abdominal masses. There is no hepatojugular reflux. There is no pretibial edema. There is no clubbing or cyanosis. In summary, Ivory Iyer is a 58 year old woman with an aortic root and ascending aortic aneurysm and 3+ AI. SHe is experiencing new onset exertional symptoms. I do think that her symptoms are due to the AI. I think she is a good candidate for valve sparing root replacement. The size of the ascending aorta is certainly greater than 4.2 cm and I would estimate it at around 5+ based on the cath and echo; CT chest is now ordered. I will refer her to Dr. Nito Montes for consideration for valve sparing root replacement. Niall Lou MD [facility] Vital Signs Date Time Vital Sign Value Performing Clinician Faci lity 06-02-2023 08:10-0400 Body temperature 99.19 [degF] Juan Athy PA-C Work Phone: [facility] 06-02-2023 08:10-0400 Body weight 91.17 kg Juan Athy PA-C Work Phone: [facility] 06-02-2023 08:10-0400 Diastolic blood pressure 80 mm[Hg] Juan Athy PA-C Work Phone: [facility] 06-02-2023 08:10-0400 Heart rate 82 /min Juan Athy PA-C Work Phone: [facility] 06-02-2023 08:10-0400 Respiratory rate 16 /min Juan Athy PA-C Work Phone: [facility] 06-02-2023 08:10-0400 SaO2% (BldA) [Mass fraction] 97 % Juan Athy PA-C Work Phone: [facility] 06-02-2023 08:10-0400 Systolic blood pressure 122 mm[Hg] Juan Athy PA-C Work Phone: [facility] 08-21-2022 13:37-0500 Body temperature 98.2 [degF] Leticia Pendlebury MANAGER POWER.NANOSCIENCE TECHNICIAN Work Phone: [facility] 08-21-2022 13:37-0500 Body weight 84.91 kg Leticia Pendlebury MANAGER POWER.NANOSCIENCE TECHNICIAN Work Phone: [facility] 08-21-2022 13:37-0500 Diastolic blood pressure 82 mm[Hg] Leticia Pendlebury MANAGER POWER.NANOSCIENCE TECHNICIAN Work Phone: [facility] 08-21-2022 13:37-0500 Heart rate 87 /min Leticia Pendlebury MANAGER POWER.NANOSCIENCE TECHNICIAN Work Phone: [facility] 08-21-2022 13:37-0500 Respiratory rate 20 /min Leticia Pendlebury MANAGER POWER.NANOSCIENCE TECHNICIAN Work Phone: [facility] 08-21-2022 13:37-0500 SaO2% (BldA) [Mass fraction] 98 % Leticia Pendlebury MANAGER POWER.NANOSCIENCE TECHNICIAN Work Phone: [facility] 08-21-2022 13:37-0500 Systolic blood pressure 148 mm[Hg] Leticia Almanza APRN.NANOSCIENCE TECHNICIAN Work Phone: [facility] Encounters Encounter Date Encounter Type Care Provider Facility Start: 06-02-2023 End: 06-02-[address] [facility] Facility:[facility] Start: 06-02-2023 End: 06-02-2023 Patient encounter procedure Juan Harris PA-C Work Phone: [facility] Comment on above: Viral URI (Primary D x) Start: 08-22-2022 Telephone encounter Miriam SNOW Work Phone: [facility] Comment on above: Results Start: 08-21-2022 End: 08-21-[address] [facility] Facility:[facility] Start: 08-21-2022 End: 08-21-2022 Office outpatient visit 25 minutes Leticia Almanza APRN.NANOSCIENCE TECHNICIAN Work Phone: [facility] Comment on above: Pharyngitis, unspeci fied etiology (Primary Dx); Viral illness Start: 11-08-2017 End: 11-08-2017 [facility] Facility:[facility] Start: 06-19-2017 End: 06-19-2017 [facility] Facility:[facility] Start: 06-18-2017 End: 06-19-2017 [facility] Facility:[facility] Procedures Date Procedure Procedure Detail Performing Clinician Start: 06-02-2023 STREP A MOLECULAR (POC) Juan Harris PA-C Work Phone: Start: 08-21-2022 STREP A MOLECULAR (POC) Leticia Almanza APRN.NANOSCIENCE TECHNICIAN Work Phone: Start: 01-16-2018 Lipid 1996 panel - S carlos or Plasma Juan Harris PA-C Work Phone: Start: 10-06-2016 Mammography Leticia manzano APRN.NANOSCIENCE TECHNICIAN Work Phone: Start: 10-11-2012 Colonoscopy Leticia manzano MANAGER POWER.NANOSCIENCE TECHNICIAN Work Phone: Plan of Treatment Date Care Activity Detail Author Start: 05-01-2025 Urine microalbumin profile DTaP,Tdap,Td Vaccine (5 - Td or Tdap) [facility] Start: 01-16-2023 Lipid 1996 panel - S carlos or Plasma Lipid Screening [facility] Start: 01-16-2023 LIPID SCREEN LIPID SCREEN [facility] Start: 10-11-2022 Colonoscopy COLONOSCOPY [facility] Start: 10-11-2022 COLORECTAL CANCER SCREENING COLORECTAL CANCER SCREENING [facility] Start: 08-21-2022 End: 09-04-2022 Influenza virus A and B RNA and SARS-CoV-2 (COVID-19) N gene panel - Respiratory specimen by HOMAR with probe detection [facility] Work Phone: Comment on above: Expected: 08/21/2022 , Expires: 09/04/2022 Start: 08-13-2022 DEPRESSION ASSESSMENT DEPRESSION ASS ESSMENT [facility] Start: 04-13-2022 Influenza vaccination INFLUENZA (#1) [facility] Start: 02-28-2022 COVID-19 VACCINE (4 - Booster for Pao series) COVID-19 VACCINE (4 - Booster for Pao series) [facility] Start: 02-13-2022 Urine microalbumin profile DTAP,TDAP,TD (2 - Td or Tdap) [facility] Start: 2018 RSV Vaccine (1 - 1-d ose 60+ series) RSV Vaccine (1 - 1-dose 60+ series) [facility] Start: 07-23-2018 DIABETES SCREEN DIABETES SCREEN [facility] Start: 07-23-2018 Diabetes Screening Diabetes Screenin g [facility] Start: 10-06-2017 Mammography [facility] Start: 09-25-2017 HPV TESTING HPV TESTING [facility] Start: 09-25-2017 PAP TESTING PAP TESTING [facility] Start: 2008 SHINGRIX VACCINE (1 of 2) SHINGRIX VACCINE (1 of 2) [facility] Start: 2003 COLOGUARD (FIT-DNA) COLOGUARD (FIT-D NA) [facility] Start: [address] COLONOGRAPHY [facility] Start: 2003 FECAL OCCULT BLOOD FECAL OCCULT BLOO D [facility] Start: 2003 SIGMOIDOSCOPY SIGMOIDOSCOPY [facility] Start: 1976 ANNUAL PCP TEAM MECHANICAL INTERN VICKI DISEASE VISIT ANNUAL PCP TEAM CHRONIC DISEASE VISIT [facility] Start: 1976 BP CONTROLLED (<130/80) BP CONTROLLE D (<130/80) [facility] Start: 1976 HIV SCREENING HIV SCREENING [facility] COVID & INFLUENZA A/ B & RSV NAAT, ROUTINE COVID & INFLUENZA A/B & RSV NAAT, ROUTINE Microbiology Routine Viral URI Ordered: 06/02/2023 [facility] Work Phone: Comment on above: Ordered: 06/02/2023 ROUTINE FLU A/B + RSV ROUTINE FL U A/B + RSV Lab Routine Viral URI Ordered: 06/02/2023 [facility] Work Phone: Comment on above: Ordered: 06/02/2023 SARS-CoV-2 (COVID-19 ) RNA [Presence] in Respiratory specimen by HOMAR with probe detection COVID NAAT, UPPER RESPIRATORY, ROUTINE Microbiology Routine Viral URI Ordered: 06/02/2023 [facility] Work Phone: Comment on above: Ordered: 06/02/2023 Immunizations Immunization Date Immunization Notes Care Provider [facility] 06-16-2019 influenza, injectabl e, quadrivalent, contains preservative Leticia Pendlebury MANAGER POWER.NANOSCIENCE TECHNICIAN Work Phone: [facility] 02-14-2012 tetanus toxoid, redu sixto diphtheria toxoid, and acellular pertussis vaccine, adsorbed Leticia Pendlebury MANAGER POWER.NANOSCIENCE TECHNICIAN Work Phone: [facility] Payers Date Payer Category Payer Private Health Insurance 2017 Private Health Insurance [id number] Social History Date Type Detail Facility Start: 08-21-2022 Tobacco smoking stat us NHIS Ex-smoker [facility] End: 08-13-2011 History of tobacco use Current smoker [facility] End: 08-13-2011 History of tobacco use Cigarette Smoker [facility] Start: 07-18-2020 End: 08-21-2022 Cigarettes smoked current (pack per day) - Reported 0.5 [facility] Start: 08-21-2022 Tobacco use and exposure Smoke less tobacco non-user [facility] Start: 08-21-2022 End: 06-02-2023 Alcohol intake Ex-drinker (finding) [facility] Start: 1960 Sex Assigned At Not on file [facility] Start: 07-18-2020 End: 06-02-2023 Tobacco use panel [facility] National Score (1-10 0), lower number is lower risk Not on file [facility] Start: 07-31-2019 Gender identity Identifies as female gender (finding) [facility] Start: 07-31-2019 Sexual orientation Heterosexual (fin ding) [facility] Progress note 06-02-2023 Note Date & Type Note Facility 06-02-2023 Note HNO ID: [id number] Author: Juan Harris PA-C Service: ? Author Type: Physician Skidder Loader Type: Progress Notes Filed: 06/02/2023 9:03 AM Note Text: This note was created using Recommindriter. Subjective Ivory Iyer is a 62 year [...] QT interval chronic SBO (small bowel obstruction) ([facility]LY [facility]) 02/10/2011 Current Outpatient Medications Medication Sig Dispense [...] rectal polyp ECHO TRANSESOPHAG CONGEN PROBE [facility] IMGNG IANDR 02/10/2019 [facility] by Jimi Yi MD LIG/TRNSXJ FLP [...] ear normal. Nose: Congestion present. Mouth/Throat: Lips: [place]. Mouth: Mucous membranes are moist. Pharynx: Pharyngeal [...] ROUTINE - ROUTINE FLU A/B + RSV Juan Harris PA-C [facility] [place] [facility] History of Present illness Narrative 06-02-2023 Juan Harris PA-C - 06/02/2023 8:55 AM EDT Note Date & Type Note Facility 06-02-2023 History of Presen t illness Narrative This note was created using [employer]. Subjective Ivory Iyer is a 62 year [...] QT interval chronic SBO (small bowel obstruction) ([facility]) 02/10/2011 Current Outpatient Medications Medication Sig Dispense [...] rectal polyp ECHO TRANSESOPHAG CONGEN PROBE [facility] IMGNG I&R 02/10/2019 [facility] by Jimi Yi MD LIG/TRNSXJ FLP [...] ear normal. Nose: Congestion present. Mouth/Throat: Lips: [place]. Mouth: Mucous membranes are moist. Pharynx: Pharyngeal [...] ROUTINE - ROUTINE FLU A/B + RSV Juan Harris PA-C documented in this encounter [facility] Note 08-22-2022 Telephone Encounter - Jeffery Weller LPN - 08/22/2022 11:34 AM ESTTelephone Encounter - Mallory Casillas LPN - 08/22/2022 8:06 AM EST Note Date & Type Note Facility 08-22-2022 Miscellaneous Notes Formattin g of this note might be different from the original. Phone call placed no answer unable to leave a message, mailbox reported as full, [employer] logon 08/21/2022 results viewed. Jeffery Weller LPN Unable to reach patient and mailbox is full-try later.Mallory Casillas LPN Please let patient know negative for covid and flu. documented in this encounter [facility] Influenza virus A and B RNA and SARS-CoV-2 (COVID-19) N gene panel HOMAR+probe (Resp) 08-21-2022 Note Date & Type Note Facility 08-21-2022 Influenza virus A and B RNA and SARS-CoV-2 (COVID-19) N gene panel HOMAR+probe (Resp) COVID 19 RESULT: SARS-CoV-2 (Agent of COVID-19) Not Detected by RT-PCR or equivalent method. This test was developed and its performance characteristics determined by [facility]'s [facility] [place]. This test has been authorized by FDA under an Emergency Use Authorization (EUA). This test has been validated in accordance with the FDA's Guidance Document Policy for Diagnostics Testing in Laboratories Certified to Perform High Complexity Testing under CLIA prior to Emergency use Authorization for Coronavirus Disease 2019 during the Public Health Emergency issued on October 11, 2019. Test performed by [facility] [place] [facility], [facility] [place], [address] [place] [address]. INFLUENZA A PCR: Negative for Influenza A by RT-PCR INFLUENZA B PCR: Negative for Influenza B by RT-PCR [facility] [place] [facility] Comment on above: Performed By: #### [id number] #### [facility] CLIA [id number] [address] [place] [address] [place] Progress note 08-21-2022 Note Date & Type Note Facility 08-21-2022 Note HNO ID: [id number] Author: Leticia Almanza APRN.NANOSCIENCE TECHNICIAN Service: ? Author Type: Nurse Practitioner Type: [...] rectal polyp ECHO TRANSESOPHAG CONGEN PROBE [facility] IMGNG IANDR 02/10/2019 [facility] by Jimi Yi MD LIG/TRNSXJ FLP [...] ear normal. Nose: Congestion present. Mouth/Throat: Lips: [place]. Mouth: Mucous membranes are moist. Pharynx: Oropharynx [...] no guarding o (more content not included)... [facility] [place] [facility] Instructions 08-21-2022 Patient Instructions Note Date & Type Note Facility 08-21-2022 Instructions Leticia Almanza APRN.NANOSCIENCE TECHNICIAN - 08/21/2022 1:52 PM EST How to [...] concerning to you. documented in this encounter [facility] History of Present illness Narrative 08-21-2022 Leticia Almanza APRN.KADE - 08/21/2022 1:40 PM EST Note Date [...] rectal polyp ECHO TRANSESOPHAG CONGEN PROBE [facility] IMGNG I&R 02/10/2019 [facility] by Jimi Yi MD LIG/TRNSXJ FLP [...] Pack years: 6.00 Types: Cigarettes Quit date: 2012 Years since quittin.0 Smokeless tobacco: Never Vaping [...] ear normal. Nose: Congestion present. Mouth/Throat: Lips: [place]. Mouth: Mucous membranes are moist. Pharynx: Oropharynx [...] of care. This note was generated using Cashkaro software. It may contain errors in wording, punctuation, or spelling. Leticia Almanza APRN.KADE documented in this encounter [facility] Evaluation note Note Date & Type Note Facility Evaluation note Diagnosis Pharyngitis, unspecified etiology- Primary Viral illness Unspecified viral infection, in conditions classified elsewhere and of unspecified site documented in this encounter [facility] Evaluation note Note Date & Type Note Facility Evaluation note Diagnosis Viral URI- Primary Acute upper respiratory infections of unspecified site documented in this encounter [facility] Summary Purpose Family History No Family History Records FoundNo Family History Records FoundNo Family History Records Found Advance Directives No Advanced Directives Records FoundDocuments on File Type Date Recorded Patient Manager Testing Expl anation Advance Directive(s) 09/29/2019 8:57 AM Advance Directive(s) 09/29/2019 8:59 AM Documents on File Type Date Recorded Patient Manager Testing Expl anation Advance Directive(s) 09/29/2019 8:59 AM Advance Directive(s) 09/29/2019 8:57 AM Health Concerns Infection Onset Date Last Indicated Resolved Time COVID-19 Rule-Out 08/21/2022 08/21/2022 Infection Onset Date Last Indicated Resolved Time COVID-19 Rule-Out 08/21/2022 08/21/2022 08/22/2022 12:09 AM EST Additional Source Comments INFORMATION SOURCE (unrecogn ized section and content) DATE CREATED AUTHOR 01/31/2018 [facility] DATE CREATED AUTHOR AUTHOR'S ORGANIZ ATION 04/02/2019 [facility] DATE CREATED AUTHOR AUTHOR'S ORGANIZ ATION 06/03/2023 [facility] [place] [facility] Source Comments (unrecognize d section and content) In the event this informatio n is protected by the Federal Confidentiality of Alcohol and Drug Abuse Patient Records regulations: The Federal rules restrict any use of the information to criminally investigate or prosecute any alcohol or drug abuse patient.[facility] the event this information is protected by the Federal Confidentiality of Alcohol and Drug Abuse Patient Records regulations: The Federal rules restrict any use of the information to criminally investigate or prosecute any alcohol or drug abuse patient.[facility] the event this information is protected by the Federal Confidentiality of Alcohol and Drug Abuse Patient Records regulations: The Federal rules restrict any use of the information to criminally investigate or prosecute any alcohol or drug abuse patient.[facility] Reason for Visit (unrecogniz ed section and content) Reason Comments Cough ST, intermittent low fevers, fatigue x3 days Reason Comments Results Reason Comments Nasal Congestion sore throat and feve r x 2 days Care Teams (unrecognized sec tion and content) Tutor Coordinator Relationship Specialty Start Date End Date Nito Villalobos MD [address] [place], [place] [id number] PCP - General Family Medicine 11/22/20 Jimi Yi MD Referring Cardiology 02/28/19 Tutor Coordinator Relationship Specialty Start Date End Date Nito Villalobos MD [address] [facility], [place] [id number] PCP - General Family Medicine 11/22/20 Jimi Yi MD Referring Cardiology 02/28/19 Tutor Coordinator Relationship Specialty Start Date End Date Nito Villalobos MD [address] [place] [address], [place] [id number] PCP - General Family Medicine 11/22/20 Jimi [...] BE BASED ON THE PRIMARY CLINICAL RECORDS. [facility] [employer] [facility]. provides no warranty or guarantee of the accuracy or completeness of information in this document.
== END | disposition home or self-care (01) ==
LOC: US 11:23
PROVIDERS: PCP Family Medicine; Referring Provider Advanced Practice Midwife; Visit Provider Advanced Practice Midwife
DX: R10.2 Pelvic and perineal pain (principal)
CPT/HCPCS: 76830

== ENCOUNTER 2024-06-24 18:25 | Emergency (ER) | payer MEDICARE, OTHER, SELFPAY ==
[2024-06-24 18:26] VITALS: BP 136/86; PULSE 87; RESP 16; TEMP 36.5; O2SAT 99; BMI 29.9
--- NOTE | 2024-06-24 19:35 | ED.VIS.GI ---
HPI HPI - GI History of Present Illness Chief Complaint: Diarrhea Informant: patient and spouse/S.O. Narrative Narrative: 53-year-old female has been having watery nonbloody diarrhea about 10 times a day for the past 5 days along with right upper abdominal discomfort that feels more like pressure than pain. She denies any fevers or chills or nausea or vomiting. No suspicious food intake. States she was in [place] recently but she arrived home 1 month ago and does not think that is necessarily related. No recent antibiotics. She is concerned because the last time she had something like this, she had a CT of the abdomen/pelvis that showed no acute abnormality but her surgeon Dr. Shrestha then looked at it and told her she had microperforations and needed to be admitted to the hospital which she was subsequently. She has also had a bowel obstruction in the past, but she had an adhesiolysis rather than bowel resection for it. She had a remote bowel resection when she was a child due to things being twisted. No other resections. [facility] Medical History History of diverticulitis of colon Back pain Scoliosis of lumbar spine Non-cardiac chest pain Atrophic vaginitis Acute stress reaction Segmental and somatic dysfunction of pelvic region Segmental and somatic dysfunction of lumbar region Obesity Hyperlipidemia Lichen sclerosus et atrophicus Palpitations Hypertension Diverticulitis, colon Cellulitis, perineum AVD (aortic valve disease) Aortic root dilatation Wears glasses Post-menopausal Anxiety History of diverticulitis Former smoker History of echocardiogram History of transesophageal echocardiography (ALONDRA) Cardiology follow-up encounter Hx of small bowel obstruction Failure of outpatient treatment Acute diverticulitis Essential hypertension Small bowel obstruction Fatigue Dyspnea on exertion Abnormal EKG Prolonged QT interval First degree AV block SBO (small bowel obstruction) Obesity Nonrheumatic aortic valve insufficiency Home Medications ?Medication ?Instructions ?Recorded ?Last Taken ?Type olmesartan 40 mg tablet 20 mg PO QHS bp 08/30/21 11/22/22 21:00 History potassium chloride 20 mEq 20 meq PO DAILY potassium 11/23/22 11/22/22 21:00 History tablet,extended supplement release(part/cryst) (Klor-Con M) iodine 150 mcg tablet 150 mcg PO DAILY supplement 06/20/23 Unknown History multivitamin (Daily Multi-Vitamin 1 tab PO DAILY vitamin 06/20/23 Unknown History tablet) cholecalciferol (vitamin D3) 1 tab PO DAILY vitamin 06/21/23 Unknown History coenzyme Q10 10 mg capsule mg PO supplement 06/21/23 Unknown History vitamin B complex 1 tab PO DAILY vitamin 06/21/23 Unknown History clobetasol 0.05 % topical ointment 1 applic topical [facility] #30 01/09/24 Unknown Rx grams omega 1-mxj-ocj-fish oil 300 1 cap PO DAILY 02/25/24 Unknown History mg-1,000 mg capsule (Fish Oil) ciprofloxacin HCl 500 mg tablet 500 mg PO BID #6 TABLETS 06/24/24 Unknown Rx Allergy/AdvReac Type Severity Reaction Status Date / Time hydrochlorothiazide AdvReac Severe SEVERE Verified 06/24/24 18:26 HYPOKALEMIA, hospitalized for it bee venom protein (honey bee) AdvReac Swelling Verified 06/24/24 18:26 codeine AdvReac Other Verified 06/24/24 18:26 Family History Uncle Diabetes Aunt Diabetes Surgical History History of hysterectomy, supracervical History of resection of small bowel History of cardiac catheterization History of right and left heart catheterization (02/10/19) History of bowel resection H/O total hysterectomy History of appendectomy Social History Smoking Status: Former smoker quit date: 08/13/12 pack-years: 10 alcohol intake: current details: social substance use type: does not use caffeine: Yes what type of physical activity do you participate in: bicycling and yoga frequency: 5-6 times per week seatbelt use: always do you feel safe at home: Yes 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 ED Constitutional Constitutional ED: Denies chills or fever(s) Eyes Eyes: Denies change in vision or diplopia ENT ENT ED: Denies rhinorrhea or sore throat Cardiovascular Cardiovascular: Denies chest pain or palpitations Respiratory/Chest Respiratory/Chest: Denies cough or dyspnea Gastrointestinal Gastrointestinal: Reports abdominal pain and diarrhea; Denies melena, nausea, rectal bleeding or vomiting Genitourinary Genitourinary ED: Denies dysuria or hematuria Musculoskeletal Musculoskeletal: Denies back pain or neck pain Integumentary Denies abscess or rash Neurologic Neurologic: Denies headache(s), paresthesias or weakness Psychiatric Psychiatric: Denies anxiety or suicidal thoughts EXAM Physical Exam Const Vital Signs: 06/24/24 18:26 06/24/24 20:40 Temperature 97.7 F L Temperature Source Oral Pulse Rate 87 69 Respiratory Rate 16 16 Blood Pressure 136/86 H 136/89 H Blood Pressure Mean 102 104 Pulse Ox 99 98 Oxygen Delivery Method Room Air Room Air Positive well nourished and well developed General Appearance ED: well developed and NAD HEENT Reports moist mucous membranes normocephalic and atraumatic Eyes PERRL and EOMs intact bilaterally Neck full ROM and supple Resp normal respiratory effort and clear to auscultation bilaterally Cardio regular rate, regular rhythm and no murmurs GI non-distended GI Narrative: Tender throughout upper abdomen worse in the epigastrium, some mild voluntary guarding no rebound tenderness no other areas of tenderness. No pulsatile mass. Auscultation: normoactive bowel sounds Palpation: soft Back/Spine no CVA tenderness General Back: other FROM Extremity normal to inspection General Extremety ED: Negative for edema, pulses abnormal or tenderness General Extremity: Negative for edema or pulses abnormal Neuro oriented x3, CN's II-XII intact bilaterally and no sensory deficits noted Sensorium / Orientation: awake and alert Motor Exam: strength 5/5 throughout Skin no rashes or lesions noted and no wounds MDM MDM MDM Narrative Medical decision making narrative: Obtain labs and a CT, considering possibilities of viral or bacterial infection versus colitis versus diverticulitis versus ischemic colitis although she is not having bleeding so that is less likely. I reviewed her labs, she has a normal lactate, normal liver and lipase, and I reviewed the CT images and the report which I agree with. Basically is consistent with enteritis with no signs of inflammation or perforation. 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 She did provide a little diarrhea here in ER but not enough for us to run all the testing that we wanted, and she did not want to wait to provide more. She does have a positive fecal white blood cell smear. She is stable for discharge home and hydrated. I think reasonable to treat her with a 3-day course of Cipro empirically, however I advised her to get the most information out of this that after she collects a home specimen and turns it into the lab and she is comfortable with that plan. She has a follow-up appointment with her doctor in 2 days. Lab Data Attestation: I reviewed the patient's lab results. Labs: Laboratory Results - last 24 hr 06/24/24 06/24/24 19:10 19:47 WBC 8.9 RBC 4.89 Hgb 14.4 Hct 43.6 MCV 89.2 MCH 29.4 MCHC 33.0 RDW Std Deviation 43.1 RDW Coeff of Bhavya 13.2 Plt Count 429 MPV 9.3 Immature Gran % (Auto) 0.600 Neut % (Auto) 46.1 L Lymph % (Auto) 42.6 H [place] % (Auto) 9.1 Eos % (Auto) 1.2 Baso % (Auto) 0.4 Absolute Neuts (auto) 4.1 Absolute Lymphs (auto) 3.80 Nucleated RBC % 0 Sodium 139 Potassium 3.6 Chloride 107 Carbon Dioxide 26.0 Anion Gap 6 BUN 18 Creatinine 0.88 Estim Creat Clear Calc 72.06 Est GFR (MDRD) Af Amer 82 Est GFR (MDRD) Non-Af 68 BUN/Creatinine Ratio 20.4 H Glucose 101 Lactic Acid 1.1 Calcium 9.4 Total Bilirubin 0.50 AST 17 ALT 30 Alkaline Phosphatase 95 Total Protein 8.0 Albumin 3.9 Globulin 4.1 Albumin/Globulin Ratio 1.0 Lipase 33 Radiography Diagnostic Testing: Clinical Impression(s) from Imaging Studies Abdomen/Pelvis CT 06/24/24 20:25 IMPRESSION: Findings which may be consistent with nonspecific enteritis Malrotation of the proximal small bowel with mild dilatation possibly representing ileus without definitive evidence for point of obstruction. Recommend clinical correlation and follow-up studies if clinically warranted Diverticular disease of the colon without evidence for acute diverticulitis Electronically Signed: Jeovanny Jacques MD at 21:13 EST , Discharge Plan Triage Chief Complaint: Diarrhea ED Provider: Johann Noble Dx/Rx/DC Orders Clinical Impression: Acute diarrhea, Acute upper abdominal pain Instructions: ED Diarrhea, Unknown Cause Prescriptions: New ciprofloxacin HCl 500 mg tablet 500 mg PO BID Qty: 6 0RF No Action omega 3-cxk-nvv-fish oil [Fish Oil] 300-1,000 mg capsule 1 cap PO DAILY potassium chloride [Klor-Con M20] 20 mEq tablet,ER particles/crystals 20 meq PO DAILY iodine 150 mcg tablet 150 mcg PO DAILY multivitamin [Daily Multi-Vitamin] Tablet 1 tab PO DAILY cholecalciferol (vitamin D3) [Vitamin D3] 1 tab PO DAILY vitamin B complex Tablet 1 tab PO DAILY coenzyme Q10 10 mg capsule PO olmesartan 40 mg tablet 20 mg PO QHS clobetasol 0.05 % ointment 1 applic TOPICAL PRN Qty: 30 4RF Primary Care Provider: Gavino Melendez Referrals: Gavino Melendez MD [Primary Care Provider] - Keep Deuce appointment Activity Restrictions/Additional Instructions: For best results information, do not start antibiotic until after you have provided the specimen that will be run by the lab. Print Language: Algerian Disposition Disposition: Home, Self Care
[2024-06-24 19:50] LABS: Absolute Neutrophil Count 4.1 X10^3/uL (2.0-7.7); Basophil# 0.04 X10^3/uL; Basophil% 0.4 % (0-1); Eosinophil# 0.11 X10^3/uL; Eosinophils% 1.2 % (0-5); Hematocrit 43.6 % (37-47); Hemoglobin 14.4 g/dL (12.0-15.0); Lymphocyte % 42.6 % (19-41); Mean Corpuscular Hgb 29.4 pg (27.0-32.0); Mean Corpuscular Volume 89.2 fL (81-99); Mean Platelet Vol. 9.3 fl (6.2-12.0); Monocyte# 0.81 X10^3/uL; Monocyte% 9.1 % (0-10); NRBC Flagged by Analyzer 0 % (0-5); Neutrophil # 4.12 X10^3/uL (2.7-7.7); Neutrophil % 46.1 % (47-70); Platelet Count 429 K/mm3 (150-450); RBC Distribution Width CV 13.2 % (11.6-14.6); RBC Distribution Width SD 43.1 fl (35.1-43.9); Red Blood Count 4.89 M/mm3 (4.2-5.4); White Blood Count 8.9 K/mm3 (4.4-11.0)
[2024-06-24] MEDS: 0.9% Normal Saline (1000mL) 1,000 ML 999 ML IV (20:01)
[2024-06-24] MEDS: Ondansetron 4 MG/2 ML Vial IV (20:07)
[2024-06-24 20:10] LABS: AST(SGOT) 17 U/L (15-37); Alanine Aminotransfer ALT/SGPT 30 U/L (13-56); Albumin, Serum 3.9 g/dL (3.2-5.0); Alkaline Phosphatase 95 U/L (45-117); Anion Gap 6 (5-15); BUN 18 mg/dL (7-18); BUN/Creat Ratio 20.4 RATIO (10-20); Calcium,Total 9.4 mg/dL (8.5-10.1); Chloride 107 mmol/L (98-107); Creatinine, Serum 0.88 mg/dL (0.55-1.02); EST Glomerular Filtration Rate 68 mL/min (>60); Est Glom Filt Rate - Afr Amer 82 mL/min (>60); Estimated Creatinine Clearance 72.06 ml/min; Globulin 4.1 g/dL (2.2-4.2); Glucose 101 mg/dL (74-106); Lipase 33 U/L (13-75); Potassium 3.6 mmol/L (3.5-5.1); Sodium Level 139 mmol/L (136-145)
[2024-06-24 20:24] LABS: Lactic Acid 1.1 mmol/L (0.4-1.9)
--- NOTE | 2024-06-24 20:25 | CT_ITS ---
STUDY: CT ABDOMEN AND PELVIS WITH CONTRAST REASON FOR EXAM: Female, 63 years old. Upper abdominal pain, diarrhea RADIATION DOSAGE (If Supplied By Facility): CTDIvol = ( 14.88 ) mGy, DLP = ( 1070.48 ) mGycm TECHNIQUE: Transaxial images were obtained from the dome of the diaphragm to the symphysis pubis without oral contrast. IV 100mL Isovue-370 was administered. Sagittal and coronal images were reconstructed. Individualized dose optimization techniques were used for this CT. COMPARISON: June 20, 2023 FINDINGS: The visualized lung bases are unremarkable. The visualized portions of the heart are within normal limits. Normal liver. Normal gallbladder and extrahepatic biliary system. Normal spleen. Normal pancreas. Normal bilateral adrenal glands. Normal right kidney. Normal left kidney. Normal visualized stomach. There is malrotation of the small bowel with transverse portion of the duodenum and jejunum in the right midabdomen. There is mild distention of the proximal loops with thickening of the folds which may be consistent with nonspecific enteritis. There is no definitive evidence for small bowel obstruction. Diverticular changes of the colon without evidence for acute diverticulitis.. No evidence for acute appendicitis. Mild atherosclerotic change of the aorta without evidence for aneurysm. Normal inferior vena cava. Normal retroperitoneum. Normal urinary bladder. Uterus not visualized status post hysterectomy Normal abdominal wall. Normal osseous structures. CT/Abdomen/Pelvis W IV Cont ONLY IMPRESSION: Findings which may be consistent with nonspecific enteritis Malrotation of the proximal small bowel with mild dilatation possibly representing ileus without definitive evidence for point of obstruction. Recommend clinical correlation and follow-up studies if clinically warranted Diverticular disease of the colon without evidence for acute diverticulitis Electronically Signed: Jeovanny Jacques MD at 21:13 EST ,
[2024-06-24 20:40] VITALS: BP 136/89; PULSE 69; RESP 16; O2SAT 98
== END 2024-06-24 22:31 | disposition home or self-care (01) ==
PROVIDERS: Emergency Provider Emergency Medicine; PCP Family Medicine; Visit Provider Emergency Medicine
DX: R19.7 Diarrhea, unspecified (principal); I10 Essential (primary) hypertension; E78.5 Hyperlipidemia, unspecified; Z87.891 Personal history of nicotine dependence; R10.11 Right upper quadrant pain; Z79.899 Other long term (current) drug therapy; Z90.710 Acquired absence of both cervix and uterus; Z90.49 Acquired absence of other specified parts of digestive tract
CPT/HCPCS: 74177; 80053; 83605; 83630; 83690; 85025; 87177; 87209; 87493; 96361; 96374; 99283; J7030; Q9967; A4216; J2405

== ENCOUNTER → 2024-06-25 | Outpatient (CLI) | payer MEDICARE, OTHER, SELFPAY | END | disposition home or self-care (01) | PROVIDERS: PCP Family Medicine; Referring Provider Emergency Medicine; Visit Provider Emergency Medicine | DX: R19.7 Diarrhea, unspecified (principal) ==

== ENCOUNTER 2024-08-14 04:07 | Inpatient (IN) | payer MEDICARE, OTHER, SELFPAY ==
[2024-08-14] VITALS (10 sets, daily range): BP systolic 110–210; BP diastolic 59–84; PULSE 55–74; RESP 16–20; TEMP 36.6–37.2; O2SAT 93–100; BMI 30.5
--- NOTE | 2024-08-14 04:21 | CT_ITS ---
STUDY: CT ABDOMEN AND PELVIS WITH CONTRAST - URINARY TRACT REASON FOR EXAM: Female, 63 years old. Diffuse abdominal pain RADIATION DOSAGE (If Supplied By Facility): CTDIvol = ( 21.85 ) mGy, DLP = ( 1181.66 ) mGycm TECHNIQUE: IV 100mL Isovue-370 was administered. Transaxial images were obtained from the dome of the diaphragm to the symphysis pubis in the arterial, nephrographic and excretory phases. Multiplanar coronal and sagittal images were reformatted. The protocol utilizes one or more of the following dose reduction techniques: automated exposure control, adjustment of mA and/or kV according to patient size,and/or use of iterative reconstruction technique. COMPARISON: No relevant prior comparison study available FINDINGS: The visualized lung bases are unremarkable. The visualized portions of the heart are within normal limits. Normal liver. Normal gallbladder and extrahepatic biliary system. Normal spleen. Normal pancreas. Normal bilateral adrenal glands. Normal visualized stomach. There are dilated loops of the small intestine with a non-distended colon consistent with a small bowel obstruction. There are multiple colonic diverticula consistent with diverticulosis.. Normal abdominal aorta. No retroperitoneal adenopathy. Normal right kidney. Normal left kidney. Normal urinary bladder. Normal abdominal wall. Normal osseous structures. CT/Abdomen/Pelvis W IV Cont ONLY IMPRESSION: Small bowel obstruction the distal ileum. Electronically Signed: Sean Adorno MD at 6:59 EST ,
[2024-08-14] MEDS: HYDROmorphone 0.5 MG/0.5 ML SYRINGE IV ×5 (04:41→23:04)
[2024-08-14] MEDS: Ondansetron 4 MG/2 ML Vial IV ×3 (04:41→17:52)
[2024-08-14 04:47] LABS: Absolute Lymphocyte Count 3.29 X10^3/uL (0.83-4.51); Absolute Neutrophil Count 6.5 X10^3/uL (2.0-7.7); Basophil# 0.08 X10^3/uL; Basophil% 0.7 % (0-1); Eosinophil# 0.15 X10^3/uL; Eosinophils% 1.4 % (0-5); Hematocrit 44.6 % (37-47); Hemoglobin 14.6 g/dL (12.0-15.0); Lymphocyte # 3.29 X10^3/ul (0.83-4.51); Lymphocyte % 30.3 % (19-41); Mean Corp Hgb Conc 32.7 g/dL (32-36); Mean Corpuscular Hgb 29.8 pg (27.0-32.0); Mean Platelet Vol. 9.4 fl (6.2-12.0); Monocyte# 0.86 X10^3/uL; Monocyte% 7.9 % (0-10); NRBC Flagged by Analyzer 0 % (0-5); Neutrophil # 6.45 X10^3/uL (2.7-7.7); Neutrophil % 59.3 % (47-70); Platelet Count 359 K/mm3 (150-450); RBC Distribution Width CV 13.9 % (11.6-14.6); RBC Distribution Width SD 46.5 fl (35.1-43.9); White Blood Count 10.9 K/mm3 (4.4-11.0)
[2024-08-14 05:09] LABS: Mucous, Urine 0 SEEN /hpf (<or=2+)
[2024-08-14 05:10] LABS: Color, Urine Yellow (Yellow); Glucose, Dipstick Normal (Normal); Ketone-Dipstick Negative (Negative); Leukocyte Esterase-Dipstick 25 /ul (Negative); Nitrite-Dipstick Negative (Negative); Occult Blood-Urine 25 /ul (Negative); Protein-Dipstick 15 mg/dl (Negative); Specific Gravity, Urine 1.025 (1.002-1.030); Urine Bilirubin Dipstick Negative (Negative); Urine Clarity Sl. Cloudy (Clear); Urine Urobilinogen Normal (Normal)
--- NOTE | 2024-08-14 05:12 | EDS_ITS ---
HPI History of Present Illness Chief Complaint: Abd Pain Narrative Narrative: Chief complaint and HPI: Abdominal pain. 63-year-old female with past medical history of bowel surgery, HTN, HLD presents for evaluation of diffuse abdominal pain. Onset of symptom around 8 PM. Patient states around 8 PM this evening she developed abdominal pain with associated nausea. She denies any fever, chills, chest pain, shortness of breath, vomiting, dysuria, hematuria. Patient follows with Dr. Ceballos for chronic GI problems. Denies any diarrhea or constipation. Review of systems: See HPI Medications: As listed on the chart Allergies: As listed on the chart PFSH: Per chart Vital signs: As listed on the chart. Reviewed. Physical exam: Gen: A&O x3, NAD Head: Normocephalic, atraumatic Eyes: No sclera icterus, conjunctiva clear ENT: Moist mucous membranes Neck: Trachea midline, No JVD CV: RRR, no murmurs, no peripheral edema Resp: Lungs CTA BL, no w/r/c GI: Abd soft, non-distended, mild tenderness to palpation diffusely, + positive voluntary guarding, no rebound or rigidity : No CVA tenderness Musc: Full ROM, no deformity Skin: Warm, dry Neuro: Alert, oriented, grossly intact, sensation intact Psych: Cooperative, appropriate mood and affect [facility] Medical History History of diverticulitis of colon Back pain Scoliosis of lumbar spine Non-cardiac chest pain Atrophic vaginitis Acute stress reaction Segmental and somatic dysfunction of pelvic region Segmental and somatic dysfunction of lumbar region Obesity Hyperlipidemia Lichen sclerosus et atrophicus Palpitations Hypertension Diverticulitis, colon Cellulitis, perineum AVD (aortic valve disease) Aortic root dilatation Wears glasses Post-menopausal Anxiety History of diverticulitis Former smoker History of echocardiogram History of transesophageal echocardiography (ALONDRA) Cardiology follow-up encounter Hx of small bowel obstruction Failure of outpatient treatment Acute diverticulitis Essential hypertension Small bowel obstruction Fatigue Dyspnea on exertion Abnormal EKG Prolonged QT interval First degree AV block SBO (small bowel obstruction) Obesity Nonrheumatic aortic valve insufficiency Home Medications ?Medication ?Instructions ?Recorded ?Last Taken ?Type olmesartan 40 mg tablet 20 mg PO QHS bp 08/30/21 11/22/22 21:00 History potassium chloride 20 mEq 20 meq PO DAILY potassium 11/23/22 11/22/22 21:00 History tablet,extended supplement release(part/cryst) (Klor-Con M) iodine 150 mcg tablet 150 mcg PO DAILY supplement 06/20/23 Unknown History multivitamin (Daily Multi-Vitamin 1 tab PO DAILY vitamin 06/20/23 Unknown History tablet) cholecalciferol (vitamin D3) 1 tab PO DAILY vitamin 06/21/23 Unknown History coenzyme Q10 10 mg capsule mg PO supplement 06/21/23 Unknown History vitamin B complex 1 tab PO DAILY vitamin 06/21/23 Unknown History clobetasol 0.05 % topical ointment 1 applic topical [facility] #30 01/09/24 Unknown Rx grams omega 1-pcb-rof-fish oil 300 1 cap PO DAILY 02/25/24 Unknown History mg-1,000 mg capsule (Fish Oil) Allergy/AdvReac Type Severity Reaction Status Date / Time hydrochlorothiazide AdvReac Severe SEVERE Verified 08/14/24 04:07 HYPOKALEMIA, hospitalized for it bee venom protein (honey bee) AdvReac Swelling Verified 08/14/24 04:07 Family History Uncle Diabetes Aunt Diabetes Surgical History History of hysterectomy, supracervical History of resection of small bowel History of cardiac catheterization History of right and left heart catheterization (02/10/19) History of bowel resection H/O total hysterectomy History of appendectomy Social History Smoking Status: Former smoker quit date: 08/13/12 pack-years: 10 alcohol intake: current details: social substance use type: does not use caffeine: Yes what type of physical activity do you participate in: bicycling and yoga frequency: 5-6 times per week seatbelt use: always do you feel safe at home: Yes 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 Const Vital Signs: 08/14/24 04:07 08/14/24 04:12 08/14/24 05:26 Temperature 98 F Temperature Source Oral Pulse Rate 74 58 L Respiratory Rate 18 18 Blood Pressure 210/84 H 133/65 H Blood Pressure Mean 126 87 Pulse Ox 99 93 Oxygen Delivery Method Room Air Room Air 08/14/24 07:00 Temperature Temperature Source Pulse Rate 55 L Respiratory Rate 20 H Blood Pressure 110/70 Blood Pressure Mean 83 Pulse Ox 94 Oxygen Delivery Method Room Air MDM MDM MDM Narrative Medical decision making narrative: 63-year-old female with past medical history of bowel surgery, HTN, HLD presents for evaluation of diffuse abdominal pain. Differential diagnosis includes but is not limited to gastroenteritis, diverticulitis, colitis, pancreatitis, other intra-abdominal pathology, UTI. NS bolus, Dilaudid, Zofran ordered for symptoms. Laboratory workup ordered including CT abdomen pelvis. On chart review, patient's last colonoscopy was in 2022 and at that time she had diffuse diverticulosis. CBC without leukocytosis or anemia. UA negative for UTI. CMP shows hyperkalemia of 5.2 although per laboratory comment patient has moderate hemolysis which is likely causing a false hyperkalemia. No JAZMINE. AST mildly elevated at 40 but may be elevated due to hemolysis. Lipase unremark able. CT abdomen pelvis shows small bowel obstruction of the distal ileum. Diverticulosis without diverticulitis. Patient will warrant admission for her small bowel obstruction. At this point in time patient does not have a significantly distended stomach and is not vomiting therefore NG not placed. Patient was updated of all the results and confirmed understanding of the plan. Patient was discussed with the medical service who accepted admission. Impression: 1. Small bowel obstruction 2. Hyperkalemia, suspect error from hemolysis Lab Data Labs: Laboratory Results - last 24 hr 08/14/24 08/14/24 08/14/24 04:40 05:03 05:32 WBC 10.9 RBC 4.90 Hgb 14.6 Hct 44.6 MCV 91.0 MCH 29.8 MCHC 32.7 RDW Std Deviation 46.5 H RDW Coeff of Bhavya 13.9 Plt Count 359 MPV 9.4 Immature Gran % (Auto) 0.400 Neut % (Auto) 59.3 Lymph % (Auto) 30.3 [place] % (Auto) 7.9 Eos % (Auto) 1.4 Baso % (Auto) 0.7 Absolute Neuts (auto) 6.5 Absolute Lymphs (auto) 3.29 Nucleated RBC % 0 Sodium Cancelled 139 Potassium Cancelled 5.2 H Chloride Cancelled 105 Carbon Dioxide Cancelled 26.0 Anion Gap Cancelled 8 BUN Cancelled 15 Creatinine Cancelled 0.95 Estim Creat Clear Calc Cancelled 67.44 Est GFR (MDRD) Af Amer Cancelled 76 Est GFR (MDRD) Non-Af Cancelled 63 BUN/Creatinine Ratio Cancelled 15.8 Glucose Cancelled 121 H Calcium Cancelled 8.8 Total Bilirubin Cancelled 0.50 AST Cancelled 40 H ALT Cancelled 33 Alkaline Phosphatase Cancelled 87 Total Protein Cancelled 7.5 Albumin Cancelled 3.5 Globulin Cancelled 4.0 Albumin/Globulin Ratio Cancelled 0.9 Lipase Cancelled 26 Urine Color Yellow Urine Clarity Sl. Cloudy Urine pH 6.0 Ur Specific [place] 1.025 Urine Protein 15 H Urine Glucose (UA) Normal Urine Ketones Negative Urine Occult Blood 25 H Urine Nitrite Negative Urine Bilirubin Negative Urine Urobilinogen Normal Ur Leukocyte Esterase 25 H Urine RBC 0-5 SEEN Urine WBC 0-5 SEEN Ur Squamous Epith Cells 0-5 SEEN Urine Bacteria RARE Urine Mucus 0 SEEN Radiography Diagnostic Testing: Clinical Impression(s) from Imaging Studies Abdomen/Pelvis CT 08/14/24 04:21 IMPRESSION: Small bowel obstruction the distal ileum. Electronically Signed: Sean Adorno MD at 6:59 EST , Discharge Plan Triage Chief Complaint: Abd Pain ED Provider: Ariel Melendez Dx/Rx/DC Orders Prescriptions: No Action omega 5-mig-lhj-fish oil [Fish Oil] 300-1,000 mg capsule 1 cap PO DAILY potassium chloride [Klor-Con M20] 20 mEq tablet,ER particles/crystals 20 meq PO DAILY iodine 150 mcg tablet 150 mcg PO DAILY multivitamin [Daily Multi-Vitamin] Tablet 1 tab PO DAILY cholecalciferol (vitamin D3) [Vitamin D3] 1 tab PO DAILY vitamin B complex Tablet 1 tab PO DAILY coenzyme Q10 10 mg capsule PO olmesartan 40 mg tablet 20 mg PO QHS clobetasol 0.05 % ointment 1 applic TOPICAL PRN Qty: 30 4RF Primary Care Provider: Gavino Melendez Referrals: Gavino Melendez MD [Primary Care Provider] - Print Language: Indonesian
[2024-08-14 05:25] LABS: Bacteria RARE /hpf (None Seen); Red Blood Cells-Urine 0-5 SEEN /hpf (0-5); Squamous Epithelial Cells - UA 0-5 SEEN /hpf (5-10); White Blood Cells 0-5 SEEN /hpf (0-5)
[2024-08-14 05:58] LABS: ALB/GLOB Ratio 0.9 RATIO (0.9-2.4); AST(SGOT) 40 U/L (15-37); Alanine Aminotransfer ALT/SGPT 33 U/L (13-56); Albumin, Serum 3.5 g/dL (3.2-5.0); Alkaline Phosphatase 87 U/L (45-117); Anion Gap 8 (5-15); BUN 15 mg/dL (7-18); BUN/Creat Ratio 15.8 RATIO (10-20); Calcium,Total 8.8 mg/dL (8.5-10.1); Chloride 105 mmol/L (98-107); Creatinine, Serum 0.95 mg/dL (0.55-1.02); EST Glomerular Filtration Rate 63 mL/min (>60); Est Glom Filt Rate - Afr Amer 76 mL/min (>60); Estimated Creatinine Clearance 67.44 ml/min; Glucose 121 mg/dL (74-106); Lipase 26 U/L (13-75); Potassium 5.2 mmol/L (3.5-5.1); Protein, Total 7.5 g/dL (6.4-8.2); Sodium Level 139 mmol/L (136-145)
--- NOTE | 2024-08-14 09:13 | PCM.HP.STD ---
HPI - General General Date of Admission: 08/14/24 HPI Narrative JASSON GRIMALDO, is a 63 F who presents to the hospital with abdominal pain and nausea that started last night around 8 PM. She has a history of small bowel obstructions given her previous abdominal surgery history, she had a volvulus as a child that had surgical repair and that she has had a hysterectomy. CT of the abdomen pelvis shows a transition point in the right lower quadrant in the distal ileum. She is not having any emesis and her stomach does not appear overly enlarged on the CT scan so no NG tube was placed in the ER. [facility] Medical History (Updated 08/14/24 @ 09:[address] Clifton Gregory MD) Small bowel obstruction History of diverticulitis of colon Back pain Scoliosis of lumbar spine Non-cardiac chest pain Atrophic vaginitis Acute stress reaction Segmental and somatic dysfunction of pelvic region Segmental and somatic dysfunction of lumbar region Obesity Hyperlipidemia Lichen sclerosus et atrophicus Palpitations Hypertension Diverticulitis, colon Cellulitis, perineum AVD (aortic valve disease) Aortic root dilatation Wears glasses Post-menopausal Anxiety History of diverticulitis Former smoker History of echocardiogram History of transesophageal echocardiography (ALONDRA) Cardiology follow-up encounter Hx of small bowel obstruction Failure of outpatient treatment Acute diverticulitis Essential hypertension Fatigue Dyspnea on exertion Abnormal EKG Prolonged QT interval First degree AV block SBO (small bowel obstruction) Obesity Nonrheumatic aortic valve insufficiency Home Medications ?Medication ?Instructions ?Recorded ?Last Taken ?Type olmesartan 40 mg tablet 20 mg PO QHS bp 08/30/21 11/22/22 21:00 History potassium chloride 20 mEq 20 meq PO DAILY potassium 11/23/22 11/22/22 21:00 History tablet,extended supplement release(part/cryst) (Klor-Con M) iodine 150 mcg tablet 150 mcg PO DAILY supplement 06/20/23 Unknown History multivitamin (Daily Multi-Vitamin 1 tab PO DAILY vitamin 06/20/23 Unknown History tablet) cholecalciferol (vitamin D3) 1 tab PO DAILY vitamin 06/21/23 Unknown History vitamin B complex 1 tab PO DAILY vitamin 06/21/23 Unknown History clobetasol 0.05 % topical ointment 1 applic topical [facility] 01/09/24 Unknown Rx grams omega 2-pnb-dax-fish oil 300 1 cap PO DAILY 02/25/24 Unknown History mg-1,000 mg capsule (Fish Oil) Allergy/AdvReac Type Severity Reaction Status Date / Time hydrochlorothiazide AdvReac Severe SEVERE Verified 08/14/24 04:07 HYPOKALEMIA, hospitalized for it bee venom protein (honey bee) AdvReac Swelling Verified 08/14/24 04:07 Family History Uncle Diabetes Aunt Diabetes Surgical History History of hysterectomy, supracervical History of resection of small bowel History of cardiac catheterization History of right and left heart catheterization (02/10/19) History of bowel resection H/O total hysterectomy History of appendectomy Social History Smoking Status: Former smoker quit date: 08/13/12 pack-years: 10 alcohol intake: current details: social substance use type: does not use caffeine: Yes what type of physical activity do you participate in: bicycling and yoga frequency: 5-6 times per week seatbelt use: always do you feel safe at home: Yes 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[employer] Constitutional Constitutional: Denies chills, fatigue, fever(s) or malaise Eyes Eyes: Denies blurry vision ENT HEENT: Denies headache(s) or nasal discharge Cardiovascular Cardiovascular: Denies chest pain, dyspnea on exertion or syncope Respiratory/Chest Respiratory/Chest: Denies cough, shortness of breath at rest or shortness of breath with exertion Gastrointestinal Gastrointestinal: Reports abdominal pain and nausea; Denies constipation, diarrhea or vomiting Genitourinary Genitourinary: Denies dysuria Neurologic Neurologic: Denies focal weakness, numbness or tremor(s) Psychiatric Psychiatric: Denies anxiety or depression Vital Signs Vital Signs Vital Signs: 08/14/24 04:07 08/14/24 04:12 08/14/24 05:26 Temperature 98 F Temperature Source Oral Pulse Rate 74 58 L Respiratory Rate 18 18 Blood Pressure 210/84 H 133/65 H Blood Pressure Mean 126 87 Pulse Ox 99 93 Oxygen Delivery Method Room Air Room Air 08/14/24 07:00 08/14/24 08:11 Temperature 97.9 F Temperature Source Pulse Rate 55 L 62 Respiratory Rate 20 H 16 Blood Pressure 110/70 148/71 H Blood Pressure Mean 83 96 Pulse Ox 94 98 Oxygen Delivery Method Room Air Weight Weight: 195 lb 1.745 oz Body Mass Index (BMI) 30.5 Physical Exam Narrative General: Alert, Oriented x3, Cooperative, No apparent distress HEENT: Atraumatic, PERRLA, EOMI, Normocephalic Oral: Moist Mucosa Neck: Supple, No JVD Lungs: Clear to auscultation, Normal air movement, No rhonchi, No wheeze, No rales Cardiovascular: Regular rate, Regular Rhythm, Normal S1, Normal S2, murmur Abdomen: Soft, tender to palpation right lower quadrant, Non-Distended, No Hepato-splenomegaly Extremities: No edema, Capillary Refill Less than 3 Seconds Skin: No rashes, No breakdown Musculoskeletal: No Tenderness to Palpation of Joints or Extremities Neurological: No focal neurological deficits, Motor Exam 5/5 strength throughout, Sensory exam intact to light touch and pain Psych/Mental Status: Normal Affect, Appropriate Results Lab / Micro Data 08/14/24 04:40 08/14/24 05:32 Labs: Laboratory Results - last 24 hr 08/14/24 04:40: WBC 10.9, RBC 4.90, Hgb 14.6, Hct 44.6, MCV 91.0, MCH 29.8, MCHC 32.7, RDW Std Deviation 46.5 H, RDW Coeff of Bhavya 13.9, Plt Count 359, MPV 9.4, Immature Gran % (Auto) 0.400, Neut % (Auto) 59.3, Lymph % (Auto) 30.3, [place] % (Auto) 7.9, Eos % (Auto) 1.4, Baso % (Auto) 0.7, Absolute Neuts (auto) 6.5, Absolute Lymphs (auto) 3.29, Nucleated RBC % 0, Sodium Cancelled, Potassium Cancelled, Chloride Cancelled, Carbon Dioxide Cancelled, Anion Gap Cancelled, BUN Cancelled, Creatinine Cancelled, Estim Creat Clear Calc Cancelled, Est GFR (MDRD) Af Amer Cancelled, Est GFR (MDRD) Non-Af Cancelled, BUN/Creatinine Ratio Cancelled, Glucose Cancelled, Calcium Cancelled, Total Bilirubin Cancelled, AST Cancelled, ALT Cancelled, Alkaline Phosphatase Cancelled, Total Protein Cancelled, Albumin Cancelled, Globulin Cancelled, Albumin/Globulin Ratio Cancelled, Lipase Cancelled 08/14/24 05:03: Urine Color Yellow, Urine Clarity Sl. Cloudy, Urine pH 6.0, Ur Specific [place] 1.025, Urine Protein 15 H, Urine Glucose (UA) Normal, Urine Ketones Negative, Urine Occult Blood 25 H, Urine Nitrite Negative, Urine Bilirubin Negative, Urine Urobilinogen Normal, Ur Leukocyte Esterase 25 H, Urine RBC 0-5 SEEN, Urine WBC 0-5 SEEN, Ur Squamous Epith Cells 0-5 SEEN, Urine Bacteria RARE, Urine Mucus 0 SEEN 08/14/24 05:32: Sodium 139, Potassium 5.2 H, Chloride 105, Carbon Dioxide 26.0, Anion Gap 8, BUN 15, Creatinine 0.95, Estim Creat Clear Calc 67.44, Est GFR (MDRD) Af Amer 76, Est GFR (MDRD) Non-Af 63, BUN/Creatinine Ratio 15.8, Glucose 121 H, Calcium 8.8, Total Bilirubin 0.50, AST 40 H, ALT 33, Alkaline Phosphatase 87, Total Protein 7.5, Albumin 3.5, Globulin 4.0, Albumin/Globulin Ratio 0.9, Lipase 26 Imaging Radiology Impression Abdomen/Pelvis CT 08/14/24 04:21 IMPRESSION: Small bowel obstruction the distal ileum. Electronically Signed: Sean Adorno MD at 6:59 EST Reading Location ID and State: [facility] / [place] Tel , Service support , Assessment & Plan Assessment/Plan (1) Small bowel obstruction: PLAN: Plan 1. SBO ? Continue with n.p.o. ? Low threshold for NG tube placement ? Pain management and nausea medications ? IV fluids 2. Essential HTN ? Blood pressures are stable at this time ? Will hold her oral blood pressure medication secondary to her n.p.o. status ? Will monitor and make adjustments as necessary DVT: Ambulation 75 minutes was spent on direct patient care, including documentation as well as chart review and collaboration with colleagues Charges/Coding Visit Charges Inpatient E&M: 21504 Init Hosp L3
[2024-08-14] MEDS: 0.9% Normal Saline (1000mL) 1,000 ML 100 ML IV ×2 (09:45→20:27)
[2024-08-14] MEDS: 0.9% Saline Lock 10 ML Syringe IV ×2 (09:47→23:04)
--- NOTE | 2024-08-14 14:31 | CHAPLAIN ---
Type of Pastoral Visit ___ Initial Visit ___ Follow-up Visit ___ On-call Visit ___ General Patient Visit ___ Spiritual Assessment ___ Family Conference ___ Bereavement ___ Rapid Response ___ Code Blue ___ Other (describe below) Pastoral Care Referral From ___ Patient ___ Family ___ Nurse ___ Physician ___ Medical Microbiologist ___ Airplane Charter Clerk ___ Other (describe below) Sacrament/Intervention ___ Active listening ___ Anointing ___ Zoroastrianism ___ Bereavement ___ Communion ___ Roxanne exploration ___ ___ Life review ___ Prayer ___ Reconciliation ___ Sacrament of Sick ___ Supportive presence ___ Wedding ___ Other (describe below) Pastoral Comments offer of supportive visit and the patient and family declined
[2024-08-15 05:28] VITALS: BP 132/78; PULSE 68; RESP 16; TEMP 37; O2SAT 98
[2024-08-15 06:24] LABS: Absolute Lymphocyte Count 2.25 X10^3/uL (0.83-4.51); Absolute Neutrophil Count 5.8 X10^3/uL (2.0-7.7); Basophil# 0.03 X10^3/uL; Basophil% 0.3 % (0-1); Eosinophil# 0.09 X10^3/uL; Hemoglobin 12.8 g/dL (12.0-15.0); Lymphocyte # 2.25 X10^3/ul (0.83-4.51); Lymphocyte % 25.4 % (19-41); Mean Corp Hgb Conc 31.2 g/dL (32-36); Mean Corpuscular Hgb 28.6 pg (27.0-32.0); Mean Corpuscular Volume 91.5 fL (81-99); Mean Platelet Vol. 9.5 fl (6.2-12.0); Monocyte# 0.69 X10^3/uL; Monocyte% 7.8 % (0-10); NRBC Flagged by Analyzer 0 % (0-5); Neutrophil # 5.76 X10^3/uL (2.7-7.7); Neutrophil % 65.2 % (47-70); Platelet Count 344 K/mm3 (150-450); RBC Distribution Width CV 13.7 % (11.6-14.6); RBC Distribution Width SD 46.5 fl (35.1-43.9); Red Blood Count 4.48 M/mm3 (4.2-5.4); White Blood Count 8.9 K/mm3 (4.4-11.0)
[2024-08-15 06:32] LABS: Anion Gap 5 (5-15); BUN 11 mg/dL (7-18); BUN/Creat Ratio 14.8 RATIO (10-20); Calcium,Total 8.4 mg/dL (8.5-10.1); Chloride 110 mmol/L (98-107); Creatinine, Serum 0.74 mg/dL (0.55-1.02); EST Glomerular Filtration Rate 83 mL/min (>60); Est Glom Filt Rate - Afr Amer 100 mL/min (>60); Estimated Creatinine Clearance 80.09 ml/min; Glucose 108 mg/dL (74-106); Sodium Level 140 mmol/L (136-145)
[2024-08-15 08:00] VITALS: BP 114/80; PULSE 71; RESP 13; TEMP 36.7; O2SAT 97
--- NOTE | 2024-08-15 08:09 | PN.HOSP_ITS ---
Subjective Subjective Doing well, feels better than yesterday, pain is improved Objective Data Objective Data Vital Signs: Vital Signs Temp Pulse Resp BP Pulse Ox O2 Del Method O2 Flow Rate 98.6 F 68 16 132/78 H 98 Room Air 2 08/15/24 05:28 08/15/24 05:28 08/15/24 05:28 08/15/24 05:28 08/15/24 05:28 08/15/24 05:28 08/14/24 19:30 Oxygen Flow Rate (L/min) 2 Oxygen Delivery Method Room Air Weight: 195 lb 1.745 oz Body Mass Index (BMI) 30.5 Intake & Output: Intake and Output for Last 24 Hours 08/14/24 08/15/24 08/16/24 03:59 03:59 03:59 Intake Total 1000 / 1000 1000 / 1000 Output Total 525 / 525 Balance 1000 / 1000 475 / 475 Lab / Micro Data 08/15/24 05:43 08/15/24 05:43 Labs: Laboratory Results - last 24 hr 08/15/24 05:43: WBC 8.9, RBC 4.48, Hgb 12.8, Hct 41.0, MCV 91.5, MCH 28.6, MCHC 31.2 L, RDW Std Deviation 46.5 H, RDW Coeff of Bhavya 13.7, Plt Count 344, MPV 9.5, Immature Gran % (Auto) 0.300, Neut % (Auto) 65.2, Lymph % (Auto) 25.4, [place] % (Auto) 7.8, Eos % (Auto) 1.0, Baso % (Auto) 0.3, Absolute Neuts (auto) 5.8, Absolute Lymphs (auto) 2.25, Nucleated RBC % 0, Sodium 140, Potassium 4.0, C hloride 110 H, Carbon Dioxide 25.0, Anion Gap 5, BUN 11, Creatinine 0.74, Estim Creat Clear Calc 80.09, Est GFR (MDRD) Af Amer 100, Est GFR (MDRD) Non-Af 83, BUN/Creatinine Ratio 14.8, Glucose 108 H, Calcium 8.4 L Physical Exam Narrative General: Alert, Oriented x3, Cooperative, No apparent distress HEENT: Atraumatic, PERRLA, EOMI, Normocephalic Oral: Moist Mucosa Neck: Supple, No JVD Lungs: Clear to auscultation, Normal air movement, No rhonchi, No wheeze, No rales Cardiovascular: Regular rate, Regular Rhythm, Normal S1, Normal S2, murmur Abdomen: Soft, minimally tender to palpation right lower quadrant, Non- Distended, No Hepato-splenomegaly Extremities: No edema, Capillary Refill Less than 3 Seconds Skin: No rashes, No breakdown Musculoskeletal: No Tenderness to Palpation of Joints or Extremities Neurological: No focal neurological deficits, Motor Exam 5/5 strength throughout, Sensory exam intact to light touch and pain Psych/Mental Status: Normal Affect, Appropriate Assessment & Plan Assessment/Plan (1) Small bowel obstruction: PLAN: Plan 1. SBO ? Will advance to clear liquid diet as she is continue to have flatus and her pain is improved ? Low threshold for NG tube placement ? Pain management and nausea medications 2. Essential HTN ? Blood pressures are stable at this time ? Will hold her oral blood pressure medication secondary to her n.p.o. status ? Will monitor and make adjustments as necessary DVT: Ambulation Charges/Coding Visit Charges Inpatient E&M: 76224 Subs Hosp L2
--- NOTE | 2024-08-15 13:45 | CASEMGMT ---
RN CM Face to Face with patient for initial transition planning/care coordination assessment. RN CM introduced self and role at [facility]. Patient lying in bed, alert and oriented. Patient willing to participate in assessment and is able to answer all questions appropriately. Care providers, pharmacy, and demographics verified. Strata: 2 PCP: Al Specialists: Neeraj, blender helper; Friend, GI Preferred Pharmacy: [facility] Insurance: [facility] Prescription Benefit: yes Living Will/HPOA: yes, Praful Iyer LNOK: , daughter Living Arrangements: Patient lives with in a 3 story home with bed and bath on first floor, no steps to enter the home. Patient states she is independent at home. Transportation: self, DME/HHC: Patient has grab bars at home. No previous HHC or SNF Patient wishes to discharge home, denies need for home health at this time. Patient states she has no further needs or concerns at this time. CM to follow for discharge planning needs that may arise. Disposition Plan: Patient to discharge home with family support and follow-up plans in place. Kiesha LIU, RN, CM
[2024-08-15 14:00] VITALS: BP 139/70; PULSE 71; RESP 16; TEMP 36.7; O2SAT 95
[2024-08-15 23:40] VITALS: BP 146/88; PULSE 68; RESP 16; TEMP 37.2; O2SAT 96
[2024-08-16 06:00] VITALS: BP 136/82; PULSE 74; RESP 16; TEMP 36.8; O2SAT 100
--- NOTE | 2024-08-16 07:53 | NURSING ---
pt a&ox3. dr. jean bedside with patient. no needs voiced at this time. no distress noted. LEAD ACCOUNTANT charting reviewed.
[2024-08-16 08:08] VITALS: BP 155/78; PULSE 66; RESP 16; TEMP 36.2; O2SAT 96
--- NOTE | 2024-08-16 09:37 | PCM.DC ---
Discharge Instructions Diet Discharge Diet: Low fat / Low cholesterol DC O2, CPAP, BIPAP needs Home O2 Discharge instructions: No Dressing / Incision Discharge Activity: Return to Normal Activity Dressing / Incision Call your doctor if you observe: Fever of 101 or Higher, Shortness of breath, Dizziness, Fainting spells, Swelling in the ankles, Chest pain and Increased palpitations (irregular heartbeat) Follow Up Care Test Results: Test results from this visit will be discussed in further detail at your follow-up appointment, if applicable. Discharge Plan Admission Admit Date/Time: 08/14/24 07:33 Attending Provider: Clifton Gregory Primary Care Provider: Gavino Melendez Discharge Orders/Prescriptions Prescriptions: Continued omega 2-cfo-mob-fish oil [Fish Oil] 300-1,000 mg capsule 1 cap PO DAILY potassium chloride [Klor-Con M20] 20 mEq tablet,ER particles/crystals 20 meq PO DAILY iodine 150 mcg tablet 150 mcg PO DAILY multivitamin [Daily Multi-Vitamin] Tablet 1 tab PO DAILY cholecalciferol (vitamin D3) [Vitamin D3] 1 tab PO DAILY vitamin B complex Tablet 1 tab PO DAILY olmesartan 40 mg tablet 20 mg PO QHS clobetasol 0.05 % ointment 1 applic TOPICAL PRN Qty: 30 4RF Referrals / Follow Up: Gavino Melendez MD [Primary Care Provider] - Within 1 Week Disposition Disposition (needs filled in before D/C Order can be placed): Home, Self Care
[2024-08-16 10:13] VITALS: BP 127/61; PULSE 70; RESP 18; TEMP 36.3; O2SAT 67
--- NOTE | 2024-08-16 15:32 | DS.PCM_ITS ---
Providers Date of Admission: 08/14/24 Primary Care Physician: Gavino Melendez MD Reason For Visit: SBO Diagnosis Discharge Diagnosis (1) Small bowel obstruction: Status: Acute Code(s): K56.609 - Unspecified intestinal obstruction, unspecified as to partial versus complete obstruction Medications at Discharge Home Medications olmesartan 40 mg tablet 20 mg PO QHS bp 08/30/21 potassium chloride 20 mEq tablet,extended release(part/cryst) (Klor-Con M) 20 meq PO DAILY potassium supplement 11/23/22 iodine 150 mcg tablet 150 mcg PO DAILY supplement 06/20/23 multivitamin (Daily Multi-Vitamin tablet) 1 tab PO DAILY vitamin 06/20/23 cholecalciferol (vitamin D3) 1 tab PO DAILY vitamin 06/21/23 vitamin B complex 1 tab PO DAILY vitamin 06/21/23 clobetasol 0.05 % topical ointment 1 applic [facility] #30 grams 01/09/24 omega 6-fnv-mrm-fish oil 300 mg-1,000 mg capsule (Fish Oil) 1 cap PO DAILY 02/25/24 Hospital Course Operations None Procedures None Summary of Care Provided Minutes Spent on Discharge: 40 Hospital Course: Per HPI: JASSON GRIMALDO, is a 63 F who presents to the hospital with abdominal pain and nausea that started last night around 8 PM. She has a history of small bowel obstructions given her previous abdominal surgery history, she had a volvulus as a child that had surgical repair and that she has had a hysterectomy. CT of the abdomen pelvis shows a transition point in the right lower quadrant in the distal ileum. She is not having any emesis and her stomach does not appear overly enlarged on the CT scan so no NG tube was placed in the ER. Hospital Course: 1. Small bowel obstruction?63-year-old female with extensive past surgical history presented to the hospital with signs and symptoms consistent with small bowel obstruction. This is the first episode of small bowel obstruction. She did not have any significant nausea or vomiting on the day of admission so an NG tube was not placed. She had resolution of her symptoms during her hospitalization, she was started on a clear liquid diet and advance to full liquid diet yesterday and today she tolerated a regular diet for breakfast. She had return of bowel function so I discussed with her the possibility of discharge today, she expressed understanding of the risk benefits going home and would like to go home today. Physical Exam Narrative General: Alert, Oriented x3, Cooperative, No apparent distress HEENT: Atraumatic, PERRLA, EOMI, Normocephalic Oral: Moist Mucosa Neck: Supple, No JVD Lungs: Clear to auscultation, Normal air movement, No rhonchi, No wheeze, No rales Cardiovascular: Regular rate, Regular Rhythm, Normal S1, Normal S2, murmur Abdomen: Soft, nontender, Non-Distended, No Hepato-splenomegaly Extremities: No edema, Capillary Refill Less than 3 Seconds Skin: No rashes, No breakdown Musculoskeletal: No Tenderness to Palpation of Joints or Extremities Neurological: No focal neurological deficits, Motor Exam 5/5 strength throughout, Sensory exam intact to light touch and pain Psych/Mental Status: Normal Affect, Appropriate Weight / BMI Weight Weight: 195 lb 1.745 oz Body Mass Index (BMI) 30.5 ABG / Lab / Microbiology Data 08/15/24 05:43 08/15/24 05:43 D/C Instructions Discharge Diet: Low fat / Low cholesterol Call your doctor if you observe: Fever of 101 or Higher, Shortness of breath, Dizziness, Fainting spells, Swelling in the ankles, Chest pain and Increased palpitations (irregular heartbeat) DC O2, CPAP, BIPAP Needs Home O2 Discharge instructions: No Meaningful Use Info Meaningful Use Meaningful Use Diagnoses (Choose all that apply): None applicable Ischemic Stroke Statin Dosing Therapy Reference: STATIN DOSE THERAPY REFERENCE: * Patients > 75 years receive moderate or high dose statin therapy. * Patients 75 years or YOUNGER should receive HIGH intensity statin dose unless contraindicated. You will be required to document reason for non-treatment if statin daily dose does not meet guidelines. HIGH DOSE STATIN THERAPY DAILY Atorvastatin > than or = to 40 mg Rosuvastatin > than or = to 20 mg Amlodipine + Atorvastatin > than or = to 2.5/40 mg Ezetimibe + Simvastatin 10/80 mg Simvastatin 80mg Discharge Plan Admission Admit Date/Time: 08/14/24 07:33 Attending Provider: Clifton Gregory Primary Care Provider: Gavino Melendez Discharge Orders/Prescriptions Prescriptions: Continued omega 4-ojf-pti-fish oil [Fish Oil] 300-1,000 mg capsule 1 cap PO DAILY potassium chloride [Klor-Con M20] 20 mEq tablet,ER particles/crystals 20 meq PO DAILY iodine 150 mcg tablet 150 mcg PO DAILY multivitamin [Daily Multi-Vitamin] Tablet 1 tab PO DAILY cholecalciferol (vitamin D3) [Vitamin D3] 1 tab PO DAILY vitamin B complex Tablet 1 tab PO DAILY olmesartan 40 mg tablet 20 mg PO QHS clobetasol 0.05 % ointment 1 applic TOPICAL PRN Qty: 30 4RF Referrals / Follow Up: Gavino Melendez MD [Primary Care Provider] - Within 1 Week Disposition Disposition (needs filled in before D/C Order can be placed): Home, Self Care Charges/Coding Visit Charges Inpatient E&M: 77260 Disch Hosp >30min
== END 2024-08-16 10:19 | disposition home or self-care (01) | DRG 390 ==
LOC: ED 07:37 → MS3 08:06
PROVIDERS: Admitting Provider Family Medicine; Emergency Provider Surgery; PCP Family Medicine; Visit Provider Family Medicine
DX: K56.609 Unspecified intestinal obstruction, unspecified as to partial versus complete obstruction (principal); E78.5 Hyperlipidemia, unspecified; I10 Essential (primary) hypertension; E87.5 Hyperkalemia; K57.90 Diverticulosis of intestine, part unspecified, without perforation or abscess without bleeding; Z87.891 Personal history of nicotine dependence; Z90.710 Acquired absence of both cervix and uterus
CPT/HCPCS: 36415; 74177; 80048; 80053; 81001; 83690; 85025; 99284; Q9967; A4216; J2405

== ENCOUNTER → 2024-09-10 | Outpatient (CLI) | payer MEDICARE, OTHER, SELFPAY ==
[2024-09-10 11:07] LABS: Anion Gap 9 (5-15); BUN 12 mg/dL (7-18); BUN/Creat Ratio 12.2 RATIO (10-20); Calcium,Total 9.5 mg/dL (8.5-10.1); Chloride 106 mmol/L (98-107); Cholesterol 281 mg/dL (200); Creatinine, Serum 0.98 mg/dL (0.55-1.02); EST Glomerular Filtration Rate 60 mL/min (>60); Est Glom Filt Rate - Afr Amer 73 mL/min (>60); Glucose 99 mg/dL (74-106); High Density Lipoprotein 61 mg/dL; Potassium 4.2 mmol/L (3.5-5.1); Sodium Level 139 mmol/L (136-145); Triglycerides 131 mg/dL; Very Low Density Lipoprotein 26 mg/dL (5-40)
== END | disposition home or self-care (01) ==
LOC: LAB 09:37
PROVIDERS: PCP Family Medicine; Referring Provider Internal Medicine Cardiovascular Disease; Visit Provider Internal Medicine Cardiovascular Disease
DX: R94.31 Abnormal electrocardiogram [ECG] [EKG] (principal); R06.09 Other forms of dyspnea; R53.83 Other fatigue; R00.2 Palpitations; I10 Essential (primary) hypertension; E78.5 Hyperlipidemia, unspecified
CPT/HCPCS: 36415; 80048; 80061

== ENCOUNTER → 2024-09-19 | Outpatient (CLI) | payer MEDICARE, OTHER, SELFPAY ==
[2024-09-19 13:08] LABS: Follicle Stimulating Hormone 40.6 mIU/mL; Luteinizing Hormone 13.6 mIU/mL
[2024-09-27 04:07] LABS: PROGESTERONE <0.1 ng/mL (.)
== END | disposition home or self-care (01) ==
LOC: MFPLAB 10:20
PROVIDERS: PCP Family Medicine; Referring Provider Family Medicine; Visit Provider Family Medicine
DX: R23.2 Flushing (principal)
CPT/HCPCS: 36415; 82672; 83001; 83002; 84144; 84443

== ENCOUNTER → 2024-10-01 | Outpatient (CLI) | payer MEDICARE, OTHER, SELFPAY ==
--- NOTE | 2024-10-01 09:58 | US_ITS ---
PROCEDURE: THYROID REASON FOR EXAM: Palpable abnormality. TECHNIQUE: Thyroid ultrasound COMPARISON: None. FINDINGS: Right thyroid lobe measures 5.2 cm x 1.9 cm x 2.1 cm. Left thyroid lobe measures 3.9 cm x 1.6 cm x 1.7 cm. Isthmus thickness is3 mm. Thyroid Size: Mild enlargement of the right lobe of the thyroid. Background Echotexture: Normal Thyroid Nodules: None There is a 1.4 cm x 0.7 cm x 0.6 cm benign-appearing lymph node in the right side of neck. There are 2 subcentimeter benign-appearing lymph nodes in the left side of the neck. US/Thyroid IMPRESSION: NORMAL THYROID ULTRASOUND Small bilateral benign-appearing cervical lymph nodes. Reading Location: [id number]
== END | disposition home or self-care (01) ==
LOC: US 09:57
PROVIDERS: PCP Family Medicine; Referring Provider Family Medicine; Visit Provider Family Medicine
DX: R23.2 Flushing (principal)
CPT/HCPCS: 76536

== ENCOUNTER → 2024-11-21 | Outpatient (CLI) | payer MEDICARE, OTHER, SELFPAY | END | disposition home or self-care (01) | LOC: MTLAB 16:57 | PROVIDERS: PCP Family Medicine; Referring Provider Family Medicine; Visit Provider Family Medicine | DX: E03.8 Other specified hypothyroidism (principal) | CPT/HCPCS: 36415; 84443 ==

== ENCOUNTER → 2024-12-09 | Outpatient (CLI) | payer MEDICARE, OTHER, SELFPAY ==
--- NOTE | 2024-12-09 15:01 | BD_ITS ---
PROCEDURE: DEXA BONE DENSITY STUDY 12/09/2024 REASON FOR EXAM: F, age 64 y/o . Postmenopausal. TECHNIQUE: DEXA scan of sites with data reported below. Scanner utilized: [email or web address]. REFERENCE LINKS: ISCD Adult Positions COMPARISON: None FINDINGS: BMD and T-SCORES Lumbar spine: 1.091 g/cm2, T-score 0.4 Levels: L1 through L4 Left femoral neck: 0.762 g/cm2, T-score -0.8 Left total hip: 0.987 g/cm2, T-score 0.4 Right femoral neck: 0.701 g/cm2, T-score -1.3 Right total hip: 0.868 g/cm2, T-score -0.6 The World Health Organization has defined the following categories based on bone density: Normal bone density: T-score equal to or greater than -1.0 Osteopenia: T-score between -1.0 and -2.5 Osteoporosis: T-score equal to or less than -2.5 FRAX (or Comparable) Fracture Risk Assessment: 10 Year Probability of Fracture: Major Osteoporotic Fracture: 8.3% Hip Fracture: 0.8% (Note: FRAX is not to be reported in setting of normal range bone density, osteoporosis on DEXA, known history of osteoporosis, prior osteoporotic hip or vertebral fracture, or for any patient undergoing pharmacological treatment for bone loss.) The National Osteoporosis Foundation (NOF) recommends pharmacological treatment for patients with a FRAX 10-year risk of 3% or higher for a hip fracture, or 20% or higher for a major osteoporotic fracture, to prevent osteoporosis and reduce fracture risk. The patient does not meet the pharmacological treatment recommendations for prevention of osteoporosis. BD/Dexa Bone Density Study IMPRESSION: OSTEOPENIA. Recommend follow-up as clinically warranted. Reading Location: [id number]
== END | disposition home or self-care (01) ==
LOC: OPBD 14:56
PROVIDERS: PCP Family Medicine; Referring Provider Family Medicine; Visit Provider Family Medicine
DX: Z00.00 Encounter for general adult medical examination without abnormal findings (principal); Z78.0 Asymptomatic menopausal state
CPT/HCPCS: 77080

== ENCOUNTER → 2025-03-10 | Outpatient (CLI) | payer MEDICARE, OTHER, SELFPAY ==
--- NOTE | 2025-03-10 06:26 | CT_ITS ---
PROCEDURE: CTA CHEST W/WO CONTRAST 03/10/2025 REASON FOR EXAM: THORACIC AORTA ANEURYSM TECHNIQUE: CTA CHEST W/WO CONTRAST Multiplanar Sagittal and Coronal images were obtained. CONTRAST: Isovue 370 VOLUME: 100 mL One or more dose reduction techniques were used (e.g., Automated exposure control, adjustment of the mA and/or kV according to patient size, use of iterative reconstruction technique). RADIATION DOSE SUMMARY: CTDlvol: 27.13 mGy DLP: 610.71 mGycm COMPARISON: 03/24/2024 # of known CTs in the past 12 months: 1 # of known Cardiac Nuclear Medicine Studies in the past 12 months: 0 FINDINGS: Thoracic Aorta: The ascending thoracic aorta shows borderline aneurysmal dilatation at 4.4 cm. This is essentially unchanged from the previous study. No significant increase in size since the previous study. No CTA evidence of dissection. The thyroid gland is unremarkable. No suspicious axillary, mediastinal or perihilar adenopathy. There are calcified coronary vessels. The lung windows show the lungs to be normally expanded. There is no organized infiltrate, effusion, or suspicious noncalcified mass or nodule. Bony structures show degenerative change Limited cuts through the upper abdomen do not show a suspicious abnormality CT/CTA Chest W/WO Contrast IMPRESSION: Stable borderline aneurysmal dilatation of the ascending thoracic aorta at 4.4 cm. No evidence of dissection. Normal origins of the great vessels. No acute pulmonary process No suspicious adenopathy Calcified coronary vessels Degenerative bony changes Reading Location: [id number]
--- OUTSIDE RECORDS SUMMARY | 2025-03-10 06:28 | XMS RPT_ITS | CCD ---
Author Organization [facility] Care Team Providers Care Administrative Staff Supervisor Name Role Phone Tizzano, Dangelo P Unavailable Unavailable No Doctor Assigned, Nodr Unavailable Unavail able Tizzano, Dangelo P Unavailable Unavailable Tizzano, Dangelo P Unavailable Unavailable No Doctor Assigned, Nodr Unavailable Unavail able Tizzano, Dangelo P Unavailable Unavailable No Doctor Assigned, Nodr Unavailable Unavail able Dr. Nito Villalobos Primary Care Provider Dr. Nito Villalobos Referring Provider Annette BELL ATTENDANT, BELL ATTENDANT-Tuan Alvares Attending Provider Dr. Nito Villalobos Primary Care Provider Dr. Nito Villalobos Referring Provider Dr. Katya Marshall Attending Provider [phone] Kd MARTINEZ, Jimi Groves Unavailable Nito Villalobos MD Primary Care Provider Dr. Nito Villalobos Primary Care Provider Dr. Johann Noble Emergency Provider Dr. Stephanie Elizalde Admit Provider Dr. Stephanie Elizalde Attending Provider Dr. Stephanie Elizalde Other Provider Dr. Paul Kapadia Attending Provider Dr. Paul Kapadia Other Provider Dr. Nito Villalobos Referring Provider Dr. Lenny Shrestha Attending Provider Dr. Lenny Shrestha Other Provider Annette BELL ATTENDANT, BELL ATTENDANT-Tuan Alvares Attending Provider Neeraj, Dr. Alcocer Attending Provider Nito Villalobos MD Primary Care Provider NITO VILLALOBOS Primary Care Unavailable NITO VILLALOBOS Primary Care Unavailable Dr. Nito Villalobos Primary Care Provider Dr. Nito Villalobos Referring Provider Roof BELL ATTENDANT, BELL ATTENDANT-C Gareth Alvares Attending Provider Neeraj, Dr. Alcocer Attending Provider LADONNA Roche Attending Provider Dr. Patrice Schmidt Emergency Provider Dr. Sisi Vincent Admit Provider Unavailabl e Dr. Sisi Vincent Other Provider Unavailabl e Dr. Ben Villafuerte Attending Provider Dr. Ben Villafuerte Other Provider Dr. Carly Lorenz Other Provider Dr. Kristin Caldwell Attending Provider Dr. Nito Villalobos Primary Care Provider Dr. Nito Villalobos Referring Provider Dr. Carly Lorenz Referring Provider Dr. Carly Lorenz Attending Provider Dr. Nito Villalobos Primary Care Provider Gavino Melendez MD Primary Care Provider Dr. Ariel Melendez DO Emergency Provider Colt MARTINEZ, Dr. Clifton Tinsley Admit Provider Dr. Clifton Gregory MD Attending Provider Colt MARTINEZ, Dr. Clifton Tinsley Other Provider Gavino Melendez MD Referring Provider Dr. Carlyn Pickard MD Attending Provider Dr. Carlyn Pickard MD Referring Provider Al MARTINEZ, Gavino Attending Provider Al MARTINEZ, Chalon Primary Care Provider Al MARTINEZ, Gavino Attending Provider [phone] Al MARTINEZ, Gavino Referring Provider [phone] William Carey Attending Provider Al, Chalon Primary Care Unavailable Al, Chalon Referring Unavailable Al, Chalon Attending Unavailable Clifton Gregory Consulting Unavailable Al, Chalon Primary Care Unavailable Clifton Gregory Attending Unavailable Clifton Gregory Admitting Unavailable Al, Chalon Primary Care Unavailable Al, Chalon Referring Unavailable Al, Chalon Attending Unavailable Al, Chalon Primary Care Unavailable Neeraj, Carlyn Referring Unavailable Neeraj, Carlyn Attending Unavailable Al, Chalon Primary Care Unavailable Neeraj, Carlyn Referring Unavailable Neeraj, Carlyn Attending Unavailable Al, Chalon Primary Care Unavailable Al, Chalon Referring Unavailable Al, Chalon Attending Unavailable Johann Noble Attending Unavailable Al, Chalon Primary Care Unavailable Al, Chalon Primary Care Unavailable Al, Chalon Referring Unavailable Neeraj, Carlyn Attending Unavailable Al, Chalon Primary Care Unavailable Neeraj, Carlyn Referring Unavailable Neeraj, Carlyn Attending Unavailable Krista Nielsen Attending Unavailable Al, Chalon Primary Care Unavailable Nito Villalobos Referring Unavailable Al, Chalon Primary Care Unavailable Al, Chalon Referring Unavailable William Alvarez Attending Unavailable Al, Chalon Primary Care Unavailable Al, Chalon Referring Unavailable Angela Pierson Attending Unavailable Al, Chalon Primary Care Unavailable Neeraj, Carlyn Attending Unavailable Al, Chalon Primary Care Unavailable Iván MARCOS, Krista Attending Unavailable Al, Chalon Primary Care Unavailable JamesanthonyKatya Referring Unavailable OsbaldoonyKatya Attending Unavailable Al, Chalon Primary Care Unavailable Krista Nielsen Referring Unavailable Krista Nielsen Attending Unavailable Al, Chalon Primary Care Unavailable Johann Noble Referring Unavailable Johann Noble Attending Unavailable Al, Chalon Primary Care Unavailable Al, Chalon Referring Unavailable Al, Chalon Attending Unavailable Clifton Gregory Attending Unavailable Clifton Gregory Admitting Unavailable Gavino Melendez Primary Care Unavailable Gavino Melendez Primary Care Unavailable William Alvarez Referring Unavailable William Alvarez Attending Unavailable Allergies Allergy Classification Reported Allergen(s) Allergy Type Date of Onset Reaction(s) Facility (1 source) No Known Medication Allergies; Translations: [No Known Medication Allergies] Propensity to adverse reactions to drug (disorder) [facility] Repository (17 sources) hydroCHLOROthiazide Drug Allergy 022 SEVERE HYPOKALEMIA, hospitalized for it [facility] (17 sources) bee venom protein (honey bee) Propensity to adverse reactions 022 Swelling [facility] (11 sources) Codeine; Translations: [CODEINE] Drug Allergy 007 Intolerance [facility] Work Phone: (4 sources) FLUoxetine; Translations: [FLUOXETINE HCL] Drug Allergy 007 [facility] Work Phone: (1 source) Codeine Drug Allergy 024 [facility] Repository (1 source) hydroCHLOROthiazide Drug Allergy 025 [facility] Repository (1 source) bee venom protein (honey bee) Drug allergy (disorder) 025 [facility] Repository Medications Current Medications Medication Drug Class(es) Dates Sig (Normalized) Sig (Original) biotin 1 mg oral capsule (2 sources) Start: 09-04-2024 take 1 capsule by mouth once daily Biotin 1 mg capsule Active 1 mg PO daily September 04, 2024 1:00am busPIRone hydrochloride 10 mg oral tablet (5 sources) Start: 12-21-2021 take 10 mg by mouth twice daily Buspirone Active 10 MG PO TWICE A DAY December 20, 2021 11:00pm calcium ascorbate 500 mg oral tablet (3 sources) Start: 04-27-2022 take 500 mg by mouth once daily Ascorbate Calcium (Vitamin C) Active 500 MG PO DAILY April 26, 2022 11:00pm Cholecalciferol (12 sources) Vitamin D Start: 06-21-2023 cholecalciferol (vitamin D3) Active 1 {tbl} PO DAILY June 21, 2023 1:00am vitamin Start: 06-21-2023 cholecalcifero l (vitamin D3) Active 1 {tbl} PO DAILY June 21, 2023 1:00am Start: 06-21-2023 take 1 tablet by rudy th once daily cholecalciferol (vitamin D3) Active 1 TABLET PO DAILY June 21, 2023 1:00am Start: 06-21-2023 take 1 tablet by rudy th once daily cholecalciferol (vitamin D3) Active 1 TABLET PO DAILY June 21, 2023 12:00am Start: 04-27-2022 take 50 ug by mouth once daily Cholecalciferol (Vitamin D3) Active 50 MCG PO DAILY April 26, 2022 11:00pm Start: 06-19-2013 take 3 capsules by m outh once daily Cholecalciferol, Vitamin D3, 1,000 unit cap Take 3 capsules by mouth once daily. 0 06/19/2013 Active Comment on above: Take 3 capsules by m outh once daily. coenzyme Q10 (Co Q-10) (2 sources) Start: 5 coenzyme Q10 (Co Q-10) Active PO DAILY September 04, 2024 1:00am [place] 9-Hyv-But-Fish Oil (2 sources) Start: 4 [place] 8-Ugx-Mri-Fish Oil (Fish Oil) 300-1,000 mg capsule Active 1 NMA PO DAILY February 25, 2024 12:00am iodine 0.15 mg oral tablet (7 sources) Start: 3 take 1 tablet by mouth once daily Iodine 150 mcg tablet Active 150 ug PO DAILY June 20, 2023 1:00am supplement levothyroxine sodium 0.075 mg oral capsule (1 source) l-Thyroxine Start: 5 take 1 capsule by mouth once daily Levothyroxine 75 mcg capsule Active 75 ug PO daily February 16, 2025 12:00am Multivitamin (Daily Multi-Vitamin) tablet (7 sources) Start: 3 Multivitamin (Daily Multi-Vitamin) tablet Active 1 {tbl} PO DAILY June 20, 2023 1:00am vitamin Start: 06-20-2023 Multivitamin ( Daily Multi-Vitamin) tablet Active 1 {tbl} PO DAILY June 20, 2023 1:00am Start: 06-20-2023 take 1 tablet by rudy th once daily Multivitamin (Daily Multi-Vitamin) tablet Active 1 TABLET PO DAILY June 20, 2023 1:00am Start: 06-20-2023 take 1 tablet by rudy th once daily Multivitamin (Daily Multi-Vitamin) tablet Active 1 TABLET PO DAILY June 20, 2023 12:00am nystatin 100 unt/mg topical powder (3 sources) Polyene Antifungal Start: 04-27-2022 Nystatin (N ystop) 100,000 unit/gram powder Active 1 APPLIC TOPICAL TWICE A DAY 45 April 26, 2022 11:00pm olmesartan medoxomil 40 mg oral tablet (20 sources) Angiotensin 2 Receptor Dayo Start: 02-16-2025 take 1 tablet by mouth at bedtime Olmesartan 40 mg tablet Active 40 mg PO AT BEDTIME February 16, 2025 9:22am bp Start: 08-30-2021 End: 02-16-2025 Olmesartan 40 mg tablet Disc ontinued 20 mg PO AT BEDTIME August 30, 2021 11:12am February 16, 2025 9:23am bp Start: 08-30-2021 take 20 mg by mouth at bedtime Olmesartan Active 20 MG PO AT BEDTIME August 30, 2021 11:12am Start: 01-26-2020 End: 08-30-2021 take 1 tablet by mouth once daily Olmesartan 40 mg tablet Discontinued 40 mg PO DAILY April 22, 2020 12:00am August 30, 2021 11:13am Start: 10-13-2019 End: 04-22-2020 take 1 tablet by mouth twice daily Olmesartan 20 mg tablet Discontinued 20 mg PO TWICE A DAY 60 11 October 13, 2019 1:00am October 13, 2019 2:42pm Start: 10-13-2019 End: 10-13-2019 take 1 tablet by mouth once daily Olmesartan 40 mg tablet Discontinued 40 mg PO DAILY October 13, 2019 1:00am October 13, 2019 2:38pm Start: 07-30-2019 End: 10-13-2019 take 10 mg by mouth once daily Olmesartan 20 MG tablet Discontinued 10 mg PO DAILY July 30, 2019 1:00am October 13, 2019 2:14pm Start: 07-30-2019 End: 10-13-2019 take 10 mg by mouth once daily Olmesartan Discontinued 10 MG PO DAILY July 30, 2019 1:00am October 13, 2019 2:14pm Start: 09-20-2018 End: 04-29-2019 Olmesartan (Benicar) 20 mg t ablet Discontinued 10 mg PO .HOLD 90 3 April 29, 2019 10:02am April 29, 2019 11:04am Start: 07-01-2018 End: 09-20-2018 take 0.5 tablet by mouth once daily Olmesartan (Benicar) 20 mg tablet Discontinued 20 mg PO DAILY 90 1 August 28, 2018 9:46am September 20, 2018 3:27pm Take 1/2 tablet daily. Comment on above: TAKE 1 TABLET BY RUDY TH EVERY DAY [place]-3 Fatty Acids (3 sources) Start: 04-27-2022 take 1000 mg by mouth once daily [place]-3 Fatty Acids Active 1000 MG PO DAILY April 26, 2022 11:00pm Start: 04-27-2022 take 1000 mg by mouth once ketty ly [place]-3 Fatty Acids Active 1000 MG PO DAILY April 27, 2022 12:00am ondansetron 4 mg disintegrating oral tablet (20 sources) Serotonin-3 Receptor Antagonist Start: 11-21-2022 take 4 mg by mouth every eight hours as needed Ondansetron Active 4 MG PO EVERY 8 HOURS NEEDED November 21, 2022 12:00am Start: 02-02-2018 End: 02-19-2018 take 1 tablet by mouth every eight hours as needed for nausea Ondansetron 4 MG tablet Discontinued 4 mg PO EVERY 8 HOURS NEEDED as needed for Nausea February 02, 2018 12:00am February 19, 2018 4:46pm prasterone 50 mg oral capsule (3 sources) Start: 04-27-2022 take 1 capsule by mouth once daily Prasterone (Dhea) (Dhea) 50 mg capsule Active 50 MG PO DAILY April 26, 2022 11:00pm Vitamin B Complex (7 sources) Start: 06-21-2023 take 1 tablet by mouth once daily Vitamin B Complex Active 1 TABLET PO DAILY June 21, 2023 1:00am Start: 06-21-2023 take 1 tablet by mouth once da [place] Vitamin B Complex Active 1 TABLET PO DAILY June 21, 2023 12:00am Start: 06-19-2013 take 1 tablet by mouth once da [place] vitamin b complex (B COMPLETE) tab Take 1 tablet by mouth once daily. 0 06/19/2013 Active Comment on above: Take 1 tablet by [facility] once daily. Vitamin B Complex tablet (2 sources) Start: 06-21-2023 Vitamin B Complex tablet Active 1 {tbl} PO DAILY June 21, 2023 1:00am vitamin Start: 06-21-2023 Vitamin B Comp bernardo tablet Active 1 {tbl} PO DAILY June 21, 2023 1:00am Completed/Discontinued Medications Medication Drug Class(es) Dates Sig (Normalized) Sig (Original) benzonatate 100 mg oral capsule (3 sources) Non-narcotic Antitussive Start: 08-21-2022 take 1 capsule by mouth every eight hours as needed benzonatate (TESSALON PERLES) 100 mg capsule Take 1 capsule by mouth three times daily as needed for cough. 12 capsule 0 08/21/2022 Active Comment on above: Take 1 capsule by [facility] three times daily as needed for cough. calcium carbonate 1000 mg oral tablet (3 sources) Start: 06-19-2013 take 3 tablets by mouth once daily Calcium Carbonate 390 mg (1,000 mg) tab Take 3 tablets by mouth once daily. 0 06/19/2013 Active Comment on above: Take 3 tablets by [facility] once daily. chlorthalidone 25 mg oral tablet (20 sources) Thiazide-like Diuretic Start: 02-02-2018 End: 07-01-2018 take 1 tablet by mouth once daily Chlorthalidone 25 mg tablet Discontinued 25 mg PO daily 90 1 February 19, 2018 5:21pm July 01, 2018 11:09am Start: 02-02-2018 End: 02-19-2018 Chlorthalidone 25 MG tablet Discontinued February 02, 2018 12:00am February 19, 2018 4:45pm Start: 01-28-2018 End: 02-19-2018 Chlorthalidone 25 mg tablet Discontinued 12.5 mg PO daily 30 January 28, 2018 4:02pm February 19, 2018 5:23pm Start: 01-28-2018 End: 02-19-2018 take 12.5 mg by mouth once daily Chlorthalidone Discontinued 12.5 MG PO daily January 28, 2018 4:02pm February 19, 2018 5:23pm Start: 01-28-2018 End: 01-28-2018 take 1 tablet by mouth once daily Chlorthalidone 25 mg tablet Discontinued 25 mg PO daily 30 1 January 28, 2018 12:00am January 28, 2018 4:03pm ciprofloxacin 500 mg oral tablet (16 sources) Quinolone Antimicrobial Start: 06-24-2024 End: 07-23-2024 take 1 tablet by mouth twice daily Ciprofloxacin Hcl 500 mg tablet Discontinued 500 mg PO TWICE A DAY 6 0 June 24, 2024 1:00am July 23, 2024 9:14am Start: 11-21-2022 End: 11-23-2022 take 1 tablet by mouth twice daily Ciprofloxacin Hcl (Cipro) 500 mg tablet Discontinued 500 mg PO TWICE A DAY 20 0 November 21, 2022 12:00am November 23, 2022 3:52pm clobetasol propionate 0.0005 mg/mg topical ointment (20 sources) Corticosteroid Start: 09-13-2023 End: 01-09-2024 Clobetasol 0.05 % ointment Discontinued 1 NMA TOPICAL NEEDED 10 12January 03, 2024 10:56am January 09, 2024 9:03am health Start: 06-21-2023 End: 09-13-2023 Clobetasol 0.05 % ointment D iscontinued 1 NMA TOPICAL NEEDED June 21, 2023 1:00am September 13, 2023 10:54am health Start: 11-23-2022 End: 06-20-2023 Clobetasol 0.05 % ointment D iscontinued 0 .ROUTE .COMPLEX November 23, 2022 3:51pm June 20, 2023 9:53pm personal APPLY TOPICALLY TO AFFECTEDAREA AT BEDTIME. MASSAGE IN GENTLY Start: 12-05-2021 End: 11-23-2022 Clobetasol 0.05 % ointment D iscontinued 0 .ROUTE .COMPLEX 09 11May 09, 2022 12:32pm November 23, 2022 3:52pm APPLY TOPICALLY TO AFFECTEDAREA AT BEDTIME. MASSAGE IN GENTLY Start: 07-18-2021 End: 09-13-2023 Clobetasol 0.05 % ointment D iscontinued 1 NMA TOPICAL every day in the morning and in the evening July 18, 2021 1:00am December 05, 2021 10:02am Start: 05-17-2020 End: 06-14-2020 Clobetasol 0.05 % ointment D iscontinued 0 .ROUTE .COMPLEX 30 May 17, 2020 9:43am June 14, 2020 5:17pm APPLY TOPICALLY TO AFFECTEDAREA AT BEDTIME. MASSAGE IN GENTLY Start: 05-17-2020 End: 06-14-2020 Clobetasol Discontinued 0 .R OUTE .COMPLEX May 17, 2020 9:43am June 14, 2020 5:17pm APPLY TOPICALLY TO AFFECTEDAREA AT BEDTIME. MASSAGE IN GENTLY Start: 12-31-2019 End: 05-17-2020 Clobetasol 0.05 % cream Disc ontinued 1 NMA TOPICAL .COMPLEX 15 December 31, 2019 12:00am May 17, 2020 9:43am 1 applic TOPICAL apply thin layer as directed bid X 2 weeks then daily X 2 weeks; apply thin layer; massage in to cover area Start: 10-31-2018 End: 06-17-2019 Clobetasol 0.05 % ointment D iscontinued 1 NMA TOPICAL AT BEDTIME 09 11October 31, 2018 12:11pm June 17, 2019 1:26pm apply thin layer; massage gently into affected area Start: 01-24-2018 End: 10-31-2018 Clobetasol 0.05 % ointment D iscontinued 1 NMA TOPICAL AT BEDTIME 09 11April 24, 2018 12:49pm October 31, 2018 12:11pm apply thin layer; massage gently into affected area Start: 01-24-2018 End: 06-17-2019 Clobetasol Discontinued 1 AP PLIC TOPICAL AT BEDTIME October 31, 2018 12:11pm June 17, 2019 1:26pm apply thin layer; massage gently into affected area Comment on above: APPLY THIN LAYER TWI CE A DAY X 2 WEEKS THEN DAILY X2 WEEKS APPLY THIN LAYER MASSAGE IN TO COVER AREA clopidogrel 75 mg oral tablet (17 sources) P2Y12 Platelet Inhibitor Start: 9 End: 9 take 1 tablet by mouth once daily Clopidogrel (Plavix) 75 mg tablet Discontinued 75 mg PO .COMPLEX 30 February 06, 2019 12:00am February 10, 2019 8:52pm 75 mg PO 4 tablets by mouth(300 mg) today as loading dose then 1 tablet daily for heart cath on 02/10/19; doxycycline monohydrate 100 mg oral capsule (17 sources) Tetracycline-class Drug Start: 7 End: 8 take 1 capsule by mouth twice daily Doxycycline Monohydrate 100 MG capsule Discontinued 100 mg PO TWICE A DAY January 24, 2017 12:00am January 08, 2018 3:12pm estradiol 0.1 mg/ml vaginal cream (20 sources) Estrogen Start: 2 End: 2 Estradiol 0.01 % (0.1 mg/gram) cream Discontinued 0 VAGINAL .COMPLEX 42.5 2 August 16, 2021 1:00am December 21, 2021 4:24pm small amount as directed vaginal every other day X 4 weeks then twice a week; Start: 08-16-2021 End: 12-21-2021 Estradiol Discontinued 0 VAG INAL .COMPLEX 42.5 August 16, 2021 1:00am December 21, 2021 4:24pm small amount as directed vaginal every other day X 4 weeks then twice a week; fluconazole 150 mg oral tablet (20 sources) Azole Antifungal Start: 07-11-2021 End: 07-18-2021 take 1 tablet by mouth once Fluconazole (Diflucan) 150 mg tablet Discontinued 150 mg PO ONCE 1 July 12, 2021 11:33am July 18, 2021 12:52pm as a single dose losartan potassium 100 mg oral tablet (20 sources) Angiotensin 2 Receptor Dayo Start: 01-08-2018 End: 07-31-2018 take 1 tablet by mouth once daily Losartan 100 mg tablet Discontinued 100 mg PO daily 90 February 19, 2018 5:22pm July 31, 2018 2:21pm On Hold: Order Changed Start: 08-18-2014 End: 01-08-2018 take 2 tablets by mouth once daily Losartan 50 MG tablet Discontinued 100 mg PO DAILY August 18, 2014 1:00am January 08, 2018 3:12pm Start: 08-18-2014 End: 01-08-2018 take 100 mg by mouth once daily Losartan Discontinued 100 MG PO DAILY August 18, 2014 1:00am January 08, 2018 3:12pm metroNIDAZOLE 500 mg oral tablet (20 sources) Nitroimidazole Antimicrobial Start: 11-21-2022 End: 11-23-2022 take 1 tablet by mouth three times daily Metronidazole 500 mg tablet Discontinued 500 mg PO THREE TIMES A DAY 30 10 0 November 21, 2022 12:00am November 23, 2022 3:52pm Start: 03-21-2018 End: 03-28-2018 take 1 tablet by mouth twice daily Metronidazole (Flagyl) 500 mg tablet Discontinued 500 mg PO TWICE A DAY 14 7 0 March 21, 2018 12:00am March 27, 2018 12:00am March 28, 2018 12:06am miconazole nitrate 0.02 mg/mg topical powder (17 sources) Azole Antifungal Start: 05-01-2020 End: 06-14-2020 Miconazole Nitrate 2 % powder Discontinued 1 NMA TOPICAL TWICE A DAY 43 0 May 01, 2020 12:00am June 14, 2020 5:17pm omega-3 fatty acids 1,000 mg cap (3 sources) Start: 09-13-2012 take 5 capsules by mouth once daily omega-3 fatty acids 1,000 mg cap Indications: Hyperlipidemia Take 5 capsules by mouth once daily. 0 09/13/2012 Active Comment on above: Take 5 capsules by out once daily. microencapsulated potassium chloride 20 meq extended release oral tablet (20 sources) Start: 07-30-2019 End: 11-23-2022 take 1 tablet by mouth once daily Potassium Chloride (Klor-Con M20) 20 mEq tablet,ER particles/crystals Discontinued 0 .ROUTE .COMPLEX 90 December 30, 2019 1:33pm June 14, 2020 5:32pm TAKE 1 TABLET BY MOUTH EVERY DAY Start: 06-19-2018 End: 05-25-2019 take 1 tablet by mouth once daily Potassium Chloride (Klor-Con M20) 20 mEq tablet,ER particles/crystals Discontinued 0 .ROUTE .COMPLEX 90 March 05, 2019 3:52pm May 25, 2019 7:23pm TAKE 1 TABLET BY MOUTH EVERY DAY Start: 02-19-2018 End: 07-01-2018 Potassium Chloride (Klor-Con M10) 10 mEq tablet,ER particles/crystals Discontinued 10 meq PO daily 90 1 April 24, 2018 9:24am July 01, 2018 11:06am take 1 tablet by rudy th once daily potassium chloride (KLOR-CON M20 ORAL) Take 1 tablet by mouth once daily. 0 Active Comment on above: Take 1 tablet by rudy th once daily. sulfamethoxazole 800 mg / trimethoprim 160 mg oral tablet (17 sources) Dihydrofolate Reductase Inhibitor Antibacterial, Sulfonamide Antimicrobial Start: 01-24-2017 End: 01-08-2018 Sulfamethoxazole-Trime thoprim 1 TABLET tablet Discontinued 1 {tbl} PO TWICE A DAY 10 January 24, 2017 12:00am January 08, 2018 3:11pm Start: 01-24-2017 End: 01-08-2018 take 1 tablet by mouth twice daily Sulfamethoxazole-Trimethoprim Discontinu ed 1 TABLET PO TWICE A DAY January 24, 2017 12:00am January 08, 2018 3:11pm ubidecarenone 10 mg oral capsule (12 sources) Start: 06-21-2023 End: 08-14-2024 take 1 capsule by mouth once Coenzyme Q10 10 mg capsule Discontinued mg PO June 21, 2023 1:00am August 14, 2024 11:53am supplement Start: 04-27-2022 Coenzyme Q10 ( Ultra Coq10) 75 mg capsule Active 75 MG PO DAILY April 26, 2022 11:00pm coenzyme Q10 (CO Q-10) 100 mg cap capsule Take 100 mg by mouth twice daily. 0 Active Comment on above: Take 100 mg by mouth twice daily. valsartan 40 mg oral tablet (17 sources) Angiotensin 2 Receptor Dayo Start: 9 End: 9 take 1 tablet by mouth once daily Valsartan (Diovan) 40 mg tablet Discontinued 40 mg PO DAILY 90 January 10, 2019 12:00am February 04, 2019 11:41am Vitamin B Complex (B Complex-Vitamin B12) tablet (7 sources) Start: 3 End: Vitamin B Complex (B Complex-Vitamin B12) tablet Discontinued 1 {tbl} PO DAILY June 20, 2023 1:00am February 25, 2024 9:01am vitamin Start: 06-20-2023 End: 02-25-2024 Vitamin B Complex (B Complex -Vitamin B12) tablet Discontinued 1 {tbl} PO DAILY June 20, 2023 1:00am February 25, 2024 9:01am Start: 06-20-2023 take 1 tablet by rudy th once daily Vitamin B Complex (B Complex-Vitamin B12) tablet Active 1 TABLET PO DAILY June 20, 2023 1:00am Start: 06-20-2023 take 1 tablet by rudy th once daily Vitamin B Complex (B Complex-Vitamin B12) tablet Active 1 TABLET PO DAILY June 20, 2023 12:00am Problems Active Problems Problem Classification Problem Date Documented Da te Episodic/Chronic Anxiety disorders (17 sources) Acute stress disorder; Translations: [Acute stress reaction] 07-30-2019 Chronic Comment on above: celexa ordered, enco uraged counseling, undergoing open heart surgery soon. Aortic; peripheral; and visceral artery aneurysms (10 sources) Dilatation of aorta; Translations: [Aortic ectasia, unspecified site] Onset: 9 07-17-2019 Chronic Comment on above: 4.57 cm per CTA on ; Cardiac dysrhythmias (11 sources) Palpitations; Translations: [Palpitations] 02-22-2023 Episodic Conditions associated with dizziness or vertigo (17 sources) Vertigo; Translations: [Dizziness and giddiness] 04-30-2019 Episodic Conduction disorders (17 sources) First degree atrioventricular block; Translations: [Atrioventricular block, first degree] 04-29-2019 Chronic Disorders of lipid metabolism (20 sources) Hyperlipidemia; Translations: [Hyperlipidemia, unspecified] Chronic Diverticulosis and diverticulitis (20 sources) Diverticulitis; Translations: [Diverticulitis of intestine, part unspecified, without perforation or abscess without bleeding] 11-21-2022 Chronic Essential hypertension (20 sources) Essential hypertension; Translations: [Essential (primary) hypertension] Onset: 3 Chronic Comment on above: CONTROLLED ON MED Heart valve disorders (20 sources) Aortic incompetence, non-rheumatic ; Translations: [Nonrheumatic aortic (valve) insufficiency] Onset: 7 Chronic Comment on above: Moderately SEVERE (3 +) per ALONDRA 02/10/2019;Mild to Moderate (1-2+) per echo 01/24/2018, RVSP 27mmhg. EF 65%. Malaise and fatigue (17 sources) Fatigue; Translations: [Other fatigue] 07-30-2019 Episodic Menopausal disorders (17 sources) Atrophic vaginitis; Translations: [Postmenopausal atrophic vaginitis] 07-18-2021 Chronic Nonspecific chest pain (17 sources) Non-cardiac chest pain; Translations: [Other chest pain] 07-26-2021 Episodic Other acquired deformities (17 sources) Scoliosis of lumbar spine; Translations: [Scoliosis, unspecified] 10-11-2021 Chronic Other bone disease and musculoskeletal deformities (20 sources) Segmental and somatic dysfunction; Translations: [Segmental and somatic dysfunction of lumbar region] 02-07-2018 Episodic Other gastrointestinal disorders (9 sources) History of diverticulitis; Translations: [Personal history of other diseases of the digestive system] 12-28-2022 Episodic Other gastrointestinal disorders (2 sources) Acute diarrhea; Translations: [Diarrhea, unspecified] 07-02-2024 Episodic Other lower respiratory disease (17 sources) Dyspnea on exertion; Translations: [Other forms of dyspnea] 04-29-2019 Episodic Other nutritional; endocrine; and metabolic disorders (17 sources) Obesity; Translations: [Obesity, unspecified] 07-30-2019 Chronic Other nutritional; endocrine; and metabolic disorders (3 sources) Obese class I; Translations: [Obesity, unspecified] Onset: 9 07-17-2019 Chronic Other screening for suspected conditions (not mental disorders or infectious disease) (2 sources) Computed tomography result abnormal; Translations: [Abnormal findings on diagnostic imaging of other specified body structures] 07-23-2024 Chronic Comment on above: malrotation of SB - h/o lysis of adhesions in 2011bowel resection as an Other skin disorders (19 sources) Lichen sclerosus et atrophicus; Translations: [Lichen sclerosus et atrophicus] Chronic Comment on above: restart clobetesol Other upper respiratory infections (19 sources) Upper respiratory infection; Translations: [Acute upper respiratory infection, unspecified] Episodic Residual codes; unclassified (20 sources) History of supracervical hysterectomy; Translations: [Acquired absence of uterus with remaining cervical stump] Onset: 3 09-25-2012 Episodic Residual codes; unclassified (13 sources) Other specified health status; Translations: [Failure of outpatient treatment] 11-23-2022 Episodic Spondylosis; intervertebral disc disorders; other back problems (17 sources) Backache; Translations: [Dorsalgia, unspecified] 10-19-2021 Episodic Syncope (17 sources) Near syncope; Translations: [Syncope and collapse] 04-30-2019 Episodic Thyroid disorders (1 source) Other specified hypothyroidism; Translations: [Other specified hypothyroidism] Onset: 04-14-202 5 Chronic Unclassified (2 sources) Thoracic aortic aneurysm, without rupture, unspecified; Translations: [Thoracic aortic aneurysm, without rupture, unspecified] Onset: 5 Viral infection (1 source) Viral disease; Translations: [Viral infection, unspecified] Episodic Past or Other Problems Problem Classification Problem Date Documented Da te Episodic/Chronic Abdominal pain (19 sources) Generalized abdominal pain; Translations: [Generalized abdominal pain] Onset: 6 11-08-2015 Episodic Intestinal obstruction without hernia (20 sources) Small bowel obstruction; Translations: [Unspecified intestinal obstruction, unspecified as to partial versus complete obstruction] Onset: 4 12-25-2013 Episodic Other and unspecified benign neoplasm (3 sources) Benign neoplasm of colon; Translations: [Benign neoplasm of colon, unspecified] Onset: 3 10-11-2012 Episodic Other gastrointestinal disorders (5 sources) Personal history of other diseases of the digestive system; Translations: [Personal history of other diseases of digestive system] Onset: 1 02-24-2011 Episodic Other gastrointestinal disorders (1 source) Diarrhea, unspecified; Translations: [Diarrhea, unspecified] Onset: 4 Episodic Other screening for suspected conditions (not mental disorders or infectious disease) (20 sources) Prolonged QT interval; Translations: [Abnormal electrocardiogram [ECG] [EKG]] Onset: 3 09-26-2012 Episodic Residual codes; unclassified (17 sources) History of cardiac catheterization; Translations: [Other specified postprocedural states] Onset: 9 04-29-2019 Episodic Comment on above: Normal coronary thuy caleb; Normal LV size, wall motion,and systolic function;Aortic Valve Insufficiency Moderate to severe; The patient has normal pulmonary hemodynamics.Aortic Root dilated. RECOMMENDATIONS: Surgery consult for Valve Replacement and aortic root surgeryPt to notify Dr Yi regarding hospital to refer for AVR and Aortic root replacement. Residual codes; unclassified (1 source) Flushing; Translations: [Flushing] Onset: 5 Episodic Unclassified (17 sources) History of congential bowel malrotation 04-29-2019 Results Test Name Value Interpretation Reference Range Facility Cardiology Visit Reporton Cardiology Visit Report [facility] [address] [place] [address] OFFICE VISIT Date of Service: 02/16/25 MR#: [id number] Acct: [id number] Name: IVORY IYER Rep #: [id number] : 1960 Provider: EDY Valdes Age/Sex: 64/F Location[place] [facility] Status: Signed HPI HPI History of Present Illness Details: Ivory Iyer is a 64-year-old female who presents to office today for follow-up for monitoring her cardiovascular health. She has a history of hypertension, aortic valve stenosis/insufficiency, hyperlipidemia and thoracic aortic aneurysm. Upon presentation today, patient reports fatigue and weakness with climbing one flight of stairs. She finds herself having to take deep breaths after climbing a flight of stairs. This has been occurring for about a month now. She reports weight gain and is unsure if this is contributing. She reports lightheadedness and dizziness that can occur with activity or at rest. She experiences palpitations described as a fast heart beat that may happen twice a week at rest and resolves after a few seconds. She can walk 12,000 steps a day or ride a bike without any associated symptoms or anginal symptoms. Further ROS below. Intake Vital Signs 09/04/24 08:34 02/16/25 09:21 Height 5 ft 7 in 5 ft 7 in Weight: 200 lb BMI 31.3 BP 138/82 H Blood Pressure Location Lt brachial Position Sitting Respiration 18 Intake Visit Reasons: 6 M Snow Removal/Plowing Required: No Accompanied by: Self Is patient in pain?: No Allergies hydrochlorothiazide Adverse Reaction (Severe, Verified 09/04/24 10:13) SEVERE HYPOKALEMIA, hospitalized for it bee venom protein (honey bee) Adverse Reaction (Verified 09/04/24 10:13) Swelling Medications ???Medication ???Instructions ???Recorded ???Confirmed ???Type potassium chloride 20 mEq 20 meq PO DAILY potassium 11/23/22 02/16/25 History tablet,extended supplement release(part/cryst) (Klor-Con M) iodine 150 mcg tablet 150 mcg PO DAILY supplement 02/16/25 History multivitamin (Daily Multi-Vitamin 1 tab PO DAILY vitamin 06/20/23 0 02/16/25 History tablet) cholecalciferol (vitamin D3) 1 tab PO DAILY vitamin 06/21/23 History vitamin B complex 1 tab PO DAILY vitamin 06/21/23 History clobetasol 0.05 % topical ointment 1 applic topical [facility] #30 01/09/24 02/16/25 Rx grams omega 4-xkx-lsr-fish oil 300 1 cap PO DAILY 02/25/24 02/16/25 H istory mg-1,000 mg capsule (Fish Oil) biotin 1 mg capsule 1 mg PO QDAY 09/04/24 02/16/25 His tory coenzyme Q10 [Co Q-10] PO DAILY 09/04/24 02/16/25 History levothyroxine 75 mcg capsule 75 mcg PO QDAY 02/16/25 02/16/25 H istory olmesartan 40 mg tablet 40 mg PO QHS bp 02/16/25 02/16/25 History Have you fallen in the past year?: No PFSH Medical History (Updated 02/16/25 @ 13:27 by EDY Valdes) History of diverticulitis of colon Back pain Scoliosis of lumbar spine Non-cardiac chest pain Atrophic vaginitis Acute stress reaction Segmental and somatic dysfunction of pelvic region Segmental and somatic dysfunction of lumbar region Obesity Hyperlipidemia Lichen sclerosus et atrophicus Palpitations Cellulitis, perineum AVD (aortic valve disease) Aortic root dilatation Wears glasses Post-menopausal Anxiety Former smoker History of echocardiogram History of transesophageal echocardiography (ALONDRA) Cardiology follow-up encounter Hx of small bowel obstruction Failure of outpatient treatment Essential hypertension Fatigue Dyspnea on exertion Abnormal EKG Prolonged QT interval First degree AV block Obesity Nonrheumatic aortic valve insufficiency Surgical History History of hysterectomy, supracervical History of resection of small bowel History of cardiac catheterization History of right and left heart catheterization (02/10/19) History of bowel resection H/O total hysterectomy History of appendectomy Family History Uncle Diabetes Aunt Diabetes Social History Smoking Status: Former smoker quit date: 08/13/12 pack-years: 10 alcohol intake: current details: social substance use type: does not use caffeine: Yes what type of physical activity do you participate in: bicycling and yoga frequency: 5-6 times per week seatbelt use: always do you feel safe at home: Yes 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 Normal [facility] Dexa Bone Density Studyon Dexa Bone Density Study [facility] Imaging Services [address] [place] [address] [id number] Dexa Bone Density Study MR#: [id number] Acct: [id number] Name: IVORY IYER Rep #: [id number] : 1960 F 64 From: Christal Morel PCP: Dr. Gavino Melendez MD Status: [facility] Study: Dexa Bone Density Study Date of Exam: 12/09/24 Exam# [id number] Ordering Dr: Gavino Melendez MD PROCEDURE: DEXA BONE DENSITY STUDY 12/09/2024 REASON FOR EXAM: F, age 64 y/o . Postmenopausal. TECHNIQUE: DEXA scan of sites with data reported below. Scanner utilized: WhoJam. REFERENCE LINKS: ISCD Adult Positions COMPARISON: None FINDINGS: BMD and T-SCORES Lumbar spine: 1.091 g/cm2, T-score 0.4 Levels: L1 through L4 Left femoral neck: 0.762 g/cm2, T-score -0.8 Left total hip: 0.987 g/cm2, T-score 0.4 Right femoral neck: 0.701 g/cm2, T-score -1.3 Right total hip: 0.868 g/cm2, T-score -0.6 The World Health Organization has defined the following categories based on bone density: Normal bone density: T-score equal to or greater than -1.0 Osteopenia: T-score between -1.0 and -2.5 Osteoporosis: T-score equal to or less than -2.5 FRAX (or Comparable) Fracture Risk Assessment: 10 Year Probability of Fracture: Major Osteoporotic Fracture: 8.3% Hip Fracture: 0.8% (Note: FRAX is not to be reported in setting of normal range bone density, osteoporosis on DEXA, known history of osteoporosis, prior osteoporotic hip or vertebral fracture, or for any patient undergoing pharmacological treatment for bone loss.) The National Osteoporosis Foundation (NOF) recommends pharmacological treatment for patients with a FRAX 10-year risk of 3% or higher for a hip fracture, or 20% or higher for a major osteoporotic fracture, to prevent osteoporosis and reduce fracture risk. The patient does not meet the pharmacological treatment recommendations for prevention of osteoporosis. BD/Dexa Bone Density Study IMPRESSION: OSTEOPENIA. Recommend follow-up as clinically warranted. Reading Location: [id number] CC: Dr. Gavino Melendez MD Website/Blog Editor: Signed Normal [facility] TSH DL <= 0.005 mIU/L QnOrde red By: Gavino Melendez on 11-21-2024 Thyroid Stimulating Hormone (TSH) 4.600 uIU/mL High 0.300-4.20 0 [facility] TSH Qn 4.600 uIU/mL High 0.300-4.20 0 [facility] Thyroid Stim Hormone (TSH)on 11-21-2024 TSH 4.600 uIU/mL High 0.300-4.20 0 [facility] Comment on above: Order Comment: Order Date: 09/22/24 Order Info: [id number] - TSH Performed By: #### L 501.9520 #### [facility] Laboratory [address] [place], [place], [address] Thyroidon 10-01-2024 Thyroid [facility] Imaging Services [address] [place], [place] [address] Thyroid MR#: [id number] Acct: [id number] Name: IVORY IYER Rep #: [id number] : 1960 F 63 From: Duy bell MD PCP: Dr. Gavino Melendez MD Status: REG CLI Study: Thyroid Date of Exam: 10/01/24 Exam# [id number] Ordering Dr: Gavino Melendez MD PROCEDURE: THYROID REASON FOR EXAM: Palpable abnormality. TECHNIQUE: Thyroid ultrasound COMPARISON: None. FINDINGS: Right thyroid lobe measures 5.2 cm x 1.9 cm x 2.1 cm. Left thyroid lobe measures 3.9 cm x 1.6 cm x 1.7 cm. Isthmus thickness is3 mm. Thyroid Size: Mild enlargement of the right lobe of the thyroid. Background Echotexture: Normal Thyroid Nodules: None There is a 1.4 cm x 0.7 cm x 0.6 cm benign-appearing lymph node in the right side of neck. There are 2 subcentimeter benign-appearing lymph nodes in the left side of the neck. US/Thyroid IMPRESSION: NORMAL THYROID ULTRASOUND Small bilateral benign-appearing cervical lymph nodes. Reading Location: [facility] CC: Dr. Gavino Melendez MD Website/Blog Editor: Signed Normal [facility] PROGESTERONE 4317on 09-27-19 PROGESTERONE <0.1 Normal . [facility] Comment on above: Order Comment: PLEAS E USE GREEN TOP FOR SEND OUT PROG. N Result Comment: Foll icular phase 0.1 - 0.9 Luteal phase 1.8 - 23.9 Ovulation phase 0.1 - 12.0 First trimester 11.0 - 44.3 Second trimester 25.4 - 83.3 Third trimester 58.7 - 214.0 Postmenopausal 0.0 - 0.1 Performed By: #### L 801.2600 #### [facility] Laboratory [facility] [place], [address] Quantitative serum progester one measurement by electrochemiluminescence immunoassay (Ordered By: Gavino Melendez on 09-25-2024 Progesterone Level <0.1 ng/mL . [facility] Comment on above: Follicular phase 0.1 - 0.9 Luteal phase 1.8 - 23.9 Ovulation phase 0.1 - 12.0 First trimester 11.0 - 44.3 Second trimester 25.4 - 83.3 Third trimester 58.7 - 214.0 Postmenopausal 0.0 - 0.1 FSH and LHon 09-19-2024 FSH 40.6 mIU/mL Normal [facility] Comment on above: Order Comment: Order Date: 09/19/24Order Info: [id number] - TSHOrder Info: [id number] - FSHLH Result Comment: NORMAL REFERENCE RANGES FEMALE FOLLICULAR 2.3 - 12.6 mIU/mL MID-CYCLE PEAK 5.2 - 17.5 mIU/mL LUTEAL 1.7 - 12.9 mIU/mL POST-MENOPAUSAL ON MHT 5.9 - 72.8 mIU/mL NOT ON MHT 12.7 - 132.2 mlU/mL MALE 0.7 - 10.8 mIU/mL Performed By: #### L 3100.5055, L501.9520 ####[facility] [id number] [place], [place], [id number] LH 13.6 mIU/mL Normal [facility] Comment on above: Order Comment: Order Date: 09/19/24Order Info: [id number] - TSHOrder Info: [id number] - FSHLH Result Comment: NORMAL REFERENCE RANGES FEMALE FOLLICULAR 1.9 - 26.2 mIU/mL MID-CYCLE PEAK 22.8 - 76.1 mIU/mL LUTEAL 0.6 - 16.6 mIU/mL POST-MENOPAUSAL ON MHT 1.1 - 52.4 mIU/mL NOT ON MHT 8.6 - 61.8 mIU/mL MALE 1.2 - 10.6 mIU/mL Performed By: #### L 3100.5055, L501.9520 ####[facility] [id number] [place], [address] Follicle stimulating hormone (FSH) levelOrdered By: Gavino Melendez on 09-19-2024 Follicle Stimulating Hormone 40.6 mIU/mL [facility] Comment on above: NORMAL REFERENCE RAN GES FEMALE FOLLICULAR 2.3 - 12.6 mIU/mL MID-CYCLE PEAK 5.2 - 17.5 mIU/mL LUTEAL 1.7 - 12.9 mIU/mL POST-MENOPAUSAL ON MHT 5.9 - 72.8 mIU/mL NOT ON MHT 12.7 - 132.2 mlU/mL MALE 0.7 - 10.8 mIU/mL Luteinizing hormone measurem entOrdered By: Gavino Melendez on 09-19-2024 Luteinizing Hormone 13.6 mIU/mL [facility] Comment on above: NORMAL REFERENCE RAN GES FEMALE FOLLICULAR 1.9 - 26.2 mIU/mL MID-CYCLE PEAK 22.8 - 76.1 mIU/mL LUTEAL 0.6 - 16.6 mIU/mL POST-MENOPAUSAL ON MHT 1.1 - 52.4 mIU/mL NOT ON MHT 8.6 - 61.8 mIU/mL MALE 1.2 - 10.6 mIU/mL TSH QnOrdered By: Gavino garcia on 09-19-2024 Thyroid Stimulating Hormone (TSH) 5.590 uIU/mL High 0.358-3.74 0 [facility] Thyroid Stim Hormone (TSH)on 09-19-2024 TSH 5.590 uIU/mL High 0.358-3.74 0 [facility] Comment on above: Order Comment: Order Date: 09/19/24Order Info: [id number] - TSHOrder Info: [id number] - FSHLH Performed By: #### L 3100.5055, L501.9520 ####[facility] [id number], [address] Basic Metabolic Profile (BMP )on 09-10-2024 BUN/CRE 12.2 RATIO Normal 10-20 [facility] Comment on above: Performed By: #### L 500.2500, L500.4100 #### [facility] Laboratory [address] [place], [address] CA,Total 9.5 mg/dL Normal 8.5-10.1 [facility] Comment on above: Performed By: #### L 500.2500, L500.4100 #### [facility] [address] [place], [address] Chloride [Moles/Vol] 106 mmol/L Normal 98-107 [facility] Comment on above: Performed By: #### L 500.2500, L500.4100 #### [facility] [address] [place], [address] CO2 [Moles/Vol] 24.0 mmol/L Normal 21.0-32.0 [facility] Comment on above: Performed By: #### L 500.2500, L500.4100 #### [facility] [address] [place], [address] Creatinine [Mass/Vol] 0.98 mg/dL Normal 0.55-1.02 [facility] Comment on above: Result Comment: The validity of the calculated GFR GFRAA in patients over 70 years has not been determined. Clinical correlation is essential. Performed By: #### L 500.2500, L500.4100 #### [facility] [address] [place], [address] EST GFR - AA 73 mL/min Normal >60 [facility] Comment on above: Result Comment: Afri can Slovenian GFR Calc Performed By: #### L 500.2500, L500.4100 #### [facility] [address] [place], [address] GAP 9 Normal 5-15 [facility] Comment on above: Performed By: #### L 500.2500, L500.4100 #### [facility] [address] [place], [address] GFR/1.73 sq M.predicted among non-blacks MDRD (S/P/Bld) [Vol rate/Area] 60 mL/min/{1.73_m2} Normal >60 [facility] Comment on above: Result Comment: Non- GFR Calc Performed By: #### L 500.2500, L500.4100 #### [facility] [address] [place], [address] Glucose [Mass/Vol] 99 mg/dL Normal 74-106 [facility] Comment on above: Performed By: #### L 500.2500, L500.4100 #### [facility] [address] [place], [address] Potassium [Moles/Vol] 4.2 mmol/L Normal 3.5-5.1 [facility] Comment on above: Performed By: #### L 500.2500, L500.4100 #### [facility] [address] [place], [address] Sodium [Moles/Vol] 139 mmol/L Normal 136-145 [facility] Comment on above: Performed By: #### L 500.2500, L500.4100 #### [facility] [address] [place], [address] Urea nitrogen [Mass/Vol] 12 mg/dL Normal 7-18 [facility] Comment on above: Performed By: #### L 500.2500, L500.4100 #### [facility] [address] [place], [address] Blood urea nitrogen (BUN)/cr eatinine ratioOrdered By: Carlyn Pickard on 09-10-2024 Urea nitrogen/Creatinine [Mass ratio] 12.2 mg/mg 10-20 [facility] Carbon dioxide measurementOr dered By: Carlyn Pickard on 09-10-2024 CO2 [Moles/Vol] 24.0 mmol/L 21.0-32.0 [facility] Chloride measurementOrdered By: Carlyn Pickard on 09-10-2024 Chloride [Moles/Vol] 106 mmol/L 98-107 [facility] Estimated glomerular filtrat ion rate (GFR) AmericanOrdered By: Carlyn Pickard on 09-10-2024 Estimated GFR (MDRD) Amer 73 mL/min >60 [facility] Comment on above: GFR Calc Glomerular filtration rate ( GFR) estimationOrdered By: Carlyn Pickard on 09-10-2024 Estimated GFR (MDRD) Non-Af Amer 60 mL/min >60 [facility] Comment on above: Non- GFR Calc Glucose measurementOrdered B y: Carlyn Jimenezan on 09-10-2024 Glucose [Mass/Vol] 99 mg/dL 74-106 [facility] High density lipoprotein (HD L) measurementOrdered By: Carlyn Pickard on 09-10-2024 Cholesterol in HDL [Mass/Vol] 61 mg/dL >40 [facility] Comment on above: The drugs N-Acetylcy steine and Metamizole may falsely depress this assay. Reference Range HDL <40 mg/dL Low HDL Cholesterol HDL >or= 60 mg/dL High HDL Cholesterol Lipid Profileon 09-10-2024 Cholesterol [Mass/Vol] 281 mg/dL High 200 [facility] Comment on above: Result Comment: <200 mg/dL Desirable 200-240 mg/dL Borderline >240 mg/dL High Risk Performed By: #### L 500.2500, L500.4100 #### [facility] [address] [place], [address] Cholesterol in HDL [Mass/Vol] 61 mg/dL Normal [facility] Comment on above: Result Comment: The drugs N-Acetylcysteine and Metamizole may falsely depress this assay. Reference Range HDL <40 mg/dL Low HDL Cholesterol HDL >or= 60 mg/dL High HDL Cholesterol Performed By: #### L 500.2500, L500.4100 #### [facility] [address] [place], [address] Cholesterol in LDL [Mass/Vol] 194 mg/dL High 0-130 [facility] Comment on above: Performed By: #### L 500.2500, L500.4100 #### [facility] [address] [place], [address] Cholesterol in VLDL [Mass/Vol] 26 mg/dL Normal 5-40 [facility] Comment on above: Performed By: #### L 500.2500, L500.4100 #### [facility] [address] [place], [address] Triglyceride [Mass/Vol] 131 mg/dL Normal [facility] Comment on above: Result Comment: The drugs N-Acetylcysteine and Metamizole may falsely depress this assay. Serum Triglycerides Reference Interval Normal <150 mg/dL Borderline high 150 - 199 mg/dL High 200 - 499 mg/dL Very High > or = 500 mg/dL Performed By: #### L 500.2500, L500.4100 #### [facility] [place], [address] Low density lipoprotein (LDL ) cholesterol measurementOrdered By: Carlyn Pickard on 09-10-2024 Cholesterol in LDL [Mass/Vol] 194 mg/dL High 0-130 [facility] Potassium measurementOrdered By: Carlyn Pickard on 09-10-2024 Potassium [Moles/Vol] 4.2 mmol/L 3.5-5.1 [facility] Serum anion gap measurementO rdered By: Carlyn Pickard on 09-10-2024 Anion gap [Moles/Vol] 9 mmol/L 5-15 [facility] Serum or plasma calcium anuj urement (mass/volume)Ordered By: Carlyn Pickard on 09-10-2024 Calcium [Mass/Vol] 9.5 mg/dL 8.5-10.1 [facility] Serum or plasma cholesterol measurement (mass/volume)Ordered By: Carlyn Pickard on 09-10-2024 Cholesterol [Mass/Vol] 281 mg/dL High <200 [facility] Comment on above: <200 mg/dL Desirable 200-240 mg/dL Borderline >240 mg/dL High Risk Serum or plasma creatinine m easurement (mass/volume)Ordered By: Carlyn Pickard on 09-10-2024 Creatinine [Mass/Vol] 0.98 mg/dL 0.55-1.02 [facility] Comment on above: The validity of the calculated GFR & GFRAA in patients over 70 years has not been determined. Clinical correlation is essential. Serum or plasma urea nitroge n measurement (mass/volume)Ordered By: Carlyn Pickard on 09-10-2024 Urea nitrogen [Mass/Vol] 12 mg/dL 7-18 [facility] Sodium levelOrdered By: Zafar Pickard on 09-10-2024 Sodium [Moles/Vol] 139 mmol/L 136-145 [facility] Triglycerides measurementOrd ered By: Carlyn Pickard on 09-10-2024 Triglyceride [Mass/Vol] 131 mg/dL <199 [facility] Comment on above: The drugs N-Acetylcy steine and Metamizole may falsely depress this assay.Serum Triglycerides Reference Interval Normal <150 mg/dL Borderline high 150 - 199 mg/dL High 200 - 499 mg/dL Very High > or = 500 mg/dL Very low density lipoprotein (VLDL) cholesterol measurementOrdered By: Carlyn Pickard on 09-10-2024 VLDL Cholesterol 26 mg/dL 5-40 [facility] [facility] Visit Reporton Cardiology Visit Report [facility] [address] [place] [address] OFFICE VISIT Date of Service: 09/04/24 MR#: [id number] Acct: [id number] Name: IVORY IYER Rep #: [id number] : 1960 Provider: Dr. Carlyn Pickard MD Age/Sex: 63/F Location[place] [facility] Status: Signed HPI HPI History of Present Illness Details: This pleasant lady with history of hypertension and thoracic aortic aneurysm is here for follow-up visit. Denies any chest pains. No shortness of breath. No palpitations. No orthopnea. No PND. No ankle edema. Intake Vital Signs 06/24/24 18:26 08/14/24 13:48 09/04/24 08:34 Height 5 ft 7 in 5 ft 7 in 5 ft 7 in Weight: 198 lb BMI 31.0 Blood Pressure Location Lt brachial Position Sitting Respiration 18 Pulse Source NIBP Intake Visit Reasons: 6 M FU Snow Removal/Plowing Required: No Accompanied by: Self Is patient in pain?: No Allergies hydrochlorothiazide Adverse Reaction (Severe, Verified 09/04/24 10:13) SEVERE HYPOKALEMIA, hospitalized for it bee venom protein (honey bee) Adverse Reaction (Verified 09/04/24 10:13) Swelling Medications ???Medication ???Instructions ???Recorded ???Confirmed ???Type olmesartan 40 mg tablet 20 mg PO QHS bp 08/30/21 09/04/24 History potassium chloride 20 mEq 20 meq PO DAILY potassium 11/23/22 09/04/24 History tablet,extended supplement release(part/cryst) (Klor-Con M) iodine 150 mcg tablet 150 mcg PO DAILY supplement 06/20/23 09/04/24 History multivitamin (Daily Multi-Vitamin 1 tab PO DAILY vitamin 06/20/23 09/04/24 History tablet) cholecalciferol (vitamin D3) 1 tab PO DAILY vitamin 06/21/23 09/04/24 History vitamin B complex 1 tab PO DAILY vitamin 06/21/23 09/04/24 History clobetasol 0.05 % topical ointment 1 applic topical [facility]30 01/09/24 09/04/24 Rx grams omega 3-ind-rfk-fish oil 300 1 cap PO DAILY 02/25/24 09/04/24 History mg-1,000 mg capsule (Fish Oil) biotin 1 mg capsule 1 mg PO QDAY 09/04/24 09/04/24 History coenzyme Q10 [Co Q-10] PO DAILY 09/04/24 09/04/24 History Ejection fraction %: 65 Have you fallen in the past year?: No PFSH Medical History Abnormal EKG Acute diverticulitis Acute stress reaction Anxiety Aortic root dilatation Atrophic vaginitis AVD (aortic valve disease) Back pain Cardiology follow-up encounter Cellulitis, perineum Diverticulitis, colon Dyspnea on exertion Essential hypertension Failure of outpatient treatment Fatigue First degree AV block Former smoker History of diverticulitis History of diverticulitis of colon History of echocardiogram History of transesophageal echocardiography (ALONDRA) Hx of small bowel obstruction Hyperlipidemia Hypertension Lichen sclerosus et atrophicus Non-cardiac chest pain Nonrheumatic aortic valve insufficiency Obesity Obesity Palpitations Post-menopausal Prolonged QT interval SBO (small bowel obstruction) Scoliosis of lumbar spine Segmental and somatic dysfunction of lumbar region Segmental and somatic dysfunction of pelvic region Small bowel obstruction Wears glasses Surgical History H/O total hysterectomy History of appendectomy History of bowel resection History of cardiac catheterization History of hysterectomy, supracervical History of resection of small bowel History of right and left heart catheterization (02/10/19) Family History Uncle Diabetes Aunt Diabetes Social History Smoking Status: Former smoker quit date: 08/13/12 pack-years: 10 alcohol intake: current details: social substance use type: does not use caffeine: Yes what type of physical activity do you participate in: bicycling and yoga frequency: 5-6 times per week seatbelt use: always do you feel safe at home: Yes 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 Const Const: Negative for fatigue, weakness, headache(s) or weight gain ENT ENT: Negative for headache(s), dizziness, Nosebleed/epistaxis or balance problems Cardio Chest Pain: No Palpitations: Yes (occasional) Edema: None Muscle aches with walking: None Resp Respiratory: Negative for SOB with activity, SOB at rest or SOB orthopnea SOB lying down GI GI: Negative nausea, vomiting or heartburn Musc Musc: Negative for muscle aches/ myalgia, muscle weakness, joint pain or balance problems Neuro Neuro: Negative for dizziness, lightheadedness, near syncope, syncope, headache(s) or weakness Endo Endo: Negative for fatigue Cardiology Exam Const Appearance: comfortable and no acute distress Nutritional Appearance: well nourished Neck Neck: no JVD Sims (more content not included)... Normal [facility] Discharge Instructionon Discharge Instruction [facility] Medical Records Department [address] [place] [address] Instructions for Home/Discharge Instructions 08/16/24 0937 MR#: [id number] Acct: [id number] Name: IVORY IYER Rep #: [id number] : 1960 63 From: Clifton Gregory MD PCP: Dr. Gavino Melendez MD Status:ADM IN Discharge Instructions Diet Discharge Diet: Low fat / Low cholesterol DC O2, CPAP, BIPAP needs Home O2 Discharge instructions: No Dressing / Incision Discharge Activity: Return to Normal Activity Dressing / Incision Call your doctor if you observe: Fever of 101 or Higher, Shortness of breath, Dizziness, Fainting spells, Swelling in the ankles, Chest pain and Increased palpitations (irregular heartbeat) Follow Up Care Test Results: Test results from this visit will be discussed in further detail at your follow-up appointment, if applicable. Discharge Plan Admission Admit Date/Time: 08/14/24 07:33 Attending Provider: Clifton Gregory Primary Care Provider: Gavino Melendez Discharge Orders/Prescriptions Prescriptions: Continued omega 1-uev-exs-fish oil [Fish Oil] 300-1,000 mg capsule 1 cap PO DAILY potassium chloride [Klor-Con M20] 20 mEq tablet,ER particles/crystals 20 meq PO DAILY iodine 150 mcg tablet 150 mcg PO DAILY multivitamin [Daily Multi-Vitamin] Tablet 1 tab PO DAILY cholecalciferol (vitamin D3) [Vitamin D3] 1 tab PO DAILY vitamin B complex Tablet 1 tab PO DAILY olmesartan 40 mg tablet 20 mg PO QHS clobetasol 0.05 % ointment 1 applic TOPICAL PRN Qty: 30 4RF Referrals / Follow Up: Gavino Melendez MD [Primary Care Provider] - Within 1 Week Disposition Disposition (needs filled in before D/C Order can be placed): Home, Self Care 08/16/24 0942 Clifton Gregory MD CC: Dr. Gavino Melendez MD Signed Normal [facility] Absolute neutrophil countOrd ered By: Clifton Gregory on 08-15-2024 Neutrophils (Bld) [#/Vol] 5.8 10*3/uL 2.0-7.7 [facility] Basic Metabolic Profile (BMP )on 08-15-2024 BUN/CRE 14.8 RATIO Normal 10-20 [facility] Comment on above: Performed By: #### L 500.4050, L100.0100 #### [facility] [address] [place], [address] CA,Total 8.4 mg/dL Low 8.5-10.1 [facility] Comment on above: Performed By: #### L 500.4050, L100.0100 #### [facility] [address] [place], [address] Chloride [Moles/Vol] 110 mmol/L High 98-107 [facility] Comment on above: Performed By: #### L 500.4050, L100.0100 #### [facility] [address] [place], [address] CO2 [Moles/Vol] 25.0 mmol/L Normal 21.0-32.0 [facility] Comment on above: Performed By: #### L 500.4050, L100.0100 #### [facility] [address] [place], [address] Creatinine [Mass/Vol] 0.74 mg/dL Normal 0.55-1.02 [facility] Comment on above: Result Comment: The validity of the calculated GFR GFRAA in patients over 70 years has not been determined. Clinical correlation is essential. Performed By: #### L 500.4050, L100.0100 #### [facility] [address] [place], [address] ECRCL 80.09 ml/min Normal [facility] Comment on above: Performed By: #### L 500.4050, L100.0100 #### [facility] [address] [place], [address] EST GFR - AA 100 mL/min Normal >60 [facility] Comment on above: Result Comment: Afri can Slovenian GFR Calc Performed By: #### L 500.4050, L100.0100 #### [facility] [address] [place], [address] GAP 5 Normal 5-15 [facility] Comment on above: Performed By: #### L 500.4050, L100.0100 #### [facility] [address] [place], [address] GFR/1.73 sq M.predicted among non-blacks MDRD (S/P/Bld) [Vol rate/Area] 83 mL/min/{1.73_m2} Normal >60 [facility] Comment on above: Result Comment: Non- GFR Calc Performed By: #### L 500.4050, L100.0100 #### [facility] [address] [place], [address] Glucose [Mass/Vol] 108 mg/dL High 74-106 [facility] Comment on above: Result Comment: Fast ing Glucose result from 100 to 125 mg/dL suggests IMPAIRED HOMEOSTASIS per A.D.A. criteria. Performed By: #### L 500.4050, L100.0100 #### [facility] [address] [place], [address] Potassium [Moles/Vol] 4.0 mmol/L Normal 3.5-5.1 [facility] Comment on above: Performed By: #### L 500.4050, L100.0100 #### [facility] [address] [place], [address] Sodium [Moles/Vol] 140 mmol/L Normal 136-145 [facility] Comment on above: Performed By: #### L 500.4050, L100.0100 #### [facility] [address] [place], [address] Urea nitrogen [Mass/Vol] 11 mg/dL Normal 7-18 [facility] Comment on above: Performed By: #### L 500.4050, L100.0100 #### [facility] [address] [place], [address] Basophil percentageOrdered B y: Clifton Gregory on 08-15-2024 Basophils/100 WBC (Bld) 0.3 % 0-1 [facility] Blood urea nitrogen (BUN)/cr eatinine ratioOrdered By: Clifton Gregory on 08-15-2024 Urea nitrogen/Creatinine [Mass ratio] 14.8 mg/mg 10-20 [facility] CBC W/Diff, Automatedon Absolute Lymph 2.25 X10 3/uL Normal 0.83-4.51 [facility] Comment on above: Performed By: #### L 500.4050, L100.0100 #### [facility] [address] [place], [address] Absolute Neut 5.8 X10 3/uL Normal 2.0-7.7 [facility] Comment on above: Performed By: #### L 500.4050, L100.0100 #### [facility] [address] [place], [address] Basophils/100 WBC (Bld) 0.3 % Normal 0-1 [facility] Comment on above: Performed By: #### L 500.4050, L100.0100 #### [facility] [address] [place], [address] Eosinophils/100 WBC (Bld) 1.0 % Normal 0-5 [facility] Comment on above: Performed By: #### L 500.4050, L100.0100 #### [facility] [address] [place], [address] Erythrocyte distribution width (RBC) [Ratio] 13.7 % Normal 11.6-14.6 [facility] Comment on above: Performed By: #### L 500.4050, L100.0100 #### [facility] [address] [place], [address] Hematocrit (Bld) [Volume fraction] 41.0 % Normal 37-47 [facility] Comment on above: Performed By: #### L 500.4050, L100.0100 #### [facility] [address] [place], [address] Hemoglobin (Bld) [Mass/Vol] 12.8 g/dL Normal 12.0-15.0 [facility] Comment on above: Performed By: #### L 500.4050, L100.0100 #### [facility] [address] [place], [address] IG% 0.300 Normal 0.0-0.9 [facility] Comment on above: Result Comment: IG% - Immature Granulocytes (promyelocytes, myelocytes and metamyelocytes) > 1% indicates that a LEFT SHIFT is Present. Performed By: #### L 500.4050, L100.0100 #### [facility] [address] [place], [address] Lymphocytes/100 WBC (Bld) 25.4 % Normal 19-41 [facility] Comment on above: Performed By: #### L 500.4050, L100.0100 #### [facility] [address] [place], [address] MCH (RBC) [Entitic mass] 28.6 pg Normal 27.0-32.0 [facility] Comment on above: Performed By: #### L 500.4050, L100.0100 #### [facility] [address] [place], [address] MCHC (RBC) [Mass/Vol] 31.2 g/dL Low 32-36 [facility] Comment on above: Performed By: #### L 500.4050, L100.0100 #### [facility] [address] [place], [address] MCV (RBC) [Entitic vol] 91.5 fL Normal 81-99 [facility] Comment on above: Performed By: #### L 500.4050, L100.0100 #### [facility] [address] [place], [address] Monocytes/100 WBC (Bld) 7.8 % Normal 0-10 [facility] Comment on above: Performed By: #### L 500.4050, L100.0100 #### [facility] [address] [place], [address] Neutrophils/100 WBC (Bld) 65.2 % Normal 47-70 [facility] Comment on above: Performed By: #### L 500.4050, L100.0100 #### [facility] [address] [place], [address] Nucleated RBC (Bld) [#/Vol] 0 10*3/uL Normal 0-5 [facility] Comment on above: Performed By: #### L 500.4050, L100.0100 #### [facility] [address] [place], [address] Platelet mean volume (Bld) [Entitic vol] 9.5 fL Normal 6.2-12.0 [facility] Comment on above: Performed By: #### L 500.4050, L100.0100 #### [facility] [address] [place], [address] Platelets (Bld) [#/Vol] 344 10*3/uL Normal 150-450 [facility] Comment on above: Performed By: #### L 500.4050, L100.0100 #### [facility] [address] [place], [address] RBC (Bld) [#/Vol] 4.48 10*6/uL Normal 4.2-5.4 [facility] Comment on above: Performed By: #### L 500.4050, L100.0100 #### [facility] [address] [place], [address] RDW SD 46.5 fl High 35.1-43.9 [facility] Comment on above: Performed By: #### L 500.4050, L100.0100 #### [facility] [address] [place], [address] WBC (Bld) [#/Vol] 8.9 10*3/uL Normal 4.4-11.0 [facility] Comment on above: Performed By: #### L 500.4050, L100.0100 #### [facility] [place], [address] Carbon dioxide measurementOr dered By: Clifton Gregory on 08-15-2024 CO2 [Moles/Vol] 25.0 mmol/L 21.0-32.0 [facility] Chloride measurementOrdered By: Clifton Gregory on 08-15-2024 Chloride [Moles/Vol] 110 mmol/L High 98-107 [facility] Eosinophil percentageOrdered By: Clifton Gregory on 08-15-2024 Eosinophils/100 WBC (Bld) 1.0 % 0-5 [facility] Erythrocyte distribution wid th (RBC) [Ratio]Ordered By: Clifton Gregory on 08-15-2024 Erythrocyte distribution width (RBC) [Entitic vol] 46.5 fL High 35.1-43.9 [facility] Erythrocyte distribution wid th ratioOrdered By: Clifton Gregory on 08-15-2024 Erythrocyte distribution width (RBC) [Ratio] 13.7 % 11.6-14.6 [facility] Estimated glomerular filtrat ion rate (GFR) AmericanOrdered By: Clifton Gregory on 08-15-2024 Estimated GFR (MDRD) Amer 100 mL/min >60 [facility] Comment on above: GFR Calc Estimation of creatinine jacinto aranceOrdered By: Clifton Gregory on 08-15-2024 Estimated Creatinine Clearance Calc 80.09 ml/min [facility] Glomerular filtration rate ( GFR) estimationOrdered By: Clifton Gregory on 08-15-2024 Estimated GFR (MDRD) Non-Af Amer 83 mL/min >60 [facility] Comment on above: Non- GFR Calc Glucose measurementOrdered B y: Clifton Gregory on 08-15-2024 Glucose [Mass/Vol] 108 mg/dL High 74-106 [facility] Comment on above: Fasting Glucose resu lt from 100 to 125 mg/dL suggests IMPAIRED HOMEOSTASIS per A.D.A. criteria. Hematocrit Auto (Bld) [Volum e fraction]Ordered By: Clifton Gregory on 08-15-2024 Hematocrit (Bld) [Volume fraction] 41.0 % 37-47 [facility] Hemoglobin measurementOrdere d By: Clifton Gregory on 08-15-2024 Hemoglobin (Bld) [Mass/Vol] 12.8 g/dL 12.0-15.0 [facility] Immature granulocytes/100 WB C Auto (Bld)Ordered By: Clifton Gregory on 08-15-2024 Immature granulocytes/100 WBC (Bld) 0.300 % 0.0-0.9 [facility] Comment on above: IG% - Immature Granu locytes (promyelocytes, myelocytes and metamyelocytes) > 1% indicates that a LEFT SHIFT is Present. Lymphocytes Auto (Unsp spec) [#/Vol]Ordered By: Clifton Gregory on 08-15-2024 Lymphocytes (Bld) [#/Vol] 2.25 10*3/uL 0.83-4.5 1 [facility] Lymphocytes/100 WBC Auto (Un sp spec)Ordered By: Clifton Gregory on 08-15-2024 Lymphocytes/100 WBC (Bld) 25.4 % 19-41 [facility] MCV (mean corpuscular volume ) determinationOrdered By: Clifton Gregory on 08-15-2024 MCV (RBC) [Entitic vol] 91.5 fL 81-99 [facility] Mean corpuscular hemoglobin (MCH) determinationOrdered By: Clifton Gregory on 08-15-2024 MCH (RBC) [Entitic mass] 28.6 pg 27.0-32.0 [facility] Mean corpuscular hemoglobin concentration (MCHC) determinationOrdered By: Clifton Gregory on 08-15-2024 MCHC (RBC) [Mass/Vol] 31.2 g/dL Low 32-36 [facility] Mean platelet volume determi nationOrdered By: Clifton Gregory on 08-15-2024 Platelet mean volume (Bld) [Entitic vol] 9.5 fL 6.2-12.0 [facility] Monocyte percentageOrdered B y: Clifton Gregory on 08-15-2024 Monocytes/100 WBC (Bld) 7.8 % 0-10 [facility] Neutrophil percentageOrdered By: Clifton Gregory on 08-15-2024 Neutrophils/100 WBC (Bld) 65.2 % 47-70 [facility] Nucleated red blood cell per centageOrdered By: Clifton Gregory on 08-15-2024 Nucleated RBC/100 WBC (Bld) [Ratio] 0 % 0-5 [facility] Platelet countOrdered By: Carolann Gregory on 08-15-2024 Platelets (Bld) [#/Vol] 344 10*3/uL 150-450 [facility] Potassium measurementOrdered By: Clifton Gregory on 08-15-2024 Potassium [Moles/Vol] 4.0 mmol/L 3.5-5.1 [facility] RBC Auto (Bld) [#/Vol]Ordere d By: Clifton Gregory on 08-15-2024 RBC (Bld) [#/Vol] 4.48 10*6/uL 4.2-5.4 [facility] Serum anion gap measurementO rdered By: Clifton Gregory on 08-15-2024 Anion gap [Moles/Vol] 5 mmol/L 5-15 [facility] Serum or plasma calcium anuj urement (mass/volume)Ordered By: Clifton Gregory on 08-15-2024 Calcium [Mass/Vol] 8.4 mg/dL Low 8.5-10.1 [facility] Serum or plasma creatinine m easurement (mass/volume)Ordered By: Clifton Gregory on 08-15-2024 Creatinine [Mass/Vol] 0.74 mg/dL 0.55-1.02 [facility] Comment on above: The validity of the calculated GFR & GFRAA in patients over 70 years has not been determined. Clinical correlation is essential. Serum or plasma urea nitroge n measurement (mass/volume)Ordered By: Clifton Gregory on 08-15-2024 Urea nitrogen [Mass/Vol] 11 mg/dL 7-18 [facility] Sodium levelOrdered By: Gera Gregory on 08-15-2024 Sodium [Moles/Vol] 140 mmol/L 136-145 [facility] White blood cell (WBC) count Ordered By: Cliftonlinsey Gregory on 08-15-2024 WBC (Bld) [#/Vol] 8.9 10*3/uL 4.4-11.0 [facility] Abdomen/Pelvis W IV Cont ONL Yon 08-14-2024 Abdomen/Pelvis W IV Cont ONLY [facility] Imaging Services [address] [place] [address] Abdomen/Pelvis W IV Cont ONLY MR#: [id number] Acct: [id number] Name: IVORY IYER Rep #: [id number] : 1960 F 63 From: Sean Pisano PCP: Dr. Gavino Melendez MD Status: [facility] ER Study: Abdomen/Pelvis W IV Cont ONLY Date of Exam: Exam# [id number] Ordering Dr: Ariel Melendez DO [id number] STUDY: CT ABDOMEN AND PELVIS WITH CONTRAST - URINARY TRACT REASON FOR EXAM: Female, 63 years old. Diffuse abdominal pain RADIATION DOSAGE (If Supplied By Facility): CTDIvol = ( 21.85 ) mGy, DLP = ( 1181.66 ) mGycm TECHNIQUE: IV 100mL Isovue-370 was administered. Transaxial images were obtained from the dome of the diaphragm to the symphysis pubis in the arterial, nephrographic and excretory phases. Multiplanar coronal and sagittal images were reformatted. The protocol utilizes one or more of the following dose reduction techniques: automated exposure control, adjustment of mA and/or kV according to patient size,and/or use of iterative reconstruction technique. COMPARISON: No relevant prior comparison study available FINDINGS: The visualized lung bases are unremarkable. The visualized portions of the heart are within normal limits. Normal liver. Normal gallbladder and extrahepatic biliary system. Normal spleen. Normal pancreas. Normal bilateral adrenal glands. Normal visualized stomach. There are dilated loops of the small intestine with a non-distended colon consistent with a small bowel obstruction. There are multiple colonic diverticula consistent with diverticulosis.. Normal abdominal aorta. No retroperitoneal adenopathy. Normal right kidney. Normal left kidney. Normal urinary bladder. Normal abdominal wall. Normal osseous structures. CT/Abdomen/Pelvis W IV Cont ONLY IMPRESSION: Small bowel obstruction the distal ileum. Electronically Signed: Sean Adorno MD at 6:59 EST Reading Location ID and State: [facility] / [place] Tel , Service support , CC: Dr. Ariel Melendez, DO; Dr. Gavino Melendez MD Website/Blog Editor: Signed Normal [facility] Albumin to globulin ratioOrd ered By: Ariel Melendez on 08-14-2024 Albumin/Globulin [Mass ratio] 0.9 {ratio} 0.9-2.4 [facility] Bacteria LM.HPF (Urine sed) [#/Area]Ordered By: Ariel Melendez on 08-14-2024 Urine Bacteria RARE /hpf None Seen [facility] Bilirubin Test strip Ql (U)O rdered By: Ariel Melendez on 08-14-2024 Bilirubin Ql (U) Negative Negative [facility] Bilirubin, totalOrdered By: Ariel Melendez on 08-14-2024 Bilirubin [Mass/Vol] 0.50 mg/dL 0.20-1.00 [facility] Comment on above: For patients on eltr ombopag therapy, use of Dimension [place] TBIL is not recommended. CBC W/Diff, Automatedon Absolute Lymph 3.29 X10 3/uL Normal 0.83-4.51 [facility] Comment on above: Performed By: #### L 500.4050, L100.0100 #### [facility] [place], [address] Absolute Neut 6.5 X10 3/uL Normal 2.0-7.7 [facility] Comment on above: Performed By: #### L 500.4050, L100.0100 #### [facility] [address] [place], [address] Basophils/100 WBC (Bld) 0.7 % Normal 0-1 [facility] Comment on above: Performed By: #### L 500.4050, L100.0100 #### [facility] [address] [place], [address] Eosinophils/100 WBC (Bld) 1.4 % Normal 0-5 [facility] Comment on above: Performed By: #### L 500.4050, L100.0100 #### [facility] [address] [place], [address] Erythrocyte distribution width (RBC) [Ratio] 13.9 % Normal 11.6-14.6 [facility] Comment on above: Performed By: #### L 500.4050, L100.0100 #### [facility] [address] [place], [address] Hematocrit (Bld) [Volume fraction] 44.6 % Normal 37-47 [facility] Comment on above: Performed By: #### L 500.4050, L100.0100 #### [facility] [address] [place], [address] Hemoglobin (Bld) [Mass/Vol] 14.6 g/dL Normal 12.0-15.0 [facility] Comment on above: Performed By: #### L 500.4050, L100.0100 #### [facility] [address] [place], [address] IG% 0.400 Normal 0.0-0.9 [facility] Comment on above: Result Comment: IG% - Immature Granulocytes (promyelocytes, myelocytes and metamyelocytes) > 1% indicates that a LEFT SHIFT is Present. Performed By: #### L 500.4050, L100.0100 #### [facility] [address] [place], [address] Lymphocytes/100 WBC (Bld) 30.3 % Normal 19-41 [facility] Comment on above: Performed By: #### L 500.4050, L100.0100 #### [facility] [address] [place], [address] MCH (RBC) [Entitic mass] 29.8 pg Normal 27.0-32.0 [facility] Comment on above: Performed By: #### L 500.4050, L100.0100 #### [facility] [address] [place], [address] MCHC (RBC) [Mass/Vol] 32.7 g/dL Normal 32-36 [facility] Comment on above: Performed By: #### L 500.4050, L100.0100 #### [facility] [address] [place], [address] MCV (RBC) [Entitic vol] 91.0 fL Normal 81-99 [facility] Comment on above: Performed By: #### L 500.4050, L100.0100 #### [facility] [address] [place], [address] Monocytes/100 WBC (Bld) 7.9 % Normal 0-10 [facility] Comment on above: Performed By: #### L 500.4050, L100.0100 #### [facility] [address] [place], [address] Neutrophils/100 WBC (Bld) 59.3 % Normal 47-70 [facility] Comment on above: Performed By: #### L 500.4050, L100.0100 #### [facility] [address] [place], [address] Nucleated RBC (Bld) [#/Vol] 0 10*3/uL Normal 0-5 [facility] Comment on above: Performed By: #### L 500.4050, L100.0100 #### [facility] [address] [place], [address] Platelet mean volume (Bld) [Entitic vol] 9.4 fL Normal 6.2-12.0 [facility] Comment on above: Performed By: #### L 500.4050, L100.0100 #### [facility] [address] [place], [address] Platelets (Bld) [#/Vol] 359 10*3/uL Normal 150-450 [facility] Comment on above: Performed By: #### L 500.4050, L100.0100 #### [facility] [address] [place], [address] RBC (Bld) [#/Vol] 4.90 10*6/uL Normal 4.2-5.4 [facility] Comment on above: Performed By: #### L 500.4050, L100.0100 #### [facility] [address] [place], [address] RDW SD 46.5 fl High 35.1-43.9 [facility] Comment on above: Performed By: #### L 500.4050, L100.0100 #### [facility] [address] [place], [address] WBC (Bld) [#/Vol] 10.9 10*3/uL Normal 4.4-11.0 [facility] Comment on above: Performed By: #### L 500.4050, L100.0100 #### [facility] [address] [place], [address] Comprehensive Metabolic Prof ilon 08-14-2024 Albumin [Mass/Vol] 3.5 g/dL Normal 3.2-5.0 [facility] Comment on above: Order Comment: REDRA W. PREVIOUS SPECIMEN REJECTED DUE TO HEMOLYSIS. 08/14/24527 Anthony Black Renetta. Performed By: #### L 500.4050, L501.2450 #### [facility] [address] [place], [address] Albumin/Globulin [Mass ratio] 0.9 {ratio} Normal 0.9-2.4 [facility] Comment on above: Order Comment: REDRA W. PREVIOUS SPECIMEN REJECTED DUE TO HEMOLYSIS. 08/14/24527 Anthony Black Renetta. Performed By: #### L 500.4050, L501.2450 #### [facility] [address] [place], [address] ALK P 87 U/L Normal 45-117 [facility] Comment on above: Order Comment: REDRA W. PREVIOUS SPECIMEN REJECTED DUE TO HEMOLYSIS. 08/14/24527 Anthony Black Renetta. Performed By: #### L 500.4050, L501.2450 #### [facility] [address] [place], [address] ALT [Catalytic activity/Vol] 33 U/L Normal 13-56 [facility] Comment on above: Order Comment: REDRA W. PREVIOUS SPECIMEN REJECTED DUE TO HEMOLYSIS. 08/14/24527 Anthony Black Renetta. Performed By: #### L 500.4050, L501.2450 #### [facility] [address] [place], [address] AST [Catalytic activity/Vol] 40 U/L High 15-37 [facility] Comment on above: Order Comment: REDRA W. PREVIOUS SPECIMEN REJECTED DUE TO HEMOLYSIS. 08/14/24527 Anthony Black Renetta. Result Comment: Mode rate Hemolysis, Result may be falsely increased. Performed By: #### L 500.4050, L501.2450 #### [facility] [address] [place], [address] Bilirubin [Mass/Vol] 0.50 mg/dL Normal 0.20-1.00 [facility] Comment on above: Order Comment: REDRA W. PREVIOUS SPECIMEN REJECTED DUE TO HEMOLYSIS. 08/14/24527 Anthony Jackson. Result Comment: For patients on eltrombopag therapy, use of Dimension [place] TBIL is not recommended. Performed By: #### L 500.4050, L501.2450 #### [facility] [address] [place], [address] BUN/CRE 15.8 RATIO Normal 10-20 [facility] Comment on above: Order Comment: REDRA W. PREVIOUS SPECIMEN REJECTED DUE TO HEMOLYSIS. 08/14/24527 Anthony Jackson. Performed By: #### L 500.4050, L501.2450 #### [facility] [address] [place], [address] CA,Total 8.8 mg/dL Normal 8.5-10.1 [facility] Comment on above: Order Comment: REDRA W. PREVIOUS SPECIMEN REJECTED DUE TO HEMOLYSIS. 08/14/24527 Anthony Jackson. Performed By: #### L 500.4050, L501.2450 #### [facility] [address] [place], [address] Chloride [Moles/Vol] 105 mmol/L Normal 98-107 [facility] Comment on above: Order Comment: REDRA W. PREVIOUS SPECIMEN REJECTED DUE TO HEMOLYSIS. 08/14/24527 Anthony Jackson. Performed By: #### L 500.4050, L501.2450 #### [facility] [address] [place], [address] CO2 [Moles/Vol] 26.0 mmol/L Normal 21.0-32.0 [facility] Comment on above: Order Comment: REDRA W. PREVIOUS SPECIMEN REJECTED DUE TO HEMOLYSIS. 08/14/24527 Anthony Jackson. Performed By: #### L 500.4050, L501.2450 #### [facility] [address] [place], [address] Creatinine [Mass/Vol] 0.95 mg/dL Normal 0.55-1.02 [facility] Comment on above: Order Comment: REDRA W. PREVIOUS SPECIMEN REJECTED DUE TO HEMOLYSIS. 08/14/24527 Anthony Jackson. Result Comment: The validity of the calculated GFR GFRAA in patients over 70 years has not been determined. Clinical correlation is essential. Performed By: #### L 500.4050, L501.2450 #### [facility] [address] [place], [address] ECRCL 67.44 ml/min Normal [facility] Comment on above: Order Comment: REDRA W. PREVIOUS SPECIMEN REJECTED DUE TO HEMOLYSIS. 08/14/24527 Anthony Jackson. Performed By: #### L 500.4050, L501.2450 #### [facility] [address] [place], [address] EST GFR - AA 76 mL/min Normal >60 [facility] Comment on above: Order Comment: REDRA W. PREVIOUS SPECIMEN REJECTED DUE TO HEMOLYSIS. 08/14/24527 Anthony Jackson. Result Comment: Afri can Slovenian GFR Calc Performed By: #### L 500.4050, L501.2450 #### [facility] [address] [place], [address] GAP 8 Normal 5-15 [facility] Comment on above: Order Comment: REDRA W. PREVIOUS SPECIMEN REJECTED DUE TO HEMOLYSIS. 08/14/24527 Anthony Jackson. Performed By: #### L 500.4050, L501.2450 #### [facility] [address] [place], [address] GFR/1.73 sq M.predicted among non-blacks MDRD (S/P/Bld) [Vol rate/Area] 63 mL/min/{1.73_m2} Normal >60 [facility] Comment on above: Order Comment: REDRA W. PREVIOUS SPECIMEN REJECTED DUE TO HEMOLYSIS. 08/14/24527 Anthony Black Renetta. Result Comment: Non- GFR Calc Performed By: #### L 500.4050, L501.2450 #### [facility] [address] [place], [address] Globulin (S) [Mass/Vol] 4.0 g/dL Normal 2.2-4.2 [facility] Comment on above: Order Comment: REDRA W. PREVIOUS SPECIMEN REJECTED DUE TO HEMOLYSIS. 08/14/24527 Anthony Jackson. Performed By: #### L 500.4050, L501.2450 #### [facility] [address] [place], [address] Glucose [Mass/Vol] 121 mg/dL High 74-106 [facility] Comment on above: Order Comment: REDRA W. PREVIOUS SPECIMEN REJECTED DUE TO HEMOLYSIS. 08/14/24527 Anthony Jackson. Result Comment: Fast ing Glucose result from 100 to 125 mg/dL suggests IMPAIRED HOMEOSTASIS per A.D.A. criteria. Performed By: #### L 500.4050, L501.2450 #### [facility] [address] [place], [address] Potassium [Moles/Vol] 5.2 mmol/L High 3.5-5.1 [facility] Comment on above: Order Comment: REDRA W. PREVIOUS SPECIMEN REJECTED DUE TO HEMOLYSIS. 08/14/24527 Anthony Jackson. Result Comment: Mode rate Hemolysis, Result may be falsely increased. Performed By: #### L 500.4050, L501.2450 #### [facility] [address] [place], [address] Sodium [Moles/Vol] 139 mmol/L Normal 136-145 [facility] Comment on above: Order Comment: REDRA W. PREVIOUS SPECIMEN REJECTED DUE TO HEMOLYSIS. 08/14/24527 Anthony Jackson. Performed By: #### L 500.4050, L501.2450 #### [facility] [address] [place], [address] T PROT 7.5 g/dL Normal 6.4-8.2 [facility] Comment on above: Order Comment: REDRA W. PREVIOUS SPECIMEN REJECTED DUE TO HEMOLYSIS. 08/14/24527 Anthony Jackson. Performed By: #### L 500.4050, L501.2450 #### [facility] [address] [place], [address] Urea nitrogen [Mass/Vol] 15 mg/dL Normal 7-18 [facility] Comment on above: Order Comment: REDRA W. PREVIOUS SPECIMEN REJECTED DUE TO HEMOLYSIS. 08/14/24527 Anthony Black White. Performed By: #### L 500.4050, L501.2450 #### [facility] [address] [place], [address] ALB Normal 3.2-5.0 [facility] Comment on above: Result Comment: This specimen has been REJECTED due to Laboratory criteria: Hemolyzed. MUNIRA has been notified of need of recollection. 08/14/24526 Anthony Black White Performed By: #### L 500.4050, L100.0100 #### [facility] [address] [place], [address] ALK P Normal 45-117 [facility] Comment on above: Result Comment: This specimen has been REJECTED due to Laboratory criteria: Hemolyzed. MUNIRA has been notified of need of recollection. 08/14/24526 Anthony Black White Performed By: #### L 500.4050, L100.0100 #### [facility] [address] [place], [address] ALT Normal 13-56 [facility] Comment on above: Result Comment: This specimen has been REJECTED due to Laboratory criteria: Hemolyzed. MUNIRA has been notified of need of recollection. 08/14/24526 Anthony Black White Performed By: #### L 500.4050, L100.0100 #### [facility] [address] [place], [address] AST Normal 15-37 [facility] Comment on above: Result Comment: This specimen has been REJECTED due to Laboratory criteria: Hemolyzed. MUNIRA has been notified of need of recollection. 08/14/24526 Anthony L White Performed By: #### L 500.4050, L100.0100 #### [facility] [address] [place], [address] BUN Normal 7-18 [facility] Comment on above: Result Comment: This specimen has been REJECTED due to Laboratory criteria: Hemolyzed. MUNIRA has been notified of need of recollection. 08/14/24526 Anthony L White Performed By: #### L 500.4050, L100.0100 #### [facility] [address] [place], [address] BUN/CRE Normal 10-20 [facility] Comment on above: Result Comment: This specimen has been REJECTED due to Laboratory criteria: Hemolyzed. MUNIRA has been notified of need of recollection. 08/14/24526 Anthony L White Performed By: #### L 500.4050, L100.0100 #### [facility] [address] [place], [address] CA,Total Normal 8.5-10.1 [facility] Comment on above: Result Comment: This specimen has been REJECTED due to Laboratory criteria: Hemolyzed. MUNIRA has been notified of need of recollection. 08/14/24526 Anthony L White Performed By: #### L 500.4050, L100.0100 #### [facility] [address] [place], [address] CL Normal 98-107 [facility] Comment on above: Result Comment: This specimen has been REJECTED due to Laboratory criteria: Hemolyzed. MUNIRA has been notified of need of recollection. 08/14/24526 Anthony L White Performed By: #### L 500.4050, L100.0100 #### [facility] [address] [place], [address] CO2 Normal 21.0-32.0 [facility] Comment on above: Result Comment: This specimen has been REJECTED due to Laboratory criteria: Hemolyzed. MUNIRA has been notified of need of recollection. 08/14/24526 Anthony Wayne White Performed By: #### L 500.4050, L100.0100 #### [facility] [address] [place], [address] CREAT,SERUM Normal 0.55-1.02 [facility] Comment on above: Result Comment: This specimen has been REJECTED due to Laboratory criteria: Hemolyzed. MUNIRA has been notified of need of recollection. 08/14/24526 Anthony L White Performed By: #### L 500.4050, L100.0100 #### [facility] [address] [place], [address] EST GFR Normal >60 [facility] Comment on above: Result Comment: This specimen has been REJECTED due to Laboratory criteria: Hemolyzed. MUNIRA has been notified of need of recollection. 08/14/24526 Anthony Black White Performed By: #### L 500.4050, L100.0100 #### [facility] [address] [place], [address] EST GFR - AA Normal >60 [facility] Comment on above: Result Comment: This specimen has been REJECTED due to Laboratory criteria: Hemolyzed. MUNIRA has been notified of need of recollection. 08/14/24526 Anthony L White Performed By: #### L 500.4050, L100.0100 #### [facility] [address] [place], [address] GAP Normal 5-15 [facility] Comment on above: Result Comment: This specimen has been REJECTED due to Laboratory criteria: Hemolyzed. MUNIRA has been notified of need of recollection. 08/14/24526 Anthony L White Performed By: #### L 500.4050, L100.0100 #### [facility] [address] [place], [address] GLU Normal 74-106 [facility] Comment on above: Result Comment: This specimen has been REJECTED due to Laboratory criteria: Hemolyzed. MUNIRA has been notified of need of recollection. 08/14/24526 Anthony L White Performed By: #### L 500.4050, L100.0100 #### [facility] [address] [place], [address] Potassium Normal 3.5-5.1 [facility] Comment on above: Result Comment: This specimen has been REJECTED due to Laboratory criteria: Hemolyzed. MUNIRA has been notified of need of recollection. 08/14/24526 Anthony L White Performed By: #### L 500.4050, L100.0100 #### [facility] [address] [place], [address] T BILI Normal 0.20-1.00 [facility] Comment on above: Result Comment: This specimen has been REJECTED due to Laboratory criteria: Hemolyzed. MUNIRA has been notified of need of recollection. 08/14/24526 Anthony L White Performed By: #### L 500.4050, L100.0100 #### [facility] [address] [place], [address] T PROT Normal 6.4-8.2 [facility] Comment on above: Result Comment: This specimen has been REJECTED due to Laboratory criteria: Hemolyzed. MUNIRA has been notified of need of recollection. 08/14/24526 Anthony L White Performed By: #### L 500.4050, L100.0100 #### [facility] [address] [place], [address] Comprehensive Metabolic Profil Normal 136-145 [facility] Comment on above: Result Comment: This specimen has been REJECTED due to Laboratory criteria: Hemolyzed. MUNIRA has been notified of need of recollection. 08/14/24 0527 Anthony Jackson Performed By: #### L 500.4050, L100.0100 #### [facility] [address] [place], [address] Emergency Department Summary on 08-14-2024 Emergency Department Summary [facility] Medical Records Department [address] [place] [address] Emergency Department Summary 08/14/24 MR#: [id number] Acct: [id number] Name: IVORY IYER Rep #: [id number] : 1960 63 From: Ariel Melendez DO PCP: Dr. Gavino Melendez MD Status:REG ER Location: ED HPI History of Present Illness Chief Complaint: Abd Pain Narrative Narrative: Chief complaint and HPI: Abdominal pain. 63-year-old female with past medical history of bowel surgery, HTN, HLD presents for evaluation of diffuse abdominal pain. Onset of symptom around 8 PM. Patient states around 8 PM this evening she developed abdominal pain with associated nausea. She denies any fever, chills, chest pain, shortness of breath, vomiting, dysuria, hematuria. Patient follows with Dr. Ceballos for chronic GI problems. Denies any diarrhea or constipation. Review of systems: See HPI Medications: As listed on the chart Allergies: As listed on the chart PFSH: Per chart Vital signs: As listed on the chart. Reviewed. Physical exam: Gen: A O x3, NAD Head: Normocephalic, atraumatic Eyes: No sclera icterus, conjunctiva clear ENT: Moist mucous membranes Neck: Trachea midline, No JVD CV: RRR, no murmurs, no peripheral edema Resp: Lungs CTA BL, no w/r/c GI: Abd soft, non-distended, mild tenderness to palpation diffusely, + positive voluntary guarding, no rebound or rigidity : No CVA tenderness Musc: Full ROM, no deformity Skin: Warm, dry Neuro: Alert, oriented, grossly intact, sensation intact Psych: Cooperative, appropriate mood and affect [facility] Medical History History of diverticulitis of colon Back pain Scoliosis of lumbar spine Non-cardiac chest pain Atrophic vaginitis Acute stress reaction Segmental and somatic dysfunction of pelvic region Segmental and somatic dysfunction of lumbar region Obesity Hyperlipidemia Lichen sclerosus et atrophicus Palpitations Hypertension Diverticulitis, colon Cellulitis, perineum AVD (aortic valve disease) Aortic root dilatation Wears glasses Post-menopausal Anxiety History of diverticulitis Former smoker History of echocardiogram History of transesophageal echocardiography (ALONDRA) Cardiology follow-up encounter Hx of small bowel obstruction Failure of outpatient treatment Acute diverticulitis Essential hypertension Small bowel obstruction Fatigue Dyspnea on exertion Abnormal EKG Prolonged QT interval First degree AV block SBO (small bowel obstruction) Obesity Nonrheumatic aortic valve insufficiency Home Medications ???Medication ???Instructions ???Recorded ???Last Taken ???Type olmesartan 40 mg tablet 20 mg PO QHS bp 08/30/21 11/22/22 21:00 History potassium chloride 20 mEq 20 meq PO DAILY potassium 11/23/22 11/22/22 21:00 History tablet,extended supplement release(part/cryst) (Klor-Con M) iodine 150 mcg tablet 150 mcg PO DAILY supplement 06/20/23 Unknown History multivitamin (Daily Multi-Vitamin 1 tab PO DAILY vitamin 06/20/23 Unknown History tablet) cholecalciferol (vitamin D3) 1 tab PO DAILY vitamin 06/21/23 Unknown History coenzyme Q10 10 mg capsule mg PO supplement 06/21/23 Unknown History vitamin B complex 1 tab PO DAILY vitamin 06/21/23 Unknown History clobetasol 0.05 % topical ointment 1 applic topical [facility] #30 01/09/24 Unknown Rx grams omega 2-spw-hjn-fish oil 300 1 cap PO DAILY 02/25/24 Unknown History mg-1,000 mg capsule (Fish Oil) Allergy/AdvReac Type Severity Reaction Status Date / Time hydrochlorothiazide AdvReac Severe SEVERE Verified 08/14/24 04:07 HYPOKALEMIA, hospitalized for it bee venom protein (honey bee) AdvReac Swelling Verified 08/14/24 04:07 Family History Uncle Diabetes Aunt Diabetes Surgical History History of hysterectomy, supracervical History of resection of small bowel History of cardiac catheterization History of right and left heart catheterization (02/10/19) History of bowel resection H/O total hysterectomy History of appendectomy Social History Smoking Status: Former smoker quit date: 08/13/12 pack-years: 10 alcohol intake: current details: social substance use type: does not use caffeine: Yes what type of physical activity do you participate in: bicycling and yoga frequency: 5-6 times per week seatbelt use: always do you feel safe at home: Yes 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 Normal [facility] Epithelial cells.squamous LM Ql (Urine sed)Ordered By: Ariel Melendez on 08-14-2024 Epithelial cells.squamous LM.HPF (Urine sed) [#/Area] 0 /[HPF] 5-10 [facility] Glucose Ql (U)Ordered By: Yakov Melendez on 08-14-2024 Urine Glucose (UA) Normal mg/dl Normal [facility] H AND P Exam - [facility] 08-14-2024 H&P Exam - Hospitalist [facility] Medical Records Department [address] [place] [address] H P Exam - Hospitalist 08/14/24 0913 MR#: [id number] Acct: [id number] Name: IVORY IYER Rep #: [id number] : 1960 63 From: Clifton Gregory MD PCP: Dr. Gavino Melendez MD Status:ADM IN Location: MS3 [id number] HPI - General General Date of Admission: 08/14/24 HPI Narrative IVORY IYER, is a 63 F who presents to the hospital with abdominal pain and nausea that started last night around 8 PM. She has a history of small bowel obstructions given her previous abdominal surgery history, she had a volvulus as a child that had surgical repair and that she has had a hysterectomy. CT of the abdomen pelvis shows a transition point in the right lower quadrant in the distal ileum. She is not having any emesis and her stomach does not appear overly enlarged on the CT scan so no NG tube was placed in the ER. [facility] Medical History (Updated 08/14/24 @ 09:[address] Clifton Gregory MD) Small bowel obstruction History of diverticulitis of colon Back pain Scoliosis of lumbar spine Non-cardiac chest pain Atrophic vaginitis Acute stress reaction Segmental and somatic dysfunction of pelvic region Segmental and somatic dysfunction of lumbar region Obesity Hyperlipidemia Lichen sclerosus et atrophicus Palpitations Hypertension Diverticulitis, colon Cellulitis, perineum AVD (aortic valve disease) Aortic root dilatation Wears glasses Post-menopausal Anxiety History of diverticulitis Former smoker History of echocardiogram History of transesophageal echocardiography (ALONDRA) Cardiology follow-up encounter Hx of small bowel obstruction Failure of outpatient treatment Acute diverticulitis Essential hypertension Fatigue Dyspnea on exertion Abnormal EKG Prolonged QT interval First degree AV block SBO (small bowel obstruction) Obesity Nonrheumatic aortic valve insufficiency Home Medications ???Medication ???Instructions ???Recorded ???Last Taken ???Type olmesartan 40 mg tablet 20 mg PO QHS bp 08/30/21 11/22/22 21:00 History potassium chloride 20 mEq 20 meq PO DAILY potassium 11/23/22 11/22/22 21:00 History tablet,extended supplement release(part/cryst) (Klor-Con M) iodine 150 mcg tablet 150 mcg PO DAILY supplement 06/20/23 Unknown History multivitamin (Daily Multi-Vitamin 1 tab PO DAILY vitamin 06/20/23 Unknown History tablet) cholecalciferol (vitamin D3) 1 tab PO DAILY vitamin 06/21/23 Unknown History vitamin B complex 1 tab PO DAILY vitamin 06/21/23 Unknown History clobetasol 0.05 % topical ointment [address] [facility] [employer] #30 01/09/24 Unknown Rx grams omega 8-tol-jem-fish oil 300 1 cap PO DAILY 02/25/24 Unknown History mg-1,000 mg capsule (Fish Oil) Allergy/AdvReac Type Severity Reaction Status Date / Time hydrochlorothiazide AdvReac Severe SEVERE Verified 08/14/24 04:07 HYPOKALEMIA, hospitalized for it bee venom protein (honey bee) AdvReac Swelling Verified 08/14/24 04:07 Family History Uncle Diabetes Aunt Diabetes Surgical History History of hysterectomy, supracervical History of resection of small bowel History of cardiac catheterization History of right and left heart catheterization (02/10/19) History of bowel resection H/O total hysterectomy History of appendectomy Social History Smoking Status: Former smoker quit date: 08/13/12 pack-years: 10 alcohol intake: current details: social substance use type: does not use caffeine: Yes what type of physical activity do you participate in: bicycling and yoga frequency: 5-6 times per week seatbelt use: always do you feel safe at home: Yes 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 Constitutional Constitutional: Denies chills, fatigue, fever(s) or malaise Eyes Eyes: Denies blurry vision ENT HEENT: Denies headache(s) or nasal discharge Cardiovascular Cardiovascular: Denies chest pain, dyspnea on exertion or syncope Respiratory/Chest Respiratory/Chest: Denies cough, shortness of breath at rest or shortness of breath with exertion Gastrointestinal Gastrointestinal: Reports abdominal pain and nausea; Denies constipation, diarrhea or vomiting Genitourinary Genitourinary: Denies dysuria Neurologic Neurologic: Denies focal weakness, numbness or tremor(s) Psychiatric Psychiatric: Denies anxiety or depression Vital Signs Vital Signs Vital Signs: 08/14/24 04:07 08/14/24 04:12 08/14/24 05:26 Temperature 98 F Temperature Source Oral Pulse Rate 74 58 L Respiratory Rate 18 18 Blood Pressure 210/84 H 133/65 H Blood Pressure Mean 126 87 Pulse Ox 99 93 Oxygen Deli (more content not included)... Normal [facility] Ketones Test strip Ql (U)Ord ered By: Ariel Melendez on 08-14-2024 Ketones Ql (U) Negative Negative [facility] Laboratory - Chemistry and C hemistry - challengeOrdered By: Ariel Melendez on 01-02-2025 AST [Catalytic activity/Vol] 40 U/L High 15-37 [facility] Comment on above: Moderate Hemolysis, Result may be falsely increased. Lipaseon 08-14-2024 Lipase [Catalytic activity/Vol] 26 U/L Normal 13-75 [facility] Comment on above: Order Comment: RED W. PREVIOUS SPECIMEN REJECTED DUE TO HEMOLYSIS. 08/14/24 0528 Anthony Black Renetta. Result Comment: Lizy dominique note: LIPASE revised reference range effective 22. New Lipase methodology. Expected to produce lower values than the previous assay method. NEW Reference Range: 13 - 75 U/L Performed By: #### L 500.4050, L501.2450 #### [facility] [address] [place], [place], [id number] Lipase measurementOrdered By : Ariel Melendez on 08-14-2024 Lipase [Catalytic activity/Vol] 26 U/L 13-75 [facility] Comment on above: Please note:LIPASE r evised reference range effective 22. New Lipase methodology. Expected to produce lower values than the previous assay method. NEW Reference Range: 13 - 75 U/L Microscopic analysis of urin e for red blood cells (RBC)Ordered By: Ariel Melendez on 08-14-2024 Urine RBC 0-5 SEEN /hpf 0-5 [facility] Mucus LM Ql (Urine sed)Order ed By: Ariel Melendez on 08-14-2024 Mucus Ql (Urine sed) 0 SEEN /hpf [facility] Nitrite Test strip Ql (U)Ord ered By: Ariel Melendez on 08-14-2024 Nitrite Ql (U) Negative Negative [facility] Protein Test strip Ql (U)Ord ered By: Ariel Melendez on 08-14-2024 Protein Ql (U) 15 mg/dl High Negative [facility] Serum globulin measurementOr dered By: Ariel Melendez on 08-14-2024 Globulin (S) [Mass/Vol] 4.0 g/dL 2.2-4.2 [facility] Serum or plasma alanine dasilva otransferase (ALT) measurementOrdered By: janice Melendez on 08-14-2024 ALT [Catalytic activity/Vol] 33 U/L 13-56 [facility] Serum or plasma albumin anuj urement (mass/volume)Ordered By: [facility] Pepe on 08-14-2024 Albumin [Mass/Vol] 3.5 g/dL 3.2-5.0 [facility] Serum or plasma alkaline maria del rosario sphatase measurementOrdered By: [facility] on 08-14-2024 ALP [Catalytic activity/Vol] 87 U/L 45-117 [facility] Total proteinOrdered By: [facility] on 08-14-2024 Protein [Mass/Vol] 7.5 g/dL 6.4-8.2 [facility] Urinalysis, Completeon 08-14 BACTERIA RARE Normal None Seen [facility] Comment on above: Order Comment: CASI CTOR TO SPECIFY Performed By: #### L 400.0001 ####[facility] [address] [place], [address] EPI,SQUAMOUS 0-5 SEEN Normal 5-10 [facility] Comment on above: Order Comment: CASI CTOR TO SPECIFY Performed By: #### L 400.0001 ####[facility] [address] [place], [address] RBC 0-5 SEEN Normal 0-5 [facility] Comment on above: Order Comment: CASI CTOR TO SPECIFY Performed By: #### L 400.0001 ####[facility] [address] [place], [address] WBC 0-5 SEEN Normal 0-5 [facility] Comment on above: Order Comment: CASI CTOR TO SPECIFY Performed By: #### L 400.0001 ####[facility] [address] [place], [address] Mucus Ql (Urine sed) 0 SEEN Normal [facility] Comment on above: Order Comment: CASI CTOR TO SPECIFY Performed By: #### L 400.0001 ####[facility] [address] [place], [address] Urine blood detectionOrdered By: Ariel Melendez on 08-14-2024 Urine Occult Blood 25 /ul High Negative [facility] Urine clarityOrdered By: Christopher Melendez on 08-14-2024 Clarity (U) Sl. Cloudy Clear [facility] Urine color determinationOrd ered By: Ariel Melendez on 08-14-2024 Color (U) Yellow Yellow [facility] Urine leukocyte esterase det ection by dipstickOrdered By: Ariel Melendez on 08-14-2024 Leukocyte esterase Test strip Ql (U) 25 /ul High Negative [facility] Urine pHOrdered By: Ariel Bauer on 08-14-2024 pH (U) 6.0 [pH] 5.0 - 8.0 [facility] Urine specific gravity measu rementOrdered By: Ariel Melendez on 08-14-2024 Specific gravity (U) [Rel density] 1.025 1.002-1.03 0 [facility] Urobilinogen Ql (U)Ordered B y: Ariel Melendez on 08-14-2024 Urine Urobilinogen Normal mg/dl Normal [facility] White blood cell countOrdere d By: Ariel Melendez on 08-14-2024 Urine WBC 0-5 SEEN /hpf 0-5 [facility] Gastroenterology Visit Repor ton 07-23-2024 Gastroenterology Visit Report [facility] [address] [place] [address] OFFICE VISIT Date of Service: 07/23/24 MR#: [id number] Acct: [id number] Name: IVORY IYER Rep #: [id number] : 1960 Provider: NORBERT wilde Age/Sex: 63/F [place] [facility] [place] Status: Signed Intake Vital Signs 06/24/24 18:26 07/23/24 08:15 Height 5 ft 7 in Weight: 191 lb BP 154/86 H Respiration 18 Pulse 84 Pulse Oximetry (%) 94 Oxygen Delivery Method room air Intake Visit Reasons: crimped bowel Chief Complaint: diverticulitis colonoscopy Snow Removal/Plowing Required: No Is patient in pain?: No Allergies hydrochlorothiazide Adverse Reaction (Severe, Verified 07/23/24 08:13) SEVERE HYPOKALEMIA, hospitalized for it bee venom protein (honey bee) Adverse Reaction (Verified 07/23/24 08:13) Swelling Medications ???Medication ???Instructions ???Recorded ???Confirmed ???Type olmesartan 40 mg tablet 20 mg PO QHS bp 08/30/21 07/23/24 History potassium chloride 20 mEq 20 meq PO DAILY potassium 11/23/22 07/23/24 History tablet,extended supplement release(part/cryst) (Klor-Con M) iodine 150 mcg tablet 150 mcg PO DAILY supplement 06/20/23 07/23/24 History multivitamin (Daily Multi-Vitamin 1 tab PO DAILY vitamin 06/20/23 07/23/24 History tablet) cholecalciferol (vitamin D3) 1 tab PO DAILY vitamin 06/21/23 07/23/24 History coenzyme Q10 10 mg capsule mg PO supplement 06/21/23 07/23/24 History vitamin B complex 1 tab PO DAILY vitamin 06/21/23 07/23/24 History clobetasol 0.05 % topical ointment 1 applic topical [facility] #30 01/09/24 07/23/24 Rx grams omega 8-akf-eod-fish oil 300 1 cap PO DAILY 02/25/24 07/23/24 History mg-1,000 mg capsule (Fish Oil) Have you fallen in the past year?: No Nurse's Note: Uncomfortable, doesn't want to eat. [facility] Medical History History of diverticulitis of colon Back pain Scoliosis of lumbar spine Non-cardiac chest pain Atrophic vaginitis Acute stress reaction Segmental and somatic dysfunction of pelvic region Segmental and somatic dysfunction of lumbar region Obesity Hyperlipidemia Lichen sclerosus et atrophicus Palpitations Hypertension Diverticulitis, colon Cellulitis, perineum AVD (aortic valve disease) Aortic root dilatation Wears glasses Post-menopausal Anxiety History of diverticulitis Former smoker History of echocardiogram History of transesophageal echocardiography (ALONDRA) Cardiology follow-up encounter Hx of small bowel obstruction Failure of outpatient treatment Acute diverticulitis Essential hypertension Small bowel obstruction Fatigue Dyspnea on exertion Abnormal EKG Prolonged QT interval First degree AV block SBO (small bowel obstruction) Obesity Nonrheumatic aortic valve insufficiency Surgical History History of hysterectomy, supracervical History of resection of small bowel History of cardiac catheterization History of right and left heart catheterization (02/10/19) History of bowel resection H/O total hysterectomy History of appendectomy Family History Uncle Diabetes Aunt Diabetes Social History Smoking Status: Former smoker quit date: 08/13/12 pack-years: 10 alcohol intake: current details: social substance use type: does not use caffeine: Yes what type of physical activity do you participate in: bicycling and yoga frequency: 5-6 times per week seatbelt use: always do you feel safe at home: Yes 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 She was seen in the ED on 06/24/2024 with complaints of nonbloody watery diarrhea and RUQ pressure. Labs revealed no leukocytosis, normal HGB, transaminases, LA, and lipase. CT was suggestive of mild enteritis. Colonoscopy was last performed January 2023 revealed severe diverticulosis of the descending and sigmoid colon, very tortuous requiring pediatric scope. 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 Recommend clinical correlation and follow-up studies if clinically warranted Diverticular disease of the colon without evidence for acute diverticulitis - she reports she is fearful of taking anything to slow down the stools - scared she will obstruct - reports 35# weight loss after lysis of adhesions - 13 years ago (2010) - (more content not included)... Normal [facility] Ova and Parasites 8623on OP OVA AND PARASITES EX AM, ROUTINE These results were obtained using wet preparation(s) and trichrome stained smear. This test does not include testing for Crytosporidium parvum, Cyclospora, or Microsporidia. One negative specimen does not rule out the possibility of a parasitic infection. TESTING PERFORMED AT [facility]. ORIGINAL REPORT ON FILE IN LAB CONTAINS ADDITIONAL TEST SITE INFORMATION. Ova/Parasite Exam NO OVA, CYSTS, OR PARASITES FOUND. Normal [facility] Comment on above: Performed By: #### L 500.4050, M600.5000, L503.6005, L501.2450, L100.0100 ####[facility] [address] [place], [place], [address] Abdomen/Pelvis W IV Cont ONL Yon 06-24-2024 Abdomen/Pelvis W IV Cont ONLY [facility] [address] [place] [address] Abdomen/Pelvis W IV Cont ONLY MR#: [id number] Acct: [id number] Name: IVORY IYER Rep #: [id number] : 1960 F 63 From: Jeovanny Jacques MD PCP: Dr. Gavino Melendez MD Status: REG ER Study: Abdomen/Pelvis W IV Cont ONLY Date of Exam: Exam# [id number] Ordering Dr: Johann Noble MD [id number] STUDY: CT ABDOMEN AND PELVIS WITH CONTRAST REASON FOR EXAM: Female, 63 years old. Upper abdominal pain, diarrhea RADIATION DOSAGE (If Supplied By Facility): CTDIvol = ( 14.88 ) mGy, DLP = ( 1070.48 ) mGycm TECHNIQUE: Transaxial images were obtained from the dome of the diaphragm to the symphysis pubis without oral contrast. IV 100mL Isovue-370 was administered. Sagittal and coronal images were reconstructed. Individualized dose optimization techniques were used for this CT. COMPARISON: June 20, 2023 FINDINGS: The visualized lung bases are unremarkable. The visualized portions of the heart are within normal limits. Normal liver. Normal gallbladder and extrahepatic biliary system. Normal spleen. Normal pancreas. Normal bilateral adrenal glands. Normal right kidney. Normal left kidney. Normal visualized stomach. There is malrotation of the small bowel with transverse portion of the duodenum and jejunum in the right midabdomen. There is mild distention of the proximal loops with thickening of the folds which may be consistent with nonspecific enteritis. There is no definitive evidence for small bowel obstruction. Diverticular changes of the colon without evidence for acute diverticulitis.. No evidence for acute appendicitis. Mild atherosclerotic change of the aorta without evidence for aneurysm. Normal inferior vena cava. Normal retroperitoneum. Normal urinary bladder. Uterus not visualized status post hysterectomy Normal abdominal wall. Normal osseous structures. CT/Abdomen/Pelvis W IV Cont ONLY IMPRESSION: Findings which may be consistent with nonspecific enteritis Malrotation of the proximal small bowel with mild dilatation possibly representing ileus without definitive evidence for point of obstruction. Recommend clinical correlation and follow-up studies if clinically warranted Diverticular disease of the colon without evidence for acute diverticulitis Electronically Signed: Jeovanny Jacques MD at 21:13 EST , CC: Dr. Johann Noble MD; Dr. Gavino Melendez MD Website/Blog Editor: Signed Normal [facility] CBC W/Diff, Automatedon 06-13 Absolute Lymph 3.80 X10 3/uL Normal 0.83-4.51 [facility] Comment on above: Performed By: #### L 500.4050, M600.5000, L503.6005, L501.2450, L100.0100 ####[facility] [address] [place], [address] Absolute Neut 4.1 X10 3/uL Normal 2.0-7.7 [facility] Comment on above: Performed By: #### L 500.4050, M600.5000, L503.6005, L501.2450, L100.0100 ####[facility] [address] [place], [address] Basophils/100 WBC (Bld) 0.4 % Normal 0-1 [facility] Comment on above: Performed By: #### L 500.4050, M600.5000, L503.6005, L501.2450, L100.0100 ####[facility] [address] [place], [address] Eosinophils/100 WBC (Bld) 1.2 % Normal 0-5 [facility] Comment on above: Performed By: #### L 500.4050, M600.5000, L503.6005, L501.2450, L100.0100 ####[facility] [address] [place], [address] Erythrocyte distribution width (RBC) [Ratio] 13.2 % Normal 11.6-14.6 [facility] Comment on above: Performed By: #### L 500.4050, M600.5000, L503.6005, L501.2450, L100.0100 ####[facility] [address] [place], [address] Hematocrit (Bld) [Volume fraction] 43.6 % Normal 37-47 [facility] Comment on above: Performed By: #### L 500.4050, M600.5000, L503.6005, L501.2450, L100.0100 ####[facility] [address] [place], [address] Hemoglobin (Bld) [Mass/Vol] 14.4 g/dL Normal 12.0-15.0 [facility] Comment on above: Performed By: #### L 500.4050, M600.5000, L503.6005, L501.2450, L100.0100 ####[facility] [address] [place], [address] IG% 0.600 Normal 0.0-0.9 [facility] Comment on above: Result Comment: IG% - Immature Granulocytes (promyelocytes, myelocytes and metamyelocytes) > 1% indicates that a LEFT SHIFT is Present. Performed By: #### L 500.4050, M600.5000, L503.6005, L501.2450, L100.0100 ####[facility] [address] [place], [address] Lymphocytes/100 WBC (Bld) 42.6 % High 19-41 [facility] Comment on above: Performed By: #### L 500.4050, M600.5000, L503.6005, L501.2450, L100.0100 ####[facility] [address] [place], [address] MCH (RBC) [Entitic mass] 29.4 pg Normal 27.0-32.0 [facility] Comment on above: Performed By: #### L 500.4050, M600.5000, L503.6005, L501.2450, L100.0100 ####[facility] [address] [place], [address] MCHC (RBC) [Mass/Vol] 33.0 g/dL Normal 32-36 [facility] Comment on above: Performed By: #### L 500.4050, M600.5000, L503.6005, L501.2450, L100.0100 ####[facility] [address] [place], [address] MCV (RBC) [Entitic vol] 89.2 fL Normal 81-99 [facility] Comment on above: Performed By: #### L 500.4050, M600.5000, L503.6005, L501.2450, L100.0100 ####[facility] [address] [place], [address] Monocytes/100 WBC (Bld) 9.1 % Normal 0-10 [facility] Comment on above: Performed By: #### L 500.4050, M600.5000, L503.6005, L501.2450, L100.0100 ####[facility] [address] [place], [address] Neutrophils/100 WBC (Bld) 46.1 % Low 47-70 [facility] Comment on above: Performed By: #### L 500.4050, M600.5000, L503.6005, L501.2450, L100.0100 ####[facility] [address] [place], [address] Nucleated RBC (Bld) [#/Vol] 0 10*3/uL Normal 0-5 [facility] Comment on above: Performed By: #### L 500.4050, M600.5000, L503.6005, L501.2450, L100.0100 ####[facility] [address] [place], [address] Platelet mean volume (Bld) [Entitic vol] 9.3 fL Normal 6.2-12.0 [facility] Comment on above: Performed By: #### L 500.4050, M600.5000, L503.6005, L501.2450, L100.0100 ####[facility] [address] [place], [address] Platelets (Bld) [#/Vol] 429 10*3/uL Normal 150-450 [facility] Comment on above: Performed By: #### L 500.4050, M600.5000, L503.6005, L501.2450, L100.0100 ####[facility] [address] [place], [address] RBC (Bld) [#/Vol] 4.89 10*6/uL Normal 4.2-5.4 [facility] Comment on above: Performed By: #### L 500.4050, M600.5000, L503.6005, L501.2450, L100.0100 ####[facility] [address] [place], [address] RDW SD 43.1 fl Normal 35.1-43.9 [facility] Comment on above: Performed By: #### L 500.4050, M600.5000, L503.6005, L501.2450, L100.0100 ####[facility] [address] [place], [address] WBC (Bld) [#/Vol] 8.9 10*3/uL Normal 4.4-11.0 [facility] Comment on above: Performed By: #### L 500.4050, M600.5000, L503.6005, L501.2450, L100.0100 ####[facility] [address] [place], [address] CDIFF (PCR)on 06-24-2024 CDIFF Is the patient recei ving laxatives? N New/unexplained onset of 3 or more stools in past 24 hrs? Y Pending 027 027 NAP1-B1 Presumptive Negative *for epidemiolologic???use C. Diff PCR Negative- No toxigenic C. Diff Detected Normal [facility] Comment on above: Performed By: #### L 500.4050, L100.0100 #### [facility] [address] [place], [address] Comprehensive Metabolic Prof ilon 06-24-2024 Albumin [Mass/Vol] 3.9 g/dL Normal 3.2-5.0 [facility] Comment on above: Performed By: #### L 500.4050, M600.5000, L503.6005, L501.2450, L100.0100 ####[facility] [address] [place], [address] Albumin/Globulin [Mass ratio] 1.0 {ratio} Normal 0.9-2.4 [facility] Comment on above: Performed By: #### L 500.4050, M600.5000, L503.6005, L501.2450, L100.0100 ####[facility] [address] [place], [address] ALK P 95 U/L Normal 45-117 [facility] Comment on above: Performed By: #### L 500.4050, M600.5000, L503.6005, L501.2450, L100.0100 ####[facility] [address] [place], [address] ALT [Catalytic activity/Vol] 30 U/L Normal 13-56 [facility] Comment on above: Performed By: #### L 500.4050, M600.5000, L503.6005, L501.2450, L100.0100 ####[facility] [address] [place], [address] AST [Catalytic activity/Vol] 17 U/L Normal 15-37 [facility] Comment on above: Performed By: #### L 500.4050, M600.5000, L503.6005, L501.2450, L100.0100 ####[facility] [address] [place], [address] Bilirubin [Mass/Vol] 0.50 mg/dL Normal 0.20-1.00 [facility] Comment on above: Result Comment: For patients on eltrombopag therapy, use of Dimension [place] TBIL is not recommended. Performed By: #### L 500.4050, M600.5000, L503.6005, L501.2450, L100.0100 ####[facility] [address] [place], [address] BUN/CRE 20.4 RATIO High 10-20 [facility] Comment on above: Performed By: #### L 500.4050, M600.5000, L503.6005, L501.2450, L100.0100 ####[facility] [address] [place], [address] CA,Total 9.4 mg/dL Normal 8.5-10.1 [facility] Comment on above: Performed By: #### L 500.4050, M600.5000, L503.6005, L501.2450, L100.0100 ####[facility] [address] [place], [address] Chloride [Moles/Vol] 107 mmol/L Normal 98-107 [facility] Comment on above: Performed By: #### L 500.4050, M600.5000, L503.6005, L501.2450, L100.0100 ####[facility] [address] [place], [address] CO2 [Moles/Vol] 26.0 mmol/L Normal 21.0-32.0 [facility] Comment on above: Performed By: #### L 500.4050, M600.5000, L503.6005, L501.2450, L100.0100 ####[facility] [address] [place], [address] Creatinine [Mass/Vol] 0.88 mg/dL Normal 0.55-1.02 [facility] Comment on above: Result Comment: The validity of the calculated GFR GFRAA in patients over 70 years has not been determined. Clinical correlation is essential. Performed By: #### L 500.4050, M600.5000, L503.6005, L501.2450, L100.0100 ####[facility] [address] [place], [address] ECRCL 72.06 ml/min Normal [facility] Comment on above: Performed By: #### L 500.4050, M600.5000, L503.6005, L501.2450, L100.0100 ####[facility] [address] [place], [address] EST GFR - AA 82 mL/min Normal >60 [facility] Comment on above: Result Comment: Afri can Slovenian GFR Calc Performed By: #### L 500.4050, M600.5000, L503.6005, L501.2450, L100.0100 ####[facility] [address] [place], [address] GAP 6 Normal 5-15 [facility] Comment on above: Performed By: #### L 500.4050, M600.5000, L503.6005, L501.2450, L100.0100 ####[facility] [address] [place], [place], [address] GFR/1.73 sq M.predicted among non-blacks MDRD (S/P/Bld) [Vol rate/Area] 68 mL/min/{1.73_m2} Normal >60 [facility] Comment on above: Result Comment: Non- GFR Calc Performed By: #### L 500.4050, M600.5000, L503.6005, L501.2450, L100.0100 ####[facility] [address] [place], [address] Globulin (S) [Mass/Vol] 4.1 g/dL Normal 2.2-4.2 [facility] Comment on above: Performed By: #### L 500.4050, M600.5000, L503.6005, L501.2450, L100.0100 ####[facility] [address] [place], [address] Glucose [Mass/Vol] 101 mg/dL Normal 74-106 [facility] Comment on above: Result Comment: Fast ing Glucose result from 100 to 125 mg/dL suggests IMPAIRED HOMEOSTASIS per A.D.A. criteria. Performed By: #### L 500.4050, M600.5000, L503.6005, L501.2450, L100.0100 ####[facility] [address] [place], [address] Potassium [Moles/Vol] 3.6 mmol/L Normal 3.5-5.1 [facility] Comment on above: Performed By: #### L 500.4050, M600.5000, L503.6005, L501.2450, L100.0100 ####[facility] [address] [place], [address] Sodium [Moles/Vol] 139 mmol/L Normal 136-145 [facility] Comment on above: Performed By: #### L 500.4050, M600.5000, L503.6005, L501.2450, L100.0100 ####[facility] [address] [place], [address] T PROT 8.0 g/dL Normal 6.4-8.2 [facility] Comment on above: Performed By: #### L 500.4050, M600.5000, L503.6005, L501.2450, L100.0100 ####[facility] [address] [place], [address] Urea nitrogen [Mass/Vol] 18 mg/dL Normal 7-18 [facility] Comment on above: Performed By: #### L 500.4050, M600.5000, L503.6005, L501.2450, L100.0100 ####[facility] [address] [place], [address] Emergency Department Summary on 06-24-2024 Emergency Department Summary [facility] Medical Records Department [address] [place] [address] Emergency Department Summary 06/24/24 MR#: [id number] Acct: [id number] Name: IVORY IYER Rep #: [id number] : 1960 63 From: Johann Noble MD PCP: Dr. Gavino Melendez MD Status:REG ER Location: ED HPI HPI - GI History of Present Illness Chief Complaint: Diarrhea Informant: patient and spouse/S.O. Narrative Narrative: 53-year-old female has been having watery nonbloody diarrhea about 10 times a day for the past 5 days along with right upper abdominal discomfort that feels more like pressure than pain. She denies any fevers or chills or nausea or vomiting. No suspicious food intake. States she was in [place] recently but she arrived home 1 month ago and does not think that is necessarily related. No recent antibiotics. She is concerned because the last time she had something like this, she had a CT of the abdomen/pelvis that showed no acute abnormality but her surgeon Dr. Shrestha then looked at it and told her she had microperforations and needed to be admitted to the hospital which she was subsequently. She has also had a bowel obstruction in the past, but she had an adhesiolysis rather than bowel resection for it. She had a remote bowel resection when she was a child due to things being twisted. No other resections. [facility] Medical History History of diverticulitis of colon Back pain Scoliosis of lumbar spine Non-cardiac chest pain Atrophic vaginitis Acute stress reaction Segmental and somatic dysfunction of pelvic region Segmental and somatic dysfunction of lumbar region Obesity Hyperlipidemia Lichen sclerosus et atrophicus Palpitations Hypertension Diverticulitis, colon Cellulitis, perineum AVD (aortic valve disease) Aortic root dilatation Wears glasses Post-menopausal Anxiety History of diverticulitis Former smoker History of echocardiogram History of transesophageal echocardiography (ALONDRA) Cardiology follow-up encounter Hx of small bowel obstruction Failure of outpatient treatment Acute diverticulitis Essential hypertension Small bowel obstruction Fatigue Dyspnea on exertion Abnormal EKG Prolonged QT interval First degree AV block SBO (small bowel obstruction) Obesity Nonrheumatic aortic valve insufficiency Home Medications ???Medication ???Instructions ???Recorded ???Last Taken ???Type olmesartan 40 mg tablet 20 mg PO QHS bp 08/30/21 11/22/22 21:00 History potassium chloride 20 mEq 20 meq PO DAILY potassium 11/23/22 11/22/22 21:00 History tablet,extended supplement release(part/cryst) (Klor-Con M) iodine 150 mcg tablet 150 mcg PO DAILY supplement 06/20/23 Unknown History multivitamin (Daily Multi-Vitamin 1 tab PO DAILY vitamin 06/20/23 Unknown History tablet) cholecalciferol (vitamin D3) 1 tab PO DAILY vitamin 06/21/23 Unknown History coenzyme Q10 10 mg capsule mg PO supplement 06/21/23 Unknown History vitamin B complex 1 tab PO DAILY vitamin 06/21/23 Unknown History clobetasol 0.05 % topical ointment 1 applic topical [facility] #30 01/09/24 Unknown Rx grams omega 8-cnu-npg-fish oil 300 1 cap PO DAILY 02/25/24 Unknown History mg-1,000 mg capsule (Fish Oil) ciprofloxacin HCl 500 mg tablet 500 mg PO BID #6 TABLETS 06/24/24 Unknown Rx Allergy/AdvReac Type Severity Reaction Status Date / Time hydrochlorothiazide AdvReac Severe SEVERE Verified 06/24/24 18:26 HYPOKALEMIA, hospitalized for it bee venom protein (honey bee) AdvReac Swelling Verified 06/24/24 18:26 codeine AdvReac Other Verified 06/24/24 18:26 Family History Uncle Diabetes Aunt Diabetes Surgical History History of hysterectomy, supracervical History of resection of small bowel History of cardiac catheterization History of right and left heart catheterization (02/10/19) History of bowel resection H/O total hysterectomy History of appendectomy Social History Smoking Status: Former smoker quit date: 08/13/12 pack-years: 10 alcohol intake: current details: social substance use type: does not use caffeine: Yes what type of physical activity do you participate in: bicycling and yoga frequency: 5-6 times per week seatbelt use: always do you feel safe at home: Yes 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 Normal [facility] Lactic Acidon 06-24-2024 Lactate [Moles/Vol] 1.1 mmol/L Normal 0.4-1.9 [facility] Comment on above: Order Comment: Y Performed By: #### L 500.4050, M600.5000, L503.6005, L501.2450, L100.0100 ####[facility] [address] [place], [address] Lipaseon 06-24-2024 Lipase [Catalytic activity/Vol] 33 U/L Normal 13-75 [facility] Comment on above: Result Comment: Lizy dominique note: LIPASE revised reference range effective 22. New Lipase methodology. Expected to produce lower values than the previous assay method. NEW Reference Range: 13 - 75 U/L Performed By: #### L 500.4050, M600.5000, L503.6005, L501.2450, L100.0100 ####[facility] [address] [place], [address] Stool Lactoferrin/WBCon 06-13 WBCST Is the patient recei ving laxatives? N New/unexplained onset of 3 or more stools in past 24 hrs? Y Normal Reference Range = Negative Fecal WBC Lactoferrin A Positive: Fecal WBC Lactoferrin present A Normal [facility] Comment on above: Performed By: #### L 500.4050, L100.0100 #### [facility] Laboratory [address] [place], [address] Transvaginal Non-on 06-03-2024 Transvaginal Non- [facility] Imaging Services [address] [place] [address] Transvaginal Non- MR#: [id number] Acct: [id number] Name: IVORY IYER Rep #: [id number] : 1960 F 63 From: Jose Toth MD PCP: Dr. Gavino Melendez MD Status: REG CLI Study: Transvaginal Non- Date of Exam: Exam# [id number] Ordering Dr: Krista Nielsen CNM [id number] STUDY: ULTRASOUND TRANSVAGINAL CLINICAL: Female, 63 years old. intermittent pelvic pain TECHNIQUE: Transvaginal COMPARISON: None. FINDINGS: Status post hysterectomy.. 1.5 cm nabothian cyst within the cervix. The ovaries are not visualized.. There is no free fluid in the pelvis. Polycystic ovary disease: No. US/Transvaginal Non- IMPRESSION: Status post hysterectomy. 1.5 cm nabothian cyst within the remaining cervix. Nonvisualization of the ovaries. Electronically Signed: Jose Toth MD at 10:07 EDT , CC: LADONNA Nielsen; Dr. Gavino Melendez MD Website/Blog Editor: Signed Normal [facility] Application Security Specialist Office Visit Reporton 05-09-2024 Application Security Specialist Office Visit Report [facility] [address] [place] [address], [address] [place] [address] OFFICE VISIT Date of Service: 05/09/24 MR#: [id number] Acct: [id number] Name: IVORY IYER Rep #: [id number] : 1960 Provider: LADONNA Foster ams Age/Sex: 63/F Location[place] [facility] Status: Signed Intake Vital Signs 06/21/23 10:58 02/25/24 08:58 05/09/24 09:35 05/09/24 09:38 Height 5 ft 7 in 5 ft 7 in 5 ft 7 in 5 ft 7 in Weight: 194 lb BMI 30.4 BP 143/86 H Pulse 73 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 Removal/Plowing Required: No Is patient in pain?: No Allergies hydrochlorothiazide Adverse Reaction (Severe, Verified 05/09/24 09:41) SEVERE HYPOKALEMIA, hospitalized for it bee venom protein (honey bee) Adverse Reaction (Verified 05/09/24 09:41) Swelling codeine Adverse Reaction (Verified 05/09/24 09:41) Other Medications ???Medication ???Instructions ???Recorded ???Confirmed ???Type olmesartan 40 mg tablet 20 mg PO QHS bp 08/30/21 05/09/24 History potassium chloride 20 mEq 20 meq PO DAILY potassium 11/23/22 05/09/24 History tablet,extended supplement release(part/cryst) (Klor-Con M) iodine 150 mcg tablet 150 mcg PO DAILY supplement 06/20/23 05/09/24 History multivitamin (Daily Multi-Vitamin 1 tab PO DAILY vitamin 06/20/23 05/09/24 History tablet) cholecalciferol (vitamin D3) 1 tab PO DAILY vitamin 06/21/23 05/09/24 History coenzyme Q10 10 mg capsule mg PO supplement 06/21/23 05/09/24 History vitamin B complex 1 tab PO DAILY vitamin 06/21/23 05/09/24 History clobetasol 0.05 % topical ointment [address] [facility] health #30 01/09/24 05/09/24 Rx grams omega 7-iqr-mda-fish oil 300 1 cap PO DAILY 02/25/24 05/09/24 History mg-1,000 mg capsule (Fish Oil) Is last menstrual period known: No Post menopausal: Yes Patient : No : No PFSH Medical History History of diverticulitis of colon Back pain Scoliosis of lumbar spine Non-cardiac chest pain Atrophic vaginitis Acute stress reaction Segmental and somatic dysfunction of pelvic region Segmental and somatic dysfunction of lumbar region Obesity Hyperlipidemia Lichen sclerosus et atrophicus Palpitations Hypertension Diverticulitis, colon Cellulitis, perineum AVD (aortic valve disease) Aortic root dilatation Wears glasses Post-menopausal Anxiety History of diverticulitis Former smoker History of echocardiogram History of transesophageal echocardiography (ALONDRA) Cardiology follow-up encounter Hx of small bowel obstruction Failure of outpatient treatment Acute diverticulitis Essential hypertension Small bowel obstruction Fatigue Dyspnea on exertion Abnormal EKG Prolonged QT interval First degree AV block SBO (small bowel obstruction) Obesity Nonrheumatic aortic valve insufficiency Surgical History History of hysterectomy, supracervical History of resection of small bowel History of cardiac catheterization History of right and left heart catheterization (02/10/19) History of bowel resection H/O total hysterectomy History of appendectomy Family History Uncle Diabetes Aunt Diabetes Social History (Updated 05/09/24 @ 09:42 by Lashon Anderson) Smoking Status: Former smoker quit date: 08/13/12 pack-years: 10 alcohol intake: current details: social substance use type: does not use caffeine: Yes what type of physical activity do you participate in: bicycling and yoga frequency: 5-6 times per week seatbelt use: always do you feel safe at home: Yes 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 Date Name GA/Weeks Outcome Route Bth Weight Infant Gen Labor Lgth Anesthesia Del Locatn Provider FOB Unknown 1974 Adoption Unknown 1979 Rakel Unknown 1982 Satish Unknown 1986 Ben Unknown Yamilka 1988 Unknown 1988 Miscarriage Unknown 1990 [facility] Encounter for routine gynecological examination Details: IVORY IYER is a 63 year old who presents for annual exam. 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 sexually active with . lichens controlled with clobetasol. Last PAP: 2021 History of abnormal PAP: no Last mammogram: 2023 History of abnormal mammogram: no Colon cancer screening: PCP Other preventative health care screenings: PCP SITA Cardona Constitutional: Reports system reviewed and no additional complaints, except as documented Cardio Card: Reports system reviewed and no additional complaints, except as (more content not included)... Normal [facility] SCRN MAMM (CAD)W/VISHNU BILATo n 05-08-2024 SCRN MAMM (CAD)W/VISHNU BILAT [facility] Imaging Services [address] [place] [address] SCRN MAMM (CAD)W/VISHNU BILAT MR#: [id number] Acct: [id number] Name: IVORY IYER Rep #: [id number] : 1960 F 63 From: Duy bell MD PCP: Dr. Gavino Melendez MD Status: [facility] Study: SCRN MAMM (CAD)W/VISHNU BILAT Date of Exam: 04/14 02/03 Exam# [id number] Ordering Dr: Katya Marshall [id number] MAMMOGRAPHY - BILATERAL SCREENING REASON FOR EXAM: Female, 63 years old. Routine annual screening examination. PERTINENT HISTORY: Non-contributory. TECHNIQUE: Digital bilateral breast vishnu (3D mammographic acquisition) in the CC and MLO projections. 2-D mediolateral oblique (MLO) and craniocaudad (CC) views of both breasts were obtained. CAD: Full Field Digital Mammography with Computer Added Detection was performed. COMPARISON: Comparison is made with prior study of May 07, 2023 and April 27, 2022. FINDINGS: Breast Composition: There are scattered areas of fibroglandular density. There are no dominant masses or suspicious calcifications. Stable benign-appearing bilateral axillary lymph nodes. No other significant abnormalities are identified. There has been no significant change since the prior study. BI/SCRN MAMM (CAD)W/VISHNU BILAT IMPRESSION: Stable bilateral screening mammogram. Yearly follow-up mammogram recommended. (A) ASSESSMENT CATEGORY: BIRADS Category 2: Benign. A letter regarding these results will be sent to the patient by the facility within 30 days. Approximately 10% of breast cancers are not detected by mammography. A normal mammogram should not delay biopsy of a clinically suspicious abnormality. [id number] Electronically Signed: Duy Coppola MD at 9:18 EDT Reading Location ID and State: [address] [place] [address] , Service support , CC: Dr. Gavino Melendez MD; Dr. Katya Marshall MD Website/Blog Editor: Signed Normal [facility] Echo Completeon 04-21-2024 Echo Complete [facility] Cardiovascular Services [address] [place] [address] Echo Complete 04/21/24 0817 MR#: [id number] Acct: [id number] Name: IVORY IYER Rep #: [id number] : 1960 63 From: Carlyn Pickard MD Attending Dr: Dr. Carlyn Pickard MD Status: REG CLI Ordering Dr: Carlyn Pickard MD Date: 04/21/24 Location: [facility] Sex: F C Admitted: Reason For Study: Non Rheumatic AI Procedure This was a 2D Doppler, Color Flow transthoracic echocardiogram. Exam performed in department. Left Ventricle Normal LV size. Mild concentric left ventricular hypertrophy. The left ventricular ejection fraction is 65 %. Stage 1 diastolic dysfunction. Right Ventricle Normal right ventricle. Atria The left atrium is mildly enlarged. Normal right atrium. Mitral Valve Mild (1+) mitral valve insufficiency. Tricuspid Valve Mild tricuspid valve insufficiency. Normal pulmonary artery pressure. Aortic Valve Trisinus/trileaflet aortic valve. Mild aortic stenosis. Mild (1+) aortic valve insufficiency. Pulmonic Valve The pulmonic valve is not well visualized. Great Vessels Mildly dilated ascending aorta. Pericardium/Pleural No pericardial effusion. MMode/2D Measurements Calculations LVIDd: 4.8 cm IVSd: 1.2 cm LVOT diam: 2.0 cm LVIDs: 3.3 cm LVPWd: 1.0 cm LVOT area: 3.1 cm2 FS: 31.3 % Ao root diam: 4.5 cm asc Aorta Diam: 4.7 cm LAV(MOD-bp): 69.1 ml LA dimension: 4.4 cm LAV(MOD-bp) Indexed: 34.3 ml/m2 LAV(MOD-sp2): 65.1 ml LAV(MOD-sp4): 63.7 ml SV(MOD-sp4): 49.7 ml SV(sp4-el): 55.1 ml LVAd ap4: 31.1 cm2 LVLd ap4: 8.3 cm EDV(MOD-sp4): 93.8 ml EDV(sp4-el): 99.1 ml LVAs ap4: 18.6 cm2 LVLs ap4: 6.7 cm ESV(MOD-sp4): 44.1 ml ESV(sp4-el): 44.0 ml EF(MOD-sp4): 53.0 % EF(sp4-el): 55.6 % LA A4 area: 22.2 cm2 RA A4 area: 16.3 cm2 TAPSE: 2.3 cm Time Measurements MV dec time: 0.23 sec Doppler Measurements Calculations MV E max lauren: 73.5 cm/sec Lat Peak E' Lauren: 7.0 cm/sec Med Peak E' Lauren: 8.4 cm/sec MV A max lauren: 96.1 cm/sec E/E' lat: 10.5 E/E' med: 8.8 MV E/A: 0.76 MV V2 max: 113.2 cm/sec MV P1/2t max lauren: 109.4 cm/sec Ao V2 max: 260.8 cm/sec MV max P.1 mmHg MV P1/2t: 93.6 msec Ao max P.5 mmHg MV V2 mean: 56.9 cm/sec Ao V2 mean: 164.5 cm/sec MV mean P.6 mmHg MV dec slope: 342.5 cm/sec2 Ao mean P.0 mmHg MV V2 VTI: 39.7 cm MVA(P1/2t): 2.4 cm2 Ao V2 VTI: 64.4 cm AV (velocity ratio): 0.48 MVA(VTI): 2.5 cm2 THIAGO(I,D): 1.5 cm2 THIAGO(V,D): 1.6 cm2 AI max lauren: 483.3 cm/sec LV V1 max: 128.8 cm/sec SV(LVOT): 97.8 ml AI max P.6 mmHg LV V1 max P.7 mmHg LV V1 mean P.3 mmHg AI dec slope: 214.4 cm/sec2 LV V1 mean: 83.4 cm/sec AI P1/2t: 660.4 msec LV V1 VTI: 31.1 cm PA V2 max: 95.0 cm/sec TR max lauren: 263.2 cm/sec PA max PG (full): 1.1 mmHg TR max P.7 mmHg ECHO/Echo Complete Interpretation Summary Mild concentric left ventricular hypertrophy. The left ventricular ejection fraction is 65 %. Stage 1 diastolic dysfunction. The left atrium is mildly enlarged. Mild (1+) mitral valve insufficiency. Mild tricuspid valve insufficiency. Mild aortic stenosis. Mild (1+) aortic valve insufficiency. Mildly dilated ascending aorta. ___ Ordering Physician: Carlyn Pickard Referring Physician: Gavino Melendez Performed By: Ariel Mortensen RCS 04/28/24 1319 Date Carlyn Pickard MD CC: Dr. Carlyn Pickard MD; Dr. Gavino Melendez MD Date Dictated: 04/21/24816 Date Transcribed: 04/28/24 1319 Website/Blog Editor: Signed Normal [facility] CTA Chest W/WO Contraston CTA Chest W/WO Contrast [facility] Imaging Services [address] [place], [place] [address] CTA Chest W/WO Contrast MR#: [id number] Acct: [id number] Name: IVORY IYER Rep #: [id number] : 1960 F 63 From: Duy bell MD PCP: Dr. Gavino Melendez MD Status: REG CL Study: CTA Chest W/WO Contrast Date of Exam: 03/24/24 Exam# [id number] Ordering Dr: Carlyn Pickard MD [id number] STUDY: CTA CHEST REASON FOR EXAM: Female, 63 years old. Dilatation of thoracic aorta RADIATION DOSAGE (If Supplied By Facility): CTDIvol = ( 12.93 ) mGy, DLP = ( 584.04 ) mGycm TECHNIQUE: The examination was performed with the intravenous administration of IV 100mL Isovue-370. Post-processing of the angiographic images was performed, with multiplanar reformation and 3D reconstruction. Individualized dose optimization techniques were used for this CT. COMPARISON: None. FINDINGS: Normal enhancement of the main pulmonary artery and right and left pulmonary arteries. Normal enhancement of the bilateral peripheral pulmonary arteries. There is no demonstrated pulmonary embolism. There is aneurysmal dilatation of the ascending aorta. The transverse diameter of the ascending aorta measures 45.7 mm''s. Mild degree of atherosclerotic plaque formation of the aortic arch. There is no demonstrated aortic dissection. Normal heart and pericardium. No coronary artery calcification is seen. Normal mediastinum. Normal hilar regions. Normal visualized trachea and bronchi. The lungs are well expanded. Normal pulmonary parenchyma. Normal pleura. Normal chest wall structures. There are degenerative changes of thoracic spine. Diffuse fatty infiltration of the liver. CT/CTA Chest W/WO Contrast IMPRESSION: Dilatation of the root of the ascending thoracic aorta with a transverse dimension of 45.7 mm. Electronically Signed: Duy Coppola MD at 14:40 EDT Reading Location ID and State: [address] [place] [address] , Service support , CC: Dr. Carlyn Pickard MD; Dr. Gavino Melendez MD Website/Blog Editor: Signed Normal [facility] Serum or plasma thyroid stim ulating hormone (TSH) measurement (units/volume)Ordered By: Gavino Melendez on 09-04-2023 TSH Qn 3.37 uIU/mL 0.358-3.74 [facility] Serum or plasma thyroperoxid ase antibody assay (units/volume)Ordered By: Gavino Melendez on 09-04-2023 TPO Ab Qn 9 [IU]/mL 0-34 [facility] Comment on above: Performed at: [facility] [address] Director: Luis Alfredo Wetzel PhD, Phone: [phone] Whole blood hemoglobin A1c/t otal hemoglobin ratio (mass fraction)Ordered By: Gavino Melendez on 09-04-2023 HbA1c (Bld) [Mass fraction] 5.6 % 3.8-5.6 [facility] Comment on above: Normal < 5.7 % Predi abetic 5.7 - 6.4 % Diabetic >or= 6.5 % Please note range changes. Absolute lymphocyte countOrd ered By: Gavino Melendez on 08-14-2023 Lymphocytes Auto (Unsp spec) [#/Vol] 2.45 10*3/uL 0.83-4.51 [facility] Basophil percentageOrdered B y: Gavino Melendez on 08-14-2023 Basophils/100 WBC (Bld) 1.0 % 0-1 [facility] Bilirubin [Mass/Vol] 0.50 mg/dL 0.20-1.00 [facility] Comment on above: For patients on eltr ombopag therapy, use of Dimension [place] TBIL is not recommended. Chloride [Moles/Vol] 106 mmol/L 98-107 [facility] Eosinophils/100 WBC (Bld) 1.7 % 0-5 [facility] Glucose [Mass/Vol] 123 mg/dL 74-106 [facility] Comment on above: Fasting Glucose resu lt from 100 to 125 mg/dL suggests IMPAIRED HOMEOSTASIS per A.D.A. criteria. Neutrophils (Bld) [#/Vol] 4.6 10*3/uL 2.0-7.7 [facility] Neutrophils/100 WBC (Bld) 59.0 % 47-70 [facility] Potassium [Moles/Vol] 4.2 mmol/L 3.5-5.1 [facility] Protein [Mass/Vol] 8.1 g/dL 6.4-8.2 [facility] Sodium [Moles/Vol] 139 mmol/L 136-145 [facility] WBC (Bld) [#/Vol] 7.8 10*3/uL 4.4-11.0 [facility] Blood erythrocytes count (nu mber/volume)Ordered By: Gavino Melendez on 08-14-2023 RBC (Bld) [#/Vol] 5.01 10*6/uL 4.2-5.4 [facility] Blood hemoglobin measurement (mass/volume)Ordered By: Gavino Melendez on 08-14-2023 Hemoglobin (Bld) [Mass/Vol] 14.3 g/dL 12.0-15.0 [facility] Blood lymphocytes/100 leukoc ytesOrdered By: Gavino Melendez on 08-14-2023 Lymphocytes/100 WBC (Bld) 31.4 % 19-41 [facility] Blood monocytes/100 leukocyt esOrdered By: Gavino Melendez on 08-14-2023 Monocytes/100 WBC (Bld) 6.4 % 0-10 [facility] Blood platelet mean volumeOr dered By: Gavino Melendez on 08-14-2023 Platelet mean volume (Bld) [Entitic vol] 10.0 fL 6.2-12.0 [facility] Determination of erythrocyte mean corpuscular volume (MCV)Ordered By: aGvino Melendez on 08-14-2023 MCV (RBC) [Entitic vol] 93.0 fL 81-99 [facility] Hematocrit Auto (Bld) [Volum e fraction]Ordered By: Gavino Melendez on 08-14-2023 Hematocrit (Bld) [Volume fraction] 46.6 % 37-47 [facility] Laboratory - Chemistry and C hemistry - challengeOrdered By: Gavino Melendez on 08-14-2023 ALP [Catalytic activity/Vol] 88 U/L 45-117 [facility] ALT [Catalytic activity/Vol] 35 U/L 13-56 [facility] CO2 [Moles/Vol] 28.0 mmol/L 21.0-32.0 [facility] Free T4 [Mass/Vol] 0.85 ng/dL 0.76-1.46 [facility] Globulin (S) [Mass/Vol] 4.0 g/dL 2.2-4.2 [facility] Urea nitrogen/Creatinine [Mass ratio] 12.7 mg/mg 10-20 [facility] Laboratory - Hematology and Cell countsOrdered By: Gavino Melendez on 08-14-2023 Erythrocyte distribution width (RBC) [Entitic vol] 45.9 fL 35.1-43.9 [facility] Erythrocyte distribution width (RBC) [Ratio] 13.6 % 11.6-14.6 [facility] Immature granulocytes/100 WBC (Bld) 0.500 % 0.0-0.9 [facility] Comment on above: IG% - Immature Granu locytes (promyelocytes, myelocytes and metamyelocytes) > 1% indicates that a LEFT SHIFT is Present. MCH (RBC) [Entitic mass] 28.5 pg 27.0-32.0 [facility] Nucleated RBC/100 WBC (Bld) [Ratio] 0 % 0-5 [facility] MCHC Auto (RBC) [Mass/Vol]Or dered By: Gavino Melendez on 08-14-2023 MCHC (RBC) [Mass/Vol] 30.7 g/dL 32-36 [facility] No Panel InformationOrdered By: Gavino Melendez on 08-14-2023 Estimated GFR (MDRD) Amer 76 mL/min >60 [facility] Comment on above: GFR Calc Estimated GFR (MDRD) Non-Af Amer 63 mL/min >60 [facility] Comment on above: Non- GFR Calc Miscellaneous Test See comment [facility] Comment on above: TEST RESULT LIMITSFr ee and Total Insulin Free Insulin 70 High uU/mL Reference Range: Pubertal Children and Adults (fasting): 0 - 17 Total Insulin 70 uU/mLNon-Diabetic: In the absence of insulin-binding antibodies,the free and total insulin assays are equivalent. However,this assay is intended for use in diabetics with insulinautoantibody present. Measurement is performed onacid-treated samples and, therefore, the sensitivity andabsolute values by this method may differ from our directinsulin ICMA.Insulin Dependent Diabetic Patients: Free Insulin levelsvary depending on the capacity and affinity of circulatinginsulin-binding antibodies and the dose of insulin given tothe patient. Total insulin levels represent free insulinand antibody bound insulin fractions.This test was developed and its performance characteristicsdetermined by [employer]. It has not been cleared or approvedby the Food and Drug Administration. [facility] ORIGINAL REPORT ON FILE IN LAB CONTAINS ADDITIONAL TEST SITE INFORMATION. Thyroid Stimulating Hormone (TSH) 4.63 uIU/mL 0.358-3.74 [facility] Vitamin D 25-Hydroxy 35.3 ng/mL [facility] Comment on above: Vitamin D 25(OH) Sta tus Range Deficiency <20 ng/mL (50nmol/L) Insufficiency 20 - 30 ng/mL (50 - 75 nmol/L) Sufficiency 30 - 100 ng/mL (75 - 250 nmol/L) Toxicity >100 ng/mL (>250 nmol/L) Platelets bldOrdered By: Shanae Melendez on 08-14-2023 Platelets (Bld) [#/Vol] 409 10*3/uL 150-450 [facility] Serum or plasma albumin anuj urement (mass/volume)Ordered By: Gavino Melendez on 08-14-2023 Albumin [Mass/Vol] 4.1 g/dL 3.2-5.0 [facility] Serum or plasma albumin/glob ulin mass ratioOrdered By: Gavino Melendez on 08-14-2023 Albumin/Globulin [Mass ratio] 1.0 {ratio} 0.9-2.4 [facility] Serum or plasma calcium anuj urement (mass/volume)Ordered By: Gavino Melendez on 08-14-2023 Calcium [Mass/Vol] 9.5 mg/dL 8.5-10.1 [facility] Serum or plasma creatinine m easurement (mass/volume)Ordered By: Gavino Melendez on 08-14-2023 Creatinine [Mass/Vol] 0.94 mg/dL 0.55-1.02 [facility] Comment on above: The validity of the calculated GFR & GFRAA in patients over 70 years has not been determined. Clinical correlation is essential. Serum or plasma urea nitroge n measurement (mass/volume)Ordered By: Gavino Melendez on 08-14-2023 Urea nitrogen [Mass/Vol] 12 mg/dL 7-18 [facility] Thin prep Papanicolaou smear with manual screeningOrdered By: [facility] Melendez on 08-14-2023 Thin prep Papanicolaou smear with manual screening 21 U/L 15-37 [facility] Thin prep Papanicolaou smear with manual screening 5 5-15 [facility] Absolute lymphocyte countOrd ered By: Sisi Espinal on 06-21-2023 Lymphocytes Auto (Unsp spec) [#/Vol] 2.37 10*3/uL 0.83-4.51 [facility] Basophil percentageOrdered B y: Sisi Espinal on 06-21-2023 Basophil percentage 4.5 mg/dL 2.5-4.9 [facility] Basophils/100 WBC (Bld) 0.8 % 0-1 [facility] Bilirubin [Mass/Vol] 0.50 mg/dL 0.20-1.00 [facility] Comment on above: For patients on eltr ombopag therapy, use of Dimension [place] TBIL is not recommended. Chloride [Moles/Vol] 104 mmol/L 98-107 [facility] Eosinophils/100 WBC (Bld) 1.4 % 0-5 [facility] Glucose [Mass/Vol] 107 mg/dL 74-106 [facility] Comment on above: Fasting Glucose resu lt from 100 to 125 mg/dL suggests IMPAIRED HOMEOSTASIS per A.D.A. criteria. Neutrophils (Bld) [#/Vol] 5.9 10*3/uL 2.0-7.7 [facility] Neutrophils/100 WBC (Bld) 63.6 % 47-70 [facility] Potassium [Moles/Vol] 4.1 mmol/L 3.5-5.1 [facility] Protein [Mass/Vol] 6.8 g/dL 6.4-8.2 [facility] Sodium [Moles/Vol] 140 mmol/L 136-145 [facility] WBC (Bld) [#/Vol] 9.2 10*3/uL 4.4-11.0 [facility] Blood erythrocytes count (nu mber/volume)Ordered By: Sisi Espinal on 06-21-2023 RBC (Bld) [#/Vol] 4.41 10*6/uL 4.2-5.4 [facility] Blood hemoglobin measurement (mass/volume)Ordered By: Sisi Espinal on 06-21-2023 Hemoglobin (Bld) [Mass/Vol] 12.8 g/dL 12.0-15.0 [facility] Blood lymphocytes/100 leukoc ytesOrdered By: Sisi Espinal on 06-21-2023 Lymphocytes/100 WBC (Bld) 25.7 % 19-41 [facility] Blood monocytes/100 leukocyt esOrdered By: Sisi Espinal on 06-21-2023 Monocytes/100 WBC (Bld) 8.1 % 0-10 [facility] Blood platelet mean volumeOr dered By: Sisi Espinal on 06-21-2023 Platelet mean volume (Bld) [Entitic vol] 9.8 fL 6.2-12.0 [facility] Determination of erythrocyte mean corpuscular volume (MCV)Ordered By: Sisi Espinal on 06-21-2023 MCV (RBC) [Entitic vol] 93.9 fL 81-99 [facility] Hematocrit Auto (Bld) [Volum e fraction]Ordered By: Sisi Espinal on 06-21-2023 Hematocrit (Bld) [Volume fraction] 41.4 % 37-47 [facility] Laboratory - Chemistry and C hemistry - challengeOrdered By: Sisi Espinal on 06-21-2023 ALP [Catalytic activity/Vol] 84 U/L 45-117 [facility] ALT [Catalytic activity/Vol] 48 U/L 13-56 [facility] CO2 [Moles/Vol] 29.0 mmol/L 21.0-32.0 [facility] Globulin (S) [Mass/Vol] 3.2 g/dL 2.2-4.2 [facility] Magnesium [Mass/Vol] 2.5 mg/dL 1.6-2.6 [facility] Urea nitrogen/Creatinine [Mass ratio] 15.6 mg/mg 10-20 [facility] Laboratory - Hematology and Cell countsOrdered By: Sisi Espinal on 06-21-2023 Erythrocyte distribution width (RBC) [Entitic vol] 45.9 fL 35.1-43.9 [facility] Erythrocyte distribution width (RBC) [Ratio] 13.3 % 11.6-14.6 [facility] Immature granulocytes/100 WBC (Bld) 0.400 % 0.0-0.9 [facility] Comment on above: IG% - Immature Granu locytes (promyelocytes, myelocytes and metamyelocytes) > 1% indicates that a LEFT SHIFT is Present. MCH (RBC) [Entitic mass] 29.0 pg 27.0-32.0 [facility] Nucleated RBC/100 WBC (Bld) [Ratio] 0 % 0-5 [facility] MCHC Auto (RBC) [Mass/Vol]Or dered By: Sisi Espinal on 06-21-2023 MCHC (RBC) [Mass/Vol] 30.9 g/dL 32-36 [facility] No Panel InformationOrdered By: Sisi Espinal on 06-21-2023 Estimated Creatinine Clearance Calc 61.41 ml/min [facility] Estimated GFR (MDRD) Amer 81 mL/min >60 [facility] Comment on above: GFR Calc Estimated GFR (MDRD) Non-Af Amer 67 mL/min >60 [facility] Comment on above: Non- GFR Calc Platelets bldOrdered By: Oneil Espinal on 06-21-2023 Platelets (Bld) [#/Vol] 376 10*3/uL 150-450 [facility] Serum or plasma albumin anuj urement (mass/volume)Ordered By: Sisi Espinal on 06-21-2023 Albumin [Mass/Vol] 3.6 g/dL 3.2-5.0 [facility] Serum or plasma albumin/glob ulin mass ratioOrdered By: Sisi Espinal on 06-21-2023 Albumin/Globulin [Mass ratio] 1.1 {ratio} 0.9-2.4 [facility] Serum or plasma calcium anuj urement (mass/volume)Ordered By: Sisi Espinal on 06-21-2023 Calcium [Mass/Vol] 8.7 mg/dL 8.5-10.1 [facility] Serum or plasma creatinine m easurement (mass/volume)Ordered By: Sisi Espinal on 06-21-2023 Creatinine [Mass/Vol] 0.90 mg/dL 0.55-1.02 [facility] Comment on above: The validity of the calculated GFR & GFRAA in patients over 70 years has not been determined. Clinical correlation is essential. Serum or plasma urea nitroge n measurement (mass/volume)Ordered By: Sisi Espinal on 06-21-2023 Urea nitrogen [Mass/Vol] 14 mg/dL 7-18 [facility] Thin prep Papanicolaou smear with manual screeningOrdered By: Sisi Espinal on 06-21-2023 Thin prep Papanicolaou smear with manual screening 26 U/L 15-37 [facility] Thin prep Papanicolaou smear with manual screening 7 5-15 [facility] Absolute lymphocyte countOrd ered By: ED PROVIDER on 06-20-2023 Lymphocytes Auto (Unsp spec) [#/Vol] 3.28 10*3/uL 0.83-4.51 [facility] Basophil percentageOrdered B y: Remus Ungur on 06-20-2023 Lactate [Moles/Vol] 1.2 mmol/L 0.4-2.0 [facility] Bilirubin [Mass/Vol] 0.30 mg/dL 0.20-1.00 [facility] Comment on above: For patients on eltr ombopag therapy, use of Dimension [place] TBIL is not recommended. Chloride [Moles/Vol] 106 mmol/L 98-107 [facility] Glucose [Mass/Vol] 118 mg/dL 74-106 [facility] Comment on above: Fasting Glucose resu lt from 100 to 125 mg/dL suggests IMPAIRED HOMEOSTASIS per A.D.A. criteria. Potassium [Moles/Vol] 3.5 mmol/L 3.5-5.1 [facility] Protein [Mass/Vol] 7.7 g/dL 6.4-8.2 [facility] Sodium [Moles/Vol] 138 mmol/L 136-145 [facility] Basophil percentageOrdered B y: ED PROVIDER on 06-20-2023 Basophils/100 WBC (Bld) 0.9 % 0-1 [facility] Eosinophils/100 WBC (Bld) 1.9 % 0-5 [facility] Neutrophils (Bld) [#/Vol] 5.7 10*3/uL 2.0-7.7 [facility] Neutrophils/100 WBC (Bld) 56.8 % 47-70 [facility] WBC (Bld) [#/Vol] 10.1 10*3/uL 4.4-11.0 [facility] Blood erythrocytes count (nu mber/volume)Ordered By: ED PROVIDER on 06-20-2023 RBC (Bld) [#/Vol] 4.82 10*6/uL 4.2-5.4 [facility] Blood hemoglobin measurement (mass/volume)Ordered By: ED PROVIDER on 06-20-2023 Hemoglobin (Bld) [Mass/Vol] 14.0 g/dL 12.0-15.0 [facility] Blood lymphocytes/100 leukoc ytesOrdered By: ED PROVIDER on 06-20-2023 Lymphocytes/100 WBC (Bld) 32.4 % 19-41 [facility] Blood monocytes/100 leukocyt esOrdered By: ED PROVIDER on 06-20-2023 Monocytes/100 WBC (Bld) 7.5 % 0-10 [facility] Blood platelet mean volumeOr dered By: ED PROVIDER on 06-20-2023 Platelet mean volume (Bld) [Entitic vol] 9.8 fL 6.2-12.0 [facility] Determination of erythrocyte mean corpuscular volume (MCV)Ordered By: ED PROVIDER on 06-20-2023 MCV (RBC) [Entitic vol] 92.1 fL 81-99 [facility] Hematocrit Auto (Bld) [Volum e fraction]Ordered By: ED PROVIDER on 06-20-2023 Hematocrit (Bld) [Volume fraction] 44.4 % 37-47 [facility] Laboratory - Chemistry and C hemistry - challengeOrdered By: Patrice Schmidt on 06-20-2023 ALP [Catalytic activity/Vol] 94 U/L 45-117 [facility] ALT [Catalytic activity/Vol] 50 U/L 13-56 [facility] CO2 [Moles/Vol] 27.0 mmol/L 21.0-32.0 [facility] Globulin (S) [Mass/Vol] 3.7 g/dL 2.2-4.2 [facility] Urea nitrogen/Creatinine [Mass ratio] 14.0 mg/mg 10-20 [facility] Laboratory - Hematology and Cell countsOrdered By: ED PROVIDER on 06-20-2023 Erythrocyte distribution width (RBC) [Entitic vol] 44.4 fL 35.1-43.9 [facility] Erythrocyte distribution width (RBC) [Ratio] 13.2 % 11.6-14.6 [facility] Immature granulocytes/100 WBC (Bld) 0.500 % 0.0-0.9 [facility] Comment on above: IG% - Immature Granu locytes (promyelocytes, myelocytes and metamyelocytes) > 1% indicates that a LEFT SHIFT is Present. MCH (RBC) [Entitic mass] 29.0 pg 27.0-32.0 [facility] Nucleated RBC/100 WBC (Bld) [Ratio] 0 % 0-5 [facility] MCHC Auto (RBC) [Mass/Vol]Or dered By: ED PROVIDER on 06-20-2023 MCHC (RBC) [Mass/Vol] 31.5 g/dL 32-36 [facility] No Panel InformationOrdered By: Patrice Schmidt on 06-20-2023 Estimated Creatinine Clearance Calc 51.65 ml/min [facility] Estimated GFR (MDRD) Amer 66 mL/min >60 [facility] Comment on above: GFR Calc Estimated GFR (MDRD) Non-Af Amer 55 mL/min >60 [facility] Comment on above: Non- GFR Calc Platelets bldOrdered By: ED PROVIDER on 06-20-2023 Platelets (Bld) [#/Vol] 416 10*3/uL 150-450 [facility] Serum or plasma albumin anuj urement (mass/volume)Ordered By: Patrice Schmidt on 06-20-2023 Albumin [Mass/Vol] 4.0 g/dL 3.2-5.0 [facility] Serum or plasma albumin/glob ulin mass ratioOrdered By: Patrice Schmidt on 06-20-2023 Albumin/Globulin [Mass ratio] 1.1 {ratio} 0.9-2.4 [facility] Serum or plasma calcium anuj urement (mass/volume)Ordered By: Patrice Schmidt on 06-20-2023 Calcium [Mass/Vol] 9.1 mg/dL 8.5-10.1 [facility] Serum or plasma creatinine m easurement (mass/volume)Ordered By: Patrice Schmidt on 06-20-2023 Creatinine [Mass/Vol] 1.07 mg/dL 0.55-1.02 [facility] Comment on above: The validity of the calculated GFR & GFRAA in patients over 70 years has not been determined. Clinical correlation is essential. Serum or plasma urea nitroge n measurement (mass/volume)Ordered By: Patrice Schmidt on 06-20-2023 Urea nitrogen [Mass/Vol] 15 mg/dL 7-18 [facility] Thin prep Papanicolaou smear with manual screeningOrdered By: Patrice Schmidt on 06-20-2023 Thin prep Papanicolaou smear with manual screening 27 U/L 15-37 [facility] Thin prep Papanicolaou smear with manual screening 5 5-15 [facility] CNOVon 06-02-2023 CNOV Office Visit (UCWSTR ) ----- IVORY IYER ([id number]) 1960 F Date Time Provider Department 06/02/23 8:15 AM JUAN HARRIS [facility] During your visit today, we recorded the following information about you: Temperature Pulse Respiration Blood pressure 99.2 degrees 82/minute 16/minute 122/80 Weight 91.2 kg Juan Harris, MARCELO 06/02/2023 9:03 AM Signed This note was created using [employer]. Subjective Ivory Iyer is a 62 year [...] QT interval chronic SBO (small bowel obstruction) ([facility]) 02/10/2011 Current Outpatient Medications Medication Sig Dispense [...] hyperplasstic rectal polyp ECHO TRANSESOPHAG CONGEN PROBE PLCAZ IMGNG IANDR 02/10/2019 [facility] [...] ear normal. Nose: Congestion present. Mouth/Throat: Lips: [place]. Mouth: Mucous membranes are moist. Pharynx: Pharyngeal [...] - ROUTINE FLU A/B + RSV Juan R Mariela (more content not included)... Normal [facility] ROUTINE FLU A/B + RSVon 10-2 FLUAV RNA HOMAR+probe Ql (Unsp spec) Not detected Normal Not Detected [facility] Comment on above: Order Comment: Speci men Type: SWAB OF INTERNAL NOSE Ordering Facility: [facility] Address: [address] [place] [address] Performed By: #### R TFRSV, 70666-6 #### [facility] CLIA [id number] [address] [place] [address] [place] FLUBV RNA HOMAR+probe Ql (Unsp spec) Not detected Normal Not Detected [facility] Comment on above: Order Comment: Speci men Type: SWAB OF INTERNAL NOSE Ordering Facility: [facility] Address: [address] [place] [address] Performed By: #### R TFRSV, 68929-6 #### [facility] CLIA [id number] [address] [place] [address] [place] RSV A RNA HOMAR+probe Ql (Unsp spec) Not detected Normal Not Detected [facility] Comment on above: Order Comment: Speci men Type: SWAB OF INTERNAL NOSE Ordering Facility: [facility] Address: [address] [place] [address] Performed By: #### R TFRSV, [id number] #### [facility] CLIA [id number] [address] [place] [address] [place] SARS-CoV-2 RNA Resp Ql HOMAR+p connie 06-02-2023 SARS-CoV-2 (COVID-19) RNA HOMAR+probe Ql (Resp) COVID 19 RESULT: Not detected The method used is RT-PCR or an equivalent NAAT method. Reference Range (the expected result in uninfected individuals): Not detected Normal [facility] Comment on above: Performed By: #### R TFRSV, 71111-4 #### [facility] CLIA [id number] [address] [place] [address] OF [facility] STREP A MOLECULAR (POC)on Procedural Control Valid [facility] Strep A (POCT) Negative Negative [facility] Absolute lymphocyte countOrd ered By: Dr. Shrestha on 12-28-2022 Lymphocytes Auto (Unsp spec) [#/Vol] 3.05 10*3/uL 0.83-4.51 [facility] Basophil percentageOrdered B y: Dr. Shrestha on 12-28-2022 Basophils/100 WBC (Bld) 0.9 % 0-1 [facility] Bilirubin [Mass/Vol] 0.30 mg/dL 0.20-1.00 [facility] Comment on above: For patients on eltr ombopag therapy, use of Dimension [place] TBIL is not recommended. Chloride [Moles/Vol] 107 mmol/L 98-107 [facility] Eosinophils/100 WBC (Bld) 1.9 % 0-5 [facility] Glucose [Mass/Vol] 96 mg/dL 74-106 [facility] Neutrophils (Bld) [#/Vol] 4.3 10*3/uL 2.0-7.7 [facility] Neutrophils/100 WBC (Bld) 52.2 % 47-70 [facility] Potassium [Moles/Vol] 4.0 mmol/L 3.5-5.1 [facility] Protein [Mass/Vol] 7.8 g/dL 6.4-8.2 [facility] Sodium [Moles/Vol] 142 mmol/L 136-145 [facility] WBC (Bld) [#/Vol] 8.2 10*3/uL 4.4-11.0 [facility] Blood erythrocytes count (nu mber/volume)Ordered By: Dr. Shrestha on 12-28-2022 RBC (Bld) [#/Vol] 4.78 10*6/uL 4.2-5.4 [facility] Blood hemoglobin measurement (mass/volume)Ordered By: Dr. Shrestha on 12-28-2022 Hemoglobin (Bld) [Mass/Vol] 14.2 g/dL 12.0-15.0 [facility] Blood lymphocytes/100 leukoc ytesOrdered By: Dr. Shrestha on 12-28-2022 Lymphocytes/100 WBC (Bld) 37.1 % 19-41 [facility] Blood monocytes/100 leukocyt esOrdered By: Dr. Shrestha on 12-28-2022 Monocytes/100 WBC (Bld) 7.5 % 0-10 [facility] Blood platelet mean volumeOr dered By: Dr. Shrestha on 12-28-2022 Platelet mean volume (Bld) [Entitic vol] 9.8 fL 6.2-12.0 [facility] Determination of erythrocyte mean corpuscular volume (MCV)Ordered By: Dr. Shrestha on 12-28-2022 MCV (RBC) [Entitic vol] 91.0 fL 81-99 [facility] Erythrocyte sedimentation ra teOrdered By: Dr. Shrestha on 12-28-2022 ESR (Bld) [Velocity] 13 mm/h 0-30 [facility] Hematocrit Auto (Bld) [Volum e fraction]Ordered By: Dr. Shrestha on 12-28-2022 Hematocrit (Bld) [Volume fraction] 43.5 % 37-47 [facility] Laboratory - Chemistry and C hemistry - challengeOrdered By: Dr. Shrestha on 12-28-2022 ALP [Catalytic activity/Vol] 86 U/L 45-117 [facility] ALT [Catalytic activity/Vol] 38 U/L 13-56 [facility] CO2 [Moles/Vol] 27.0 mmol/L 21.0-32.0 [facility] Globulin (S) [Mass/Vol] 3.6 g/dL 2.2-4.2 [facility] Urea nitrogen/Creatinine [Mass ratio] 13.7 mg/mg 10-20 [facility] Laboratory - Hematology and Cell countsOrdered By: Dr. Shrestha on 12-28-2022 Erythrocyte distribution width (RBC) [Entitic vol] 45.0 fL 35.1-43.9 [facility] Erythrocyte distribution width (RBC) [Ratio] 13.4 % 11.6-14.6 [facility] Immature granulocytes/100 WBC (Bld) 0.400 % 0.0-0.9 [facility] Comment on above: IG% - Immature Granu locytes (promyelocytes, myelocytes and metamyelocytes) > 1% indicates that a LEFT SHIFT is Present. MCH (RBC) [Entitic mass] 29.7 pg 27.0-32.0 [facility] Nucleated RBC/100 WBC (Bld) [Ratio] 0 % 0-5 [facility] MCHC Auto (RBC) [Mass/Vol]Or dered By: Dr. Shrestha on 12-28-2022 MCHC (RBC) [Mass/Vol] 32.6 g/dL 32-36 [facility] No Panel InformationOrdered By: Dr. Shrestha on 12-28-2022 Estimated GFR (MDRD) Amer 93 mL/min >60 [facility] Comment on above: GFR Calc Estimated GFR (MDRD) Non-Af Amer 77 mL/min >60 [facility] Comment on above: Non- GFR Calc Platelets bldOrdered By: Dr. Shrestha on 12-28-2022 Platelets (Bld) [#/Vol] 343 10*3/uL 150-450 [facility] Serum or plasma C reactive p rotein measurement (mass/volume)Ordered By: Dr. Shrestha on 12-28-2022 CRP [Mass/Vol] 4.09 mg/L 0.0-3.0 [facility] Comment on above: C-Reactive Protein ( CRP) provides useful information for thediagnosis, therapy and monitoring of inflammatory processesand associated diseases. For the evaluation of Relative Riskfor Cardiovascular Disease, a High Sensitivity CRP (HSCRP)should be ordered. Serum or plasma albumin anuj urement (mass/volume)Ordered By: Dr. Shrestha on 12-28-2022 Albumin [Mass/Vol] 4.2 g/dL 3.2-5.0 [facility] Serum or plasma albumin/glob ulin mass ratioOrdered By: Dr. Shrestha on 12-28-2022 Albumin/Globulin [Mass ratio] 1.2 {ratio} 0.9-2.4 [facility] Serum or plasma calcium anuj urement (mass/volume)Ordered By: Dr. Shrestha on 12-28-2022 Calcium [Mass/Vol] 9.5 mg/dL 8.5-10.1 [facility] Serum or plasma creatinine m easurement (mass/volume)Ordered By: Dr. Shrestha on 12-28-2022 Creatinine [Mass/Vol] 0.80 mg/dL 0.55-1.02 [facility] Comment on above: The validity of the calculated GFR & GFRAA in patients over 70 years has not been determined. Clinical correlation is essential. Serum or plasma urea nitroge n measurement (mass/volume)Ordered By: Dr. Shrestha on 12-28-2022 Urea nitrogen [Mass/Vol] 11 mg/dL - [facility] Thin prep Papanicolaou smear with manual screeningOrdered By: Dr. Shrestha on 12-28-2022 Thin prep Papanicolaou smear with manual screening 24 U/L 15-37 [facility] [facility] Th[facility] Papanicolaou smear with manual screening 8 5-15 [facility] Absolute lymphocyte countOrd ered By: Dr. Elizalde on 11-24-2022 Lymphocytes Auto (Unsp spec) [#/Vol] 1.57 10*3/uL 0.83-4.51 [facility] Basophil percentageOrdered B y: Dr. Elizalde on 11-24-2022 Basophil percentage 2.9 mg/dL 2.5-4.9 [facility] Basophils/100 WBC (Bld) 0.7 % 0-1 [facility] Bilirubin [Mass/Vol] 0.50 mg/dL 0.20-1.00 [facility] Comment on above: For patients on eltr ombopag therapy, use of Dimension [place] TBIL is not recommended. Chloride [Moles/Vol] 107 mmol/L 98-107 [facility] Eosinophils/100 WBC (Bld) 1.2 % 0-5 [facility] Glucose [Mass/Vol] 122 mg/dL 74-106 [facility] Comment on above: Fasting Glucose resu lt from 100 to 125 mg/dL suggests IMPAIRED HOMEOSTASIS per A.D.A. criteria. Neutrophils (Bld) [#/Vol] 7.1 10*3/uL 2.0-7.7 [facility] Neutrophils/100 WBC (Bld) 72.3 % 47-70 [facility] Potassium [Moles/Vol] 3.6 mmol/L 3.5-5.1 [facility] Protein [Mass/Vol] 7.0 g/dL 6.4-8.2 [facility] Sodium [Moles/Vol] 136 mmol/L 136-145 [facility] WBC (Bld) [#/Vol] 9.9 10*3/uL 4.4-11.0 [facility] Blood erythrocytes count (nu mber/volume)Ordered By: Dr. Elizalde on 11-24-2022 RBC (Bld) [#/Vol] 4.03 10*6/uL 4.2-5.4 [facility] Blood hemoglobin measurement (mass/volume)Ordered By: Dr. Elizalde on 11-24-2022 Hemoglobin (Bld) [Mass/Vol] 11.8 g/dL 12.0-15.0 [facility] Blood lymphocytes/100 leukoc ytesOrdered By: Dr. Elizalde on 11-24-2022 Lymphocytes/100 WBC (Bld) 15.9 % 19-41 [facility] Blood monocytes/100 leukocyt esOrdered By: Dr. Elizalde on 11-24-2022 Monocytes/100 WBC (Bld) 9.4 % 0-10 [facility] Blood platelet mean volumeOr dered By: Dr. Elizalde on 11-24-2022 Platelet mean volume (Bld) [Entitic vol] 9.9 fL 6.2-12.0 [facility] Determination of erythrocyte mean corpuscular volume (MCV)Ordered By: Dr. Elizalde on 11-24-2022 MCV (RBC) [Entitic vol] 92.8 fL 81-99 [facility] Hematocrit Auto (Bld) [Volum e fraction]Ordered By: Dr. Elizalde on 11-24-2022 Hematocrit (Bld) [Volume fraction] 37.4 % 37-47 [facility] Laboratory - Chemistry and C hemistry - challengeOrdered By: Dr. Elizalde on 11-24-2022 ALP [Catalytic activity/Vol] 65 U/L 45-117 [facility] ALT [Catalytic activity/Vol] 18 U/L 13-56 [facility] CO2 [Moles/Vol] 24.0 mmol/L 21.0-32.0 [facility] Globulin (S) [Mass/Vol] 4.1 g/dL 2.2-4.2 [facility] Magnesium [Mass/Vol] 2.5 mg/dL 1.6-2.6 [facility] Urea nitrogen/Creatinine [Mass ratio] 13.4 mg/mg 10-20 [facility] Laboratory - Hematology and Cell countsOrdered By: Dr. Elizalde on 11-24-2022 Erythrocyte distribution width (RBC) [Entitic vol] 45.4 fL 35.1-43.9 [facility] Erythrocyte distribution width (RBC) [Ratio] 13.2 % 11.6-14.6 [facility] Immature granulocytes/100 WBC (Bld) 0.500 % 0.0-0.9 [facility] Comment on above: IG% - Immature Granu locytes (promyelocytes, myelocytes and metamyelocytes) > 1% indicates that a LEFT SHIFT is Present. MCH (RBC) [Entitic mass] 29.3 pg 27.0-32.0 [facility] Nucleated RBC/100 WBC (Bld) [Ratio] 0 % 0-5 [facility] MCHC Auto (RBC) [Mass/Vol]Or dered By: Dr. Elizalde on 11-24-2022 MCHC (RBC) [Mass/Vol] 31.6 g/dL 32-36 [facility] No Panel InformationOrdered By: Dr. Elizalde on 11-24-2022 Estimated Creatinine Clearance Calc 73.69 ml/min [facility] Estimated GFR (MDRD) Amer 101 mL/min >60 [facility] Comment on above: GFR Calc Estimated GFR (MDRD) Non-Af Amer 83 mL/min >60 [facility] Comment on above: Non- GFR Calc Platelets bldOrdered By: Dr. Elizalde on 11-24-2022 Platelets (Bld) [#/Vol] 329 10*3/uL 150-450 [facility] Serum or plasma albumin anuj urement (mass/volume)Ordered By: Dr. Elizlade on 11-24-2022 Albumin [Mass/Vol] 2.9 g/dL 3.2-5.0 [facility] Serum or plasma albumin/glob ulin mass ratioOrdered By: Dr. Elizalde on 11-24-2022 Albumin/Globulin [Mass ratio] 0.7 {ratio} 0.9-2.4 [facility] Serum or plasma calcium anuj urement (mass/volume)Ordered By: Dr. Elizalde on 11-24-2022 Calcium [Mass/Vol] 8.7 mg/dL 8.5-10.1 [facility] Serum or plasma creatinine m easurement (mass/volume)Ordered By: Dr. Elizalde on 11-24-2022 Creatinine [Mass/Vol] 0.75 mg/dL 0.55-1.02 [facility] Comment on above: The validity of the calculated GFR & GFRAA in patients over 70 years has not been determined. Clinical correlation is essential. Serum or plasma urea nitroge n measurement (mass/volume)Ordered By: Dr. Elizalde on 11-24-2022 Urea nitrogen [Mass/Vol] 10 mg/dL 7-18 [facility] Thin prep Papanicolaou smear with manual screeningOrdered By: Dr. Elizalde on 11-24-2022 Thin prep Papanicolaou smear with manual screening 10 U/L 15-37 [facility] Thin prep Papanicolaou smear with manual screening 5 5-15 [facility] Absolute lymphocyte countOrd ered By: Dr. Noble on 11-23-2022 Lymphocytes Auto (Unsp spec) [#/Vol] 1.82 10*3/uL 0.83-4.51 [facility] Basophil percentageOrdered B y: Dr. Noble on 11-23-2022 Basophils/100 WBC (Bld) 0.4 % 0-1 [facility] Chloride [Moles/Vol] 104 mmol/L 98-107 [facility] Eosinophils/100 WBC (Bld) 0.5 % 0-5 [facility] Glucose [Mass/Vol] 106 mg/dL 74-106 [facility] Comment on above: Fasting Glucose resu lt from 100 to 125 mg/dL suggests IMPAIRED HOMEOSTASIS per A.D.A. criteria. Neutrophils (Bld) [#/Vol] 10.3 10*3/uL 2.0-7.7 [facility] Neutrophils/100 WBC (Bld) 76.2 % 47-70 [facility] Potassium [Moles/Vol] 3.6 mmol/L 3.5-5.1 [facility] Sodium [Moles/Vol] 136 mmol/L 136-145 [facility] WBC (Bld) [#/Vol] 13.5 10*3/uL 4.4-11.0 [facility] Blood erythrocytes count (nu mber/volume)Ordered By: Dr. Noble on 11-23-2022 RBC (Bld) [#/Vol] 4.67 10*6/uL 4.2-5.4 [facility] Blood hemoglobin measurement (mass/volume)Ordered By: Dr. Noble on 11-23-2022 Hemoglobin (Bld) [Mass/Vol] 13.9 g/dL 12.0-15.0 [facility] Blood lymphocytes/100 leukoc ytesOrdered By: Dr. Noble on 11-23-2022 Lymphocytes/100 WBC (Bld) 13.5 % 19-41 [facility] Blood monocytes/100 leukocyt esOrdered By: Dr. Noble on 11-23-2022 Monocytes/100 WBC (Bld) 9.0 % 0-10 [facility] Blood platelet mean volumeOr dered By: Dr. Noble on 11-23-2022 Platelet mean volume (Bld) [Entitic vol] 9.5 fL 6.2-12.0 [facility] Determination of erythrocyte mean corpuscular volume (MCV)Ordered By: Dr. Noble on 11-23-2022 MCV (RBC) [Entitic vol] 90.1 fL 81-99 [facility] Comment on above: Delta: 95.2 on 11/21-1300 Hematocrit Auto (Bld) [Volum e fraction]Ordered By: Dr. Noble on 11-23-2022 Hematocrit (Bld) [Volume fraction] 42.1 % 37-47 [facility] Laboratory - Chemistry and C hemistry - challengeOrdered By: Dr. Noble on 11-23-2022 CO2 [Moles/Vol] 24.0 mmol/L 21.0-32.0 [facility] Urea nitrogen/Creatinine [Mass ratio] 13.0 mg/mg 10-20 [facility] Laboratory - Hematology and Cell countsOrdered By: Dr. Noble on 11-23-2022 Erythrocyte distribution width (RBC) [Entitic vol] 44.1 fL 35.1-43.9 [facility] Erythrocyte distribution width (RBC) [Ratio] 13.4 % 11.6-14.6 [facility] Immature granulocytes/100 WBC (Bld) 0.400 % 0.0-0.9 [facility] Comment on above: IG% - Immature Granu locytes (promyelocytes, myelocytes and metamyelocytes) > 1% indicates that a LEFT SHIFT is Present. MCH (RBC) [Entitic mass] 29.8 pg 27.0-32.0 [facility] Nucleated RBC/100 WBC (Bld) [Ratio] 0 % 0-5 [facility] MCHC Auto (RBC) [Mass/Vol]Or dered By: Dr. Noble on 11-23-2022 MCHC (RBC) [Mass/Vol] 33.0 g/dL 32-36 [facility] Comment on above: Delta: 31.1 on 11/21-1300 No Panel InformationOrdered By: Dr. Noble on 11-23-2022 Estimated Creatinine Clearance Calc 65.80 ml/min [facility] Estimated GFR (MDRD) Amer 87 mL/min >60 [facility] Comment on above: GFR Calc Estimated GFR (MDRD) Non-Af Amer 72 mL/min >60 [facility] Comment on above: Non- GFR Calc Platelets bldOrdered By: Dr. Noble on 11-23-2022 Platelets (Bld) [#/Vol] 362 10*3/uL 150-450 [facility] Serum or plasma calcium anuj urement (mass/volume)Ordered By: Dr. Noble on 11-23-2022 Calcium [Mass/Vol] 9.4 mg/dL 8.5-10.1 [facility] Serum or plasma creatinine m easurement (mass/volume)Ordered By: Dr. Noble on 11-23-2022 Creatinine [Mass/Vol] 0.84 mg/dL 0.55-1.02 [facility] Comment on above: The validity of the calculated GFR & GFRAA in patients over 70 years has not been determined. Clinical correlation is essential. Serum or plasma urea nitroge n measurement (mass/volume)Ordered By: Dr. Noble on 11-23-2022 Urea nitrogen [Mass/Vol] 11 mg/dL 7-18 [facility] Thin prep Papanicolaou smear with manual screeningOrdered By: Dr. Noble on 11-23-2022 Thin prep Papanicolaou smear with manual screening 8 5-15 [facility] Absolute lymphocyte countOrd ered By: Johnnie Sequeira on 11-21-2022 Lymphocytes Auto (Unsp spec) [#/Vol] 2.33 10*3/uL 0.83-4.51 [facility] Basophil percentageOrdered B y: Johnnie Sequeira on 11-21-2022 Bilirubin [Mass/Vol] 0.50 mg/dL 0.20-1.00 [facility] Comment on above: For patients on eltr ombopag therapy, use of Dimension [place] TBIL is not recommended. Chloride [Moles/Vol] 107 mmol/L 98-107 [facility] Glucose [Mass/Vol] 99 mg/dL 74-106 [facility] Potassium [Moles/Vol] 3.6 mmol/L 3.5-5.1 [facility] Protein [Mass/Vol] 7.5 g/dL 6.4-8.2 [facility] Sodium [Moles/Vol] 139 mmol/L 136-145 [facility] Basophils/100 WBC (Bld) 0.7 % 0-1 [facility] Eosinophils/100 WBC (Bld) 0.8 % 0-5 [facility] Neutrophils (Bld) [#/Vol] 8.1 10*3/uL 2.0-7.7 [facility] Neutrophils/100 WBC (Bld) 70.5 % 47-70 [facility] WBC (Bld) [#/Vol] 11.4 10*3/uL 4.4-11.0 [facility] Blood erythrocytes count (nu mber/volume)Ordered By: Johnnie Sequeira on 11-21-2022 RBC (Bld) [#/Vol] 4.96 10*6/uL 4.2-5.4 [facility] Blood hemoglobin measurement (mass/volume)Ordered By: Johnnie Sequeira on 11-21-2022 Hemoglobin (Bld) [Mass/Vol] 14.7 g/dL 12.0-15.0 [facility] Blood lymphocytes/100 leukoc ytesOrdered By: Johnnie Sequeira on 11-21-2022 Lymphocytes/100 WBC (Bld) 20.4 % 19-41 [facility] Blood monocytes/100 leukocyt esOrdered By: Johnnie Sequeira on 11-21-2022 Monocytes/100 WBC (Bld) 7.1 % 0-10 [facility] Blood platelet mean volumeOr dered By: Johnnie Sequeira on 11-21-2022 Platelet mean volume (Bld) [Entitic vol] 9.8 fL 6.2-12.0 [facility] Determination of erythrocyte mean corpuscular volume (MCV)Ordered By: Johnnie Sequeira on 11-21-2022 MCV (RBC) [Entitic vol] 95.2 fL 81-99 [facility] Direct bilirubinOrdered By: Johnnie Sequeira on 11-21-2022 Bilirubin.direct [Mass/Vol] 0.12 mg/dL 0.00-0.30 [facility] Hematocrit Auto (Bld) [Volum e fraction]Ordered By: Johnnie Sequeira on 11-21-2022 Hematocrit (Bld) [Volume fraction] 47.2 % 37-47 [facility] Laboratory - Chemistry and C hemistry - challengeOrdered By: Johnnie Sequeira on 11-21-2022 ALP [Catalytic activity/Vol] 84 U/L 45-117 [facility] ALT [Catalytic activity/Vol] 30 U/L 13-56 [facility] CO2 [Moles/Vol] 25.0 mmol/L 21.0-32.0 [facility] Globulin (S) [Mass/Vol] 3.5 g/dL 2.2-4.2 [facility] Lipase [Catalytic activity/Vol] 37 U/L 13-75 [facility] Comment on above: Please note:LIPASE r evised reference range effective 22. New Lipase methodology. Expected to produce lower values than the previous assay method. NEW Reference Range: 13 - 75 U/L Urea nitrogen/Creatinine [Mass ratio] 11.6 mg/mg 10-20 [facility] Laboratory - Hematology and Cell countsOrdered By: Johnnie Sequeira on 11-21-2022 Erythrocyte distribution width (RBC) [Entitic vol] 46.9 fL 35.1-43.9 [facility] Erythrocyte distribution width (RBC) [Ratio] 13.4 % 11.6-14.6 [facility] Immature granulocytes/100 WBC (Bld) 0.500 % 0.0-0.9 [facility] Comment on above: IG% - Immature Granu locytes (promyelocytes, myelocytes and metamyelocytes) > 1% indicates that a LEFT SHIFT is Present. MCH (RBC) [Entitic mass] 29.6 pg 27.0-32.0 [facility] Nucleated RBC/100 WBC (Bld) [Ratio] 0 % 0-5 [facility] MCHC Auto (RBC) [Mass/Vol]Or dered By: Johnnie Sequeira on 11-21-2022 MCHC (RBC) [Mass/Vol] 31.1 g/dL 32-36 [facility] No Panel InformationOrdered By: Johnnie Sequeira on 11-21-2022 Estimated Creatinine Clearance Calc 70.86 ml/min [facility] Estimated GFR (MDRD) Amer 96 mL/min >60 [facility] Comment on above: GFR Calc Estimated GFR (MDRD) Non-Af Amer 79 mL/min >60 [facility] Comment on above: Non- GFR Calc Platelets bldOrdered By: Demi Sequeira on 11-21-2022 Platelets (Bld) [#/Vol] 384 10*3/uL 150-450 [facility] Serum or plasma albumin anuj urement (mass/volume)Ordered By: Johnnie Sequeira on 11-21-2022 Albumin [Mass/Vol] 4.0 g/dL 3.2-5.0 [facility] Serum or plasma calcium anuj urement (mass/volume)Ordered By: Johnnie Sequeira on 11-21-2022 Calcium [Mass/Vol] 9.3 mg/dL 8.5-10.1 [facility] Serum or plasma creatinine m easurement (mass/volume)Ordered By: Johnnie Sequeira on 11-21-2022 Creatinine [Mass/Vol] 0.78 mg/dL 0.55-1.02 [facility] Comment on above: The validity of the calculated GFR & GFRAA in patients over 70 years has not been determined. Clinical correlation is essential. Serum or plasma urea nitroge n measurement (mass/volume)Ordered By: Johnnie Sequeira on 11-21-2022 Urea nitrogen [Mass/Vol] 9 mg/dL 7-18 [facility] Thin prep Papanicolaou smear with manual screeningOrdered By: Johnnie Sequeira on 11-21-2022 Thin prep Papanicolaou smear with manual screening 20 U/L 15-37 [facility] Thin prep Papanicolaou smear with manual screening 7 5-15 [facility] CNPNon 08-22-2022 [facility] Telephone ([facility]) ----- IVORY IYER ([id number]) 1960 F Date Time Provider Department 08/22/22 CHERIE LEUNG [facility] During your visit today, we recorded the following information about you: EDY Rendon 08/22/2022 7:40 AM Signed Please let patient know negative for covid and flu. Mallory Casillas LPN 08/22/2022 8:06 AM Signed Unable to reach patient and mailbox is full-try later.Mallory Weller LPN 08/22/2022 11:35 AM Signed Phone call placed no answer unable to leave a message, mailbox reported as full, MyChart logon 08/21/2022 results viewed. Jeffery Weller [employer]NF[employer] AGENT Allergies As of Date: 08/22/2022 Noted Allergy Reaction CODEINE 01/24/2007 5 - Intolerance Comments: lightheadedness PROZAC (FLUOXETINE HCL) 01/24/2007 Date Reviewed: 08/21/2022 Reviewed by: Jeovanny Almanza APRN.LOCK PLATER - Fully Assessed Reason for Visit: Results [...] Status:Closed by JEFFERY WELLER LPN on 08/22/22 [facility] CNOVon 08-21-2022 CNOV Office Visit ([facility]WSTR ) ----- IVORY IYER ([id number]) 1960 F Date Time Provider Department 08/21/22 1:30 PM JEOVANNY ALMANZA [facility] During your visit today, we recorded the following information about you: Temperature Pulse Respiration Blood pressure 98.2 degrees 87/minute 20/minute 148/82 Weight 84.9 kg Jeovanny Almanza, CHIKA.LOCK PLATER 08/21/2022 2:22 PM Signed Subjective HPI Nontoxic-appearing [...] hyperplasstic rectal polyp ECHO TRANSESOPHAG CONGEN PROBE PLCMT IMGNG IANDR 02/10/2019 [facility] [...] ear normal. Nose: Congestion present. Mouth/Throat: Lips: [place]. Mouth: Mucous membranes are moist. Pharynx: Oropharynx is clear. Uvula midline. Posterior oropharyngeal erythema present. No pharyngeal swelling, oropharyngeal exudate or uvula swelling. Eyes: Conjunctiva/sclera: Conjunctivae normal. Pupils: Pupils are equal, round, and reactive to light. Cardiovascular: Rate and Rhythm: Normal rate and regular rhythm. Heart sounds: Normal heart sounds. Pulmonary: Effort: Pulmonary effort is normal. No tachypn (more content not included)... Normal [facility] STREP A MOLECULAR (POC)on Procedural Control Valid [facility] Strep A (POCT) Negative Negative [facility] Cervical or vagninal specime n microscopic examination by cytology stain (reported ason 04-27-2022 Cytology report Cyto stain Doc (Cvx/Vag) Comment . [facility] Work Phone: Comment on above: The Pap smear is a s creening test designed to aid in thedetection of premalignant and malignant conditions of theuterine cervix. It is not a diagnostic procedure andshould not be used as the sole means of detecting cervicalcancer. Both false-positive and false-negative reports dooccur. Detection in cervical specim en of any of human papilloma virus (HPV) 16, 18, 31, 33,on 04-27-2022 HPV 16+18+31+33+35+39+45+51+5 2+56+58+59+66+68 DNA Probe+sig amp Ql (Cvx) Negative Negative [facility] Work Phone: Comment on above: This nucleic acid am plification test detects fourteen high-risk HPV types (16,18,31,33,35,39,45,51,52,56,58,59,66,68)without differentiation.Performed at: - [facility] [id number] Director: Cindy Montiel MD, Phone: [phone] at: =G - [facility] [address] [id number] Director: Cindy Montiel MD, Phone: [phone] Laboratory - Cytologyon 04-13 Overnight Associate Cyto stain Nom (Cvx/Vag) [ID] Comment . [facility] Work Phone: Comment on above: Randell Remy, Cyto technologist (ASCP) Laboratory - Miscellaneous t estson 04-27-2022 Service comment (Unsp spec) [Interp] Comment . [facility] Work Phone: Comment on above: This liquid based Th inPrep(R) pap test was screened withthe use of an image guided system. Service comment (Unsp spec) [Interp] . . [facility] Work Phone: No Panel Informationon 04-27 Pathology report final diagnosis Narrative Comment . [facility] Work Phone: Comment on above: NEGATIVE FOR INTRAEP ITHELIAL LESION OR MALIGNANCY. Basophil percentageon 2021 Bilirubin [Mass/Vol] 0.30 mg/dL 0.20-1.00 [facility] Work Phone: Comment on above: For patients on eltr ombopag therapy, use of Dimension [place] TBIL is not recommended. Chloride [Moles/Vol] 108 mmol/L 98-107 [facility] Work Phone: Cholesterol [Mass/Vol] 231 mg/dL <200 [facility] Work Phone: Comment on above: <200 mg/dL Desirable 200-240 mg/dL Borderline >240 mg/dL High Risk Glucose [Mass/Vol] 119 mg/dL 74-106 [facility] Work Phone: Comment on above: Fasting Glucose resu lt from 100 to 125 mg/dL suggests IMPAIRED HOMEOSTASIS per A.D.A. criteria. Potassium [Moles/Vol] 3.6 mmol/L 3.5-5.1 [facility] Work Phone: Protein [Mass/Vol] 7.6 g/dL 6.4-8.2 [facility] Work Phone: Sodium [Moles/Vol] 140 mmol/L 136-145 [facility] Work Phone: Triglyceride [Mass/Vol] 194 mg/dL <199 [facility] Work Phone: Comment on above: The drugs N-Acetylcy steine and Metamizole may falsely depress this assay.Serum Triglycerides Reference Interval Normal <150 mg/dL Borderline high 150 - 199 mg/dL High 200 - 499 mg/dL Very High > or = 500 mg/dL Laboratory - Chemistry and C hemistry - challengeon 03-23-2022 ALP [Catalytic activity/Vol] 83 U/L 45-117 [facility] Work Phone: ALT [Catalytic activity/Vol] 47 U/L 13-56 [facility] Work Phone: CO2 [Moles/Vol] 27.0 mmol/L 21.0-32.0 [facility] Work Phone: Globulin (S) [Mass/Vol] 3.9 g/dL 2.2-4.2 [facility] Work Phone: Urea nitrogen/Creatinine [Mass ratio] 16.2 mg/mg 10-20 [facility] Work Phone: No Panel Informationon 03-23 Estimated GFR (MDRD) Amer 73 mL/min >60 [facility] Work Phone: Comment on above: GFR Calc Estimated GFR (MDRD) Non-Af Amer 60 mL/min >60 [facility] Work Phone: Comment on above: Non- GFR Calc Serum or plasma albumin anuj urement (mass/volume)on 03-23-2022 Albumin [Mass/Vol] 3.7 g/dL 3.2-5.0 [facility] Work Phone: Serum or plasma albumin/glob ulin mass ratioon 03-23-2022 Albumin/Globulin [Mass ratio] 0.9 {ratio} 0.9-2.4 [facility] Work Phone: Serum or plasma calcium anuj urement (mass/volume)on 03-23-2022 Calcium [Mass/Vol] 8.5 mg/dL 8.5-10.1 [facility] Work Phone: Serum or plasma cholesterol in HDL measurement (mass/volume)on 03-23-2022 Cholesterol in HDL [Mass/Vol] 49 mg/dL >40 [facility] Work Phone: Comment on above: The drugs N-Acetylcy steine and Metamizole may falsely depress this assay. Reference Range HDL <40 mg/dL Low HDL Cholesterol HDL >or= 60 mg/dL High HDL Cholesterol Serum or plasma cholesterol in VLDL measurement (mass/volume)on 03-23-2022 Cholesterol in VLDL [Mass/Vol] 39 mg/dL 5-40 [facility] Work Phone: Serum or plasma creatinine m easurement (mass/volume)on 03-23-2022 Creatinine [Mass/Vol] 0.99 mg/dL 0.55-1.02 [facility] Work Phone: Comment on above: The validity of the calculated GFR & GFRAA in patients over 70 years has not been determined. Clinical correlation is essential. Serum or plasma low density lipoprotein (LDL) cholesterol measurement (mass/volume)on 03-23-2022 Cholesterol in LDL [Mass/Vol] 143 mg/dL 0-130 [facility] Work Phone: Serum or plasma urea nitroge n measurement (mass/volume)on 03-23-2022 Urea nitrogen [Mass/Vol] 16 mg/dL 7-18 [facility] Work Phone: Thin prep Papanicolaou smear with manual screeningon 03-23-2022 Thin prep Papanicolaou smear with manual screening 26 U/L 15-37 [facility] Work Phone: Thin prep Papanicolaou smear with manual screening 5 5-15 [facility] Work Phone: Absolute lymphocyte counton 02-20-2022 Lymphocytes Auto (Unsp spec) [#/Vol] 2.89 10*3/uL 0.83-4.51 [facility] Work Phone: Basophil percentageon 2021 Basophils/100 WBC (Bld) 0.8 % 0-1 [facility] Work Phone: Bilirubin [Mass/Vol] 0.40 mg/dL 0.20-1.00 [facility] Work Phone: Comment on above: For patients on eltr ombopag therapy, use of Dimension [place] TBIL is not recommended. Chloride [Moles/Vol] 105 mmol/L 98-107 [facility] Work Phone: Eosinophils/100 WBC (Bld) 1.0 % 0-5 [facility] Work Phone: Glucose [Mass/Vol] 93 mg/dL 74-106 [facility] Work Phone: Neutrophils (Bld) [#/Vol] 5.2 10*3/uL 2.0-7.7 [facility] Work Phone: Neutrophils/100 WBC (Bld) 58.9 % 47-70 [facility] Work Phone: Potassium [Moles/Vol] 3.9 mmol/L 3.5-5.1 [facility] Work Phone: Protein [Mass/Vol] 8.1 g/dL 6.4-8.2 [facility] Work Phone: Sodium [Moles/Vol] 141 mmol/L 136-145 [facility] Work Phone: WBC (Bld) [#/Vol] 8.8 10*3/uL 4.4-11.0 [facility] Work Phone: Blood erythrocytes count (nu mber/volume)on 02-20-2022 RBC (Bld) [#/Vol] 5.04 10*6/uL 4.2-5.4 [facility] Work Phone: Blood hemoglobin measurement (mass/volume)on 02-20-2022 Hemoglobin (Bld) [Mass/Vol] 14.8 g/dL 12.0-15.0 [facility] Work Phone: Blood lymphocytes/100 leukoc yteson 02-20-2022 Lymphocytes/100 WBC (Bld) 32.8 % 19-41 [facility] Work Phone: Blood monocytes/100 leukocyt eson 02-20-2022 Monocytes/100 WBC (Bld) 6.0 % 0-10 [facility] Work Phone: Blood platelet mean volumeon 02-20-2022 Platelet mean volume (Bld) [Entitic vol] 9.7 fL 6.2-12.0 [facility] Work Phone: Determination of erythrocyte mean corpuscular volume (MCV)on 02-20-2022 MCV (RBC) [Entitic vol] 91.7 fL 81-99 [facility] Work Phone: Hematocrit Auto (Bld) [Volum e fraction]on 02-20-2022 Hematocrit (Bld) [Volume fraction] 46.2 % 37-47 [facility] Work Phone: [phone] Laboratory - Chemistry and C hemistry - challengeon 02-20-2022 ALP [Catalytic activity/Vol] 83 U/L 45-117 [facility] Work Phone: ALT [Catalytic activity/Vol] 40 U/L 13-56 [facility] Work Phone: CO2 [Moles/Vol] 27.0 mmol/L 21.0-32.0 [facility] Work Phone: Globulin (S) [Mass/Vol] 4.0 g/dL 2.2-4.2 [facility] Work Phone: Magnesium [Mass/Vol] 2.5 mg/dL 1.6-2.6 [facility] Work Phone: Urea nitrogen/Creatinine [Mass ratio] 12.3 mg/mg 10-20 [facility] Work Phone: Laboratory - Hematology and Cell countson 02-20-2022 Erythrocyte distribution width (RBC) [Entitic vol] 44.8 fL 35.1-43.9 [facility] Work Phone: Erythrocyte distribution width (RBC) [Ratio] 13.4 % 11.6-14.6 [facility] Work Phone: Immature granulocytes/100 WBC (Bld) 0.500 % 0.0-0.9 [facility] Work Phone: Comment on above: IG% - Immature Granu locytes (promyelocytes, myelocytes and metamyelocytes) > 1% indicates that a LEFT SHIFT is Present. MCH (RBC) [Entitic mass] 29.4 pg 27.0-32.0 [facility] Work Phone: Nucleated RBC/100 WBC (Bld) [Ratio] 0 % 0-5 [facility] Work Phone: MCHC Auto (RBC) [Mass/Vol]on 02-20-2022 MCHC (RBC) [Mass/Vol] 32.0 g/dL 32-36 [facility] Work Phone: No Panel Informationon 02-20 Estimated GFR (MDRD) Amer 92 mL/min >60 [facility] Work Phone: Comment on above: GFR Calc Estimated GFR (MDRD) Non-Af Amer 76 mL/min >60 [facility] Work Phone: Comment on above: Non- GFR Calc Platelets bldon 02-20-2022 Platelets (Bld) [#/Vol] 393 10*3/uL 150-450 [facility] Work Phone: Serum or plasma C reactive p rotein measurement (mass/volume)on 02-20-2022 CRP [Mass/Vol] 6.40 mg/L 0.0-3.0 [facility] Work Phone: Comment on above: C-Reactive Protein ( CRP) provides useful information for thediagnosis, therapy and monitoring of inflammatory processesand associated diseases. For the evaluation of Relative Riskfor Cardiovascular Disease, a High Sensitivity CRP (HSCRP)should be ordered. Serum or plasma albumin anuj urement (mass/volume)on 02-20-2022 Albumin [Mass/Vol] 4.1 g/dL 3.2-5.0 [facility] Work Phone: Serum or plasma albumin/glob ulin mass ratioon 02-20-2022 Albumin/Globulin [Mass ratio] 1.0 {ratio} 0.9-2.4 [facility] Work Phone: Serum or plasma calcium anuj urement (mass/volume)on 02-20-2022 Calcium [Mass/Vol] 9.3 mg/dL 8.5-10.1 [facility] Work Phone: Serum or plasma creatinine m easurement (mass/volume)on 02-20-2022 Creatinine [Mass/Vol] 0.81 mg/dL 0.55-1.02 [facility] Work Phone: Comment on above: The validity of the calculated GFR & GFRAA in patients over 70 years has not been determined. Clinical correlation is essential. Serum or plasma urea nitroge n measurement (mass/volume)on 02-20-2022 Urea nitrogen [Mass/Vol] 10 mg/dL 7-18 [facility] Work Phone: Thin prep Papanicolaou smear with manual screeningon 02-20-2022 Thin prep Papanicolaou smear with manual screening 23 U/L 15-37 [facility] Work Phone: Thin prep Papanicolaou smear with manual screening 9 5-15 [facility] Work Phone: CNCOon 04-02-2019 CNCO Letter Text [facility] CNOVon 04-02-2019 CNOV Office Visit (MATY WRIGHT) ----- IVORY IYER ([id number]) 1960 F Date Time Provider Department 04/02/19 2:00 PM NIALL LOU During your visit today, we recorded the following information about you: Pulse Respiration Blood pressure Weight 83/minute 20/minute 140/74 92.5 kg Height 1.702 m Randi Kim LPN 04/02/2019 2:17 PM Signed CARDIAC REHAB 5 METER WALK TEST SERVICE DATE: 04/02/2019 SERVICE TIME: 1415 ASSESSMENT: SIGNATURE: Randi Kim LPN PATIENT NAME: Ivory Iyer DATE: April 02, 2019 TIME: 2:16 PM PAGER/CONTACT #: [phone] 1. 4.7 sec 2. 4.5 sec 3. [...] procedure. We will refer you to Dr. Isbell'linsey for this issue. This is not an [...] call us if you have any concerns/questions: [phone] TIM Erickson MD 04/02/2019 3:21 PM Signed [...] and 2012 bowel surgery - ALONDRA 02/10/2019 [facility] by Jimi Yi MD - TOTAL [...] Niall Lou MD Referring Provider: FADUMO VO [[id number]] Allergies As of Date: 04/02/2019 Noted Allergy Reaction CODEINE 01/24/2007 5 - Intolerance Comments: lightheadedness PROZAC (FLUOXETINE HCL) 01/24/2007 Date Reviewed: 04/02/2019 Reviewed by: Randi (Jaja) Julio - Fully Assessed Reason for Visit: New Patient Evaluation [154] Cmt: Marfan syndrome, enlarged aorta, ref by Dr. Yi images from echo, cardiac cath in system Primary Visit Diagnosis:Moderate aortic insufficiency [I35.1] Other Visit Diagnosis:Thoracic aortic aneurysm without rupture (HCC) [I71.2] Order(s):CTA CHEST (GATED) W IVCON [1400659] Order #: [id number] FUTURE CONSULT TO THORACIC [19991114] Order #: [id number]: 1 CREATININE BLD [SQCRET] Order #: [id number] FUTURE Prescriptions as of 04/02/2019 Sig: OLMESARTAN [...] [D12.6] INVALID FOR* SBO (small bowel obstruction) ([facility]) [K56.609] INVALID FOR* Generalized abdominal pain [R10.84] [...] call us if you have any concerns/questions: [phone] Cortes Chong APRN.LOCK PLATER Visit Notes: >> Randi Kim Wed Apr 02, 2019 2:16 PM Status: Signed CARDIAC REHAB 5 METER WALK TEST SERVICE DATE: 04/02/2019 SERVICE TIME: 6 ASSESSMENT: SIGNATURE: Randi Kim LPN PATIENT NAME: Ivory Iyer DATE: April 02, 2019 TIME: 2:16 PM PAGER/CONTACT #: [phone] 1. 4.7 sec 2. 4.5 sec 3. 4.4 sec Randi Kim LPN Level of Service: NEW PATIENT VISIT LEVEL 4 [[id number]] Letter Text Encounter Status:Closed by NIALL LOU MD on 04/02/19 [facility] HISTORY PHYSICALon HISTORY PHYSICAL HNO ID: [id number] Author: Niall Lou Service: ? Author Type: [...] and 2012 bowel surgery - ALONDRA 02/10/2019 [facility] by Jimi Yi MD - TOTAL [...] valve sparing root replacement. Niall Lou MD [facility] Vital Signs Date Time Vital Sign Value Performing Clinician Facility 02-16-2025 09:21-0400 Body height 170.18 cm Gavino Melendez MD Work Phone: [facility] 02-16-2025 09:21-0400 Body mass index (BMI) [Ratio] 31.3 kg/m2 Gavino Melendez MD Work Phone: [facility] 02-16-2025 09:21-0400 Body weight 90.71 kg Gavino Melendez MD Work Phone: [facility] 02-16-2025 09:21-0400 Respiratory rate 18 /min Gavino Melendez MD Work Phone: [facility] 09-04-2024 08:34-0500 Body height 170.18 cm Gavino Melendez MD Work Phone: [facility] 09-04-2024 08:34-0500 Body mass index (BMI) [Ratio] 31 kg/m2 Gavino Melendez MD Work Phone: [facility] 09-04-2024 08:34-0500 Body weight 89.81 kg Gavino Melendez MD Work Phone: [facility] 09-04-2024 08:34-0500 Respiratory rate 18 /min Gavino Melendez MD Work Phone: [facility] 08-16-2024 10:13-0500 Body temperature 97.3 [degF] Gavino Melendez MD Work Phone: [facility] 08-16-2024 10:13-0500 Diastolic blood pressure 61 mm[Hg] Gavino Melendez MD Work Phone: [facility] 08-16-2024 10:13-0500 Heart rate 70 /min Gavino Melendez MD Work Phone: 0(737)595-690481 [place] [address] 08-16-2024 10:13-0500 Respiratory rate 18 /min Gavino Melendez MD Work Phone: [facility] 08-16-2024 10:13-0500 SaO2% (BldA) [Mass fraction] 67 % Gavino Melendez MD Work Phone: 6(540)455-383481 [place] [address] 08-16-2024 10:13-0500 Systolic blood pressure 127 mm[Hg] Gavino Melendez MD Work Phone: 4(100)995-530160 [address] 08-14-2024 19:30-0500 Inhaled oxygen flow rate 2 L/min Gavino Melendez MD Work Phone: [facility] 08-14-2024 13:48-0500 Body weight 88.5 kg Gavino Melendez MD Work Phone: 3(344)926-350745 [place] [address] 08-14-2024 09:20-0500 Body mass index (BMI) [Ratio] 30.5 kg/m2 Gavino Melendez MD Work Phone: [facility] 06-22-2023 09:17-0500 Body temperature 98.9 [degF] Dr. Nito Villalobos Work Phone: [facility] 06-22-2023 09:17-0500 Diastolic blood pressure 86 mm[Hg] Dr. Nito Villalobos Work Phone: [facility] 06-22-2023 09:17-0500 Heart rate 80 /min Dr. Nito Villalobos Work Phone: [facility] 06-22-2023 09:17-0500 Respiratory rate 16 /min Dr. Nito Villalobos Work Phone: [facility] 06-22-2023 09:17-0500 SaO2% (BldA) [Mass fraction] 97 % Dr. Nito Villalobos Work Phone: [facility] 06-22-2023 09:17-0500 Systolic blood pressure 169 mm[Hg] Dr. Nito Villalobos Work Phone: [facility] 06-22-2023 05:39-0500 Body mass index (BMI) [Ratio] 31.8 kg/m2 Dr. Nito Villalobos Work Phone: [facility] 06-22-2023 05:39-0500 Body weight 92.[address] Nito Villalobos Work Phone: 8(784)268-555960 [address] 06-21-2023 10:58-0500 Body height 170.[address] Nito Villalobos Work Phone: 4(294)[phone] [place] [address] 06-21-2023 01:36-0500 Body temperature 97.9 [degF] Dr. Nito Villalobos Work Phone: 0(278)416-558881 [place] [address] 06-21-2023 01:36-0500 Diastolic blood pressure 66 mm[Hg] Dr. Nito Villalobos Work Phone: 0(843)[phone] [place] [address] 06-21-2023 01:36-0500 Heart rate 73 /min Dr. Nito Villalobos Work Phone: 3(357)[phone] [address] 06-21-2023 01:36-0500 Respiratory rate 18 /min Dr. Nito Villalobos Work Phone: [facility] 06-21-2023 01:36-0500 SaO2% (BldA) [Mass fraction] 98 % Dr. iNto Villalobos Work Phone: [facility] 06-21-2023 01:36-0500 Systolic blood pressure 127 mm[Hg] Dr. Nito Villalobos Work Phone: [facility] 06-20-2023 19:37-0500 Body height 170.[address] Nito Villalobos Work Phone: [facility] 06-20-2023 19:37-0500 Body mass index (BMI) [Ratio] 32.1 kg/m2 Dr. Nito Villalobos Work Phone: [facility] 06-20-2023 19:37-0500 Body weight 92.[address] Nito Villalobos Work Phone: [facility] 06-02-2023 08:10-0400 Body temperature 99.19 [degF] Juan Athy PA-C Work Phone: [facility] 06-02-2023 08:10-0400 Body weight 91.17 kg Juan Athy PA-C Work Phone: [facility] 06-02-2023 08:10-0400 Diastolic blood pressure 80 mm[Hg] Juan Athy PA-C Work Phone: [facility] 06-02-2023 08:10-0400 Heart rate 82 /min Juan Athy PA-C Work Phone: [facility] 06-02-2023 08:10-0400 Respiratory rate 16 /min Juan Athy PA-C Work Phone: [facility] 06-02-2023 08:10-0400 SaO2% (BldA) [Mass fraction] 97 % Juan Athy PA-C Work Phone: [facility] 06-02-2023 08:10-0400 Systolic blood pressure 122 mm[Hg] Juan Athy PA-C Work Phone: [facility] 05-07-2023 13:46-0400 Diastolic blood pressure 79 mm[Hg] Dr. Nito Villalobos Work Phone: [facility] 05-07-2023 13:46-0400 Systolic blood pressure 144 mm[Hg] Dr. Nito Villalobos Work Phone: [facility] 02-22-2023 15:41-0400 Body height 170.[address] Nito Villalobos Work Phone: [facility] 02-22-2023 15:41-0400 Body mass index (BMI) [Ratio] 30.4 kg/m2 Dr. Nito Villalobos Work Phone: [facility] 02-22-2023 15:41-0400 Body weight 87.[address] Nito Villalobos Work Phone: [facility] 02-22-2023 15:41-0400 Diastolic blood pressure 91 mm[Hg] Dr. Nito Villalobos Work Phone: [facility] 02-22-2023 15:41-0400 Heart rate 70 /min Dr. Nito Villalobos Work Phone: 4(513)[phone] [place] [address] 02-22-2023 15:41-0400 Respiratory rate 18 /min Dr. Nito Villalobos Work Phone: 3(091)132-114860 [address] 02-22-2023 15:41-0400 SaO2% (BldA) [Mass fraction] 97 % Dr. Nito Villalobos Work Phone: [facility] 02-22-2023 15:41-0400 Systolic blood pressure 153 mm[Hg] Dr. Nito Villalobos Work Phone: [facility] 02-02-2023 11:51-0400 Body temperature 96.9 [degF] Dr. Nito Villalobos Work Phone: 7(132)881-877160 [address] 02-02-2023 11:51-0400 Diastolic blood pressure 71 mm[Hg] Dr. Nito Villalobos Work Phone: 9(284)[phone] [place] [address] 02-02-2023 11:51-0400 Heart rate 72 /min Dr. Nito Villalobos Work Phone: [facility] 02-02-2023 11:51-0400 Respiratory rate 16 /min Dr. Nito Villalobos Work Phone: [facility] 02-02-2023 11:51-0400 SaO2% (BldA) [Mass fraction] 97 % Dr. Nito Villalobos Work Phone: [facility] 02-02-2023 11:51-0400 Systolic blood pressure 113 mm[Hg] Dr. Nito Villalobos Work Phone: [facility] 02-02-2023 09:55-0400 Body height 170.[address] Nito Villalobos Work Phone: [facility] 02-02-2023 09:55-0400 Body mass index (BMI) [Ratio] 29.5 kg/m2 Dr. Nito Villalobos Work Phone: [facility] 02-02-2023 09:55-0400 Body weight 85.[address] Nito Villalobos Work Phone: [facility] 12-28-2022 14:06-0400 Body mass index (BMI) [Ratio] 30.5 kg/m2 Dr. Nito Villalobos Work Phone: [facility] 12-28-2022 14:06-0400 Body temperature 97.5 [degF] Dr. Nito Villalobos Work Phone: 2(619)[phone] [place] [address] 12-28-2022 14:06-0400 Body weight 88.[address] Nito Villalobos Work Phone: [facility] 12-28-2022 14:06-0400 Diastolic blood pressure 95 mm[Hg] Dr. Nito Villalobos Work Phone: [facility] 12-28-2022 14:06-0400 Heart rate 71 /min Dr. Nito Villalobos Work Phone: [facility] 12-28-2022 14:06-0400 Respiratory rate 17 /min Dr. Nito Villalobos Work Phone: [facility] 12-28-2022 14:06-0400 SaO2% (BldA) [Mass fraction] 98 % Dr. Nito Villalobos Work Phone: [facility] 12-28-2022 14:06-0400 Systolic blood pressure 159 mm[Hg] Dr. Nito Villalobos Work Phone: [facility] 11-25-2022 08:10-0400 Body temperature 98.7 [degF] Dr. Nito Villalobos Work Phone: [facility] 11-25-2022 08:10-0400 Diastolic blood pressure 86 mm[Hg] Dr. Nito Villalobos Work Phone: [facility] 11-25-2022 08:10-0400 Heart rate 70 /min Dr. Nito Villalobos Work Phone: [facility] 11-25-2022 08:10-0400 Respiratory rate 18 /min Dr. Nito Villalobos Work Phone: [facility] 11-25-2022 08:10-0400 SaO2% (BldA) [Mass fraction] 94 % Dr. Nito Villalobos Work Phone: [facility] 11-25-2022 08:10-0400 Systolic blood pressure 145 mm[Hg] Dr. Nito Villalobos Work Phone: [facility] 11-24-2022 12:15-0400 Body height 170.[address] Nito Villalobos Work Phone: [facility] 11-24-2022 12:15-0400 Body weight 85.[address] Nito Villalobos Work Phone: [facility] 11-23-2022 17:06-0400 Body mass index (BMI) [Ratio] 29.5 kg/m2 Dr. Nito Villalobos Work Phone: [facility] 11-23-2022 16:25-0400 Body temperature 98.5 [degF] [facility] 11-23-2022 16:25-0400 Diastolic blood pressure 78 mm[Hg] [facility] 11-23-2022 16:25-0400 Heart rate 78 /min [facility] 11-23-2022 16:25-0400 Respiratory rate 16 /min [facility] 11-23-2022 16:25-0400 SaO2% (BldA) [Mass fraction] 94 % [facility] 11-23-2022 16:25-0400 Systolic blood pressure 127 mm[Hg] [facility] 11-23-2022 12:50-0400 Body height 170.18 cm [facility] 11-23-2022 12:50-0400 Body mass index (BMI) [Ratio] 29.1 kg/m2 [facility] 11-23-2022 12:50-0400 Body weight 84.36 kg [facility] 11-21-2022 14:45-0400 Diastolic blood pressure 82 mm[Hg] [facility] 11-21-2022 14:45-0400 Heart rate 66 /min [facility] 11-21-2022 14:45-0400 Respiratory rate 16 /min [facility] 11-21-2022 14:45-0400 SaO2% (BldA) [Mass fraction] 98 % [facility] 11-21-2022 14:45-0400 Systolic blood pressure 136 mm[Hg] [facility] 11-21-2022 12:25-0400 Body height 170.18 cm [facility] 11-21-2022 12:25-0400 Body mass index (BMI) [Ratio] 29.9 kg/m2 [facility] 11-21-2022 12:25-0400 Body temperature 96 [degF] [facility] 11-21-2022 12:25-0400 Body weight 86.63 kg [facility] 08-21-2022 13:37-0500 Body temperature 98.2 [degF] [facility] FIELD APPRAISER.[employer] PLATER Work Phone: [facility] 08-21-2022 13:37-0500 Body weight 84.91 kg Jeovanny Almanza FIELD APPRAISER.[employer]ATER Work Phone: [facility] 08-21-2022 13:37-0500 Diastolic blood pressure 82 mm[Hg] Jeovanny Almanza FIELD APPRAISER.[employer]ATER Work Phone: [facility] 08-21-2022 13:37-0500 Heart rate 87 /min Jeovanny Almanza FIELD APPRAISER.[employer]ATER Work Phone: [facility] 08-21-2022 13:37-0500 Respiratory rate 20 /min Jeovanny Almanza FIELD APPRAISER.[employer] PLATER Work Phone: [facility] 08-21-2022 13:37-0500 SaO2% (BldA) [Mass fraction] 98 % Jeovanny Almanza FIELD APPRAISER.LOCK PLATER Work Phone: [facility] 08-21-2022 13:37-0500 Systolic blood pressure 148 mm[Hg] Jeovanny Vargaslisa FIELD APPRAISER.LOCK PLATER Work Phone: [facility] 04-27-2022 08:02-0400 Body height 170.[address] Nito Villalobos Work Phone: [facility] Work Phone: 04-27-2022 08:02-0400 Body mass index (BMI) [Ratio] 32.3 kg/m2 Dr. Nito Villalobos Work Phone: [facility] Work Phone: 04-27-2022 08:02-0400 Body weight 93.[address] Nito Villalobos Work Phone: [facility] Work Phone: 04-27-2022 08:02-0400 Diastolic blood pressure 91 mm[Hg] Dr. Nito Villalobos Work Phone: [facility] Work Phone: 04-27-2022 08:02-0400 Systolic blood pressure 171 mm[Hg] Dr. Nito Villalobos Work Phone: [facility] Work Phone: 12-21-2021 16:15-0400 Body height 170.[address] Nito Villalobos Work Phone: [facility] Work Phone: 12-21-2021 16:15-0400 Body mass index (BMI) [Ratio] 31.6 kg/m2 Dr. Nito Villalobos Work Phone: [facility] Work Phone: 12-21-2021 16:15-0400 Body weight 91.[address] Nito Villalobos Work Phone: [facility] Work Phone: 12-21-2021 16:15-0400 Diastolic blood pressure 80 mm[Hg] Dr. Nito Villalobos Work Phone: [facility] Work Phone: 12-21-2021 16:15-0400 Heart rate 70 /min Dr. Nito Villalobos Work Phone: [facility] Work Phone: 12-21-2021 16:15-0400 Respiratory rate 16 /min Dr. Nito Villalobos Work Phone: [facility] Work Phone: 12-21-2021 16:15-0400 Systolic blood pressure 137 mm[Hg] Dr. Nito Villalobos Work Phone: [facility] Work Phone: Encounters Encounter Date Encounter Type Care Provider Facility Start: 03-10-2025 ambulatory [facility] Facility:[facility] Start: 02-16-2025 End: 02-16-2025 Patient encounter procedure William SNOW -[facility] Work Phone: Start: 02-16-2025 End: 02-16-2025 ambulatory Gavino Melendez MD Work Phone: -[facility] Start: 12-15-2024 Encounter for genera l adult medical examination without abnormal findings [facility] Start: 12-09-2024 End: 12-09-[address] Gavino Melendez MD -Outpatient Bone Densitometry Work Phone: Start: 12-09-2024 End: 12-09-2024 ambulatory [facility] Facility:[facility] Start: 11-21-2024 End: 11-21-2024 ambulatory Gavino Melendez MD Work Phone: [facility] Work Phone: Start: 11-21-2024 End: 11-21-[address] Gavino Melendez MD -Laboratory, [facility] Work Phone: Start: 11-21-2024 End: 11-21-2024 ambulatory [facility] Facility:[facility] Start: 10-01-2024 End: 10-01-[address] Gavino Melendez MD -Ultrasound, [facility] Work Phone: Start: 10-01-2024 End: 10-01-2024 ambulatory Chalon Al Facility:[facility] Start: 09-19-2024 End: 09-19-[address] Gavino Melendez MD -Laboratory, [facility] Start: 09-19-2024 End: 09-19-2024 ambulatory [facility] Facility:[facility] Start: 09-10-2024 End: 09-10-[address] Carlyn Pickard MD -Laboratory Work Phone: Start: 09-10-2024 End: 09-10-2024 ambulatory [facility] Facility:[facility] Start: 09-04-2024 End: 09-04-[address] Carlyn Pickard MD -[facility] Work Phone: Start: 09-04-2024 End: 09-04-2024 ambulatory [facility] [place] Start: 08-16-2024 Non-patient / Non-visit Dr. Caorlann Gregory MD -[facility] Work Phone: Start: 08-15-2024 Non-patient / Non-visit Dr. Carolann Gregory MD -[facility] Work Phone: Start: 08-14-2024 Non-patient / Non-visit Dr. Carolann Gregory MD -[facility] Work Phone: Start: 08-14-2024 ambulatory Clifton Gregory Fac ility:[facility] Start: 08-14-2024 End: 08-16-2024 Evaluation and management of inpatient Dr. Clifton Gregory MD -[facility] 3 Work Phone: Start: 07-23-2024 End: 07-23-2024 ambulatory Chalon Al Facility:[facility] Start: 06-25-2024 End: 06-25-2024 ambulatory Chalon Al Facility:[facility] Start: 06-24-2024 End: 06-24-2024 Emergency department patient visit Johann Noble Facility:[facility] Start: 06-03-2024 End: 06-03-2024 ambulatory Chalon Al Facility:[facility] Start: 05-09-2024 Encounter for gynecological examination (general) (routine) without abnormal findings Krista Nielsen [facility] Start: 05-09-2024 End: 05-09-2024 ambulatory Krista Nielsen Facility:[facility] Start: 05-08-2024 End: 05-08-2024 ambulatory Chalon Al Facility:[facility] Start: 04-29-2024 ambulatory [facility] Start: 04-21-2024 ambulatory [facility] Start: 04-21-2024 End: 04-21-2024 ambulatory Chalon Al Facility:[facility] Start: 03-24-2024 End: 03-24-2024 ambulatory Chalon Al Facility:[facility] Start: 11-23-2023 End: 11-23-2023 ambulatory [facility] Work Phone: Start: 11-23-2023 End: 11-23-2023 Patient encounter procedure [facility] Work Phone: Start: 09-04-2023 End: 09-04-[address] Nito Villalobos Work Phone: [facility] Work Phone: Start: 09-04-2023 End: 09-04-[address] Nito Villalobos Work Phone: [facility] Work Phone: Start: 08-14-2023 End: 08-14-[address] Nito Villalobos Work Phone: [facility] Work Phone: Start: 08-14-2023 End: 08-14-[address] Nito Villalobos Work Phone: [facility] Start: 06-22-2023 Non-patient / Non-visit Dr. Gareth Villalobos Work Phone: [facility] Work Phone: Start: 06-22-2023 Non-patient / Non-visit Dr. Gareth Villalobos Work Phone: [facility] Start: 06-21-2023 Non-patient / Non-visit Dr. Gareth Villalobos Work Phone: [facility] Start: 06-21-2023 End: 06-22-2023 Evaluation and management of inpatient Dr. Nito Villalobos Work Phone: [facility]Pro[facility] Unit Work Phone: Start: 06-02-2023 End: 06-02-2023 ambulatory NITO VILLALOBOS Facility:[facility] Start: 06-02-2023 End: 06-02-2023 Patient encounter procedure Juan Harris PA-C Work Phone: [facility] Comment on above: Viral URI (Primary D x) Start: 06-02-2023 End: 06-02-[address] Nito Villalobos [facility] Work Phone: Start: 05-18-2023 End: 05-18-[address] Nito Villalobos Work Phone: [facility] Work Phone: Start: 05-07-2023 End: 05-07-[address] Nito Villalobos Work Phone: [facility] Work Phone: Start: 03-08-2023 Non-patient / Non-visit Dr. Gareth Villalobos Work Phone: [facility] Work Phone: Start: 03-01-2023 Non-patient / Non-visit Dr. Gareth Villalobos Work Phone: [facility] Start: 03-01-2023 End: 03-01-[address] Nito Villalobos Work Phone: [facility] Work Phone: Start: 03-01-2023 End: 03-01-[address] Nito Villalobos Work Phone: [facility]-Pulmonary Services/Neurology Work Phone: Start: 02-22-2023 End: 02-22-[address] Nito Villalobos Work Phone: [facility] Work Phone: Start: 02-02-2023 Non-patient / Non-visit Dr. Gareth Villalobos Work Phone: [facility] Start: 02-02-2023 End: 02-02-2023 Admission to same day surgery center Dr. Nito Villalobos Work Phone: [facility]-Endoscopy Start: 02-02-2023 End: 02-02-[address] Nito Villalobos Work Phone: [facility] Work Phone: Start: 12-28-2022 End: 12-28-[address] Nito Villalobos Work Phone: [facility]-Laboratory Start: 12-28-2022 End: 12-28-[address] Nito Villalobos Work Phone: [facility] Start: 11-25-2022 Non-patient / Non-visit Dr. Gareth Villalobos Work Phone: [facility] Start: 11-24-2022 Non-patient / Non-visit Dr. Gareth Villalobos Work Phone: [facility] Start: 11-23-2022 Non-patient / Non-visit Dr. Gareth Villalobos Work Phone: [facility] Start: 11-23-2022 End: 11-25-2022 Evaluation and management of inpatient Dr. Nito Villalobos Work Phone: [facility]-Medical Surgical 3 Start: 11-23-2022 [facility] Start: 11-21-2022 End: 11-21-2022 Emergency department patient visit [facility]Emergency Department Start: 08-23-2022 End: 08-23-2022 ambulatory [facility] Work Phone: Start: 08-23-2022 End: 08-23-2022 Patient encounter procedure [facility]-Laboratory, Specimen Start: 08-22-2022 Telephone encounter Cherie SNOW Work Phone: [facility] Comment on above: Results Start: 08-21-2022 End: 08-21-2022 ambulatory NITO VILLALOBOS Facility:[facility] Start: 08-21-2022 End: 08-21-2022 Office outpatient visit 25 minutes Jeovanny Almanza APRN.CNP Work Phone: [facility] Comment on above: Pharyngitis, unspeci fied etiology (Primary Dx); Viral illness Start: 05-24-2022 End: 05-24-[address] Nito Villalobos Work Phone: [facility] Work Phone: Start: 05-24-2022 End: 05-24-[address] Nito Villalobos Work Phone: [facility], [facility] Start: 04-27-2022 End: 04-27-[address] Nito Villalobos Work Phone: [facility] Work Phone: Start: 04-27-2022 End: 04-27-[address] Nito Villalobos Work Phone: [facility] Start: 03-23-2022 End: 03-23-[address] Nito Villalobos Work Phone: [facility] Start: 02-20-2022 End: 02-20-[address] Nito Villalobos Work Phone: [facility] Start: 12-21-2021 End: 12-21-[address] Nito Villalobos Work Phone: [facility] Start: 11-08-2017 End: 11-08-2017 Ambulatory [facility] Facility:[facility] Start: 06-19-2017 End: 06-19-2017 Ambulatory [facility] Facility:[facility] Start: 06-18-2017 End: 06-19-2017 Ambulatory [facility] Facility:[facility] Procedures Date Procedure Procedure Detail Performing Clinician Start: 12-09-2024 Dual energy X-ray absorptiometry Gavino Melendez MD Work Phone: Start: 10-01-2024 US scan of thyroid Molly Melendez MD Work Phone: Start: 08-14-2024 Computed tomography of abdomen and pelvis with intravenous contrast Gavino Melendez MD Work Phone: Start: 11-23-2023 Plain x-ray of wrist Start: 06-21-[address] Nito Villalobos Work Phone: Start: 06-21-2023 Plain X-ray abdomen Dr. Nito Villalobos Work Phone: Start: 06-21-2023 Plain X-ray abdomen Dr. Nito Villalobos Work Phone: Start: 06-20-2023 Computed tomography of abdomen and pelvis with contrast Dr. Nito Villalobos Work Phone: Start: 06-02-2023 STREP A MOLECULAR (POC) Juan SNOW-Tuan Work Phone: Start: 06-02-2023 MRI of joint of lowe r extremity Dr. Nito Villalobos Work Phone: Start: 05-18-2023 Radiologic examinati on of knee Dr. Nito Villalobos Work Phone: Start: 05-07-2023 Screening mammography Norris Villalobos Work Phone: Start: 02-02-[address] Nito villasenor Work Phone: Start: 11-23-2022 Computed tomography of abdomen and pelvis with intravenous contrast Start: 11-21-2022 Computed tomography of abdomen and pelvis with intravenous contrast Start: 11-21-2022 US scan of gallbladder Start: 08-21-2022 STREP A MOLECULAR (POC) Jeovanny Almanza FIELD APPRAISER[employer]ATER Work Phone: Start: 05-24-[address] Nito Villalobos Work Phone: Start: 04-27-2022 Screening mammography Norris Villalobos Work Phone: Start: 02-20-2022 Diagnostic radiograp hy of abdomen, decubitus and erect Dr. Nito Villalobos Work Phone: Start: 01-16-2018 Lipid 1996 panel - S carlos or Plasma Juan Harris PA-C Work Phone: Start: 10-06-2016 Mammography Jeovanny manzano FIELD AP[employer]ER[employer] Work Phone: Start: 10-11-2012 Colonoscopy Jeovanny manzano FIELD APPRAISER.[employer]ATER Work Phone: Bacteria identificat ion test Throat culture Plan of Treatment Date Care Activity Detail Author Start: 05-01-2025 Urine microalbumin profile DTa P,Tdap,Td Vaccine (5 - Td or Tdap) [facility] Start: 08-16-2024 Patient discharge [facility] Start: 08-15-2024 [facility] Start: 08-14-2024 Following clinical p athway protocol [facility] Start: 08-14-2024 Ambulation without limitation [facility] Start: 08-14-2024 Assessment of risk o f venous thromboembolism [facility] Start: 08-14-2024 Insertion of cathete r into peripheral vein [facility] Start: 08-14-2024 Providing care accor ding to standard [facility] Start: 08-14-2024 [facility] Start: 08-14-2024 Admission procedure [facility] Start: 08-14-2023 Procedure [facility] Start: 06-22-2023 Patient discharge [facility] Start: 06-22-2023 Blood chemistry [facility] Start: 06-21-2023 Assessment of risk o f venous thromboembolism [facility] Start: 06-21-2023 Insertion of cathete r into peripheral vein [facility] Start: 06-21-2023 Measuring intake and output [facility] Start: 06-21-2023 Providing care accor ding to [facility] Start: 06-21-2023 Provision of activit y privileges [facility] Start: 06-21-2023 [facility] Start: 06-21-2023 Referral to general surgeon [facility] Start: 06-21-2023 Verification routine [facility] Start: 06-21-2023 End: 06-21-2023 Admission procedure [facility] Start: 06-21-2023 Hospital admission, emergency, from emergency room, medical nature [facility] Start: 06-21-2023 Nil by mouth [facility] Start: 02-02-2023 Colonoscopy flx dx w /collj spec when pfrmd DIAGNOSTIC COLONOSCOPY [facility] Start: 02-02-2023 Patient discharge [facility] Start: 01-16-2023 Lipid 1996 panel - S carlos or Plasma Lipid Screening [facility] Start: 01-16-2023 LIPID SCREEN LIPID SCREEN [facility] Start: 11-25-2022 Patient discharge [facility] Start: 11-24-2022 End: 11-25-2022 [facility] Start: 11-23-2022 Following clinical p athway protocol [facility] Start: 11-23-2022 Admission procedure [facility] Start: 11-23-2022 Assessment of risk o f venous thromboembolism [facility] Start: 11-23-2022 Insertion of cathete r into peripheral vein [facility] Start: 11-23-2022 Providing care accor ding to standard [facility] Start: 11-23-2022 [facility] Start: 11-23-2022 Ambulation without limitation [facility] Start: 11-23-2022 Verification routine [facility] Start: 11-23-2022 End: 11-24-2022 [facility] Start: 11-23-2022 Patient referral to dietitian [facility] Start: 10-11-2022 Colonoscopy COLONOSCOPY [facility] Start: 10-11-2022 COLORECTAL CANCER SCREENING COLORECTAL CANCER SCREENING [facility] Start: 08-21-2022 End: 09-04-2022 Influenza virus A and B RNA and SARS-CoV-2 (COVID-19) N gene panel - Respiratory specimen by HOMAR with probe detection [facility] Work Phone: Comment on above: Expected: 08/21/2022 , Expires: 09/04/2022 Start: 08-13-2022 DEPRESSION ASSESSMENT DEPRESSION ASS ESSMENT [facility] Start: 04-27-2022 Liquid based cervica l cytology screening [facility] Work Phone: Start: 04-13-2022 Influenza vaccination INFLUENZA (#1) [facility] Start: 02-28-2022 COVID-19 VACCINE (4 - Booster for Pao series) COVID-19 VACCINE (4 - Booster for Pao series) [facility] Start: 02-13-2022 Urine microalbumin profile DTA P,TDAP,TD (2 - Td or Tdap) [facility] Start: 2018 RSV Vaccine (1 - 1-d ose 60+ series) RSV Vaccine (1 - 1-dose 60+ series) [facility] Start: 07-23-2018 DIABETES SCREEN DIABETES SCREEN [facility] Start: 07-23-2018 Diabetes Screening Diabetes Screenin g [facility] Start: 10-06-2017 Mammography [facility] Start: 09-25-2017 HPV TESTING HPV TESTING [facility] Start: 09-25-2017 PAP TESTING PAP TESTING [facility] Start: 2008 SHINGRIX VACCINE (1 of 2) RANDOLPH GRIX VACCINE (1 of 2) [facility] Start: 2003 COLOGUARD (FIT-DNA) COLOGUARD (FIT-D NA) [facility] Start: [address] COLONOGRAPHY [facility] Start: 2003 FECAL OCCULT BLOOD FECAL OCCULT BLOO D [facility] Start: 2003 SIGMOIDOSCOPY SIGMOIDOSCOPY [facility] Start: 1976 ANNUAL PCP TEAM ATMOSPHERIC TECHNICIAN VICKI DISEASE VISIT ANNUAL PCP TEAM CHRONIC DISEASE VISIT [facility] Start: 1976 BP CONTROLLED (<130/80) BP CONTROLLE D (<130/80) [facility] Start: 1976 HIV SCREENING HIV SCREENING [facility] Alanine aminotransfe rase [Enzymatic activity/volume] in Serum or Plasma [facility] Albumin [Mass/volume ] in Serum or Plasma [facility] Alkaline phosphatase [Enzymatic activity/volume] in Serum or Plasma [facility] Anion gap measurement [facility] Anion gap measurement [facility] Aspartate aminotrans ferase [Enzymatic activity/volume] in Serum or Plasma [facility] Bilirubin, total measurement [facility] BUN/Creatinine ratio [facility] BUN/Creatinine ratio [facility] Calcium [Mass/volume ] in Serum or Plasma [facility] Calcium [Mass/volume ] in Serum or Plasma [facility] Carbon dioxide, tota l [Moles/volume] in Serum or Plasma [facility] Carbon dioxide, tota l [Moles/volume] in Serum or Plasma [facility] Chloride [Moles/volu me] in Serum or Plasma [facility] Chloride [Moles/volu me] in Serum or Plasma [facility] Colonoscopy [facility] COVID & INFLUENZA A/ B & RSV NAAT, ROUTINE COVID & INFLUENZA A/B & RSV NAAT, ROUTINE Microbiology Routine Viral URI Ordered: 06/02/2023 [facility] Work Phone: Comment on above: Ordered: 06/02/2023 Creatinine [Moles/vo lume] in Serum or Plasma [facility] Creatinine [Moles/vo lume] in Serum or Plasma [facility] CTA Chest vessels WO and W contrast IV [facility] Glucose [Mass/volume ] in Serum or Plasma [facility] Glucose [Mass/volume ] in Serum or Plasma [facility] Hematocrit [Volume Fraction] of Blood [facility] Hematocrit [Volume Fraction] of Blood [facility] Hemoglobin [Mass/vol ume] in Blood [facility] Hemoglobin [Mass/vol ume] in Blood [facility] Leukocytes [#/volume ] in Blood [facility] Leukocytes [#/volume ] in Blood [facility] Magnesium [Mass/volu me] in Serum or Plasma [facility] Mean corpuscular hemoglobin concentration determination [facility] Mean corpuscular hemoglobin concentration determination [facility] Mean corpuscular hemoglobin determination [facility] Mean corpuscular hemoglobin determination [facility] Measurement of renal function [facility] Measurement of renal function [facility] Neutrophil count [facility] Neutrophil count [facility] Neutrophil percent differential count [facility] Neutrophil percent differential count [facility] Path report.final Dx Spec [facility] Work Phone: Patient Education [facility] Work Phone: Patient referral [facility] Work Phone: Platelets [#/volume] in Blood [facility] Platelets [#/volume] in Blood [facility] Potassium [Moles/vol ume] in Serum or Plasma [facility] Potassium [Moles/vol ume] in Serum or Plasma [facility] Red blood cell count [facility] Red blood cell count [facility] Red cell distributio n width determination [facility] Red cell distributio n width determination [facility] ROUTINE FLU A/B + RSV ROUTINE FL U A/B + RSV Lab Routine Viral URI Ordered: 06/02/2023 [facility] Work Phone: Comment on above: Ordered: 06/02/2023 SARS-CoV-2 (COVID-19 ) RNA [Presence] in Respiratory specimen by HOMAR with probe detection COVID NAAT, UPPER RESPIRATORY, ROUTINE Microbiology Routine Viral URI Ordered: 06/02/2023 [facility] Work Phone: Comment on above: Ordered: 06/02/2023 Sodium [Moles/volume ] in Serum or Plasma [facility] Sodium [Moles/volume ] in Serum or Plasma [facility] Total protein measurement [facility] Urea nitrogen [Mass/volume] in Serum or Plasma [facility] Urea nitrogen [Mass/volume] in Serum or Plasma [facility] Immunizations Immunization Date Immunization Notes Care Provider [facility] 05-24-2023 influenza, injectabl e, quadrivalent, preservative free Dr. Nito Villalobos Work Phone: [facility] 05-24-2023 Pfizer Covid-19 (Comirnaty) Dr. Nito Villalobos Work Phone: [facility] 01-03-2022 Covid (Moderna) Dr. Nito Chan Work Phone: [facility] 06-11-2021 Covid (Moderna) Dr. Nito Chan Work Phone: [facility] 05-22-[address] Nito Villalobos Work Phone: [facility] 11-06-[address] Nito Villalobos Work Phone: [facility] 10-21-2020 Covid (Yonas & Yonas) Dr. Nito Villalobos Work Phone: [facility] 06-16-2019 influenza, injectabl e, quadrivalent, contains preservative Jeovanny Almanza APRN.CNP Work Phone: [facility] 06-13-2019 influenza, injectabl e, quadrivalent, preservative free Dr. Nito Villalobos Work Phone: [facility] 06-13-2019 influenza, seasonal, injectable Dr. Nito Villalobos Work Phone: [facility] 05-01-2015 TD(adult) unspecifie d formulation Dr. Nito Villalobos Work Phone: [facility] 05-01-2015 tetanus and diphther ia toxoids, adsorbed, preservative free, for adult use (2 Lf of tetanus toxoid and 2 Lf of diphtheria toxoid) Dr. Nito Villalobos Work Phone: [facility] 02-14-2012 tetanus toxoid, reduced diphtheria toxoid, and acellular pertussis vaccine, adsorbed Jeovanny Pendlebury FIELD APPRAISER.[employer]ATER Work Phone: [facility] 05-16-2007 hepatitis B vaccine, adult dosage Dr. Nito Villalobos Work Phone: [facility] 04-16-2007 hepatitis B vaccine, adult dosage Dr. Nito Villalobos Work Phone: [facility] 04-16-2007 tetanus toxoid, reduced diphtheria toxoid, and acellular pertussis vaccine, adsorbed Dr. Nito Villalobos Work Phone: [facility] Payers Date Payer Category Payer Self-pay [id number] 2024 Unknown [id number] 2023 Medicare [id number] 2017 Private Health Insurance 2012 Private Health Insurance [id number] Private Health Insurance [employer] [id number] Unknown [id number] 2.16.8 [id number] Unknown [id number] 2.16.8 [id number] Unknown [id number] 2.16.8 [id number] Unknown [id number] 2.16.8 [id number] Unknown [id number] 2.16.8 [id number] Unknown [id number] 2.16.8 [id number] Unknown [id number] 2.16.8 [id number] Unknown [id number] 2.16.8 [id number] Unknown [id number] 2.16.8 [id number] Unknown [id number] 2.16.8 [id number] Unknown [id number] 2.16.8 [id number] Unknown [id number] 2.16.8 [id number] Unknown [id number] 2.16.8 [id number] Unknown [id number] 2.16.8 [id number] Unknown [id number] 2.16.8 [id number] Unknown [id number] 2.16.8 [id number] Unknown [id number] 2.16.8 [id number] Unknown [id number] 2.16.8 [id number] Unknown [id number] 2.16.8 [id number] Unknown [id number] 2.16.8 [id number] Unknown [id number] 2.16.8 [id number] Unknown [id number] 2.16.8 [id number] Social History Date Type Detail Facility Start: 12-21-2021 End: 06-21-2023 Tobacco smoking status NDIS Unknown if ever smoked [facility] Start: 07-30-2019 Spouse/ Signif icant Other [facility] Start: 1960 Sex Assigned At Female [facility] Start: 08-21-2022 End: 08-14-2024 Tobacco smoking status NHIS Ex-smoker [facility] End: 08-13-2011 History of tobacco use Current smoker [facility] End: 08-13-2011 History of tobacco use Cigarette Smoker [facility] Start: 07-18-2020 End: 08-21-2022 Cigarettes smoked current (pack per day) - Reported 0.5 [facility] Start: 08-21-2022 Tobacco use and exposure Smokeless tobacco non-user [facility] Start: 08-21-2022 End: 06-02-2023 Alcohol intake Ex-drinker (finding) [facility] Start: 1960 Sex Assigned At Not on file C [facility] Start: 04-05-2015 None [facility] Start: 04-05-2015 Non-smoker [facility] Start: 07-18-2020 End: 06-02-2023 Tobacco use panel [facility] National Score (1-100), lower number is lower risk Not on file [facility] Start: 07-31-2019 Gender identity Identifies as female gender (finding) [facility] Start: 07-31-2019 Sexual orientation Heterosexual (fin ding) [facility] Start: 11-24-2024 Sex Female (finding) [facility] NEGATED: Highlighted row [facility] Goals Date Patient Goal Desired Activity /State Functional Status Date Assessment Result Facility 08-16-2024 Functional status Ambulates [facility] Work Phone: 06-22-2023 Functional status Chair [facility] Work Phone: 11-25-2022 Functional status Ambulates [facility] Work Phone: Mental Status Date Assessment Result Facility 08-15-2024 Cognitive function Voice/Name [facility] Work Phone: 06-22-2023 Cognitive function Voice/Name [facility] Work Phone: 02-02-2023 Cognitive function Level Of Cons ciousness Appropriate;Drowsy [facility] Work Phone: 11-25-2022 Cognitive function Voice/Name [facility] Work Phone: Clinical Notes 04-27-2022 to 08-16-2024 Note Date & Type Note Facility 08-16-2024 Note [facility] Medical Records Department [address] [place] [address] Discharge Summary 08/16/24 1532 MR#: [id number] Acct: [id number] Name: IVORY IYER Rep #: [id number] : 1960 63 From: Clifton Gregory MD PCP: Dr. Gavino Melendez MD Status:DIS IN Location: [facility] [place], [place] IU293-8 Providers Date of Admission: 08/14/24 Primary Care Physician: Gavino Melendez MD Reason For Visit: SBO Diagnosis Discharge Diagnosis (1) Small bowel obstruction: Status: Acute Code(s): K56.609 - Unspecified intestinal obstruction, unspecified as to partial versus complete obstruction Medications at Discharge Home Medications olmesartan 40 mg tablet 20 mg PO QHS bp 08/30/21 potassium chloride 20 mEq tablet,extended release(part/cryst) (Klor-Con M) 20 meq PO DAILY potassium supplement 11/23/22 iodine 150 mcg tablet 150 mcg PO DAILY supplement 06/20/23 multivitamin (Daily Multi-Vitamin tablet) 1 tab PO DAILY vitamin 06/20/23 cholecalciferol (vitamin D3) 1 tab PO DAILY vitamin 06/21/23 vitamin B complex 1 tab PO DAILY vitamin 06/21/23 clobetasol 0.05 % topical ointment 1 applic topical [facility] #30 grams 01/09/24 omega 5-dck-mky-fish oil 300 mg-1,000 mg capsule (Fish Oil) 1 cap PO DAILY 02/25/24 Hospital Course Operations None Procedures None Summary of Care Provided Minutes Spent on Discharge: 40 Hospital Course: Per HPI: IVORY IYER, is a 63 F who presents to the hospital with abdominal pain and nausea that started last night around 8 PM. She has a history of small bowel obstructions given her previous abdominal surgery history, she had a volvulus as a child that had surgical repair and that she has had a hysterectomy. CT of the abdomen pelvis shows a transition point in the right lower quadrant in the distal ileum. She is not having any emesis and her stomach does not appear overly enlarged on the CT scan so no NG tube was placed in the ER. Hospital Course: 1. Small bowel obstruction???63-year-old female with extensive past surgical history presented to the hospital with signs and symptoms consistent with small bowel obstruction. This is the first episode of small bowel obstruction. She did not have any significant nausea or vomiting on the day of admission so an NG tube was not placed. She had resolution of her symptoms during her hospitalization, she was started on a clear liquid diet and advance to full liquid diet yesterday and today she tolerated a regular diet for breakfast. She had return of bowel function so I discussed with her the possibility of discharge today, she expressed understanding of the risk benefits going home and would like to go home today. Physical Exam Narrative General: Alert, Oriented x3, Cooperative, No apparent distress HEENT: Atraumatic, PERRLA, EOMI, Normocephalic Oral: Moist Mucosa Neck: Supple, No JVD Lungs: Clear to auscultation, Normal air movement, No rhonchi, No wheeze, No rales Cardiovascular: Regular rate, Regular Rhythm, Normal S1, Normal S2, murmur Abdomen: Soft, nontender, Non-Distended, No Hepato-splenomegaly Extremities: No edema, Capillary Refill Less than 3 Seconds Skin: No rashes, No breakdown Musculoskeletal: No Tenderness to Palpation of Joints or Extremities Neurological: No focal neurological deficits, Motor Exam 5/5 strength throughout, Sensory exam intact to light touch and pain Psych/Mental Status: Normal Affect, Appropriate Weight / BMI Weight Weight: 195 lb 1.745 oz Body Mass Index (BMI) 30.5 ABG / Lab / Microbiology Data 08/15/24 05:43 08/15/24 05:43 D/C Instructions Discharge Diet: Low fat / Low cholesterol Call your doctor if you observe: Fever of 101 or Higher, Shortness of breath, Dizziness, Fainting spells, Swelling in the ankles, Chest pain and Increased palpitations (irregular heartbeat) DC O2, CPAP, BIPAP Needs Home O2 Discharge instructions: No Meaningful Use Info Meaningful Use Meaningful Use Diagnoses (Choose all that apply): None applicable Ischemic Stroke Statin Dosing Therapy Reference: STATIN DOSE THERAPY REFERENCE: * Patients > 75 years receive moderate or high dose statin therapy. * Patients 75 years or YOUNGER should receive HIGH intensity statin dose unless contraindicated. You will be required to document reason for non-treatment if statin daily dose does not meet guidelines. HIGH DOSE STATIN THERAPY DAILY Atorvastatin > than or = to 40 mg Rosuvastatin > than or = to 20 mg Amlodipine + Atorvastatin > than or = to 2.5/40 mg Ezetimibe + Simvastatin 10/80 mg Simvastatin 80mg Discharge Plan Admission Admit Date/Time: 08/14/24 07:33 Attending Provider: Clifton Gregory Primary Care Provider: Gavino Melendez Discharge Orders/Prescriptions Prescriptions: Continued omega 0-fzk-dzs-fish oil [Fish Oil] 300-1,000 mg caps (more content not included)... [facility] 08-14-2024 Evaluation note Diagnosis Onset Date Resolution Small bowel obstruction resolved J anuary 2024 7:33am Aortic valve regurgitation chronic September 04 9:46am Hypertension chronic August 9:46am Thoracic aortic aneurysm chronic September 04, 2024 9:46am [facility] Work Phone: 1([phone]) 419-366611-10-2023 Progress note Author Kristin Caldwell [facility] June 22, 2023 8:58am Note Date/Time June 22, 2023 8:15am [facility] Medical Records Department [address] [place] [address] Progress Note - Surgery 06/22/23814 MR#: [id number] Acct: [id number] Name: IVORY IYER Rep #:[id number] : 1960 62 From: Kristin Caldwell MD PCP: Dr. Nito Villalobos MD Status:ADM IN Location: [place] [address] Subjective Subjective Patient had multiple bowel movements overnight. Tolerated clear liquids, ready go home Objective Data Objective Data Vital Signs: Vital Signs Temp Pulse Resp BP Pulse Ox O2 Del Method 98.3 F 70 16 159/72 H 96 Room Air 06/22/23 03:38 06/22/23 03:38 06/22/23 03:38 06/22/23 03:38 06/22/23 03:38 06/22/23 03:40 Oxygen Delivery Method Room Air Weight: 203 lb 4.259 oz Body Mass Index (BMI) 31.8 Intake & Output: Intake and Output for Last 24 Hours 11/04/0406/21/23 06/22/23 23:59 23:59 23:59 Intake Total 2703.34 / 2703.34 925 / 925 Output Total 800 / 800 Balance 1903.34 / 1903.34 925 / 925 Lab / Micro Data 06/21/23 03:58 06/21/23 03:58 Radiography Diagnostic Testing: Radiology Impression KUB X-Ray 06/21/23 02:35 IMPRESSION: Retained stool throughout the colon No demonstrated ileus or obstruction, no demonstrated free air Stable appearance of a NG tube Electronically Signed: Alexsander Clarke MD at 10:11 EST , Small Bowel X-Ray 06/21/23 08:00 IMPRESSION: On the 6 hour image, there is opacification of the entire bowel. Electronically Signed: Duy Coppola MD at 8:13 EST , Physical Exam Const oriented x3 Resp normal respiratory effort Cardio regular rate GI soft to palpation and non-tender Inspection: Negative for abdominal distention Assessment & Plan Assessment/Plan (1) Partial small bowel obstruction: PLAN: Plan Patient small bowel follow-through did make it to the colon and patient on multiple bowel movements overnight. Tolerating clears. Will advance to fulls. If patient tolerates will DC home. Patient is agreeable plan. Kristin Caldwell M.D. Pager: [phone] [facility] [address] [place] [address], Out[facility] [place], [address] [place] [address] Office: [phone] Charges/Coding Visit Charges Inpatient E&M: 44027 Subs Hosp L2 06/22/23 0858 <Electronically signed by Kristin Caldwell MD> Cosigner Signature (if applicable): CC: ~ Signed [facility] Work Phone: 1(669) 979-499611-09-2023 Progress note Author Carly Lorenz [facility] June 21, 2023 11:51am Note Date/Time June 21, 2023 1 1:51am [facility] Medical Records Department [address] [place] [address] Progress Note - Hospitalist 06/21/23 1151 MR#: [id number] Acct: [id number] Name: IVORY IYER Rep #:[id number] : 1960 62 From: Carly Lorenz MD PCP: Dr. Nito Villalobos MD Status:ADM IN Location: [place] [address] Hospitalist Note Patient reports feeling better than yesterday but still not passing flatus or having bowel movements. Surgery following, maintain n.p.o., NG tube clamped andpatient undergoing small bowel follow-through. We will continue present management 06/21/23 115 <Electronically signed by Carly Lorenz MD> Cosigner Signature (if applicable): CC: ~ Signed [facility] Work Phone: 1(570) 733-399011-09-2023 Consult note Author Ben Villafuerte [facility] June 21, 2023 10:42am Note Date/Time June 21, 2023 1 0:36am [facility] Medical Records Department [address] [place] [address] Consultation - Surgical 06/21/23 1029 MR#: [id number] Acct: [id number] Name: IVORY IYER Rep #:[id number] : 1960 62 From: Ben Pisano PCP: Dr. Nito Villalobos MD Status:ADM IN Location: [place] [address] Assessment & Plan Assessment/Plan (1) Partial small bowel obstruction: PLAN: This is a 62-year-old female who presents with signs and symptoms of a partial small bowel obstruction. She has a rather focally dilated loop of smallbowel in the left lower quadrant that appeared twisted on CT scan, however therewas not a clear transition point and patient's labs were all within normal limits. This morning her exam is relatively unremarkable. Based on the rather large diameter of this bowel in the absence of significant discomfort, I would question whether or not the patient has a bit of a chronic obstruction due to adhesions from her prior surgeries. With her normal labs and minimal tendernesson exam she has also minimal clear output from her nasogastric tube. Taking allof this together, I am hopeful this points to a high likelihood of success for aconservative approach to her small bowel obstruction. To this end I am recommending and initiating a small bowel follow-through via her nasogastric tube. I have shared with her, however, that if her clinical picture suggests that she would need an operation to resolve this issue, we would need further cardiac work-up and a transfer to a higher level of care for an operation?given her pre-existing aortic valvular insufficiency?may not be out of the question. She initially expresses resistance to this idea, but ultimately expresses understanding of her potentially heightened perioperative risk. ? Continue n.p.o. status ? Keep nasogastric tube clamped during small bowel follow-through unless patientexpresses severe nausea, then return to suction and notify surgery immediately ? Maintain patient in aspiration precautions during small bowel follow-through ? Surgery will continue to follow and trend patient's abdominal exams HPI Consult Data Date of Consult: 06/21/23 HPI Narrative Reason for Consultation: Small bowel obstruction HPI Narrative: IVORY IYER, is a 62 F who presented to [facility] ER yesterday after experiencing approximately 1 hour of right-sided abdominal pain and associated nausea. She confirms that she has experienced rather regular bowel function and this included a bowel movement yesterday afternoon that was relatively unremarkable. She does admit, however, that she has not passed regular flatus. Her ER work-up was notable for normal CBC and lactic acid. CT imaging of the abdomen pelvis seem to show a partial small bowel obstruction with a segment of small bowel in the left lower quadrant that measured up to 6 cm in diameter. Given that her laboratories were normal and her exam was not consistent with a surgical abdomen she was admitted to the hospitalist service after placement of a nasogastric tube. Patient has a history of prior small bowel obstructions. She confirms a historyof malrotation as an that required operative intervention and then 12 years ago she underwent a laparoscopic operation with Dr. Shrestha which required asmall bowel resection and anastomosis. More recently, however, in 2019 she was admitted for conservative management of a small bowel obstruction which was successful. This represents her latest obstructive episode from the past 24 hours. Beyond the above surgical history, patient has a history of transabdominal hysterectomy and then a appendectomy by Senior Karl. Patient's past medical history includes a diagnosis of aortic valvular insufficiency. She denies ever requiring any intervention for this diagnosis. She states that it has remained stable through all of her echocardiogram surveillance. She previously followed with Dr. Taylor, and generally followswith the heart group here in [place]. [facility] Medical History Abnormal EKG Acute diverticulitis Anxiety Cardiology follow-up encounter Dyspnea on exertion Essential hypertension Failure of outpatient treatment Fatigue First degree AV block Former smoker History of diverticulitis History of echocardiogram History of transesophageal echocardiography (ALONDRA) Hx of small bowel obstruction Nonrheumatic aortic valve insufficiency Obesity Post-menopausal Prolonged QT interval SBO (small bowel obstruction) Small bowel obstruction Wears glasses Home Medications olmesartan 40 mg tablet 20 mg PO QHS bp 08/30/21 [History Last Taken 11/22/22 21:00] potassium chloride 20 mEq tablet,extended release(part/cryst) (Klor-Con M) 20 meq PO DAILY potassium supplement 11/23/22 [History Last Taken 11/22/22 21:00] iodine 150 mcg tablet 150 mcg PO DAILY 06/20/23 [History Last Taken Unknown] multivitamin (Daily Multi-Vitamin tablet) 1 tab PO DAILY 06/20/23 [History Last Taken Unknown] vitamin B complex (B Complex-Vitamin B12 tablet) 1 tab PO DAILY 06/20/23 [History Last Taken Unknown] Allergy/AdvReac Type Severity Reaction Status Date / Time hydrochlorothiazide AdvReac Severe SEVERE Verified 06/20/23 19:40 HYPOKALEMIA, hospitalized for it bee venom protein (honey bee) AdvReac Swelling Verified 06/20/23 19:40 codeine AdvReac Other Verified 06/20/23 19:40 Family History Uncle Diabetes Aunt Diabetes Surgical History H/O total hysterectomy History of appendectomy History of bowel resection History of cardiac catheterization History of right and left heart catheterization (02/10/19) Social History Smoking Status: Former smoker quit date: 08/13/12 pack-years: 10 alcohol intake: current details: social substance use type: does not use caffeine: Yes what type of physical activity do you participate in: bicycling and yoga frequency: 5-6 times per week seatbelt use: always do you feel safe at home: Yes additional social history: Dante Physical Exam Const alert and oriented x3 Constitutional Narrative: Patient able to joke throughout her history taking Resp normal respiratory effort GI GI Narrative: Mildly distended, right paramedian scar well-healed. Lower midline laparotomy scar well-healed. Soft and minimal tenderness with palpation for all quadrants. Lab / Micro Data 06/21/23 03:58 06/21/23 03:58 Labs: Laboratory Results - last 24 hr 06/20/23 20:50: WBC 10.1, RBC 4.82, Hgb 14.0, Hct 44.4, MCV 92.1, MCH 29.0, MCHC31.5 L, RDW Std Deviation 44.4 H, RDW Coeff of Bhavya 13.2, Plt Count 416, MPV 9.8,Immature Gran % (Auto) 0.500, Neut % (Auto) 56.8, Lymph % (Auto) 32.4, Lipscomb % (Auto) 7.5, Eos % (Auto) 1.9, Baso % (Auto) 0.9, Absolute Neuts (auto) 5.7, Absolute Lymphs (auto) 3.28, Nucleated RBC % 0, Sodium 138, Potassium 3.5, Chloride 106, Carbon Dioxide 27.0, Anion Gap 5, BUN 15, Creatinine 1.07 H, EstimCreat Clear Calc 51.65, Est GFR (MDRD) Af Amer 66, Est GFR (MDRD) Non-Af 55 L, BUN/Creatinine Ratio 14.0, Glucose 118 H, Calcium 9.1, Total Bilirubin 0.30, AST27, ALT 50, Alkaline Phosphatase 94, Total Protein 7.7, Albumin 4.0, Globulin 3.7, Albumin/Globulin Ratio 1.1 06/20/23 21:10: Lactic Acid 1.2 06/20/23 23:02: Urine Color Cancelled, Urine Clarity Cancelled, Urine pH Cancelled, Ur Specific [place] Cancelled, U Specif Grav (Refrac) Cancelled, Urine Protein Cancelled, Urine Glucose (UA) Cancelled, Urine Ketones Cancelled, Urine Occult Blood Cancelled, Urine Nitrite Cancelled, Urine Bilirubin Cancelled, Urine Urobilinogen Cancelled, Ur Leukocyte Esterase Cancelled, Urine RBC Cancelled, Urine WBC Cancelled, Ur Squamous Epith Cells Cancelled, Ur Transition Epith Cell Cancelled, Ur Renal Epithelial Cell Cancelled, Calcium Oxalate Crystal Cancelled, Uric Acid Crystals Cancelled, Triple Phos Crystals Cancelled, Other Crystals Cancelled, Amorphous Sediment Cancelled, Urine Bacteria Cancelled, Hyaline Casts Cancelled, Fine Granular Casts Cancelled, Coarse Granular Casts Cancelled, Waxy Casts Cancelled, RBC Casts Cancelled, WBC Casts Cancelled, Urine Mucus Cancelled, Urine Trichomonas Cancelled, Urine Yeast Cancelled 06/21/23 03:58: WBC 9.2, RBC 4.41, Hgb 12.8, Hct 41.4, MCV 93.9, MCH 29.0, MCHC 30.9 L, RDW Std Deviation 45.9 H, RDW Coeff of Bhavya 13.3, Plt Count 376, MPV 9.8,Immature Gran % (Auto) 0.400, Neut % (Auto) 63.6, Lymph % (Auto) 25.7, Lipscomb % (Auto) 8.1, Eos % (Auto) 1.4, Baso % (Auto) 0.8, Absolute Neuts (auto) 5.9, Absolute Lymphs (auto) 2.37, Nucleated RBC % 0, Sodium 140, Potassium 4.1, Chloride 104, Carbon Dioxide 29.0, Anion Gap 7, BUN 14, Creatinine 0.90, Estim Creat Clear Calc 61.41, Est GFR (MDRD) Af Amer 81, Est GFR (MDRD) Non-Af 67, BUN/Creatinine Ratio 15.6, Glucose 107 H, Calcium 8.7, Phosphorus 4.5, Magnesium2.5, Total Bilirubin 0.50, AST 26, ALT 48, Alkaline Phosphatase 84, Total Protein 6.8, Albumin 3.6, Globulin 3.2, Albumin/Globulin Ratio 1.1 Radiology Impression Abdomen/Pelvis CT 06/20/23 21:22 IMPRESSION: 1. Partial small bowel obstruction in the lower left anterior pelvic cavity with short segment of small bowel measuring up to 6 cm in diameter 2. Descending and sigmoid colonic diverticulosis without evidence of acute articularis. 3. Mild fatty infiltration of the liver. Electronically Signed: Brett Morfin MD at 23:38 EST , KUB X-Ray 06/21/23 00:16 IMPRESSION: Nasogastric tube as described and in normal location. Electronically Signed: Rosanna Yarbrough MD at 1:22 EST , KUB X-Ray 06/21/23 02:35 IMPRESSION: Retained stool throughout the colon No demonstrated ileus or obstruction, no demonstrated free air Stable appearance of a NG tube Electronically Signed: Alexsander Clarke MD at 10:11 EST , Charges/Coding Visit Charges Inpatient E&M: 01228 Init Hosp L2 06/21/23 1042 <Electronically signed by Ben Villafuerte MD> Cosigner Signature (if applicable): CC: Dr. Sisi Vincent DO; Dr. Nito Villalobos MD; Dr. Ben Villafuerte MD~ Signed [facility] Work Phone: 1(158) [phone] History and physical note Author Sisi Teddy [facility] June 21, 2023 6:34am Note Date/Time June 21, 2023 1 2:25am [facility] Medical Records Department [address] [place] [address] H&P Exam - Hospitalist 06/21/23 0008 MR#: [id number] Acct: [id number] Name: IVORY IYER Rep #:[id number] : 1960 62 From: Sisi Foreman DO PCP: Dr. Nito Villalobos MD Status:ADM IN [facility] HPI - General General Date of Admission: 06/21/23 Date of Service: 06/21/23 Chief Complaint: Abdominal pain HPI Narrative IVOYR IYER, is a 62 F with a past medical history of essential hypertension, former history of tobacco abuse (quit 2012), history of nonrheumatic aortic valve insufficiency, obesity with BMI of 32.1 this admission, history of small bowel obstruction and history of diverticulitis with microperforation requiring surgery approximately 6 months ago who presents to [facility] ERcomplaining of abdominal pain. Ms. Iyer reports her symptoms began on the morning of 06/20/2023 with her abdominal pain being made worse after she spent anhour weeding and gardening. She admits to nausea but denies vomiting. She claims she is still having flatus and able to have bowel movements. She denies blood in her stools or black and tarry stools. She also denies fevers, chills or dysuria. In the ER her CT scan of the abdomen and pelvis was positive for evidence of a partial small bowel obstruction with associated clinical evidence of intractable abdominal pain and she was then admitted to the general medical floor for ongoing care for a stay that is expected to be greater than 48 hours. [facility] Medical History Abnormal EKG Acute diverticulitis Anxiety Cardiology follow-up encounter Dyspnea on exertion Essential hypertension Failure of outpatient treatment Fatigue First degree AV block Former smoker History of diverticulitis History of echocardiogram History of transesophageal echocardiography (ALONDRA) Hx of small bowel obstruction Nonrheumatic aortic valve insufficiency Obesity Post-menopausal Prolonged QT interval SBO (small bowel obstruction) Small bowel obstruction Wears glasses Home Medications olmesartan 40 mg tablet 20 mg PO QHS bp 08/30/21 [History Last Taken 11/22/22 21:00] potassium chloride 20 mEq tablet,extended release(part/cryst) (Klor-Con M) 20 meq PO DAILY potassium supplement 11/23/22 [History Last Taken 11/22/22 21:00] iodine 150 mcg tablet 150 mcg PO DAILY 06/20/23 [History Last Taken Unknown] multivitamin (Daily Multi-Vitamin tablet) 1 tab PO DAILY 06/20/23 [History Last Taken Unknown] vitamin B complex (B Complex-Vitamin B12 tablet) 1 tab PO DAILY 06/20/23 [History Last Taken Unknown] Allergy/AdvReac Type Severity Reaction Status Date / Time hydrochlorothiazide AdvReac Severe SEVERE Verified 06/20/23 19:40 HYPOKALEMIA, hospitalized for it bee venom protein (honey bee) AdvReac Swelling Verified 06/20/23 19:40 codeine AdvReac Other Verified 06/20/23 19:40 Family History Uncle Diabetes Aunt Diabetes Surgical History H/O total hysterectomy History of appendectomy History of bowel resection History of cardiac catheterization History of right and left heart catheterization (02/10/19) Social History Smoking Status: Former smoker quit date: 08/13/12 pack-years: 10 alcohol intake: current details: social substance use type: does not use caffeine: Yes what type of physical activity do you participate in: bicycling and yoga frequency: 5-6 times per week seatbelt use: always do you feel safe at home: Yes 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 Narrative Review of systems: Constitutional: She admits to lethargy but denies fevers, chills, sweats or weight loss Eyes: Patient denies blurry vision or changes in her vision ENT: Patient denies runny nose or sore throat Cardiovascular: Patient denies chest pain or palpitations Respiratory: Patient denies shortness of breath or cough Gastrointestinal: Patient reports abdominal pain and nausea but denies diarrhea or vomiting Genitourinary: Patient denies dysuria hematuria or urinary frequency Musculoskeletal: Patient denies back pain, neck pain, arthralgias and myalgias Integumentary: Patient denies abrasions abscess or rash Neurologic: Patient denies headache or focal neurologic deficits Psychiatric: Patient denies anxiety depression or suicidal thoughts Endocrine: Patient denies polydipsia polyphagia or polyuria Hematologic: She denies easy bleeding, easy bruising or lymphadenopathy Allergic: Denies mild swelling, tongue swelling or urticaria 14 point review of systems otherwise negative except for positives noted in HPI above. Vital Signs Vital Signs Vital Signs: 06/20/23 19:37 Temperature 97.9 F Temperature Source Temporal Pulse Rate 78 Respiratory Rate 18 Blood Pressure 194/86 H Blood Pressure Mean 122 Pulse Ox 98 Oxygen Delivery Method Room Air Weight Weight: 205 lb Body Mass Index (BMI) 32.1 Physical Exam Const alert, oriented x3 and no apparent distress General Appearance: cooperative HEENT normocephalic, head/scalp atraumatic, hearing grossly normal bilaterally and moist oral mucous membranes HEENT Narrative: Oropharynx dry. Eyes PERRL, EOMs intact bilaterally and conjunctivae normal Neck no lymphadenopathy, supple, no JVD and no carotid bruits Resp normal respiratory effort, no retractions, no use of accessory muscles and clearto auscultation bilaterally Cardio regular rate and regular rhythm GI GI Narrative: Patient's abdomen is distended but not tender. Has an NG tube placed to intermittent wall suction with approximately 100 cc of NG tube aspirate in Vacutainer. Auscultation: hypoactive bowel sounds Extremity normal to inspection, full ROM and no clubbing, cyanosis or edema Neuro oriented x3, CN's II-XII intact bilaterally and moves all extremities Sensorium / Orientation: awake, alert, oriented to person, oriented to place andoriented to time Speech: speech normal Motor Exam: strength 5/5 throughout Psych affect normal Results Medical Records Data Attestation: I reviewed the patient's medical records Lab / Micro Data Attestation: I reviewed the patient's lab results. 06/21/23 03:58 06/21/23 03:58 Labs: Laboratory Results - last 24 hr 06/20/23 20:50: WBC 10.1, RBC 4.82, Hgb 14.0, Hct 44.4, MCV 92.1, MCH 29.0, MCHC31.5 L, RDW Std Deviation 44.4 H, RDW Coeff of Bhavya 13.2, Plt Count 416, MPV 9.8,Immature Gran % (Auto) 0.500, Neut % (Auto) 56.8, Lymph % (Auto) 32.4, Lipscomb % (Auto) 7.5, Eos % (Auto) 1.9, Baso % (Auto) 0.9, Absolute Neuts (auto) 5.7, Absolute Lymphs (auto) 3.28, Nucleated RBC % 0, Sodium 138, Potassium 3.5, Chloride 106, Carbon Dioxide 27.0, Anion Gap 5, BUN 15, Creatinine 1.07 H, EstimCreat Clear Calc 51.65, Est GFR (MDRD) Af Amer 66, Est GFR (MDRD) Non-Af 55 L, BUN/Creatinine Ratio 14.0, Glucose 118 H, Calcium 9.1, Total Bilirubin 0.30, AST27, ALT 50, Alkaline Phosphatase 94, Total Protein 7.7, Albumin 4.0, Globulin 3.7, Albumin/Globulin Ratio 1.1 06/20/23 21:10: Lactic Acid 1.2 06/20/23 23:02: Urine Color Cancelled, Urine Clarity Cancelled, Urine pH Cancelled, Ur Specific [place] Cancelled, U Specif Grav (Refrac) Cancelled, Urine Protein Cancelled, Urine Glucose (UA) Cancelled, Urine Ketones Cancelled, Urine Occult Blood Cancelled, Urine Nitrite Cancelled, Urine Bilirubin Cancelled, Urine Urobilinogen Cancelled, Ur Leukocyte Esterase Cancelled, Urine RBC Cancelled, Urine WBC Cancelled, Ur Squamous Epith Cells Cancelled, Ur Transition Epith Cell Cancelled, Ur Renal Epithelial Cell Cancelled, Calcium Oxalate Crystal Cancelled, Uric Acid Crystals Cancelled, Triple Phos Crystals Cancelled, Other Crystals Cancelled, Amorphous Sediment Cancelled, Urine Bacteria Cancelled, Hyaline Casts Cancelled, Fine Granular Casts Cancelled, Coarse Granular Casts Cancelled, Waxy Casts Cancelled, RBC Casts Cancelled, WBC Casts Cancelled, Urine Mucus Cancelled, Urine Trichomonas Cancelled, Urine YeastCancelled Radiology Impression Abdomen/Pelvis CT 06/20/23 21:22 IMPRESSION: 1. Partial small bowel obstruction in the lower left anterior pelvic cavity with short segment of small bowel measuring up to 6 cm in diameter 2. Descending and sigmoid colonic diverticulosis without evidence of acute articularis. 3. Mild fatty infiltration of the liver. Electronically Signed: Brett Morfin MD at 23:38 EST , Assessment & Plan Assessment/Plan (1) Partial small bowel obstruction: PLAN: Plan 1. Partial small bowel obstruction with severe abdominal pain - Admit to general medical floor. Continue NG tube to intermittent wall suction. Volume resuscitate and give IV antiemetics and IV pain medications as needed. Finally,we will consult Dr. Villafuerte of general surgery to see this patient on rounds in the a.m. for further recommendations with help appreciated in advance. 2. Essential hypertension - Give IV hydralazine as needed for systolic blood pressure greater than 160 mmHg. 3. Obesity with BMI of 32.1 this admission - Weight loss will be recommended. 4. History of nonrheumatic aortic valve insufficiency - Stable. 5. DVT prophylaxis - Lovenox 40 mg subcu daily. Total time: Approximately 40 minutes. Charges/Coding Visit Charges Inpatient E&M: 61876 Init Hosp L1 06/21/23 0634 <Electronically signed by Sisi Vincent DO> Cosigner Signature (if applicable): CC: Dr. Sisi Vincent DO; Dr. Nito Villalobos MD~ Signed [facility] Work Phone: [phone]) 142-271411-09-2023 Discharge summary Author Johann Noble [facility] June 21, 2023 12:55am Note Date/Time June 20, 2023 9 :24pm [facility] Medical Records Department [address] [place] [id number] Emergency Department Summary 06/20/23 MR#: [id number] Acct: [id number] Name: IVORY IYER Rep #:[id number] : 1960 62 From: Patrice Schmidt DO PCP: Dr. Nito Villalobos MD Status:ADM IN Location: [place] [address] HPI HPI - GI History of Present Illness Chief Complaint: Abd Pain Detail of Chief Complaint: Abdominal pain Informant: patient Narrative Narrative: Patient presents to the emergency department complaint of abdominal pain that started this morning. Patient states that she was then weeding for about an hour and then started having more pain in her abdomen. She is concerned becauseabout 6 months ago she had diverticulitis with microperforation requiring surgery. She has had partial bowel resection. She has history of bowel obstruction. She has had prior hysterectomy and prior appendectomy. Patient describes nausea but no vomiting. She denies blood in her stool or black tarry stool. She denies fevers. She denies urinary symptoms. [facility] Medical History Abnormal EKG Acute diverticulitis Anxiety Cardiology follow-up encounter Dyspnea on exertion Essential hypertension Failure of outpatient treatment Fatigue First degree AV block Former smoker History of diverticulitis History of echocardiogram History of transesophageal echocardiography (ALONDRA) Hx of small bowel obstruction Nonrheumatic aortic valve insufficiency Obesity Post-menopausal Prolonged QT interval SBO (small bowel obstruction) Small bowel obstruction Wears glasses Home Medications olmesartan 40 mg tablet 20 mg PO QHS bp 08/30/21 [History Last Taken 11/22/22 21:00] potassium chloride 20 mEq tablet,extended release(part/cryst) (Klor-Con M) 20 meq PO DAILY potassium supplement 11/23/22 [History Last Taken 11/22/22 21:00] iodine 150 mcg tablet 150 mcg PO DAILY 06/20/23 [History Last Taken Unknown] multivitamin (Daily Multi-Vitamin tablet) 1 tab PO DAILY 06/20/23 [History Last Taken Unknown] vitamin B complex (B Complex-Vitamin B12 tablet) 1 tab PO DAILY 06/20/23 [History Last Taken Unknown] Allergy/AdvReac Type Severity Reaction Status Date / Time hydrochlorothiazide AdvReac Severe SEVERE Verified 06/20/23 19:40 HYPOKALEMIA, hospitalized for it bee venom protein (honey bee) AdvReac Swelling Verified 06/20/23 19:40 codeine AdvReac Other Verified 06/20/23 19:40 Family History Uncle Diabetes Aunt Diabetes Surgical History H/O total hysterectomy History of appendectomy History of bowel resection History of cardiac catheterization History of right and left heart catheterization (02/10/19) Social History Smoking Status: Former smoker quit date: 08/13/12 pack-years: 10 alcohol intake: current details: social substance use type: does not use caffeine: Yes what type of physical activity do you participate in: bicycling and yoga frequency: 5-6 times per week seatbelt use: always do you feel safe at home: Yes 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 ROS ED Review of Systems ROS Unobtainable: other Constitutional Constitutional ED: Reports lethargy; Denies chills, fever(s), sweats or weight loss Eyes Eyes: Denies blurry vision, change in vision or diplopia ENT ENT ED: Denies rhinorrhea or sore throat Cardiovascular Cardiovascular: Denies chest pain, orthopnea or racing heartbeat Respiratory/Chest Respiratory/Chest: Denies cough, dyspnea, dyspnea on exertion, orthopnea or sputum Gastrointestinal Gastrointestinal: Reports abdominal pain and nausea; Denies diarrhea or vomiting Genitourinary Genitourinary ED: Denies dysuria, hematuria or urinary frequency Musculoskeletal Musculoskeletal: Denies arthralgias, back pain, myalgias or neck pain Integumentary Denies abscess, Abrasions or rash Neurologic Neurologic: Denies headache(s) or weakness Psychiatric Psychiatric: Denies anxiety, depression or suicidal thoughts Endocrine Endocrinology: Denies polydipsia, polyphagia or polyuria Hematologic/Lymphatic Hematologic/Lymphatic: Denies easy bleeding, easy bruising or lymphadenopathy Allergic/Immunologic Allergic/Immunologic ED: Denies mouth swelling, tongue swelling or urticaria EXAM Physical Exam Const Vital Signs: 06/20/23 19:37 Temperature 97.9 F Temperature Source Temporal Pulse Rate 78 Respiratory Rate 18 Blood Pressure 194/86 H Blood Pressure Mean 122 Pulse Ox 98 Oxygen Delivery Method Room Air Positive well nourished and well developed General Appearance ED: well developed and NAD HEENT Reports TM's clear and moist mucous membranes normocephalic and atraumatic; Negative for trauma or tenderness Tympanic Membrane ED: Yes TM's clear Eyes PERRL and EOMs intact bilaterally General Eye ED: Negative for pale conjunctiva or scleral icterus Neck no lymphadenopathy, supple and no JVD General: Negative for tenderness Chest Wall inspection of chest normal and palpation of chest normal Chest: Negative for tenderness Resp normal respiratory effort and clear to auscultation bilaterally Effort and Inspection: Negative for respiratory distress or pain with movement Auscultation: Negative for rhonchi, wheezes or diminished lung sounds Cardio regular rate, regular rhythm, S1 normal heart sound, S2 normal heart sound and no murmurs Peripheral Pulses: pulses 2+ throughout GI soft to palpation, non-distended and no masses GI Narrative: Patient's abdomen with hyperactive bowel sounds and slightly distended. Diffusetenderness to palpation but especially to the right lower abdomen. There is guarding. There is no rebound, rigidity, or peritoneal signs Back/Spine no CVA tenderness and no thoracic nor lumbar tenderness Extremity normal to inspection General Extremety ED: Negative for edema General Extremity: Negative for edema Neuro oriented x3, CN's II-XII intact bilaterally, no sensory deficits noted and gait normal Sensorium / Orientation: awake, alert, oriented to person, oriented to place andoriented to time Motor Exam: strength 5/5 throughout and strength abnormal Psych mental status grossly normal Skin no rashes or lesions noted and no wounds MDM MDM MDM Narrative Medical decision making narrative: Presented with abdominal pain that started earlier this morning. Patient with history of prior bowel obstruction and bowel perforation that required partial colectomy. IV line established. CBC with differential white count of 10.1 withhemoglobin 14 and platelet count of 416. Chemistries unremarkable. BUN 15 and creatinine 1.07. Lactate was normal at 1.2. LFTs were normal. Urinalysis unremarkable. CT scan of the abdomen pelvis with IV and p.o. contrast showed partial small bowel obstruction. Case discussed with general surgeon on-call Dr. Villafuerte who recommended NG to low intermittent suction and she will likely require a small bowel follow-through tomorrow. We will discuss case with hospitalist to evaluate patient for admission. Patient initially medicated withmorphine and Zofran. She continued to complain of pain and will order a milligram of Dilaudid IV. Lab Data Labs: Laboratory Results - last 24 hr 06/20/23 06/20/23 06/20/23 20:50 21:10 23:02 WBC 10.1 RBC 4.82 Hgb 14.0 Hct 44.4 MCV 92.1 MCH 29.0 MCHC 31.5 L RDW Std Deviation 44.4 H RDW Coeff of Bhavya 13.2 Plt Count 416 MPV 9.8 Immature Gran % (Auto) 0.500 Neut % (Auto) 56.8 Lymph % (Auto) 32.4 Lipscomb % (Auto) 7.5 Eos % (Auto) 1.9 Baso % (Auto) 0.9 Absolute Neuts (auto) 5.7 Absolute Lymphs (auto) 3.28 Nucleated RBC % 0 Sodium 138 Potassium 3.5 Chloride 106 Carbon Dioxide 27.0 Anion Gap 5 BUN 15 Creatinine 1.07 H Estim Creat Clear Calc 51.65 Est GFR (MDRD) Af Amer 66 Est GFR (MDRD) Non-Af 55 L BUN/Creatinine Ratio 14.0 Glucose 118 H Lactic Acid 1.2 Calcium 9.1 Total Bilirubin 0.30 AST 27 ALT 50 Alkaline Phosphatase 94 Total Protein 7.7 Albumin 4.0 Globulin 3.7 Albumin/Globulin Ratio 1.1 Urine Color Cancelled Urine Clarity Cancelled Urine pH Cancelled Ur Specific [place] Cancelled U Specif Grav (Refrac) Cancelled Urine Protein Cancelled Urine Glucose (UA) Cancelled Urine Ketones Cancelled Urine Occult Blood Cancelled Urine Nitrite Cancelled Urine Bilirubin Cancelled Urine Urobilinogen Cancelled Ur Leukocyte Esterase Cancelled Urine RBC Cancelled Urine WBC Cancelled Ur Squamous Epith Cells Cancelled Ur Transition Epith Cell Cancelled Ur Renal Epithelial Cell Cancelled Calcium Oxalate Crystal Cancelled Uric Acid Crystals Cancelled Triple Phos Crystals Cancelled Other Crystals Cancelled Amorphous Sediment Cancelled Urine Bacteria Cancelled Hyaline Casts Cancelled Fine Granular Casts Cancelled Coarse Granular Casts Cancelled Waxy Casts Cancelled RBC Casts Cancelled WBC Casts Cancelled Urine Mucus Cancelled Urine Trichomonas Cancelled Urine Yeast Cancelled Radiography Diagnostic Testing: Clinical Impression(s) from Imaging Studies Abdomen/Pelvis CT 06/20/23 21:22 IMPRESSION: 1. Partial small bowel obstruction in the lower left anterior pelvic cavity with short segment of small bowel measuring up to 6 cm in diameter 2. Descending and sigmoid colonic diverticulosis without evidence of acute articularis. 3. Mild fatty infiltration of the liver. Electronically Signed: Brett Morfin MD at 23:38 EST Reading Location ID and State: [address] [place] [address] Tel , Service support , Discharge Plan Triage Chief Complaint: Abd Pain ED Provider: Patrice Schmidt Dx/Rx/DC Orders Clinical Impression: Small bowel obstruction, Abdominal pain, Hypertension Prescriptions: No Action potassium chloride [Klor-Con M20] 20 mEq tablet,ER particles/crystals 20 meq PO DAILY vitamin B complex [B Complex-Vitamin B12] Tablet 1 tab PO DAILY iodine 150 mcg tablet 150 mcg PO DAILY multivitamin [Daily Multi-Vitamin] Tablet 1 tab PO DAILY olmesartan 40 mg tablet 20 mg PO QHS Primary Care Provider: Nito Villalobos Referrals: Nito Villalobos MD [Primary Care Provider] - Disposition Disposition: Acute Care Hospital [facility] What to do if you have Problems For any increased pain, shortness of breath, bleeding, nausea or vomiting, chestpain, or any unexpected problems, contact your Primary Care Provider. Call [facility] ([phone]) or report to the closest Emergency Room. Call 911 if necessary. 06/21/23 0003 <Electronically signed by Patrice Schmidt DO> Cosigner Signature (if applicable): CC: Dr. Nito Villalobos MD ~ Signed ADDENDUM by Dr. Johann Noble MD on 06/21/23 at 0055 KUB 1 view on my interpretation shows good NG tube placement in the stomach. 06/21/23 0055<Electronically signed by Johann Noble MD> Cosigner Signature (if applicable): cc: Dr. Nito Villalobos MD ~* Signed [facility] Work Phone: [phone]) 408-671911-08-2023 Discharge summary Author Johann Noble [facility] June 21, 2023 12:55am Note Date/Time June 20, 2023 9 :24pm [facility] Medical Records Department [address] [place] [id number] Emergency Department Summary 06/20/23 MR#: [id number] Acct: [id number] Name: IVORY IYER Rep #:[id number] : 1960 62 From: Patrice Schmidt DO PCP: Dr. Nito Villalobos MD Status:ADM IN Location: [place] [address] HPI HPI - GI History of Present Illness Chief Complaint: Abd Pain Detail of Chief Complaint: Abdominal pain Informant: patient Narrative Narrative: Patient presents to the emergency department complaint of abdominal pain that started this morning. Patient states that she was then weeding for about an hour and then started having more pain in her abdomen. She is concerned becauseabout 6 months ago she had diverticulitis with microperforation requiring surgery. She has had partial bowel resection. She has history of bowel obstruction. She has had prior hysterectomy and prior appendectomy. Patient describes nausea but no vomiting. She denies blood in her stool or black tarry stool. She denies fevers. She denies urinary symptoms. [facility] Medical History Abnormal EKG Acute diverticulitis Anxiety Cardiology follow-up encounter Dyspnea on exertion Essential hypertension Failure of outpatient treatment Fatigue First degree AV block Former smoker History of diverticulitis History of echocardiogram History of transesophageal echocardiography (ALONDRA) Hx of small bowel obstruction Nonrheumatic aortic valve insufficiency Obesity Post-menopausal Prolonged QT interval SBO (small bowel obstruction) Small bowel obstruction Wears glasses Home Medications olmesartan 40 mg tablet 20 mg PO QHS bp 08/30/21 [History Last Taken 11/22/22 21:00] potassium chloride 20 mEq tablet,extended release(part/cryst) (Klor-Con M) 20 meq PO DAILY potassium supplement 11/23/22 [History Last Taken 11/22/22 21:00] iodine 150 mcg tablet 150 mcg PO DAILY 06/20/23 [History Last Taken Unknown] multivitamin (Daily Multi-Vitamin tablet) 1 tab PO DAILY 06/20/23 [History Last Taken Unknown] vitamin B complex (B Complex-Vitamin B12 tablet) 1 tab PO DAILY 06/20/23 [History Last Taken Unknown] Allergy/AdvReac Type Severity Reaction Status Date / Time hydrochlorothiazide AdvReac Severe SEVERE Verified 06/20/23 19:40 HYPOKALEMIA, hospitalized for it bee venom protein (honey bee) AdvReac Swelling Verified 06/20/23 19:40 codeine AdvReac Other Verified 06/20/23 19:40 Family History Uncle Diabetes Aunt Diabetes Surgical History H/O total hysterectomy History of appendectomy History of bowel resection History of cardiac catheterization History of right and left heart catheterization (02/10/19) Social History Smoking Status: Former smoker quit date: 08/13/12 pack-years: 10 alcohol intake: current details: social substance use type: does not use caffeine: Yes what type of physical activity do you participate in: bicycling and yoga frequency: 5-6 times per week seatbelt use: always do you feel safe at home: Yes 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 ROS ED Review of Systems ROS Unobtainable: other Constitutional Constitutional ED: Reports lethargy; Denies chills, fever(s), sweats or weight loss Eyes Eyes: Denies blurry vision, change in vision or diplopia ENT ENT ED: Denies rhinorrhea or sore throat Cardiovascular Cardiovascular: Denies chest pain, orthopnea or racing heartbeat Respiratory/Chest Respiratory/Chest: Denies cough, dyspnea, dyspnea on exertion, orthopnea or sputum Gastrointestinal Gastrointestinal: Reports abdominal pain and nausea; Denies diarrhea or vomiting Genitourinary Genitourinary ED: Denies dysuria, hematuria or urinary frequency Musculoskeletal Musculoskeletal: Denies arthralgias, back pain, myalgias or neck pain Integumentary Denies abscess, Abrasions or rash Neurologic Neurologic: Denies headache(s) or weakness Psychiatric Psychiatric: Denies anxiety, depression or suicidal thoughts Endocrine Endocrinology: Denies polydipsia, polyphagia or polyuria Hematologic/Lymphatic Hematologic/Lymphatic: Denies easy bleeding, easy bruising or lymphadenopathy Allergic/Immunologic Allergic/Immunologic ED: Denies mouth swelling, tongue swelling or urticaria EXAM Physical Exam Const Vital Signs: 06/20/23 19:37 Temperature 97.9 F Temperature Source Temporal Pulse Rate 78 Respiratory Rate 18 Blood Pressure 194/86 H Blood Pressure Mean 122 Pulse Ox 98 Oxygen Delivery Method Room Air Positive well nourished and well developed General Appearance ED: well developed and NAD HEENT Reports TM's clear and moist mucous membranes normocephalic and atraumatic; Negative for trauma or tenderness Tympanic Membrane ED: Yes TM's clear Eyes PERRL and EOMs intact bilaterally General Eye ED: Negative for pale conjunctiva or scleral icterus Neck no lymphadenopathy, supple and no JVD General: Negative for tenderness Chest Wall inspection of chest normal and palpation of chest normal Chest: Negative for tenderness Resp normal respiratory effort and clear to auscultation bilaterally Effort and Inspection: Negative for respiratory distress or pain with movement Auscultation: Negative for rhonchi, wheezes or diminished lung sounds Cardio regular rate, regular rhythm, S1 normal heart sound, S2 normal heart sound and no murmurs Peripheral Pulses: pulses 2+ throughout GI soft to palpation, non-distended and no masses GI Narrative: Patient's abdomen with hyperactive bowel sounds and slightly distended. Diffusetenderness to palpation but especially to the right lower abdomen. There is guarding. There is no rebound, rigidity, or peritoneal signs Back/Spine no CVA tenderness and no thoracic nor lumbar tenderness Extremity normal to inspection General Extremety ED: Negative for edema General Extremity: Negative for edema Neuro oriented x3, CN's II-XII intact bilaterally, no sensory deficits noted and gait normal Sensorium / Orientation: awake, alert, oriented to person, oriented to place andoriented to time Motor Exam: strength 5/5 throughout and strength abnormal Psych mental status grossly normal Skin no rashes or lesions noted and no wounds MDM MDM MDM Narrative Medical decision making narrative: Presented with abdominal pain that started earlier this morning. Patient with history of prior bowel obstruction and bowel perforation that required partial colectomy. IV line established. CBC with differential white count of 10.1 withhemoglobin 14 and platelet count of 416. Chemistries unremarkable. BUN 15 and creatinine 1.07. Lactate was normal at 1.2. LFTs were normal. Urinalysis unremarkable. CT scan of the abdomen pelvis with IV and p.o. contrast showed partial small bowel obstruction. Case discussed with general surgeon on-call Dr. Villafuerte who recommended NG to low intermittent suction and she will likely require a small bowel follow-through tomorrow. We will discuss case with hospitalist to evaluate patient for admission. Patient initially medicated withmorphine and Zofran. She continued to complain of pain and will order a milligram of Dilaudid IV. Lab Data Labs: Laboratory Results - last 24 hr 06/20/23 06/20/23 06/20/23 20:50 21:10 23:02 WBC 10.1 RBC 4.82 Hgb 14.0 Hct 44.4 MCV 92.1 MCH 29.0 MCHC 31.5 L RDW Std Deviation 44.4 H RDW Coeff of Bhavya 13.2 Plt Count 416 MPV 9.8 Immature Gran % (Auto) 0.500 Neut % (Auto) 56.8 Lymph % (Auto) 32.4 Lipscomb % (Auto) 7.5 Eos % (Auto) 1.9 Baso % (Auto) 0.9 Absolute Neuts (auto) 5.7 Absolute Lymphs (auto) 3.28 Nucleated RBC % 0 Sodium 138 Potassium 3.5 Chloride 106 Carbon Dioxide 27.0 Anion Gap 5 BUN 15 Creatinine 1.07 H Estim Creat Clear Calc 51.65 Est GFR (MDRD) Af Amer 66 Est GFR (MDRD) Non-Af 55 L BUN/Creatinine Ratio 14.0 Glucose 118 H Lactic Acid 1.2 Calcium 9.1 Total Bilirubin 0.30 AST 27 ALT 50 Alkaline Phosphatase 94 Total Protein 7.7 Albumin 4.0 Globulin 3.7 Albumin/Globulin Ratio 1.1 Urine Color Cancelled Urine Clarity Cancelled Urine pH Cancelled Ur Specific [place] Cancelled U Specif Grav (Refrac) Cancelled Urine Protein Cancelled Urine Glucose (UA) Cancelled Urine Ketones Cancelled Urine Occult Blood Cancelled Urine Nitrite Cancelled Urine Bilirubin Cancelled Urine Urobilinogen Cancelled Ur Leukocyte Esterase Cancelled Urine RBC Cancelled Urine WBC Cancelled Ur Squamous Epith Cells Cancelled Ur Transition Epith Cell Cancelled Ur Renal Epithelial Cell Cancelled Calcium Oxalate Crystal Cancelled Uric Acid Crystals Cancelled Triple Phos Crystals Cancelled Other Crystals Cancelled Amorphous Sediment Cancelled Urine Bacteria Cancelled Hyaline Casts Cancelled Fine Granular Casts Cancelled Coarse Granular Casts Cancelled Waxy Casts Cancelled RBC Casts Cancelled WBC Casts Cancelled Urine Mucus Cancelled Urine Trichomonas Cancelled Urine Yeast Cancelled Radiography Diagnostic Testing: Clinical Impression(s) from Imaging Studies Abdomen/Pelvis CT 06/20/23 21:22 IMPRESSION: 1. Partial small bowel obstruction in the lower left anterior pelvic cavity with short segment of small bowel measuring up to 6 cm in diameter 2. Descending and sigmoid colonic diverticulosis without evidence of acute articularis. 3. Mild fatty infiltration of the liver. Electronically Signed: Brett Morfin MD at 23:38 EST Reading Location ID and State: [address] [place] [address] Tel , Service support , Discharge Plan Triage Chief Complaint: Abd Pain ED Provider: Patrice Schmidt Dx/Rx/DC Orders Clinical Impression: Small bowel obstruction, Abdominal pain, Hypertension Prescriptions: No Action potassium chloride [Klor-Con M20] 20 mEq tablet,ER particles/crystals 20 meq PO DAILY vitamin B complex [B Complex-Vitamin B12] Tablet 1 tab PO DAILY iodine 150 mcg tablet 150 mcg PO DAILY multivitamin [Daily Multi-Vitamin] Tablet 1 tab PO DAILY olmesartan 40 mg tablet 20 mg PO QHS Primary Care Provider: Nito Villalobos Referrals: Nito Villalobos MD [Primary Care Provider] - Disposition Disposition: Acute Care Hospital [facility] What to do if you have Problems For any increased pain, shortness of breath, bleeding, nausea or vomiting, chestpain, or any unexpected problems, contact your Primary Care Provider. Call [facility] ([phone]) or report to the closest Emergency Room. Call 911 if necessary. 06/21/23 0003 <Electronically signed by Patrice Schmidt DO> Cosigner Signature (if applicable): CC: Dr. Nito Villalobos MD ~ Signed ADDENDUM by Dr. Johann Noble MD on 06/21/23 at 0055 KUB 1 view on my interpretation shows good NG tube placement in the stomach. 06/21/23 0055<Electronically signed by Johann Noble MD> Cosigner Signature (if applicable): cc: Dr. Nito Villalobos MD ~* Signed [facility] Work Phone: [phone] 752-683410-21-2023 NoteHNO ID: [id number] Author: Juan Harris PA-C Service: ? Author Type: Physician Almond Roaster Type: Progress Notes Filed: 06/02/2023 9:03 AM Note Text: This note was created using P21ter. Subjective Ivory Iyer is a 62 year [...] QT interval chronic SBO (small bowel obstruction) ([facility]) 02/10/2011 Current Outpatient Medications Medication Sig Dispense [...] hyperplasstic rectal polyp ECHO TRANSESOPHAG CONGEN PROBE [facility] IMGNG IANDR 02/10/2019 [facility] [...] ear normal. Nose: Congestion present. Mouth/Throat: Lips: [place]. Mouth: Mucous membranes are moist. Pharynx: Pharyngeal [...] ROUTINE - ROUTINE FLU A/B + RSV EDY [facility]10-21-2023 History of Present illness Narrative* Juan Harris PA-C - 06/02/2023 8:55 AM EDT This note was created using Ostarariter. Subjective Ivory Iyer is a 62 year old female. HPI Patient presents with a chief complaint of sore throat, cough, congestion over the past 2 days. Shedenies fever at home, temp here 99.2. She [...] QT interval chronic SBO (small bowel obstruction) ([facility]) 02/10/2011 Current Outpatient Medications Medication Sig Dispense Refill clobetasol (TEMOVATE) 0.05 % cream APPLY THIN LAYER TWICE A DAY X 2 WEEKS THEN DAILY X2 WEEKS APPLYTHIN LAYER MASSAGE IN TO COVER AREA olmesartan [...] hyperplasstic rectal polyp ECHO TRANSESOPHAG CONGEN PROBE [facility] IMGNG I&R 02/10/2019 [facility] [...] ear normal. Nose: Congestion present. Mouth/Throat: Lips: [place]. Mouth: Mucous membranes are moist. Pharynx: Pharyngeal [...] RSV Juan Harris PA-C [facility] History and physical note Author Dr. Shrestha [facility] February 02, 2023 9:48am Note Date/Time February 02, 2023 9:48 am [facility] Medical Records Department [address] [place] [id number] History & Physical Exam 02/02/23 0947 MR#: [id number] Acct: [id number] Name: IVORY IYER Rep #:[id number] : 1960 62 From: Lenny Shrestha MD PCP: Dr. Nito Villalobos MD Status:[facility] Location: [place] [address] Assessment & Plan Assessment/Plan (1) Acute diverticulitis: PLAN: Plan Visit Reasons:?DIVERTICULTIS COLONOSCOPY Chief Complaint: diverticulitis colonoscopy Is patient in pain?: No Allergies hydrochlorothiazide Adverse Reaction (Severe, Verified 12/28/22 14:07) SEVERE HYPOKALEMIA, hospitalized for itbee venom protein (honey bee) Adverse Reaction (Verified 12/28/22 14:07) Swelling PFSH Medical History? Abnormal EKG Dyspnea on exertion Essential hypertension Fatigue First degree AV block Nonrheumatic aortic valve insufficiency Obesity Prolonged QT interval SBO (small bowel obstruction) Small bowel obstruction Surgical History? H/O total hysterectomy History of appendectomy History of bowel resection History of right and left heart catheterization (02/10/19) Family History? Uncle DiabetesAunt Diabetes Social History? Smoking Status:? Former smoker quit date: 08/13/12 pack-years: 10 alcohol intake:? current details:? social substance use type:? does not use caffeine:? Yes what type of physical activity do you participate in:? bicycling and yoga frequency:? 5-6 times per week seatbelt use:? always do you feel safe at home:? Yes additional social history:? Dante HPI HPI HPI: 62-year-old female was referred by Dr. Nito Villalobos for surgical consultation regarding diverticulitis.? Written compromise surgical consult recommendations will return to him.? By report it appears the patient's most recent colonoscopy was per myself October 2012 with findings of hyperplastic rectal polyps. Patient was hospitalized July 2019 with a partial small bowel obstruction.? 4 years prior to that she had had a similar episode.? She has had several previous episodes as well.? Going back to 2010 she had a laparoscopy with conversion to open lysis of adhesions and release of small bowel obstruction.? 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 Apparently she had surgery as a some type of smallbowel resection due to malrotation.? She has also had a previous appendectomy and is previous hysterectomy. Her most recent hospitalization was November 23 through November 25, 2022 which what was felt to be the proximal transverse colon acute diverticulitis with pericolonic inflammation and stranding.? No abscess but felt to represent microperforation.? Fortunately she improved with conservative measures and did not require surgery.? Although diverticular disease is noted in the sigmoid colon there was no evidence of acute inflammation at that site.? I have personally reviewed these images.? There is significant inflammatory changes of the proximal transverse colon.? Somewhat remarkable that she resolved with conservative measures. The patient presents with her today.? She states that she still feels bloated.? No fever or chills.? No bright red blood per rectum or melena.? Previous colonoscopy now 10 years ago. It became apparent discussing things with the patient that she had instituted a rigorous exercise protocol in the gym that required 100 abdominal crunches.? wondered whether this could possibly have been contributory to the bout of acute diverticulitis in the proximal transverse colon which would otherwise be an unusual site.? I did concur that the potential for sudden Valsalva maneuvers could potentially have affected that bowel.? In addition as we continue to discuss possible aggravating factors it is apparent that the patientdoes enjoy eating nuts and does so frequently. ROS General General: Yes fatigue; No weight change, appetite, colon cancer, breast cancer or weakness HEENT HEENT: No difficulty swallowing, eye injury, eye surgery, swollen glands or hoarseness Endo Endocrine: No thyroid disease, diabetes mellitus, thyroid cancer, Hair loss, heat intolerance or cold intolerance Skin Skin: No rash or changing moles Musc Musculoskeletal: No back problems, arthritis, rheumatoid arthritis, gout or joint pain Cardio Cardiovascular: Yes murmur and high blood pressure; No pacemaker, heart disease, atrial fibrillation, heart attack, heart stent, palpitations, shortness of breat with exertion or chest pain Psych Psychiatric: No depression, anxiety or hearing voices Resp Respiratory: No shortness of breath, No sleep apnea, No cough, No COPD, No asthma, No emphysema and No wheezing Gastro Gastrointestinal: No abdominal pain, No nausea or vomiting, No diarrhea, No constipation, No blood in stool, No acid reflux, No hemorrhoids, No ulcers, No gallbladder problem and No black,tarry stools [place] Hematologic: No blood thinners, No blood disorders, No bleeding, No anemia and No blood clots Neuro Neurologic: No system reviewed and no additional complaints, except as documented, No as per HPI, No abnormal gait, No abnormal hearing, No abnormal movements, No abnormal speech, No behavioral changes, No burning sensations, No confusion, No convulsions, No disequilibrium, No dizziness, No localized weakness, No frequent falls, No headache(s), No lack of coordination, No loss ofvision, No memory loss, No numbness, No other visual disturbances, No radicular pain, No restless legs, No sensory deficit, No syncope, No tingling, No tremor(s), No weakness and No other Exam Const General: cooperative, healthy appearing, comfortable and no acute distress Nutritional Appearance: overweight HENMT Head: normal to inspection Eyes General: appearance normal, both eyes and all related structures Neck Neck: normal visual inspection Resp Effort & Inspection: normal respiratory effort Auscultation: clear to auscultation bilaterally Cardio Rate: regular rate Rhythm: regular rhythm GI Inspection: normal to inspection Other: Mild tenderness palpation right lower quadrant and right mid abdomen and right upper quadrant and mid epigastrium.? Some slight guarding in the mid epigastrium.? No distinct focal mass.? Bowel sounds present and unremarkable. Well-healed infraumbilical midline incision by patient report from my laparoscopy/exploratory laparotomy with lysis of adhesions for small bowel obstruction.? Long right pararectus incision from the costal margin all the way down to the right lower quadrant from [facility]c Cervical Spine: normal cervical lordosis Skin General: no rashes or lesions noted Neuro General: patient alert, patient awake and patient oriented x3 Extrem General: no calf tenderness Psych Appearance: grossly normal, well kempt and disheveled Assessment and Plan Assessment and Plan (1) History of diverticulitis of colon: ?Status:?Acute ?Plan: At this point does not completely clear to me that the patient has had of 100% resolution of her proximal transverse colon diverticulitis.? I would like to obtain a CMP and a CBC with differential and a ESR and a CRP today trying to help evaluate whether there is chronic smoldering residual inflammation.? She was somewhat tender to palpation throughout the right side of the abdomen in theepigastrium.? Based upon her CT images which I have reviewed there was a significant amount of stranding and inflammation around the proximal transverse colon and it is possible that she could have a contained smoldering process enveloped by pericolonic fatty structures.? If abnormal laboratory is detected then I will recommend a follow-up CT scan with at least oral contrast to better define that situation.? I have cautioned the patient however that this is a muchless common site for diverticular disease and if a colectomy in this area is required then I would not be able to assure her that she would not develop future recurrent diverticulitis and another segment of her bowel.? I am not recommending surgery for her at this time and hopefully we can continue to manage her conservatively. I do recommend to her a colonoscopy with possible biopsy or polypectomy as indicated.? She is aware that I will be out of town however it then became apparent that the patient herself has social issues with graduation and out-of-town vacation plans as well.? We will schedule her at her earliest convenience.? She is aware of the technique, benefit, risk, alternatives.? I anticipate performing this with monitored anesthesia care.? Likely will require an adult colonoscope as well. I appreciate the ongoing opportunity of assisting with her surgical care. Copy: Dr. Nito Shrestha M.D., F.A.C.S I have examined the patient and the H&P has been reviewed. There are no clinicalchanges since date of exam. Lenny Shrestha M.D., F.A.C.S. 02/02/23 0948 <Electronically signed by Lenny Shrestha MD> Cosigner Signature (if applicable): CC: Dr. Nito Villalobos MD; Dr. Lenny Shrestha MD~ Signed [facility] Work Phone: 1(854) 846-516106-23-2023 Procedure [facility] 02-02-2023 Procedure [facility]04-13-2023 History and physical note Author Dr. Elizalde [facility] November 23, 2022 5:41pm Note Date/Time November 23, 2022 5:4 1pm [facility] Medical Records Department [address] [place] [address] History & Physical Exam 11/23/22 1730 MR#: [id number] Acct: [id number] Name: IVORY IYER Rep #:[id number] : 1960 62 From: Stephanie Pisano PCP: Dr. Nito Villalobos MD Status:ADM IN Location: [facility]3 [id number] HPI - General General Date of Admission: 11/23/22 Date of Service: 11/23/22 Chief Complaint: Abdominal pain HPI Narrative IVORY IYER, is a very pleasant 62 F who presents to the emergency department with several days history of right upper quadrant pain. Spouse at the bedside who adds some to the history. Few days ago was diagnosed with acute diverticulitis involving the proximal transverse colon and was started on antibiotics as an outpatient. Compliant with oral antibiotics however symptoms continued to worsen and progress thus prompting her to present once again to theemergency department. CT scan done showing a progression of inflammatory changes and now microperforation. Images personally reviewed and I wonder if there may be a early development of phlegmon. Patient developed a fever today no chills. Appetite has been poor. Denies any nausea or vomiting. States urine is dark last bowel movement was about 2 days ago and was largely normal. [facility] Medical History Abnormal EKG Dyspnea on exertion Essential hypertension Fatigue First degree AV block Nonrheumatic aortic valve insufficiency Obesity Prolonged QT interval SBO (small bowel obstruction) Small bowel obstruction Home Medications olmesartan 40 mg tablet 20 mg PO QHS bp 08/30/21 [History Last Taken 11/22/22 21:00] ondansetron 4 mg disintegrating tablet 4 mg PO Q8H PRN PRN Nausea #10 tabs 11/21/22 [Rx Last Taken Unknown] ciprofloxacin HCl 500 mg tablet (Cipro) 500 mg PO BID infection 11/23/22 [History Last Taken 11/23/22 09:00] clobetasol 0.05 % topical ointment See Rx Instructions .Route .COMPLEX personal 11/23/22 [History Last Taken Unknown] metronidazole 500 mg tablet 500 mg PO TID infection 11/23/22 [History Last Taken 11/23/22 09:00] potassium chloride 20 mEq tablet,extended release(part/cryst) (Klor-Con M) 20 meq PO DAILY potassium supplement 11/23/22 [History Last Taken 11/22/22 21:00] Allergy/AdvReac Type Severity Reaction Status Date / Time hydrochlorothiazide AdvReac Severe SEVERE Verified 11/23/22 12:52 HYPOKALEMIA, hospitalized for it bee venom protein (honey bee) AdvReac Swelling Verified 11/23/22 12:52 Family History Uncle Diabetes Aunt Diabetes Surgical History H/O total hysterectomy History of appendectomy History of bowel resection History of right and left heart catheterization (02/10/19) Social History Smoking Status: Former smoker quit date: 08/13/12 pack-years: 10 alcohol intake: current details: social substance use type: does not use caffeine: Yes what type of physical activity do you participate in: bicycling and yoga frequency: 5-6 times per week seatbelt use: always do you feel safe at home: Yes 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 Narrative Patient denies any chest pain or shortness of breath. All other systems reviewed and essentially negative as above in the body of the history. Vital Signs Vital Signs Vital Signs: 11/23/22 12:50 11/23/22 13:11 11/23/22 14:52 Temperature 35.8 C L 35.8 C L 36.5 C L Temperature Source Temporal Temporal Oral Pulse Rate 101 H 101 H 84 Respiratory Rate 18 18 16 Blood Pressure 113/71 113/71 138/74 H Blood Pressure Mean 85 85 95 Pulse Ox 97 97 97 Oxygen Delivery Method Room Air Room Air Room Air 11/23/22 16:25 11/23/22 17:06 Temperature 36.9 C 37.4 C H Temperature Source Oral Oral Pulse Rate 78 74 Respiratory Rate 16 18 Blood Pressure 127/78 H 124/65 H Blood Pressure Mean 94 84 Pulse Ox 94 93 Oxygen Delivery Method Room Air Room Air Weight Weight: 85.411 kg Body Mass Index (BMI) 29.5 Physical Exam Narrative General exam. Middle-aged woman, acutely ill-appearing, anxious appearing in some painful distress. HEENT. Oral mucosa is dry no pallor or jaundice. Neck. Neck is supple Lungs. Nonlabored breathing, vesicular breath sounds and no adventitious breathsounds. Heart. First and second heart sounds heard, grade 3/6 to 4/6 ejection systolic murmur maximal over the right upper sternal border radiating to the neck. Abdomen. Exquisite tenderness in the right upper quadrants with associated guarding and rebound tenderness. Rovsing's sign positive. Bowel sounds normoactive. Extremities. No pedal edema. ADMISSION DISCHARGE RN. 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 Cranial 2-12 grossly intact. All other organ systems examined and essentially negative. Results Medical Records Data Attestation: I reviewed the patient's medical records Lab / Micro Data Attestation: I reviewed the patient's lab results. Result Diagrams: 11/23/22 13:25 11/23/22 13:25 Labs: Laboratory Results - last 24 hr 11/23/22 13:25: WBC 13.5 H, RBC 4.67, Hgb 13.9, Hct 42.1, MCV 90.1 D, MCH 29.8,MCHC 33.0 D, RDW Std Deviation 44.1 H, RDW Coeff of Bhavya 13.4, Plt Count 362, MPV 9.5, Immature Gran % (Auto) 0.400, Neut % (Auto) 76.2 H, Lymph % (Auto) 13.5L, Lipscomb % (Auto) 9.0, Eos % (Auto) 0.5, Baso % (Auto) 0.4, Absolute Neuts (auto)10.3 H, Absolute Lymphs (auto) 1.82, Nucleated RBC % 0 11/23/22 13:25: Sodium 136, Potassium 3.6, Chloride 104, Carbon Dioxide 24.0, Anion Gap 8, BUN 11, Creatinine 0.84, Estim Creat Clear Calc 65.80, Est GFR (MDRD) Af Amer 87, Est GFR (MDRD) Non-Af 72, BUN/Creatinine Ratio 13.0, Glucose 106, Calcium 9.4 Radiology Impression Abdomen/Pelvis CT 11/23/22 13:14 IMPRESSION: Interval worsening of previously noted acute diverticulitis involving the proximal transverse colon, the amount of colon involvement appears to have increased as has the amount of pericolonic inflammatory stranding and there is also now evidence to suspect microperforation although there is no organized abscess. Scattered colonic diverticulosis elsewhere particularly in the sigmoid colon without other evidence of acute diverticulitis. Small bowel ileus No suspicious solid organ abnormality Electronically Signed: Alexsander Clarke MD at 14:11 EDT , Assessment & Plan Assessment/Plan (1) Acute diverticulitis: PLAN: Plan Assessment and plan 1. Acute diverticulitis involving the proximal transverse colon with associatedmicroperforation. Failed outpatient treatment with oral antibiotics. Suspect possible early phlegmous changes. To place patient on clear liquids. IV antibiotics with Zosyn to cover for gram-negatives and anaerobes. Multimodal pain control. Maintain low threshold for surgical consultation. Serial abdominal exams. 2. History of aortic regurgitation. Serially being monitored by cardiology. No symptoms of cardiac decompensation at this time. 11/23/22 1741 <Electronically signed by Stephanie Elizalde MD> Cosigner Signature (if applicable): CC: Dr. Nito Villalobos MD; Dr. Stephanie Elizalde MD~ Signed [facility] Work Phone: [phone]) 774-389404-13-[address] Noble [facility] November 23, 2022 3:21pm Note Date/Time November 23, 2022 1:1 8pm [facility] Medical Records Department [address] [place] [address] Emergency Department Summary 11/23/22 MR#: [id number] Acct: [id number] Name: IVORY IYER Rep #:[id number] : 1960 62 From: Johann Noble MD PCP: Dr. Nito Villalobos MD Status:REG ER Location: ED HPI HPI - GI History of Present Illness Chief Complaint: Abd Pain Informant: patient Abdominal Pain/Flank Pain Onset: Days (3) Context: Sudden Onset Timing: Continuous Quality: Aching Location: RUQ Current Severity: Severe Maximum Severity: Severe Worsened by: Movement Relieved by: Nothing Nausea/Vomiting/Emesis GI Symptom: Positive for Nausea; Negative for Vomiting Diarrhea/Melena/Hematochezia GI Symptom: Negative for Melena or Hematochezia Narrative Narrative: 62-year-old female was seen here 2 days ago and diagnosed with transverse colon diverticulitis for which she was started on Cipro and Flagyl. She has been nauseated but keeping her medications down, but she has been in an increasing amount of pain, it has been severe. She now is developed fevers. [facility] Medical History Abnormal EKG Dyspnea on exertion Essential hypertension Fatigue First degree AV block Nonrheumatic aortic valve insufficiency Obesity Prolonged QT interval SBO (small bowel obstruction) Small bowel obstruction Home Medications potassium chloride 20 mEq tablet,extended release(part/cryst) (Klor-Con M) 20 meq PO DAILY #90 tabs 06/14/20 [Rx Last Taken Unknown] olmesartan 40 mg tablet 20 mg PO DAILY 08/30/21 [History Last Taken Unknown] clobetasol 0.05 % topical ointment See Rx Instructions .Route .COMPLEX #30 grams05/09/22 [Rx Last Taken Unknown] ciprofloxacin HCl 500 mg tablet (Cipro) 500 mg PO BID #20 tabs 11/21/22 [Rx Last Taken Unknown] metronidazole 500 mg tablet 500 mg PO TID 10 days #30 tabs 11/21/22 [Rx Last Taken Unknown] ondansetron 4 mg disintegrating tablet 4 mg PO Q8H PRN PRN Nausea #10 tabs 11/21/22 [Rx Last Taken Unknown] Allergy/AdvReac Type Severity Reaction Status Date / Time hydrochlorothiazide AdvReac Severe SEVERE Verified 11/23/22 12:52 HYPOKALEMIA, hospitalized for it bee venom protein (honey bee) AdvReac Swelling Verified 11/23/22 12:52 Family History Uncle Diabetes Aunt Diabetes Surgical History H/O total hysterectomy History of appendectomy History of bowel resection History of right and left heart catheterization (02/10/19) Social History Smoking Status: Former smoker quit date: 08/13/12 pack-years: 10 alcohol intake: current details: social substance use type: does not use caffeine: Yes what type of physical activity do you participate in: bicycling and yoga frequency: 5-6 times per week seatbelt use: always do you feel safe at home: Yes 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 ED Constitutional Constitutional ED: Reports chills, fever(s) and malaise Eyes Eyes: Denies change in vision or diplopia ENT ENT ED: Denies rhinorrhea or sore throat Cardiovascular Cardiovascular: Denies chest pain or palpitations Respiratory/Chest Respiratory/Chest: Denies cough or dyspnea Gastrointestinal Gastrointestinal: Reports abdominal pain and nausea; Denies diarrhea, melena or vomiting Genitourinary Genitourinary ED: Denies dysuria or hematuria Musculoskeletal Musculoskeletal: Denies back pain or neck pain Integumentary Denies abscess or rash Neurologic Neurologic: Denies headache(s), paresthesias or weakness Psychiatric Psychiatric: Reports anxiety; Denies suicidal thoughts EXAM Physical Exam Const Vital Signs: 11/23/22 12:50 11/23/22 13:11 11/23/22 14:52 Temperature 96.5 F L 96.5 F L 97.7 F L Temperature Source Temporal Temporal Oral Pulse Rate 101 H 101 H 84 Respiratory Rate 18 18 16 Blood Pressure 113/71 113/71 138/74 H Blood Pressure Mean 85 85 95 Pulse Ox 97 97 97 Oxygen Delivery Method Room Air Room Air Room Air Positive well nourished and well developed General Appearance ED: well developed and NAD HEENT Reports moist mucous membranes normocephalic and atraumatic Eyes PERRL and EOMs intact bilaterally Neck full ROM and supple Resp normal respiratory effort and clear to auscultation bilaterally Cardio regular rate, regular rhythm and peripheral pulses 2+ throughout Rate: tachycardic Heart Sounds: murmur systolic III/ crescendo-decrescendo GI non-distended GI Narrative: Tender from the midpoint of the abdomen over to the right worst in the right upper quadrant voluntary guarding, with the patient grabbing the examiner's hand. There is no rebound tenderness. Abdomen is soft. Auscultation: normoactive bowel sounds Palpation: soft Back/Spine no CVA tenderness General Back: other FROM Extremity normal to inspection General Extremety ED: Negative for edema, pulses abnormal or tenderness General Extremity: Negative for edema or pulses abnormal Neuro oriented x3, CN's II-XII intact bilaterally and no sensory deficits noted Sensorium / Orientation: awake and alert Motor Exam: strength 5/5 throughout Psych thought process normal Mood & Affect: anxious and tearful Skin no rashes or lesions noted and no wounds MDM MDM MDM Narrative Medical decision making narrative: I repeated labs and CT with IV contrast on this patient while treating her pain and nausea and given her IV fluids. Her vital signs remained stable, she felt better after Dilaudid, the white blood count has gone up, and her CT shows evidence of worsening with likely microperforation but no organized abscess formation. Given IV cefepime, plan is for admission to medical surgical floor. Discussed with hospitalist. History & Record Review Additional record(s) reviewed:: Prior ED visit and Prior labs Lab Data Attestation: I reviewed the patient's lab results. Labs: Laboratory Results - last 24 hr 11/23/22 11/23/22 13:25 13:25 WBC 13.5 H RBC 4.67 Hgb 13.9 Hct 42.1 MCV 90.1 D MCH 29.8 MCHC 33.0 D RDW Std Deviation 44.1 H RDW Coeff of Bhavya 13.4 Plt Count 362 MPV 9.5 Immature Gran % (Auto) 0.400 Neut % (Auto) 76.2 H Lymph % (Auto) 13.5 L Lipscomb % (Auto) 9.0 Eos % (Auto) 0.5 Baso % (Auto) 0.4 Absolute Neuts (auto) 10.3 H Absolute Lymphs (auto) 1.82 Nucleated RBC % 0 Sodium 136 Potassium 3.6 Chloride 104 Carbon Dioxide 24.0 Anion Gap 8 BUN 11 Creatinine 0.84 Estim Creat Clear Calc 65.80 Est GFR (MDRD) Af Amer 87 Est GFR (MDRD) Non-Af 72 BUN/Creatinine Ratio 13.0 Glucose 106 Calcium 9.4 Radiography Diagnostic Testing: Clinical Impression(s) from Imaging Studies Abdomen/Pelvis CT 11/23/22 13:14 IMPRESSION: Interval worsening of previously noted acute diverticulitis involving the proximal transverse colon, the amount of colon involvement appears to have increased as has the amount of pericolonic inflammatory stranding and there is also now evidence to suspect microperforation although there is no organized abscess. Scattered colonic diverticulosis elsewhere particularly in the sigmoid colon without other evidence of acute diverticulitis. Small bowel ileus No suspicious solid organ abnormality Electronically Signed: Alexsander Clarke MD at 14:11 EDT Reading Location ID and State: [address] [place] [address] , Service support , Management Discussion w/another healthcare provider: Hospitalist Discharge Plan Dx/Rx/DC Orders Clinical Impression: Acute diverticulitis, Failure of outpatient treatment Disposition Disposition: Acute Care Hospital [facility] What to do if you have Problems For any increased pain, shortness of breath, bleeding, nausea or vomiting, chestpain, or any unexpected problems, contact your Primary Care Provider. Call [facility] ([phone]) or report to the closest Emergency Room. Call 911 if necessary. 11/23/22 1521 <Electronically signed by Johann Noble MD> Cosigner Signature (if applicable): CC: Dr. Nito Villalobos MD ~ Signed [facility] Work Phone: 1(627) 218-941804-13-[address] Noble [facility] November 23, 2022 3:21pm Note Date/Time November 23, 2022 1:1 8pm [facility] Medical Records Department [address] [place] [address] Emergency Department Summary 11/23/22 MR#: [id number] Acct: [id number] Name: IVORY IYER Rep #:[id number] : 1960 62 From: Johann Noble MD PCP: Dr. Nito Villalobos MD Status:[facility] ER Location: ED HPI HPI - GI History of Present Illness Chief Complaint: Abd Pain Informant: patient Abdominal Pain/Flank Pain Onset: Days (3) Context: Sudden Onset Timing: Continuous Quality: Aching Location: RUQ Current Severity: Severe Maximum Severity: Severe Worsened by: Movement Relieved by: Nothing Nausea/Vomiting/Emesis GI Symptom: Positive for Nausea; Negative for Vomiting Diarrhea/Melena/Hematochezia GI Symptom: Negative for Melena or Hematochezia Narrative Narrative: 62-year-old female was seen here 2 days ago and diagnosed with transverse colon diverticulitis for which she was started on Cipro and Flagyl. She has been nauseated but keeping her medications down, but she has been in an increasing amount of pain, it has been severe. She now is developed fevers. [facility] Medical History Abnormal EKG Dyspnea on exertion Essential hypertension Fatigue First degree AV block Nonrheumatic aortic valve insufficiency Obesity Prolonged QT interval SBO (small bowel obstruction) Small bowel obstruction Home Medications potassium chloride 20 mEq tablet,extended release(part/cryst) (Klor-Con M) 20 meq PO DAILY #90 tabs 06/14/20 [Rx Last Taken Unknown] olmesartan 40 mg tablet 20 mg PO DAILY 08/30/21 [History Last Taken Unknown] clobetasol 0.05 % topical ointment See Rx Instructions .Route .COMPLEX #30 grams05/09/22 [Rx Last Taken Unknown] ciprofloxacin HCl 500 mg tablet (Cipro) 500 mg PO BID #20 tabs 11/21/22 [Rx Last Taken Unknown] metronidazole 500 mg tablet 500 mg PO TID 10 days #30 tabs 11/21/22 [Rx Last Taken Unknown] ondansetron 4 mg disintegrating tablet 4 mg PO Q8H PRN PRN Nausea #10 tabs 11/21/22 [Rx Last Taken Unknown] Allergy/AdvReac Type Severity Reaction Status Date / Time hydrochlorothiazide AdvReac Severe SEVERE Verified 11/23/22 12:52 HYPOKALEMIA, hospitalized for it bee venom protein (honey bee) AdvReac Swelling Verified 11/23/22 12:52 Family History Uncle Diabetes Aunt Diabetes Surgical History H/O total hysterectomy History of appendectomy History of bowel resection History of right and left heart catheterization (02/10/19) Social History Smoking Status: Former smoker quit date: 08/13/12 pack-years: 10 alcohol intake: current details: social substance use type: does not use caffeine: Yes what type of physical activity do you participate in: bicycling and yoga frequency: 5-6 times per week seatbelt use: always do you feel safe at home: Yes 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 ED Constitutional Constitutional ED: Reports chills, fever(s) and malaise Eyes Eyes: Denies change in vision or diplopia ENT ENT ED: Denies rhinorrhea or sore throat Cardiovascular Cardiovascular: Denies chest pain or palpitations Respiratory/Chest Respiratory/Chest: Denies cough or dyspnea Gastrointestinal Gastrointestinal: Reports abdominal pain and nausea; Denies diarrhea, melena or vomiting Genitourinary Genitourinary ED: Denies dysuria or hematuria Musculoskeletal Musculoskeletal: Denies back pain or neck pain Integumentary Denies abscess or rash Neurologic Neurologic: Denies headache(s), paresthesias or weakness Psychiatric Psychiatric: Reports anxiety; Denies suicidal thoughts EXAM Physical Exam Const Vital Signs: 11/23/22 12:50 11/23/22 13:11 11/23/22 14:52 Temperature 96.5 F L 96.5 F L 97.7 F L Temperature Source Temporal Temporal Oral Pulse Rate 101 H 101 H 84 Respiratory Rate 18 18 16 Blood Pressure 113/71 113/71 138/74 H Blood Pressure Mean 85 85 95 Pulse Ox 97 97 97 Oxygen Delivery Method Room Air Room Air Room Air Positive well nourished and well developed General Appearance ED: well developed and NAD HEENT Reports moist mucous membranes normocephalic and atraumatic Eyes PERRL and EOMs intact bilaterally Neck full ROM and supple Resp normal respiratory effort and clear to auscultation bilaterally Cardio regular rate, regular rhythm and peripheral pulses 2+ throughout Rate: tachycardic Heart Sounds: murmur systolic III/ crescendo-decrescendo GI non-distended GI Narrative: Tender from the midpoint of the abdomen over to the right worst in the right upper quadrant voluntary guarding, with the patient grabbing the examiner's hand. There is no rebound tenderness. Abdomen is soft. Auscultation: normoactive bowel sounds Palpation: soft Back/Spine no CVA tenderness General Back: other FROM Extremity normal to inspection General Extremety ED: Negative for edema, pulses abnormal or tenderness General Extremity: Negative for edema or pulses abnormal Neuro oriented x3, CN's II-XII intact bilaterally and no sensory deficits noted Sensorium / Orientation: awake and alert Motor Exam: strength 5/5 throughout Psych thought process normal Mood & Affect: anxious and tearful Skin no rashes or lesions noted and no wounds MDM MDM MDM Narrative Medical decision making narrative: I repeated labs and CT with IV contrast on this patient while treating her pain and nausea and given her IV fluids. Her vital signs remained stable, she felt better after Dilaudid, the white blood count has gone up, and her CT shows evidence of worsening with likely microperforation but no organized abscess formation. Given IV cefepime, plan is for admission to medical surgical floor. Discussed with hospitalist. History & Record Review Additional record(s) reviewed:: Prior ED visit and Prior labs Lab Data Attestation: I reviewed the patient's lab results. Labs: Laboratory Results - last 24 hr 11/23/22 11/23/22 13:25 13:25 WBC 13.5 H RBC 4.67 Hgb 13.9 Hct 42.1 MCV 90.1 D MCH 29.8 MCHC 33.0 D RDW Std Deviation 44.1 H RDW Coeff of Bhavya 13.4 Plt Count 362 MPV 9.5 Immature Gran % (Auto) 0.400 Neut % (Auto) 76.2 H Lymph % (Auto) 13.5 L Lipscomb % (Auto) 9.0 Eos % (Auto) 0.5 Baso % (Auto) 0.4 Absolute Neuts (auto) 10.3 H Absolute Lymphs (auto) 1.82 Nucleated RBC % 0 Sodium 136 Potassium 3.6 Chloride 104 Carbon Dioxide 24.0 Anion Gap 8 BUN 11 Creatinine 0.84 Estim Creat Clear Calc 65.80 Est GFR (MDRD) Af Amer 87 Est GFR (MDRD) Non-Af 72 BUN/Creatinine Ratio 13.0 Glucose 106 Calcium 9.4 Radiography Diagnostic Testing: Clinical Impression(s) from Imaging Studies Abdomen/Pelvis CT 11/23/22 13:14 IMPRESSION: Interval worsening of previously noted acute diverticulitis involving the proximal transverse colon, the amount of colon involvement appears to have increased as has the amount of pericolonic inflammatory stranding and there is also now evidence to suspect microperforation although there is no organized abscess. Scattered colonic diverticulosis elsewhere particularly in the sigmoid colon without other evidence of acute diverticulitis. Small bowel ileus No suspicious solid organ abnormality Electronically Signed: Alexsander Clarke MD at 14:11 EDT , Management Discussion w/another healthcare provider: Hospitalist Discharge Plan Dx/Rx/DC Orders Clinical Impression: Acute diverticulitis, Failure of outpatient treatment Disposition Disposition: Acute Care Hospital [facility] What to do if you have Problems For any increased pain, shortness of breath, bleeding, nausea or vomiting, chestpain, or any unexpected problems, contact your Primary Care Provider. Call [facility] ([phone]) or report to the closest Emergency Room. Call 911 if necessary. 11/23/22 1521 <Electronically signed by Johann Noble MD> Cosigner Signature (if applicable): CC: Dr. Nito Villalobos MD ~ Signed [facility] Work Phone: [phone]) 617-136601-10-2023 Miscellaneous Notes* Telephone Encounter - Jeffery Weller LPN - 08/22/2022 11:34 AM EST Phone call placed no answer unable to leave a message, mailbox reported as full, YASSSUhart logon 08/21/2022 results viewed. Jeffery Weller LPN * Telephone Encounter - Mallory Casillas LPN - 08/22/2022 8:06 AM EST Unable to reach patient and mailbox is full-try later.Mallory Casillas LPN * Telephone Encounter - EDY Rendon - 08/22/2022 7:39 AM EST Please let patient know negative for covid and flu. [facility] Influenza virus A and B RNA and SARS-CoV-2 (COVID-19) N gene panel HOMAR+probe (Resp)COVID 19 RESULT: SARS-CoV-2 (Agent of COVID-19) Not Detected by RT-PCR or equivalent method. This test was developed and its performance characteristics determined by [facility] [place]. This test has been authorized by FDA under an Emergency Use Authorization (EUA). This test has been validated in accordance with the FDA's Guidance Document Policy for DiagnosticsTesting in Laboratories Certified to Perform High Complexity Testing under CLIA prior to Emergency use Authorization for Coronavirus Disease 2019 during the Public Health Emergency issued on October 11, 2019. Test performed by [facility], [facility] [place], [address] [place] [address]. INFLUENZA A PCR: Negative for Influenza A by RT-PCR INFLUENZA B PCR: Negative for Influenza B by RT-PCRSt. Mary'S Medical CenterComment on above: Performed By: #### [id number] #### [facility] CLIA [id number] [address] [place] [address] OF [id number] NoteHNO ID: [id number] Author: Jeovanny Almanza APRN.[employer]ATER Service: ? Author Type: Nurse Practitioner Type: [...] hyperplasstic rectal polyp ECHO TRANSESOPHAG CONGEN PROBE PLCMT IMGNG IANDR 02/10/2019 [facility] [...] ear normal. Nose: Congestion present. Mouth/Throat: Lips: [place]. Mouth: Mucous membranes are moist. Pharynx: Oropharynx [...] is no guarding o (more content not included)...[facility]01-09[facility] Instructions* Patient Instructions* Jeovanny Almanza APRN.[facility] - 08/21/2022 1:52 PM EST How to Manage Common Symptoms Associated with COVID for Adults Fever- Fever is a temperature over 100.4 F and can occur when the body is fighting an infection. Tohelp treat a fever: Drink plenty of fluids [...] your chest such as Vicks, which can helpreduce cough. Try cough drops. Avoid smoking and other strong odors or perfumes. Try breathing exercises to keep your lungs open and clear. Take a big deep breath through your noseand hold for 5 seconds before slowly releasing. [...] of water every 10-15 minutes and increase astolerated. You can try sucking an ice cube [...] or concerning to you. documented in this encounterB[facility] History of Present illness Narrative* Jeovanny Almanza APRN.CNP - 08/21/2022 1:40 PM EST Subjective HPI Nontoxic-appearing female presents urgent care chief complaint cough sore throat. Duration of symptoms 3 days. Associated symptoms with today's chief complaint are on and off headache, muscle aches, fatigue, nonproductive cough, and fever. Highest recorded temperature 100 last night. Patient statedsymptoms started abruptly. No OTC medications. States granddaughter [...] hyperplasstic rectal polyp ECHO TRANSESOPHAG CONGEN PROBE PLCAZ IMGNG I&R 02/10/2019 [facility] by Jimi Yi MD LIG/TRNSXJ FLP TUBE ABDL/VAG APPR UNI/BI Tubal ligation PAST SURGICAL HISTORY OF infant and 2012 bowel surgery TOTAL ABDOMINAL HYSTERECT W/WO RMVL TUBE OVARY Hysterectomy, TIFFANIE ALLERGIES Codeine and Prozac [Fluoxetine Hcl] MEDICATIONS clobetasol (TEMOVATE) 0.05 % cream APPLY THIN LAYER TWICE A DAY X 2 WEEKS THEN DAILY X2 WEEKS APPLYTHIN LAYER MASSAGE IN TO COVER AREA olmesartan [...] kg (187 lb 3.2 oz) SpO2 98% BMI29.32 kg/m Review of Systems Constitutional: Positive for [...] ear normal. Nose: Congestion present. Mouth/Throat: Lips: [place]. Mouth: Mucous membranes are moist. Pharynx: Oropharynx [...] of care. This note was generated using Backlift software. It may contain errors in wording, punctuation, or spelling. Jeovanny Almanza APRN.KADE documented in this encounterBrec[facility]09-[facility]-2022 NotePap Smear Specimen AdequacySeptember 2021 12:40pmComment.Satisfactory for evaluation. Endocervical and/or squamous metaplasticcells (endocervical component)are present.[facility] INTER[facility]ACED A#[id number] Valley Community Hospital Work Phone: Comment on above:Satisfactory for evaluation. Endocervical and/or squamous metaplasticcells (endocervical component)are present.Consult note Author Manny Bustamante [facility] June 22, 2023 11:07am Note Date/Time June 22, 2023 11:08am [facility] Medical Records Department [address] [place] [id number] Counseling Note - Pharmacy 06/22/23 1107 MR#: [id number] Acct: [id number] Name: IVORY IYER Rep #:[id number] : 1960 62 From: Manny Bustamante PCP: Dr. Nito Villalobos MD Status:ADM IN Y Location: [place] [address] Pharmacy MD Med Reconciliation Pharmacy Service has performed discharge medication reconciliation for this patient. The patient's discharge medication list was reviewed for discrepancies and discrepancies were resolved. Medications at Discharge Home Medications olmesartan 40 mg tablet 20 mg PO QHS bp 08/30/21 potassium chloride 20 mEq tablet,extended release(part/cryst) (Klor-Con M) 20 meq PO DAILY potassium supplement 11/23/22 iodine 150 mcg tablet 150 mcg PO DAILY supplement 06/20/23 multivitamin (Daily Multi-Vitamin tablet) 1 tab PO DAILY vitamin 06/20/23 vitamin B complex (B Complex-Vitamin B12 tablet) 1 tab PO DAILY vitamin 06/20/23 cholecalciferol (vitamin D3) 1 tab PO DAILY vitamin 06/21/23 clobetasol 0.05 % topical ointment 1 applic topical PRN health 06/21/23 coenzyme Q10 10 mg capsule mg PO supplement 06/21/23 vitamin B complex 1 tab PO DAILY vitamin 06/21/23 06/22/23 1107 <Electronically signed by Manny santana> Date _ Manny Bustamante Cosigner Signature (if applicable): Date CC: ~ Signed [facility] Work Phone: Discharge summary Author Dr. Kapadia [facility] November 25, 2022 9:25am Note Date/Time November 25, 2022 9:2 4am [facility] Medical Records Department [address] [place] [address] Instructions for Home/Discharge Instructions 11/25/22922 MR#: [id number] Acct: [id number] Name: IVORY IYER Rep #:[id number] : 1960 62 From: Paul Kapadia DO PCP: Dr. Nito Villalobos MD Status:ADM IN Discharge Instructions Diet Discharge Diet: No restrictions Activity Discharge Activity: Return to Normal Activity Weight Bearing Status: Full weight bearing Follow Up Care Test Results: Test results from this visit will be discussed in further detail at your follow- up appointment, if applicable. Discharge Plan Admission Admit Date/Time: 11/23/22 16:54 Primary Reason for Your Visit: diverticulitis Attending Provider: Paul Kapadia Primary Care Provider: Nito Villalobos Consulting Providers: Stephanie Elizalde Discharge Orders/Prescriptions Prescriptions: Continued ondansetron 4 mg tablet,disintegrating 4 mg PO Q8H PRN PRN (Reason: Nausea) Qty: 10 0RF metronidazole 500 mg tablet 500 mg PO TID ciprofloxacin HCl [Cipro] 500 mg tablet 500 mg PO BID potassium chloride [Klor-Con M20] 20 mEq tablet,ER particles/crystals 20 meq PO DAILY clobetasol 0.05 % ointment See Rx Instructions .ROUTE .COMPLEX Rx Instructions: APPLY TOPICALLY TO AFFECTEDAREA AT BEDTIME. MASSAGE IN GENTLY olmesartan 40 mg tablet 20 mg PO QHS Referrals / Follow Up: Nito Villalobos MD [Primary Care Provider] - Within 2 Weeks Disposition Disposition (needs filled in before D/C Order can be placed): Home, Self Care 11/25/22 0925<Electronically signed by Paul Kapadia DO>Paul Kapadia DO CC: Dr. Nito Villalobos MD; Dr. Stephanie Elizalde MD ~ Signed [facility] Work Phone: Discharge summary Author Carly Lorenz [facility] June 22, 2023 10:55am Note Date/Time June 22, 2023 10:53am [facility] Medical Records Department [address] [place] [address] Instructions for Home/Discharge Instructions 06/22/23 1053 MR#: [id number] Acct: [id number] Name: IVORY IYER Rep #:[id number] : 1960 62 From: Carly Lorenz MD PCP: Dr. Nito Villalobos MD Status:ADM IN Discharge Instructions Diet Discharge Diet: Light diet - advance as tolerated Activity Discharge Activity: Return to Normal Activity Follow Up Care Test Results: Test results from this visit will be discussed in further detail at your follow- up appointment, if applicable. Discharge Plan Admission Admit Date/Time: 06/21/23 00:25 Primary Reason for Your Visit: Partial bowel obstruction Attending Provider: Carly Lorenz Primary Care Provider: Nito Villalobos Consulting Providers: Ben Villafuerte; Sisi Vincent Instructions Patient Instructions: Bowel Obstruction Discharge Orders/Prescriptions Prescriptions: Continued potassium chloride [Klor-Con M20] 20 mEq tablet,ER particles/crystals 20 meq PO DAILY vitamin B complex [B Complex-Vitamin B12] Tablet 1 tab PO DAILY iodine 150 mcg tablet 150 mcg PO DAILY multivitamin [Daily Multi-Vitamin] Tablet 1 tab PO DAILY cholecalciferol (vitamin D3) [Vitamin D3] 1 tab PO DAILY vitamin B complex Tablet 1 tab PO DAILY coenzyme Q10 10 mg capsule PO clobetasol 0.05 % ointment 1 applic TOPICAL PRN olmesartan 40 mg tablet 20 mg PO QHS Referrals / Follow Up: Nito Villalobos MD [Primary Care Provider] - Within 1 Week Disposition Disposition (needs filled in before D/C Order can be placed): Home, Self Care 06/22/23 1055<Electronically signed by Carly Lorenz MD>Carly Lorenz MD CC: Dr. Sisi Vincent DO; Dr. Nito Villalobos MD; Dr. Ben Villafuerte MD ~ Signed [facility] Work Phone: evaluation note* Diagnosis Onset Date Resolution Status Essential hypertension acute Hyperlipidemia chronic Nonrheumatic aortic valve insufficiency chronic [facility] Work Phone: Evaluation note* Diagnosis Onset Date Resolution Status Lichen sclerosus et atrophicus chronic Encounter for routine gynecological examination noneactive [facility] Work Phone: evaluation note* Diagnosis Pharyngitis, unspecified etiology- Primary Viral illness Unspecified viral infection, in conditions classified elsewhere and of unspecified site documented in this encounter [facility] HospitalParkWhizaluation noteNo assessment information availableWHocking Valley Community Hospital Work Phone: evaluation note* Diagnosis Onset Date Resolution Status Acute diverticulitis acute Failure of outpatient treatment acute [facility] Work Phone: evaluation note* Diagnosis Onset Date Resolution Status Acute diverticulitis acute History of diverticulitis of colon acute Acute diverticulitis acute [facility] Work Phone: Evaluation note* Diagnosis Onset Date Resolution Status Acute diverticulitis acute History of diverticulitis of colon acute Acute diverticulitis acute Palpitations acute Essential hypertension chron ic Hyperlipidemia chronic Nonrheumatic aortic valve insufficiency [facility] Work Phone: Evaluation note* Diagnosis Viral URI- Primary Acute upper respiratory infections of unspecified site documented in this encounter [facility] [employer] note* Diagnosis Onset Date Resolution Status Palpitations acute Essential hypertension chron ic Hyperlipidemia chronic Nonrheumatic aortic valve insufficiency chronic Encounter for routine gynecological examination noneactive Abdominal pain acute Partial small bowel obstruction acute Small bowel obstruction acut e Hypertension chronic [facility] Work Phone: Evaluation note* Diagnosis Onset Date Resolution Status Palpitations acute Essential hypertension chron ic Hyperlipidemia chronic Nonrheumatic aortic valve insufficiency chronic Encounter for routine gynecological examination noneactive Abdominal pain acute Small bowel obstruction acut e Hypertension chronic Partial small bowel obstruction resolved [facility] Work Phone: Evaluation note* Diagnosis Onset Date Resolution Status Encounter for routine gynecological examination noneactive Hypertension chronic Abdominal pain resolved Partial small bowel obstruction resolved Small bowel obstruction reso lved [facility] Work Phone: Evaluation note* Diagnosis Onset Date Resolution Status Hypertension chronic Abdominal pain resolved Partial small bowel obstruction resolved Small bowel obstruction reso lved [facility] Work Phone: Evaluation note* Diagnosis Onset Date Resolution Status Admit Date AVD (aortic valve disease) acute February 16, 2025 9:07am Essential hypertension chronic Ju 2024 9:07am Hyperlipidemia chronic February 16, 2025 9:07am Thoracic aortic aneurysm chronic February 16, 2025 9:07am [facility] Work Phone: Hospital Discharge instructions Additional Instructions You have acute diverticulitis. You need to return for worsening symptoms.[facility] Work Phone: Reason for referral (narrative)No reason for referral information availableWHocking [facility] Work Phone: Summary Purpose Family History No Family History Records Found Relationship Condition Age at Onset Recorded Date/T madelaine uncle Diabetes mellitus Unknown aunt Diabetes mellitus Unknown Advance Directives No Advanced Directives Records Found Advance Directive Response Recorded Date/ Time Advance Directives Yes February 10 8:59am Living Will Yes July 30 6:55pm Power of Lathe Set Up Person Yes July 30, 2019 6:55pm Documents on File Type Date Recorded Patient Contract Mail Carrier Expl anation Advance Directive(s) 09/29/2019 8:57 AM Advance Directive(s) 09/29/2019 8:59 AM Advance Directive Response Recorded Date/ Time Advance Directives Yes February 10 7:59am Living Will Yes July 30 019 5:55pm Power of Lathe Set Up Person Yes July 30, 2019 5:55pm Advance Directive Response Recorded Date/ Time Name of Medical Power of Lathe Set Up Person Sisi Iyer November 21, 2022 2:05pm Advance Directives Yes September 11:12am Living Will Yes November 21, 2022 2:05pm Power of Lathe Set Up Person Yes November 21 2:05pm Advance Directive Response Recorded Date/ Time Name of Medical Power of Lathe Set Up Person Sisi Iyer November 21, 2022 2:05pm Name of Medical Power of Lathe Set Up Person sisi November 23, 2022 5:00pm Advance Directives Yes September 11:12am Living Will Yes November 23, 2022 5:00pm Power of Lathe Set Up Person Yes November 23 5:00pm Advance Directive Response Recorded Date/ Time Name of Medical Power of Lathe Set Up Person Sisi Iyer November 21, 2022 2:05pm Name of Medical Power of Lathe Set Up Person sisi November 23, 2022 5:00pm Advance Directives Yes September 11:12am Living Will Yes November 23, 2022 5:00pm Power of Lathe Set Up Person Yes November 23 5:00pm Name of Medical Power of Lathe Set Up Person SSII IYER January 30, 2023 11:22am Documents on File Type Date Recorded Patient Contract Mail Carrier Expl anation Advance Directive(s) 09/29/2019 8:59 AM Advance Directive(s) 09/29/2019 8:57 AM Advance Directive Response Recorded Date/ Time Name of Medical Power of Lathe Set Up Person sisi June 20, 2023 8:54pm Advance Directives Yes February 10 7:59am Living Will Yes June 20 8:54pm Power of Lathe Set Up Person Yes June 20, 2023 8:54pm Advance Directive Response Recorded Date/ Time Name of Medical Power of Lathe Set Up Person June 21, 2023 2:00am Advance Directives Yes February 10 7:59am Living Will Yes June 21 2:00am Power of Lathe Set Up Person Yes June 21, 2023 2:00am Advance Directive Response Recorded Date/ Time Advance Directives Yes February 10 8:59am Living Will Yes June 21 3:00am Power of Lathe Set Up Person Yes June 21, 2023 3:00am Advance Directive Response Recorded Date/ Time Living Will Yes August 14 10:51am Do you have a Healthcare Pow er of Lathe Set Up Person? Yes August 14, 2024 10:51am Name of Medical Power of Lathe Set Up Person - Dionicio pisano August 14, 2024 10:51am Advance Directives Yes September 11:12am Advance Directive Response Recorded Date/ Time Advance Directives Yes September 11:12am Chief Complaint and Reason for Visit Chief Complaint 6 M FU Reason for Visit Essential hypertensi on Hyperlipidemia Nonrheumatic aortic valve insufficiency Chief Complaint 6 M FU EORDER Reason for Visit Essential hypertensi on Hyperlipidemia Nonrheumatic aortic valve insufficiency Chief Complaint EORDER SCREENING Annual (AEROSPACE PROJECT ENGINEER) Reason for Visit Lichen sclerosus et atrophicus Encounter for routine gynecological examination Chief Complaint EORDER SCREENING Annual (AEROSPACE PROJECT ENGINEER) HX BOWEL EXTRUSION CHILD Reason for Visit Lichen sclerosus et atrophicus Encounter for routine gynecological examination Chief Complaint HX BOWEL EXTRUSION A S CHILD Chief Complaint RIGHT SIDED PAIN Chief Complaint RIGHT SIDED PAIN DIVERTICULITIS Reason for Visit Acute diverticulitis Failure of outpatient treatment Chief Complaint RIGHT SIDED PAIN DIVERTICULITIS DIVERTICULITIS Reason for Visit Acute diverticulitis Failure of outpatient treatment Chief Complaint RIGHT SIDED PAIN DIVERTICULITIS DIVERTICULITIS DIVERTICULITIS DIVERTICULITIS DIVERTICULTIS COLONOSCOPY EORDERS Reason for Visit Acute diverticulitis History of diverticulitis of colon Acute diverticulitis Chief Complaint RIGHT SIDED PAIN DIVERTICULITIS DIVERTICULITIS DIVERTICULITIS DIVERTICULITIS DIVERTICULTIS COLONOSCOPY EORDERS 1 Y FU Nonrheumatic aortic (valve) insufficiency Reason for Visit Acute diverticulitis History of diverticulitis of colon Acute diverticulitis Palpitations Essential hypertension Hyperlipidemia Nonrheumatic aortic valve insufficiency Chief Complaint 1 Y FU Nonrheumatic aortic (valve) insufficiency Amb Documentation SCREENING Annual (AEROSPACE PROJECT ENGINEER) R INFERIOR LATERAL KNEE PAIN RT KNEE OA ABDOMINAL PAIN, PARTIAL SMALL BOWEL OBSTRUCTION Reason for Visit Palpitations Essential hypertension Hyperlipidemia Nonrheumatic aortic valve insufficiency Encounter for routine gynecological examination Abdominal pain Partial small bowel obstruction Small bowel obstruction Hypertension Chief Complaint 1 Y FU Nonrheumatic aortic (valve) insufficiency Amb Documentation SCREENING Annual (AEROSPACE PROJECT ENGINEER) R INFERIOR LATERAL KNEE PAIN RT KNEE OA ABDOMINAL PAIN, PARTIAL SMALL BOWEL OBSTRUCTION ABDOMINAL PAIN, PARTIAL SMALL BOWEL OBSTRUCTION ABDOMINAL PAIN, PARTIAL SMALL BOWEL OBSTRUCTION Reason for Visit Palpitations Essential hypertension Hyperlipidemia Nonrheumatic aortic valve insufficiency Encounter for routine gynecological examination Abdominal pain Small bowel obstruction Hypertension Partial small bowel obstruction Chief Complaint SCREENING Annual (AEROSPACE PROJECT ENGINEER) R INFERIOR LATERAL KNEE PAIN RT KNEE OA ABDOMINAL PAIN, PARTIAL SMALL BOWEL OBSTRUCTION ABDOMINAL PAIN, PARTIAL SMALL BOWEL OBSTRUCTION ABDOMINAL PAIN, PARTIAL SMALL BOWEL OBSTRUCTION ABDOMINAL PAIN, PARTIAL SMALL BOWEL OBSTRUCTION Reason for Visit Encounter for routin e gynecological examination Hypertension Abdominal pain Partial small bowel obstruction Small bowel obstruction Chief Complaint R INFERIOR LATERAL K NEE PAIN RT KNEE OA ABDOMINAL PAIN, PARTIAL SMALL BOWEL OBSTRUCTION ABDOMINAL PAIN, PARTIAL SMALL BOWEL OBSTRUCTION ABDOMINAL PAIN, PARTIAL SMALL BOWEL OBSTRUCTION ABDOMINAL PAIN, PARTIAL SMALL BOWEL OBSTRUCTION EORDER Reason for Visit Hypertension Abdominal pain Partial small bowel obstruction Small bowel obstruction Chief Complaint EORDER EORDER- RIGHT WRIST Chief Complaint Admit Date SBO August 14, 2024 7: 33am SBO August 14, 2024 9: 13am SBO August 15, 2024 8: 09am SBO August 16, 2024 3: 32pm 6 M FU September 04, 2024 9 :46am R23.2 [place] October 01, 2024 9:56am EORDERS- FROM SEPTEMBER AND November 4:56pm Reason for Visit Admit Date Small bowel obstruction August 14 7:33am Aortic valve regurgitation September 04, 2024 9:46am Hypertension September 04, 2024 9 :46am Thoracic aortic aneurysm September 04, 025 9:46am Chief Complaint Admit Date EORDERS- FROM SEPTEMBER AND November 4:56pm POST SANDRA December 09, 2024 2:4 7pm 6 M FU February 16, 2025 9:07a m Reason for Visit Admit Date AVD (aortic valve disease) February 16 9:07am Essential hypertension February 16, 2025 9: 07am Hyperlipidemia February 16, 2025 9:07a m Thoracic aortic aneurysm February 16, 2025 9:07am Health Concerns Infection Onset Date Last Indicated Resolved Time COVID-19 Rule-Out 08/21/2022 08/21/2022 Infection Onset Date Last Indicated Resolved Time COVID-19 Rule-Out 08/21/2022 08/21/2022 08/22/2022 12:09 AM EST Additional Source Comments INFORMATION SOURCE (unrecogn ized section and content) DATE CREATED AUTHOR 01/31/2018 [facility] DATE CREATED AUTHOR AUTHOR'S ORGANIZ ATION 04/02/2019 [facility] DATE CREATED AUTHOR AUTHOR'S ORGANIZ ATION 06/03/2023 [facility] DATE CREATED AUTHOR AUTHOR'S ORGANIZ ATION 03/09/2025 [facility] Source Comments (unrecognize d section and content) In the event this informatio n is protected by the Federal Confidentiality of Alcohol and Drug Abuse Patient Records regulations: The Federal rules restrict any use of the information to criminally investigate or prosecute any alcohol or drug abuse patient.[facility] the event this information is protected by the Federal Confidentiality of Alcohol and Drug Abuse Patient Records regulations: The Federal rules restrict any use of the information to criminally investigate or prosecute any alcohol or drug abuse patient.[facility] the event this information is protected by the Federal Confidentiality of Alcohol and Drug Abuse Patient Records regulations: The Federal rules restrict any use of the information to criminally investigate or prosecute any alcohol or drug abuse patient.[facility] Reason for Visit (unrecogniz ed section and content) Reason Comments Cough ST, intermittent low fevers, fatigue x3 days Reason Comments Results Reason Comments Nasal Congestion sore throat and feve r x 2 days Care Teams (unrecognized sec tion and content) Administrative Staff Supervisor Relationship Specialty Start Date End Date Nito Villalobos MD [address] [place] [id number] PCP - General Family Medicine 11/22/20 Jimi Yi MD Referring Cardiology 02/28/19 Administrative Staff Supervisor Relationship Specialty Start Date End Date Nito Villalobos MD [address] [place] [address] PCP - General Family Medicine 11/22/20 Jimi Yi MD Referring Cardiology 02/28/19 Team Status: Active Member Role Status Dates Dr. Sailaja Elizalde MD Family Provider Active Dr. Nito Villalobos MD Primary Care Provider Active Team Status: Inactive Member Role Status Dates Dr. Nito Villalobos MD Primary Care Provide r, Attending Provider, Referring Provider Active Team Status: Inactive Member Role Status Dates Dr. Nito Villalobos MD Primary Care Provider Active Dr. Lloyd Salazar MD Emergency Provider Active Team Status: Active Member Role Status Dates Dr. Nito Villalobos MD Primary Care Provider Active Dr. Johann Noble MD Emergency Provider Active Dr. Stephanie Elizalde MD Admit Provider, Attending Provi alana Active Team Status: Active Member Role Status Dates Dr. Nito Villalobos MD Primary Care Provider Active Dr. Johann Noble MD Emergency Provider Active Dr. Stephanie Elizalde MD Admit Provider, A ttending Provider, Other Provider Active Team Status: Inactive Member Role Status Dates Dr. Nito Villalobos MD Primary Care Provider Active Dr. Johann Noble MD Emergency Provider Active Dr. Stephanie Elizalde MD Admit Provider, Other Provider Active Dr. Paul Kapadia DO Attending Provider Active Team Status: Active Member Role Status Dates Dr. Nito Villalobos MD Primary Care Provider Active Dr. Johann Noble MD Emergency Provider Active Dr. Stephanie Elizalde MD Admit Provider, Other Provider Active Dr. Paul Kapadia DO Attending Provider, Other Pro vider Active Team Status: Inactive Member Role Status Dates Dr. Nito Villalobos MD Primary Care Provider, Referring P alejandro Active Dr. Lenny Shrestha MD Attending Provider Active Team Status: Active Member Role Status Dates Dr. Nito Villalobos MD Primary Care Provider, Referring P rovider Active Dr. Lenny Shrestha MD Attending Provider, Other Prov ider Active Team Status: Inactive Member Role Status Dates Dr. Nito Villalobos MD Primary Care Provider Active Dr. Lloyd Salazar MD Attending Provider, Emergency Pro vider Active Team Status: Inactive Member Role Status Dates Dr. Nito Villalobos MD Primary Care Provider Active Dr. Lenny Shrestha MD Attending Provider, Referring Provider Active Team Status: Inactive Member Role Status Dates Dr. Nito Villalobos MD Primary Care Provider, Referring P rovider Active Gareth Bryant BELL ATTENDANT, BELL ATTENDANT-C Attending Provider Active Team Status: Active Member Role Status Dates Dr. Nito Villalobos MD Primary Care Provider Active Dr. Carlyn Pickard MD Attending Provider Active Team Status: Inactive Member Role Status Dates Dr. Nito Villalobos MD Primary Care Provider Active Gareth Bryant BELL ATTENDANT, BELL ATTENDANT-C Attending Provider, Referring Pro vider Active Administrative Staff Supervisor Relationship Specialty Start Date End Date Nito Villalobos MD [address] [place] [id number] PCP - General Family Medicine 11/22/20 Jimi Yi MD Referring Cardiology 02/28/19 Team Status: Inactive Member Role Status Dates Dr. Nito Villalobos MD Primary Care Provider, Referring P rovider Active Sendy Roche CNM Attending Provider Active Team Status: Active Member Role Status Dates Dr. Nito Villalobos MD Primary Care Provider Active Gareth Bryant BELL ATTENDANT, BELL ATTENDANT-C Attending Provider Active Team Status: Inactive Member Role Status Dates Dr. Nito Villalobos MD Primary Care Provider Active Dr. Katya Marshall MD Attending Provider, Referr ing Provider Active Team Status: Active Member Role Status Dates Dr. Nito Villalobos MD Primary Care Provider Active Dr. Patrice Schmidt DO Emergency Provider Active Dr. Sisi Vincent DO Admit Provider, Attending Pr ovider Active Team Status: Inactive Member Role Status Dates Dr. Nito Villalobos MD Primary Care Provider Active Dr. Ben Herrera DO Attending Provider, Referring Provider Active Team Status: Active Member Role Status Dates Dr. Nito Villalobos MD Primary Care Provider Active Dr. Patrice Schmidt DO Emergency Provider Active Dr. Sisi Vincent , DO Admit Provider, Other Provid er Active Dr. Ben Villafuerte MD Attending Provider, Other Provi alana Active Dr. Carly Lorenz MD Other Provider Active Team Status: Active Member Role Status Dates Dr. Nito Villalobos MD Primary Care Provider Active Dr. Patrice Schmidt DO Emergency Provider Active Dr. Sisi Vincent DO Admit Provider, Other Provid er Active Dr. Ben Villafuerte MD Other Provider Active Dr. Carly Lorenz MD Other Provider Active Dr. Kristin Caldwell MD Attending Provider Active Team Status: Inactive Member Role Status Dates Dr. Nito Villalobos MD Primary Care Provider Active Dr. Partice Schmidt DO Emergency Provider Active Dr. Sisi Vincent DO Admit Provider, Other Provid er Active Dr. Ben Villafuerte MD Other Provider Active Dr. Carly Lorenz MD Attending Provider Active Team Status: Active Member Role Status Dates Dr. Nito Villalobos MD Primary Care Provider Active Dr. Patrice Schmidt DO Emergency Provider Active Dr. Sisi Vincent DO Admit Provider, Other Provid er Active Dr. Ben Villafuerte MD Attending Provider, Other Provi alana Active Dr. Carly Lorenz MD Referring Provider, Other Provid er Active Team Status: Active Member Role Status Dates Dr. Nito Villalobos MD Primary Care Provider Active Dr. Patrice Schmidt DO Emergency Provider Active Dr. Sisi Vincent DO Admit Provider, Other Provid er Active Dr. Ben Villafuerte MD Other Provider Active Dr. Carly Lorenz MD Attending Provider, Other Provid er Active Team Status: Inactive Member Role Status Dates Dr. Nito Villalobos MD Primary Care Provider Active Gavino Melendez MD Attending Provider Active Team Status: Inactive Member Role Status Dates Dr. Nito Villalobos MD Primary Care Provider Active Gavino Melendez MD Attending Provider, Referring Provide r Active Team Status: Active Member Role Status John Melendez MD Primary Care Provider Active Team Status: Inactive Member Role Status John Melendez MD Primary Care Provider Active St art: August 14, 2024 End: August 16, 2024 Dr. Ariel Melendez , DO Emergency Provider Activ e Start: August 14, 2024 End: August 16, 2024 Dr. Clifton Gregory MD Admit Provider Active Start: August 14, 2024 End: August 16, 2024 Dr. Clifton Gregory MD Attending Provider Active Start: August 14, 2024 End: August 16, 2024 Team Status: Active Member Role Status John Melendez MD Primary Care Provider Active St art: August 14, 2024 Dr. Ariel Melendez , DO Emergency Provider Activ e Start: August 14, 2024 Dr. Clifton Gregory MD Admit Provider Active Start: August 14, 2024 Dr. Clifton Gregory MD Attending Provider Active Start: August 14, 2024 Dr. Clifton Gregory MD Other Provider Active Start: August 14, 2024 Team Status: Active Member Role Status John Melendez MD Primary Care Provider Active St art: August 15, 2024 Dr. Ariel Melendez , DO Emergency Provider Activ e Start: August 15, 2024 Dr. Clifton Gregory MD Admit Provider Active Start: August 15, 2024 Dr. Clifton Gregory MD Attending Provider Active Start: August 15, 2024 Dr. Clifton Gregory MD Other Provider Active Start: August 15, 2024 Team Status: Active Member Role Status John Melendez MD Primary Care Provider Active St art: August 16, 2024 Dr. Ariel Melendez DO Emergency Provider Activ e Start: August 16, 2024 Dr. Clifton Gregory MD Admit Provider Active Start: August 16, 2024 Dr. Clifton Gregory MD Attending Provider Active Start: August 16, 2024 Dr. Clifton Gregory MD Other Provider Active Start: August 16, 2024 Team Status: Inactive Member Role Status John Melendez MD Primary Care Provider Active St art: September 04, 2024 End: September 04, 2024 Gavino Melendez MD Referring Provider Active Start : September 04, 2024 End: September 04, 2024 Dr. Carlyn Pickard MD Attending Provider Active Start: September 04, 2024 End: September 04, 2024 Team Status: Inactive Member Role Status John Melendez MD Primary Care Provider Active St art: September 10, 2024 End: September 10, 2024 Dr. Carlyn Pickard MD Attending Provider Active Start: September 10, 2024 End: September 10, 2024 Dr. Carlyn Pickard MD Referring Provider Active Start: September 10, 2024 End: September 10, 2024 Team Status: Inactive Member Role Status John Melendez MD Primary Care Provider Active St art: September 19, 2024 End: September 19, 2024 Gavino Melendez MD Attending Provider Active Start : September 19, 2024 End: September 19, 2024 Gavino Melendez MD Referring Provider Active Start : September 19, 2024 End: September 19, 2024 Team Status: Inactive Member Role Status oJhn Melendez MD Primary Care Provider Active St art: October 01, 2024 End: October 01, 2024 Gavino Melendez MD Attending Provider Active Start : October 01, 2024 End: October 01, 2024 Gavino Melendez MD Referring Provider Active Start : October 01, 2024 End: October 01, 2024 Team Status: Inactive Member Role Status John Melendez MD Primary Care Provider Active St art: November 21, 2024 End: November 21, 2024 Gavino Melendez MD Attending Provider Active Start : November 21, 2024 End: November 21, 2024 Gavino Melendez MD Referring Provider Active Start : November 21, 2024 End: November 21, 2024 Team Status: Active Member Role/Relationship Status John Melendez MD Primary Care Provider Active Team Status: Inactive Member Role/Relationship Status John Melendez MD Primary Care Provider Active St art: November 21, 2024 End: November 21, 2024 Gavino Melendez MD Attending Provider Active Start : November 21, 2024 End: November 21, 2024 Gavino Melendez MD Referring Provider Active Start : November 21, 2024 End: November 21, 2024 Team Status: Inactive Member Role/Relationship Status John Melendez MD Primary Care Provider Active St art: December 09, 2024 End: December 09, 2024 Gavino Melendez MD Attending Provider Active Start : December 09, 2024 End: December 09, 2024 Gavino Melendez MD Referring Provider Active Start : December 09, 2024 End: December 09, 2024 Team Status: Inactive Member Role/Relationship Status Dates Gavino Meelndez MD Primary Care Provider Active St art: February 16, 2025 End: February 16, 2025 Gavino Melendez MD Referring Provider Active Start : February 16, 2025 End: February 16, 2025 EDY Valdes Attending Provider Active St art: February 16, 2025 End: February 16, 2025 FOR RECORDS PERTAINING TO PATIENTS WHO ARE [...] BE BASED ON THE PRIMARY CLINICAL RECORDS. [facility] [employer] provides no warranty or guarantee of the accuracy or completeness of information in this document.
== END | disposition home or self-care (01) ==
LOC: CT 06:23
PROVIDERS: PCP Family Medicine; Referring Provider Student in an Organized Health Care Education/Training Program; Visit Provider Student in an Organized Health Care Education/Training Program
DX: I71.20 Thoracic aortic aneurysm, without rupture, unspecified (principal)
CPT/HCPCS: 71275; Q9967

== ENCOUNTER → 2025-03-26 | Outpatient (CLI) | payer MEDICARE, OTHER, SELFPAY ==
[2025-03-26 10:49] LABS: Free T3 3.9 pg/mL (2.18-3.98)
== END | disposition home or self-care (01) ==
LOC: MTLAB 08:58
PROVIDERS: PCP Family Medicine; Referring Provider Family Medicine; Visit Provider Family Medicine
DX: E03.8 Other specified hypothyroidism (principal)
CPT/HCPCS: 36415; 84439; 84443; 84481

== ENCOUNTER → 2025-06-04 | Outpatient (CLI) | payer MEDICARE, OTHER, SELFPAY ==
--- NOTE | 2025-06-04 08:15 | BI_ITS ---
EXAM: SCRN MAMM (CAD)W/VISHNU BILAT DATE: 06/04/2025 CLINICAL HISTORY: F, Age 64 y/o , SCREEN FOR BREAST CANCER No family history. TECHNIQUE: Procedure Code: [id number] Modality: MG Procedure: SCRN MAMM (CAD)W/VISHNU BILAT COMPARISON: Prior exam(s) dated May 08, 2024.. FINDINGS: TISSUE DENSITY: There are scattered areas of fibroglandular density. Bilateral Breast Mammographic Findings: Focal area of architectural distortion in the superior retroareolar region of the left breast. The patient will be recalled for additional views including 90 degree lateral and compression spot views. BI/SCRN MAMM (CAD)W/VISHNU BILAT IMPRESSION: Focal area of architectural distortion in the superior retroareolar region of t he left breast as described. The patient will be recalled for additional views including 90 degree lateral and compression spot views. OVERALL FINAL ASSESSMENT BI-RADS 0: INCOMPLETE - NEED ADDITIONAL IMAGING EVALUATION. RECOMMENDATION: Additional Views obtained/call backs Additional Recommendation none A letter with findings and recommendations will be mailed to the patient. Reading Location: [place] [id number]
== END | disposition home or self-care (01) ==
PROVIDERS: PCP Family Medicine; Referring Provider Obstetrics & Gynecology; Visit Provider Obstetrics & Gynecology
DX: Z12.31 Encounter for screening mammogram for malignant neoplasm of breast (principal)
CPT/HCPCS: 77063; 77067

== ENCOUNTER → 2025-06-09 | Outpatient (CLI) | payer MEDICARE, OTHER, SELFPAY ==
--- NOTE | 2025-06-09 08:55 | US_ITS ---
PROCEDURE: BREAST LIMITED UNILATERAL 06/09/2025 REASON FOR EXAM: F, Age 64 y/o , ABN MAMM Abnormal screening mammogram. COMPARISON: Prior mammogram done earlier today as well as June 04, 2025.. TECHNIQUE: Procedure Code: [id number] Modality: US Procedure: BREAST LIMITED UNILATERAL. The 12 o'clock position of the left breast was examined with ultrasound. FINDINGS: There is a 7 mm x 6 mm x 3 mm benign-appearing lymph node. There is also evidence of dilated ducts. US/Breast Limited Unilateral IMPRESSION: Retroareolar ductal dilatation. Findings suggestive of a 7 mm x 6 mm x 3 mm benign-appearing lymph node. BI-RADS 2: BENIGN RECOMMENDATION: Routine annual follow-up in 1 Year Reading Location: [id number]
--- NOTE | 2025-06-09 08:55 | BI_ITS ---
EXAM: DIAG MAMM W/CAD, UNILAT N/A CLINICAL HISTORY: F, Age 64 y/o , ABN MAMM. Abnormal screening mammogram. TECHNIQUE: Procedure Code: [id number] Modality: MG Procedure: DIAG MAMM W/CAD, UNILAT.. Compression spot views of the left breast were obtained. COMPARISON: Prior exam(s) dated June 04, 2025.. FINDINGS: TISSUE DENSITY: There are scattered areas of fibroglandular density. Bilateral Breast Mammographic Findings: No significant masses, calcifications or other abnormalities are identified. No definite abnormality is seen on the additional views. Sonographic correlation recommended. BI/DIAG MAMM W/CAD, UNILAT IMPRESSION: No suspicious abnormality is seen. Follow-up sonographic correlation recommend ed. OVERALL FINAL ASSESSMENT BI-RADS 0: INCOMPLETE - NEED ADDITIONAL IMAGING EVALUATION. RECOMMENDATION: Ultrasound Recommended Additional Recommendation none A letter with findings and recommendations will be mailed to the patient. Reading Location: [facility]
== END | disposition home or self-care (01) ==
LOC: OPBI 08:53
PROVIDERS: PCP Family Medicine; Referring Provider Obstetrics & Gynecology; Visit Provider Obstetrics & Gynecology
DX: R92.8 Other abnormal and inconclusive findings on diagnostic imaging of breast (principal)
CPT/HCPCS: 76642; 77061; 77065; G0279

== ENCOUNTER 2025-08-07 08:00 | Outpatient (RCR) | payer MEDICARE, OTHER, SELFPAY ==
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
--- NOTE | 2025-08-07 12:31 | HP.PTREVAL ---
Re-Evaluation Intro: Gavino Melendez MD, It has been my pleasure to treat JASSON GRIMALDO over the last 5 visits for IT MUSCLE PAIN. Please see the progress note below for an update on the physical therapy plan of care! Subjective Subjective: PATIENT REPORTS SHE HAS BEEN ON VACATION AND SINCE BACK HOME BUSY WITH THE HOLIDAYS. SHE REPORTS HER LEG HAS BEEN REALLY GOOD. SHE HAS SOME R LOW BACK SORE/UNCOMFORTABLENESS. SHE REPORTS SHE HAS BEEN FOLLOWING PRINCIPLES TALKED ABOUT AND EX'S GIVEN FOR THE MOST PART. REPORTS SHE SLEPT WELL IN [place] AND LEFT [place] LAST NIGHT. SHE STATES THINGS HAVE CHANGED AND IT HAS BEEN A REAL HEALING JOURNEY. PATIENT ALSO STATES I WILL TELL YOU WHAT, I AM JUST SO HAPPY WITH MY LEG, I AM TICKLED PINK. I AM LEARNING TO LISTEN TO MY PAIN. SHE STATES SHE TRIED 3 YOGA CLASSES IN [facility]. AND MODIFIED ACCORDING TO WHAT SHE HAS LEARNED IN PT. Objective Objective/Function: PATIENT WAS SEEN TODAY FOR RE-ASSESSMENT OF PROGRESS TOWARD THE SET PT GOALS AND THE NEED FOR FURTHER PHYSICAL THERAPY VS READINESS FOR DISCHARGE. PATIENT IS A GOOD CANDIDATE TO CONTINUE PT BASED ON PROGRESS MADE AND ROOM FOR FURTHER IMPROVEMENT. PATIENT IS AGREEABLE. UPON EXAM TODAY: Motor deficit: L HIP 4/5, KNEE 5/5, ANKLE 5/5. L HIP 4/5, KNEE EXT 5/5, ANKLE 5/5. Dural Signs: NEGATIVE TOMER LE'S. Lumbar mvmt loss: flex - NIL ext - MOD R SG - MOD - INCREASES R BACK - NW L SG - MIN - DECREASES R BACK - BETTER Core strength: FAIR TO GOOD Palpation: MILD L345 PARASPINAL REGION TENDERNESS. INCREASED MUSCLE TONE R LUMBAR PARASPINALS. NO LONGER HAVING RIGHT LATERAL THIGH TENDERNESS. NO ACUTE GREATER TROCH TENDERNESS. AND NO VERTEBRAL TENDERNESS. Plan Plan Plan: CONTINUE PT 1-2 TIMES A WK X 2-4 WKS PROGRESS CORE AND HIP STRENGTHENING. POSTURE CORRECTION/STRENGTHENING, INSTRUCTION IN APPROPRIATE BODY MECHANICS AND ACTIVITY MODIFICATIONS. DLS STARTING WITH A NEUTRAL SPINE PROGRESSING ROM TOLERATED. TOMER LE ROM, STRETCHING (WITH FOCUS ON IT BAND, HIP ER'S, HS'S AND CALF) AND STRENGTHENING. HEP INSTRUCTION. Balance/Gait/Functional tests Balance/Special Test Scores Lower Extremity Functional Score: 60 Goals Goals Goal 1:: DECREASE C/O LOW BACK AND R LE PAIN BY AT LEAST 50%. Goal Time Frame: 2-4 Weeks Goal Progress: Goal Met Goal 2:: IMPROVE HIP FLEXION, RISING FROM SITTING, R SDLYING, GETTING INTO THE CAR, DON/DOFF R SHOE AND SOCK, AND STAIR CLIMBING FUNCTION WITH PATIENT REPORTING AT LEAST 50% OVER-ALL IMPROVEMENT IN ADLS PRIOR TO LEAVING ON TRIP. Goal Time Frame: 2-4 Weeks Goal Progress: Goal Met Goal 3:: INSTRUCT IN PROPHYLAXIS Goal Time Frame: 2-4 Weeks Goal Progress: Progressing Goal 4:: INCREASE FUNCTIONAL CORE AND HIP STRENGTH TO IMPROVE ADL FUNCTION Goal Time Frame: 2-4 Weeks Anticipated Interventions Anticipated Interventions Patient/Client Instruction: Educate patient on: Condition, Plan of Care and Risk Factors For the Purpose of:: To improve self management Therapeutic Exercise to Include: Strength training, Body mechanics, Postural training, Flexibilty training, Gait and locomotor training, Neuromotor development, In an aquatic setting and Dynamic Lumbar Stabilization For the Purpose of:: To decrease pain, To improve muscle performance and motor function, To improve ability to perform ADL's, To increase tolerance to activity/condition/position, To improve ability of physical actions for home/community/work/leisure, To improve gait and locomotor functions, To increase flexibility/ROM and To improve self management TENS: Yes IF ES: Yes Cryotherapy (ice pack, ice massage): Yes Thermo therapy (hot pack): Yes Ultrasound (thermal/non thermal): Yes For the Purpose of:: To decrease pain, To decrease swelling/inflammation and To improve nutrient delivery to tissue Re-Evaluation Ending Re-evaluation ending: Please do not hesitate to contact me at [phone] by phone or if you have questions or concerns regarding this new plan of care! Sincerely, Demetria Ford, PT, Cert MDT
--- NOTE | 2025-08-18 13:56 | HP.PTDCNRP_ITS ---
Patient Information Patient Information: JASSON GRIMALDO was seen in my office for initial evaluation on 07/08/25. The following Plan of Care was established for this patient: POC Established Initial Frequency: 2x /Week Initial Duration: 4-6 Weeks Anticipated Interventions Patient/Client Instruction: Educate patient on: Condition, Plan of Care and Risk Factors For the Purpose of:: To improve self management Therapeutic Exercise to Include: Strength training, Body mechanics, Postural training, Flexibilty training, Gait and locomotor training, Neuromotor development, In an aquatic setting and Dynamic Lumbar Stabilization For the Purpose of:: To decrease pain, To improve muscle performance and motor function, To improve ability to perform ADL's, To increase tolerance to activity/condition/position, To improve ability of physical actions for home/community/work/leisure, To improve gait and locomotor functions, To incre ase flexibility/ROM and To improve self management TENS: Yes IF ES: Yes Cryotherapy (ice pack, ice massage): Yes Thermo therapy (hot pack): Yes Ultrasound (thermal/non thermal): Yes For the Purpose of:: To decrease pain, To decrease swelling/inflammation and To improve nutrient delivery to tissue Last Seen Last Seen: This patient was last seen in our office 08/07/25. Pertinent comments regarding their Physical therapy will appear below: It has been my pleasure to see this patient for a total of 5 visits. This PT rec'd message from patient thanking us for our service and stating the tools she has have been healing and should she need therapy in the future she will reach out. At this point I will be discontinuing this patient from physical therapy. I w ould be happy to see this patient again in the future if found appropriate by the physician. Thank you! Demetria Ford, PT, Cert MDT Balance/Gait/Functional tests Balance/Special Test Scores Lower Extremity Functional Score: 60
== END 2025-08-07 19:00 | disposition home or self-care (01) ==
LOC: PT 08:00
PROVIDERS: PCP Family Medicine; Referring Provider Family Medicine; Visit Provider Family Medicine
DX: M76.30 Iliotibial band syndrome, unspecified leg (principal)
CPT/HCPCS: 97035; 97162; 97530